=== PATIENT | female | born 1935 | race Two or more races ===

== ENCOUNTER 2016-07-03 10:22 | Inpatient (IN) | payer MEDICARE, OTHER ==
[~2016-07-03] VITALS: Ht 157.5 cm; Wt 64.3 kg
--- NOTE | 2016-07-03 11:22 | RADRPT ---
PROCEDURE: XR Chest. CLINICAL INDICATION: Chest pain TECHNIQUE: Chest PA and lateral COMPARISON: None available FINDINGS: Sternotomy and CABG. Left humeral ORIF. The mediastinal structures are unremarkable. There is calcification of the thoracic aorta (consiste nt with atherosclerosis). The heart is normal in size and configuration. The pulmonary vascularity is normal. There is mild interstitial disease.. No consolidation is identified. The pleural spac es are unremarkable. There is diffuse osteopenia. There are senescent changes of the axial skeleton. IMPRESSION: Calcification of the thoracic aorta (consistent with atherosclerosis). Mild interstitial disease No evidence for active cardiopulmonary disease. RPTAT: HGDB .Reed Whitten MD, MD Date Time Electronically viewed and signed by .Reed Whitten MD, MD on 07/03/2016 11:22 .B/
--- NOTE | 2016-07-03 11:26 | RADRPT ---
PROCEDURE: XR Pelvis. CLINICAL INDICATION: Pelvic pain TECHNIQUE: Single AP view performed. COMPARISON: No prior studies are available for comparison. FINDINGS: There is diffuse osteopenia. There is an acute nondisplaced right subcapital femoral fracture. The hip joints are unremarkable. The sacroiliac joints are unremarkable. The soft tissues are unremarka ble. IMPRESSION: Diffuse osteopenia Acute nondisplaced right subcapital femoral fracture RPTAT: HGDB Case was discussed with Dr. Luevano .Reed Whitten MD, MD Date Time Electronically viewed and signed by .Reed Whitten MD, on 07/03/2016 11:26 .B/
--- NOTE | 2016-07-03 11:28 | RADRPT ---
PROCEDURE: XR right hip. CLINICAL INDICATION: Hip pain TECHNIQUE: AP and lateral views available for review. COMPARISON: None available FINDINGS: There is diffuse osteopenia. There is an acute nondisplaced subcapital femoral fracture. No osseou s lesions are identified. The joints are unremarkable. The soft tissues are unremarkable. IMPRESSION: Diffuse osteopenia Acute nondisplaced subcapital femoral fracture RPTAT: HGDB Case discussed with Dr. Luevano .Reed Whitten MD, MD Date Time Electronically viewed and signed by .Reed Whitten MD, MD on 07/03/2016 11:27 .B/
[2016-07-03 11:33] LABS: BASOPHILS % 0.4 % (0.0-2.0); EOSINOPHILS # 0.1 10^3/ul (0.0-0.5); EOSINOPHILS % 0.8 % (0.0-7.0); HEMATOCRIT 25.3 % (37.0-47.0); HEMOGLOBIN 8.6 g/dl (12.0-16.0); LYMPHOCYTES % 15.9 % (15.0-51.0); MEAN CORPUSCULAR HEMOGLOBIN 30.2 pg (29.0-33.0); MEAN CORPUSCULAR HGB CONC 33.9 g/dl (32.0-37.0); MEAN PLATELET VOLUME 8.1 fl (7.4-10.4); MONOCYTE # 0.5 10^3/ul (0.3-0.9); NEUTROPHILS % 75.9 % (39.0-77.0); PLATELET COUNT 203 10^3/UL (140-440); RED BLOOD COUNT 2.84 10^6/ul (4.20-5.40); RED CELL DISTRIBUTION WIDTH 16.3 % (11.5-14.5); UNCORRECTED WBC 6.6 10^3/ul (4.8-10.8); WHITE BLOOD COUNT 6.6 10^3/ul (4.8-10.8)
[2016-07-03 11:37] LABS: CONDITION 1; INR 1.13; LH ANALYZER COMMENTS 1; PROTIME 14.5 Sec (12.2-14.2); PT RATIO 1.1
[2016-07-03 11:38] LABS: PARTIAL THROMBOPLASTIN TIME 30.5 Sec (25.0-35.0)
[2016-07-03 11:43] LABS: CHLORIDE 113 mmol/L (97-110); SODIUM 142 mmol/L (135-144)
[2016-07-03 11:46] LABS: CREATININE 2.98 mg/dl (0.44-1.00)
[2016-07-03 11:47] LABS: ANION GAP 23 (8-16); BLOOD UREA NITROGEN 53 mg/dl (7-20); CALCIUM 9.2 mg/dl (8.4-10.2); CARBON DIOXIDE 12 mmol/L (21-31); GLUCOSE 146 mg/dl (70-220)
[2016-07-03 11:52] LABS: TROPONIN-I < 0.012 ng/ml (0.00-0.12)
[2016-07-03 11:53] LABS: POTASSIUM 6.4 mmol/L (3.5-5.1)
[2016-07-03] MEDS ORDERED: BISACODYL 10 MG SUPP PR PRN (12:00)
[2016-07-03] MEDS ORDERED: HYDROCODONE/APAP (5/325) TAB PO PRN (12:00)
[2016-07-03] MEDS ORDERED: ACETAMINOPHEN 650 MG SUPP PR PRN (12:00)
[2016-07-03] MEDS ORDERED: hydrALAzine 20 MG INJ IV PRN (12:00)
[2016-07-03] MEDS ORDERED: NA POLYST SULFON 15 GM/60 ML BTL PO ONE (12:00)
[2016-07-03] MEDS ORDERED: NACL 0.9% 3 ML SYG IV SCH (12:00)
[2016-07-03] MEDS ORDERED: ONDANSETRON 4 MG INJ IV PRN (12:00)
[2016-07-03] MEDS ORDERED: ARIP2TAB8 PO (12:01)
[2016-07-03] MEDS ORDERED: SERT50TA PO (12:01)
[2016-07-03] MEDS ORDERED: SPIR25TA PO (12:02)
[2016-07-03] MEDS ORDERED: CARV12.579 PO (12:02)
[2016-07-03] MEDS ORDERED: CRES10 PO (12:03)
[2016-07-03] MEDS ORDERED: BENA5TAB2 PO (12:03)
[2016-07-03] MEDS ORDERED: CLOP75TA27 PO (12:04)
[2016-07-03 12:05] LABS: ADD UMIC YES; URINE BILIRUBIN (Dip) NEGATIVE (NEGATIVE); URINE BLOOD (Dip) TRACE (NEGATIVE); URINE COLOR LT. YELLOW (YELLOW); URINE GLUCOSE (Dip) NEGATIVE (NEGATIVE); URINE KETONES (Dip) NEGATIVE (NEGATIVE); URINE LEUKOCYTE ESTERASE (Dip) 1+ (NEGATIVE); URINE NITRITE (Dip) NEGATIVE (NEGATIVE); URINE TOTAL PROTEIN (Dip) 1+ (NEGATIVE); URINE UROBILINOGEN (Dip) 0.2 E.U./dL (0.1-1.0)
[2016-07-03] MEDS ORDERED: FERR220S2 PO (12:05)
--- NOTE | 2016-07-03 12:06 | ERA ---
ER Documentation Chief Complaint Date/Time DATE: 07/03/16 TIME: 1027 Chief Complaint ground level fall with R hip pain HPI 80-year-old female presents to the emergency department by ambulance complaining of right hip pain. It is a limited Jamaican speaker. History available from my conversations with the family. According to the family, patient had a mechanical slip and fall yesterday. Since then, she has been unable to bear weight on the right lower extremity. She continued to have severe pain in the paramedics were called this morning. She reports no numbness or tingling. In regards to the fall, she reports no loss of consciousness, palpitations or syncopal type sensations. 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 Pre-hospital vital signs were reviewed. Pre-hospital diagnostic tests were reviewed. ROS All systems reviewed and are negative except as per history of present illness. Medications Home Meds Reported Medications Carvedilol* (Carvedilol*) 12.5 Mg Tablet, 12.5 MG PO BID, #60 TAB 07/03/16 Sertraline Hcl* (Zoloft*) 50 Mg Tablet, 50 MG PO DAILY, #30 TAB 07/03/16 Aripiprazole* (Abilify*) 2 Mg Tablet, 2 MG PO DAILY, #30 TAB 07/03/16 FmHx Noncontributory for chief complaint Physical Exam Vitals Vital Signs Date Time Temp Pulse Resp B/P Pulse Ox O2 Delivery O2 Flow Rate FiO2 07/03/16 11:25 98.3 85 20 137/85 98 Room Air 07/03/16 10:27 96.9 97 20 186/80 95 Physical Exam GENERAL: Patient is a frail elderly ill-appearing female HEENT: Pupils equal, round, and reactive to light. EOMI. There is no scleral icterus. NECK: C-spine is soft and supple, there is no meningismus. There is no cervical lymphadenopathy. LUNGS: Clear to auscultation bilaterally. There are no rales, wheezes or rhonchi. HEART: Regular rate and rhythm, no murmurs, clicks, rubs or gallops. ABDOMEN: Soft, non-tender, non-distended. There are bowel sounds in all four quadrants. No rebound or guarding. EXTREMITIES: There is no peripheral cyanosis or edema. No focal swelling or erythema. Patient is uncomfortable moving the right hip in flexion. The other extremities appear to be normal NEURO: The patient moves all four extremities with 5/5 strength. Cranial nerves II - XII are intact. Normal gait. Alert and oriented SKIN: There is no apparent rash or petechiae. HEME/LYMPHATIC: There is no evidence of excessive bruising or lymphedema. PSYCHIATRIC: The patient does not appear anxious or depressed. Result Diagram: 07/03/16 1045 07/03/16 1045 Results 24 hrs Laboratory Tests Test 07/03/16 10:45 Activated Partial Thromboplast Time 30.5Sec Anion Gap 23 Basophils # 0.010^3/ul Basophils % 0.4% Blood Morphology Comment Blood Urea Nitrogen 53mg/dl Calcium Level 9.2mg/dl Carbon Dioxide Level 12mmol/L Chloride Level 113mmol/L Creatinine 2.98mg/dl Eosinophils # 0.110^3/ul Eosinophils % 0.8% Glucose Level 146mg/dl Hematocrit 25.3% Hemoglobin 8.6g/dl INR International Normalized Ratio 1.13 Lymphocytes # 1.010^3/ul Lymphocytes % 15.9% Mean Corpuscular Hemoglobin 30.2pg Mean Corpuscular Hemoglobin Concent 33.9g/dl Mean Corpuscular Volume 89.0fl Mean Platelet Volume 8.1fl Monocytes # 0.510^3/ul Monocytes % 7.0% Neutrophils # 5.010^3/ul Neutrophils % 75.9% Nucleated Red Blood Cells # 0.010^3/ul Nucleated Red Blood Cells % 0.0/100WBC Platelet Count 38171^3/UL Potassium Level 6.4mmol/L Prothrombin Time 14.5Sec Prothrombin Time Ratio 1.1 Red Blood Count 2.8410^6/ul Red Cell Distribution Width 16.3% Sodium Level 142mmol/L Troponin I < 0.012ng/ml White Blood Count 6.610^3/ul Current Medications Medications (Trade) Dose Ordered Sig/Chriss Route PRN Reason Start Time Stop Time Status Last Admin Dose Admin IV Flush (NS 3 ml) 3 ml PER PROTOCOL IV 07/03/16 12:00 UNV Ondansetron HCl (Zofran Inj) 4 mg Q6H PRN IV NAUSEA AND/OR VOMITING 07/03/16 12:00 UNV Acetaminophen (Tylenol Tab) 650 mg Q6H PRN PO PAIN LEVEL 1-3 OR FEVER 07/03/16 12:00 UNV Acetaminophen (Tylenol Supp) 650 mg Q6H PRN [place] PAIN LEVEL 1-3 OR FEVER 07/03/16 12:00 UNV Acetaminophen/ Hydrocodone Bitart ([place] (5/325)) 1 tab Q6H PRN PO MODERATE PAIN LEVEL 4-6 07/03/16 12:00 UNV Acetaminophen/ Hydrocodone Bitart ([place] (5/325)) 2 tab Q6H PRN PO SEVERE PAIN LEVEL 7-10 07/03/16 12:00 UNV Morphine Sulfate (morphine) 2 mg Q4H PRN IV SEVERE PAIN LEVEL 7-10 07/03/16 12:00 UNV Docusate Sodium (Colace) 100 mg Q12H PRN PO CONSTIPATION 07/03/16 12:00 UNV Magnesium Hydroxide (Milk Of Mag) 30 ml DAILY PRN PO CONSTIPATION 07/03/16 12:00 UNV Bisacodyl (Dulcolax Supp) 10 mg DAILY PRN [place] CONSTIPATION 07/03/16 12:00 UNV Pantoprazole (Protonix Iv) 40 mg DAILY@06 IV 07/04/16 06:00 UNV Hydralazine HCl (Apresoline) 10 mg Q4 PRN IV sbp>160 07/03/16 12:00 UNV Procedures/MDM Patient was taken to a room, seen and evaluated. Comfort measures were initiated. Diagnostic tests were ordered and reviewed. 3 LEAD RHYTHM STRIP: Normal sinus rhythm without ectopy EK lead EKG reviewed by myself: Normal Sinus Rhythm Left axis deviation Nonspecific ST and T-wave changes without ST elevation or peak T waves Impression: Abnormal EKG with no evidence of severe hyperkalemia or significant ischemia RADIOLOGY: reviewed with the radiologist CONSULTATION: hospitalist was notified for admission. Nephrology consultation will be arranged via the hospitalist. I spoke with Dr. Byrd for orthopedic consultation REEVALUATION: Patient remained hemodynamically stable and comfortable in the emergency room MEDICAL DECISION MAKING: Patient presents after a fall. From a trauma standpoint, patient has been evaluated for significant injury. Patient is evidence of a operative hip fracture that will require admission to the hospital From a medical standpoint, the fall seems to be related to a geriatric syndrome with multiple causes. I have reviewed medications and evaluated the patient for infection, electrolyte concerns, ischemia and other acute medical concerns. Patient has evidence of worsening renal failure with what appears to be now dialysis requiring renal failure with an acidosis and hyperkalemia as well as a significant anemia. Nephrology consultation will be arranged and patient will require dialysis. I have provided Kayexalate. Patient has no EKG changes and does not require further intervention for the potassium. CRITICAL CARE: Time:>35 minutes Patient has a significant chance of clinical deterioration Treatments/Evaluations: Close monitoring and treatment of vital signs, renal status, severe electrolyte concerns, as well as orthopedic injuries Departure Diagnosis: Primary Impression: Closed right hip fracture Additional Impressions: Renal failure Acidosis Hyperkalemia ISRA REAL Jul 03, 2016 12:06
[2016-07-03] MEDS ORDERED: SIN25100 PO (12:07)
[2016-07-03] MEDS ORDERED: MEG40/1 PO (12:08)
[2016-07-03] MEDS ORDERED: ASPI-664 PO (12:09)
[2016-07-03] MEDS ORDERED: SITA1TAB PO (12:10)
[2016-07-03] MEDS ORDERED: FLUT16SP17 NASAL (12:11)
[2016-07-03] MEDS ORDERED: LORA10TA3 PO (12:12)
[2016-07-03] MEDS ORDERED: MECL-77 PO (12:13)
[2016-07-03] MEDS ORDERED: ESOM40CA PO (12:13)
[2016-07-03] MEDS ORDERED: XOP15INH INH (12:14)
[2016-07-03 12:16] LABS: BACTERIA,URINE MODERATE; URINE RBCS 0-2 /HPF (0)
[2016-07-03] MEDS: morphine 2 MG INJ IV PRN ×2 (13:17→21:31)
[2016-07-03] MEDS ORDERED: morphine 4 MG/ML VIAL IV STA (13:17)
--- NOTE | 2016-07-03 13:59 | CONS ---
Date/Time of Note Date/Time of Note DATE: 07/03/16 TIME: 13:55 Assessment/Plan Assessment/Plan Chief Complaint/Hosp Course Pre-op evaluation: The patient is to potentially undergo moderate risk surgery. She has a h/o cardiac disease including CABG but does not have active angina and in general is able to do her ADLs without symptoms. She does have an aortic stenosis murmur which on exam does not appear to be more than moderate but will need an echo to evaluate severity. If no severe , she should tolerate surgery and is at moderate risk. Hyperkalemia: likely from aldactone, ACEI s/p mechanical fall with hip fracture: awaiting surgical eval Chronic renal failure: per my discussion with her oncologist, her Cr was 3.3 2 weeks ago. 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 The patient is not able to provide much history but per the family she slipped in the restroom. The patient is able to ambulate on her own in the house without chest pain or SOB. per HPI Social History Smoking Status: Never smoker Exam/Review of Systems Vital Signs Vitals Vital Signs Date Time Temp Pulse Resp B/P Pulse Ox O2 Delivery O2 Flow Rate FiO2 07/03/16 11:25 98.3 85 20 137/85 98 Room Air Exam Constitutional: alert, oriented Head: atraumatic, normocephalic Neck: No jvd Respiratory: clear to auscultation, No crackles/rales Cardiovascular: regular rate and rhythm, systolic murmur (3/6 mid-late peaking , preserved S2), No edema Gastrointestinal: soft, No non-tender Neurological: nl mental status, nl speech Skin: No rash or lesions Results EKG: sinus, nonspecific conduction delay, nonspecific TW changes Result Diagram: 07/03/16 1045 07/03/16 1045 Results 24 hrs Laboratory Tests Test 07/03/16 10:45 07/03/16 11:33 Activated Partial Thromboplast Time 30.5 Anion Gap 23 H Basophils # 0.0 Basophils % 0.4 Blood Morphology Comment Blood Urea Nitrogen 53 H Calcium Level 9.2 Carbon Dioxide Level 12 L Chloride Level 113 H Creatinine 2.98 H Eosinophils # 0.1 Eosinophils % 0.8 Glucose Level 146 Hematocrit 25.3 L Hemoglobin 8.6 L INR International Normalized Ratio 1.13 Lymphocytes # 1.0 Lymphocytes % 15.9 Mean Corpuscular Hemoglobin 30.2 Mean Corpuscular Hemoglobin Concent 33.9 Mean Corpuscular Volume 89.0 Mean Platelet Volume 8.1 Monocytes # 0.5 Monocytes % 7.0 Neutrophils # 5.0 Neutrophils % 75.9 Nucleated Red Blood Cells # 0.0 Nucleated Red Blood Cells % 0.0 Platelet Count 203 Potassium Level 6.4 *H Prothrombin Time 14.5 H Prothrombin Time Ratio 1.1 Red Blood Count 2.84 L Red Cell Distribution Width 16.3 H Sodium Level 142 Troponin I < 0.012 White Blood Count 6.6 Urine Bacteria MODERATE Urine Bilirubin NEGATIVE Urine Clarity CLOUDY Urine Color LT. YELLOW Urine Epithelial Cells FEW Urine Glucose NEGATIVE Urine Hemoglobin TRACE Urine Ketones NEGATIVE Urine Leukocyte Esterase 1+ H Urine Microscopic RBC 0-2 Urine Microscopic WBC 5-10 Urine Nitrite NEGATIVE Urine Specific [place] 1.020 Urine Total Protein 1+ H Urine Urobilinogen 0.2 E.U./dL Urine pH 5.5 Medications Medications Current Medications Ondansetron HCl (Zofran Inj) 4 mg Q6H PRN IV NAUSEA AND/OR VOMITING; Start at 12:00 Acetaminophen (Tylenol Tab) 650 mg Q6H PRN PO PAIN LEVEL 1-3 OR FEVER; Start at 12:00 Acetaminophen (Tylenol Supp) 650 mg Q6H PRN [place] PAIN LEVEL 1-3 OR FEVER; Start 07/03/16 at 12:00 Acetaminophen/ Hydrocodone Bitart ([place] (5/325)) 1 tab Q6H PRN PO MODERATE PAIN LEVEL 4-6; Start 07/03/16 at 12:00 Acetaminophen/ Hydrocodone Bitart ([place] (5/325)) 2 tab Q6H PRN PO SEVERE PAIN LEVEL 7-10; Start 07/03/16 at 12:00 Morphine Sulfate (morphine) 2 mg Q4H PRN IV SEVERE PAIN LEVEL 7-10 Last administered on 07/03/16t 13:17; Admin Dose 2 MG; Start 07/03/16 at 12:00 Docusate Sodium (Colace) 100 mg Q12H PRN PO CONSTIPATION; Start 07/03/16 at 12: 00 Magnesium Hydroxide (Milk Of Mag) 30 ml DAILY PRN PO CONSTIPATION; Start at 12:00 Bisacodyl (Dulcolax Supp) 10 mg DAILY PRN [place] CONSTIPATION; Start 07/03/16 at 12 :00 Pantoprazole (Protonix Iv) 40 mg DAILY@06 IV ; Start 07/03/16 at 13:00 Hydralazine HCl (Apresoline) 10 mg Q4 PRN IV sbp>160; Start 07/03/16 at 12:00 CINDY MACEDO Jul 03, 2016 13:59
[2016-07-03] MEDS ORDERED: INSULIN LISPRO 100 UNIT/ML VIAL SC STA (14:13)
[2016-07-03] MEDS ORDERED: LEVALBUTEROL (HFA) 15 GM INHALER INH PRN (14:30)
[2016-07-03] MEDS ORDERED: DEXTROSE 50% 50 ML SYRINGE IV ONE (14:30)
[2016-07-03] MEDS ORDERED: MECLIZINE 25 MG TAB PO PRN (14:30)
[2016-07-03] MEDS ORDERED: CA GLUCONATE (50 MG/ML) IV SYG IV* ONE (14:30)
--- NOTE | 2016-07-03 14:30 | HP ---
Date/Time of Note Date/Time of Note DATE: 07/03/16 TIME: 14:17 Assessment/Plan VTE Prophylaxis VTE Prophylaxis Intervention: SCD's Lines/Catheters Urinary Cath still in place: Yes Reason Cath still needed: other (indicate) (monitor I&O) Assessment/Plan Chief Complaint/Hosp Course Assessment and plan 1. Right hip fracture. Considering patient's cardiac history we'll get cardiology clearance. Follow-up on echocardiogram. Orthopedic surgeon notified. Continue with analgesics as needed. Tentative plan for surgical intervention on 07/04/2016 2. 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 Patient does follow-up with her physician Dr. Valenzuela as outpatient for this issue. She is status post radiation therapy reportedly 3 weeks ago. Patient follow-up with outpatient oncologist 3. Renal insufficiency. Patient was reported he told that she needed to have dialysis. We'll get knowledge architect to follow. 4. Hyperkalemia. Patient with potassium of 6.4. We'll give hyperkalemia cocktail. Follow-up with knowledge architect recommendations 5. Anemia likely of chronic disease. We'll follow-up on iron panel. Transfuse PRBC as needed 6. History of CAD with previous CABG. We'll resume patient's antiplatelet therapy 7. Essential hypertension. Tinea on antihypertensives and adjust as needed 8. History of dyslipidemia. Follow-up on fasting lipid panel. 9. Reported history of diabetes. Follow up on A1c Admission process time is 40 minutes Discussed plan of care with Dr. Gross Problems: HPI/ROS Admit Date/Time Admit Date/Time Hx of Present Illness This is a 80-year-old female with past medical history of reported left-sided breast cancer status post mastectomy as well as bone metastasis, myocardial infarction roughly 2003 with CABG, depression, diabetes, hypertension, dyslipidemia, obesity, who came to [facility] after suffering from a mechanical fall. According to the patient she was going to the restroom at roughly 12 AM last night. She reported that she tripped and fell. She denies any loss of consciousness or chest pain or shortness of breath or any dizziness or headache associated with it. She did report that she only fell on her right hip and subsequently went to [facility] for further evaluation. She did have pelvic x-ray that did show acute right subcapital femoral fracture. She was also noted to be slightly anemic with hemoglobin of 8.6 and hematocrit 25.3. She did have potassium of 6.4 BUN of 53 and a creatinine of 2.98. Initial troponin was 0.012. Of note patient did state that she does follow-up with her primary care physician as outpatient (Dr. Valenzuela: [phone]). She was told that she would need to be started on dialysis soon. Currently the patient remains alert and oriented. She does report having some right hip pain. No other specific complaints. We will evaluate her for the aforementioned issues ROS 12 point review of systems obtained and entirely negative except that mentioned in the history of present illness PMH/Family/Social Past Medical History left-sided breast cancer status post mastectomy as well as bone metastasis, myocardial infarction roughly 2003 with CABG, depression, diabetes, hypertension , dyslipidemia, obesity Social History Alcohol Use: none Smoking Status: Never smoker Drug Use: none Exam/Review of Systems Vital Signs Vitals Vital Signs Date Time Temp Pulse Resp B/P Pulse Ox O2 Delivery O2 Flow Rate FiO2 07/03/16 11:25 98.3 85 20 137/85 98 Room Air Exam Exam General: No acute signs or symptoms of distress Eyes: pupils equal round, Anicteric sclera Neck: Supple nontender, no JVD Cardiac: S1, S2 auscultated, regular rhythm and rate Pulmonary: No coarse rhonchi or breathing auscultated GI: Abdomen soft nontender nondistended, bowel sounds active Extremities: Pain on palpation of bilateral lower extremity Skin: Clean dry and intact Neurologic: Alert to person place and time and situation Labs Result Diagram: 07/03/16 1045 07/03/16 1045 Medications Medications Current Medications Ondansetron HCl (Zofran Inj) 4 mg Q6H PRN IV NAUSEA AND/OR VOMITING; Start at 12:00 Acetaminophen (Tylenol Tab) 650 mg Q6H PRN PO PAIN LEVEL 1-3 OR FEVER; Start at 12:00 Acetaminophen (Tylenol Supp) 650 mg Q6H PRN [place] PAIN LEVEL 1-3 OR FEVER; Start 07/03/16 at 12:00 Acetaminophen/ Hydrocodone Bitart ([place] (5/325)) 1 tab Q6H PRN PO MODERATE PAIN LEVEL 4-6; Start 07/03/16 at 12:00 Acetaminophen/ Hydrocodone Bitart ([place] (5/325)) 2 tab Q6H PRN PO SEVERE PAIN LEVEL 7-10; Start 07/03/16 at 12:00 Morphine Sulfate (morphine) 2 mg Q4H PRN IV SEVERE PAIN LEVEL 7-10 Last administered on 07/03/16t 13:17; Admin Dose 2 MG; Start 07/03/16 at 12:00 Docusate Sodium (Colace) 100 mg Q12H PRN PO CONSTIPATION; Start 07/03/16 at 12: 00 Magnesium Hydroxide (Milk Of Mag) 30 ml DAILY PRN PO CONSTIPATION; Start at 12:00 Bisacodyl (Dulcolax Supp) 10 mg DAILY PRN [place] CONSTIPATION; Start 07/03/16 at 12 :00 Pantoprazole (Protonix Iv) 40 mg DAILY@06 IV ; Start 07/03/16 at 13:00 Hydralazine HCl (Apresoline) 10 mg Q4 PRN IV sbp>160; Start 07/03/16 at 12:00 Dextrose (D50w Syringe) 50 ml ONCE ONCE IV ; Start 07/03/16 at 14:30; Stop at 14:31; Status UNV Calcium Gluconate (Ca Gluc (Nicu)) 2 mg ONCE ONCE IV* ; Start 07/03/16 at 14:30 ; Stop 07/03/16 at 14:31; Status UNV JUNI NUNEZ Jul 03, 2016 14:29
[2016-07-03] MEDS ORDERED: NA BICARBONATE 8.4% 50 ML SYG ONE (14:55)
[2016-07-03] MEDS ORDERED: NA BICARBONATE 8.4% 50 ML SYG IV STA (14:58)
[2016-07-03] MEDS ORDERED: CALCIUM GLUCONATE 10% 2 GM in SOD CHLORIDE 0.9% 100 ML IVPB ONE (15:00)
[2016-07-03] MEDS ORDERED: GLUCAGON 1 MG INJ IM PRN (15:00)
[2016-07-03] MEDS ORDERED: DEXTROSE 50% 50 ML SYRINGE IV PRN ×2 (15:00)
[2016-07-03] MEDS ORDERED: GLUCOSE GEL 15 GRAM TUBE BUCCAL PRN (15:00)
[2016-07-03] MEDS ORDERED: GLUCOSE GEL 15 GRAM TUBE PO PRN ×2 (15:00)
[2016-07-03 15:05] LABS: HAAIG REFLEX REFLEX FILED
[2016-07-03 16:06] LABS: HEPATITIS B CORE ANTIBODY NEGATIVE (NEGATIVE)
--- NOTE | 2016-07-03 16:13 | RADRPT ---
PROCEDURE: Renal US. CLINICAL INDICATION: Acute kidney injury. TECHNIQUE: Multiple sonographic images of the kidneys were obtained. The images were reviewed on a PACS workstation. COMPARISON: No. FINDINGS: The kidneys are well visualized. The right kidney measures 10.7 cm sagittal by 4.4 x 5.5 cm.. The le ft kidney measures 10.6 cm sagittal by 4.7 x 4.4 cm. The kidneys are echogenic. There is blood flow to both kidneys. Urinary bladder is unremarkable. There is no evidence of hydronephrosis. IMPRESSION: 1. Bilateral echogenic kidneys consistent with medical renal disease. 2. No evidence of hydronephrosis. RPTAT:AAJJ Physician Justice Date Time Electronically viewed and signed by Physician Justice on 07/03/2016 16:13 ARASELI/
[2016-07-03 18:20] VITALS: TEMP 98.3
[2016-07-03 19:36] VITALS: Ht 157.5 cm; Wt 64.3 kg
--- NOTE | 2016-07-03 19:38 | QN ---
Documentation Comment [id number] consult A/P YOLETTE HYPERKALEMIA DM CKD HIP FRACTURE ANEMIA METABOLIC ACIDOSIS PLAN PER ORDER PERRY ALVARES MD Jul 03, 2016 19:38
[2016-07-03 20:02] VITALS: BP 134/63; RESP 15
[2016-07-03 20:45] VITALS: PULSE 99
[2016-07-03] MEDS: FLUTICASONE 0.05% 16 GM NAS SPRAY NASAL SCH (21:00)
[2016-07-03] MEDS: INSULIN ASPART [NOVOLOG] 3 ML PEN SC SCH (21:00)
[2016-07-03] MEDS: ATORVASTATIN 10 MG TAB PO SCH (21:31)
[2016-07-03] MEDS: BENAZEPRIL 5 MG TAB PO SCH (21:31)
[2016-07-04] VITALS (11 sets, daily range): BP systolic 114–139; BP diastolic 57–67; PULSE 80–94; RESP 18–20
[2016-07-04] MEDS: INSULIN ASPART [NOVOLOG] 3 ML PEN SC SCH ×6 (00:36→20:50)
[2016-07-04] MEDS: ACETAMINOPHEN 325 MG TAB PO PRN ×2 (07:09→20:40)
[2016-07-04] MEDS: PANTOPRAZOLE 40 MG INJ IV SCH (07:09)
[2016-07-04] MEDS: morphine 2 MG INJ IV PRN ×2 (07:40→09:11)
[2016-07-04 07:52] LABS: BASOPHILS % 0.4 % (0.0-2.0); EOSINOPHILS # 0.1 10^3/ul (0.0-0.5); EOSINOPHILS % 2.8 % (0.0-7.0); HEMATOCRIT 24.4 % (37.0-47.0); HEMOGLOBIN 8.4 g/dl (12.0-16.0); LYMPHOCYTES # 0.5 10^3/ul (0.8-2.9); MEAN CORPUSCULAR HEMOGLOBIN 30.4 pg (29.0-33.0); MEAN CORPUSCULAR HGB CONC 34.5 g/dl (32.0-37.0); MEAN CORPUSCULAR VOLUME 88.2 fl (82.0-101.0); MEAN PLATELET VOLUME 7.8 fl (7.4-10.4); MONOCYTE # 0.4 10^3/ul (0.3-0.9); MONOCYTES % 9.1 % (0.0-11.0); NEUTROPHIL # 3.3 10^3/ul (1.6-7.5); NEUTROPHILS % 75.7 % (39.0-77.0); PLATELET COUNT 181 10^3/UL (140-440); RED BLOOD COUNT 2.77 10^6/ul (4.20-5.40); RED CELL DISTRIBUTION WIDTH 16.7 % (11.5-14.5); UNCORRECTED WBC 4.4 10^3/ul (4.8-10.8); WHITE BLOOD COUNT 4.4 10^3/ul (4.8-10.8)
[2016-07-04 07:57] LABS: CONDITION 1; LH ANALYZER COMMENTS 1
[2016-07-04 08:07] LABS: ALBUMIN 4.1 g/dl (3.3-4.9)
[2016-07-04 08:09] LABS: CREATININE 2.59 mg/dl (0.44-1.00); POTASSIUM 4.7 mmol/L (3.5-5.1)
[2016-07-04 08:10] LABS: ALBUMIN/GLOBULIN RATIO 1.17; BILIRUBIN,INDIRECT 0.1 mg/dl (0-1.1); BILIRUBIN,TOTAL 0.1 mg/dl (0.2-1.3); CALCIUM 9.1 mg/dl (8.4-10.2); PHOSPHORUS 3.6 mg/dl (2.5-4.9); TOTAL PROTEIN 7.6 g/dl (6.1-8.1)
[2016-07-04 08:11] LABS: CHOL/HDL RATIO 4.5 RATIO; MAGNESIUM 1.8 mg/dl (1.7-2.5)
[2016-07-04 08:20] LABS: T3 UPTAKE 35.9 % (23.5-40.5)
[2016-07-04 08:34] LABS: THYROID STIMULATING HORMONE 3.02 MIU/L (0.465-4.680)
[2016-07-04] MEDS: ARIPIPRAZOLE 2 MG TAB PO SCH (08:58)
[2016-07-04] MEDS: CARBIDOPA/LEVODOPA (25/100) TAB PO SCH (08:58)
[2016-07-04] MEDS: BENAZEPRIL 5 MG TAB PO SCH ×2 (08:58→20:41)
[2016-07-04] MEDS: SPIRONOLACTONE 25 MG TAB PO SCH (08:59)
[2016-07-04] MEDS: CLOPIDOGREL 75 MG TAB PO SCH (08:59)
[2016-07-04] MEDS: SERTRALINE 50 MG TAB PO SCH (08:59)
[2016-07-04] MEDS: LORATADINE 10 MG TAB PO SCH (08:59)
[2016-07-04] MEDS: ASPIRIN (EC) 81 MG TAB PO SCH (09:00)
[2016-07-04] MEDS ORDERED: INFLUENZA VIRUS VACCINE 0.5 ML (DISPENSING) IM* ONE (09:00)
[2016-07-04] MEDS: FLUTICASONE 0.05% 16 GM NAS SPRAY NASAL SCH ×3 (09:00→23:56)
[2016-07-04] MEDS: SODIUM BICARBONATE (IV ADD) 100 MEQ in DEXTROSE 5% 900 ML IV SCH ×3 (09:12→23:50)
--- NOTE | 2016-07-04 09:54 | CONS ---
DATE OF ADMISSION: 07/03/2016 DATE OF CONSULTATION: TYPE OF CONSULTATION: Nephrology. Thank you, Dr. Gill, for kindly asking me to see this patient in nephrology consultation. HISTORY OF PRESENT ILLNESS: The patient is an elderly female with history of CKD, hypertension, dyslipidemia, diabetes mellitus who presented with right hip pain after a fall. Patient noted to have a hematocrit 25.3, potassium 6.4, and got Kayexalate and repeat was 5.2. 5.2. In view of patient's abnormal electrolytes, nephrology consultation was requested. Patient had ultrasound of the kidney done that shows bilateral echogenic kidneys. The patient also had a pelvic x-ray that shows acute nondisplaced right subcapital femoral fracture. A hip x-ray showed acute nondisplaced subcapital femoral fracture and a chest x- ray shows calcification of the thoracic aorta and mild interstitial disease. PAST MEDICAL HISTORY: The patient's past medical history as mentioned, diabetes , hypertension, CKD, and history of CAD, dyslipidemia, history of CABG, history of anemia, history of breast cancer, status post surgery and treatment. The patient also has a history of depression. ALLERGIES 1. PENICILLIN. 2. AMPICILLIN. SOCIAL HISTORY: Negative. FAMILY HISTORY: Negative. MEDICATION HISTORY: The patient at home is on 1. Abilify. 2. Aspirin. 3. Benazepril. 4. Carbidopa/levodopa. 5. Coreg. 6. Plavix. 7. Nexium. 8. Iron sulfate. 9. Fluticasone. 10. Lovenox. 11. Loratadine. 12. Meclizine. 13. Megace. 14. Crestor. 15. Zoloft. 16. Metformin. 17. Januvia. REVIEW OF SYSTEMS HEENT: Unremarkable. RESPIRATORY: Unremarkable. CARDIOVASCULAR: Unremarkable. ABDOMEN: Unremarkable. EXTREMITIES: Complaining of hip pain. Range of motion restricted in lower extremities per patient. ____ unremarkable for edema. CENTRAL NERVOUS SYSTEM: Unremarkable. PHYSICAL EXAMINATION: GENERAL: The patient is awake, alert. VITAL SIGNS: Pulse was ____, blood pressure 144/80. HEAD: Atraumatic, normocephalic. Pupils equal, reactive. NECK: Supple, no JVD. LUNGS: Clear. CARDIOVASCULAR: S1, S2 normal. ABDOMEN: Surgical scar noted in abdominal area and surgical scar in the _ area because of hysterectomy. Nontender. EXTREMITIES: There is no cyanosis, clubbing, or edema. CENTRAL NERVOUS SYSTEM: The patient is awake, alert, no deficit. MUSCULOSKELETAL: The range of motion restricted in the lower extremities because of pain. LABORATORY DATA: BUN 50, creatinine 2.98. Urinalysis is negative. Hematocrit 25.3. IMPRESSION: 1. Patient has [id number] kidney disease, acute renal failure due to prerenal azotemia. 2. Patient has underlying chronic kidney disease, possibly hypertensive nephrosclerosis, and possible diabetic nephropathy. 3. Hyperkalemia, worsened by aldosterone antagonist. 4. Anemia of possibly chronic kidney disease. 5. Metabolic acidosis. 6. The patient also is status post fall with right hip fracture. 7. Coronary artery disease with coronary artery bypass graft. 8. History of hysterectomy. 9. History of breast cancer, surgery on treatment. 10. Underlying chronic tubular interstitial nephritis. 11. Question of proteinuria. PLAN: To obtain urine sodium and urine creatinine ratio. Patient will have gentle IV fluid. Patient will also be given IV fluid with sodium bicarbonate to correct metabolic acidosis. Orders were done. Thank you Dr. Gill, for kindly asking me to see this patient in nephrology consultation. Dictated By: PERRY WOODALL/FRANCIE Conf#: [id number] DID#: [id number]
--- NOTE | 2016-07-04 12:13 | CONS ---
Date/Time of Note Date/Time of Note DATE: 07/04/16 TIME: 12:10 Assessment/Plan Assessment/Plan Chief Complaint/Hosp Course IMPRESSION: 1. Patient has [id number] kidney disease, acute renal failure due to prerenal azotemia. 2. Patient has underlying chronic kidney disease, possibly hypertensive nephrosclerosis, and possible diabetic nephropathy. 3. Hyperkalemia, worsened by aldosterone antagonist. 4. Anemia of possibly chronic kidney disease. 5. Metabolic acidosis. 6. The patient also is status post fall with right hip fracture. 7. Coronary artery disease with coronary artery bypass graft. 8. History of hysterectomy. 9. History of breast cancer, surgery on treatment. 10. Underlying chronic tubular interstitial nephritis. 11. proteinuria. plan ck bmp Problems: Consultation Date/Type/Reason Admit Date/Time Jul 03, 2016 at 11:46 Initial Consult Date 07/03/16 Type of Consultation: renal Referring Provider: JUNI NUNEZ 24 HR Interval Summary Constitutional: no complaints Exam/Review of Systems Vital Signs Vitals Vital Signs Date Time Temp Pulse Resp B/P Pulse Ox O2 Delivery O2 Flow Rate FiO2 07/04/16 11:55 98.2 86 18 114/57 96 07/03/16 18:20 Room Air Intake and Output 07/03/16 07/03/16 07/04/16 15:00 23:00 07:00 Intake Total 150 ml Output Total 750 ml Balance -600 ml Exam Respiratory: clear to auscultation Cardiovascular: regular rate and rhythm Gastrointestinal: bowel sounds (+), soft Extremities: No edema Results Result Diagram: 07/04/16 0554 07/04/16 0559 Results 24 hrs Laboratory Tests Test 07/03/16 16:55 07/03/16 21:17 07/04/16 00:29 07/04/16 04:15 Potassium Level 5.2 H Bedside Glucose 151 153 140 Test 07/04/16 05:54 07/04/16 05:59 07/04/16 07:47 Basophils # 0.0 Basophils % 0.4 Blood Morphology Comment Eosinophils # 0.1 Eosinophils % 2.8 Hematocrit 24.4 L Hemoglobin 8.4 L Lymphocytes # 0.5 L Lymphocytes % 12.0 L Mean Corpuscular Hemoglobin 30.4 Mean Corpuscular Hemoglobin Concent 34.5 Mean Corpuscular Volume 88.2 Mean Platelet Volume 7.8 Monocytes # 0.4 Monocytes % 9.1 Neutrophils # 3.3 Neutrophils % 75.7 Nucleated Red Blood Cells # 0.0 Nucleated Red Blood Cells % 0.0 Platelet Count 181 Red Blood Count 2.77 L Red Cell Distribution Width 16.7 H White Blood Count 4.4 #L Alanine Aminotransferase (ALT/SGPT) 40 Albumin 4.1 Albumin/Globulin Ratio 1.17 Alkaline Phosphatase 113 Anion Gap 24 H Aspartate Amino Transf (AST/SGOT) 38 Blood Urea Nitrogen 43 H Calcium Level 9.1 Carbon Dioxide Level 15 L Chloride Level 112 H Cholesterol Level 145 Cholesterol/HDL Ratio 4.5 Creatinine 2.59 H Direct Bilirubin 0.00 Free Thyroxine Index 2.01 Globulin 3.50 H Glucose Level 152 HDL Cholesterol 32 L Hemoglobin A1c 5.9 Indirect Bilirubin 0.1 LDL Cholesterol, Calculated 83 Magnesium Level 1.8 Phosphorus Level 3.6 Potassium Level 4.7 Sodium Level 146 H Thyroid Stimulating Hormone (TSH) 3.020 Thyroxine (T4) 5.6 Total Bilirubin 0.1 L Total Protein 7.6 Triglycerides Level 149 Triiodothyronine (T3) Uptake 35.9 Bedside Glucose 149 Medications Medications Current Medications Ondansetron HCl (Zofran Inj) 4 mg Q6H PRN IV NAUSEA AND/OR VOMITING; Start at 12:00 Acetaminophen (Tylenol Tab) 650 mg Q6H PRN PO PAIN LEVEL 1-3 OR FEVER Last administered on 07/04/16 07:09; Admin Dose 650 MG; Start 07/03/16 at 12:00 Acetaminophen (Tylenol Supp) 650 mg Q6H PRN [place] PAIN LEVEL 1-3 OR FEVER; Start 07/03/16 at 12:00 Acetaminophen/ Hydrocodone Bitart ([place] (5/325)) 1 tab Q6H PRN PO MODERATE PAIN LEVEL 4-6; Start 07/03/16 at 12:00 Acetaminophen/ Hydrocodone Bitart ([place] (5/325)) 2 tab Q6H PRN PO SEVERE PAIN LEVEL 7-10; Start 07/03/16 at 12:00 Morphine Sulfate (morphine) 2 mg Q4H PRN IV SEVERE PAIN LEVEL 7-10 Last administered on 07/03/16 21:31; Admin Dose 2 MG; Start 07/03/16 at 12:00 Docusate Sodium (Colace) 100 mg Q12H PRN PO CONSTIPATION; Start 07/03/16 at 12: 00 Magnesium Hydroxide (Milk Of Mag) 30 ml DAILY PRN PO CONSTIPATION; Start at 12:00 Bisacodyl (Dulcolax Supp) 10 mg DAILY PRN [place] CONSTIPATION; Start 07/03/16 at 12 :00 Pantoprazole (Protonix Iv) 40 mg DAILY@06 IV Last administered on 07/04/16 07: 09; Admin Dose 40 MG; Start 07/03/16 at 13:00 Hydralazine HCl (Apresoline) 10 mg Q4 PRN IV sbp>160; Start 07/03/16 at 12:00 Aripiprazole (Abilify) 2 mg DAILY PO Last administered on 07/04/16 08:58; Admin Dose 2 MG; Start 07/04/16 at 09:00 Aspirin (Halfprin) 81 mg DAILY PO ; Start 07/04/16 at 09:00 Benazepril HCl (Lotensin) 5 mg BID PO Last administered on 07/04/16 08:58; Admin Dose 5 MG; Start 07/03/16 at 21:00 Carbidopa/Levodopa (Sinemet (25/ 100)) 1 tab DAILY PO Last administered on 07/04 08:58; Admin Dose 1 TAB; Start 07/04/16 at 09:00 Carvedilol (Coreg) 12.5 mg BID PO Last administered on 07/04/16 08:59; Admin Dose 12.5 MG; Start 07/03/16 at 21:00 Clopidogrel Bisulfate (plaVIX) 75 mg DAILY PO Last administered on 07/04/16 08 :59; Admin Dose 75 MG; Start 07/04/16 at 09:00 Fluticasone Propionate (Flonase 0.05% Nasal) 1 spray BID NASAL ; Start 07/03/16 at 21:00 Loratadine (Claritin) 10 mg DAILY PO Last administered on 07/04/16 08:59; Admin Dose 10 MG; Start 07/04/16 at 09:00 Meclizine HCl (Antivert) 25 mg Q12H PRN PO DIZZINESS; Start 07/03/16 at 14:30 Sertraline HCl (Zoloft) 50 mg DAILY PO Last administered on 07/04/16 08:59; Admin Dose 50 MG; Start 07/04/16 at 09:00 Spironolactone (Aldactone) 25 mg DAILY PO Last administered on 07/04/16 08:59 ; Admin Dose 25 MG; Start 07/04/16 at 09:00 Atorvastatin Calcium (Lipitor) 10 mg QHS PO Last administered on 07/03/16 21: 31; Admin Dose 10 MG; Start 07/03/16 at 21:00 Insulin Aspart NOVOLOG *MILD* ALGORI... Q4 SC Last administered on 07/04/16 00 :36; Admin Dose 1 UNIT; Start 07/03/16 at 17:00 Sodium Bicarbonate/ Dextrose (Na Bicarb/D5W) 1,000 ml @ 60 mls/hr [id number] IV ; Start 07/03/16 at 14:30 Miscellaneous Information 1 ea NOTE XX ; Start 07/03/16 at 15:00 Glucose (Glutose) 15 gm Q15M PRN PO DECREASED GLUCOSE; Start 07/03/16 at 15:00 Glucose (Glutose) 22.5 gm Q15M PRN PO DECREASED GLUCOSE; Start 07/03/16 at 15: 00 Dextrose (D50w Syringe) 25 ml Q15M PRN IV DECREASED GLUCOSE; Start 07/03/16 at 15:00 Dextrose (D50w Syringe) 50 ml Q15M PRN IV DECREASED GLUCOSE; Start 07/03/16 at 15:00 Glucagon (Glucagen) 1 mg Q15M PRN IM DECREASED GLUCOSE; Start 07/03/16 at 15:00 Glucose (Glutose) 15 gm Q15M PRN BUCCAL DECREASED GLUCOSE; Start 07/03/16 at 15 :00 PERRY ALVARES MD Jul 04, 2016 12:13
[2016-07-04] MEDS: MEGESTROL (40 MG/ML) 10ML CUP PO SCH (12:34)
[2016-07-04 17:50] LABS: BASOPHILS % 0.2 % (0.0-2.0); EOSINOPHILS # 0.1 10^3/ul (0.0-0.5); EOSINOPHILS % 2.9 % (0.0-7.0); HEMATOCRIT 32.7 % (37.0-47.0); HEMOGLOBIN 11.2 g/dl (12.0-16.0); LYMPHOCYTES # 0.6 10^3/ul (0.8-2.9); LYMPHOCYTES % 15.2 % (15.0-51.0); MEAN CORPUSCULAR HGB CONC 34.2 g/dl (32.0-37.0); MEAN CORPUSCULAR VOLUME 84.8 fl (82.0-101.0); MEAN PLATELET VOLUME 7.9 fl (7.4-10.4); MONOCYTE # 0.6 10^3/ul (0.3-0.9); MONOCYTES % 13.8 % (0.0-11.0); NEUTROPHIL # 2.8 10^3/ul (1.6-7.5); NEUTROPHILS % 67.9 % (39.0-77.0); PLATELET COUNT 160 10^3/UL (140-440); RED BLOOD COUNT 3.86 10^6/ul (4.20-5.40); RED CELL DISTRIBUTION WIDTH 20.2 % (11.5-14.5); UNCORRECTED WBC 4.2 10^3/ul (4.8-10.8); WHITE BLOOD COUNT 4.2 10^3/ul (4.8-10.8)
[2016-07-04 17:57] LABS: CONDITION 1; LH ANALYZER COMMENTS 1
--- NOTE | 2016-07-04 18:25 | RADRPT ---
Echocardiogram Report Patient Name: LAURY GUSMAN Gender: Female Date: 1935 Study Date: 03-Jul-2016 Mold Shaker: Angel Young RDCS Location: 6 Ref. Physician: JUNI NUNEZ Quality: Adequate Procedures: Transthoracic echocardiogram with complete 2D, M-Mode, and doppler examination. Indications: Cardiac Clearance. 2D/M Mode Doppler Measurement Value Normal Ranges Measurement Value Normal Ranges LVIDd 2D 4.2 3.5 - 5.6 cm ANNIKA Vmax 1.4 cm2 LVIDs 2D 3.5 2.1 - 4.1 cm ANNIKA VTI 1.4 cm2 LVPWd 2D 0.9 0.6 - 1.1 cm AV Mean Doc 1.4 m/sec IVSd 2D 0.9 0.6 - 1.1 cm AV Mean PG 9.1 mmHg AoR Diam 2D 2.6 2.0 - 3.7 cm AV Peak Doc 2.1 m/sec EDV 2D 80.5 cm3 AV Peak PG 16.9 mmHg ESV 2D 41.8 cm3 AV VTI 40.7 cm LVOT Diam 1.8 cm LVOT Mean Doc 0.7 m/sec LVOT Mean PG 2.6 mmHg LVOT Peak Doc 1.2 m/sec LVOT Peak PG 5.8 mmHg LVOT VTI 23.4 cm MV E Peak Doc 0.9 m/sec MV A Peak Doc 1.0 m/sec MV E/A 0.9 MV Decel Time 103 msec MV Decel Cloud 9 MV E/A 0.9 TR Peak Doc 3.2 m/sec TR Peak PG 40.5 mmHg RVSP 44.0 mmHg Findings Left Ventricle: Lower limits of normal systolic function. Normal left ventricular cavity size. Normal left ventricular wall thickness. Ejection fraction is visually estimated at 50 %. Tissue Doppler/Mitral Doppler indices are consistent with impaired relaxation (Stage I diastolic dysfunction). These segments of the LV are hypokinetic septum base segment and mid septum segment. Right Ventricle: Normal right ventricular size. Normal right ventricular systolic function. Left Atrium: The left atrium is normal in size. Right Atrium: The right atrium is normal in size. Mitral Valve: Normal appearance and function of the mitral valve with trace physiologic regurgitation. Aortic Valve: Aortic valve Max velocity 2.06 m/sec. Max PG 17.00 mmHg. Mean PG 9.00 mmHg. Aortic sclerosis without stenosis. Aortic cusps appear mildly calcified. Trace aortic valve regurgitation. Tricuspid Valve: Normal appearance of the tricuspid valve. Estimated peak PA systolic pressure 44 mmHg. There is mild tricuspid regurgitation. Pulmonic Valve: Normal pulmonic valve appearance. Pericardium: Normal pericardium with no significant pericardial effusion. Aorta: Normal aortic root. IVC: Normal size and normal respiratory collapse consistent with normal right atrial pressure. Conclusions 1.The left ventricle is normal in size. 2.Overall left ventricular systolic function is lower limits of normal. The basal to mid septum is hypokinetic. 3.Estimated left ventricular ejection fraction of 50%. 4.Aortic valve sclerosis with borderline stenosis. Electronically Signed By: Stanislav Catherine 04-Jul-2016 18:24:09 -0800 Patient Name: LAURY GUSMAN Study Date: 03-Jul-2016 [id number]
[2016-07-04] MEDS: ATORVASTATIN 10 MG TAB PO SCH (20:41)
[2016-07-04] MEDS: CITRIC ACID/NA CITRATE 30 ML CUP PO SCH (20:41)
[2016-07-04] MEDS ORDERED: LEVOFLOXACIN 500MG/D5W (PMX) 100 ML IVPB SCH ×2 (21:30→22:00)
[2016-07-04] MEDS: OSELTAMIVIR 75 MG CAP PO SCH (22:04)
[2016-07-05] VITALS (14 sets, daily range): BP systolic 121–159; BP diastolic 56–99; PULSE 63–77; RESP 18–20
[2016-07-05] MEDS: INSULIN ASPART [NOVOLOG] 3 ML PEN SC SCH ×6 (01:00→21:27)
[2016-07-05] MEDS: PANTOPRAZOLE 40 MG INJ IV SCH (05:25)
[2016-07-05 06:46] LABS: POTASSIUM 3.7 mmol/L (3.5-5.1)
[2016-07-05 06:48] LABS: INR 1.03; PROTIME 13.5 Sec (12.2-14.2); PT RATIO 1.1
[2016-07-05 06:49] LABS: CREATININE 2.18 mg/dl (0.44-1.00); PARTIAL THROMBOPLASTIN TIME 31.2 Sec (25.0-35.0)
[2016-07-05 06:50] LABS: CALCIUM 8.3 mg/dl (8.4-10.2)
[2016-07-05 06:53] LABS: BASOPHILS % 0.3 % (0.0-2.0); EOSINOPHILS # 0.1 10^3/ul (0.0-0.5); EOSINOPHILS % 2.8 % (0.0-7.0); HEMATOCRIT 32.4 % (37.0-47.0); HEMOGLOBIN 11.1 g/dl (12.0-16.0); LYMPHOCYTES # 0.7 10^3/ul (0.8-2.9); MEAN CORPUSCULAR HEMOGLOBIN 28.8 pg (29.0-33.0); MEAN CORPUSCULAR HGB CONC 34.3 g/dl (32.0-37.0); MEAN PLATELET VOLUME 8.1 fl (7.4-10.4); MONOCYTE # 0.7 10^3/ul (0.3-0.9); MONOCYTES % 17.4 % (0.0-11.0); NEUTROPHIL # 2.4 10^3/ul (1.6-7.5); NEUTROPHILS % 61.5 % (39.0-77.0); PLATELET COUNT 149 10^3/UL (140-440); RED BLOOD COUNT 3.86 10^6/ul (4.20-5.40); RED CELL DISTRIBUTION WIDTH 19.9 % (11.5-14.5); UNCORRECTED WBC 3.9 10^3/ul (4.8-10.8); WHITE BLOOD COUNT 3.9 10^3/ul (4.8-10.8)
[2016-07-05 07:16] LABS: CONDITION 1; LH ANALYZER COMMENTS 1
[2016-07-05] MEDS: ARIPIPRAZOLE 2 MG TAB PO SCH (08:17)
[2016-07-05] MEDS: CLOPIDOGREL 75 MG TAB PO SCH (08:17)
[2016-07-05] MEDS: ASPIRIN (EC) 81 MG TAB PO SCH (08:17)
[2016-07-05] MEDS: OSELTAMIVIR 75 MG CAP PO SCH ×2 (08:17→21:24)
[2016-07-05] MEDS: BENAZEPRIL 5 MG TAB PO SCH ×2 (08:17→21:24)
[2016-07-05] MEDS: SPIRONOLACTONE 25 MG TAB PO SCH (08:17)
[2016-07-05] MEDS: LORATADINE 10 MG TAB PO SCH (08:18)
[2016-07-05] MEDS: CITRIC ACID/NA CITRATE 30 ML CUP PO SCH ×2 (08:18→21:23)
[2016-07-05] MEDS: CARBIDOPA/LEVODOPA (25/100) TAB PO SCH (08:18)
[2016-07-05] MEDS: SERTRALINE 50 MG TAB PO SCH (08:18)
[2016-07-05] MEDS: FLUTICASONE 0.05% 16 GM NAS SPRAY NASAL SCH ×2 (08:18→21:23)
[2016-07-05] MEDS: MEGESTROL (40 MG/ML) 10ML CUP PO SCH (11:30)
[2016-07-05] MEDS: HYDROCODONE/APAP (5/325) TAB PO PRN ×2 (11:46→17:16)
--- NOTE | 2016-07-05 14:02 | PN ---
Date/Time of Note Date/Time of Note LATE ENTRY DATE: 07/04/16 Assessment/Plan VTE Prophylaxis VTE Prophylaxis Intervention: SCD's Lines/Catheters IV Catheter Type (from Nrs): Peripheral IV Urinary Cath still in place: Yes Reason Cath still needed: other (indicate) (monitor I&O) Assessment/Plan Chief Complaint/Hosp Course Assessment and plan 1. Right hip fracture. C. Continue with analgesics as needed. Tentative plan for surgical intervention 2. 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 Patient does follow-up with her physician Dr. Valenzuela as outpatient for this issue. She is status post radiation therapy reportedly 3 weeks ago. Patient follow-up with outpatient oncologist 3. Renal insufficiency. C 13 Catapult Operator following. cont with recs 4. Hyperkalemia. Improved. Will provide with kayexalate as needed 5. Anemia likely of chronic disease. STable. Transfuse PRBC as needed 6. History of CAD with previous CABG. We'll resume patient's antiplatelet therapy 7. Essential hypertension. Tinea on antihypertensives and adjust as needed 8. History of dyslipidemia. Follow-up on fasting lipid panel. 9. Reported history of diabetes. A1c: 5.9. will monitor Disposition and plan: Patient is moderate risk for surgical intervention but the benefits of surgery make it reasonable to proceed. Tentative plan for orthopedic intervention. We'll follow-up. Discussed plan of care with Dr. Gross Problems: Subjective 24 Hr Interval Summary Free Text/Dictation No specific complaint at this time. Appears comfortable Exam/Review of Systems Vital Signs Vitals Vital Signs Date Time Temp Pulse Resp B/P Pulse Ox O2 Delivery O2 Flow Rate FiO2 07/05/16 12:21 74 07/05/16 12:18 99.1 18 159/99 95 07/03/16 18:20 Room Air Intake and Output 07/04/16 07/04/16 07/05/16 14:59 22:59 06:59 Intake Total 660 ml 580 ml Output Total 600 ml Balance 60 ml 580 ml Exam General: No acute signs or symptoms of distress Eyes: pupils equal round, Anicteric sclera Neck: Supple nontender, no JVD Cardiac: S1, S2 auscultated, regular rhythm and rate Pulmonary: No coarse rhonchi or breathing auscultated GI: Abdomen soft nontender nondistended, bowel sounds active Extremities: Pain on palpation of bilateral lower extremity Skin: Clean dry and intact Neurologic: Alert to person place and time and situation Results Result Diagram: 07/05/16 0500 07/05/16 0500 Results 24 hrs Laboratory Tests Test 07/04/16 16:35 07/04/16 17:20 07/04/16 20:39 07/05/16 03:22 Bedside Glucose 155 148 127 Basophils # 0.0 Basophils % 0.2 Blood Morphology Comment Eosinophils # 0.1 Eosinophils % 2.9 Hematocrit 32.7 #L Hemoglobin 11.2 #L Lymphocytes # 0.6 L Lymphocytes % 15.2 Mean Corpuscular Hemoglobin 29.0 Mean Corpuscular Hemoglobin Concent 34.2 Mean Corpuscular Volume 84.8 Mean Platelet Volume 7.9 Monocytes # 0.6 Monocytes % 13.8 H Neutrophils # 2.8 Neutrophils % 67.9 Nucleated Red Blood Cells # 0.0 Nucleated Red Blood Cells % 0.0 Platelet Count 160 Red Blood Count 3.86 #L Red Cell Distribution Width 20.2 #H White Blood Count 4.2 L Test 07/05/16 05:00 07/05/16 05:36 07/05/16 07:34 07/05/16 11:36 Activated Partial Thromboplast Time 31.2 Anion Gap 21 H Basophils # 0.0 Basophils % 0.3 Blood Morphology Comment Blood Urea Nitrogen 34 H Calcium Level 8.3 L Carbon Dioxide Level 18 L Chloride Level 106 Creatinine 2.18 H Eosinophils # 0.1 Eosinophils % 2.8 Glucose Level 117 Hematocrit 32.4 L Hemoglobin 11.1 L INR International Normalized Ratio 1.03 Lymphocytes # 0.7 L Lymphocytes % 18.0 Mean Corpuscular Hemoglobin 28.8 L Mean Corpuscular Hemoglobin Concent 34.3 Mean Corpuscular Volume 84.0 Mean Platelet Volume 8.1 Monocytes # 0.7 Monocytes % 17.4 H Neutrophils # 2.4 Neutrophils % 61.5 Nucleated Red Blood Cells # 0.0 Nucleated Red Blood Cells % 0.0 Platelet Count 149 Potassium Level 3.7 Prothrombin Time 13.5 Prothrombin Time Ratio 1.1 Red Blood Count 3.86 L Red Cell Distribution Width 19.9 H Sodium Level 141 White Blood Count 3.9 L Bedside Glucose 120 116 145 Medications Medications Current Medications Ondansetron HCl (Zofran Inj) 4 mg Q6H PRN IV NAUSEA AND/OR VOMITING; Start at 12:00 Acetaminophen (Tylenol Tab) 650 mg Q6H PRN PO PAIN LEVEL 1-3 OR FEVER Last administered on 07/04/16 20:40; Admin Dose 650 MG; Start 07/03/16 at 12:00 Acetaminophen (Tylenol Supp) 650 mg Q6H PRN [place] PAIN LEVEL 1-3 OR FEVER; Start 07/03/16 at 12:00 Acetaminophen/ Hydrocodone Bitart ([place] (5/325)) 1 tab Q6H PRN PO MODERATE PAIN LEVEL 4-6; Start 07/03/16 at 12:00 Acetaminophen/ Hydrocodone Bitart ([place] (5/325)) 2 tab Q6H PRN PO SEVERE PAIN LEVEL 7-10 Last administered on 07/05/16 11:46; Admin Dose 2 TAB; Start at 12:00 Morphine Sulfate (morphine) 2 mg Q4H PRN IV SEVERE PAIN LEVEL 7-10 Last administered on 07/03/16 21:31; Admin Dose 2 MG; Start 07/03/16 at 12:00 Docusate Sodium (Colace) 100 mg Q12H PRN PO CONSTIPATION; Start 07/03/16 at 12: 00 Magnesium Hydroxide (Milk Of Mag) 30 ml DAILY PRN PO CONSTIPATION; Start at 12:00 Bisacodyl (Dulcolax Supp) 10 mg DAILY PRN [place] CONSTIPATION; Start 07/03/16 at 12 :00 Pantoprazole (Protonix Iv) 40 mg DAILY@06 IV Last administered on 07/05/16 05: 25; Admin Dose 40 MG; Start 07/03/16 at 13:00 Hydralazine HCl (Apresoline) 10 mg Q4 PRN IV sbp>160; Start 07/03/16 at 12:00 Aripiprazole (Abilify) 2 mg DAILY PO Last administered on 07/05/16 08:17; Admin Dose 2 MG; Start 07/04/16 at 09:00 Aspirin (Halfprin) 81 mg DAILY PO Last administered on 07/05/16 08:17; Admin Dose 81 MG; Start 07/04/16 at 09:00 Benazepril HCl (Lotensin) 5 mg BID PO Last administered on 07/05/16 08:17; Admin Dose 5 MG; Start 07/03/16 at 21:00 Carbidopa/Levodopa (Sinemet (25/ 100)) 1 tab DAILY PO Last administered on 07/05 08:18; Admin Dose 1 TAB; Start 07/04/16 at 09:00 Carvedilol (Coreg) 12.5 mg BID PO Last administered on 07/05/16 08:16; Admin Dose 12.5 MG; Start 07/03/16 at 21:00 Clopidogrel Bisulfate (plaVIX) 75 mg DAILY PO Last administered on 07/05/16 08 :17; Admin Dose 75 MG; Start 07/04/16 at 09:00 Fluticasone Propionate (Flonase 0.05% Nasal) 1 spray BID NASAL Last administered on 07/04/16 23:56; Admin Dose 1 SPRAY; Start 07/03/16 at 21:00 Loratadine (Claritin) 10 mg DAILY PO Last administered on 07/05/16 08:18; Admin Dose 10 MG; Start 07/04/16 at 09:00 Meclizine HCl (Antivert) 25 mg Q12H PRN PO DIZZINESS; Start 07/03/16 at 14:30 Sertraline HCl (Zoloft) 50 mg DAILY PO Last administered on 07/05/16 08:18; Admin Dose 50 MG; Start 07/04/16 at 09:00 Spironolactone (Aldactone) 25 mg DAILY PO Last administered on 07/05/16 08:17 ; Admin Dose 25 MG; Start 07/04/16 at 09:00 Atorvastatin Calcium (Lipitor) 10 mg QHS PO Last administered on 07/04/16 20: 41; Admin Dose 10 MG; Start 07/03/16 at 21:00 Insulin Aspart NOVOLOG *MILD* ALGORI... Q4 SC Last administered on 07/04/16 20 :50; Admin Dose 1 UNIT; Start 07/03/16 at 17:00 Sodium Bicarbonate/ Dextrose (Na Bicarb/D5W) 1,000 ml @ 60 mls/hr [id number] IV Last administered on 07/04/16 12:35; Admin Dose 60 MLS/HR; Start 07/03/16 at 14 :30 Miscellaneous Information 1 ea NOTE XX ; Start 07/03/16 at 15:00 Glucose (Glutose) 15 gm Q15M PRN PO DECREASED GLUCOSE; Start 07/03/16 at 15:00 Glucose (Glutose) 22.5 gm Q15M PRN PO DECREASED GLUCOSE; Start 07/03/16 at 15: 00 Dextrose (D50w Syringe) 25 ml Q15M PRN IV DECREASED GLUCOSE; Start 07/03/16 at 15:00 Dextrose (D50w Syringe) 50 ml Q15M PRN IV DECREASED GLUCOSE; Start 07/03/16 at 15:00 Glucagon (Glucagen) 1 mg Q15M PRN IM DECREASED GLUCOSE; Start 07/03/16 at 15:00 Glucose (Glutose) 15 gm Q15M PRN BUCCAL DECREASED GLUCOSE; Start 07/03/16 at 15 :00 Citric Acid/ Sodium Citrate (Bicitra) 30 ml BID PO Last administered on 08:18; Admin Dose 30 ML; Start 07/04/16 at 21:00 Oseltamivir Phosphate 75 mg 75 mg BID PO Last administered on 07/05/16 08:17; Admin Dose 75 MG; Start 07/04/16 at 21:30 Levofloxacin/ Dextrose (Levaquin 250 Mg/ D5W 50 ml (Pmx)) 50 ml @ 50 mls/hr Q48H IVPB ; Start 07/06/16 at 22:00 JUNI NUNEZ Jul 05, 2016 14:01 JUNI NUNEZ Jul 05, 2016 14:01
--- NOTE | 2016-07-05 14:05 | PN ---
Date/Time of Note Date/Time of Note DATE: 07/05/16 TIME: 14:02 Assessment/Plan VTE Prophylaxis VTE Prophylaxis Intervention: heparin, SCD's Lines/Catheters IV Catheter Type (from Nrs): Peripheral IV Urinary Cath still in place: Yes Reason Cath still needed: other (indicate) (monitor I&O) Assessment/Plan Chief Complaint/Hosp Course Assessment and plan 1. Right hip fracture. . Orthopedic surgeon following. Continue with analgesics as needed. Tentative plan for surgical intervention 2. 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 Patient does follow-up with her physician Dr. Valenzuela as outpatient for this issue. She is status post radiation therapy reportedly 3 weeks ago. Patient follow-up with outpatient oncologist 3. Renal insufficiency. Procurement Forester following. cont with recs 4. Hyperkalemia. Improved. Will provide with kayexalate as needed 5. Anemia likely of chronic disease. STable. Transfuse PRBC as needed 6. History of CAD with previous CABG. We'll resume patient's antiplatelet therapy 7. Essential hypertension. Tinea on antihypertensives and adjust as needed 8. History of dyslipidemia. Follow-up on fasting lipid panel. 9. Reported history of diabetes. A1c: 5.9. will monitor 10. Influenza A positive. Continue on Tamiflu 11. UTI with gram-negative bacteria. Follow up on final culture. Continue on Levaquin for now Disposition and plan: Continue with ABX. Follow-up with orthopedic surgeon for tentative right hip surgery. Continue inpatient monitoring Discussed plan of care with Dr. Gross Problems: Subjective 24 Hr Interval Summary Free Text/Dictation no s/s of distress Exam/Review of Systems Vital Signs Vitals Vital Signs Date Time Temp Pulse Resp B/P Pulse Ox O2 Delivery O2 Flow Rate FiO2 07/05/16 12:21 74 07/05/16 12:18 99.1 18 159/99 95 07/03/16 18:20 Room Air Intake and Output 07/04/16 07/04/16 07/05/16 14:59 22:59 06:59 Intake Total 660 ml 580 ml Output Total 600 ml Balance 60 ml 580 ml Exam General: No acute signs or symptoms of distress Eyes: pupils equal round, Anicteric sclera Neck: Supple nontender, no JVD Cardiac: S1, S2 auscultated, regular rhythm and rate Pulmonary: No coarse rhonchi or breathing auscultated GI: Abdomen soft nontender nondistended, bowel sounds active Extremities: Pain on palpation of bilateral lower extremity Skin: Clean dry and intact Neurologic: Alert to person place and time and situation Results Result Diagram: 07/05/16 0500 07/05/16 0500 Results 24 hrs Laboratory Tests Test 07/04/16 16:35 07/04/16 17:20 07/04/16 20:39 07/05/16 03:22 Bedside Glucose 155 148 127 Basophils # 0.0 Basophils % 0.2 Blood Morphology Comment Eosinophils # 0.1 Eosinophils % 2.9 Hematocrit 32.7 #L Hemoglobin 11.2 #L Lymphocytes # 0.6 L Lymphocytes % 15.2 Mean Corpuscular Hemoglobin 29.0 Mean Corpuscular Hemoglobin Concent 34.2 Mean Corpuscular Volume 84.8 Mean Platelet Volume 7.9 Monocytes # 0.6 Monocytes % 13.8 H Neutrophils # 2.8 Neutrophils % 67.9 Nucleated Red Blood Cells # 0.0 Nucleated Red Blood Cells % 0.0 Platelet Count 160 Red Blood Count 3.86 #L Red Cell Distribution Width 20.2 #H White Blood Count 4.2 L Test 07/05/16 05:00 07/05/16 05:36 07/05/16 07:34 07/05/16 11:36 Activated Partial Thromboplast Time 31.2 Anion Gap 21 H Basophils # 0.0 Basophils % 0.3 Blood Morphology Comment Blood Urea Nitrogen 34 H Calcium Level 8.3 L Carbon Dioxide Level 18 L Chloride Level 106 Creatinine 2.18 H Eosinophils # 0.1 Eosinophils % 2.8 Glucose Level 117 Hematocrit 32.4 L Hemoglobin 11.1 L INR International Normalized Ratio 1.03 Lymphocytes # 0.7 L Lymphocytes % 18.0 Mean Corpuscular Hemoglobin 28.8 L Mean Corpuscular Hemoglobin Concent 34.3 Mean Corpuscular Volume 84.0 Mean Platelet Volume 8.1 Monocytes # 0.7 Monocytes % 17.4 H Neutrophils # 2.4 Neutrophils % 61.5 Nucleated Red Blood Cells # 0.0 Nucleated Red Blood Cells % 0.0 Platelet Count 149 Potassium Level 3.7 Prothrombin Time 13.5 Prothrombin Time Ratio 1.1 Red Blood Count 3.86 L Red Cell Distribution Width 19.9 H Sodium Level 141 White Blood Count 3.9 L Bedside Glucose 120 116 145 Medications Medications Current Medications Ondansetron HCl (Zofran Inj) 4 mg Q6H PRN IV NAUSEA AND/OR VOMITING; Start at 12:00 Acetaminophen (Tylenol Tab) 650 mg Q6H PRN PO PAIN LEVEL 1-3 OR FEVER Last administered on 07/04/16 20:40; Admin Dose 650 MG; Start 07/03/16 at 12:00 Acetaminophen (Tylenol Supp) 650 mg Q6H PRN LA PAIN LEVEL 1-3 OR FEVER; Start 07/03/16 at 12:00 Acetaminophen/ Hydrocodone Bitart ([place] (5/325)) 1 tab Q6H PRN PO MODERATE PAIN LEVEL 4-6; Start 07/03/16 at 12:00 Acetaminophen/ Hydrocodone Bitart ([place] (5/325)) 2 tab Q6H PRN PO SEVERE PAIN LEVEL 7-10 Last administered on 07/05/16 11:46; Admin Dose 2 TAB; Start at 12:00 Morphine Sulfate (morphine) 2 mg Q4H PRN IV SEVERE PAIN LEVEL 7-10 Last administered on 07/03/16 21:31; Admin Dose 2 MG; Start 07/03/16 at 12:00 Docusate Sodium (Colace) 100 mg Q12H PRN PO CONSTIPATION; Start 07/03/16 at 12: 00 Magnesium Hydroxide (Milk Of Mag) 30 ml DAILY PRN PO CONSTIPATION; Start at 12:00 Bisacodyl (Dulcolax Supp) 10 mg DAILY PRN LA CONSTIPATION; Start 07/03/16 at 12 :00 Pantoprazole (Protonix Iv) 40 mg DAILY@06 IV Last administered on 07/05/16 05: 25; Admin Dose 40 MG; Start 07/03/16 at 13:00 Hydralazine HCl (Apresoline) 10 mg Q4 PRN IV sbp>160; Start 07/03/16 at 12:00 Aripiprazole (Abilify) 2 mg DAILY PO Last administered on 07/05/16 08:17; Admin Dose 2 MG; Start 07/04/16 at 09:00 Aspirin (Halfprin) 81 mg DAILY PO Last administered on 07/05/16 08:17; Admin Dose 81 MG; Start 07/04/16 at 09:00 Benazepril HCl (Lotensin) 5 mg BID PO Last administered on 07/05/16 08:17; Admin Dose 5 MG; Start 07/03/16 at 21:00 Carbidopa/Levodopa (Sinemet (25/ 100)) 1 tab DAILY PO Last administered on 07/05 08:18; Admin Dose 1 TAB; Start 07/04/16 at 09:00 Carvedilol (Coreg) 12.5 mg BID PO Last administered on 07/05/16 08:16; Admin Dose 12.5 MG; Start 07/03/16 at 21:00 Clopidogrel Bisulfate (plaVIX) 75 mg DAILY PO Last administered on 07/05/16 08 :17; Admin Dose 75 MG; Start 07/04/16 at 09:00 Fluticasone Propionate (Flonase 0.05% Nasal) 1 spray BID NASAL Last administered on 07/04/16 23:56; Admin Dose 1 SPRAY; Start 07/03/16 at 21:00 Loratadine (Claritin) 10 mg DAILY PO Last administered on 07/05/16 08:18; Admin Dose 10 MG; Start 07/04/16 at 09:00 Meclizine HCl (Antivert) 25 mg Q12H PRN PO DIZZINESS; Start 07/03/16 at 14:30 Sertraline HCl (Zoloft) 50 mg DAILY PO Last administered on 07/05/16 08:18; Admin Dose 50 MG; Start 07/04/16 at 09:00 Spironolactone (Aldactone) 25 mg DAILY PO Last administered on 07/05/16 08:17 ; Admin Dose 25 MG; Start 07/04/16 at 09:00 Atorvastatin Calcium (Lipitor) 10 mg QHS PO Last administered on 07/04/16 20: 41; Admin Dose 10 MG; Start 07/03/16 at 21:00 Insulin Aspart NOVOLOG *MILD* ALGORI... Q4 SC Last administered on 07/04/16 20 :50; Admin Dose 1 UNIT; Start 07/03/16 at 17:00 Sodium Bicarbonate/ Dextrose (Na Bicarb/D5W) 1,000 ml @ 60 mls/hr [id number] IV Last administered on 07/04/16 12:35; Admin Dose 60 MLS/HR; Start 07/03/16 at 14 :30 Miscellaneous Information 1 ea NOTE XX ; Start 07/03/16 at 15:00 Glucose (Glutose) 15 gm Q15M PRN PO DECREASED GLUCOSE; Start 07/03/16 at 15:00 Glucose (Glutose) 22.5 gm Q15M PRN PO DECREASED GLUCOSE; Start 07/03/16 at 15: 00 Dextrose (D50w Syringe) 25 ml Q15M PRN IV DECREASED GLUCOSE; Start 07/03/16 at 15:00 Dextrose (D50w Syringe) 50 ml Q15M PRN IV DECREASED GLUCOSE; Start 07/03/16 at 15:00 Glucagon (Glucagen) 1 mg Q15M PRN IM DECREASED GLUCOSE; Start 07/03/16 at 15:00 Glucose (Glutose) 15 gm Q15M PRN BUCCAL DECREASED GLUCOSE; Start 07/03/16 at 15 :00 Citric Acid/ Sodium Citrate (Bicitra) 30 ml BID PO Last administered on 08:18; Admin Dose 30 ML; Start 07/04/16 at 21:00 Oseltamivir Phosphate 75 mg 75 mg BID PO Last administered on 07/05/16 08:17; Admin Dose 75 MG; Start 07/04/16 at 21:30 Levofloxacin/ Dextrose (Levaquin 250 Mg/ D5W 50 ml (Pmx)) 50 ml @ 50 mls/hr Q48H IVPB ; Start 07/06/16 at 22:00 JUNI NUNEZ Jul 05, 2016 14:04
--- NOTE | 2016-07-05 16:52 | CONS ---
Date/Time of Note Date/Time of Note DATE: 07/05/16 TIME: 16:51 Assessment/Plan Assessment/Plan Chief Complaint/Hosp Course IMPRESSION: 1. Patient has [id number] kidney disease, acute renal failure due to prerenal azotemia. 2. Patient has underlying chronic kidney disease, possibly hypertensive nephrosclerosis, and possible diabetic nephropathy. 3. Hyperkalemia, worsened by aldosterone antagonist. 4. Anemia of possibly chronic kidney disease. 5. Metabolic acidosis. better 6. The patient also is status post fall with right hip fracture. 7. Coronary artery disease with coronary artery bypass graft. 8. History of hysterectomy. 9. History of breast cancer, surgery on treatment. 10. Underlying chronic tubular interstitial nephritis. 11. proteinuria. plan ck bmp bicitra Problems: Consultation Date/Type/Reason Admit Date/Time Jul 03, 2016 at 11:46 Initial Consult Date 07/03/16 Type of Consultation: renal Referring Provider: JUNI NUNEZ 24 HR Interval Summary Constitutional: no complaints, No diaphoresis, No disoriented Exam/Review of Systems Vital Signs Vitals Vital Signs Date Time Temp Pulse Resp B/P Pulse Ox O2 Delivery O2 Flow Rate FiO2 07/05/16 16:22 63 07/05/16 15:52 98.4 18 132/63 96 07/03/16 18:20 Room Air Intake and Output 07/04/16 07/04/16 07/05/16 15:00 23:00 07:00 Intake Total 760 ml 480 ml Output Total 600 ml Balance 160 ml 480 ml Exam Respiratory: diminished breath sounds Cardiovascular: regular rate and rhythm Gastrointestinal: soft Genitourinary - Female: nl adnexae Extremities: edema (less) Results Result Diagram: 07/05/16 0500 07/05/16 0500 Results 24 hrs Laboratory Tests Test 07/04/16 17:20 07/04/16 20:39 07/05/16 03:22 07/05/16 05:00 Basophils # 0.0 0.0 Basophils % 0.2 0.3 Blood Morphology Comment Eosinophils # 0.1 0.1 Eosinophils % 2.9 2.8 Hematocrit 32.7 #L 32.4 L Hemoglobin 11.2 #L 11.1 L Lymphocytes # 0.6 L 0.7 L Lymphocytes % 15.2 18.0 Mean Corpuscular Hemoglobin 29.0 28.8 L Mean Corpuscular Hemoglobin Concent 34.2 34.3 Mean Corpuscular Volume 84.8 84.0 Mean Platelet Volume 7.9 8.1 Monocytes # 0.6 0.7 Monocytes % 13.8 H 17.4 H Neutrophils # 2.8 2.4 Neutrophils % 67.9 61.5 Nucleated Red Blood Cells # 0.0 0.0 Nucleated Red Blood Cells % 0.0 0.0 Platelet Count 160 149 Red Blood Count 3.86 #L 3.86 L Red Cell Distribution Width 20.2 #H 19.9 H White Blood Count 4.2 L 3.9 L Bedside Glucose 148 127 Activated Partial Thromboplast Time 31.2 Anion Gap 21 H Blood Urea Nitrogen 34 H Calcium Level 8.3 L Carbon Dioxide Level 18 L Chloride Level 106 Creatinine 2.18 H Glucose Level 117 INR International Normalized Ratio 1.03 Potassium Level 3.7 Prothrombin Time 13.5 Prothrombin Time Ratio 1.1 Sodium Level 141 Test 07/05/16 05:36 07/05/16 07:34 07/05/16 11:36 Bedside Glucose 120 116 145 Medications Medications Current Medications Ondansetron HCl (Zofran Inj) 4 mg Q6H PRN IV NAUSEA AND/OR VOMITING; Start at 12:00 Acetaminophen (Tylenol Tab) 650 mg Q6H PRN PO PAIN LEVEL 1-3 OR FEVER Last administered on 07/04/16 20:40; Admin Dose 650 MG; Start 07/03/16 at 12:00 Acetaminophen (Tylenol Supp) 650 mg Q6H PRN LA PAIN LEVEL 1-3 OR FEVER; Start 07/03/16 at 12:00 Acetaminophen/ Hydrocodone Bitart ([place] (5/325)) 1 tab Q6H PRN PO MODERATE PAIN LEVEL 4-6; Start 07/03/16 at 12:00 Acetaminophen/ Hydrocodone Bitart ([place] (5/325)) 2 tab Q6H PRN PO SEVERE PAIN LEVEL 7-10 Last administered on 07/05/16 11:46; Admin Dose 2 TAB; Start at 12:00 Morphine Sulfate (morphine) 2 mg Q4H PRN IV SEVERE PAIN LEVEL 7-10 Last administered on 07/03/16 21:31; Admin Dose 2 MG; Start 07/03/16 at 12:00 Docusate Sodium (Colace) 100 mg Q12H PRN PO CONSTIPATION; Start 07/03/16 at 12: 00 Magnesium Hydroxide (Milk Of Mag) 30 ml DAILY PRN PO CONSTIPATION; Start at 12:00 Bisacodyl (Dulcolax Supp) 10 mg DAILY PRN LA CONSTIPATION; Start 07/03/16 at 12 :00 Pantoprazole (Protonix Iv) 40 mg DAILY@06 IV Last administered on 07/05/16 05: 25; Admin Dose 40 MG; Start 07/03/16 at 13:00 Hydralazine HCl (Apresoline) 10 mg Q4 PRN IV sbp>160; Start 07/03/16 at 12:00 Aripiprazole (Abilify) 2 mg DAILY PO Last administered on 07/05/16 08:17; Admin Dose 2 MG; Start 07/04/16 at 09:00 Aspirin (Halfprin) 81 mg DAILY PO Last administered on 07/05/16 08:17; Admin Dose 81 MG; Start 07/04/16 at 09:00 Benazepril HCl (Lotensin) 5 mg BID PO Last administered on 07/05/16 08:17; Admin Dose 5 MG; Start 07/03/16 at 21:00 Carbidopa/Levodopa (Sinemet (25/ 100)) 1 tab DAILY PO Last administered on 07/05 08:18; Admin Dose 1 TAB; Start 07/04/16 at 09:00 Carvedilol (Coreg) 12.5 mg BID PO Last administered on 07/05/16 08:16; Admin Dose 12.5 MG; Start 07/03/16 at 21:00 Clopidogrel Bisulfate (plaVIX) 75 mg DAILY PO Last administered on 07/05/16 08 :17; Admin Dose 75 MG; Start 07/04/16 at 09:00 Fluticasone Propionate (Flonase 0.05% Nasal) 1 spray BID NASAL Last administered on 07/04/16 23:56; Admin Dose 1 SPRAY; Start 07/03/16 at 21:00 Loratadine (Claritin) 10 mg DAILY PO Last administered on 07/05/16 08:18; Admin Dose 10 MG; Start 07/04/16 at 09:00 Meclizine HCl (Antivert) 25 mg Q12H PRN PO DIZZINESS; Start 07/03/16 at 14:30 Sertraline HCl (Zoloft) 50 mg DAILY PO Last administered on 07/05/16 08:18; Admin Dose 50 MG; Start 07/04/16 at 09:00 Spironolactone (Aldactone) 25 mg DAILY PO Last administered on 07/05/16 08:17 ; Admin Dose 25 MG; Start 07/04/16 at 09:00 Atorvastatin Calcium (Lipitor) 10 mg QHS PO Last administered on 07/04/16 20: 41; Admin Dose 10 MG; Start 07/03/16 at 21:00 Insulin Aspart NOVOLOG *MILD* ALGORI... Q4 SC Last administered on 07/04/16 20 :50; Admin Dose 1 UNIT; Start 07/03/16 at 17:00 Sodium Bicarbonate/ Dextrose (Na Bicarb/D5W) 1,000 ml @ 60 mls/hr [id number] IV Last administered on 07/04/16 12:35; Admin Dose 60 MLS/HR; Start 07/03/16 at 14 :30 Miscellaneous Information 1 ea NOTE XX ; Start 07/03/16 at 15:00 Glucose (Glutose) 15 gm Q15M PRN PO DECREASED GLUCOSE; Start 07/03/16 at 15:00 Glucose (Glutose) 22.5 gm Q15M PRN PO DECREASED GLUCOSE; Start 07/03/16 at 15: 00 Dextrose (D50w Syringe) 25 ml Q15M PRN IV DECREASED GLUCOSE; Start 07/03/16 at 15:00 Dextrose (D50w Syringe) 50 ml Q15M PRN IV DECREASED GLUCOSE; Start 07/03/16 at 15:00 Glucagon (Glucagen) 1 mg Q15M PRN IM DECREASED GLUCOSE; Start 07/03/16 at 15:00 Glucose (Glutose) 15 gm Q15M PRN BUCCAL DECREASED GLUCOSE; Start 07/03/16 at 15 :00 Citric Acid/ Sodium Citrate (Bicitra) 30 ml BID PO Last administered on 08:18; Admin Dose 30 ML; Start 07/04/16 at 21:00 Oseltamivir Phosphate 75 mg 75 mg BID PO Last administered on 07/05/16 08:17; Admin Dose 75 MG; Start 07/04/16 at 21:30 Levofloxacin/ Dextrose (Levaquin 250 Mg/ D5W 50 ml (Pmx)) 50 ml @ 50 mls/hr Q48H IVPB ; Start 07/06/16 at 22:00 Heparin Sodium (Porcine) (Heparin (5000 Units/0.5 ml)) 5,000 unit BID SC ; Start 07/05/16 at 21:00 PERRY ALVARES MD Jul 05, 2016 16:52
[2016-07-05] MEDS: ATORVASTATIN 10 MG TAB PO SCH (21:24)
[2016-07-05] MEDS: HEPARIN 5,000 UNIT/0.5 ML SYG SC SCH (21:26)
[2016-07-06] VITALS (11 sets, daily range): BP systolic 120–155; BP diastolic 67–70; PULSE 65–87; RESP 18–20
[2016-07-06] MEDS: INSULIN ASPART [NOVOLOG] 3 ML PEN SC SCH ×6 (01:00→21:00)
[2016-07-06] MEDS: SODIUM BICARBONATE (IV ADD) 100 MEQ in DEXTROSE 5% 900 ML IV SCH (05:31)
[2016-07-06] MEDS: PANTOPRAZOLE 40 MG INJ IV SCH (05:34)
[2016-07-06 07:08] LABS: BASOPHILS % 0.3 % (0.0-2.0); EOSINOPHILS # 0.1 10^3/ul (0.0-0.5); EOSINOPHILS % 2.5 % (0.0-7.0); HEMATOCRIT 33.8 % (37.0-47.0); HEMOGLOBIN 11.5 g/dl (12.0-16.0); LYMPHOCYTES % 22.8 % (15.0-51.0); MEAN CORPUSCULAR HEMOGLOBIN 28.9 pg (29.0-33.0); MEAN CORPUSCULAR HGB CONC 34.1 g/dl (32.0-37.0); MEAN CORPUSCULAR VOLUME 84.9 fl (82.0-101.0); MEAN PLATELET VOLUME 7.7 fl (7.4-10.4); MONOCYTE # 0.6 10^3/ul (0.3-0.9); MONOCYTES % 13.1 % (0.0-11.0); NEUTROPHIL # 2.8 10^3/ul (1.6-7.5); NEUTROPHILS % 61.3 % (39.0-77.0); PLATELET COUNT 148 10^3/UL (140-440); RED BLOOD COUNT 3.98 10^6/ul (4.20-5.40); RED CELL DISTRIBUTION WIDTH 20.8 % (11.5-14.5); UNCORRECTED WBC 4.5 10^3/ul (4.8-10.8); WHITE BLOOD COUNT 4.5 10^3/ul (4.8-10.8)
[2016-07-06 07:11] LABS: CONDITION 1; LH ANALYZER COMMENTS 1
[2016-07-06] MEDS: ARIPIPRAZOLE 2 MG TAB PO SCH (10:27)
[2016-07-06] MEDS: CARBIDOPA/LEVODOPA (25/100) TAB PO SCH (10:27)
[2016-07-06] MEDS: OSELTAMIVIR 75 MG CAP PO SCH (10:27)
[2016-07-06] MEDS: CLOPIDOGREL 75 MG TAB PO SCH (10:27)
[2016-07-06] MEDS: SERTRALINE 50 MG TAB PO SCH (10:27)
[2016-07-06] MEDS: BENAZEPRIL 5 MG TAB PO SCH ×2 (10:28→22:12)
[2016-07-06] MEDS: ASPIRIN (EC) 81 MG TAB PO SCH (10:28)
[2016-07-06] MEDS: LORATADINE 10 MG TAB PO SCH (10:28)
[2016-07-06] MEDS: CITRIC ACID/NA CITRATE 30 ML CUP PO SCH ×2 (10:28→22:11)
[2016-07-06] MEDS: SPIRONOLACTONE 25 MG TAB PO SCH (10:28)
[2016-07-06] MEDS: HEPARIN 5,000 UNIT/0.5 ML SYG SC SCH ×2 (10:30→21:00)
[2016-07-06] MEDS: FLUTICASONE 0.05% 16 GM NAS SPRAY NASAL SCH ×2 (10:40→21:00)
[2016-07-06] MEDS: MEGESTROL (40 MG/ML) 10ML CUP PO SCH (11:30)
[2016-07-06] MEDS: morphine 2 MG INJ IV PRN (11:46)
--- NOTE | 2016-07-06 15:45 | PN ---
Date/Time of Note Date/Time of Note DATE: 07/06/16 TIME: 15:36 Assessment/Plan VTE Prophylaxis VTE Prophylaxis Intervention: heparin Lines/Catheters IV [facility]ter Type (from [email or web address] Peripheral IV Urinary Cath still in place: Yes Reason Cath still needed: other (indicate) (monitor I&O) Assessment/Plan Chief Complaint/Hosp Course Assessment and plan 1. Right hip fracture. Orthopedic surgeon following. Continue with analgesics as needed. Tentative plan for surgical intervention 2. 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 Patient does follow-up with her physician Dr. Valenzuela as outpatient for this issue. She is status post radiation therapy reportedly 3 weeks ago. Patient follow-up with outpatient oncologist 3. Renal insufficiency. Field Associate following. cont with recs 4. Hyperkalemia. Improved. Will provide with kayexalate as needed 5. Anemia likely of chronic disease. STable. Transfuse PRBC as needed 6. History of CAD with previous CABG. We'll resume patient's antiplatelet therapy 7. Essential hypertension. continue on antihypertensives and adjust as needed 8. History of dyslipidemia. Follow-up on fasting lipid panel. 9. Reported history of diabetes. A1c: 5.9. will monitor 10. Influenza A positive. Continue on Tamiflu 11. UTI with gram-negative bacteria. Follow up on final culture. Continue on Levaquin for now Disposition and plan: Patient still with right hip fracture. Patient was initially planned for orthopedic intervention for right hip, however family wanted procedure cancelled. Family did request second orthopedic opinion. Dr. Byrd made aware. I did get a hold of patient's oncologist: Dr. Valenzuela, who did tell me the extent of patient's bone metastasis including left sacrum/clavicle/ cevical spine. I was told that patient's bone metastasis was diffuse. I did discuss case with Dr. Macedo (orthopedic surgeon) who recommended patient for ortho drilling fluids specialist. Will get case management involved. Will try to set patient up at [facility] for tertiary evaluation with Dr. Hawk Heaton. Discussed plan of care with Dr. Gill Problems: Subjective 24 Hr Interval Summary Free Text/Dictation resting at this time. no s/s of distress Exam/Review of Systems Vital Signs Vitals Vital Signs Date Time Temp Pulse Resp B/P Pulse Ox O2 Delivery O2 Flow Rate FiO2 07/06/16 15:27 97.7 84 20 146/70 94 07/03/16 18:20 Room Air Intake and Output 07/05/16 07/05/16 07/06/16 15:00 23:00 07:00 Intake Total 50 ml 240 ml 490 ml Output Total 500 ml 900 ml 1000 ml Balance -450 ml -660 ml -510 ml Exam General: No acute signs or symptoms of distress Eyes: pupils equal round, Anicteric sclera Neck: Supple nontender, no JVD Cardiac: S1, S2 auscultated, regular rhythm and rate Pulmonary: No coarse rhonchi or breathing auscultated GI: Abdomen soft nontender nondistended, bowel sounds active Extremities: Pain on palpation of bilateral lower extremity Skin: Clean dry and intact Neurologic: Alert to person place and time and situation Results Result Diagram: 07/06/16 0608 07/05/16 0500 Results 24 hrs Laboratory Tests Test 07/05/16 16:54 07/05/16 21:22 07/06/16 01:45 07/06/16 05:36 Bedside Glucose 134 171 110 129 Test 07/06/16 06:08 07/06/16 11:55 Basophils # 0.0 Basophils % 0.3 Blood Morphology Comment Eosinophils # 0.1 Eosinophils % 2.5 Hematocrit 33.8 L Hemoglobin 11.5 L Lymphocytes # 1.0 Lymphocytes % 22.8 Mean Corpuscular Hemoglobin 28.9 L Mean Corpuscular Hemoglobin Concent 34.1 Mean Corpuscular Volume 84.9 Mean Platelet Volume 7.7 Monocytes # 0.6 Monocytes % 13.1 H Neutrophils # 2.8 Neutrophils % 61.3 Nucleated Red Blood Cells # 0.0 Nucleated Red Blood Cells % 0.0 Platelet Count 148 Red Blood Count 3.98 L Red Cell Distribution Width 20.8 H White Blood Count 4.5 L Bedside Glucose 179 Medications Medications Current Medications Ondansetron HCl (Zofran Inj) 4 mg Q6H PRN IV NAUSEA AND/OR VOMITING Last administered on 07/06/16 11:46; Admin Dose 4 MG; Start 07/03/16 at 12:00 Acetaminophen (Tylenol Tab) 650 mg Q6H PRN PO PAIN LEVEL 1-3 OR FEVER Last administered on 07/04/16 20:40; Admin Dose 650 MG; Start 07/03/16 at 12:00 Acetaminophen (Tylenol Supp) [address] PAIN LEVEL 1-3 OR FEVER; Start 07/03/16 at 12:00 Acetaminophen/ Hydrocodone Bitart ([place] (5/325)) 1 tab Q6H PRN PO MODERATE PAIN LEVEL 4-6 Last administered on 07/06/16 01:51; Admin Dose 1 TAB; Start at 12:00 Acetaminophen/ Hydrocodone Bitart ([place] (5/325)) 2 tab Q6H PRN PO SEVERE PAIN LEVEL 7-10 Last administered on 07/05/16 17:16; Admin Dose 2 TAB; Start at 12:00 Morphine Sulfate (morphine) 2 mg Q4H PRN IV SEVERE PAIN LEVEL 7-10 Last administered on 07/06/16 11:46; Admin Dose 2 MG; Start 07/03/16 at 12:00 Docusate Sodium (Colace) 100 mg Q12H PRN PO CONSTIPATION; Start 07/03/16 at 12: 00 Magnesium Hydroxide (Milk Of Mag) 30 ml DAILY PRN PO CONSTIPATION; Start at 12:00 Bisacodyl (Dulcolax Supp) [address] CONSTIPATION; Start 07/03/16 at 12 :00 Pantoprazole (Protonix Iv) 40 mg DAILY@06 IV Last administered on 07/06/16 05: 34; Admin Dose 40 MG; Start 07/03/16 at 13:00 Hydralazine HCl (Apresoline) 10 mg Q4 PRN IV sbp>160; Start 07/03/16 at 12:00 Aripiprazole (Abilify) 2 mg DAILY PO Last administered on 07/06/16 10:27; Admin Dose 2 MG; Start 07/04/16 at 09:00 Aspirin (Halfprin) 81 mg DAILY PO Last administered on 07/06/16 10:28; Admin Dose 81 MG; Start 07/04/16 at 09:00 Benazepril HCl (Lotensin) 5 mg BID PO Last administered on 07/06/16 10:28; Admin Dose 5 MG; Start 07/03/16 at 21:00 Carbidopa/Levodopa (Sinemet (25/ 100)) 1 tab DAILY PO Last administered on 2/20 /17at 10:27; Admin Dose 1 TAB; Start 07/04/16 at 09:00 Carvedilol (Coreg) 12.5 mg BID PO Last administered on 07/06/16 10:28; Admin Dose 12.5 MG; Start 07/03/16 at 21:00 Clopidogrel Bisulfate (plaVIX) 75 mg DAILY PO Last administered on 07/06/16 10 :27; Admin Dose 75 MG; Start 07/04/16 at 09:00 Fluticasone Propionate (Flonase 0.05% Nasal) 1 spray BID NASAL Last administered on 07/06/16 10:40; Admin Dose 1 SPRAY; Start 07/03/16 at 21:00 Loratadine (Claritin) 10 mg DAILY PO Last administered on 07/06/16 10:28; Admin Dose 10 MG; Start 07/04/16 at 09:00 Meclizine HCl (Antivert) 25 mg Q12H PRN PO DIZZINESS; Start 07/03/16 at 14:30 Sertraline HCl (Zoloft) 50 mg DAILY PO Last administered on 07/06/16 10:27; Admin Dose 50 MG; Start 07/04/16 at 09:00 Spironolactone (Aldactone) 25 mg DAILY PO Last administered on 07/06/16 10:28 ; Admin Dose 25 MG; Start 07/04/16 at 09:00 Atorvastatin Calcium (Lipitor) 10 mg QHS PO Last administered on 07/05/16 21: 24; Admin Dose 10 MG; Start 07/03/16 at 21:00 Insulin Aspart NOVOLOG *MILD* ALGORI... Q4 SC Last administered on 07/06/16 12 :57; Admin Dose 1 UNIT; Start 07/03/16 at 17:00 Sodium Bicarbonate/ Dextrose (Na Bicarb/D5W) 1,000 ml @ 60 mls/hr [id number] IV Last administered on 07/06/16 05:31; Admin Dose 60 MLS/HR; Start 07/03/16 at 14 :30 Miscellaneous Information 1 ea NOTE XX ; Start 07/03/16 at 15:00 Glucose (Glutose) 15 gm Q15M PRN PO DECREASED GLUCOSE; Start 07/03/16 at 15:00 Glucose (Glutose) 22.5 gm Q15M PRN PO DECREASED GLUCOSE; Start 07/03/16 at 15: 00 Dextrose (D50w Syringe) 25 ml Q15M PRN IV DECREASED GLUCOSE; Start 07/03/16 at 15:00 Dextrose (D50w Syringe) 50 ml Q15M PRN IV DECREASED GLUCOSE; Start 07/03/16 at 15:00 Glucagon (Glucagen) 1 mg Q15M PRN IM DECREASED GLUCOSE; Start 07/03/16 at 15:00 Glucose (Glutose) 15 gm Q15M PRN BUCCAL DECREASED GLUCOSE; Start 07/03/16 at 15 :00 Citric Acid/ Sodium Citrate (Bicitra) 30 ml BID PO Last administered on 10:28; Admin Dose 30 ML; Start 07/04/16 at 21:00 Heparin Sodium (Porcine) (Heparin (5000 Units/0.5 ml)) 5,000 unit BID SC Last administered on 07/06/16 10:30; Admin Dose 5,000 UNIT; Start 07/05/16 at 21:00 Trimethoprim/ Sulfamethoxazole (Bactrim (Ds)) 1 tab DAILY PO ; Start 07/06/16 at 14:00 Oseltamivir Phosphate (Tamiflu) 30 mg DAILY PO ; Start 07/07/16 at 09:00; Stop 07/09/16 at 09:01 JUNI NUNEZ Jul 06, 2016 15:45
[2016-07-06] MEDS: TRIMETHOPRIM/SULFAMETHOX (DS) TAB PO SCH (16:35)
--- NOTE | 2016-07-06 17:13 | CONS ---
Date/Time of Note Date/Time of Note DATE: 07/06/16 TIME: 17:12 Assessment/Plan Assessment/Plan Chief Complaint/Hosp Course IMPRESSION: 1. Patient has laobl-kn-medovpd kidney disease, acute renal failure due to prerenal azotemia. 2. Patient has underlying chronic kidney disease, possibly hypertensive nephrosclerosis, and possible diabetic nephropathy. 3. Hyperkalemia, worsened by aldosterone antagonist. 4. Anemia of possibly chronic kidney disease. 5. Metabolic acidosis. better 6. The patient also is status post fall with right hip fracture. 7. Coronary artery disease with coronary artery bypass graft. 8. History of hysterectomy. 9. History of breast cancer, surgery on treatment. 10. Underlying chronic tubular interstitial nephritis. 11. proteinuria. plan ck bmp bicitra renal stable Problems: Consultation Date/Type/Reason Admit Date/Time Jul 03, 2016 at 11:46 Initial Consult Date 07/03/16 Type of Consultation: renal Referring Provider: JUNI NUNEZ 24 HR Interval Summary Constitutional: no complaints Exam/Review of Systems Vital Signs Vitals Vital Signs Date Time Temp Pulse Resp B/P Pulse Ox O2 Delivery O2 Flow Rate FiO2 07/06/16 15:27 97.7 84 20 146/70 94 07/03/16 18:20 Room Air Intake and Output 07/05/16 07/05/16 07/06/16 15:00 23:00 07:00 Intake Total 50 ml 240 ml 490 ml Output Total 500 ml 900 ml 1000 ml Balance -450 ml -660 ml -510 ml Exam Respiratory: clear to auscultation Cardiovascular: regular rate and rhythm Gastrointestinal: soft Musculoskeletal: nl extremities to inspection Results Result Diagram: 07/06/16 0608 07/05/16 0500 Results 24 hrs Laboratory Tests Test 07/05/16 21:22 07/06/16 01:45 07/06/16 05:36 07/06/16 06:08 Bedside Glucose 171 110 129 Basophils # 0.0 Basophils % 0.3 Blood Morphology Comment Eosinophils # 0.1 Eosinophils % 2.5 Hematocrit 33.8 L Hemoglobin 11.5 L Lymphocytes # 1.0 Lymphocytes % 22.8 Mean Corpuscular Hemoglobin 28.9 L Mean Corpuscular Hemoglobin Concent 34.1 Mean Corpuscular Volume 84.9 Mean Platelet Volume 7.7 Monocytes # 0.6 Monocytes % 13.1 H Neutrophils # 2.8 Neutrophils % 61.3 Nucleated Red Blood Cells # 0.0 Nucleated Red Blood Cells % 0.0 Platelet Count 148 Red Blood Count 3.98 L Red Cell Distribution Width 20.8 H White Blood Count 4.5 L Test 07/06/16 11:55 Bedside Glucose 179 Medications Medications Current Medications Ondansetron HCl (Zofran Inj) 4 mg Q6H PRN IV NAUSEA AND/OR VOMITING Last administered on 07/06/16 11:46; Admin Dose 4 MG; Start 07/03/16 at 12:00 Acetaminophen (Tylenol Tab) 650 mg Q6H PRN PO PAIN LEVEL 1-3 OR FEVER Last administered on 07/04/16 20:40; Admin Dose 650 MG; Start 07/03/16 at 12:00 Acetaminophen (Tylenol Supp) 650 mg Q6H PRN [place] PAIN LEVEL 1-3 OR FEVER; Start 07/03/16 at 12:00 Acetaminophen/ Hydrocodone Bitart ([place] (5/325)) 1 tab Q6H PRN PO MODERATE PAIN LEVEL 4-6 Last administered on 07/06/16 01:51; Admin Dose 1 TAB; Start at 12:00 Acetaminophen/ Hydrocodone Bitart ([place] (5/325)) 2 tab Q6H PRN PO SEVERE PAIN LEVEL 7-10 Last administered on 07/05/16 17:16; Admin Dose 2 TAB; Start at 12:00 Morphine Sulfate (morphine) 2 mg Q4H PRN IV SEVERE PAIN LEVEL 7-10 Last administered on 07/06/16 11:46; Admin Dose 2 MG; Start 07/03/16 at 12:00 Docusate Sodium (Colace) 100 mg Q12H PRN PO CONSTIPATION; Start 07/03/16 at 12: 00 Magnesium Hydroxide (Milk Of Mag) 30 ml DAILY PRN PO CONSTIPATION; Start at 12:00 Bisacodyl (Dulcolax Supp) 10 mg DAILY PRN [place] CONSTIPATION; Start 07/03/16 at 12 :00 Hydralazine HCl (Apresoline) 10 mg Q4 PRN IV sbp>160; Start 07/03/16 at 12:00 Aripiprazole (Abilify) 2 mg DAILY PO Last administered on 07/06/16 10:27; Admin Dose 2 MG; Start 07/04/16 at 09:00 Aspirin (Halfprin) 81 mg DAILY PO Last administered on 07/06/16 10:28; Admin Dose 81 MG; Start 07/04/16 at 09:00 Benazepril HCl (Lotensin) 5 mg BID PO Last administered on 07/06/16 10:28; Admin Dose 5 MG; Start 07/03/16 at 21:00 Carbidopa/Levodopa (Sinemet (25/ 100)) 1 tab DAILY PO Last administered on 07/06 10:27; Admin Dose 1 TAB; Start 07/04/16 at 09:00 Carvedilol (Coreg) 12.5 mg BID PO Last administered on 07/06/16 10:28; Admin Dose 12.5 MG; Start 07/03/16 at 21:00 Clopidogrel Bisulfate (plaVIX) 75 mg DAILY PO Last administered on 07/06/16 10 :27; Admin Dose 75 MG; Start 07/04/16 at 09:00 Fluticasone Propionate (Flonase 0.05% Nasal) 1 spray BID NASAL Last administered on 07/06/16 10:40; Admin Dose 1 SPRAY; Start 07/03/16 at 21:00 Loratadine (Claritin) 10 mg DAILY PO Last administered on 07/06/16 10:28; Admin Dose 10 MG; Start 07/04/16 at 09:00 Meclizine HCl (Antivert) 25 mg Q12H PRN PO DIZZINESS; Start 07/03/16 at 14:30 Sertraline HCl (Zoloft) 50 mg DAILY PO Last administered on 07/06/16 10:27; Admin Dose 50 MG; Start 07/04/16 at 09:00 Spironolactone (Aldactone) 25 mg DAILY PO Last administered on 07/06/16 10:28 ; Admin Dose 25 MG; Start 07/04/16 at 09:00 Atorvastatin Calcium (Lipitor) 10 mg QHS PO Last administered on 07/05/16 21: 24; Admin Dose 10 MG; Start 07/03/16 at 21:00 Insulin Aspart NOVOLOG *MILD* ALGORI... Q4 SC Last administered on 07/06/16 12 :57; Admin Dose 1 UNIT; Start 07/03/16 at 17:00 Sodium Bicarbonate/ Dextrose (Na Bicarb/D5W) 1,000 ml @ 60 mls/hr [id number] IV Last administered on 07/06/16 05:31; Admin Dose 60 MLS/HR; Start 07/03/16 at 14 :30 Miscellaneous Information 1 ea NOTE XX ; Start 07/03/16 at 15:00 Glucose (Glutose) 15 gm Q15M PRN PO DECREASED GLUCOSE; Start 07/03/16 at 15:00 Glucose (Glutose) 22.5 gm Q15M PRN PO DECREASED GLUCOSE; Start 07/03/16 at 15: 00 Dextrose (D50w Syringe) 25 ml Q15M PRN IV DECREASED GLUCOSE; Start 07/03/16 at 15:00 Dextrose (D50w Syringe) 50 ml Q15M PRN IV DECREASED GLUCOSE; Start 07/03/16 at 15:00 Glucagon (Glucagen) 1 mg Q15M PRN IM DECREASED GLUCOSE; Start 07/03/16 at 15:00 Glucose (Glutose) 15 gm Q15M PRN [place]CC[place] DECREASED GLUCOSE; Start 07/03/16 at 15 :00 Citric Acid/ Sodium Citrate (Bicitra) 30 ml BID PO Last administered on 10:28; Admin Dose 30 ML; Start 07/04/16 at 21:00 Heparin Sodium (Porcine) (Heparin (5000 Units/0.5 ml)) 5,000 unit BID SC Last administered on 07/06/16 10:30; Admin Dose 5,000 UNIT; Start 07/05/16 at 21:00 Trimethoprim/ Sulfamethoxazole (Bactrim (Ds)) 1 tab DAILY PO Last administered on 07/06/16 16:35; Admin Dose 1 TAB; Start 07/06/16 at 14:00 Oseltamivir Phosphate (Tamiflu) 30 mg DAILY PO ; Start 07/07/16 at 09:00; Stop 07/09/16 at 09:01 Pantoprazole (Protonix Tab) 40 mg DAILY@06 PO ; Start 07/07/16 at 06:00 PERRY ALVARES MD Jul 06, 2016 17:13
[2016-07-06] MEDS ORDERED: TRIMETHOPRIM/SULFAMETHOX (DS) TAB PO SCH (21:00)
[2016-07-06] MEDS ORDERED: LEVOFLOXACIN 250MG/D5W (PMX) 50 ML IVPB SCH (22:00)
[2016-07-06] MEDS: ATORVASTATIN 10 MG TAB PO SCH (22:11)
[2016-07-06] MEDS: ACETAMINOPHEN 325 MG TAB PO PRN (22:14)
[2016-07-07] VITALS (12 sets, daily range): BP systolic 116–143; BP diastolic 56–71; PULSE 74–87; RESP 17–20
[2016-07-07] MEDS: INSULIN ASPART [NOVOLOG] 3 ML PEN SC SCH ×5 (00:58→20:53)
[2016-07-07] MEDS: morphine 2 MG INJ IV PRN ×2 (01:02→23:09)
[2016-07-07] MEDS: SODIUM BICARBONATE (IV ADD) 100 MEQ in DEXTROSE 5% 900 ML IV SCH ×2 (01:11→09:00)
[2016-07-07] MEDS: PANTOPRAZOLE (EC) 40 MG TAB PO SCH (07:42)
[2016-07-07 07:52] LABS: POTASSIUM 3.3 mmol/L (3.5-5.1)
[2016-07-07 07:55] LABS: CREATININE 2.09 mg/dl (0.44-1.00)
[2016-07-07 08:01] LABS: BASOPHILS % 0.5 % (0.0-2.0); EOSINOPHILS # 0.1 10^3/ul (0.0-0.5); EOSINOPHILS % 3.4 % (0.0-7.0); HEMATOCRIT 33.4 % (37.0-47.0); HEMOGLOBIN 11.3 g/dl (12.0-16.0); LYMPHOCYTES % 25.5 % (15.0-51.0); MEAN CORPUSCULAR HEMOGLOBIN 28.6 pg (29.0-33.0); MEAN CORPUSCULAR HGB CONC 33.7 g/dl (32.0-37.0); MEAN CORPUSCULAR VOLUME 84.8 fl (82.0-101.0); MEAN PLATELET VOLUME 8.1 fl (7.4-10.4); MONOCYTE # 0.4 10^3/ul (0.3-0.9); NEUTROPHIL # 2.4 10^3/ul (1.6-7.5); NEUTROPHILS % 59.6 % (39.0-77.0); PLATELET COUNT 147 10^3/UL (140-440); RED BLOOD COUNT 3.93 10^6/ul (4.20-5.40); RED CELL DISTRIBUTION WIDTH 21.1 % (11.5-14.5)
[2016-07-07 08:03] LABS: CONDITION 1; LH ANALYZER COMMENTS 1
[2016-07-07] MEDS: FLUTICASONE 0.05% 16 GM NAS SPRAY NASAL SCH ×2 (09:22→20:55)
[2016-07-07] MEDS: CITRIC ACID/NA CITRATE 30 ML CUP PO SCH ×2 (09:23→20:27)
[2016-07-07] MEDS: CLOPIDOGREL 75 MG TAB PO SCH (09:23)
[2016-07-07] MEDS: LORATADINE 10 MG TAB PO SCH (09:23)
[2016-07-07] MEDS: ASPIRIN (EC) 81 MG TAB PO SCH (09:23)
[2016-07-07] MEDS: CARBIDOPA/LEVODOPA (25/100) TAB PO SCH (09:23)
[2016-07-07] MEDS: OSELTAMIVIR 30 MG CAP PO SCH (09:23)
[2016-07-07] MEDS: ARIPIPRAZOLE 2 MG TAB PO SCH (09:23)
[2016-07-07] MEDS: BENAZEPRIL 5 MG TAB PO SCH ×2 (09:24→20:47)
[2016-07-07] MEDS: HEPARIN 5,000 UNIT/0.5 ML SYG SC SCH ×2 (09:28→21:00)
[2016-07-07] MEDS: SERTRALINE 50 MG TAB PO SCH (09:29)
[2016-07-07] MEDS: TRIMETHOPRIM/SULFAMETHOX (DS) TAB PO SCH (09:29)
[2016-07-07] MEDS: SPIRONOLACTONE 25 MG TAB PO SCH (09:29)
[2016-07-07] MEDS ORDERED: ALPR0.25 PO (10:19)
[2016-07-07] MEDS ORDERED: AL HYDROX/MG HYDROX/SIMETH 30 ML CUP PO PRN (11:30)
[2016-07-07] MEDS: MEGESTROL (40 MG/ML) 10ML CUP PO SCH (11:35)
[2016-07-07] MEDS: ALPRAZOLAM 0.25 MG TAB PO SCH ×2 (11:37→20:25)
--- NOTE | 2016-07-07 12:09 | PN ---
Date/Time of Note Date/Time of Note DATE: 07/07/16 TIME: 12:05 Assessment/Plan VTE Prophylaxis VTE Prophylaxis Intervention: heparin Lines/Catheters IV [facility] Peripheral IV Urinary Cath still in place: Yes Reason Cath still needed: other (indicate) (pelvic fracture ) Assessment/Plan Assessment/Plan 1. Right hip fracture. Orthopedic surgeon following. Continue with analgesics as needed. Tentative plan for surgical intervention 2. 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 Patient does follow-up with her physician Dr. Valenzuela as outpatient for this issue. She is status post radiation therapy reportedly 3 weeks ago. Patient follow-up with outpatient oncologist 3. YOLETTE 2/2 prerenal azotemia 4. Hyperkalemia. Improved. Will provide with kayexalate as needed 5. Anemia likely of chronic disease. STable. Transfuse PRBC as needed 6. History of CAD with previous CABG. We'll resume patient's antiplatelet therapy 7. Essential hypertension. continue on antihypertensives and adjust as needed 8. History of dyslipidemia. Follow-up on fasting lipid panel. 9. Reported history of diabetes. A1c: 5.9. will monitor 10. Influenza A positive. Continue on Tamiflu 11. UTI with gram-negative bacteria. Follow up on final culture. Continue on Levaquin for now PT, OT, S/p Orthopedic Surgery consulation, Heparin for DVT prophyalxis BP stable Subjective 24 Hr Interval Summary Free Text/Dictation no acute events, Family declined for surgery Exam/Review of Systems Vital Signs Vitals Vital Signs Date Time Temp Pulse Resp B/P Pulse Ox O2 Delivery O2 Flow Rate FiO2 07/07/16 09:46 74 07/07/16 09:05 97.8 17 116/56 95 07/03/16 18:20 Room Air Intake and Output 07/06/16 07/06/16 07/07/16 15:00 23:00 07:00 Intake Total 360 ml Output Total 1100 ml Balance -740 ml Exam General: No acute signs or symptoms of distress Eyes: pupils equal round, Anicteric sclera Neck: Supple nontender, no JVD Cardiac: S1, S2 auscultated, regular rhythm and rate Pulmonary: No coarse rhonchi or breathing auscultated GI: Abdomen soft nontender nondistended, bowel sounds active Extremities: Pain on palpation of bilateral lower extremity Skin: Clean dry and intact Neurologic: Alert to person place and time and situation Results Result Diagram: 07/07/16 0654 07/07/16 0654 Results 24 hrs Laboratory Tests Test 07/06/16 18:10 07/06/16 22:19 07/07/16 00:56 07/07/16 06:54 Bedside Glucose 151 131 113 Anion Gap 22 H Basophils # 0.0 Basophils % 0.5 Blood Morphology Comment Blood Urea Nitrogen 26 H Calcium Level 7.0 L Carbon Dioxide Level 23 Chloride Level 101 Creatinine 2.09 H Eosinophils # 0.1 Eosinophils % 3.4 Glucose Level 123 Hematocrit 33.4 L Hemoglobin 11.3 L Lymphocytes # 1.0 Lymphocytes % 25.5 Mean Corpuscular Hemoglobin 28.6 L Mean Corpuscular Hemoglobin Concent 33.7 Mean Corpuscular Volume 84.8 Mean Platelet Volume 8.1 Monocytes # 0.4 Monocytes % 11.0 Neutrophils # 2.4 Neutrophils % 59.6 Nucleated Red Blood Cells # 0.0 Nucleated Red Blood Cells % 0.0 Platelet Count 147 Potassium Level 3.3 L Red Blood Count 3.93 L Red Cell Distribution Width 21.1 H Sodium Level 143 White Blood Count 4.0 L Test 07/07/16 07:48 07/07/16 09:55 07/07/16 11:27 Bedside Glucose 116 176 Lab Scanned Report REFERENCE LAB Medications Medications Current Medications Ondansetron HCl (Zofran Inj) 4 mg Q6H PRN IV NAUSEA AND/OR VOMITING Last administered on 07/06/16 11:46; Admin Dose 4 MG; Start 07/03/16 at 12:00 Acetaminophen (Tylenol Tab) 650 mg Q6H PRN PO PAIN LEVEL 1-3 OR FEVER Last administered on 07/06/16 22:14; Admin Dose 650 MG; Start 07/03/16 at 12:00 Acetaminophen (Tylenol Supp) 650 mg Q6H PRN [place] PAIN LEVEL 1-3 OR FEVER; Start 07/03/16 at 12:00 Acetaminophen/ Hydrocodone Bitart ([place] (5/325)) 1 tab Q6H PRN PO MODERATE PAIN LEVEL 4-6 Last administered on 07/06/16 01:51; Admin Dose 1 TAB; Start at 12:00 Acetaminophen/ Hydrocodone Bitart ([place] (5/325)) 2 tab Q6H PRN PO SEVERE PAIN LEVEL 7-10 Last administered on 07/05/16 17:16; Admin Dose 2 TAB; Start at 12:00 Morphine Sulfate (morphine) 2 mg Q4H PRN IV SEVERE PAIN LEVEL 7-10 Last administered on 07/07/16 01:02; Admin Dose 2 MG; Start 07/03/16 at 12:00 Docusate Sodium (Colace) 100 mg Q12H PRN PO CONSTIPATION; Start 07/03/16 at 12: 00 Magnesium Hydroxide (Milk Of Mag) 30 ml DAILY PRN PO CONSTIPATION; Start at 12:00 Bisacodyl (Dulcolax Supp) 10 mg DAILY PRN [place] CONSTIPATION; Start 07/03/16 at 12 :00 Hydralazine HCl (Apresoline) 10 mg Q4 PRN IV sbp>160; Start 07/03/16 at 12:00 Aripiprazole (Abilify) 2 mg DAILY PO Last administered on 07/07/16 09:23; Admin Dose 2 MG; Start 07/04/16 at 09:00 Aspirin (Halfprin) 81 mg DAILY PO Last administered on 07/07/16 09:23; Admin Dose 81 MG; Start 07/04/16 at 09:00 Benazepril HCl (Lotensin) 5 mg BID PO Last administered on 07/07/16 09:24; Admin Dose 5 MG; Start 07/03/16 at 21:00 Carbidopa/Levodopa (Sinemet (25/ 100)) 1 tab DAILY PO Last administered on 07/07 09:23; Admin Dose 1 TAB; Start 07/04/16 at 09:00 Carvedilol (Coreg) 12.5 mg BID PO Last administered on 07/07/16 09:24; Admin Dose 12.5 MG; Start 07/03/16 at 21:00 Clopidogrel Bisulfate (plaVIX) 75 mg DAILY PO Last administered on 07/07/16 09 :23; Admin Dose 75 MG; Start 07/04/16 at 09:00 Fluticasone Propionate (Flonase 0.05% Nasal) 1 spray BID NASAL Last administered on 07/07/16 09:22; Admin Dose 1 SPRAY; Start 07/03/16 at 21:00 Loratadine (Claritin) 10 mg DAILY PO Last administered on 07/07/16 09:23; Admin Dose 10 MG; Start 07/04/16 at 09:00 Meclizine HCl (Antivert) 25 mg Q12H PRN PO DIZZINESS; Start 07/03/16 at 14:30 Sertraline HCl (Zoloft) 50 mg DAILY PO Last administered on 07/07/16 09:29; Admin Dose 50 MG; Start 07/04/16 at 09:00 Spironolactone (Aldactone) 25 mg DAILY PO Last administered on 07/07/16 09:29 ; Admin Dose 25 MG; Start 07/04/16 at 09:00 Atorvastatin Calcium 10 mg 10 mg QHS PO Last administered on 07/06/16 22:11; Admin Dose 10 MG; Start 07/03/16 at 21:00 Sodium Bicarbonate/ Dextrose (Na Bicarb/D5W) 1,000 ml @ 60 mls/hr [id number] IV Last administered on 07/07/16 01:11; Admin Dose 60 MLS/HR; Start 07/03/16 at 14 :30 Miscellaneous Information 1 ea NOTE XX ; Start 07/03/16 at 15:00 Glucose (Glutose) 15 gm Q15M PRN PO DECREASED GLUCOSE; Start 07/03/16 at 15:00 Glucose (Glutose) 22.5 gm Q15M PRN PO DECREASED GLUCOSE; Start 07/03/16 at 15: 00 Dextrose (D50w Syringe) 25 ml Q15M PRN IV DECREASED GLUCOSE; Start 07/03/16 at 15:00 Dextrose (D50w Syringe) 50 ml Q15M PRN IV DECREASED GLUCOSE; Start 07/03/16 at 15:00 Glucagon (Glucagen) 1 mg Q15M PRN IM DECREASED GLUCOSE; Start 07/03/16 at 15:00 Glucose (Glutose) 15 gm Q15M PRN BUCCAL DECREASED GLUCOSE; Start 07/03/16 at 15 :00 Citric Acid/ Sodium Citrate (Bicitra) 30 ml BID PO Last administered on 09:23; Admin Dose 30 ML; Start 07/04/16 at 21:00 Heparin Sodium (Porcine) (Heparin (5000 Units/0.5 ml)) 5,000 unit BID SC Last administered on 2/21/17at 09:28; Admin Dose 5,000 UNIT; Start 07/05/16 at 21:00 Trimethoprim/ Sulfamethoxazole (Bactrim (Ds)) 1 tab DAILY PO Last administered on 07/07/16 09:29; Admin Dose 1 TAB; Start 07/06/16 at 14:00 Oseltamivir Phosphate (Tamiflu) 30 mg DAILY PO Last administered on 07/07/16 09:23; Admin Dose 30 MG; Start 07/07/16 at 09:00; Stop 07/09/16 at 09:01 Pantoprazole (Protonix Tab) 40 mg DAILY@06 PO Last administered on 07/07/16 07 :42; Admin Dose 40 MG; Start 07/07/16 at 06:00 Diagnostic Test (Pha) (Accucheck) 1 ea 02 XX ; Start 07/08/16 at 02:00 Alprazolam (Xanax) 0.25 mg BID PO Last administered on 07/07/16 11:37; Admin Dose 0.25 MG; Start 07/07/16 at 11:30 Al Hydrox/Mg Hydrox/Simethicone (Mag-Al Plus) 30 ml Q6H PRN PO GASTROINTESTINAL UPSET Last administered on 07/07/16 11:35; Admin Dose 30 ML; Start 07/07/16 at 11:30 MEHDI MISTRY MD Jul 07, 2016 12:09
[2016-07-07] MEDS: ATORVASTATIN 10 MG TAB PO SCH (20:24)
[2016-07-07] MEDS: ACETAMINOPHEN 325 MG TAB PO PRN (20:24)
--- NOTE | 2016-07-07 21:11 | CONS ---
Date/Time of Note Date/Time of Note DATE: 07/07/16 TIME: 21:10 Assessment/Plan Assessment/Plan Chief Complaint/Hosp Course IMPRESSION: 1. Patient has [id number] kidney disease, acute renal failure due to prerenal azotemia. 2. Patient has underlying chronic kidney disease, possibly hypertensive nephrosclerosis, and possible diabetic nephropathy. 3. Hyperkalemia, worsened by aldosterone antagonist. 4. Anemia of possibly chronic kidney disease. 5. Metabolic acidosis. better 6. The patient also is status post fall with right hip fracture. 7. Coronary artery disease with coronary artery bypass graft. 8. History of hysterectomy. 9. History of breast cancer, surgery on treatment. 10. Underlying chronic tubular interstitial nephritis. 11. proteinuria. plan ck bmp bicitra renal stable KCL Problems: Consultation Date/Type/Reason Admit Date/Time Jul 03, 2016 at 11:46 Initial Consult Date 07/03/16 Type of Consultation: renal Referring Provider: JUNI NUNEZ 24 HR Interval Summary Constitutional: no complaints Exam/Review of Systems Vital Signs Vitals Vital Signs Date Time Temp Pulse Resp B/P Pulse Ox O2 Delivery O2 Flow Rate FiO2 07/07/16 20:42 98.1 94 20 137/60 94 07/03/16 18:20 Room Air Intake and Output 07/06/16 07/06/16 07/07/16 15:00 23:00 07:00 Intake Total 360 ml Output Total 1100 ml Balance -740 ml Exam Respiratory: clear to auscultation Cardiovascular: regular rate and rhythm Gastrointestinal: soft Extremities: edema (TR) Results Result Diagram: 07/07/16 0654 07/07/16 0654 Results 24 hrs Laboratory Tests Test 07/06/16 22:19 07/07/16 00:56 07/07/16 06:54 07/07/16 07:48 Bedside Glucose 131 113 116 Anion Gap 22 H Basophils # 0.0 Basophils % 0.5 Blood Morphology Comment Blood Urea Nitrogen 26 H Calcium Level 7.0 L Carbon Dioxide Level 23 Chloride Level 101 Creatinine 2.09 H Eosinophils # 0.1 Eosinophils % 3.4 Glucose Level 123 Hematocrit 33.4 L Hemoglobin 11.3 L Lymphocytes # 1.0 Lymphocytes % 25.5 Mean Corpuscular Hemoglobin 28.6 L Mean Corpuscular Hemoglobin Concent 33.7 Mean Corpuscular Volume 84.8 Mean Platelet Volume 8.1 Monocytes # 0.4 Monocytes % 11.0 Neutrophils # 2.4 Neutrophils % 59.6 Nucleated Red Blood Cells # 0.0 Nucleated Red Blood Cells % 0.0 Platelet Count 147 Potassium Level 3.3 L Red Blood Count 3.93 L Red Cell Distribution Width 21.1 H Sodium Level 143 White Blood Count 4.0 L Test 07/07/16 09:55 07/07/16 11:27 07/07/16 16:52 07/07/16 20:50 Lab Scanned Report REFERENCE LAB Bedside Glucose 176 120 142 Medications Medications Current Medications Ondansetron HCl (Zofran Inj) 4 mg Q6H PRN IV NAUSEA AND/OR VOMITING Last administered on 07/06/16 11:46; Admin Dose 4 MG; Start 07/03/16 at 12:00 Acetaminophen (Tylenol Tab) 650 mg Q6H PRN PO PAIN LEVEL 1-3 OR FEVER Last administered on 07/07/16 20:24; Admin Dose 650 MG; Start 07/03/16 at 12:00 Acetaminophen (Tylenol Supp) 650 mg Q6H PRN [place] PAIN LEVEL 1-3 OR FEVER; Start 07/03/16 at 12:00 Acetaminophen/ Hydrocodone Bitart ([place] (5/325)) 1 tab Q6H PRN PO MODERATE PAIN LEVEL 4-6 Last administered on 07/06/16 01:51; Admin Dose 1 TAB; Start at 12:00 Acetaminophen/ Hydrocodone Bitart ([place] (5/325)) 2 tab Q6H PRN PO SEVERE PAIN LEVEL 7-10 Last administered on 07/05/16 17:16; Admin Dose 2 TAB; Start at 12:00 Morphine Sulfate (morphine) 2 mg Q4H PRN IV SEVERE PAIN LEVEL 7-10 Last administered on 07/07/16 01:02; Admin Dose 2 MG; Start 07/03/16 at 12:00 Docusate Sodium (Colace) 100 mg Q12H PRN PO CONSTIPATION; Start 07/03/16 at 12: 00 Magnesium Hydroxide (Milk Of Mag) 30 ml DAILY PRN PO CONSTIPATION; Start at 12:00 Bisacodyl (Dulcolax Supp) 10 mg DAILY PRN [place] CONSTIPATION; Start 07/03/16 at 12 :00 Hydralazine HCl (Apresoline) 10 mg Q4 PRN IV sbp>160; Start 07/03/16 at 12:00 Aripiprazole (Abilify) 2 mg DAILY PO Last administered on 07/07/16 09:23; Admin Dose 2 MG; Start 07/04/16 at 09:00 Aspirin (Halfprin) 81 mg DAILY PO Last administered on 07/07/16 09:23; Admin Dose 81 MG; Start 07/04/16 at 09:00 Benazepril HCl (Lotensin) 5 mg BID PO Last administered on 07/07/16 20:47; Admin Dose 5 MG; Start 07/03/16 at 21:00 Carbidopa/Levodopa (Sinemet (25/ )) 1 tab DAILY PO Last administered on 07/07 09:23; Admin Dose 1 TAB; Start 07/04/16 at 09:00 Carvedilol (Coreg) 12.5 mg BID PO Last administered on 07/07/16 20:46; Admin Dose 12.5 MG; Start 07/03/16 at 21:00 Clopidogrel Bisulfate (plaVIX) 75 mg DAILY PO Last administered on 07/07/16 09 :23; Admin Dose 75 MG; Start 07/04/16 at 09:00 Fluticasone Propionate (Flonase 0.05% Nasal) 1 spray BID NASAL Last administered on 07/07/16 20:55; Admin Dose 1 SPRAY; Start 07/03/16 at 21:00 Loratadine (Claritin) 10 mg DAILY PO Last administered on 07/07/16 09:23; Admin Dose 10 MG; Start 07/04/16 at 09:00 Meclizine HCl (Antivert) 25 mg Q12H PRN PO DIZZINESS; Start 07/03/16 at 14:30 Sertraline HCl (Zoloft) 50 mg DAILY PO Last administered on 07/07/16 09:29; Admin Dose 50 MG; Start 07/04/16 at 09:00 Spironolactone (Aldactone) 25 mg DAILY PO Last administered on 07/07/16 09:29 ; Admin Dose 25 MG; Start 07/04/16 at 09:00 Atorvastatin Calcium 10 mg 10 mg QHS PO Last administered on 07/07/16 20:24; Admin Dose 10 MG; Start 07/03/16 at 21:00 Sodium Bicarbonate/ Dextrose (Na Bicarb/D5W) 1,000 ml @ 60 mls/hr [id number] IV Last administered on 07/07/16 01:11; Admin Dose 60 MLS/HR; Start 07/03/16 at 14 :30 Miscellaneous Information 1 ea NOTE XX ; Start 07/03/16 at 15:00 Glucose (Glutose) 15 gm Q15M PRN PO DECREASED GLUCOSE; Start 07/03/16 at 15:00 Glucose (Glutose) 22.5 gm Q15M PRN PO DECREASED GLUCOSE; Start 07/03/16 at 15: 00 Dextrose (D50w Syringe) 25 ml Q15M PRN IV DECREASED GLUCOSE; Start 07/03/16 at 15:00 Dextrose (D50w Syringe) 50 ml Q15M PRN IV DECREASED GLUCOSE; Start 07/03/16 at 15:00 Glucagon (Glucagen) 1 mg Q15M PRN IM DECREASED GLUCOSE; Start 07/03/16 at 15:00 Glucose (Glutose) 15 gm Q15M PRN BUCCAL DECREASED GLUCOSE; Start 07/03/16 at 15 :00 Citric Acid/ Sodium Citrate (Bicitra) 30 ml BID PO Last administered on 20:27; Admin Dose 30 ML; Start 07/04/16 at 21:00 Heparin Sodium (Porcine) (Heparin (5000 Units/0.5 ml)) 5,000 unit BID SC Last administered on 07/07/16 09:28; Admin Dose 5,000 UNIT; Start 07/05/16 at 21:00 Trimethoprim/ Sulfamethoxazole (Bactrim (Ds)) 1 tab DAILY PO Last administered on 07/07/16 09:29; Admin Dose 1 TAB; Start 07/06/16 at 14:00 Oseltamivir Phosphate (Tamiflu) 30 mg DAILY PO Last administered on 07/07/16 09:23; Admin Dose 30 MG; Start 07/07/16 at 09:00; Stop 07/09/16 at 09:01 Pantoprazole (Protonix Tab) 40 mg DAILY@06 PO Last administered on 07/07/16 07 :42; Admin Dose 40 MG; Start 07/07/16 at 06:00 Diagnostic Test (Pha) (Accucheck) 1 ea 02 XX ; Start 07/08/16 at 02:00 Alprazolam (Xanax) 0.25 mg BID PO Last administered on 07/07/16 20:25; Admin Dose 0.25 MG; Start 07/07/16 at 11:30 Al Hydrox/Mg Hydrox/Simethicone (Mag-Al Plus) 30 ml Q6H PRN PO GASTROINTESTINAL UPSET Last administered on 07/07/16 11:35; Admin Dose 30 ML; Start 07/07/16 at 11:30 PERRY ALVARES MD Jul 07, 2016 21:11
[2016-07-07] MEDS ORDERED: POTASSIUM CHLORIDE (SR) 8 MEQ CAP PO ONE (21:30)
[2016-07-08] VITALS (13 sets, daily range): BP systolic 117–147; BP diastolic 56–79; PULSE 70–169; RESP 16–21
[2016-07-08] MEDS: HYDROCODONE/APAP (5/325) TAB PO PRN (00:17)
[2016-07-08] MEDS: SODIUM BICARBONATE (IV ADD) 100 MEQ in DEXTROSE 5% 900 ML IV SCH ×2 (01:40→17:57)
[2016-07-08] MEDS: ACCUCHECK XX SCH (02:00)
[2016-07-08] MEDS: morphine 2 MG INJ IV PRN (03:01)
[2016-07-08] MEDS: PANTOPRAZOLE (EC) 40 MG TAB PO SCH (06:26)
[2016-07-08 07:10] LABS: INR 0.96; PROTIME 12.8 Sec (12.2-14.2)
[2016-07-08 07:11] LABS: PARTIAL THROMBOPLASTIN TIME 32.3 Sec (25.0-35.0)
[2016-07-08 07:15] LABS: POTASSIUM 3.8 mmol/L (3.5-5.1)
[2016-07-08 07:18] LABS: CREATININE 2.84 mg/dl (0.44-1.00)
[2016-07-08 07:19] LABS: CALCIUM 7.7 mg/dl (8.4-10.2)
[2016-07-08] MEDS: INSULIN ASPART [NOVOLOG] 3 ML PEN SC SCH ×4 (07:29→22:00)
[2016-07-08] MEDS: ASPIRIN (EC) 81 MG TAB PO SCH (08:29)
[2016-07-08] MEDS: CITRIC ACID/NA CITRATE 30 ML CUP PO SCH ×2 (08:29→22:27)
[2016-07-08] MEDS: ARIPIPRAZOLE 2 MG TAB PO SCH (08:29)
[2016-07-08] MEDS: SPIRONOLACTONE 25 MG TAB PO SCH (08:29)
[2016-07-08] MEDS: TRIMETHOPRIM/SULFAMETHOX (DS) TAB PO SCH (08:29)
[2016-07-08] MEDS: SERTRALINE 50 MG TAB PO SCH (08:29)
[2016-07-08] MEDS: ALPRAZOLAM 0.25 MG TAB PO SCH ×2 (08:29→22:27)
[2016-07-08] MEDS: CARBIDOPA/LEVODOPA (25/100) TAB PO SCH (08:29)
[2016-07-08] MEDS: LORATADINE 10 MG TAB PO SCH (08:30)
[2016-07-08] MEDS: CLOPIDOGREL 75 MG TAB PO SCH (08:30)
[2016-07-08] MEDS: OSELTAMIVIR 30 MG CAP PO SCH (08:30)
[2016-07-08] MEDS: BENAZEPRIL 5 MG TAB PO SCH ×2 (08:30→22:29)
[2016-07-08] MEDS: FLUTICASONE 0.05% 16 GM NAS SPRAY NASAL SCH ×2 (08:31→23:17)
[2016-07-08] MEDS: HEPARIN 5,000 UNIT/0.5 ML SYG SC SCH ×2 (08:32→22:55)
[2016-07-08 09:39] LABS: BASOPHILS % 0.4 % (0.0-2.0); EOSINOPHILS # 0.1 10^3/ul (0.0-0.5); EOSINOPHILS % 2.5 % (0.0-7.0); HEMATOCRIT 32.9 % (37.0-47.0); HEMOGLOBIN 11.3 g/dl (12.0-16.0); LYMPHOCYTES # 1.1 10^3/ul (0.8-2.9); LYMPHOCYTES % 22.2 % (15.0-51.0); MEAN CORPUSCULAR HEMOGLOBIN 29.3 pg (29.0-33.0); MEAN CORPUSCULAR HGB CONC 34.4 g/dl (32.0-37.0); MEAN CORPUSCULAR VOLUME 85.2 fl (82.0-101.0); MEAN PLATELET VOLUME 8.5 fl (7.4-10.4); MONOCYTE # 0.5 10^3/ul (0.3-0.9); MONOCYTES % 9.7 % (0.0-11.0); NEUTROPHIL # 3.2 10^3/ul (1.6-7.5); NEUTROPHILS % 65.2 % (39.0-77.0); PLATELET COUNT 163 10^3/UL (140-440); RED BLOOD COUNT 3.87 10^6/ul (4.20-5.40); RED CELL DISTRIBUTION WIDTH 20.4 % (11.5-14.5); UNCORRECTED WBC 4.9 10^3/ul (4.8-10.8); WHITE BLOOD COUNT 4.9 10^3/ul (4.8-10.8)
[2016-07-08 09:42] LABS: CONDITION 1; LH ANALYZER COMMENTS 1
[2016-07-08] MEDS: MEGESTROL (40 MG/ML) 10ML CUP PO SCH (11:39)
--- NOTE | 2016-07-08 11:54 | PN ---
Date/Time of Note Date/Time of Note DATE: 07/08/16 TIME: 11:50 Assessment/Plan VTE Prophylaxis VTE Prophylaxis Intervention: heparin Lines/Catheters IV Catheter Type (from Nrs): Peripheral IV Urinary Cath still in place: Yes Reason Cath still needed: other (indicate) (pelvic fracture, uable to get outof bed and void ) Assessment/Plan Assessment/Plan 1. Right hip fracture s/p fall at home . Orthopedic surgeon following. Continue with analgesics as needed. Tentative plan for surgical intervention but Orthopedic requested to transfer to [facility] 2. 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 Patient does follow-up with her physician Dr. Valenzuela as outpatient for this issue. She is status post radiation therapy reportedly 3 weeks ago. Patient follow-up with outpatient oncologist 3. YOLETTE 2/2 prerenal azotemia 4. Anemia likely of chronic disease. STable. Transfuse PRBC as needed 5. History of CAD with previous CABG. We'll resume patient's antiplatelet therapy 6. Essential hypertension. continue on antihypertensives and adjust as needed 7. History of dyslipidemia. Follow-up on fasting lipid panel. 8. Reported history of diabetes. A1c: 5.9. will monitor 9.. Influenza A positive. Continue on Tamiflu 10. E.Coli UTI on IV levaquin PT, OT, S/p Orthopedic Surgery consulation,-pt family is inclined to have hip surgery and as per orthoepdic Surgery Dr Byrd- he recommended to transfer to [facility] Heparin for DVT prophyalxis Subjective 24 Hr Interval Summary Free Text/Dictation pt on list for tranfer to [facility], c/o Pain in hip, otherwise stable Exam/Review of Systems Vital Signs Vitals Vital Signs Date Time Temp Pulse Resp B/P Pulse Ox O2 Delivery O2 Flow Rate FiO2 07/08/16 09:17 72 07/08/16 08:17 97.7 18 117/56 94 Intake and Output 07/07/16 07/07/16 07/08/16 14:59 22:59 06:59 Intake Total 800 ml Output Total 2500 ml Balance -1700 ml Exam General: No acute signs or symptoms of distress Eyes: pupils equal round, Anicteric sclera Neck: Supple nontender, no JVD Cardiac: S1, S2 auscultated, regular rhythm and rate Pulmonary: No coarse rhonchi or breathing auscultated GI: Abdomen soft nontender nondistended, bowel sounds active Extremities: Pain on palpation of bilateral lower extremity Skin: Clean dry and intact Neurologic: Alert to person place and time and situation Results Result Diagram: 07/08/16 0639 07/08/16 0639 Results 24 hrs Laboratory Tests Test 07/07/16 16:52 07/07/16 20:50 07/08/16 06:39 07/08/16 07:21 Bedside Glucose 120 142 160 Activated Partial Thromboplast Time 32.3 Anion Gap 20 H Basophils # 0.0 Basophils % 0.4 Blood Morphology Comment Blood Urea Nitrogen 37 #H Calcium Level 7.7 L Carbon Dioxide Level 27 Chloride Level 101 Creatinine 2.84 H Eosinophils # 0.1 Eosinophils % 2.5 Glucose Level 162 Hematocrit 32.9 L Hemoglobin 11.3 L INR International Normalized Ratio 0.96 Lymphocytes # 1.1 Lymphocytes % 22.2 Mean Corpuscular Hemoglobin 29.3 Mean Corpuscular Hemoglobin Concent 34.4 Mean Corpuscular Volume 85.2 Mean Platelet Volume 8.5 Monocytes # 0.5 Monocytes % 9.7 Neutrophils # 3.2 Neutrophils % 65.2 Nucleated Red Blood Cells # 0.0 Nucleated Red Blood Cells % 0.0 Platelet Count 163 Potassium Level 3.8 Prothrombin Time 12.8 Prothrombin Time Ratio 1.0 Red Blood Count 3.87 L Red Cell Distribution Width 20.4 H Sodium Level 144 White Blood Count 4.9 # Test 07/08/16 11:29 Bedside Glucose 177 Medications Medications Current Medications Ondansetron HCl (Zofran Inj) 4 mg Q6H PRN IV NAUSEA AND/OR VOMITING Last administered on 07/06/16 11:46; Admin Dose 4 MG; Start 07/03/16 at 12:00 Acetaminophen (Tylenol Tab) 650 mg Q6H PRN PO PAIN LEVEL 1-3 OR FEVER Last administered on 07/07/16 20:24; Admin Dose 650 MG; Start 07/03/16 at 12:00 Acetaminophen (Tylenol Supp) 650 mg Q6H PRN [place] PAIN LEVEL 1-3 OR FEVER; Start 07/03/16 at 12:00 Acetaminophen/ Hydrocodone Bitart ([place] (5/325)) 1 tab Q6H PRN PO MODERATE PAIN LEVEL 4-6 Last administered on 07/06/16 01:51; Admin Dose 1 TAB; Start at 12:00 Acetaminophen/ Hydrocodone Bitart ([place] (5/325)) 2 tab Q6H PRN PO SEVERE PAIN LEVEL 7-10 Last administered on 07/08/16 00:17; Admin Dose 2 TAB; Start at 12:00 Morphine Sulfate (morphine) 2 mg Q4H PRN IV SEVERE PAIN LEVEL 7-10 Last administered on 07/08/16 03:01; Admin Dose 2 MG; Start 07/03/16 at 12:00 Docusate Sodium (Colace) 100 mg Q12H PRN PO CONSTIPATION; Start 07/03/16 at 12: 00 Magnesium Hydroxide (Milk Of Mag) 30 ml DAILY PRN PO CONSTIPATION; Start at 12:00 Bisacodyl (Dulcolax Supp) 10 mg DAILY PRN [place] CONSTIPATION; Start 07/03/16 at 12 :00 Hydralazine HCl (Apresoline) 10 mg Q4 PRN IV sbp>160; Start 07/03/16 at 12:00 Aripiprazole (Abilify) 2 mg DAILY PO Last administered on 07/08/16 08:29; Admin Dose 2 MG; Start 07/04/16 at 09:00 Aspirin (Halfprin) 81 mg DAILY PO Last administered on 07/08/16 08:29; Admin Dose 81 MG; Start 07/04/16 at 09:00 Benazepril HCl (Lotensin) 5 mg BID PO Last administered on 07/08/16 08:30; Admin Dose 5 MG; Start 07/03/16 at 21:00 Carbidopa/Levodopa (Sinemet (25/ 100)) 1 tab DAILY PO Last administered on 07/08 08:29; Admin Dose 1 TAB; Start 07/04/16 at 09:00 Carvedilol (Coreg) 12.5 mg BID PO Last administered on 07/08/16 08:30; Admin Dose 12.5 MG; Start 07/03/16 at 21:00 Clopidogrel Bisulfate (plaVIX) 75 mg DAILY PO Last administered on 07/08/16 08 :30; Admin Dose 75 MG; Start 07/04/16 at 09:00 Fluticasone Propionate (Flonase 0.05% Nasal) 1 spray BID NASAL Last administered on 07/08/16 08:31; Admin Dose 1 SPRAY; Start 07/03/16 at 21:00 Loratadine (Claritin) 10 mg DAILY PO Last administered on 07/08/16 08:30; Admin Dose 10 MG; Start 07/04/16 at 09:00 Meclizine HCl (Antivert) 25 mg Q12H PRN PO DIZZINESS; Start 07/03/16 at 14:30 Sertraline HCl (Zoloft) 50 mg DAILY PO Last administered on 07/08/16 08:29; Admin Dose 50 MG; Start 07/04/16 at 09:00 Spironolactone (Aldactone) 25 mg DAILY PO Last administered on 07/08/16 08:29 ; Admin Dose 25 MG; Start 07/04/16 at 09:00 Atorvastatin Calcium 10 mg 10 mg QHS PO Last administered on 07/07/16 20:24; Admin Dose 10 MG; Start 07/03/16 at 21:00 Sodium Bicarbonate/ Dextrose (Na Bicarb/D5W) 1,000 ml @ 60 mls/hr [id number] IV Last administered on 07/08/16 01:40; Admin Dose 60 MLS/HR; Start 07/03/16 at 14 :30 Miscellaneous Information 1 ea NOTE XX ; Start 07/03/16 at 15:00 Glucose (Glutose) 15 gm Q15M PRN PO DECREASED GLUCOSE; Start 07/03/16 at 15:00 Glucose (Glutose) 22.5 gm Q15M PRN PO DECREASED GLUCOSE; Start 07/03/16 at 15: 00 Dextrose (D50w Syringe) 25 ml Q15M PRN IV DECREASED GLUCOSE; Start 07/03/16 at 15:00 Dextrose (D50w Syringe) 50 ml Q15M PRN IV DECREASED GLUCOSE; Start 07/03/16 at 15:00 Glucagon (Glucagen) 1 mg Q15M PRN IM DECREASED GLUCOSE; Start 07/03/16 at 15:00 Glucose (Glutose) 15 gm Q15M PRN BUCCAL DECREASED GLUCOSE; Start 07/03/16 at 15 :00 Citric Acid/ Sodium Citrate (Bicitra) 30 ml BID PO Last administered on 08:29; Admin Dose 30 ML; Start 07/04/16 at 21:00 Heparin Sodium (Porcine) (Heparin (5000 Units/0.5 ml)) 5,000 unit BID SC Last administered on 07/08/16 08:32; Admin Dose 5,000 UNIT; Start 07/05/16 at 21:00 Trimethoprim/ Sulfamethoxazole (Bactrim (Ds)) 1 tab DAILY PO Last administered on 07/08/16 08:29; Admin Dose 1 TAB; Start 07/06/16 at 14:00 Oseltamivir Phosphate (Tamiflu) 30 mg DAILY PO Last administered on 07/08/16 08:30; Admin Dose 30 MG; Start 07/07/16 at 09:00; Stop 07/09/16 at 09:01 Pantoprazole (Protonix Tab) 40 mg DAILY@06 PO Last administered on 07/08/16 06 :26; Admin Dose 40 MG; Start 07/07/16 at 06:00 Diagnostic Test (Pha) (Accucheck) 1 ea 02 XX ; Start 07/08/16 at 02:00 Alprazolam (Xanax) 0.25 mg BID PO Last administered on 07/08/16 08:29; Admin Dose 0.25 MG; Start 07/07/16 at 11:30 Al Hydrox/Mg Hydrox/Simethicone (Mag-Al Plus) 30 ml Q6H PRN PO GASTROINTESTINAL UPSET Last administered on 07/07/16 11:35; Admin Dose 30 ML; Start 07/07/16 at 11:30 MEHDI MISTRY MD Jul 08, 2016 11:53
[2016-07-08] MEDS: MAGNESIUM HYDROXIDE 30ML CUP PO PRN (12:36)
--- NOTE | 2016-07-08 19:03 | CONS ---
Date/Time of Note Date/Time of Note DATE: 07/08/16 TIME: 19:01 Assessment/Plan Assessment/Plan Chief Complaint/Hosp Course IMPRESSION: 1. Patient has [id number] kidney disease, acute renal failure due to prerenal azotemia. 2. Patient has underlying chronic kidney disease, possibly hypertensive nephrosclerosis, and possible diabetic nephropathy. 3. Hyperkalemia, worsened by aldosterone antagonist. 4. Anemia of possibly chronic kidney disease. 5. Metabolic acidosis. better 6. The patient also is status post fall with right hip fracture. 7. Coronary artery disease with coronary artery bypass graft. 8. History of hysterectomy. 9. History of breast cancer, surgery on treatment. 10. Underlying chronic tubular interstitial nephritis. 11. proteinuria. plan ck bmp bicitra renal stable DC ALDACTONE AVOID SEPTRA BMP Problems: Consultation Date/Type/Reason Admit Date/Time Jul 03, 2016 at 11:46 Initial Consult Date 07/03/16 Type of Consultation: renal Referring Provider: JUNI NUNEZ 24 HR Interval Summary Constitutional: no complaints Exam/Review of Systems Vital Signs Vitals Vital Signs Date Time Temp Pulse Resp B/P Pulse Ox O2 Delivery O2 Flow Rate FiO2 07/08/16 17:17 74 07/08/16 16:15 97.8 18 132/79 98 Intake and Output 07/07/16 07/07/16 07/08/16 15:00 23:00 07:00 Intake Total 800 ml Output Total 2500 ml Balance -1700 ml Exam Neck: supple Respiratory: clear to auscultation Cardiovascular: regular rate and rhythm Gastrointestinal: bowel sounds (+), non-tender, soft Extremities: No edema Results Result Diagram: 07/08/16 0639 07/08/16 0639 Results 24 hrs Laboratory Tests Test 07/07/16 20:50 07/08/16 06:39 07/08/16 07:21 07/08/16 11:29 Bedside Glucose 142 160 177 Activated Partial Thromboplast Time 32.3 Anion Gap 20 H Basophils # 0.0 Basophils % 0.4 Blood Morphology Comment Blood Urea Nitrogen 37 #H Calcium Level 7.7 L Carbon Dioxide Level 27 Chloride Level 101 Creatinine 2.84 H Eosinophils # 0.1 Eosinophils % 2.5 Glucose Level 162 Hematocrit 32.9 L Hemoglobin 11.3 L INR International Normalized Ratio 0.96 Lymphocytes # 1.1 Lymphocytes % 22.2 Mean Corpuscular Hemoglobin 29.3 Mean Corpuscular Hemoglobin Concent 34.4 Mean Corpuscular Volume 85.2 Mean Platelet Volume 8.5 Monocytes # 0.5 Monocytes % 9.7 Neutrophils # 3.2 Neutrophils % 65.2 Nucleated Red Blood Cells # 0.0 Nucleated Red Blood Cells % 0.0 Platelet Count 163 Potassium Level 3.8 Prothrombin Time 12.8 Prothrombin Time Ratio 1.0 Red Blood Count 3.87 L Red Cell Distribution Width 20.4 H Sodium Level 144 White Blood Count 4.9 # Test 07/08/16 16:57 Bedside Glucose 169 Medications Medications Current Medications Ondansetron HCl (Zofran Inj) 4 mg Q6H PRN IV NAUSEA AND/OR VOMITING Last administered on 07/06/16 11:46; Admin Dose 4 MG; Start 07/03/16 at 12:00 Acetaminophen (Tylenol Tab) 650 mg Q6H PRN PO PAIN LEVEL 1-3 OR FEVER Last administered on 07/07/16 20:24; Admin Dose 650 MG; Start 07/03/16 at 12:00 Acetaminophen (Tylenol Supp) 650 mg Q6H PRN [place] PAIN LEVEL 1-3 OR FEVER; Start 07/03/16 at 12:00 Acetaminophen/ Hydrocodone Bitart ([place] (5/325)) 1 tab Q6H PRN PO MODERATE PAIN LEVEL 4-6 Last administered on 07/06/16 01:51; Admin Dose 1 TAB; Start at 12:00 Acetaminophen/ Hydrocodone Bitart ([place] (5/325)) 2 tab Q6H PRN PO SEVERE PAIN LEVEL 7-10 Last administered on 07/08/16 00:17; Admin Dose 2 TAB; Start at 12:00 Morphine Sulfate (morphine) 2 mg Q4H PRN IV SEVERE PAIN LEVEL 7-10 Last administered on 07/08/16 03:01; Admin Dose 2 MG; Start 07/03/16 at 12:00 Docusate Sodium (Colace) 100 mg Q12H PRN PO CONSTIPATION; Start 07/03/16 at 12: 00 Magnesium Hydroxide (Milk Of Mag) 30 ml DAILY PRN PO CONSTIPATION Last administered on 07/08/16 12:36; Admin Dose 30 ML; Start 07/03/16 at 12:00 Bisacodyl (Dulcolax Supp) 10 mg DAILY PRN [place] CONSTIPATION; Start 07/03/16 at 12 :00 Hydralazine HCl (Apresoline) 10 mg Q4 PRN IV sbp>160; Start 07/03/16 at 12:00 Aripiprazole (Abilify) 2 mg DAILY PO Last administered on 07/08/16 08:29; Admin Dose 2 MG; Start 07/04/16 at 09:00 Aspirin (Halfprin) 81 mg DAILY PO Last administered on 07/08/16 08:29; Admin Dose 81 MG; Start 07/04/16 at 09:00 Benazepril HCl (Lotensin) 5 mg BID PO Last administered on 07/08/16 08:30; Admin Dose 5 MG; Start 07/03/16 at 21:00 Carbidopa/Levodopa (Sinemet (25/ 100)) 1 tab DAILY PO Last administered on 07/08 08:29; Admin Dose 1 TAB; Start 07/04/16 at 09:00 Carvedilol (Coreg) 12.5 mg BID PO Last administered on 07/08/16 08:30; Admin Dose 12.5 MG; Start 07/03/16 at 21:00 Clopidogrel Bisulfate (plaVIX) 75 mg DAILY PO Last administered on 07/08/16 08 :30; Admin Dose 75 MG; Start 07/04/16 at 09:00 Fluticasone Propionate (Flonase 0.05% Nasal) 1 spray BID NASAL Last administered on 07/08/16 08:31; Admin Dose 1 SPRAY; Start 07/03/16 at 21:00 Loratadine (Claritin) 10 mg DAILY PO Last administered on 07/08/16 08:30; Admin Dose 10 MG; Start 07/04/16 at 09:00 Meclizine HCl (Antivert) 25 mg Q12H PRN PO DIZZINESS; Start 07/03/16 at 14:30 Sertraline HCl (Zoloft) 50 mg DAILY PO Last administered on 07/08/16 08:29; Admin Dose 50 MG; Start 07/04/16 at 09:00 Atorvastatin Calcium 10 mg 10 mg QHS PO Last administered on 07/07/16 20:24; Admin Dose 10 MG; Start 07/03/16 at 21:00 Sodium Bicarbonate/ Dextrose (Na Bicarb/D5W) 1,000 ml @ 60 mls/hr [id number] IV Last administered on 07/08/16 01:40; Admin Dose 60 MLS/HR; Start 07/03/16 at 14 :30 Miscellaneous Information 1 ea NOTE XX ; Start 07/03/16 at 15:00 Glucose (Glutose) 15 gm Q15M PRN PO DECREASED GLUCOSE; Start 07/03/16 at 15:00 Glucose (Glutose) 22.5 gm Q15M PRN PO DECREASED GLUCOSE; Start 07/03/16 at 15: 00 Dextrose (D50w Syringe) 25 ml Q15M PRN IV DECREASED GLUCOSE; Start 07/03/16 at 15:00 Dextrose (D50w Syringe) 50 ml Q15M PRN IV DECREASED GLUCOSE; Start 07/03/16 at 15:00 Glucagon (Glucagen) 1 mg Q15M PRN IM DECREASED GLUCOSE; Start 07/03/16 at 15:00 Glucose (Glutose) 15 gm Q15M PRN BUCCAL DECREASED GLUCOSE; Start 07/03/16 at 15 :00 Citric Acid/ Sodium Citrate (Bicitra) 30 ml BID PO Last administered on 08:29; Admin Dose 30 ML; Start 07/04/16 at 21:00 Heparin Sodium (Porcine) (Heparin (5000 Units/0.5 ml)) 5,000 unit BID SC Last administered on 07/08/16 08:32; Admin Dose 5,000 UNIT; Start 07/05/16 at 21:00 Trimethoprim/ Sulfamethoxazole (Bactrim (Ds)) 1 tab DAILY PO Last administered on 07/08/16 08:29; Admin Dose 1 TAB; Start 07/06/16 at 14:00 Oseltamivir Phosphate (Tamiflu) 30 mg DAILY PO Last administered on 07/08/16 08:30; Admin Dose 30 MG; Start 07/07/16 at 09:00; Stop 07/09/16 at 09:01 Pantoprazole (Protonix Tab) 40 mg DAILY@06 PO Last administered on 07/08/16 06 :26; Admin Dose 40 MG; Start 07/07/16 at 06:00 Diagnostic Test (Pha) (Accucheck) 1 ea 02 XX ; Start 07/08/16 at 02:00 Alprazolam (Xanax) 0.25 mg BID PO Last administered on 07/08/16 08:29; Admin Dose 0.25 MG; Start 07/07/16 at 11:30 Al Hydrox/Mg Hydrox/Simethicone (Mag-Al Plus) 30 ml Q6H PRN PO GASTROINTESTINAL UPSET Last administered on 07/07/16 11:35; Admin Dose 30 ML; Start 07/07/16 at 11:30 PERRY ALVARES MD Jul 08, 2016 19:03
[2016-07-08] MEDS: ATORVASTATIN 10 MG TAB PO SCH (22:27)
[2016-07-08] MEDS: ACETAMINOPHEN 325 MG TAB PO PRN (22:37)
[2016-07-09] VITALS (12 sets, daily range): BP systolic 90–133; BP diastolic 46–71; PULSE 74–82; RESP 16–19
[2016-07-09] MEDS: ACCUCHECK XX SCH (02:00)
[2016-07-09] MEDS: PANTOPRAZOLE (EC) 40 MG TAB PO SCH (06:26)
[2016-07-09 07:24] LABS: INR 1.02; PROTIME 13.4 Sec (12.2-14.2)
[2016-07-09 07:25] LABS: PARTIAL THROMBOPLASTIN TIME 33.6 Sec (25.0-35.0)
[2016-07-09 07:32] LABS: POTASSIUM 4.3 mmol/L (3.5-5.1)
[2016-07-09 07:35] LABS: CREATININE 2.95 mg/dl (0.44-1.00)
[2016-07-09 07:36] LABS: CALCIUM 8.1 mg/dl (8.4-10.2)
[2016-07-09] MEDS: INSULIN ASPART [NOVOLOG] 3 ML PEN SC SCH ×4 (08:00→21:36)
[2016-07-09 08:03] LABS: BASOPHILS % 0.4 % (0.0-2.0); EOSINOPHILS # 0.2 10^3/ul (0.0-0.5); EOSINOPHILS % 3.2 % (0.0-7.0); HEMATOCRIT 34.4 % (37.0-47.0); HEMOGLOBIN 10.9 g/dl (12.0-16.0); LYMPHOCYTES # 1.2 10^3/ul (0.8-2.9); MEAN CORPUSCULAR HEMOGLOBIN 28.1 pg (29.0-33.0); MEAN CORPUSCULAR HGB CONC 31.7 g/dl (32.0-37.0); MEAN CORPUSCULAR VOLUME 88.7 fl (82.0-101.0); MEAN PLATELET VOLUME 10.9 fl (7.4-10.4); MONOCYTE # 0.5 10^3/ul (0.3-0.9); NEUTROPHIL # 3.7 10^3/ul (1.6-7.5); NEUTROPHILS % 65.9 % (39.0-77.0); PLATELET COUNT 149 10^3/UL (140-415); RED BLOOD COUNT 3.88 10^6/ul (4.20-5.40); RED CELL DISTRIBUTION WIDTH 19.2 % (11.5-14.5); WHITE BLOOD COUNT 5.6 10^3/ul (4.8-10.8)
[2016-07-09] MEDS: OSELTAMIVIR 30 MG CAP PO SCH (09:00)
[2016-07-09] MEDS: ASPIRIN (EC) 81 MG TAB PO SCH (09:35)
[2016-07-09] MEDS: CITRIC ACID/NA CITRATE 30 ML CUP PO SCH ×2 (09:35→21:37)
[2016-07-09] MEDS: SERTRALINE 50 MG TAB PO SCH (09:35)
[2016-07-09] MEDS: ARIPIPRAZOLE 2 MG TAB PO SCH (09:36)
[2016-07-09] MEDS: TRIMETHOPRIM/SULFAMETHOX (DS) TAB PO SCH (09:36)
[2016-07-09] MEDS: LORATADINE 10 MG TAB PO SCH (09:36)
[2016-07-09] MEDS: CARBIDOPA/LEVODOPA (25/100) TAB PO SCH (09:36)
[2016-07-09] MEDS: CLOPIDOGREL 75 MG TAB PO SCH (09:36)
[2016-07-09] MEDS: BENAZEPRIL 5 MG TAB PO SCH (09:36)
[2016-07-09] MEDS: ALPRAZOLAM 0.25 MG TAB PO SCH ×2 (09:36→21:38)
[2016-07-09] MEDS: FLUTICASONE 0.05% 16 GM NAS SPRAY NASAL SCH ×2 (09:37→21:43)
[2016-07-09] MEDS: HEPARIN 5,000 UNIT/0.5 ML SYG SC SCH ×2 (09:47→21:39)
--- NOTE | 2016-07-09 11:53 | PN ---
Date/Time of Note Date/Time of Note DATE: 07/09/16 TIME: 11:48 Assessment/Plan VTE Prophylaxis VTE Prophylaxis Intervention: heparin Lines/Catheters IV [facility]ter Type (from [facility]): Peripheral IV Urinary Cath still in place: Yes Reason Cath still needed: other (indicate) (pelvic fracture awaiting hip hemoarthroplasty ) Assessment/Plan Assessment/Plan 1. Right hip fracture s/p fall at home . Orthopedic surgeon following. Continue with analgesics as needed. need surgical intervention 2. 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 Patient does follow-up with her physician Dr. Valenzuela as outpatient for this issue. She is status post radiation therapy reportedly 3 weeks ago. Patient follow-up with outpatient oncologist 3. YOLETTE 2/2 prerenal azotemia 4. Anemia likely of chronic disease. STable. Transfuse PRBC as needed 5. History of CAD with previous CABG. We'll resume patient's antiplatelet therapy 6. Essential hypertension. continue on antihypertensives and adjust as needed 7. History of dyslipidemia. Follow-up on fasting lipid panel. 8. Reported history of diabetes. A1c: 5.9. will monitor 9.. Influenza A positive. Continue on Tamiflu 10. E.Coli UTI on IV levaquin PT, OT, S/p Orthopedic Surgery consulation,-pt family is inclined to have hip surgery and as per orthoepdic Surgery Dr Byrd-plan for possible surgery here at [facility] Heparin for DVT prophyalxis [employer] to evaluate for pre op clearance Subjective 24 Hr Interval Summary Free Text/Dictation s/p Follow up by , possible plan for Surgery here at [facility] Exam/Review of Systems Vital Signs Vitals Vital Signs Date Time Temp Pulse Resp B/P Pulse Ox O2 Delivery O2 Flow Rate FiO2 07/09/16 11:00 98.2 76 19 121/56 94 Intake and Output 07/08/16 07/08/16 07/09/16 15:00 23:00 07:00 Intake Total 360 ml 1150 ml 240 ml Output Total 800 ml 1150 ml Balance 360 ml 350 ml -910 ml Exam General: No acute signs or symptoms of distress Eyes: pupils equal round, Anicteric sclera Neck: Supple nontender, no JVD Cardiac: S1, S2 auscultated, regular rhythm and rate Pulmonary: No coarse rhonchi or breathing auscultated GI: Abdomen soft nontender nondistended, bowel sounds active Extremities: Pain on palpation of bilateral lower extremity Skin: Clean dry and intact Neurologic: Alert to person place and time and situation Results Result Diagram: 07/09/16 0615 07/09/16 0614 Results 24 hrs Laboratory Tests Test 07/08/16 16:57 07/08/16 22:39 07/09/16 06:14 07/09/16 06:15 Bedside Glucose 169 146 Anion Gap 20 H Blood Urea Nitrogen 40 H Calcium Level 8.1 L Carbon Dioxide Level 25 Chloride Level 103 Creatinine 2.95 H Glucose Level 122 # Potassium Level 4.3 Sodium Level 144 Activated Partial Thromboplast Time 33.6 Basophils # 0.0 Basophils % 0.4 Eosinophils # 0.2 Eosinophils % 3.2 Hematocrit 34.4 L Hemoglobin 10.9 L INR International Normalized Ratio 1.02 Lymphocytes # 1.2 Lymphocytes % 21.0 Magnesium Level 1.9 Mean Corpuscular Hemoglobin 28.1 L Mean Corpuscular Hemoglobin Concent 31.7 L Mean Corpuscular Volume 88.7 Mean Platelet Volume 10.9 #H Monocytes # 0.5 Monocytes % 9.0 Neutrophils # 3.7 Neutrophils % 65.9 Nucleated Red Blood Cells # 0.0 Nucleated Red Blood Cells % 0.0 Platelet Count 149 Prothrombin Time 13.4 Prothrombin Time Ratio 1.0 Red Blood Count 3.88 L Red Cell Distribution Width 19.2 H White Blood Count 5.6 Test 07/09/16 07:56 Bedside Glucose 113 Medications Medications Current Medications Ondansetron HCl (Zofran Inj) 4 mg Q6H PRN IV NAUSEA AND/OR VOMITING Last administered on 07/06/16 11:46; Admin Dose 4 MG; Start 07/03/16 at 12:00 Acetaminophen (Tylenol Tab) 650 mg Q6H PRN PO PAIN LEVEL 1-3 OR FEVER Last administered on 07/08/16 22:37; Admin Dose 650 MG; Start 07/03/16 at 12:00 Acetaminophen (Tylenol Supp) 650 mg Q6H PRN [place] PAIN LEVEL 1-3 OR FEVER; Start 07/03/16 at 12:00 Acetaminophen/ Hydrocodone Bitart ([place] (5/325)) 1 tab Q6H PRN PO MODERATE PAIN LEVEL 4-6 Last administered on 07/06/16 01:51; Admin Dose 1 TAB; Start at 12:00 Acetaminophen/ Hydrocodone Bitart ([place] (5/325)) 2 tab Q6H PRN PO SEVERE PAIN LEVEL 7-10 Last administered on 07/08/16 00:17; Admin Dose 2 TAB; Start at 12:00 Morphine Sulfate (morphine) 2 mg Q4H PRN IV SEVERE PAIN LEVEL 7-10 Last administered on 07/08/16 03:01; Admin Dose 2 MG; Start 07/03/16 at 12:00 Docusate Sodium (Colace) 100 mg Q12H PRN PO CONSTIPATION; Start 07/03/16 at 12: 00 Magnesium Hydroxide (Milk Of Mag) 30 ml DAILY PRN PO CONSTIPATION Last administered on 07/08/16 12:36; Admin Dose 30 ML; Start 07/03/16 at 12:00 Bisacodyl (Dulcolax Supp) 10 mg DAILY PRN [place] CONSTIPATION; Start 07/03/16 at 12 :00 Hydralazine HCl (Apresoline) 10 mg Q4 PRN IV sbp>160; Start 07/03/16 at 12:00 Aripiprazole (Abilify) 2 mg DAILY PO Last administered on 07/09/16 09:36; Admin Dose 2 MG; Start 07/04/16 at 09:00 Aspirin (Halfprin) 81 mg DAILY PO Last administered on 07/09/16 09:35; Admin Dose 81 MG; Start 07/04/16 at 09:00 Benazepril HCl (Lotensin) 5 mg BID PO Last administered on 07/09/16 09:36; Admin Dose 5 MG; Start 07/03/16 at 21:00 Carbidopa/Levodopa (Sinemet (25/ 100)) 1 tab DAILY PO Last administered on 07/09 09:36; Admin Dose 1 TAB; Start 07/04/16 at 09:00 Carvedilol (Coreg) 12.5 mg BID PO Last administered on 07/09/16 09:36; Admin Dose 12.5 MG; Start 07/03/16 at 21:00 Clopidogrel Bisulfate (plaVIX) 75 mg DAILY PO Last administered on 07/09/16 09 :36; Admin Dose 75 MG; Start 07/04/16 at 09:00 Fluticasone Propionate (Flonase 0.05% Nasal) 1 spray BID NASAL Last administered on 07/09/16 09:37; Admin Dose 1 SPRAY; Start 07/03/16 at 21:00 Loratadine (Claritin) 10 mg DAILY PO Last administered on 07/09/16 09:36; Admin Dose 10 MG; Start 07/04/16 at 09:00 Meclizine HCl (Antivert) 25 mg Q12H PRN PO DIZZINESS; Start 07/03/16 at 14:30 Sertraline HCl (Zoloft) 50 mg DAILY PO Last administered on 07/09/16 09:35; Admin Dose 50 MG; Start 07/04/16 at 09:00 Atorvastatin Calcium 10 mg 10 mg QHS PO Last administered on 07/08/16 22:27; Admin Dose 10 MG; Start 07/03/16 at 21:00 Sodium Bicarbonate/ Dextrose (Na Bicarb/D5W) 1,000 ml @ 60 mls/hr [id number] IV Last administered on 07/08/16 01:40; Admin Dose 60 MLS/HR; Start 07/03/16 at 14 :30 Miscellaneous Information 1 ea NOTE XX ; Start 07/03/16 at 15:00 Glucose (Glutose) 15 gm Q15M PRN PO DECREASED GLUCOSE; Start 07/03/16 at 15:00 Glucose (Glutose) 22.5 gm Q15M PRN PO DECREASED GLUCOSE; Start 07/03/16 at 15: 00 Dextrose (D50w Syringe) 25 ml Q15M PRN IV DECREASED GLUCOSE; Start 07/03/16 at 15:00 Dextrose (D50w Syringe) 50 ml Q15M PRN IV DECREASED GLUCOSE; Start 07/03/16 at 15:00 Glucagon (Glucagen) 1 mg Q15M PRN IM DECREASED GLUCOSE; Start 07/03/16 at 15:00 Glucose (Glutose) 15 gm Q15M PRN BUCCAL DECREASED GLUCOSE; Start 07/03/16 at 15 :00 Citric Acid/ Sodium Citrate (Bicitra) 30 ml BID PO Last administered on 09:35; Admin Dose 30 ML; Start 07/04/16 at 21:00 Heparin Sodium (Porcine) (Heparin (5000 Units/0.5 ml)) 5,000 unit BID SC Last administered on 07/09/16 09:47; Admin Dose 5,000 UNIT; Start 07/05/16 at 21:00 Trimethoprim/ Sulfamethoxazole (Bactrim (Ds)) 1 tab DAILY PO Last administered on 07/09/16 09:36; Admin Dose 1 TAB; Start 07/06/16 at 14:00 Pantoprazole (Protonix Tab) 40 mg DAILY@06 PO Last administered on 07/09/16 06 :26; Admin Dose 40 MG; Start 07/07/16 at 06:00 Diagnostic Test (Pha) (Accucheck) 1 ea 02 XX ; Start 07/08/16 at 02:00 Alprazolam (Xanax) 0.25 mg BID PO Last administered on 07/09/16 09:36; Admin Dose 0.25 MG; Start 07/07/16 at 11:30 Al Hydrox/Mg Hydrox/Simethicone (Mag-Al Plus) 30 ml Q6H PRN PO GASTROINTESTINAL UPSET Last administered on 07/07/16 11:35; Admin Dose 30 ML; Start 07/07/16 at 11:30 MEHDI MISTRY MD Jul 09, 2016 11:53
[2016-07-09] MEDS: HYDROCODONE/APAP (5/325) TAB PO PRN (14:04)
[2016-07-09] MEDS: MEGESTROL (40 MG/ML) 10ML CUP PO SCH (14:47)
[2016-07-09] MEDS: SODIUM BICARBONATE (IV ADD) 100 MEQ in DEXTROSE 5% 900 ML IV SCH (15:18)
[2016-07-09] MEDS: morphine 2 MG INJ IV PRN (15:18)
--- NOTE | 2016-07-09 20:24 | CONS ---
Date/Time of Note Date/Time of Note DATE: 07/09/16 TIME: 20:23 Assessment/Plan Assessment/Plan Chief Complaint/Hosp Course IMPRESSION: 1. Patient has [id number] kidney disease, acute renal failure due to prerenal azotemia. 2. Patient has underlying chronic kidney disease, possibly hypertensive nephrosclerosis, and possible diabetic nephropathy. 3. Hyperkalemia, worsened by aldosterone antagonist. 4. Anemia of possibly chronic kidney disease. 5. Metabolic acidosis. better 6. The patient also is status post fall with right hip fracture. 7. Coronary artery disease with coronary artery bypass graft. 8. History of hysterectomy. 9. History of breast cancer, surgery on treatment. 10. Underlying chronic tubular interstitial nephritis. 11. proteinuria. plan ck bmp bicitra renal stable DC ALDACTONE AVOID SEPTRA BMP Problems: Consultation Date/Type/Reason Admit Date/Time Jul 03, 2016 at 11:46 Initial Consult Date 07/03/16 Type of Consultation: renal Referring Provider: JUNI NUNEZ 24 HR Interval Summary Constitutional: other (no distress) Exam/Review of Systems Vital Signs Vitals Vital Signs Date Time Temp Pulse Resp B/P Pulse Ox O2 Delivery O2 Flow Rate FiO2 07/09/16 19:58 98.0 74 18 90/46 93 Intake and Output 07/08/16 07/08/16 07/09/16 15:00 23:00 07:00 Intake Total 360 ml 1150 ml 240 ml Output Total 800 ml 1150 ml Balance 360 ml 350 ml -910 ml Exam Respiratory: clear to auscultation Cardiovascular: regular rate and rhythm Gastrointestinal: soft Extremities: normal pulses Results Result Diagram: 07/09/16 0615 07/09/16 0614 Results 24 hrs Laboratory Tests Test 07/08/16 22:39 07/09/16 06:14 07/09/16 06:15 07/09/16 07:56 Bedside Glucose 146 113 Anion Gap 20 H Blood Urea Nitrogen 40 H Calcium Level 8.1 L Carbon Dioxide Level 25 Chloride Level 103 Creatinine 2.95 H Glucose Level 122 # Potassium Level 4.3 Sodium Level 144 Activated Partial Thromboplast Time 33.6 Basophils # 0.0 Basophils % 0.4 Eosinophils # 0.2 Eosinophils % 3.2 Hematocrit 34.4 L Hemoglobin 10.9 L INR International Normalized Ratio 1.02 Lymphocytes # 1.2 Lymphocytes % 21.0 Magnesium Level 1.9 Mean Corpuscular Hemoglobin 28.1 L Mean Corpuscular Hemoglobin Concent 31.7 L Mean Corpuscular Volume 88.7 Mean Platelet Volume 10.9 #H Monocytes # 0.5 Monocytes % 9.0 Neutrophils # 3.7 Neutrophils % 65.9 Nucleated Red Blood Cells # 0.0 Nucleated Red Blood Cells % 0.0 Platelet Count 149 Prothrombin Time 13.4 Prothrombin Time Ratio 1.0 Red Blood Count 3.88 L Red Cell Distribution Width 19.2 H White Blood Count 5.6 Test 07/09/16 12:22 07/09/16 16:38 Bedside Glucose 146 154 Medications Medications Current Medications Ondansetron HCl (Zofran Inj) 4 mg Q6H PRN IV NAUSEA AND/OR VOMITING Last administered on 07/06/16 11:46; Admin Dose 4 MG; Start 07/03/16 at 12:00 Acetaminophen (Tylenol Tab) 650 mg Q6H PRN PO PAIN LEVEL 1-3 OR FEVER Last administered on 07/08/16 22:37; Admin Dose 650 MG; Start 07/03/16 at 12:00 Acetaminophen (Tylenol Supp) [address] PAIN LEVEL 1-3 OR FEVER; Start 07/03/16 at 12:00 Acetaminophen/ Hydrocodone Bitart ([place] (5/325)) 1 tab Q6H PRN PO MODERATE PAIN LEVEL 4-6 Last administered on 07/06/16 01:51; Admin Dose 1 TAB; Start at 12:00 Acetaminophen/ Hydrocodone Bitart ([place] (5/325)) 2 tab Q6H PRN PO SEVERE PAIN LEVEL 7-10 Last administered on 07/09/16 14:04; Admin Dose 2 TAB; Start at 12:00 Morphine Sulfate (morphine) 2 mg Q4H PRN IV SEVERE PAIN LEVEL 7-10 Last administered on 07/09/16 15:18; Admin Dose 2 MG; Start 07/03/16 at 12:00 Docusate Sodium (Colace) 100 mg Q12H PRN PO CONSTIPATION; Start 07/03/16 at 12: 00 Magnesium Hydroxide (Milk Of Mag) 30 ml DAILY PRN PO CONSTIPATION Last administered on 07/08/16 12:36; Admin Dose 30 ML; Start 07/03/16 at 12:00 Bisacodyl (Dulcolax Supp) [address] CONSTIPATION; Start 07/03/16 at 12 :00 Hydralazine HCl (Apresoline) 10 mg Q4 PRN IV sbp>160; Start 07/03/16 at 12:00 Aripiprazole (Abilify) 2 mg DAILY PO Last administered on 07/09/16 09:36; Admin Dose 2 MG; Start 07/04/16 at 09:00 Aspirin (Halfprin) 81 mg DAILY PO Last administered on 07/09/16 09:35; Admin Dose 81 MG; Start 07/04/16 at 09:00 Benazepril HCl (Lotensin) 5 mg BID PO Last administered on 07/09/16 09:36; Admin Dose 5 MG; Start 07/03/16 at 21:00 Carbidopa/Levodopa (Sinemet (25/ 100)) 1 tab DAILY PO Last administered on 07/09 09:36; Admin Dose 1 TAB; Start 07/04/16 at 09:00 Carvedilol (Coreg) 12.5 mg BID PO Last administered on 07/09/16 09:36; Admin Dose 12.5 MG; Start 07/03/16 at 21:00 Clopidogrel Bisulfate (plaVIX) 75 mg DAILY PO Last administered on 07/09/16 09 :36; Admin Dose 75 MG; Start 07/04/16 at 09:00 Fluticasone Propionate (Flonase 0.05% Nasal) 1 spray BID NASAL Last administered on 07/09/16 09:37; Admin Dose 1 SPRAY; Start 07/03/16 at 21:00 Loratadine (Claritin) 10 mg DAILY PO Last administered on 07/09/16 09:36; Admin Dose 10 MG; Start 07/04/16 at 09:00 Meclizine HCl (Antivert) 25 mg Q12H PRN PO DIZZINESS; Start 07/03/16 at 14:30 Sertraline HCl (Zoloft) 50 mg DAILY PO Last administered on 07/09/16 09:35; Admin Dose 50 MG; Start 07/04/16 at 09:00 Atorvastatin Calcium 10 mg 10 mg QHS PO Last administered on 07/08/16 22:27; Admin Dose 10 MG; Start 07/03/16 at 21:00 Sodium Bicarbonate/ Dextrose (Na Bicarb/D5W) 1,000 ml @ 60 mls/hr [id number] IV Last administered on 07/09/16 15:18; Admin Dose 60 MLS/HR; Start 07/03/16 at 14 :30 Miscellaneous Information 1 ea NOTE XX ; Start 07/03/16 at 15:00 Glucose (Glutose) 15 gm Q15M PRN PO DECREASED GLUCOSE; Start 07/03/16 at 15:00 Glucose (Glutose) 22.5 gm Q15M PRN PO DECREASED GLUCOSE; Start 07/03/16 at 15: 00 Dextrose (D50w Syringe) 25 ml Q15M PRN IV DECREASED GLUCOSE; Start 07/03/16 at 15:00 Dextrose (D50w Syringe) 50 ml Q15M PRN IV DECREASED GLUCOSE; Start 07/03/16 at 15:00 Glucagon (Glucagen) 1 mg Q15M PRN IM DECREASED GLUCOSE; Start 07/03/16 at 15:00 Glucose (Glutose) 15 gm Q15M PRN BUCCAL DECREASED GLUCOSE; Start 07/03/16 at 15 :00 Citric Acid/ Sodium Citrate (Bicitra) 30 ml BID PO Last administered on 09:35; Admin Dose 30 ML; Start 07/04/16 at 21:00 Heparin Sodium (Porcine) (Heparin (5000 Units/0.5 ml)) 5,000 unit BID SC Last administered on 07/09/16 09:47; Admin Dose 5,000 UNIT; Start 07/05/16 at 21:00 Trimethoprim/ Sulfamethoxazole (Bactrim (Ds)) 1 tab DAILY PO Last administered on 07/09/16 09:36; Admin Dose 1 TAB; Start 07/06/16 at 14:00 Pantoprazole (Protonix Tab) 40 mg DAILY@06 PO Last administered on 07/09/16 06 :26; Admin Dose 40 MG; Start 07/07/16 at 06:00 Diagnostic Test (Pha) (Accucheck) 1 ea 02 XX ; Start 07/08/16 at 02:00 Alprazolam (Xanax) 0.25 mg BID PO Last administered on 07/09/16 09:36; Admin Dose 0.25 MG; Start 07/07/16 at 11:30 Al Hydrox/Mg Hydrox/Simethicone (Mag-Al Plus) 30 ml Q6H PRN PO GASTROINTESTINAL UPSET Last administered on 07/07/16t 11:35; Admin Dose 30 ML; Start 07/07/16 at 11:30 PERRY ALVARES MD Jul 09, 2016 20:24
[2016-07-09] MEDS: ATORVASTATIN 10 MG TAB PO SCH (21:37)
[2016-07-10] VITALS (12 sets, daily range): BP systolic 105–140; BP diastolic 55–67; PULSE 76–80; RESP 16–19
[2016-07-10] MEDS: ACCUCHECK XX SCH (02:00)
[2016-07-10] MEDS: BENAZEPRIL 5 MG TAB PO SCH ×3 (02:02→22:11)
[2016-07-10] MEDS: morphine 2 MG INJ IV PRN ×2 (03:29→16:56)
[2016-07-10] MEDS: SODIUM BICARBONATE (IV ADD) 100 MEQ in DEXTROSE 5% 900 ML IV SCH ×2 (03:40→16:58)
[2016-07-10] MEDS: PANTOPRAZOLE (EC) 40 MG TAB PO SCH (06:05)
[2016-07-10 07:22] LABS: ADD SCAN DIFF NO
[2016-07-10 07:31] LABS: BASOPHILS % 0.2 % (0.0-2.0); EOSINOPHILS # 0.2 10^3/ul (0.0-0.5); EOSINOPHILS % 3.4 % (0.0-7.0); HEMATOCRIT 32.2 % (37.0-47.0); HEMOGLOBIN 10.2 g/dl (12.0-16.0); LYMPHOCYTES # 0.9 10^3/ul (0.8-2.9); LYMPHOCYTES % 17.2 % (15.0-51.0); MEAN CORPUSCULAR HEMOGLOBIN 28.1 pg (29.0-33.0); MEAN CORPUSCULAR HGB CONC 31.7 g/dl (32.0-37.0); MEAN CORPUSCULAR VOLUME 88.7 fl (82.0-101.0); MEAN PLATELET VOLUME 10.7 fl (7.4-10.4); MONOCYTE # 0.5 10^3/ul (0.3-0.9); MONOCYTES % 9.6 % (0.0-11.0); NEUTROPHIL # 3.7 10^3/ul (1.6-7.5); NEUTROPHILS % 69.2 % (39.0-77.0); PLATELET COUNT 138 10^3/UL (140-415); RED BLOOD COUNT 3.63 10^6/ul (4.20-5.40); RED CELL DISTRIBUTION WIDTH 18.7 % (11.5-14.5); WHITE BLOOD COUNT 5.3 10^3/ul (4.8-10.8)
[2016-07-10] MEDS: INSULIN ASPART [NOVOLOG] 3 ML PEN SC SCH ×5 (07:42→22:14)
[2016-07-10 08:04] LABS: INR 0.92; PROTIME 12.4 Sec (12.2-14.2)
[2016-07-10 08:05] LABS: PARTIAL THROMBOPLASTIN TIME 34.4 Sec (25.0-35.0)
[2016-07-10 08:08] LABS: POTASSIUM 4.4 mmol/L (3.5-5.1)
[2016-07-10 08:11] LABS: CREATININE 2.52 mg/dl (0.44-1.00)
[2016-07-10 08:37] LABS: CALCIUM 7.7 mg/dl (8.4-10.2)
[2016-07-10] MEDS: ARIPIPRAZOLE 2 MG TAB PO SCH (09:18)
[2016-07-10] MEDS: CITRIC ACID/NA CITRATE 30 ML CUP PO SCH ×2 (09:18→22:27)
[2016-07-10] MEDS: CLOPIDOGREL 75 MG TAB PO SCH (09:19)
[2016-07-10] MEDS: HEPARIN 5,000 UNIT/0.5 ML SYG SC SCH ×2 (09:19→22:13)
[2016-07-10] MEDS: ASPIRIN (EC) 81 MG TAB PO SCH (09:19)
[2016-07-10] MEDS: SERTRALINE 50 MG TAB PO SCH (09:20)
[2016-07-10] MEDS: CARBIDOPA/LEVODOPA (25/100) TAB PO SCH (09:20)
[2016-07-10] MEDS: ALPRAZOLAM 0.25 MG TAB PO SCH ×2 (09:20→22:11)
[2016-07-10] MEDS: LORATADINE 10 MG TAB PO SCH (09:20)
[2016-07-10] MEDS: FLUTICASONE 0.05% 16 GM NAS SPRAY NASAL SCH ×2 (09:22→21:00)
[2016-07-10] MEDS: MAGNESIUM HYDROXIDE 30ML CUP PO PRN (12:59)
[2016-07-10] MEDS: DOCUSATE SODIUM 100 MG CAP PO PRN (12:59)
[2016-07-10] MEDS: TRIMETHOPRIM/SULFAMETHOX (DS) TAB PO SCH (12:59)
[2016-07-10] MEDS: MEGESTROL (40 MG/ML) 10ML CUP PO SCH (12:59)
--- NOTE | 2016-07-10 13:24 | PN ---
Date/Time of Note Date/Time of Note DATE: 07/10/16 TIME: 13:21 Assessment/Plan VTE Prophylaxis VTE Prophylaxis Intervention: heparin Lines/Catheters IV Catheter Type (from Nrs): Peripheral IV Urinary Cath still in place: Yes Reason Cath still needed: other (indicate) (hip fracture ) Assessment/Plan Assessment/Plan 1. Right hip fracture s/p fall at home . Orthopedic surgeon following. Continue with analgesics as needed. need surgical intervention 2. 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 Patient does follow-up with her physician Dr. Valenzuela as outpatient for this issue. She is status post radiation therapy reportedly 3 weeks ago. Patient follow-up with outpatient oncologist 3. YOLETTE 2/2 prerenal azotemia 4. Anemia likely of chronic disease. STable. Transfuse PRBC as needed 5. History of CAD with previous CABG. We'll resume patient's antiplatelet therapy 6. Essential hypertension. continue on antihypertensives and adjust as needed 7. History of dyslipidemia. Follow-up on fasting lipid panel. 8. Reported history of diabetes. A1c: 5.9. will monitor 9.. Influenza A positive. Continue on Tamiflu 10. E.Coli UTI on IV levaquin S/p Orthopedic Surgery consulation,-pt family is inclined to have hip surgery and as per orthoepdic Surgery Dr Byrd-plan for possible surgery here at [facility] Heparin for DVT prophyalxis awaiting Ski Instructor to evaluate for pre op clearance Subjective 24 Hr Interval Summary Free Text/Dictation no acute events,BP stable, awaiting cardiology evaluation Exam/Review of Systems Vital Signs Vitals Vital Signs Date Time Temp Pulse Resp B/P Pulse Ox O2 Delivery O2 Flow Rate FiO2 07/10/16 12:45 78 07/10/16 08:49 98.0 18 118/55 91 Intake and Output 07/09/16 07/09/16 07/10/16 15:00 23:00 07:00 Intake Total 500 ml 870 ml Output Total 1000 ml 1250 ml Balance -500 ml -380 ml Exam Neck: Supple nontender, no JVD Cardiac: S1, S2 auscultated, regular rhythm and rate Pulmonary: No coarse rhonchi or breathing auscultated GI: Abdomen soft nontender nondistended, bowel sounds active Extremities: Pain on palpation of bilateral lower extremity Skin: Clean dry and intact Neurologic: Alert to person place and time and situation Results Result Diagram: 07/10/16 0643 07/10/16 0643 Results 24 hrs Laboratory Tests Test 07/09/16 16:38 07/09/16 21:32 07/10/16 02:06 07/10/16 06:43 Bedside Glucose 154 185 158 Activated Partial Thromboplast Time 34.4 Anion Gap 18 H Basophils # 0.0 Basophils % 0.2 Blood Urea Nitrogen 39 H Calcium Level 7.7 L Carbon Dioxide Level 26 Chloride Level 100 Creatinine 2.52 H Eosinophils # 0.2 Eosinophils % 3.4 Glucose Level 184 Hematocrit 32.2 L Hemoglobin 10.2 L INR International Normalized Ratio 0.92 Lymphocytes # 0.9 Lymphocytes % 17.2 Mean Corpuscular Hemoglobin 28.1 L Mean Corpuscular Hemoglobin Concent 31.7 L Mean Corpuscular Volume 88.7 Mean Platelet Volume 10.7 H Monocytes # 0.5 Monocytes % 9.6 Neutrophils # 3.7 Neutrophils % 69.2 Nucleated Red Blood Cells # 0.0 Nucleated Red Blood Cells % 0.0 Platelet Count 138 L Potassium Level 4.4 Prothrombin Time 12.4 Prothrombin Time Ratio 1.0 Red Blood Count 3.63 L Red Cell Distribution Width 18.7 H Sodium Level 140 White Blood Count 5.3 Test 07/10/16 07:36 07/10/16 12:01 Bedside Glucose 143 111 Medications Medications Current Medications Ondansetron HCl (Zofran Inj) 4 mg Q6H PRN IV NAUSEA AND/OR VOMITING Last administered on 07/06/16 11:46; Admin Dose 4 MG; Start 07/03/16 at 12:00 Acetaminophen (Tylenol Tab) 650 mg Q6H PRN PO PAIN LEVEL 1-3 OR FEVER Last administered on 07/08/16 22:37; Admin Dose 650 MG; Start 07/03/16 at 12:00 Acetaminophen (Tylenol Supp) 650 mg Q6H PRN IN PAIN LEVEL 1-3 OR FEVER; Start 07/03/16 at 12:00 Acetaminophen/ Hydrocodone Bitart ([place] (5/325)) 1 tab Q6H PRN PO MODERATE PAIN LEVEL 4-6 Last administered on 07/06/16 01:51; Admin Dose 1 TAB; Start at 12:00 Acetaminophen/ Hydrocodone Bitart ([place] (5/325)) 2 tab Q6H PRN PO SEVERE PAIN LEVEL 7-10 Last administered on 07/09/16 14:04; Admin Dose 2 TAB; Start at 12:00 Morphine Sulfate (morphine) 2 mg Q4H PRN IV SEVERE PAIN LEVEL 7-10 Last administered on 07/10/16 03:29; Admin Dose 2 MG; Start 07/03/16 at 12:00 Docusate Sodium (Colace) 100 mg Q12H PRN PO CONSTIPATION Last administered on 12:59; Admin Dose 100 MG; Start 07/03/16 at 12:00 Magnesium Hydroxide (Milk Of Mag) 30 ml DAILY PRN PO CONSTIPATION Last administered on 07/10/16 12:59; Admin Dose 30 ML; Start 07/03/16 at 12:00 Bisacodyl (Dulcolax Supp) 10 mg DAILY PRN IN CONSTIPATION; Start 07/03/16 at 12 :00 Hydralazine HCl (Apresoline) 10 mg Q4 PRN IV sbp>160; Start 07/03/16 at 12:00 Aripiprazole (Abilify) 2 mg DAILY PO Last administered on 07/10/16 09:18; Admin Dose 2 MG; Start 07/04/16 at 09:00 Aspirin (Halfprin) 81 mg DAILY PO Last administered on 07/10/16 09:19; Admin Dose 81 MG; Start 07/04/16 at 09:00 Benazepril HCl (Lotensin) 5 mg BID PO Last administered on 07/10/16 09:21; Admin Dose 5 MG; Start 07/03/16 at 21:00 Carbidopa/Levodopa (Sinemet (25/ 100)) 1 tab DAILY PO Last administered on 07/10 09:20; Admin Dose 1 TAB; Start 07/04/16 at 09:00 Carvedilol (Coreg) 12.5 mg BID PO Last administered on 07/10/16 09:21; Admin Dose 12.5 MG; Start 07/03/16 at 21:00 Clopidogrel Bisulfate (plaVIX) 75 mg DAILY PO Last administered on 07/10/16 09 :19; Admin Dose 75 MG; Start 07/04/16 at 09:00 Fluticasone Propionate (Flonase 0.05% Nasal) 1 spray BID NASAL Last administered on 07/10/16 09:22; Admin Dose 1 SPRAY; Start 07/03/16 at 21:00 Loratadine (Claritin) 10 mg DAILY PO Last administered on 07/10/16 09:20; Admin Dose 10 MG; Start 07/04/16 at 09:00 Meclizine HCl (Antivert) 25 mg Q12H PRN PO DIZZINESS; Start 07/03/16 at 14:30 Sertraline HCl (Zoloft) 50 mg DAILY PO Last administered on 07/10/16 09:20; Admin Dose 50 MG; Start 07/04/16 at 09:00 Atorvastatin Calcium 10 mg 10 mg QHS PO Last administered on 07/09/16 21:37; Admin Dose 10 MG; Start 07/03/16 at 21:00 Sodium Bicarbonate/ Dextrose (Na Bicarb/D5W) 1,000 ml @ 60 mls/hr [id number] IV Last administered on 07/09/16 15:18; Admin Dose 60 MLS/HR; Start 07/03/16 at 14 :30 Miscellaneous Information 1 ea NOTE XX ; Start 07/03/16 at 15:00 Glucose (Glutose) 15 gm Q15M PRN PO DECREASED GLUCOSE; Start 07/03/16 at 15:00 Glucose (Glutose) 22.5 gm Q15M PRN PO DECREASED GLUCOSE; Start 07/03/16 at 15: 00 Dextrose (D50w Syringe) 25 ml Q15M PRN IV DECREASED GLUCOSE; Start 07/03/16 at 15:00 Dextrose (D50w Syringe) 50 ml Q15M PRN IV DECREASED GLUCOSE; Start 07/03/16 at 15:00 Glucagon (Glucagen) 1 mg Q15M PRN IM DECREASED GLUCOSE; Start 07/03/16 at 15:00 Glucose (Glutose) 15 gm Q15M PRN BUCCAL DECREASED GLUCOSE; Start 07/03/16 at 15 :00 Citric Acid/ Sodium Citrate (Bicitra) 30 ml BID PO Last administered on 09:18; Admin Dose 30 ML; Start 07/04/16 at 21:00 Heparin Sodium (Porcine) (Heparin (5000 Units/0.5 ml)) 5,000 unit BID SC Last administered on 07/10/16 09:19; Admin Dose 5,000 UNIT; Start 07/05/16 at 21:00 Trimethoprim/ Sulfamethoxazole (Bactrim (Ds)) 1 tab DAILY PO Last administered on 07/10/16 12:59; Admin Dose 1 TAB; Start 07/06/16 at 14:00 Pantoprazole (Protonix Tab) 40 mg DAILY@06 PO Last administered on 07/10/16 06 :05; Admin Dose 40 MG; Start 07/07/16 at 06:00 Diagnostic Test (Pha) (Accucheck) 1 02 XX ; Start 07/08/16 at 02:00 Alprazolam (Xanax) 0.25 mg BID PO Last administered on 07/10/16 09:20; Admin Dose 0.25 MG; Start 07/07/16 at 11:30 Al Hydrox/Mg Hydrox/Simethicone (Mag-Al Plus) 30 ml Q6H PRN PO GASTROINTESTINAL UPSET Last administered on 07/07/16 11:35; Admin Dose 30 ML; Start 07/07/16 at 11:30 MEHDI MISTRY MD Jul 10, 2016 13:24
--- NOTE | 2016-07-10 14:23 | CONS ---
Date/Time of Note Date/Time of Note DATE: 07/10/16 TIME: 14:19 Assessment/Plan Assessment/Plan Chief Complaint/Hosp Course Pre-op evaluation: The patient is to undergo moderate risk surgery. She has a h/ o cardiac disease including CABG but does not have active angina and in general is able to do her ADLs without symptoms. Her EF is low normal at 50% and she does not have significant . She is at intermediate risk for surgery. Hyperkalemia: resolved s/p mechanical fall with hip fracture: awaiting likely surgery Chronic renal failure: has been fluctuating CAD s/p CABG: no active ischemia Breast ca with bone mets Dementia -no further testing indicated. Proceed with surgery as planned. -if having surgery ok to hold plavix (can restart after or defer to outpt film maker), preferably continue ASA -continue coreg, benazapril -will follow post-op as needed Problems: Consultation Date/Type/Reason Admit Date/Time Jul 03, 2016 at 11:46 Initial Consult Date 07/03/16 Type of Consultation: Cardiology Referring Provider: JUNI NUNEZ 24 HR Interval Summary Free Text/Dictation Since I last saw her, she has been treated for a UTI. She is now being considered for hip surgery for which I am reconsulted for pre-operative evaluation. Pt remains asymptomatic and denies CP or SOB. Exam/Review of Systems Vital Signs Vitals Vital Signs Date Time Temp Pulse Resp B/P Pulse Ox O2 Delivery O2 Flow Rate FiO2 07/10/16 12:45 78 07/10/16 08:49 98.0 18 118/55 91 Intake and Output 07/09/16 07/09/16 07/10/16 15:00 23:00 07:00 Intake Total 500 ml 870 ml Output Total 1000 ml 1250 ml Balance -500 ml -380 ml Exam Constitutional: alert, oriented Psych: no complaints Neck: No jvd Respiratory: clear to auscultation, diminished breath sounds, No crackles/rales Cardiovascular: regular rate and rhythm, systolic murmur (2/6 mid peaking GERRY) , No edema Gastrointestinal: non-tender, soft Neurological: nl mental status, nl speech Results Result Diagram: 07/10/16 0643 07/10/16 0643 Results 24 hrs Laboratory Tests Test 07/09/16 16:38 07/09/16 21:32 07/10/16 02:06 07/10/16 06:43 Bedside Glucose 154 185 158 Activated Partial Thromboplast Time 34.4 Anion Gap 18 H Basophils # 0.0 Basophils % 0.2 Blood Urea Nitrogen 39 H Calcium Level 7.7 L Carbon Dioxide Level 26 Chloride Level 100 Creatinine 2.52 H Eosinophils # 0.2 Eosinophils % 3.4 Glucose Level 184 Hematocrit 32.2 L Hemoglobin 10.2 L INR International Normalized Ratio 0.92 Lymphocytes # 0.9 Lymphocytes % 17.2 Mean Corpuscular Hemoglobin 28.1 L Mean Corpuscular Hemoglobin Concent 31.7 L Mean Corpuscular Volume 88.7 Mean Platelet Volume 10.7 H Monocytes # 0.5 Monocytes % 9.6 Neutrophils # 3.7 Neutrophils % 69.2 Nucleated Red Blood Cells # 0.0 Nucleated Red Blood Cells % 0.0 Platelet Count 138 L Potassium Level 4.4 Prothrombin Time 12.4 Prothrombin Time Ratio 1.0 Red Blood Count 3.63 L Red Cell Distribution Width 18.7 H Sodium Level 140 White Blood Count 5.3 Test 07/10/16 07:36 07/10/16 12:01 Bedside Glucose 143 111 Medications Medications Current Medications Ondansetron HCl (Zofran Inj) 4 mg Q6H PRN IV NAUSEA AND/OR VOMITING Last administered on 07/06/16 11:46; Admin Dose 4 MG; Start 07/03/16 at 12:00 Acetaminophen (Tylenol Tab) 650 mg Q6H PRN PO PAIN LEVEL 1-3 OR FEVER Last administered on 07/08/16 22:37; Admin Dose 650 MG; Start 07/03/16 at 12:00 Acetaminophen (Tylenol Supp) 650 mg Q6H PRN [place] PAIN LEVEL 1-3 OR FEVER; Start 07/03/16 at 12:00 Acetaminophen/ Hydrocodone Bitart ([place] (5/325)) 1 tab Q6H PRN PO MODERATE PAIN LEVEL 4-6 Last administered on 07/06/16 01:51; Admin Dose 1 TAB; Start at 12:00 Acetaminophen/ Hydrocodone Bitart ([place] (5/325)) 2 tab Q6H PRN PO SEVERE PAIN LEVEL 7-10 Last administered on 07/09/16 14:04; Admin Dose 2 TAB; Start at 12:00 Morphine Sulfate (morphine) 2 mg Q4H PRN IV SEVERE PAIN LEVEL 7-10 Last administered on 07/10/16 03:29; Admin Dose 2 MG; Start 07/03/16 at 12:00 Docusate Sodium (Colace) 100 mg Q12H PRN PO CONSTIPATION Last administered on 12:59; Admin Dose 100 MG; Start 07/03/16 at 12:00 Magnesium Hydroxide (Milk Of Mag) 30 ml DAILY PRN PO CONSTIPATION Last administered on 07/10/16 12:59; Admin Dose 30 ML; Start 07/03/16 at 12:00 Bisacodyl (Dulcolax Supp) 10 mg DAILY PRN [place] CONSTIPATION; Start 07/03/16 at 12 :00 Hydralazine HCl (Apresoline) 10 mg Q4 PRN IV sbp>160; Start 07/03/16 at 12:00 Aripiprazole (Abilify) 2 mg DAILY PO Last administered on 07/10/16 09:18; Admin Dose 2 MG; Start 07/04/16 at 09:00 Aspirin (Halfprin) 81 mg DAILY PO Last administered on 07/10/16 09:19; Admin Dose 81 MG; Start 07/04/16 at 09:00 Benazepril HCl (Lotensin) 5 mg BID PO Last administered on 07/10/16 09:21; Admin Dose 5 MG; Start 07/03/16 at 21:00 Carbidopa/Levodopa (Sinemet (25/ 100)) 1 tab DAILY PO Last administered on 07/10 09:20; Admin Dose 1 TAB; Start 07/04/16 at 09:00 Carvedilol (Coreg) 12.5 mg BID PO Last administered on 07/10/16 09:21; Admin Dose 12.5 MG; Start 07/03/16 at 21:00 Clopidogrel Bisulfate (plaVIX) 75 mg DAILY PO Last administered on 07/10/16 09 :19; Admin Dose 75 MG; Start 07/04/16 at 09:00 Fluticasone Propionate (Flonase 0.05% Nasal) 1 spray BID NASAL Last administered on 07/10/16 09:22; Admin Dose 1 SPRAY; Start 07/03/16 at 21:00 Loratadine (Claritin) 10 mg DAILY PO Last administered on 07/10/16 09:20; Admin Dose 10 MG; Start 07/04/16 at 09:00 Meclizine HCl (Antivert) 25 mg Q12H PRN PO DIZZINESS; Start 07/03/16 at 14:30 Sertraline HCl (Zoloft) 50 mg DAILY PO Last administered on 07/10/16 09:20; Admin Dose 50 MG; Start 07/04/16 at 09:00 Atorvastatin Calcium 10 mg 10 mg QHS PO Last administered on 07/09/16 21:37; Admin Dose 10 MG; Start 07/03/16 at 21:00 Sodium Bicarbonate/ Dextrose (Na Bicarb/D5W) 1,000 ml @ 60 mls/hr [id number] IV Last administered on 07/09/16 15:18; Admin Dose 60 MLS/HR; Start 07/03/16 at 14 :30 Miscellaneous Information 1 ea NOTE XX ; Start 07/03/16 at 15:00 Glucose (Glutose) 15 gm Q15M PRN PO DECREASED GLUCOSE; Start 07/03/16 at 15:00 Glucose (Glutose) 22.5 gm Q15M PRN PO DECREASED GLUCOSE; Start 07/03/16 at 15: 00 Dextrose (D50w Syringe) 25 ml Q15M PRN IV DECREASED GLUCOSE; Start 07/03/16 at 15:00 Dextrose (D50w Syringe) 50 ml Q15M PRN IV DECREASED GLUCOSE; Start 07/03/16 at 15:00 Glucagon (Glucagen) 1 mg Q15M PRN IM DECREASED GLUCOSE; Start 07/03/16 at 15:00 Glucose (Glutose) 15 gm Q15M PRN BUCCAL DECREASED GLUCOSE; Start 07/03/16 at 15 :00 Citric Acid/ Sodium Citrate (Bicitra) 30 ml BID PO Last administered on 09:18; Admin Dose 30 ML; Start 07/04/16 at 21:00 Heparin Sodium (Porcine) (Heparin (5000 Units/0.5 ml)) 5,000 unit BID SC Last administered on 07/10/16 09:19; Admin Dose 5,000 UNIT; Start 07/05/16 at 21:00 Trimethoprim/ Sulfamethoxazole (Bactrim (Ds)) 1 tab DAILY PO Last administered on 07/10/16 12:59; Admin Dose 1 TAB; Start 07/06/16 at 14:00 Pantoprazole (Protonix Tab) 40 mg DAILY@06 PO Last administered on 07/10/16 06 :05; Admin Dose 40 MG; Start 07/07/16 at 06:00 Diagnostic Test (Pha) (Accucheck) 1 XX ; Start 07/08/16 at 02:00 Alprazolam (Xanax) 0.25 mg BID PO Last administered on 07/10/16 09:20; Admin Dose 0.25 MG; Start 07/07/16 at 11:30 Al Hydrox/Mg Hydrox/Simethicone (Mag-Al Plus) 30 ml Q6H PRN PO GASTROINTESTINAL UPSET Last administered on 07/07/16 11:35; Admin Dose 30 ML; Start 07/07/16 at 11:30 CINDY MACEDO Jul 10, 2016 14:23
--- NOTE | 2016-07-10 21:30 | CONS ---
Date/Time of Note Date/Time of Note DATE: 07/10/16 TIME: 21:28 Assessment/Plan Assessment/Plan Chief Complaint/Hosp Course IMPRESSION: 1. Patient has adxat-[id number] kidney disease, acute renal failure due to prerenal azotemia.BETTER 2. Patient has underlying chronic kidney disease, possibly hypertensive nephrosclerosis, and possible diabetic nephropathy. 3. Hyperkalemia, worsened by aldosterone antagonist.BETTER 4. Anemia of possibly chronic kidney disease. 5. Metabolic acidosis. better 6. The patient also is status post fall with right hip fracture. PER ORTHO 7. Coronary artery disease with coronary artery bypass graft. 8. History of hysterectomy. 9. History of breast cancer, surgery on treatment. 10. Underlying chronic tubular interstitial nephritis. 11. proteinuria. 12 UTI plan ck bmp bicitra renal stable BMP Problems: Consultation Date/Type/Reason Admit Date/Time Jul 03, 2016 at 11:46 Initial Consult Date 07/03/16 Type of Consultation: RENAL Referring Provider: JUNI NUNEZ 24 HR Interval Summary Constitutional: no complaints Exam/Review of Systems Vital Signs Vitals Vital Signs Date Time Temp Pulse Resp B/P Pulse Ox O2 Delivery O2 Flow Rate FiO2 07/10/16 16:53 98.5 83 18 105/56 94 Intake and Output 07/09/16 07/09/16 07/10/16 15:00 23:00 07:00 Intake Total 500 ml 870 ml Output Total 1000 ml 1250 ml Balance -500 ml -380 ml Exam Respiratory: clear to auscultation Cardiovascular: regular rate and rhythm Gastrointestinal: soft Musculoskeletal: nl extremities to inspection Extremities: normal pulses, No edema Results Result Diagram: 07/10/16 0643 07/10/16 0643 Results 24 hrs Laboratory Tests Test 07/09/16 21:32 07/10/16 02:06 07/10/16 06:43 07/10/16 07:36 Bedside Glucose 185 158 143 Activated Partial Thromboplast Time 34.4 Anion Gap 18 H Basophils # 0.0 Basophils % 0.2 Blood Urea Nitrogen 39 H Calcium Level 7.7 L Carbon Dioxide Level 26 Chloride Level 100 Creatinine 2.52 H Eosinophils # 0.2 Eosinophils % 3.4 Glucose Level 184 Hematocrit 32.2 L Hemoglobin 10.2 L INR International Normalized Ratio 0.92 Lymphocytes # 0.9 Lymphocytes % 17.2 Mean Corpuscular Hemoglobin 28.1 L Mean Corpuscular Hemoglobin Concent 31.7 L Mean Corpuscular Volume 88.7 Mean Platelet Volume 10.7 H Monocytes # 0.5 Monocytes % 9.6 Neutrophils # 3.7 Neutrophils % 69.2 Nucleated Red Blood Cells # 0.0 Nucleated Red Blood Cells % 0.0 Platelet Count 138 L Potassium Level 4.4 Prothrombin Time 12.4 Prothrombin Time Ratio 1.0 Red Blood Count 3.63 L Red Cell Distribution Width 18.7 H Sodium Level 140 White Blood Count 5.3 Test 07/10/16 12:01 07/10/16 16:52 07/10/16 21:15 Bedside Glucose 111 138 207 Medications Medications Current Medications Ondansetron HCl (Zofran Inj) 4 mg Q6H PRN IV NAUSEA AND/OR VOMITING Last administered on 07/06/16 11:46; Admin Dose 4 MG; Start 07/03/16 at 12:00 Acetaminophen (Tylenol Tab) 650 mg Q6H PRN PO PAIN LEVEL 1-3 OR FEVER Last administered on 07/08/16 22:37; Admin Dose 650 MG; Start 07/03/16 at 12:00 Acetaminophen (Tylenol Supp) 650 mg Q6H PRN [place] PAIN LEVEL 1-3 OR FEVER; Start 07/03/16 at 12:00 Acetaminophen/ Hydrocodone Bitart ([place] (5/325)) 1 tab Q6H PRN PO MODERATE PAIN LEVEL 4-6 Last administered on 07/06/16 01:51; Admin Dose 1 TAB; Start at 12:00 Acetaminophen/ Hydrocodone Bitart ([place] (5/325)) 2 tab Q6H PRN PO SEVERE PAIN LEVEL 7-10 Last administered on 07/09/16 14:04; Admin Dose 2 TAB; Start at 12:00 Morphine Sulfate (morphine) 2 mg Q4H PRN IV SEVERE PAIN LEVEL 7-10 Last administered on 07/10/16 16:56; Admin Dose 2 MG; Start 07/03/16 at 12:00 Docusate Sodium (Colace) 100 mg Q12H PRN PO CONSTIPATION Last administered on 12:59; Admin Dose 100 MG; Start 07/03/16 at 12:00 Magnesium Hydroxide (Milk Of Mag) 30 ml DAILY PRN PO CONSTIPATION Last administered on 07/10/16 12:59; Admin Dose 30 ML; Start 07/03/16 at 12:00 Bisacodyl (Dulcolax Supp) 10 mg DAILY PRN [place] CONSTIPATION; Start 07/03/16 at 12 :00 Hydralazine HCl (Apresoline) 10 mg Q4 PRN IV sbp>160; Start 07/03/16 at 12:00 Aripiprazole (Abilify) 2 mg DAILY PO Last administered on 07/10/16 09:18; Admin Dose 2 MG; Start 07/04/16 at 09:00 Aspirin (Halfprin) 81 mg DAILY PO Last administered on 07/10/16 09:19; Admin Dose 81 MG; Start 07/04/16 at 09:00 Benazepril HCl (Lotensin) 5 mg BID PO Last administered on 07/10/16 09:21; Admin Dose 5 MG; Start 07/03/16 at 21:00 Carbidopa/Levodopa (Sinemet (25/ 100)) 1 tab DAILY PO Last administered on 07/10 09:20; Admin Dose 1 TAB; Start 07/04/16 at 09:00 Carvedilol (Coreg) 12.5 mg BID PO Last administered on 07/10/16 09:21; Admin Dose 12.5 MG; Start 07/03/16 at 21:00 Clopidogrel Bisulfate (plaVIX) 75 mg DAILY PO Last administered on 07/10/16 09 :19; Admin Dose 75 MG; Start 07/04/16 at 09:00 Fluticasone Propionate (Flonase 0.05% Nasal) 1 spray BID NASAL Last administered on 07/10/16 09:22; Admin Dose 1 SPRAY; Start 07/03/16 at 21:00 Loratadine (Claritin) 10 mg DAILY PO Last administered on 07/10/16 09:20; Admin Dose 10 MG; Start 07/04/16 at 09:00 Meclizine HCl (Antivert) 25 mg Q12H PRN PO DIZZINESS; Start 07/03/16 at 14:30 Sertraline HCl (Zoloft) 50 mg DAILY PO Last administered on 07/10/16 09:20; Admin Dose 50 MG; Start 07/04/16 at 09:00 Atorvastatin Calcium 10 mg 10 mg QHS PO Last administered on 07/09/16 21:37; Admin Dose 10 MG; Start 07/03/16 at 21:00 Sodium Bicarbonate/ Dextrose (Na Bicarb/D5W) 1,000 ml @ 60 mls/hr [id number] IV Last administered on 07/10/16 16:58; Admin Dose 60 MLS/HR; Start 07/03/16 at 14 :30 Miscellaneous Information 1 ea NOTE XX ; Start 07/03/16 at 15:00 Glucose (Glutose) 15 gm Q15M PRN PO DECREASED GLUCOSE; Start 07/03/16 at 15:00 Glucose (Glutose) 22.5 gm Q15M PRN PO DECREASED GLUCOSE; Start 07/03/16 at 15: 00 Dextrose (D50w Syringe) 25 ml Q15M PRN IV DECREASED GLUCOSE; Start 07/03/16 at 15:00 Dextrose (D50w Syringe) 50 ml Q15M PRN IV DECREASED GLUCOSE; Start 07/03/16 at 15:00 Glucagon (Glucagen) 1 mg Q15M PRN IM DECREASED GLUCOSE; Start 07/03/16 at 15:00 Glucose (Glutose) 15 gm Q15M PRN BUCCAL DECREASED GLUCOSE; Start 07/03/16 at 15 :00 Citric Acid/ Sodium Citrate (Bicitra) 30 ml BID PO Last administered on 09:18; Admin Dose 30 ML; Start 07/04/16 at 21:00 Heparin Sodium (Porcine) (Heparin (5000 Units/0.5 ml)) 5,000 unit BID SC Last administered on 07/10/16 09:19; Admin Dose 5,000 UNIT; Start 07/05/16 at 21:00 Trimethoprim/ Sulfamethoxazole (Bactrim (Ds)) 1 tab DAILY PO Last administered on 07/10/16 12:59; Admin Dose 1 TAB; Start 07/06/16 at 14:00 Pantoprazole (Protonix Tab) 40 mg DAILY@06 PO Last administered on 07/10/16 06 :05; Admin Dose 40 MG; Start 07/07/16 at 06:00 Diagnostic Test (Pha) (Accucheck) 1 ea 02 XX ; Start 07/08/16 at 02:00 Alprazolam (Xanax) 0.25 mg BID PO Last administered on 07/10/16 09:20; Admin Dose 0.25 MG; Start 07/07/16 at 11:30 Al Hydrox/Mg Hydrox/Simethicone (Mag-Al Plus) 30 ml Q6H PRN PO GASTROINTESTINAL UPSET Last administered on 07/07/16 11:35; Admin Dose 30 ML; Start 07/07/16 at 11:30 PERYR ALVARES MD Jul 10, 2016 21:30
[2016-07-10] MEDS: ATORVASTATIN 10 MG TAB PO SCH (22:10)
[2016-07-11] VITALS (12 sets, daily range): BP systolic 116–125; BP diastolic 57–61; PULSE 76–85; RESP 18–19
[2016-07-11] MEDS: morphine 2 MG INJ IV PRN (00:28)
[2016-07-11] MEDS: ACCUCHECK XX SCH (02:03)
[2016-07-11] MEDS: PANTOPRAZOLE (EC) 40 MG TAB PO SCH (07:09)
[2016-07-11 08:17] LABS: POTASSIUM 5.8 mmol/L (3.5-5.1)
[2016-07-11 08:19] LABS: CREATININE 2.66 mg/dl (0.44-1.00)
[2016-07-11 08:20] LABS: CALCIUM 8.5 mg/dl (8.4-10.2)
[2016-07-11] MEDS ORDERED: NA POLYST SULFON 15 GM/60 ML BTL PO STA (09:20)
[2016-07-11] MEDS: INSULIN ASPART [NOVOLOG] 3 ML PEN SC SCH ×4 (09:37→20:26)
[2016-07-11] MEDS: CITRIC ACID/NA CITRATE 30 ML CUP PO SCH ×2 (09:38→20:19)
[2016-07-11] MEDS: HEPARIN 5,000 UNIT/0.5 ML SYG SC SCH ×2 (09:38→20:25)
[2016-07-11] MEDS: ASPIRIN (EC) 81 MG TAB PO SCH (09:38)
[2016-07-11] MEDS: FLUTICASONE 0.05% 16 GM NAS SPRAY NASAL SCH (09:38)
[2016-07-11] MEDS: ARIPIPRAZOLE 2 MG TAB PO SCH (09:38)
[2016-07-11] MEDS: CLOPIDOGREL 75 MG TAB PO SCH (09:39)
[2016-07-11] MEDS: ALPRAZOLAM 0.25 MG TAB PO SCH ×2 (09:39→20:19)
[2016-07-11] MEDS: CARBIDOPA/LEVODOPA (25/100) TAB PO SCH (09:39)
[2016-07-11] MEDS: SERTRALINE 50 MG TAB PO SCH (09:40)
[2016-07-11] MEDS: LORATADINE 10 MG TAB PO SCH (09:40)
[2016-07-11] MEDS: BENAZEPRIL 5 MG TAB PO SCH ×2 (09:45→20:20)
[2016-07-11] MEDS: MEGESTROL (40 MG/ML) 10ML CUP PO SCH (11:30)
--- NOTE | 2016-07-11 12:35 | CONS ---
Date/Time of Note Date/Time of Note DATE: 07/11/16 TIME: 12:34 Assessment/Plan Assessment/Plan Chief Complaint/Hosp Course IMPRESSION: 1. Patient has [id number] kidney disease, acute renal failure due to prerenal azotemia.BETTER 2. Patient has underlying chronic kidney disease, possibly hypertensive nephrosclerosis, and possible diabetic nephropathy. 3. Hyperkalemia, worsened by aldosterone antagonist.NOW SEPTRA WILL DC THAT 4. Anemia of possibly chronic kidney disease. 5. Metabolic acidosis. better 6. The patient also is status post fall with right hip fracture. PER ORTHO 7. Coronary artery disease with coronary artery bypass graft. 8. History of hysterectomy. 9. History of breast cancer, surgery on treatment. 10. Underlying chronic tubular interstitial nephritis. 11. proteinuria. 12 UTI plan ck bmp DC SEPTRA BMP Problems: Consultation Date/Type/Reason Admit Date/Time Jul 03, 2016 at 11:46 Initial Consult Date 07/03/16 Type of Consultation: RENAL Referring Provider: JUNI NUNEZ 24 HR Interval Summary Subjective hx not possible: other Constitutional: No chills Exam/Review of Systems Vital Signs Vitals Vital Signs Date Time Temp Pulse Resp B/P Pulse Ox O2 Delivery O2 Flow Rate FiO2 07/11/16 12:26 76 07/11/16 12:00 98.0 19 123/61 96 Intake and Output 07/10/16 07/10/16 07/11/16 15:00 23:00 07:00 Intake Total 720 ml Output Total 1200 ml Balance -480 ml Exam Neck: supple Respiratory: clear to auscultation Cardiovascular: regular rate and rhythm Gastrointestinal: soft Musculoskeletal: nl extremities to inspection Extremities: normal pulses Results Result Diagram: 07/10/16 0643 07/11/16 0700 Results 24 hrs Laboratory Tests Test 07/10/16 16:52 07/10/16 21:15 07/11/16 01:08 07/11/16 07:00 Bedside Glucose 138 207 200 Anion Gap 20 H Blood Urea Nitrogen 42 H Calcium Level 8.5 Carbon Dioxide Level 26 Chloride Level 103 Creatinine 2.66 H Glucose Level 156 Potassium Level 5.8 H Sodium Level 143 Test 07/11/16 07:51 07/11/16 11:35 Bedside Glucose 166 185 Medications Medications Current Medications Ondansetron HCl (Zofran Inj) 4 mg Q6H PRN IV NAUSEA AND/OR VOMITING Last administered on 07/06/16 11:46; Admin Dose 4 MG; Start 07/03/16 at 12:00 Acetaminophen (Tylenol Tab) 650 mg Q6H PRN PO PAIN LEVEL 1-3 OR FEVER Last administered on 07/08/16 22:37; Admin Dose 650 MG; Start 07/03/16 at 12:00 Acetaminophen (Tylenol Supp) 650 mg Q6H PRN [place] PAIN LEVEL 1-3 OR FEVER; Start 07/03/16 at 12:00 Acetaminophen/ Hydrocodone Bitart ([place] (5/325)) 1 tab Q6H PRN PO MODERATE PAIN LEVEL 4-6 Last administered on 07/06/16 01:51; Admin Dose 1 TAB; Start at 12:00 Acetaminophen/ Hydrocodone Bitart ([place] (5/325)) 2 tab Q6H PRN PO SEVERE PAIN LEVEL 7-10 Last administered on 07/09/16 14:04; Admin Dose 2 TAB; Start at 12:00 Morphine Sulfate (morphine) 2 mg Q4H PRN IV SEVERE PAIN LEVEL 7-10 Last administered on 07/11/16 00:28; Admin Dose 2 MG; Start 07/03/16 at 12:00 Docusate Sodium (Colace) 100 mg Q12H PRN PO CONSTIPATION Last administered on 12:59; Admin Dose 100 MG; Start 07/03/16 at 12:00 Magnesium Hydroxide (Milk Of Mag) 30 ml DAILY PRN PO CONSTIPATION Last administered on 07/10/16 12:59; Admin Dose 30 ML; Start 07/03/16 at 12:00 Bisacodyl (Dulcolax Supp) 10 mg DAILY PRN [place] CONSTIPATION; Start 07/03/16 at 12 :00 Hydralazine HCl (Apresoline) 10 mg Q4 PRN IV sbp>160; Start 07/03/16 at 12:00 Aripiprazole (Abilify) 2 mg DAILY PO Last administered on 07/11/16 09:38; Admin Dose 2 MG; Start 07/04/16 at 09:00 Aspirin (Halfprin) 81 mg DAILY PO Last administered on 07/11/16 09:38; Admin Dose 81 MG; Start 07/04/16 at 09:00 Benazepril HCl (Lotensin) 5 mg BID PO Last administered on 07/11/16 09:45; Admin Dose 5 MG; Start 07/03/16 at 21:00 Carbidopa/Levodopa (Sinemet (25/ 100)) 1 tab DAILY PO Last administered on 07/11 09:39; Admin Dose 1 TAB; Start 07/04/16 at 09:00 Carvedilol (Coreg) 12.5 mg BID PO Last administered on 07/11/16 09:39; Admin Dose 12.5 MG; Start 07/03/16 at 21:00 Clopidogrel Bisulfate (plaVIX) 75 mg DAILY PO Last administered on 07/11/16 09 :39; Admin Dose 75 MG; Start 07/04/16 at 09:00 Fluticasone Propionate (Flonase 0.05% Nasal) 1 spray BID NASAL Last administered on 07/11/16 09:38; Admin Dose 1 SPRAY; Start 07/03/16 at 21:00 Loratadine (Claritin) 10 mg DAILY PO Last administered on 07/11/16 09:40; Admin Dose 10 MG; Start 07/04/16 at 09:00 Meclizine HCl (Antivert) 25 mg Q12H PRN PO DIZZINESS; Start 07/03/16 at 14:30 Sertraline HCl (Zoloft) 50 mg DAILY PO Last administered on 07/11/16 09:40; Admin Dose 50 MG; Start 07/04/16 at 09:00 Atorvastatin Calcium (Lipitor) 10 mg QHS PO Last administered on 07/10/16 22: 10; Admin Dose 10 MG; Start 07/03/16 at 21:00 Miscellaneous Information 1 ea NOTE XX ; Start 07/03/16 at 15:00 Glucose (Glutose) 15 gm Q15M PRN PO DECREASED GLUCOSE; Start 07/03/16 at 15:00 Glucose (Glutose) 22.5 gm Q15M PRN PO DECREASED GLUCOSE; Start 07/03/16 at 15: 00 Dextrose (D50w Syringe) 25 ml Q15M PRN IV DECREASED GLUCOSE; Start 07/03/16 at 15:00 Dextrose (D50w Syringe) 50 ml Q15M PRN IV DECREASED GLUCOSE; Start 07/03/16 at 15:00 Glucagon (Glucagen) 1 mg Q15M PRN IM DECREASED GLUCOSE; Start 07/03/16 at 15:00 Glucose (Glutose) 15 gm Q15M PRN BUCCAL DECREASED GLUCOSE; Start 07/03/16 at 15 :00 Citric Acid/ Sodium Citrate (Bicitra) 30 ml BID PO Last administered on 09:38; Admin Dose 30 ML; Start 07/04/16 at 21:00 Heparin Sodium (Porcine) (Heparin (5000 Units/0.5 ml)) 5,000 unit BID SC Last administered on 07/11/16 09:38; Admin Dose 5,000 UNIT; Start 07/05/16 at 21:00 Pantoprazole (Protonix Tab) 40 mg DAILY@06 PO Last administered on 07/11/16 07 :09; Admin Dose 40 MG; Start 07/07/16 at 06:00 Diagnostic Test (Pha) (Accucheck) 1 ea 02 XX Last administered on 07/11/16 02: 03; Admin Dose 1 EA; Start 07/08/16 at 02:00 Alprazolam (Xanax) 0.25 mg BID PO Last administered on 07/11/16 09:39; Admin Dose 0.25 MG; Start 07/07/16 at 11:30 Al Hydrox/Mg Hydrox/Simethicone (Mag-Al Plus) 30 ml Q6H PRN PO GASTROINTESTINAL UPSET Last administered on 07/07/16 11:35; Admin Dose 30 ML; Start 07/07/16 at 11:30 PERRY ALVARES MD Jul 11, 2016 12:35
--- NOTE | 2016-07-11 12:58 | PN ---
Date/Time of Note Date/Time of Note DATE: 07/11/16 TIME: 12:56 Assessment/Plan VTE Prophylaxis VTE Prophylaxis Intervention: heparin Lines/Catheters IV [facility]ter Type (from [facility]): Peripheral IV Urinary Cath still in place: Yes Reason Cath still needed: other (indicate) (hip fracture ) Assessment/Plan Assessment/Plan 1. Right hip fracture s/p fall at home . Orthopedic surgeon following. Continue with analgesics as needed. need surgical intervention 2. 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 Patient does follow-up with her physician Dr. Valenzuela as outpatient for this issue. She is status post radiation therapy reportedly 3 weeks ago. Patient follow-up with outpatient oncologist 3. YOLETTE 2/2 prerenal azotemia 4. Anemia likely of chronic disease. STable. Transfuse PRBC as needed 5. History of CAD with previous CABG. We'll resume patient's antiplatelet therapy 6. Essential hypertension. continue on antihypertensives and adjust as needed 7. History of dyslipidemia. Follow-up on fasting lipid panel. 8. Reported history of diabetes. A1c: 5.9. will monitor 9.. Influenza A positive. Continue on Tamiflu 10. E.Coli UTI on IV levaquin S/p Orthopedic Surgery consulation,-Hip surgery plan as per Orthopedic surgery Bactrim discontinued due o hyperkalemia, BP stable Heparin for DVT prophyalxis s/p Cardiology clearane, cleraed for surgery Subjective 24 Hr Interval Summary Free Text/Dictation K went up, Cr 2.6, pt cleared for hip surgery by cardiology Exam/Review of Systems Vital Signs Vitals Vital Signs Date Time Temp Pulse Resp B/P Pulse Ox O2 Delivery O2 Flow Rate FiO2 07/11/16 12:26 76 07/11/16 12:00 98.0 19 123/61 96 Intake and Output 07/10/16 07/10/16 07/11/16 15:00 23:00 07:00 Intake Total 720 ml Output Total 1200 ml Balance -480 ml Exam Neck: Supple nontender, no JVD Cardiac: S1, S2 auscultated, regular rhythm and rate Pulmonary: No coarse rhonchi or breathing auscultated GI: Abdomen soft nontender nondistended, bowel sounds active Extremities: Pain on palpation of bilateral lower extremity Skin: Clean dry and intact Neurologic: Alert to person place and time and situation Results Result Diagram: 07/10/16 0643 07/11/16 0700 Results 24 hrs Laboratory Tests Test 07/10/16 16:52 07/10/16 21:15 07/11/16 01:08 07/11/16 07:00 Bedside Glucose 138 207 200 Anion Gap 20 H Blood Urea Nitrogen 42 H Calcium Level 8.5 Carbon Dioxide Level 26 Chloride Level 103 Creatinine 2.66 H Glucose Level 156 Potassium Level 5.8 H Sodium Level 143 Test 07/11/16 07:51 07/11/16 11:35 Bedside Glucose 166 185 Medications Medications Current Medications Ondansetron HCl (Zofran Inj) 4 mg Q6H PRN IV NAUSEA AND/OR VOMITING Last administered on 07/06/16 11:46; Admin Dose 4 MG; Start 07/03/16 at 12:00 Acetaminophen (Tylenol Tab) 650 mg Q6H PRN PO PAIN LEVEL 1-3 OR FEVER Last administered on 07/08/16 22:37; Admin Dose 650 MG; Start 07/03/16 at 12:00 Acetaminophen (Tylenol Supp) 650 mg Q6H PRN [place] PAIN LEVEL 1-3 OR FEVER; Start 07/03/16 at 12:00 Acetaminophen/ Hydrocodone Bitart ([place] (5/325)) 1 tab Q6H PRN PO MODERATE PAIN LEVEL 4-6 Last administered on 07/06/16 01:51; Admin Dose 1 TAB; Start at 12:00 Acetaminophen/ Hydrocodone Bitart ([place] (5/325)) 2 tab Q6H PRN PO SEVERE PAIN LEVEL 7-10 Last administered on 07/09/16 14:04; Admin Dose 2 TAB; Start at 12:00 Morphine Sulfate (morphine) 2 mg Q4H PRN IV SEVERE PAIN LEVEL 7-10 Last administered on 07/11/16 00:28; Admin Dose 2 MG; Start 07/03/16 at 12:00 Docusate Sodium (Colace) 100 mg Q12H PRN PO CONSTIPATION Last administered on 12:59; Admin Dose 100 MG; Start 07/03/16 at 12:00 Magnesium Hydroxide (Milk Of Mag) 30 ml DAILY PRN PO CONSTIPATION Last administered on 07/10/16 12:59; Admin Dose 30 ML; Start 07/03/16 at 12:00 Bisacodyl (Dulcolax Supp) 10 mg DAILY PRN [place] CONSTIPATION; Start 07/03/16 at 12 :00 Hydralazine HCl (Apresoline) 10 mg Q4 PRN IV sbp>160; Start 07/03/16 at 12:00 Aripiprazole (Abilify) 2 mg DAILY PO Last administered on 07/11/16 09:38; Admin Dose 2 MG; Start 07/04/16 at 09:00 Aspirin (Halfprin) 81 mg DAILY PO Last administered on 07/11/16 09:38; Admin Dose 81 MG; Start 07/04/16 at 09:00 Benazepril HCl (Lotensin) 5 mg BID PO Last administered on 07/11/16 09:45; Admin Dose 5 MG; Start 07/03/16 at 21:00 Carbidopa/Levodopa (Sinemet ()) 1 tab DAILY PO Last administered on 07/11 09:39; Admin Dose 1 TAB; Start 07/04/16 at 09:00 Carvedilol (Coreg) 12.5 mg BID PO Last administered on 07/11/16 09:39; Admin Dose 12.5 MG; Start 07/03/16 at 21:00 Clopidogrel Bisulfate (plaVIX) 75 mg DAILY PO Last administered on 07/11/16 09 :39; Admin Dose 75 MG; Start 07/04/16 at 09:00 Fluticasone Propionate (Flonase 0.05% Nasal) 1 spray BID NASAL Last administered on 07/11/16 09:38; Admin Dose 1 SPRAY; Start 07/03/16 at 21:00 Loratadine (Claritin) 10 mg DAILY PO Last administered on 07/11/16 09:40; Admin Dose 10 MG; Start 07/04/16 at 09:00 Meclizine HCl (Antivert) 25 mg Q12H PRN PO DIZZINESS; Start 07/03/16 at 14:30 Sertraline HCl (Zoloft) 50 mg DAILY PO Last administered on 07/11/16 09:40; Admin Dose 50 MG; Start 07/04/16 at 09:00 Atorvastatin Calcium (Lipitor) 10 mg QHS PO Last administered on 07/10/16 22: 10; Admin Dose 10 MG; Start 07/03/16 at 21:00 Miscellaneous Information 1 ea NOTE XX ; Start 07/03/16 at 15:00 Glucose (Glutose) 15 gm Q15M PRN PO DECREASED GLUCOSE; Start 07/03/16 at 15:00 Glucose (Glutose) 22.5 gm Q15M PRN PO DECREASED GLUCOSE; Start 07/03/16 at 15: 00 Dextrose (D50w Syringe) 25 ml Q15M PRN IV DECREASED GLUCOSE; Start 07/03/16 at 15:00 Dextrose (D50w Syringe) 50 ml Q15M PRN IV DECREASED GLUCOSE; Start 07/03/16 at 15:00 Glucagon (Glucagen) 1 mg Q15M PRN IM DECREASED GLUCOSE; Start 07/03/16 at 15:00 Glucose (Glutose) 15 gm Q15M PRN BUCCAL DECREASED GLUCOSE; Start 07/03/16 at 15 :00 Citric Acid/ Sodium Citrate (Bicitra) 30 ml BID PO Last administered on 09:38; Admin Dose 30 ML; Start 07/04/16 at 21:00 Heparin Sodium (Porcine) (Heparin (5000 Units/0.5 ml)) 5,000 unit BID SC Last administered on 07/11/16 09:38; Admin Dose 5,000 UNIT; Start 07/05/16 at 21:00 Pantoprazole (Protonix Tab) 40 mg DAILY@06 PO Last administered on 07/11/16 07 :09; Admin Dose 40 MG; Start 07/07/16 at 06:00 Diagnostic Test (Pha) (Accucheck) 1 ea 02 XX Last administered on 07/11/16 02: 03; Admin Dose 1 EA; Start 07/08/16 at 02:00 Alprazolam (Xanax) 0.25 mg BID PO Last administered on 07/11/16 09:39; Admin Dose 0.25 MG; Start 07/07/16 at 11:30 Al Hydrox/Mg Hydrox/Simethicone (Mag-Al Plus) 30 ml Q6H PRN PO GASTROINTESTINAL UPSET Last administered on 07/07/16 11:35; Admin Dose 30 ML; Start 07/07/16 at 11:30 MEHDI MISTRY MD Jul 11, 2016 12:58
[2016-07-11] MEDS: ATORVASTATIN 10 MG TAB PO SCH (20:19)
[2016-07-12] VITALS (29 sets, daily range): BP systolic 101–144; BP diastolic 53–72; PULSE 70–102; RESP 11–22
[2016-07-12] MEDS: FLUTICASONE 0.05% 16 GM NAS SPRAY NASAL SCH ×3 (01:46→22:41)
[2016-07-12] MEDS: ACCUCHECK XX SCH (01:52)
[2016-07-12] MEDS: PANTOPRAZOLE (EC) 40 MG TAB PO SCH (05:31)
[2016-07-12 07:32] LABS: POTASSIUM 4.6 mmol/L (3.5-5.1)
[2016-07-12 07:35] LABS: CREATININE 2.65 mg/dl (0.44-1.00)
[2016-07-12 07:36] LABS: CALCIUM 8.2 mg/dl (8.4-10.2)
[2016-07-12] MEDS: INSULIN ASPART [NOVOLOG] 3 ML PEN SC SCH ×4 (07:52→22:50)
[2016-07-12] MEDS: CITRIC ACID/NA CITRATE 30 ML CUP PO SCH ×2 (08:05→22:40)
[2016-07-12] MEDS: LORATADINE 10 MG TAB PO SCH (08:05)
[2016-07-12] MEDS: ARIPIPRAZOLE 2 MG TAB PO SCH (08:05)
[2016-07-12] MEDS: ASPIRIN (EC) 81 MG TAB PO SCH (08:06)
[2016-07-12] MEDS: CLOPIDOGREL 75 MG TAB PO SCH (08:06)
[2016-07-12] MEDS: CARBIDOPA/LEVODOPA (25/100) TAB PO SCH (08:06)
[2016-07-12] MEDS: BENAZEPRIL 5 MG TAB PO SCH ×2 (08:06→22:41)
[2016-07-12] MEDS: SERTRALINE 50 MG TAB PO SCH (08:06)
[2016-07-12] MEDS: ALPRAZOLAM 0.25 MG TAB PO SCH ×2 (08:06→22:40)
[2016-07-12] MEDS: HEPARIN 5,000 UNIT/0.5 ML SYG SC SCH ×2 (08:06→22:49)
[2016-07-12] MEDS ORDERED: FENTAnyl 50 MCG/ML VIAL ONE (11:05)
[2016-07-12] MEDS ORDERED: PROPOFOL 40 ML ONE (11:05)
[2016-07-12 11:10] LABS: ADD SCAN DIFF NO
[2016-07-12] MEDS: MEGESTROL (40 MG/ML) 10ML CUP PO SCH (11:10)
[2016-07-12 11:12] LABS: BASOPHILS % 0.3 % (0.0-2.0); EOSINOPHILS # 0.2 10^3/ul (0.0-0.5); EOSINOPHILS % 2.5 % (0.0-7.0); HEMATOCRIT 37.4 % (37.0-47.0); HEMOGLOBIN 12.1 g/dl (12.0-16.0); LYMPHOCYTES # 1.2 10^3/ul (0.8-2.9); MEAN CORPUSCULAR HEMOGLOBIN 28.7 pg (29.0-33.0); MEAN CORPUSCULAR HGB CONC 32.4 g/dl (32.0-37.0); MEAN CORPUSCULAR VOLUME 88.8 fl (82.0-101.0); MEAN PLATELET VOLUME 10.9 fl (7.4-10.4); MONOCYTE # 0.7 10^3/ul (0.3-0.9); MONOCYTES % 11.9 % (0.0-11.0); NEUTROPHIL # 3.8 10^3/ul (1.6-7.5); NEUTROPHILS % 64.5 % (39.0-77.0); PLATELET COUNT 149 10^3/UL (140-415); RED BLOOD COUNT 4.21 10^6/ul (4.20-5.40); RED CELL DISTRIBUTION WIDTH 17.6 % (11.5-14.5); WHITE BLOOD COUNT 5.9 10^3/ul (4.8-10.8)
[2016-07-12] MEDS ORDERED: PHENYLephrine (100 MCG/ML) 5ML SYG ONE ×2 (11:19→12:25)
[2016-07-12 11:23] LABS: INR 0.95; PROTIME 12.7 Sec (12.2-14.2)
[2016-07-12 11:24] LABS: PARTIAL THROMBOPLASTIN TIME 31.5 Sec (25.0-35.0)
[2016-07-12 11:26] LABS: POTASSIUM 4.7 mmol/L (3.5-5.1)
[2016-07-12 11:28] LABS: CREATININE 2.52 mg/dl (0.44-1.00)
[2016-07-12 11:29] LABS: CALCIUM 8.1 mg/dl (8.4-10.2)
[2016-07-12] MEDS ORDERED: POLYMYXIN/BACITRACIN 1L IRRIG IRR ONE (11:54)
[2016-07-12] MEDS ORDERED: METOCLOPRAMIDE 10 MG INJ ONE (11:56)
[2016-07-12] MEDS ORDERED: DEXAMETHASONE 4 MG/ML 1 ML INJ ONE (11:56)
[2016-07-12] MEDS ORDERED: ONDANSETRON 4 MG INJ ONE (11:56)
[2016-07-12] MEDS ORDERED: PROPOFOL 60 ML ONE (11:57)
[2016-07-12] MEDS ORDERED: CEFAZOLIN 1 GM INJ ONE (11:57)
[2016-07-12] MEDS ORDERED: HYDROmorphONE (0.2 MG/ML) 10ML SYG IV PRN ×2 (12:00)
[2016-07-12] MEDS ORDERED: DIPHENHYDRAMINE 50 MG INJ IV PRN (12:00)
[2016-07-12] MEDS ORDERED: morphine (1 MG/ML) 10ML SYRINGE IV PRN ×2 (12:00)
[2016-07-12] MEDS ORDERED: ONDANSETRON 4 MG INJ IV PRN (12:00)
[2016-07-12] MEDS ORDERED: hydrALAzine 20 MG INJ IV PRN (12:00)
[2016-07-12] MEDS ORDERED: LABETALOL HCL 20MG INJ IV PRN (12:00)
[2016-07-12] MEDS ORDERED: EPHEDrine SULFATE 50 MG/5 ML SYG IV PRN (12:00)
[2016-07-12] MEDS ORDERED: ALBUMIN HUMAN 5% 250 ML IV PRN (12:00)
[2016-07-12] MEDS ORDERED: ALBUMIN HUMAN 5% 250 ML ONE (12:04)
--- NOTE | 2016-07-12 12:43 | PN ---
Date/Time of Note Date/Time of Note DATE: 07/12/16 TIME: 12:40 Assessment/Plan VTE Prophylaxis VTE Prophylaxis Intervention: heparin Lines/Catheters IV Catheter Type (from Nrs): Peripheral IV Urinary Cath still in place: Yes Reason Cath still needed: other (indicate) (hip fracture, plan for surgery today ) Assessment/Plan Assessment/Plan 1. Right hip fracture s/p fall at home . Orthopedic surgeon following. Continue with analgesics as needed. need surgical intervention 2. 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 Patient does follow-up with her physician Dr. Valenzuela as outpatient for this issue. She is status post radiation therapy reportedly 3 weeks ago. Patient follow-up with outpatient oncologist 3. YOLETTE 2/2 prerenal azotemia 4. Anemia likely of chronic disease. STable. Transfuse PRBC as needed 5. History of CAD with previous CABG. We'll resume patient's antiplatelet therapy 6. Essential hypertension. continue on antihypertensives and adjust as needed 7. History of dyslipidemia. Follow-up on fasting lipid panel. 8. Reported history of diabetes. A1c: 5.9. will monitor 9.. Influenza A positive. Continue on Tamiflu 10. E.Coli UTI on IV levaquin S/p Orthopedic Surgery consulation,- hemiarthroplasty plan as per ortho today Bactrim discontinued due o hyperkalemia, BP stable Heparin for DVT prophyalxis s/p Cardiology clearane, cleraed for surgery Subjective 24 Hr Interval Summary Free Text/Dictation pt stable, pain controlled,plan for ORIF Exam/Review of Systems Vital Signs Vitals Vital Signs Date Time Temp Pulse Resp B/P Pulse Ox O2 Delivery O2 Flow Rate FiO2 07/12/16 08:28 78 07/12/16 07:45 98.0 19 120/56 94 Intake and Output 07/11/16 07/11/16 07/12/16 14:59 22:59 06:59 Intake Total 550 ml 280 ml Output Total 1150 ml 700 ml Balance -600 ml -420 ml Exam Neck: Supple nontender, no JVD Cardiac: S1, S2 auscultated, regular rhythm and rate Pulmonary: No coarse rhonchi or breathing auscultated GI: Abdomen soft nontender nondistended, bowel sounds active Extremities: Pain on palpation of bilateral lower extremity Skin: Clean dry and intact Neurologic: Alert to person place and time and situation Results Result Diagram: 07/12/16 1100 07/12/16 1100 Results 24 hrs Laboratory Tests Test 07/11/16 17:00 07/11/16 20:17 07/12/16 05:19 07/12/16 06:15 Bedside Glucose 136 191 140 Anion Gap 21 H Blood Urea Nitrogen 40 H Calcium Level 8.2 L Carbon Dioxide Level 21 Chloride Level 104 Creatinine 2.65 H Glucose Level 142 Potassium Level 4.6 Sodium Level 141 Test 07/12/16 07:48 07/12/16 11:00 Bedside Glucose 125 Activated Partial Thromboplast Time 31.5 Anion Gap 20 H Basophils # 0.0 Basophils % 0.3 Blood Urea Nitrogen 38 H Calcium Level 8.1 L Carbon Dioxide Level 20 L Chloride Level 105 Creatinine 2.52 H Eosinophils # 0.2 Eosinophils % 2.5 Glucose Level 121 Hematocrit 37.4 Hemoglobin 12.1 INR International Normalized Ratio 0.95 Lymphocytes # 1.2 Lymphocytes % 20.0 Mean Corpuscular Hemoglobin 28.7 L Mean Corpuscular Hemoglobin Concent 32.4 Mean Corpuscular Volume 88.8 Mean Platelet Volume 10.9 H Monocytes # 0.7 Monocytes % 11.9 H Neutrophils # 3.8 Neutrophils % 64.5 Nucleated Red Blood Cells # 0.0 Nucleated Red Blood Cells % 0.0 Platelet Count 149 Potassium Level 4.7 Prothrombin Time 12.7 Prothrombin Time Ratio 1.0 Red Blood Count 4.21 Red Cell Distribution Width 17.6 H Sodium Level 140 White Blood Count 5.9 Medications Medications Current Medications Ondansetron HCl (Zofran Inj) 4 mg Q6H PRN IV NAUSEA AND/OR VOMITING Last administered on 07/06/16 11:46; Admin Dose 4 MG; Start 07/03/16 at 12:00 Acetaminophen (Tylenol Tab) 650 mg Q6H PRN PO PAIN LEVEL 1-3 OR FEVER Last administered on 07/08/16 22:37; Admin Dose 650 MG; Start 07/03/16 at 12:00 Acetaminophen (Tylenol Supp) 650 mg Q6H PRN [place] PAIN LEVEL 1-3 OR FEVER; Start 07/03/16 at 12:00 Acetaminophen/ Hydrocodone Bitart ([place] (5/325)) 1 tab Q6H PRN PO MODERATE PAIN LEVEL 4-6 Last administered on 07/06/16 01:51; Admin Dose 1 TAB; Start at 12:00 Acetaminophen/ Hydrocodone Bitart ([place] (5/325)) 2 tab Q6H PRN PO SEVERE PAIN LEVEL 7-10 Last administered on 07/09/16 14:04; Admin Dose 2 TAB; Start at 12:00 Morphine Sulfate (morphine) 2 mg Q4H PRN IV SEVERE PAIN LEVEL 7-10 Last administered on 07/11/16 00:28; Admin Dose 2 MG; Start 07/03/16 at 12:00 Docusate Sodium (Colace) 100 mg Q12H PRN PO CONSTIPATION Last administered on 12:59; Admin Dose 100 MG; Start 07/03/16 at 12:00 Magnesium Hydroxide (Milk Of Mag) 30 ml DAILY PRN PO CONSTIPATION Last administered on 07/10/16 12:59; Admin Dose 30 ML; Start 07/03/16 at 12:00 Bisacodyl (Dulcolax Supp) 10 mg DAILY PRN [place] CONSTIPATION Last administered on 07/11/16 14:30; Admin Dose 10 MG; Start 07/03/16 at 12:00 Hydralazine HCl (Apresoline) 10 mg Q4 PRN IV sbp>160; Start 07/03/16 at 12:00 Aripiprazole (Abilify) 2 mg DAILY PO Last administered on 07/11/16 09:38; Admin Dose 2 MG; Start 07/04/16 at 09:00 Aspirin (Halfprin) 81 mg DAILY PO Last administered on 07/11/16 09:38; Admin Dose 81 MG; Start 07/04/16 at 09:00 Benazepril HCl (Lotensin) 5 mg BID PO Last administered on 07/11/16 20:20; Admin Dose 5 MG; Start 07/03/16 at 21:00 Carbidopa/Levodopa (Sinemet (25/ 100)) 1 tab DAILY PO Last administered on 07/11 09:39; Admin Dose 1 TAB; Start 07/04/16 at 09:00 Carvedilol (Coreg) 12.5 mg BID PO Last administered on 07/11/16 20:20; Admin Dose 12.5 MG; Start 07/03/16 at 21:00 Clopidogrel Bisulfate (plaVIX) 75 mg DAILY PO Last administered on 07/11/16 09 :39; Admin Dose 75 MG; Start 07/04/16 at 09:00 Fluticasone Propionate (Flonase 0.05% Nasal) 1 spray BID NASAL Last administered on 07/12/16 01:46; Admin Dose 1 SPRAY; Start 07/03/16 at 21:00 Loratadine (Claritin) 10 mg DAILY PO Last administered on 07/11/16 09:40; Admin Dose 10 MG; Start 07/04/16 at 09:00 Meclizine HCl (Antivert) 25 mg Q12H PRN PO DIZZINESS; Start 07/03/16 at 14:30 Sertraline HCl (Zoloft) 50 mg DAILY PO Last administered on 07/11/16 09:40; Admin Dose 50 MG; Start 07/04/16 at 09:00 Atorvastatin Calcium (Lipitor) 10 mg QHS PO Last administered on 07/11/16 20: 19; Admin Dose 10 MG; Start 07/03/16 at 21:00 Miscellaneous Information 1 ea NOTE XX ; Start 07/03/16 at 15:00 Glucose (Glutose) 15 gm Q15M PRN PO DECREASED GLUCOSE; Start 07/03/16 at 15:00 Glucose (Glutose) 22.5 gm Q15M PRN PO DECREASED GLUCOSE; Start 07/03/16 at 15: 00 Dextrose (D50w Syringe) 25 ml Q15M PRN IV DECREASED GLUCOSE; Start 07/03/16 at 15:00 Dextrose (D50w Syringe) 50 ml Q15M PRN IV DECREASED GLUCOSE; Start 07/03/16 at 15:00 Glucagon (Glucagen) 1 mg Q15M PRN IM DECREASED GLUCOSE; Start 07/03/16 at 15:00 Glucose (Glutose) 15 gm Q15M PRN BUCCAL DECREASED GLUCOSE; Start 07/03/16 at 15 :00 Citric Acid/ Sodium Citrate (Bicitra) 30 ml BID PO Last administered on 20:19; Admin Dose 30 ML; Start 07/04/16 at 21:00 Heparin Sodium (Porcine) (Heparin (5000 Units/0.5 ml)) 5,000 unit BID SC Last administered on 07/11/16 20:25; Admin Dose 5,000 UNIT; Start 2/19/17 at 21:00 Pantoprazole (Protonix Tab) 40 mg DAILY@06 PO Last administered on 07/11/16 07 :09; Admin Dose 40 MG; Start 07/07/16 at 06:00 Diagnostic Test (Pha) (Accucheck) 1 ea 02 XX Last administered on 07/12/16 01: 52; Admin Dose 1 EA; Start 07/08/16 at 02:00 Alprazolam (Xanax) 0.25 mg BID PO Last administered on 07/11/16 20:19; Admin Dose 0.25 MG; Start 07/07/16 at 11:30 Al Hydrox/Mg Hydrox/Simethicone (Mag-Al Plus) 30 ml Q6H PRN PO GASTROINTESTINAL UPSET Last administered on 07/07/16 11:35; Admin Dose 30 ML; Start 07/07/16 at 11:30 MEHDI MISTRY MD Jul 12, 2016 12:43
[2016-07-12] MEDS ORDERED: D5W-0.45 NACL + KCL 20 MEQ 1,000 ML IV SCH (13:20)
--- NOTE | 2016-07-12 13:28 | CONS ---
Date/Time of Note Date/Time of Note DATE: 07/12/16 TIME: 13:28 Assessment/Plan Assessment/Plan Chief Complaint/Hosp Course IMPRESSION: 1. Patient has [id number] kidney disease, acute renal failure due to prerenal azotemia.BETTER 2. Patient has underlying chronic kidney disease, possibly hypertensive nephrosclerosis, and possible diabetic nephropathy. 3. Hyperkalemia, worsened by aldosterone antagonist.NOW SEPTRA WILL DC THAT 4. Anemia of possibly chronic kidney disease. 5. Metabolic acidosis. better 6. The patient also is status post fall with right hip fracture. PER ORTHO 7. Coronary artery disease with coronary artery bypass graft. 8. History of hysterectomy. 9. History of breast cancer, surgery on treatment. 10. Underlying chronic tubular interstitial nephritis. 11. proteinuria. 12 UTI plan ck bmp avoid nephrotoxic drugs BMP Problems: Consultation Date/Type/Reason Admit Date/Time Jul 03, 2016 at 11:46 Initial Consult Date 07/03/16 Type of Consultation: RENAL Referring Provider: JUNI NUNEZ 24 HR Interval Summary Constitutional: no complaints Exam/Review of Systems Vital Signs Vitals Vital Signs Date Time Temp Pulse Resp B/P Pulse Ox O2 Delivery O2 Flow Rate FiO2 07/12/16 13:19 76 20 111/60 100 Nasal Cannula 2.0 07/12/16 12:51 99.2 Intake and Output 07/11/16 07/11/16 07/12/16 15:00 23:00 07:00 Intake Total 550 ml 280 ml Output Total 1150 ml 700 ml Balance -600 ml -420 ml Exam Respiratory: clear to auscultation Cardiovascular: regular rate and rhythm Gastrointestinal: soft Musculoskeletal: nl extremities to inspection Extremities: normal pulses Results Result Diagram: 07/12/16 1100 07/12/16 1100 Results 24 hrs Laboratory Tests Test 07/11/16 17:00 07/11/16 20:17 07/12/16 05:19 07/12/16 06:15 Bedside Glucose 136 191 140 Anion Gap 21 H Blood Urea Nitrogen 40 H Calcium Level 8.2 L Carbon Dioxide Level 21 Chloride Level 104 Creatinine 2.65 H Glucose Level 142 Potassium Level 4.6 Sodium Level 141 Test 07/12/16 07:48 07/12/16 11:00 Bedside Glucose 125 Activated Partial Thromboplast Time 31.5 Anion Gap 20 H Basophils # 0.0 Basophils % 0.3 Blood Urea Nitrogen 38 H Calcium Level 8.1 L Carbon Dioxide Level 20 L Chloride Level 105 Creatinine 2.52 H Eosinophils # 0.2 Eosinophils % 2.5 Glucose Level 121 Hematocrit 37.4 Hemoglobin 12.1 INR International Normalized Ratio 0.95 Lymphocytes # 1.2 Lymphocytes % 20.0 Mean Corpuscular Hemoglobin 28.7 L Mean Corpuscular Hemoglobin Concent 32.4 Mean Corpuscular Volume 88.8 Mean Platelet Volume 10.9 H Monocytes # 0.7 Monocytes % 11.9 H Neutrophils # 3.8 Neutrophils % 64.5 Nucleated Red Blood Cells # 0.0 Nucleated Red Blood Cells % 0.0 Platelet Count 149 Potassium Level 4.7 Prothrombin Time 12.7 Prothrombin Time Ratio 1.0 Red Blood Count 4.21 Red Cell Distribution Width 17.6 H Sodium Level 140 White Blood Count 5.9 Medications Medications Current Medications Ondansetron HCl (Zofran Inj) 4 mg Q6H PRN IV NAUSEA AND/OR VOMITING Last administered on 07/06/16 11:46; Admin Dose 4 MG; Start 07/03/16 at 12:00 Acetaminophen (Tylenol Tab) 650 mg Q6H PRN PO PAIN LEVEL 1-3 OR FEVER Last administered on 07/08/16 22:37; Admin Dose 650 MG; Start 07/03/16 at 12:00 Acetaminophen (Tylenol Supp) 650 mg Q6H PRN [place] PAIN LEVEL 1-3 OR FEVER; Start 07/03/16 at 12:00 Acetaminophen/ Hydrocodone Bitart ([place] (5/325)) 1 tab Q6H PRN PO MODERATE PAIN LEVEL 4-6 Last administered on 07/06/16 01:51; Admin Dose 1 TAB; Start at 12:00 Acetaminophen/ Hydrocodone Bitart ([place] (5/325)) 2 tab Q6H PRN PO SEVERE PAIN LEVEL 7-10 Last administered on 07/09/16 14:04; Admin Dose 2 TAB; Start at 12:00 Morphine Sulfate (morphine) 2 mg Q4H PRN IV SEVERE PAIN LEVEL 7-10 Last administered on 07/11/16 00:28; Admin Dose 2 MG; Start 07/03/16 at 12:00 Docusate Sodium (Colace) 100 mg Q12H PRN PO CONSTIPATION Last administered on 12:59; Admin Dose 100 MG; Start 07/03/16 at 12:00 Magnesium Hydroxide (Milk Of Mag) 30 ml DAILY PRN PO CONSTIPATION Last administered on 07/10/16 12:59; Admin Dose 30 ML; Start 07/03/16 at 12:00 Bisacodyl (Dulcolax Supp) 10 mg DAILY PRN [place] CONSTIPATION Last administered on 07/11/16 14:30; Admin Dose 10 MG; Start 07/03/16 at 12:00 Hydralazine HCl (Apresoline) 10 mg Q4 PRN IV sbp>160; Start 07/03/16 at 12:00 Aripiprazole (Abilify) 2 mg DAILY PO Last administered on 07/11/16 09:38; Admin Dose 2 MG; Start 07/04/16 at 09:00 Aspirin (Halfprin) 81 mg DAILY PO Last administered on 07/11/16 09:38; Admin Dose 81 MG; Start 07/04/16 at 09:00 Benazepril HCl (Lotensin) 5 mg BID PO Last administered on 07/11/16 20:20; Admin Dose 5 MG; Start 07/03/16 at 21:00 Carbidopa/Levodopa (Sinemet (25/ )) 1 tab DAILY PO Last administered on 07/11 09:39; Admin Dose 1 TAB; Start 07/04/16 at 09:00 Carvedilol (Coreg) 12.5 mg BID PO Last administered on 07/11/16 20:20; Admin Dose 12.5 MG; Start 07/03/16 at 21:00 Clopidogrel Bisulfate (plaVIX) 75 mg DAILY PO Last administered on 07/11/16 09 :39; Admin Dose 75 MG; Start 07/04/16 at 09:00 Fluticasone Propionate (Flonase 0.05% Nasal) 1 spray BID NASAL Last administered on 07/12/16 01:46; Admin Dose 1 SPRAY; Start 07/03/16 at 21:00 Loratadine (Claritin) 10 mg DAILY PO Last administered on 07/11/16 09:40; Admin Dose 10 MG; Start 07/04/16 at 09:00 Meclizine HCl (Antivert) 25 mg Q12H PRN PO DIZZINESS; Start 07/03/16 at 14:30 Sertraline HCl (Zoloft) 50 mg DAILY PO Last administered on 07/11/16 09:40; Admin Dose 50 MG; Start 07/04/16 at 09:00 Atorvastatin Calcium (Lipitor) 10 mg QHS PO Last administered on 07/11/16 20: 19; Admin Dose 10 MG; Start 07/03/16 at 21:00 Miscellaneous Information 1 ea NOTE XX ; Start 07/03/16 at 15:00 Glucose (Glutose) 15 gm Q15M PRN PO DECREASED GLUCOSE; Start 07/03/16 at 15:00 Glucose (Glutose) 22.5 gm Q15M PRN PO DECREASED GLUCOSE; Start 07/03/16 at 15: 00 Dextrose (D50w Syringe) 25 ml Q15M PRN IV DECREASED GLUCOSE; Start 07/03/16 at 15:00 Dextrose (D50w Syringe) 50 ml Q15M PRN IV DECREASED GLUCOSE; Start 07/03/16 at 15:00 Glucagon (Glucagen) 1 mg Q15M PRN IM DECREASED GLUCOSE; Start 07/03/16 at 15:00 Glucose (Glutose) 15 gm Q15M PRN BUCCAL DECREASED GLUCOSE; Start 07/03/16 at 15 :00 Citric Acid/ Sodium Citrate (Bicitra) 30 ml BID PO Last administered on 20:19; Admin Dose 30 ML; Start 07/04/16 at 21:00 Heparin Sodium (Porcine) (Heparin (5000 Units/0.5 ml)) 5,000 unit BID SC Last administered on 07/11/16 20:25; Admin Dose 5,000 UNIT; Start 07/05/16 at 21:00 Pantoprazole (Protonix Tab) 40 mg DAILY@06 PO Last administered on 07/11/16 07 :09; Admin Dose 40 MG; Start 07/07/16 at 06:00 Diagnostic Test (Pha) (Accucheck) 1 ea 02 XX Last administered on 07/12/16 01: 52; Admin Dose 1 EA; Start 07/08/16 at 02:00 Alprazolam (Xanax) 0.25 mg BID PO Last administered on 07/11/16 20:19; Admin Dose 0.25 MG; Start 07/07/16 at 11:30 Al Hydrox/Mg Hydrox/Simethicone (Mag-Al Plus) 30 ml Q6H PRN PO GASTROINTESTINAL UPSET Last administered on 07/07/16t 11:35; Admin Dose 30 ML; Start 07/07/16 at 11:30 PERRY ALVARES MD Jul 12, 2016 13:28
[2016-07-12] MEDS ORDERED: NACL 0.9% 3 ML SYG IV SCH (13:30)
[2016-07-12] MEDS ORDERED: LEVALBUTEROL (NEB) 1.25 MG/0.5 ML AMP ONE (13:35)
[2016-07-12] MEDS ORDERED: VANCOMYCIN 1 GM (PMX) 250 ML IVPB SCH (14:00)
[2016-07-12] MEDS ORDERED: morphine 2 MG INJ IV PRN (14:00)
--- NOTE | 2016-07-12 14:11 | RADRPT ---
PROCEDURE: XR Pelvis. CLINICAL INDICATION: Pelvic pain. Postoperative evaluation TECHNIQUE: Single AP view of the pelvis was obtained. COMPARISON: 07/03/2016 FINDINGS: A right hip arthroplasty is seen and is without evidence of hardware loosening or lucency. Skin sta ples are seen. Soft tissue air in the operative bed of the right hip is seen. No acute fracture di slocation is seen. Contreras catheter is identified. The remaining soft tissue structures are intact. IMPRESSION: Status post right hip arthroplasty with acute postoperative changes as described above. RPTAT: HPNM Physician Michael Date Time Electronically viewed and signed by Physician Michael on 07/12/2016 14:11 /
[2016-07-12] MEDS: morphine 2 MG INJ IV PRN (14:30)
[2016-07-12 15:28] LABS: POTASSIUM 5.4 mmol/L (3.5-5.1)
[2016-07-12 15:31] LABS: CREATININE 2.29 mg/dl (0.44-1.00)
[2016-07-12 15:32] LABS: CALCIUM 7.5 mg/dl (8.4-10.2)
[2016-07-12 15:34] LABS: HEMATOCRIT 34.8 % (37.0-47.0)
--- NOTE | 2016-07-12 16:34 | OPR ---
DATE OF OPERATION: 07/12/2016 PREOPERATIVE DIAGNOSIS: Femoral neck fracture of the right hip, possibly pathologic. POSTOPERATIVE DIAGNOSIS: Femoral neck fracture of the right hip, possibly pathologic. OPERATION PERFORMED: Hemiarthroplasty of the right hip. ANESTHESIA: General anesthesia. SURGEON: Kenrick Byrd MD PROCEDURE AND FINDINGS: Under general anesthesia, the patient was placed on right and left lateral decubitus position with the right side up. Usual prep and drape was done exposing the right hip and right lower extremity. Right hip was approached through the usual posterolateral oblique incision. After splitting gluteal muscles and detaching short external rotator, the hip joint was entered. There obviously was a fracture involving femoral neck. Grossly, no obvious pathologic findings such as metastatic tumor could be identified, but at the time of the removal of the femoral head, specim en was sent to the lab for permanent section for pathology examination. After the removal of the femoral head, measurement was made and the size of the head was about 45 mm in diameter. A trial reduction was carried out with the 45 mm trial bipolar cup and the fitting wa s satisfactory. After packing the acetabular cavity, attention was then directed to the proximal fe mur. Following initial preparation with box osteotome and canal finder, further preparation was car ried out with increasing size of broaches. With the size 7 broach in, trial components were assembl ed and the joint was reduced and the stability and the range of motion tested. After several trials, it was my impression that a size 45 bipolar cup with the size 7 stem in a high -offset setting with the -3 neck was providing the best fit. After removing all the trial component s, actual prosthetics including size 7 stem in a high-offset setting with the -3 neck and 45 cup was assembled and inserted. The joint was reduced and the range of motion and the stability was entire ly satisfactory. After irrigation and hemostasis, external rotator was reattached and the capsule w as closed. Further closure was carried out using 0 Vicryl for muscle and fascia and 2-0 Vicryl for subcutaneous tissues. Final skin closure was carried out with skin tianna. Usual sterile pressure dressings were applied. The patient tolerated the entire procedure very well and was sent to the recovery room in good condi tion. Dictated By: KENRICK LATIF/FRANCIE Conf#: [id number] DID#: [id number]
[2016-07-12] MEDS: HYDROmorphONE 1 MG/ML SYG IV PRN ×3 (17:03→22:52)
[2016-07-12] MEDS: DEXTROSE 5%-0.45% NACL 1,000 ML IV SCH (17:04)
[2016-07-12] MEDS: ATORVASTATIN 10 MG TAB PO SCH (22:41)
[2016-07-13] VITALS (15 sets, daily range): BP systolic 95–118; BP diastolic 47–72; PULSE 58–100; RESP 16–22
[2016-07-13] MEDS: ACCUCHECK XX SCH (02:00)
[2016-07-13] MEDS: HYDROmorphONE 1 MG/ML SYG IV PRN ×2 (03:21→07:00)
[2016-07-13] MEDS: DEXTROSE 5%-0.45% NACL 1,000 ML IV SCH ×2 (06:58→19:40)
[2016-07-13] MEDS: PANTOPRAZOLE (EC) 40 MG TAB PO SCH (06:58)
[2016-07-13 07:41] LABS: ADD SCAN DIFF NO
[2016-07-13 07:57] LABS: BASOPHILS % 0.1 % (0.0-2.0); HEMATOCRIT 27.8 % (37.0-47.0); HEMOGLOBIN 8.5 g/dl (12.0-16.0); LYMPHOCYTES # 0.7 10^3/ul (0.8-2.9); LYMPHOCYTES % 8.8 % (15.0-51.0); MEAN CORPUSCULAR HEMOGLOBIN 28.5 pg (29.0-33.0); MEAN CORPUSCULAR HGB CONC 30.6 g/dl (32.0-37.0); MEAN CORPUSCULAR VOLUME 93.3 fl (82.0-101.0); MEAN PLATELET VOLUME 11.3 fl (7.4-10.4); MONOCYTE # 1.2 10^3/ul (0.3-0.9); MONOCYTES % 14.8 % (0.0-11.0); NEUTROPHIL # 6.3 10^3/ul (1.6-7.5); NEUTROPHILS % 75.3 % (39.0-77.0); PLATELET COUNT 169 10^3/UL (140-415); RED BLOOD COUNT 2.98 10^6/ul (4.20-5.40); RED CELL DISTRIBUTION WIDTH 17.8 % (11.5-14.5); WHITE BLOOD COUNT 8.3 10^3/ul (4.8-10.8)
[2016-07-13 07:57] LABS: POTASSIUM 4.8 mmol/L (3.5-5.1)
[2016-07-13 08:00] LABS: CREATININE 2.38 mg/dl (0.44-1.00)
[2016-07-13 08:00] LABS: INR 1.01; PARTIAL THROMBOPLASTIN TIME 20.1 Sec (25.0-35.0); PROTIME 13.3 Sec (12.2-14.2)
[2016-07-13 08:01] LABS: CALCIUM 7.4 mg/dl (8.4-10.2)
[2016-07-13] MEDS: BENAZEPRIL 5 MG TAB PO SCH (09:00)
--- NOTE | 2016-07-13 09:12 | CONS ---
Date/Time of Note Date/Time of Note DATE: 07/13/16 TIME: 09:09 Consultation Date/Type/Reason Admit Date/Time Jul 03, 2016 at 11:46 Initial Consult Date 07/03/16 Type of Consultation: Anesthesia Reason for Consultation Right Hip Hemiarthroplasty Referring Provider: JUNI NUNEZ 24 HR Interval Summary Free Text/Dictation IMPRESSION: 1. Patient has [id number] kidney disease, acute renal failure due to prerenal azotemia.BETTER 2. Patient has underlying chronic kidney disease, possibly hypertensive nephrosclerosis, and possible diabetic nephropathy. 3. Hyperkalemia, worsened by aldosterone antagonist.NOW SEPTRA WILL DC THAT 4. Anemia of possibly chronic kidney disease. 5. Metabolic acidosis. better 6. The patient also is status post fall with right hip fracture. PER ORTHO 7. Coronary artery disease with coronary artery bypass graft. 8. History of hysterectomy. 9. History of breast cancer, surgery on treatment. 10. Underlying chronic tubular interstitial nephritis. 11. proteinuria. 12 UTI POD#1 s/p Right Hip Hemiarthroplasty, Spinal anesthesia was used for the surgery and intrathecal narcotic was given for post op pain control. Pain is well controlled patient is doing well. No nausea or vomiting and or apnea noted. No itching noted, No sensory or motor loss reported. Her vital signs are stable and she is afebrile. Primary team will follow up. Exam/Review of Systems Vital Signs Vitals Vital Signs Date Time Temp Pulse Resp B/P Pulse Ox O2 Delivery O2 Flow Rate FiO2 07/13/16 08:55 89 07/13/16 08:09 99.9 20 112/60 94 07/13/16 03:32 Nasal Cannula 2.0 Intake and Output 07/12/16 07/12/16 07/13/16 15:00 23:00 07:00 Intake Total 1400 ml 450 ml 200 ml Output Total 500 ml 1000 ml Balance 900 ml 450 ml -800 ml Results Result Diagram: 07/13/16 0630 07/13/16 0631 Results 24 hrs Laboratory Tests Test 07/12/16 11:00 07/12/16 15:05 07/12/16 17:18 07/12/16 22:37 Activated Partial Thromboplast Time 31.5 Anion Gap 20 H 21 H Basophils # 0.0 Basophils % 0.3 Blood Urea Nitrogen 38 H 36 H Calcium Level 8.1 L 7.5 L Carbon Dioxide Level 20 L 19 L Chloride Level 105 108 Creatinine 2.52 H 2.29 H Eosinophils # 0.2 Eosinophils % 2.5 Glucose Level 121 150 Hematocrit 37.4 34.8 L Hemoglobin 12.1 11.0 L INR International Normalized Ratio 0.95 Lymphocytes # 1.2 Lymphocytes % 20.0 Mean Corpuscular Hemoglobin 28.7 L Mean Corpuscular Hemoglobin Concent 32.4 Mean Corpuscular Volume 88.8 Mean Platelet Volume 10.9 H Monocytes # 0.7 Monocytes % 11.9 H Neutrophils # 3.8 Neutrophils % 64.5 Nucleated Red Blood Cells # 0.0 Nucleated Red Blood Cells % 0.0 Platelet Count 149 Potassium Level 4.7 5.4 H Prothrombin Time 12.7 Prothrombin Time Ratio 1.0 Red Blood Count 4.21 Red Cell Distribution Width 17.6 H Sodium Level 140 143 White Blood Count 5.9 Bedside Glucose 162 236 H Test 07/13/16 03:29 07/13/16 06:30 07/13/16 06:31 07/13/16 06:32 Bedside Glucose 183 Basophils # 0.0 Basophils % 0.1 Eosinophils # 0.0 Eosinophils % 0.0 Hematocrit 27.8 #L Hemoglobin 8.5 #L Lymphocytes # 0.7 L Lymphocytes % 8.8 L Mean Corpuscular Hemoglobin 28.5 L Mean Corpuscular Hemoglobin Concent 30.6 L Mean Corpuscular Volume 93.3 Mean Platelet Volume 11.3 H Monocytes # 1.2 H Monocytes % 14.8 H Neutrophils # 6.3 Neutrophils % 75.3 Nucleated Red Blood Cells # 0.0 Nucleated Red Blood Cells % 0.0 Platelet Count 169 Red Blood Count 2.98 #L Red Cell Distribution Width 17.8 H White Blood Count 8.3 # Anion Gap 22 H Blood Urea Nitrogen 39 H Calcium Level 7.4 L Carbon Dioxide Level 18 L Chloride Level 108 Creatinine 2.38 H Glucose Level 186 Potassium Level 4.8 Sodium Level 143 Activated Partial Thromboplast Time 20.1 L INR International Normalized Ratio 1.01 Prothrombin Time 13.3 Prothrombin Time Ratio 1.0 Test 07/13/16 07:48 Bedside Glucose 194 Medications Medications Current Medications Ondansetron HCl (Zofran Inj) 4 mg Q6H PRN IV NAUSEA AND/OR VOMITING Last administered on 07/06/16 11:46; Admin Dose 4 MG; Start 07/03/16 at 12:00 Acetaminophen (Tylenol Tab) 650 mg Q6H PRN PO PAIN LEVEL 1-3 OR FEVER Last administered on 07/08/16 22:37; Admin Dose 650 MG; Start 07/03/16 at 12:00 Acetaminophen (Tylenol Supp) 650 mg Q6H PRN [place] PAIN LEVEL 1-3 OR FEVER; Start 07/03/16 at 12:00 Acetaminophen/ Hydrocodone Bitart ([place] (5/325)) 2 tab Q6H PRN PO SEVERE PAIN LEVEL 7-10 Last administered on 07/09/16 14:04; Admin Dose 2 TAB; Start at 12:00 Docusate Sodium (Colace) 100 mg Q12H PRN PO CONSTIPATION Last administered on 12:59; Admin Dose 100 MG; Start 07/03/16 at 12:00 Magnesium Hydroxide (Milk Of Mag) 30 ml DAILY PRN PO CONSTIPATION Last administered on 07/10/16 12:59; Admin Dose 30 ML; Start 07/03/16 at 12:00 Bisacodyl (Dulcolax Supp) 10 mg DAILY PRN [place] CONSTIPATION Last administered on 07/11/16 14:30; Admin Dose 10 MG; Start 07/03/16 at 12:00 Hydralazine HCl (Apresoline) 10 mg Q4 PRN IV sbp>160; Start 07/03/16 at 12:00 Aripiprazole (Abilify) 2 mg DAILY PO Last administered on 07/11/16 09:38; Admin Dose 2 MG; Start 07/04/16 at 09:00 Aspirin (Halfprin) 81 mg DAILY PO Last administered on 07/11/16 09:38; Admin Dose 81 MG; Start 07/04/16 at 09:00 Benazepril HCl (Lotensin) 5 mg BID PO Last administered on 07/12/16 22:41; Admin Dose 5 MG; Start 07/03/16 at 21:00 Carbidopa/Levodopa (Sinemet (25/ )) 1 tab DAILY PO Last administered on 07/11 09:39; Admin Dose 1 TAB; Start 07/04/16 at 09:00 Carvedilol (Coreg) 12.5 mg BID PO Last administered on 07/12/16 22:40; Admin Dose 12.5 MG; Start 07/03/16 at 21:00 Clopidogrel Bisulfate (plaVIX) 75 mg DAILY PO Last administered on 07/11/16 09 :39; Admin Dose 75 MG; Start 07/04/16 at 09:00 Fluticasone Propionate (Flonase 0.05% Nasal) 1 spray BID NASAL Last administered on 07/12/16 22:41; Admin Dose 1 SPRAY; Start 07/03/16 at 21:00 Loratadine (Claritin) 10 mg DAILY PO Last administered on 07/11/16 09:40; Admin Dose 10 MG; Start 07/04/16 at 09:00 Meclizine HCl (Antivert) 25 mg Q12H PRN PO DIZZINESS; Start 07/03/16 at 14:30 Sertraline HCl (Zoloft) 50 mg DAILY PO Last administered on 07/11/16 09:40; Admin Dose 50 MG; Start 07/04/16 at 09:00 Atorvastatin Calcium (Lipitor) 10 mg QHS PO Last administered on 07/12/16 22: 41; Admin Dose 10 MG; Start 07/03/16 at 21:00 Miscellaneous Information 1 ea NOTE XX ; Start 07/03/16 at 15:00 Glucose (Glutose) 15 gm Q15M PRN PO DECREASED GLUCOSE; Start 07/03/16 at 15:00 Glucose (Glutose) 22.5 gm Q15M PRN PO DECREASED GLUCOSE; Start 07/03/16 at 15: 00 Dextrose (D50w Syringe) 25 ml Q15M PRN IV DECREASED GLUCOSE; Start 07/03/16 at 15:00 Dextrose (D50w Syringe) 50 ml Q15M PRN IV DECREASED GLUCOSE; Start 07/03/16 at 15:00 Glucagon (Glucagen) 1 mg Q15M PRN IM DECREASED GLUCOSE; Start 07/03/16 at 15:00 Glucose (Glutose) 15 gm Q15M PRN BUCCAL DECREASED GLUCOSE; Start 07/03/16 at 15 :00 Citric Acid/ Sodium Citrate (Bicitra) 30 ml BID PO Last administered on 22:40; Admin Dose 30 ML; Start 07/04/16 at 21:00 Heparin Sodium (Porcine) (Heparin (5000 Units/0.5 ml)) 5,000 unit BID SC Last administered on 07/12/16 22:49; Admin Dose 5,000 UNIT; Start 07/05/16 at 21:00 Pantoprazole (Protonix Tab) 40 mg DAILY@06 PO Last administered on 07/13/16 06 :58; Admin Dose 40 MG; Start 07/07/16 at 06:00 Diagnostic Test (Pha) (Accucheck) 1 ea 02 XX Last administered on 07/13/16 02: 00; Admin Dose 1 EA; Start 07/08/16 at 02:00 Alprazolam (Xanax) 0.25 mg BID PO Last administered on 07/12/16 22:40; Admin Dose 0.25 MG; Start 07/07/16 at 11:30 Al Hydrox/Mg Hydrox/Simethicone (Mag-Al Plus) 30 ml Q6H PRN PO GASTROINTESTINAL UPSET Last administered on 07/07/16 11:35; Admin Dose 30 ML; Start 07/07/16 at 11:30 Acetaminophen/ Hydrocodone Bitart ([place] (5/325)) 1 tab Q3H PRN PO PAIN; Start 07/12/16 at 14:00 Hydromorphone HCl 1 mg 1 mg Q2H PRN IV PAIN Last administered on 07/13/16 07: 00; Admin Dose 1 MG; Start 07/12/16 at 16:30 Dextrose/Sodium Chloride (D5-1/2ns) 1,000 ml @ 75 mls/hr [id number] IV Last administered on 07/13/16 06:58; Admin Dose 75 MLS/HR; Start 07/12/16 at 17:00 TEOFILO PEARCE MD Jul 13, 2016 09:12
[2016-07-13] MEDS: INSULIN ASPART [NOVOLOG] 3 ML PEN SC SCH ×4 (09:17→21:04)
[2016-07-13] MEDS: HEPARIN 5,000 UNIT/0.5 ML SYG SC SCH ×2 (09:18→21:03)
[2016-07-13] MEDS: CITRIC ACID/NA CITRATE 30 ML CUP PO SCH ×2 (09:21→20:43)
[2016-07-13] MEDS: CARBIDOPA/LEVODOPA (25/100) TAB PO SCH (09:25)
[2016-07-13] MEDS: LORATADINE 10 MG TAB PO SCH (09:25)
[2016-07-13] MEDS: ALPRAZOLAM 0.25 MG TAB PO SCH ×2 (09:25→22:22)
[2016-07-13] MEDS: ASPIRIN (EC) 81 MG TAB PO SCH (09:25)
[2016-07-13] MEDS: ARIPIPRAZOLE 2 MG TAB PO SCH (09:25)
[2016-07-13] MEDS: CLOPIDOGREL 75 MG TAB PO SCH (09:25)
[2016-07-13] MEDS: SERTRALINE 50 MG TAB PO SCH (09:25)
[2016-07-13] MEDS: FLUTICASONE 0.05% 16 GM NAS SPRAY NASAL SCH ×2 (09:36→21:10)
--- NOTE | 2016-07-13 13:01 | PN ---
Date/Time of Note Date/Time of Note DATE: 07/13/16 TIME: 12:49 Assessment/Plan VTE Prophylaxis VTE Prophylaxis Intervention: heparin Lines/Catheters IV Catheter Type (from Nrs): Peripheral IV Urinary Cath still in place: Yes Reason Cath still needed: other (indicate) Assessment/Plan Assessment/Plan 1. Right hip fracture s/p fall at home . s/p hemiarthroplasty of the right hip , follow up with ortho 2. Anemia, acute on chronic, blood loss, follow up with CBC 3. 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 Patient does follow-up with her physician Dr. Valenzuela as outpatient for this issue. She is status post radiation therapy reportedly 3 weeks ago. Patient follow-up with outpatient oncologist 4. Renal failure, likely CKD, follow up with BMP 5. History of CAD with previous CABG. We'll resume patient's antiplatelet therapy 6. Essential hypertension. hold benazepril and decrease coreg for hypotension 7. History of dyslipidemia. Follow-up on fasting lipid panel. 8. Reported history of diabetes. on insulin 9.. Influenza A positive. Continue on Tamiflu 10. E.Coli UTI on IV levaquin 11. DVT prophylaxis: heparin Subjective 24 Hr Interval Summary Free Text/Dictation right hip pain Exam/Review of Systems Vital Signs Vitals Vital Signs Date Time Temp Pulse Resp B/P Pulse Ox O2 Delivery O2 Flow Rate FiO2 07/13/16 12:38 88 07/13/16 12:26 99.3 19 95/47 92 07/13/16 03:32 Nasal Cannula 2.0 Intake and Output 07/12/16 07/12/16 07/13/16 15:00 23:00 07:00 Intake Total 1400 ml 450 ml 200 ml Output Total 500 ml 1000 ml Balance 900 ml 450 ml -800 ml Exam Constitutional: alert, oriented, well developed Psych: nl mood/affect, no complaints Head: atraumatic, normocephalic Eyes: EOMI, PERRL, nl conjunctiva, nl lids ENMT: nl external ears & nose, nl lips & teeth, nl nasal mucosa & septum Neck: non-tender, supple Respiratory: clear to auscultation, normal air movement, No congested cough, No crackles/rales, No diminished breath sounds, No intercostal retraction, No labored breathing, No other, No respirations, No tactile fremitus, No wheezing Cardiovascular: nl pulses, regular rate and rhythm, No S3, No S4, No bruits, No diastolic murmur, No edema, No gallop, No irregular rhythm, No jugular venous distention (JVD), No murmurs/extra sounds, No other, No rub, No systolic murmur Gastrointestinal: nl liver, spleen, non-tender, soft, No ascites, No bowel sounds, No distended, No firm, No hepatomegaly, No mass , No other, No rebound or guarding, No splenomegaly, No surgical scars, No tender Extremities: normal pulses, other (right hip pain), No calf tenderness, No clubbing, No cyanosis, No edema, No palpable cord, No pitting pedal edema Neurological: [employer] II-XII intact, nl mental status, nl speech, nl strength Skin: nl turgor Results Result Diagram: 07/13/16 0630 07/13/16 0631 Results 24 hrs Laboratory Tests Test 07/12/16 15:05 07/12/16 17:18 07/12/16 22:37 07/13/16 03:29 Anion Gap 21 H Blood Urea Nitrogen 36 H Calcium Level 7.5 L Carbon Dioxide Level 19 L Chloride Level 108 Creatinine 2.29 H Glucose Level 150 Hematocrit 34.8 L Hemoglobin 11.0 L Potassium Level 5.4 H Sodium Level 143 Bedside Glucose 162 236 H 183 Test 07/13/16 06:30 07/13/16 06:31 07/13/16 06:32 07/13/16 07:48 Basophils # 0.0 Basophils % 0.1 Eosinophils # 0.0 Eosinophils % 0.0 Hematocrit 27.8 #L Hemoglobin 8.5 #L Lymphocytes # 0.7 L Lymphocytes % 8.8 L Mean Corpuscular Hemoglobin 28.5 L Mean Corpuscular Hemoglobin Concent 30.6 L Mean Corpuscular Volume 93.3 Mean Platelet Volume 11.3 H Monocytes # 1.2 H Monocytes % 14.8 H Neutrophils # 6.3 Neutrophils % 75.3 Nucleated Red Blood Cells # 0.0 Nucleated Red Blood Cells % 0.0 Platelet Count 169 Red Blood Count 2.98 #L Red Cell Distribution Width 17.8 H White Blood Count 8.3 # Anion Gap 22 H Blood Urea Nitrogen 39 H Calcium Level 7.4 L Carbon Dioxide Level 18 L Chloride Level 108 Creatinine 2.38 H Glucose Level 186 Potassium Level 4.8 Sodium Level 143 Activated Partial Thromboplast Time 20.1 L INR International Normalized Ratio 1.01 Prothrombin Time 13.3 Prothrombin Time Ratio 1.0 Bedside Glucose 194 Test 07/13/16 12:16 Bedside Glucose 264 H Medications Medications Current Medications Ondansetron HCl (Zofran Inj) 4 mg Q6H PRN IV NAUSEA AND/OR VOMITING Last administered on 07/06/16 11:46; Admin Dose 4 MG; Start 07/03/16 at 12:00 Acetaminophen (Tylenol Tab) 650 mg Q6H PRN PO PAIN LEVEL 1-3 OR FEVER Last administered on 07/08/16 22:37; Admin Dose 650 MG; Start 07/03/16 at 12:00 Acetaminophen (Tylenol Supp) 650 mg Q6H PRN [place] PAIN LEVEL 1-3 OR FEVER; Start 07/03/16 at 12:00 Acetaminophen/ Hydrocodone Bitart ([place] (5/325)) 2 tab Q6H PRN PO SEVERE PAIN LEVEL 7-10 Last administered on 07/09/16 14:04; Admin Dose 2 TAB; Start at 12:00 Docusate Sodium (Colace) 100 mg Q12H PRN PO CONSTIPATION Last administered on 12:59; Admin Dose 100 MG; Start 07/03/16 at 12:00 Magnesium Hydroxide (Milk Of Mag) 30 ml DAILY PRN PO CONSTIPATION Last administered on 07/10/16 12:59; Admin Dose 30 ML; Start 07/03/16 at 12:00 Bisacodyl (Dulcolax Supp) 10 mg DAILY PRN [place] CONSTIPATION Last administered on 07/11/16 14:30; Admin Dose 10 MG; Start 07/03/16 at 12:00 Hydralazine HCl (Apresoline) 10 mg Q4 PRN IV sbp>160; Start 07/03/16 at 12:00 Aripiprazole (Abilify) 2 mg DAILY PO Last administered on 07/13/16 09:25; Admin Dose 2 MG; Start 07/04/16 at 09:00 Aspirin (Halfprin) 81 mg DAILY PO Last administered on 07/13/16 09:25; Admin Dose 81 MG; Start 07/04/16 at 09:00 Benazepril HCl (Lotensin) 5 mg BID PO Last administered on 07/12/16 22:41; Admin Dose 5 MG; Start 07/03/16 at 21:00 Carbidopa/Levodopa (Sinemet (25/ )) 1 tab DAILY PO Last administered on 07/13 09:25; Admin Dose 1 TAB; Start 07/04/16 at 09:00 Carvedilol (Coreg) 12.5 mg BID PO Last administered on 07/12/16 22:40; Admin Dose 12.5 MG; Start 07/03/16 at 21:00 Clopidogrel Bisulfate (plaVIX) 75 mg DAILY PO Last administered on 07/13/16 09 :25; Admin Dose 75 MG; Start 07/04/16 at 09:00 Fluticasone Propionate (Flonase 0.05% Nasal) 1 spray BID NASAL Last administered on 07/13/16 09:36; Admin Dose 1 SPRAY; Start 07/03/16 at 21:00 Loratadine (Claritin) 10 mg DAILY PO Last administered on 07/13/16 09:25; Admin Dose 10 MG; Start 07/04/16 at 09:00 Meclizine HCl (Antivert) 25 mg Q12H PRN PO DIZZINESS; Start 07/03/16 at 14:30 Sertraline HCl (Zoloft) 50 mg DAILY PO Last administered on 07/13/16 09:25; Admin Dose 50 MG; Start 07/04/16 at 09:00 Atorvastatin Calcium (Lipitor) 10 mg QHS PO Last administered on 07/12/16 22: 41; Admin Dose 10 MG; Start 07/03/16 at 21:00 Miscellaneous Information 1 ea NOTE XX ; Start 07/03/16 at 15:00 Glucose (Glutose) 15 gm Q15M PRN PO DECREASED GLUCOSE; Start 07/03/16 at 15:00 Glucose (Glutose) 22.5 gm Q15M PRN PO DECREASED GLUCOSE; Start 07/03/16 at 15: 00 Dextrose (D50w Syringe) 25 ml Q15M PRN IV DECREASED GLUCOSE; Start 07/03/16 at 15:00 Dextrose (D50w Syringe) 50 ml Q15M PRN IV DECREASED GLUCOSE; Start 07/03/16 at 15:00 Glucagon (Glucagen) 1 mg Q15M PRN IM DECREASED GLUCOSE; Start 07/03/16 at 15:00 Glucose (Glutose) 15 gm Q15M PRN BUCC[place] DECREASED GLUCOSE; Start 07/03/16 at 15 :00 Citric Acid/ Sodium Citrate (Bicitra) 30 ml BID PO Last administered on 09:21; Admin Dose 30 ML; Start 07/04/16 at 21:00 Heparin Sodium (Porcine) (Heparin (5000 Units/0.5 ml)) 5,000 unit BID SC Last administered on 07/13/16 09:18; Admin Dose 5,000 UNIT; Start 07/05/16 at 21:00 Pantoprazole (Protonix Tab) 40 mg DAILY@06 PO Last administered on 07/13/16 06 :58; Admin Dose 40 MG; Start 07/07/16 at 06:00 Diagnostic Test (Pha) (Accucheck) 1 ea 02 XX Last administered on 07/13/16 02: 00; Admin Dose 1 EA; Start 07/08/16 at 02:00 Alprazolam (Xanax) 0.25 mg BID PO Last administered on 07/13/16 09:25; Admin Dose 0.25 MG; Start 07/07/16 at 11:30 Al Hydrox/Mg Hydrox/Simethicone (Mag-Al Plus) 30 ml Q6H PRN PO GASTROINTESTINAL UPSET Last administered on 07/07/16 11:35; Admin Dose 30 ML; Start 07/07/16 at 11:30 Acetaminophen/ Hydrocodone Bitart ([place] (5/325)) 1 tab Q3H PRN PO PAIN; Start 07/12/16 at 14:00 Hydromorphone HCl 1 mg 1 mg Q2H PRN IV PAIN Last administered on 07/13/16 07: 00; Admin Dose 1 MG; Start 07/12/16 at 16:30 Dextrose/Sodium Chloride (D5-1/2ns) 1,000 ml @ 75 mls/hr [id number] IV Last administered on 07/13/16 06:58; Admin Dose 75 MLS/HR; Start 07/12/16 at 17:00 FERNANDO ALFARO MD Jul 13, 2016 13:01
[2016-07-13] MEDS: MEGESTROL (40 MG/ML) 10ML CUP PO SCH (13:20)
[2016-07-13] MEDS: HYDROCODONE/APAP (5/325) TAB PO PRN ×2 (13:27→21:30)
--- NOTE | 2016-07-13 16:58 | CONS ---
Date/Time of Note Date/Time of Note DATE: 07/13/16 TIME: 16:56 Assessment/Plan Assessment/Plan Chief Complaint/Hosp Course IMPRESSION: 1. Patient has [id number] kidney disease, acute renal failure due to prerenal azotemia.BETTER 2. Patient has underlying chronic kidney disease, possibly hypertensive nephrosclerosis, and possible diabetic nephropathy. 3. Hyperkalemia, worsened by aldosterone antagonist.NOW SEPTRA OFF 4. Anemia of possibly chronic kidney disease. 5. Metabolic acidosis. better 6. The patient also is status post fall with right hip fracture. PER ORTHO 7. Coronary artery disease with coronary artery bypass graft. 8. History of hysterectomy. 9. History of breast cancer, surgery on treatment. 10. Underlying chronic tubular interstitial nephritis. 11. proteinuria. 12 UTI 13 S/P RT HIP HEMIARTHROPLASTY plan ck bmp avoid nephrotoxic drugs BMP Problems: Consultation Date/Type/Reason Admit Date/Time Jul 03, 2016 at 11:46 Initial Consult Date 07/03/16 Type of Consultation: RENAL Referring Provider: JUNI NUNEZ 24 HR Interval Summary Constitutional: no complaints, No chills, No febrile Exam/Review of Systems Vital Signs Vitals Vital Signs Date Time Temp Pulse Resp B/P Pulse Ox O2 Delivery O2 Flow Rate FiO2 07/13/16 16:20 98.6 90 18 110/65 94 07/13/16 08:00 Nasal Cannula 2.0 Intake and Output 07/12/16 07/12/16 07/13/16 15:00 23:00 07:00 Intake Total 1400 ml 450 ml 200 ml Output Total 500 ml 1000 ml Balance 900 ml 450 ml -800 ml Exam Neck: supple Gastrointestinal: bowel sounds (+), soft Extremities: No edema Results Result Diagram: 07/13/16 0630 07/13/16 0631 Results 24 hrs Laboratory Tests Test 07/12/16 17:18 07/12/16 22:37 07/13/16 03:29 07/13/16 06:30 Bedside Glucose 162 236 H 183 Basophils # 0.0 Basophils % 0.1 Eosinophils # 0.0 Eosinophils % 0.0 Hematocrit 27.8 #L Hemoglobin 8.5 #L Lymphocytes # 0.7 L Lymphocytes % 8.8 L Mean Corpuscular Hemoglobin 28.5 L Mean Corpuscular Hemoglobin Concent 30.6 L Mean Corpuscular Volume 93.3 Mean Platelet Volume 11.3 H Monocytes # 1.2 H Monocytes % 14.8 H Neutrophils # 6.3 Neutrophils % 75.3 Nucleated Red Blood Cells # 0.0 Nucleated Red Blood Cells % 0.0 Platelet Count 169 Red Blood Count 2.98 #L Red Cell Distribution Width 17.8 H White Blood Count 8.3 # Test 07/13/16 06:31 07/13/16 06:32 07/13/16 07:48 07/13/16 12:16 Anion Gap 22 H Blood Urea Nitrogen 39 H Calcium Level 7.4 L Carbon Dioxide Level 18 L Chloride Level 108 Creatinine 2.38 H Glucose Level 186 Potassium Level 4.8 Sodium Level 143 Activated Partial Thromboplast Time 20.1 L INR International Normalized Ratio 1.01 Prothrombin Time 13.3 Prothrombin Time Ratio 1.0 Bedside Glucose 194 264 H Test 07/13/16 16:51 Bedside Glucose 222 H Medications Medications Current Medications Ondansetron HCl (Zofran Inj) 4 mg Q6H PRN IV NAUSEA AND/OR VOMITING Last administered on 07/06/16 11:46; Admin Dose 4 MG; Start 07/03/16 at 12:00 Acetaminophen (Tylenol Tab) 650 mg Q6H PRN PO PAIN LEVEL 1-3 OR FEVER Last administered on 07/08/16 22:37; Admin Dose 650 MG; Start 07/03/16 at 12:00 Acetaminophen (Tylenol Supp) 650 mg Q6H PRN [place] PAIN LEVEL 1-3 OR FEVER; Start 07/03/16 at 12:00 Acetaminophen/ Hydrocodone Bitart ([place] (5/325)) 2 tab Q6H PRN PO SEVERE PAIN LEVEL 7-10 Last administered on 07/13/16 13:27; Admin Dose 2 TAB; Start at 12:00 Docusate Sodium (Colace) 100 mg Q12H PRN PO CONSTIPATION Last administered on 12:59; Admin Dose 100 MG; Start 07/03/16 at 12:00 Magnesium Hydroxide (Milk Of Mag) 30 ml DAILY PRN PO CONSTIPATION Last administered on 07/10/16 12:59; Admin Dose 30 ML; Start 07/03/16 at 12:00 Bisacodyl (Dulcolax Supp) 10 mg DAILY PRN [place] CONSTIPATION Last administered on 07/11/16 14:30; Admin Dose 10 MG; Start 07/03/16 at 12:00 Hydralazine HCl (Apresoline) 10 mg Q4 PRN IV sbp>160; Start 07/03/16 at 12:00 Aripiprazole (Abilify) 2 mg DAILY PO Last administered on 07/13/16 09:25; Admin Dose 2 MG; Start 07/04/16 at 09:00 Aspirin (Halfprin) 81 mg DAILY PO Last administered on 07/13/16 09:25; Admin Dose 81 MG; Start 07/04/16 at 09:00 Carbidopa/Levodopa (Sinemet ()) 1 tab DAILY PO Last administered on 07/13 09:25; Admin Dose 1 TAB; Start 07/04/16 at 09:00 Clopidogrel Bisulfate (plaVIX) 75 mg DAILY PO Last administered on 07/13/16 09 :25; Admin Dose 75 MG; Start 07/04/16 at 09:00 Fluticasone Propionate (Flonase 0.05% Nasal) 1 spray BID NASAL Last administered on 07/13/16 09:36; Admin Dose 1 SPRAY; Start 07/03/16 at 21:00 Loratadine (Claritin) 10 mg DAILY PO Last administered on 07/13/16 09:25; Admin Dose 10 MG; Start 07/04/16 at 09:00 Meclizine HCl (Antivert) 25 mg Q12H PRN PO DIZZINESS; Start 07/03/16 at 14:30 Sertraline HCl (Zoloft) 50 mg DAILY PO Last administered on 07/13/16 09:25; Admin Dose 50 MG; Start 07/04/16 at 09:00 Atorvastatin Calcium (Lipitor) 10 mg QHS PO Last administered on 07/12/16 22: 41; Admin Dose 10 MG; Start 07/03/16 at 21:00 Miscellaneous Information 1 ea NOTE XX ; Start 07/03/16 at 15:00 Glucose (Glutose) 15 gm Q15M PRN PO DECREASED GLUCOSE; Start 07/03/16 at 15:00 Glucose (Glutose) 22.5 gm Q15M PRN PO DECREASED GLUCOSE; Start 07/03/16 at 15: 00 Dextrose (D50w Syringe) 25 ml Q15M PRN IV DECREASED GLUCOSE; Start 07/03/16 at 15:00 Dextrose (D50w Syringe) 50 ml Q15M PRN IV DECREASED GLUCOSE; Start 07/03/16 at 15:00 Glucagon (Glucagen) 1 mg Q15M PRN IM DECREASED GLUCOSE; Start 07/03/16 at 15:00 Glucose (Glutose) 15 gm Q15M PRN BUCCAL DECREASED GLUCOSE; Start 07/03/16 at 15 :00 Citric Acid/ Sodium Citrate (Bicitra) 30 ml BID PO Last administered on 09:21; Admin Dose 30 ML; Start 07/04/16 at 21:00 Heparin Sodium (Porcine) (Heparin (5000 Units/0.5 ml)) 5,000 unit BID SC Last administered on 07/13/16 09:18; Admin Dose 5,000 UNIT; Start 07/05/16 at 21:00 Pantoprazole (Protonix Tab) 40 mg DAILY@06 PO Last administered on 07/13/16 06 :58; Admin Dose 40 MG; Start 07/07/16 at 06:00 Diagnostic Test (Pha) (Accucheck) 1 ea 02 XX Last administered on 07/13/16 02: 00; Admin Dose 1 EA; Start 07/08/16 at 02:00 Alprazolam (Xanax) 0.25 mg BID PO Last administered on 07/13/16 09:25; Admin Dose 0.25 MG; Start 07/07/16 at 11:30 Al Hydrox/Mg Hydrox/Simethicone (Mag-Al Plus) 30 ml Q6H PRN PO GASTROINTESTINAL UPSET Last administered on 07/07/16 11:35; Admin Dose 30 ML; Start 07/07/16 at 11:30 Acetaminophen/ Hydrocodone Bitart ([place] (5/325)) 1 tab Q3H PRN PO PAIN; Start 07/12/16 at 14:00 Hydromorphone HCl 1 mg 1 mg Q2H PRN IV PAIN Last administered on 07/13/16 07: 00; Admin Dose 1 MG; Start 07/12/16 at 16:30 Dextrose/Sodium Chloride (D5-1/2ns) 1,000 ml @ 75 mls/hr [id number] IV Last administered on 07/13/16 06:58; Admin Dose 75 MLS/HR; Start 07/12/16 at 17:00 Carvedilol (Coreg) 3.125 mg BID PO ; Start 07/13/16 at 21:00 PERRY ALVARES MD Jul 13, 2016 16:58
[2016-07-13] MEDS: ACETAMINOPHEN 325 MG TAB PO PRN (20:43)
[2016-07-13] MEDS: ATORVASTATIN 10 MG TAB PO SCH (20:43)
[2016-07-14] VITALS (10 sets, daily range): BP systolic 80–112; BP diastolic 33–57; PULSE 75–93; RESP 18–20
[2016-07-14] MEDS: ACCUCHECK XX SCH (02:00)
[2016-07-14] MEDS: DEXTROSE 5%-0.45% NACL 1,000 ML IV SCH (03:19)
[2016-07-14] MEDS: PANTOPRAZOLE (EC) 40 MG TAB PO SCH (05:47)
[2016-07-14] MEDS: HYDROCODONE/APAP (5/325) TAB PO PRN ×2 (06:05→18:05)
[2016-07-14 06:21] LABS: ADD SCAN DIFF NO
[2016-07-14 06:26] LABS: BASOPHILS % 0.2 % (0.0-2.0); EOSINOPHILS % 0.7 % (0.0-7.0); HEMATOCRIT 21.9 % (37.0-47.0); LYMPHOCYTES # 0.8 10^3/ul (0.8-2.9); LYMPHOCYTES % 14.8 % (15.0-51.0); MEAN CORPUSCULAR HEMOGLOBIN 28.1 pg (29.0-33.0); MEAN PLATELET VOLUME 11.4 fl (7.4-10.4); MONOCYTE # 0.8 10^3/ul (0.3-0.9); MONOCYTES % 14.4 % (0.0-11.0); NEUTROPHIL # 3.7 10^3/ul (1.6-7.5); NEUTROPHILS % 68.8 % (39.0-77.0); PLATELET COUNT 127 10^3/UL (140-415); RED BLOOD COUNT 2.49 10^6/ul (4.20-5.40); RED CELL DISTRIBUTION WIDTH 17.7 % (11.5-14.5); WHITE BLOOD COUNT 5.4 10^3/ul (4.8-10.8)
[2016-07-14 06:30] LABS: POTASSIUM 3.8 mmol/L (3.5-5.1)
[2016-07-14 06:33] LABS: CREATININE 2.71 mg/dl (0.44-1.00)
[2016-07-14 06:34] LABS: CALCIUM 6.9 mg/dl (8.4-10.2)
[2016-07-14] MEDS ORDERED: SOD CHLORIDE 0.9% 500 ML IV ONE (07:30)
[2016-07-14] MEDS: ARIPIPRAZOLE 2 MG TAB PO SCH (09:26)
[2016-07-14] MEDS: FLUTICASONE 0.05% 16 GM NAS SPRAY NASAL SCH ×2 (09:26→20:57)
[2016-07-14] MEDS: LORATADINE 10 MG TAB PO SCH (09:27)
[2016-07-14] MEDS: CARBIDOPA/LEVODOPA (25/100) TAB PO SCH (09:27)
[2016-07-14] MEDS: ALPRAZOLAM 0.25 MG TAB PO SCH ×2 (09:27→20:56)
[2016-07-14] MEDS: ASPIRIN (EC) 81 MG TAB PO SCH (09:27)
[2016-07-14] MEDS: CLOPIDOGREL 75 MG TAB PO SCH (09:27)
[2016-07-14] MEDS: CITRIC ACID/NA CITRATE 30 ML CUP PO SCH ×2 (09:27→20:56)
[2016-07-14] MEDS: SERTRALINE 50 MG TAB PO SCH (09:27)
[2016-07-14] MEDS: HEPARIN 5,000 UNIT/0.5 ML SYG SC SCH ×2 (09:31→20:51)
[2016-07-14] MEDS: INSULIN ASPART [NOVOLOG] 3 ML PEN SC SCH ×4 (09:50→20:51)
--- NOTE | 2016-07-14 13:17 | PN ---
Date/Time of Note Date/Time of Note DATE: 07/14/16 TIME: 13:14 Assessment/Plan VTE Prophylaxis VTE Prophylaxis Intervention: heparin Lines/Catheters IV Catheter Type (from Nrs): Peripheral IV Urinary Cath still in place: Yes Reason Cath still needed: other (indicate) Assessment/Plan Assessment/Plan 1. Right hip fracture s/p fall at home . s/p hemiarthroplasty of the right hip , follow up with ortho 2. Severe anemia, acute on chronic, blood loss, 2 units PRBC 07/14/2016, follow up with CBC 3. 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 Patient does follow-up with her physician Dr. Valenzuela as outpatient for this issue. She is status post radiation therapy reportedly 3 weeks ago. Patient follow-up with outpatient oncologist 4. Renal failure, likely CKD, follow up with BMP 5. History of CAD with previous CABG. We'll resume patient's antiplatelet therapy 6. Essential hypertension. hold meds 7. History of dyslipidemia. Follow-up on fasting lipid panel. 8. Reported history of diabetes. on insulin 9.. Influenza A positive. Continue on Tamiflu 10. E.Coli UTI on IV levaquin 11. DVT prophylaxis: heparin 12. Hypotension due to anemia, transfusion and IVF Subjective 24 Hr Interval Summary Free Text/Dictation pain on right hip. no fever or chills Exam/Review of Systems Vital Signs Vitals Vital Signs Date Time Temp Pulse Resp B/P Pulse Ox O2 Delivery O2 Flow Rate FiO2 07/14/16 12:12 98.1 85 20 87/41 94 07/14/16 06:11 Nasal Cannula 2.0 Intake and Output 07/13/16 07/13/16 07/14/16 15:00 23:00 07:00 Intake Total 500 ml 625 ml Output Total 640 ml 365 ml Balance -140 ml 260 ml Exam Constitutional: alert, oriented, well developed Psych: nl mood/affect, no complaints Head: normocephalic Eyes: EOMI, PERRL, nl conjunctiva, nl lids ENMT: nl external ears & nose, nl lips & teeth, nl nasal mucosa & septum Neck: non-tender, supple Respiratory: clear to auscultation, normal air movement, No congested cough, No crackles/rales, No diminished breath sounds, No intercostal retraction, No labored breathing, No other, No respirations, No tactile fremitus, No wheezing Cardiovascular: nl pulses, regular rate and rhythm, No S3, No S4, No bruits, No diastolic murmur, No edema, No gallop, No irregular rhythm, No jugular venous distention (JVD), No murmurs/extra sounds, No other, No rub, No systolic murmur Gastrointestinal: nl liver, spleen, non-tender, soft, No ascites, No bowel sounds, No distended, No firm, No hepatomegaly, No mass , No other, No rebound or guarding, No splenomegaly, No surgical scars, No tender Musculoskeletal: nl extremities to inspection Extremities: normal pulses, other (right hip no hematoma or active bleeding), No calf tenderness, No clubbing, No cyanosis, No edema, No palpable cord, No pitting pedal edema 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, nl mental status, nl speech, nl strength Skin: nl turgor Lymph: nl lymph nodes Results Result Diagram: 07/14/16 0558 07/14/16 0558 Results 24 hrs Laboratory Tests Test 07/13/16 16:51 07/13/16 20:47 07/14/16 02:23 07/14/16 05:58 Bedside Glucose 222 H 208 219 Anion Gap 18 H Basophils # 0.0 Basophils % 0.2 Blood Urea Nitrogen 42 H Calcium Level 6.9 L Carbon Dioxide Level 21 Chloride Level 103 Creatinine 2.71 H Eosinophils # 0.0 Eosinophils % 0.7 Glucose Level 152 Hematocrit 21.9 #L Hemoglobin 7.0 L Lymphocytes # 0.8 Lymphocytes % 14.8 L Mean Corpuscular Hemoglobin 28.1 L Mean Corpuscular Hemoglobin Concent 32.0 Mean Corpuscular Volume 88.0 Mean Platelet Volume 11.4 H Monocytes # 0.8 Monocytes % 14.4 H Neutrophils # 3.7 Neutrophils % 68.8 Nucleated Red Blood Cells # 0.0 Nucleated Red Blood Cells % 0.0 Platelet Count 127 #L Potassium Level 3.8 Red Blood Count 2.49 L Red Cell Distribution Width 17.7 H Sodium Level 138 White Blood Count 5.4 # Test 07/14/16 08:17 Bedside Glucose 158 Medications Medications Current Medications Ondansetron HCl (Zofran Inj) 4 mg Q6H PRN IV NAUSEA AND/OR VOMITING Last administered on 07/06/16t 11:46; Admin Dose 4 MG; Start 07/03/16 at 12:00 Acetaminophen (Tylenol Tab) 650 mg Q6H PRN PO PAIN LEVEL 1-3 OR FEVER Last administered on 07/13/16 20:43; Admin Dose 650 MG; Start 07/03/16 at 12:00 Acetaminophen (Tylenol Supp) 650 mg Q6H PRN IN PAIN LEVEL 1-3 OR FEVER; Start 07/03/16 at 12:00 Acetaminophen/ Hydrocodone Bitart ([place] (5/325)) 2 tab Q6H PRN PO SEVERE PAIN LEVEL 7-10 Last administered on 07/14/16 06:05; Admin Dose 2 TAB; Start at 12:00 Docusate Sodium (Colace) 100 mg Q12H PRN PO CONSTIPATION Last administered on 12:59; Admin Dose 100 MG; Start 07/03/16 at 12:00 Magnesium Hydroxide (Milk Of Mag) 30 ml DAILY PRN PO CONSTIPATION Last administered on 07/10/16 12:59; Admin Dose 30 ML; Start 07/03/16 at 12:00 Bisacodyl (Dulcolax Supp) 10 mg DAILY PRN IN CONSTIPATION Last administered on 07/11/16 14:30; Admin Dose 10 MG; Start 07/03/16 at 12:00 Hydralazine HCl (Apresoline) 10 mg Q4 PRN IV sbp>160; Start 07/03/16 at 12:00 Aripiprazole (Abilify) 2 mg DAILY PO Last administered on 07/14/16 09:26; Admin Dose 2 MG; Start 07/04/16 at 09:00 Aspirin (Halfprin) 81 mg DAILY PO Last administered on 07/14/16 09:27; Admin Dose 81 MG; Start 07/04/16 at 09:00 Carbidopa/Levodopa (Sinemet (25/ 100)) 1 tab DAILY PO Last administered on 07/14 09:27; Admin Dose 1 TAB; Start 07/04/16 at 09:00 Clopidogrel Bisulfate (plaVIX) 75 mg DAILY PO Last administered on 07/14/16 09 :27; Admin Dose 75 MG; Start 07/04/16 at 09:00 Fluticasone Propionate (Flonase 0.05% Nasal) 1 spray BID NASAL Last administered on 07/14/16 09:26; Admin Dose 1 SPRAY; Start 07/03/16 at 21:00 Loratadine (Claritin) 10 mg DAILY PO Last administered on 07/14/16 09:27; Admin Dose 10 MG; Start 07/04/16 at 09:00 Meclizine HCl (Antivert) 25 mg Q12H PRN PO DIZZINESS; Start 07/03/16 at 14:30 Sertraline HCl (Zoloft) 50 mg DAILY PO Last administered on 07/14/16 09:27; Admin Dose 50 MG; Start 07/04/16 at 09:00 Atorvastatin Calcium (Lipitor) 10 mg QHS PO Last administered on 07/13/16 20: 43; Admin Dose 10 MG; Start 07/03/16 at 21:00 Miscellaneous Information 1 ea NOTE XX ; Start 07/03/16 at 15:00 Glucose (Glutose) 15 gm Q15M PRN PO DECREASED GLUCOSE; Start 07/03/16 at 15:00 Glucose (Glutose) 22.5 gm Q15M PRN PO DECREASED GLUCOSE; Start 07/03/16 at 15: 00 Dextrose (D50w Syringe) 25 ml Q15M PRN IV DECREASED GLUCOSE; Start 07/03/16 at 15:00 Dextrose (D50w Syringe) 50 ml Q15M PRN IV DECREASED GLUCOSE; Start 07/03/16 at 15:00 Glucagon (Glucagen) 1 mg Q15M PRN IM DECREASED GLUCOSE; Start 07/03/16 at 15:00 Glucose (Glutose) 15 gm Q15M PRN BUCCAL DECREASED GLUCOSE; Start 07/03/16 at 15 :00 Citric Acid/ Sodium Citrate (Bicitra) 30 ml BID PO Last administered on 09:27; Admin Dose 30 ML; Start 07/04/16 at 21:00 Heparin Sodium (Porcine) (Heparin (5000 Units/0.5 ml)) 5,000 unit BID SC Last administered on 07/14/16 09:31; Admin Dose 5,000 UNIT; Start 07/05/16 at 21:00 Pantoprazole (Protonix Tab) 40 mg DAILY@06 PO Last administered on 07/14/16 05 :47; Admin Dose 40 MG; Start 07/07/16 at 06:00 Diagnostic Test (Pha) (Accucheck) 1 ea 02 XX Last administered on 07/14/16 02: 00; Admin Dose 1 EA; Start 07/08/16 at 02:00 Alprazolam (Xanax) 0.25 mg BID PO Last administered on 07/14/16 09:27; Admin Dose 0.25 MG; Start 07/07/16 at 11:30 Al Hydrox/Mg Hydrox/Simethicone (Mag-Al Plus) 30 ml Q6H PRN PO GASTROINTESTINAL UPSET Last administered on 07/07/16 11:35; Admin Dose 30 ML; Start 07/07/16 at 11:30 Acetaminophen/ Hydrocodone Bitart ([place] (5/325)) 1 tab Q3H PRN PO PAIN; Start 07/12/16 at 14:00 Hydromorphone HCl 1 mg 1 mg Q2H PRN IV PAIN Last administered on 07/13/16 07: 00; Admin Dose 1 MG; Start 07/12/16 at 16:30 Dextrose/Sodium Chloride (D5-1/2ns) 1,000 ml @ 75 mls/hr [id number] IV Last administered on 07/14/16 03:19; Admin Dose 75 MLS/HR; Start 07/12/16 at 17:00 Carvedilol (Coreg) 3.125 mg BID PO ; Start 07/13/16 at 21:00 FERNANDO ALFARO MD Jul 14, 2016 13:17
[2016-07-14] MEDS: MEGESTROL (40 MG/ML) 10ML CUP PO SCH (13:47)
--- NOTE | 2016-07-14 15:49 | RADRPT ---
Vent Rate: 89 bpm RR Interval: 0 msec TX Interval: 124 msec QRS Duration: 98 msec QT Interval: 438 msec QTC Interval: 532 msec P-R-T Vivian: 37 - -69 - 31 degrees Normal sinus rhythm Left axis deviation Prolonged QT Abnormal ECG Electronically Signed By: Hong Roldan [id number]
[2016-07-14] MEDS: NS + KCL 20 MEQ 1,000 ML IV SCH ×2 (19:00→23:00)
[2016-07-14] MEDS: ATORVASTATIN 10 MG TAB PO SCH (20:56)
--- NOTE | 2016-07-14 22:19 | CONS ---
Date/Time of Note Date/Time of Note DATE: 07/14/16 TIME: 22:17 Assessment/Plan Assessment/Plan Chief Complaint/Hosp Course IMPRESSION: 1. Patient has adnxj-co-owobenh kidney disease, acute renal failure due to prerenal azotemia.BETTER 2. Patient has underlying chronic kidney disease, possibly hypertensive nephrosclerosis, and possible diabetic nephropathy. 3. Hyperkalemia, worsened by aldosterone antagonist.NOW SEPTRA OFF 4. Anemia of possibly chronic kidney disease. ang post op anemia 5. Metabolic acidosis. better 6. The patient also is status post fall with right hip fracture. PER ORTHO 7. Coronary artery disease with coronary artery bypass graft. 8. History of hysterectomy. 9. History of breast cancer, surgery on treatment. 10. Underlying chronic tubular interstitial nephritis. 11. proteinuria. 12 UTI 13 S/P RT HIP HEMIARTHROPLASTY 14 inflenzaa plan ck bmp avoid nephrotoxic drugs BMP pebc per pcp Problems: Consultation Date/Type/Reason Admit Date/Time Jul 03, 2016 at 11:46 Initial Consult Date 07/03/16 Type of Consultation: RENAL Referring Provider: JUNI NUNEZ 24 HR Interval Summary Constitutional: no complaints, No chills Exam/Review of Systems Vital Signs Vitals Vital Signs Date Time Temp Pulse Resp B/P Pulse Ox O2 Delivery O2 Flow Rate FiO2 07/14/16 20:00 93 07/14/16 15:48 98.8 20 81/41 95 07/14/16 08:00 Nasal Cannula 2.0 Intake and Output 07/13/16 07/13/16 07/14/16 15:00 23:00 07:00 Intake Total 500 ml 625 ml Output Total 640 ml 365 ml Balance -140 ml 260 ml Exam Neck: supple Respiratory: clear to auscultation Cardiovascular: regular rate and rhythm Gastrointestinal: non-tender, soft Extremities: No edema Results Result Diagram: 07/14/16 0558 07/14/16 0558 Results 24 hrs Laboratory Tests Test 07/14/16 02:23 07/14/16 05:58 07/14/16 08:17 07/14/16 12:48 Bedside Glucose 219 158 239 H Anion Gap 18 H Basophils # 0.0 Basophils % 0.2 Blood Urea Nitrogen 42 H Calcium Level 6.9 L Carbon Dioxide Level 21 Chloride Level 103 Creatinine 2.71 H Eosinophils # 0.0 Eosinophils % 0.7 Glucose Level 152 Hematocrit 21.9 #L Hemoglobin 7.0 L Lymphocytes # 0.8 Lymphocytes % 14.8 L Mean Corpuscular Hemoglobin 28.1 L Mean Corpuscular Hemoglobin Concent 32.0 Mean Corpuscular Volume 88.0 Mean Platelet Volume 11.4 H Monocytes # 0.8 Monocytes % 14.4 H Neutrophils # 3.7 Neutrophils % 68.8 Nucleated Red Blood Cells # 0.0 Nucleated Red Blood Cells % 0.0 Platelet Count 127 #L Potassium Level 3.8 Red Blood Count 2.49 L Red Cell Distribution Width 17.7 H Sodium Level 138 White Blood Count 5.4 # Test 07/14/16 18:12 07/14/16 20:17 Bedside Glucose 219 178 Medications Medications Current Medications Ondansetron HCl (Zofran Inj) 4 mg Q6H PRN IV NAUSEA AND/OR VOMITING Last administered on 07/06/16 11:46; Admin Dose 4 MG; Start 07/03/16 at 12:00 Acetaminophen (Tylenol Tab) 650 mg Q6H PRN PO PAIN LEVEL 1-3 OR FEVER Last administered on 07/13/16 20:43; Admin Dose 650 MG; Start 07/03/16 at 12:00 Acetaminophen (Tylenol Supp) 650 mg Q6H PRN [place] PAIN LEVEL 1-3 OR FEVER; Start 07/03/16 at 12:00 Acetaminophen/ Hydrocodone Bitart ([place] (5/325)) 2 tab Q6H PRN PO SEVERE PAIN LEVEL 7-10 Last administered on 07/14/16 06:05; Admin Dose 2 TAB; Start at 12:00 Docusate Sodium (Colace) 100 mg Q12H PRN PO CONSTIPATION Last administered on 12:59; Admin Dose 100 MG; Start 07/03/16 at 12:00 Magnesium Hydroxide (Milk Of Mag) 30 ml DAILY PRN PO CONSTIPATION Last administered on 07/10/16 12:59; Admin Dose 30 ML; Start 07/03/16 at 12:00 Bisacodyl (Dulcolax Supp) 10 mg DAILY PRN LA CONSTIPATION Last administered on 07/11/16 14:30; Admin Dose 10 MG; Start 07/03/16 at 12:00 Aripiprazole (Abilify) 2 mg DAILY PO Last administered on 07/14/16 09:26; Admin Dose 2 MG; Start 07/04/16 at 09:00 Aspirin (Halfprin) 81 mg DAILY PO Last administered on 07/14/16 09:27; Admin Dose 81 MG; Start 07/04/16 at 09:00 Carbidopa/Levodopa (Sinemet (25/ 100)) 1 tab DAILY PO Last administered on 07/14 09:27; Admin Dose 1 TAB; Start 07/04/16 at 09:00 Clopidogrel Bisulfate (plaVIX) 75 mg DAILY PO Last administered on 07/14/16 09 :27; Admin Dose 75 MG; Start 07/04/16 at 09:00 Fluticasone Propionate (Flonase 0.05% Nasal) 1 spray BID NASAL Last administered on 07/14/16 20:57; Admin Dose 1 SPRAY; Start 07/03/16 at 21:00 Loratadine (Claritin) 10 mg DAILY PO Last administered on 07/14/16 09:27; Admin Dose 10 MG; Start 07/04/16 at 09:00 Meclizine HCl (Antivert) 25 mg Q12H PRN PO DIZZINESS; Start 07/03/16 at 14:30 Sertraline HCl (Zoloft) 50 mg DAILY PO Last administered on 07/14/16 09:27; Admin Dose 50 MG; Start 07/04/16 at 09:00 Atorvastatin Calcium (Lipitor) 10 mg QHS PO Last administered on 07/14/16 20: 56; Admin Dose 10 MG; Start 07/03/16 at 21:00 Miscellaneous Information 1 ea NOTE XX ; Start 07/03/16 at 15:00 Glucose (Glutose) 15 gm Q15M PRN PO DECREASED GLUCOSE; Start 07/03/16 at 15:00 Glucose (Glutose) 22.5 gm Q15M PRN PO DECREASED GLUCOSE; Start 07/03/16 at 15: 00 Dextrose (D50w Syringe) 25 ml Q15M PRN IV DECREASED GLUCOSE; Start 07/03/16 at 15:00 Dextrose (D50w Syringe) 50 ml Q15M PRN IV DECREASED GLUCOSE; Start 07/03/16 at 15:00 Glucagon (Glucagen) 1 mg Q15M PRN IM DECREASED GLUCOSE; Start 07/03/16 at 15:00 Glucose (Glutose) 15 gm Q15M PRN BUCCAL DECREASED GLUCOSE; Start 07/03/16 at 15 :00 Citric Acid/ Sodium Citrate (Bicitra) 30 ml BID PO Last administered on 20:56; Admin Dose 30 ML; Start 07/04/16 at 21:00 Heparin Sodium (Porcine) (Heparin (5000 Units/0.5 ml)) 5,000 unit BID SC Last administered on 07/14/16 09:31; Admin Dose 5,000 UNIT; Start 07/05/16 at 21:00 Pantoprazole (Protonix Tab) 40 mg DAILY@06 PO Last administered on 07/14/16 05 :47; Admin Dose 40 MG; Start 07/07/16 at 06:00 Diagnostic Test (Pha) (Accucheck) 1 ea 02 XX Last administered on 07/14/16 02: 00; Admin Dose 1 EA; Start 07/08/16 at 02:00 Alprazolam (Xanax) 0.25 mg BID PO Last administered on 07/14/16 20:56; Admin Dose 0.25 MG; Start 07/07/16 at 11:30 Al Hydrox/Mg Hydrox/Simethicone (Mag-Al Plus) 30 ml Q6H PRN PO GASTROINTESTINAL UPSET Last administered on 07/07/16 11:35; Admin Dose 30 ML; Start 07/07/16 at 11:30 Acetaminophen/ Hydrocodone Bitart ([place] (5/325)) 1 tab Q3H PRN PO PAIN Last administered on 07/14/16 18:05; Admin Dose 1 TAB; Start 07/12/16 at 14:00 Hydromorphone HCl 1 mg 1 mg Q2H PRN IV PAIN Last administered on 07/13/16 07: 00; Admin Dose 1 MG; Start 07/12/16 at 16:30 Potassium Chloride/Sodium Chloride (NS-KCl 20 Meq) 1,000 ml @ 75 mls/hr [id number] IV ; Start 07/14/16 at 15:00 PERRY ALVARES MD Jul 14, 2016 22:19
[2016-07-15] VITALS (12 sets, daily range): BP systolic 100–125; BP diastolic 54–60; PULSE 81–90; RESP 16–20
[2016-07-15] MEDS: HYDROmorphONE 1 MG/ML SYG IV PRN ×5 (00:30→17:22)
[2016-07-15] MEDS: ACCUCHECK XX SCH (02:00)
[2016-07-15] MEDS: PANTOPRAZOLE (EC) 40 MG TAB PO SCH (05:45)
[2016-07-15] MEDS: HEPARIN 5,000 UNIT/0.5 ML SYG SC SCH ×3 (09:00→21:14)
[2016-07-15] MEDS: CITRIC ACID/NA CITRATE 30 ML CUP PO SCH ×2 (09:29→23:22)
[2016-07-15] MEDS: CLOPIDOGREL 75 MG TAB PO SCH (09:29)
[2016-07-15] MEDS: ASPIRIN (EC) 81 MG TAB PO SCH (09:29)
[2016-07-15] MEDS: ARIPIPRAZOLE 2 MG TAB PO SCH (09:29)
[2016-07-15] MEDS: LORATADINE 10 MG TAB PO SCH (09:29)
[2016-07-15] MEDS: SERTRALINE 50 MG TAB PO SCH (09:30)
[2016-07-15] MEDS: ALPRAZOLAM 0.25 MG TAB PO SCH ×2 (09:30→21:13)
[2016-07-15] MEDS: CARBIDOPA/LEVODOPA (25/100) TAB PO SCH (09:30)
[2016-07-15 09:35] LABS: ADD SCAN DIFF NO
[2016-07-15] MEDS: FLUTICASONE 0.05% 16 GM NAS SPRAY NASAL SCH ×2 (09:38→23:21)
[2016-07-15 09:40] LABS: BASOPHILS % 0.2 % (0.0-2.0); EOSINOPHILS % 0.2 % (0.0-7.0); HEMATOCRIT 31.9 % (37.0-47.0); HEMOGLOBIN 10.4 g/dl (12.0-16.0); LYMPHOCYTES # 0.8 10^3/ul (0.8-2.9); LYMPHOCYTES % 9.8 % (15.0-51.0); MEAN CORPUSCULAR HEMOGLOBIN 29.3 pg (29.0-33.0); MEAN CORPUSCULAR HGB CONC 32.6 g/dl (32.0-37.0); MEAN CORPUSCULAR VOLUME 89.9 fl (82.0-101.0); MEAN PLATELET VOLUME 11.4 fl (7.4-10.4); MONOCYTE # 0.8 10^3/ul (0.3-0.9); MONOCYTES % 10.2 % (0.0-11.0); NEUTROPHIL # 6.5 10^3/ul (1.6-7.5); NEUTROPHILS % 78.1 % (39.0-77.0); RED BLOOD COUNT 3.55 10^6/ul (4.20-5.40); RED CELL DISTRIBUTION WIDTH 16.4 % (11.5-14.5); WHITE BLOOD COUNT 8.3 10^3/ul (4.8-10.8)
[2016-07-15 09:52] LABS: POTASSIUM 4.1 mmol/L (3.5-5.1)
[2016-07-15 09:53] LABS: PLATELET COUNT 155 10^3/UL (140-415)
[2016-07-15 09:54] LABS: CREATININE 2.86 mg/dl (0.44-1.00)
[2016-07-15 09:55] LABS: CALCIUM 6.8 mg/dl (8.4-10.2)
[2016-07-15] MEDS: INSULIN ASPART [NOVOLOG] 3 ML PEN SC SCH ×4 (10:34→21:23)
[2016-07-15] MEDS ORDERED: HEP5KI SC (12:50)
[2016-07-15] MEDS ORDERED: HYDR-3498 PO (12:50)
[2016-07-15] MEDS ORDERED: NOVO3I SC (12:50)
[2016-07-15] MEDS: MEGESTROL (40 MG/ML) 10ML CUP PO SCH (12:58)
--- NOTE | 2016-07-15 13:11 | DS ---
Date/Time of Note Date/Time of Note DATE: 07/15/16 TIME: 12:57 Discharge Summary Admission/Discharge Info Admit Date/Time Jul 03, 2016 at 11:46 Discharge Date/Time Final Diagnosis 1. Right hip fracture s/p fall at home . s/p hemiarthroplasty of the right hip , follow up with ortho Dr. Byrd 2. Severe anemia, acute on chronic, blood loss, 2 units PRBC 07/14/2016, follow up with PCP 3. 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 Patient does follow-up with her physician Dr. Valenzuela as outpatient for this issue. She is status post radiation therapy reportedly 3 weeks ago. Patient follow-up with outpatient oncologist 4. Renal failure, likely CKD, follow up with PCP 5. History of CAD with previous CABG. stable 6. Essential hypertension. restart coreg 7. History of dyslipidemia. Follow-up on fasting lipid panel. 8. Reported history of diabetes. on Januvia, and ISS 9.. Influenza A positive. treated 10. E.Coli UTI, treated Patient Condition: Stable Consults In Anna Byrd MD-ortho Procedures Hemiarthroplasty of the right hip, 07/12/2016 Hx of Present Illness This is a 80-year-old female with past medical history of reported left-sided breast cancer status post mastectomy as well as bone metastasis, myocardial infarction roughly 2003 with CABG, depression, diabetes, hypertension, dyslipidemia, obesity, who came to [facility] after suffering from a mechanical fall. According to the patient she was going to the restroom at roughly 12 AM last night. She reported that she tripped and fell. She denies any loss of consciousness or chest pain or shortness of breath or any dizziness or headache associated with it. She did report that she only fell on her right hip and subsequently went to [facility] for further evaluation. She did have pelvic x-ray that did show acute right subcapital femoral fracture. She was also noted to be slightly anemic with hemoglobin of 8.6 and hematocrit 25.3. She did have potassium of 6.4 BUN of 53 and a creatinine of 2.98. Initial troponin was 0.012. Of note patient did state that she does follow-up with her primary care physician as outpatient (Dr. Valenzuela: [phone]). Hospital Course X-ray indicates nondisplaced right subcapital femoral fracture that she had hemiarthroplasty on 07/12/2016. Patient haa anemia after the surgery with H/H 7/ 21.9 on 07/14/2016 and patient had hypotension that coreg/lisinipril were stopped. Patient got two units PRBCS transfusion, H/H improves to 10.4/30.9 on . I will resume coreg, adjust dosage and monitor blood pressure. Patient has chronic kidney disease. Last BUN/Cr are 40/2.65 on 07/15/2016. Metformin is stopped for renal failure. Januvia dosage will be 25 mg daily. Home Meds Active Scripts Insulin Aspart* (Novolog Insulin Pen*) 100 Unit/Ml Soln, 0 UNIT SC WITH MEALS BEDTIME for 30 Days Prov:FERNANDO ALFARO MD 07/15/16 Hydrocodone Bit-Acetaminophen (Hydrocodone Bit-APAP) 5-325MG Tablet, 1 TAB PO Q3H Y for PAIN for 20 Days, TAB Prov:FERNANDO ALFARO MD 07/15/16 Heparin Sod (Porcine)* (Heparin*) 5,000 Unit/0.5 Ml Soln, 5000 UNIT SC BID for 10 Days Prov:FERNANDO ALFARO MD 07/15/16 Reported Medications Alprazolam* (Xanax*) 0.25 Mg Tablet, 0.25 MG PO Q12, TAB 07/07/16 Levalbuterol* (Xopenex* HFA) 15 Gm Inha, 2 PUFFS INH Q6 Y for WHEEZING AND SOB, INHALER 07/03/16 Esomeprazole Mag Trihydrate (Nexium) 40 Mg Capsule.dr, 40 MG PO DAILY, #30 CAP 07/03/16 Meclizine Hcl* (Meclizine Hcl*) 25 Mg Tablet, 25 MG PO BID Y for DIZZINESS, TAB 07/03/16 Loratadine* (Loratadine*) 10 Mg Tablet, 10 MG PO DAILY, #30 TAB 07/03/16 Fluticasone Propionate* (Fluticasone Propionate* Nasal) 50 Mcg/[place] - 16 Gm [place].susp, 1 SPRAY NASAL BID, #1 BOTTLE TO EACH NOSTRIL 07/03/16 Aspirin (Low Dose Aspirin) 81 Mg Tablet.dr, 81 MG PO DAILY, #30 TAB 07/03/16 Megestrol Acetate* (Megestrol Acetate*) 400 Mg/10 Ml Susp, 400 MG PO BEFORE LUNCH, ML 07/03/16 Carbidopa-Levodopa* (Sinemet*) 25-100 Mg Tab, 1 TAB PO DAILY, TAB DOSAGE IS 10/100MG DAILY 07/03/16 Ferrous Sulfate (Ferrous Sulfate) 220 Mg/5 Ml Solution, 220 MG PO BID 07/03/16 Clopidogrel Bisulfate (Clopidogrel) 75 Mg Tablet, 75 MG PO DAILY, #30 TAB 07/03/16 Benazepril Hcl* (Benazepril Hcl*) 5 Mg Tablet, 5 MG PO BID, #60 TAB 07/03/16 Rosuvastatin Calcium* (Crestor*) 10 Mg Tablet, 10 MG PO QHS, #30 TAB 07/03/16 Spironolactone* (Aldactone*) 25 Mg Tablet, 25 MG PO DAILY, #30 TAB 07/03/16 Carvedilol* (Carvedilol*) 12.5 Mg Tablet, 12.5 MG PO BID, #60 TAB 07/03/16 Sertraline Hcl* (Zoloft*) 50 Mg Tablet, 50 MG PO DAILY, #30 TAB 07/03/16 Aripiprazole* (Abilify*) 2 Mg Tablet, 2 MG PO DAILY, #30 TAB 07/03/16 Discontinued Reported Medications Sitagliptin Phos/Metformin HCl (Janumet 50-500 mg Tablet) 1 Each Tablet, 1 EACH PO BID, TAB 07/03/16 Follow-up Plan Follow up: 1. PCP one week 2. Dr. Byrd in one week 3. Nephrology 4. Oncology Pending Labs Laboratory Tests Test 07/14/16 18:12 07/14/16 20:17 07/15/16 09:10 07/15/16 09:42 Bedside Glucose 219mg/dL (70-220) 178mg/dL (70-220) 167mg/dL (70-220) Anion Gap 22 (8-16) Basophils # 0.010^3/ul (0.0-0.1) Basophils % 0.2% (0.0-2.0) Blood Urea Nitrogen 42mg/dl (7-20) Calcium Level 6.8mg/dl (8.4-10.2) Carbon Dioxide Level 18mmol/L (21-31) Chloride Level 108mmol/L (97-110) Creatinine 2.86mg/dl (0.44-1.00) Eosinophils # 0.010^3/ul (0.0-0.5) Eosinophils % 0.2% (0.0-7.0) Glucose Level 158mg/dl (70-220) Hematocrit 31.9% (37.0-47.0) Hemoglobin 10.4g/dl (12.0-16.0) Lymphocytes # 0.810^3/ul (0.8-2.9) Lymphocytes % 9.8% (15.0-51.0) Mean Corpuscular Hemoglobin 29.3pg (29.0-33.0) Mean Corpuscular Hemoglobin Concent 32.6g/dl (32.0-37.0) Mean Corpuscular Volume 89.9fl (82.0-101.0) Mean Platelet Volume 11.4fl (7.4-10.4) Monocytes # 0.810^3/ul (0.3-0.9) Monocytes % 10.2% (0.0-11.0) Neutrophils # 6.510^3/ul (1.6-7.5) Neutrophils % 78.1% (39.0-77.0) Nucleated Red Blood Cells # 0.010^3/ul (0.0-0.0) Nucleated Red Blood Cells % 0.0/100WBC (0.0-0.0) Platelet Count 67539^3/UL (140-415) Potassium Level 4.1mmol/L (3.5-5.1) Red Blood Count 3.5510^6/ul (4.20-5.40) Red Cell Distribution Width 16.4% (11.5-14.5) Sodium Level 144mmol/L (135-144) White Blood Count 8.310^3/ul (4.8-10.8) Test 07/15/16 10:31 Bedside Glucose 150mg/dL (70-220) FERNANDO ALFARO MD Jul 15, 2016 13:08
[2016-07-15] MEDS ORDERED: SITA25TA3 PO (13:13)
[2016-07-15] MEDS: HYDROCODONE/APAP (5/325) TAB PO PRN ×3 (16:01→17:08)
[2016-07-15] MEDS: NS + KCL 20 MEQ 1,000 ML IV SCH (17:40)
--- NOTE | 2016-07-15 20:34 | CONS ---
Date/Time of Note Date/Time of Note DATE: 07/15/16 TIME: 20:33 Assessment/Plan Assessment/Plan Chief Complaint/Hosp Course IMPRESSION: 1. Patient has [id number] kidney disease, acute renal failure due to prerenal azotemia.BETTER 2. Patient has underlying chronic kidney disease, possibly hypertensive nephrosclerosis, and possible diabetic nephropathy. 3. Hyperkalemia, worsened by aldosterone antagonist.NOW SEPTRA OFF 4. Anemia of possibly chronic kidney disease. ang post op anemia 5. Metabolic acidosis. better 6. The patient also is status post fall with right hip fracture. PER ORTHO 7. Coronary artery disease with coronary artery bypass graft. 8. History of hysterectomy. 9. History of breast cancer, surgery on treatment. 10. Underlying chronic tubular interstitial nephritis. 11. proteinuria. 12 UTI 13 S/P RT HIP HEMIARTHROPLASTY 14 influenza a plan ck bmp avoid nephrotoxic drugs BMP Problems: Consultation Date/Type/Reason Admit Date/Time Jul 03, 2016 at 11:46 Initial Consult Date 07/03/16 Type of Consultation: RENAL Referring Provider: JUNI NUNEZ 24 HR Interval Summary Constitutional: no complaints Exam/Review of Systems Vital Signs Vitals Vital Signs Date Time Temp Pulse Resp B/P Pulse Ox O2 Delivery O2 Flow Rate FiO2 07/15/16 20:25 98.4 85 16 112/56 94 07/15/16 08:05 Nasal Cannula 2.0 Intake and Output 07/14/16 07/14/16 07/15/16 15:00 23:00 07:00 Intake Total 1180 ml 1175 ml Output Total 1000 ml 950 ml Balance 180 ml 225 ml Exam Respiratory: clear to auscultation Cardiovascular: regular rate and rhythm Gastrointestinal: soft Extremities: No edema Results Result Diagram: 07/15/16 0910 07/15/16 0910 Results 24 hrs Laboratory Tests Test 07/15/16 09:10 07/15/16 09:42 07/15/16 10:31 07/15/16 12:57 Anion Gap 22 H Basophils # 0.0 Basophils % 0.2 Blood Urea Nitrogen 42 H Calcium Level 6.8 L Carbon Dioxide Level 18 L Chloride Level 108 Creatinine 2.86 H Eosinophils # 0.0 Eosinophils % 0.2 Glucose Level 158 Hematocrit 31.9 #L Hemoglobin 10.4 #L Lymphocytes # 0.8 Lymphocytes % 9.8 L Mean Corpuscular Hemoglobin 29.3 Mean Corpuscular Hemoglobin Concent 32.6 Mean Corpuscular Volume 89.9 Mean Platelet Volume 11.4 H Monocytes # 0.8 Monocytes % 10.2 Neutrophils # 6.5 Neutrophils % 78.1 H Nucleated Red Blood Cells # 0.0 Nucleated Red Blood Cells % 0.0 Platelet Count 155 # Potassium Level 4.1 Red Blood Count 3.55 #L Red Cell Distribution Width 16.4 H Sodium Level 144 White Blood Count 8.3 # Bedside Glucose 167 150 199 Test 07/15/16 17:45 Bedside Glucose 203 Medications Medications Current Medications Ondansetron HCl (Zofran Inj) 4 mg Q6H PRN IV NAUSEA AND/OR VOMITING Last administered on 07/06/16 11:46; Admin Dose 4 MG; Start 07/03/16 at 12:00 Acetaminophen (Tylenol Tab) 650 mg Q6H PRN PO PAIN LEVEL 1-3 OR FEVER Last administered on 07/13/16 20:43; Admin Dose 650 MG; Start 07/03/16 at 12:00 Acetaminophen (Tylenol Supp) 650 mg Q6H PRN [place] PAIN LEVEL 1-3 OR FEVER; Start 07/03/16 at 12:00 Acetaminophen/ Hydrocodone Bitart ([place] (5/325)) 2 tab Q6H PRN PO SEVERE PAIN LEVEL 7-10 Last administered on 07/15/16 17:08; Admin Dose 2 TAB; Start at 12:00 Docusate Sodium (Colace) 100 mg Q12H PRN PO CONSTIPATION Last administered on 12:59; Admin Dose 100 MG; Start 07/03/16 at 12:00 Magnesium Hydroxide (Milk Of Mag) 30 ml DAILY PRN PO CONSTIPATION Last administered on 07/10/16 12:59; Admin Dose 30 ML; Start 07/03/16 at 12:00 Bisacodyl (Dulcolax Supp) 10 mg DAILY PRN [place] CONSTIPATION Last administered on 07/11/16 14:30; Admin Dose 10 MG; Start 07/03/16 at 12:00 Aripiprazole (Abilify) 2 mg DAILY PO Last administered on 07/15/16 09:29; Admin Dose 2 MG; Start 07/04/16 at 09:00 Aspirin (Halfprin) 81 mg DAILY PO Last administered on 07/15/16 09:29; Admin Dose 81 MG; Start 07/04/16 at 09:00 Carbidopa/Levodopa (Sinemet (25/ 100)) 1 tab DAILY PO Last administered on 09:30; Admin Dose 1 TAB; Start 07/04/16 at 09:00 Clopidogrel Bisulfate (plaVIX) 75 mg DAILY PO Last administered on 07/15/16 09: 29; Admin Dose 75 MG; Start 07/04/16 at 09:00 Fluticasone Propionate (Flonase 0.05% Nasal) 1 spray BID NASAL Last administered on 07/15/16 09:38; Admin Dose 1 SPRAY; Start 07/03/16 at 21:00 Loratadine (Claritin) 10 mg DAILY PO Last administered on 07/15/16 09:29; Admin Dose 10 MG; Start 07/04/16 at 09:00 Meclizine HCl (Antivert) 25 mg Q12H PRN PO DIZZINESS; Start 07/03/16 at 14:30 Sertraline HCl (Zoloft) 50 mg DAILY PO Last administered on 07/15/16 09:30; Admin Dose 50 MG; Start 07/04/16 at 09:00 Atorvastatin Calcium (Lipitor) 10 mg QHS PO Last administered on 07/14/16 20: 56; Admin Dose 10 MG; Start 07/03/16 at 21:00 Miscellaneous Information 1 ea NOTE XX ; Start 07/03/16 at 15:00 Glucose (Glutose) 15 gm Q15M PRN PO DECREASED GLUCOSE; Start 07/03/16 at 15:00 Glucose (Glutose) 22.5 gm Q15M PRN PO DECREASED GLUCOSE; Start 07/03/16 at 15: 00 Dextrose (D50w Syringe) 25 ml Q15M PRN IV DECREASED GLUCOSE; Start 07/03/16 at 15:00 Dextrose (D50w Syringe) 50 ml Q15M PRN IV DECREASED GLUCOSE; Start 07/03/16 at 15:00 Glucagon (Glucagen) 1 mg Q15M PRN IM DECREASED GLUCOSE; Start 07/03/16 at 15:00 Glucose (Glutose) 15 gm Q15M PRN BUCCAL DECREASED GLUCOSE; Start 07/03/16 at 15 :00 Citric Acid/ Sodium Citrate (Bicitra) 30 ml BID PO Last administered on 09:29; Admin Dose 30 ML; Start 07/04/16 at 21:00 Heparin Sodium (Porcine) (Heparin (5000 Units/0.5 ml)) 5,000 unit BID SC Last administered on 07/15/16 12:14; Admin Dose 5,000 UNIT; Start 07/05/16 at 21:00 Pantoprazole (Protonix Tab) 40 mg DAILY@06 PO Last administered on 07/15/16 05: 45; Admin Dose 40 MG; Start 07/07/16 at 06:00 Diagnostic Test (Pha) (Accucheck) 1 ea 02 XX Last administered on 07/14/16 02: 00; Admin Dose 1 EA; Start 07/08/16 at 02:00 Alprazolam (Xanax) 0.25 mg BID PO Last administered on 07/15/16 09:30; Admin Dose 0.25 MG; Start 07/07/16 at 11:30 Al Hydrox/Mg Hydrox/Simethicone (Mag-Al Plus) 30 ml Q6H PRN PO GASTROINTESTINAL UPSET Last administered on 07/07/16 11:35; Admin Dose 30 ML; Start 07/07/16 at 11:30 Acetaminophen/ Hydrocodone Bitart ([place] (5/325)) 1 tab Q3H PRN PO PAIN Last administered on 07/15/16 16:01; Admin Dose 1 TAB; Start 07/12/16 at 14:00 Hydromorphone HCl 1 mg 1 mg Q2H PRN IV PAIN Last administered on 07/15/16 17:22 ; Admin Dose 1 MG; Start 07/12/16 at 16:30 Potassium Chloride/Sodium Chloride (NS-KCl 20 Meq) 1,000 ml @ 75 mls/hr [id number] IV Last administered on 07/14/16 23:00; Admin Dose 75 MLS/HR; Start at 15:00 Carvedilol (Coreg) 12.5 mg BID PO Last administered on 07/15/16 15:02; Admin Dose 12.5 MG; Start 07/15/16 at 13:30 PERRY ALVARES MD Jul 15, 2016 20:34
[2016-07-15] MEDS: ATORVASTATIN 10 MG TAB PO SCH (21:13)
[2016-07-16] VITALS (12 sets, daily range): BP systolic 111–146; BP diastolic 55–68; PULSE 79–86; RESP 18–20
[2016-07-16] MEDS: HYDROCODONE/APAP (5/325) TAB PO PRN ×2 (02:04→08:48)
[2016-07-16] MEDS: ACCUCHECK XX SCH (02:09)
[2016-07-16] MEDS: PANTOPRAZOLE (EC) 40 MG TAB PO SCH (06:21)
[2016-07-16] MEDS: NS + KCL 20 MEQ 1,000 ML IV SCH ×2 (06:23→20:20)
[2016-07-16 06:57] LABS: POTASSIUM 4.4 mmol/L (3.5-5.1)
[2016-07-16 06:59] LABS: CREATININE 2.83 mg/dl (0.44-1.00)
[2016-07-16 07:00] LABS: CALCIUM 6.9 mg/dl (8.4-10.2)
[2016-07-16] MEDS: INSULIN ASPART [NOVOLOG] 3 ML PEN SC SCH ×4 (07:36→21:00)
[2016-07-16] MEDS: HEPARIN 5,000 UNIT/0.5 ML SYG SC SCH ×2 (08:34→21:15)
[2016-07-16] MEDS: ASPIRIN (EC) 81 MG TAB PO SCH (08:35)
[2016-07-16] MEDS: SERTRALINE 50 MG TAB PO SCH (08:36)
[2016-07-16] MEDS: CARBIDOPA/LEVODOPA (25/100) TAB PO SCH (08:36)
[2016-07-16] MEDS: LORATADINE 10 MG TAB PO SCH (08:36)
[2016-07-16] MEDS: CLOPIDOGREL 75 MG TAB PO SCH (08:36)
[2016-07-16] MEDS: ALPRAZOLAM 0.25 MG TAB PO SCH ×2 (08:36→21:11)
[2016-07-16] MEDS: CITRIC ACID/NA CITRATE 30 ML CUP PO SCH ×2 (08:37→21:11)
[2016-07-16] MEDS: ARIPIPRAZOLE 2 MG TAB PO SCH (08:37)
[2016-07-16] MEDS: FLUTICASONE 0.05% 16 GM NAS SPRAY NASAL SCH ×2 (08:38→21:13)
[2016-07-16] MEDS: MEGESTROL (40 MG/ML) 10ML CUP PO SCH (11:59)
--- NOTE | 2016-07-16 14:30 | PN ---
Date/Time of Note Date/Time of Note DATE: 07/16/16 TIME: 14:28 Assessment/Plan VTE Prophylaxis VTE Prophylaxis Intervention: heparin Lines/Catheters IV Catheter Type (from [place]): [place] Urinary Cath still in place: Yes Reason Cath still needed: other (indicate) Assessment/Plan Assessment/Plan 1. Right hip fracture s/p fall at home . s/p hemiarthroplasty of the right hip , follow up with ortho Dr. Byrd 2. Severe anemia, acute on chronic, blood loss, 2 units PRBC 07/14/2016, follow up with PCP 3. 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 Patient does follow-up with her physician Dr. Valenzuela as outpatient for this issue. She is status post radiation therapy reportedly 3 weeks ago. Patient follow-up with outpatient oncologist 4. Renal failure, likely CKD, follow up with PCP 5. History of CAD with previous CABG. stable 6. Essential hypertension. restart coreg 7. History of dyslipidemia. Follow-up on fasting lipid panel. 8. Reported history of diabetes. on Mayuv, and ISS 9.. Influenza A positive. treated 10. E.Coli UTI, treated 11. Awaiting for acute rehab evaluation 12. DVT prophylaxis: heparin Exam/Review of Systems Vital Signs Vitals Vital Signs Date Time Temp Pulse Resp B/P Pulse Ox O2 Delivery O2 Flow Rate FiO2 07/16/16 12:52 84 07/16/16 11:46 98.5 20 140/62 95 07/16/16 07:56 Nasal Cannula 2.0 Intake and Output 07/15/16 07/15/16 07/16/16 15:00 23:00 07:00 Intake Total 1020 ml 400 ml Output Total 550 ml 900 ml Balance 470 ml -500 ml Results Result Diagram: 07/15/16 0910 07/16/16 0607 Results 24 hrs Laboratory Tests Test 07/15/16 17:45 07/15/16 21:17 07/16/16 02:08 07/16/16 06:07 Bedside Glucose 203 204 173 Anion Gap 19 H Blood Urea Nitrogen 42 H Calcium Level 6.9 L Carbon Dioxide Level 20 L Chloride Level 110 Creatinine 2.83 H Glucose Level 158 Potassium Level 4.4 Sodium Level 145 H Test 07/16/16 07:27 07/16/16 11:50 Bedside Glucose 138 165 Medications Medications Current Medications Ondansetron HCl (Zofran Inj) 4 mg Q6H PRN IV NAUSEA AND/OR VOMITING Last administered on 07/06/16 11:46; Admin Dose 4 MG; Start 07/03/16 at 12:00 Acetaminophen (Tylenol Tab) 650 mg Q6H PRN PO PAIN LEVEL 1-3 OR FEVER Last administered on 07/13/16 20:43; Admin Dose 650 MG; Start 07/03/16 at 12:00 Acetaminophen (Tylenol Supp) 650 mg Q6H PRN [place] PAIN LEVEL 1-3 OR FEVER; Start 07/03/16 at 12:00 Acetaminophen/ Hydrocodone Bitart ([place] (5/325)) 2 tab Q6H PRN PO SEVERE PAIN LEVEL 7-10 Last administered on 07/16/16 08:48; Admin Dose 2 TAB; Start at 12:00 Docusate Sodium (Colace) 100 mg Q12H PRN PO CONSTIPATION Last administered on 12:59; Admin Dose 100 MG; Start 07/03/16 at 12:00 Magnesium Hydroxide (Milk Of Mag) 30 ml DAILY PRN PO CONSTIPATION Last administered on 07/10/16 12:59; Admin Dose 30 ML; Start 07/03/16 at 12:00 Bisacodyl (Dulcolax Supp) 10 mg DAILY PRN [place] CONSTIPATION Last administered on 07/11/16 14:30; Admin Dose 10 MG; Start 07/03/16 at 12:00 Aripiprazole (Abilify) 2 mg DAILY PO Last administered on 07/16/16 08:37; Admin Dose 2 MG; Start 07/04/16 at 09:00 Aspirin (Halfprin) 81 mg DAILY PO Last administered on 07/16/16 08:35; Admin Dose 81 MG; Start 07/04/16 at 09:00 Carbidopa/Levodopa (Sinemet (25/ 100)) 1 tab DAILY PO Last administered on 08:36; Admin Dose 1 TAB; Start 07/04/16 at 09:00 Clopidogrel Bisulfate (plaVIX) 75 mg DAILY PO Last administered on 07/16/16 08: 36; Admin Dose 75 MG; Start 07/04/16 at 09:00 Fluticasone Propionate (Flonase 0.05% Nasal) 1 spray BID NASAL Last administered on 07/16/16 08:38; Admin Dose 1 SPRAY; Start 07/03/16 at 21:00 Loratadine (Claritin) 10 mg DAILY PO Last administered on 07/16/16 08:36; Admin Dose 10 MG; Start 07/04/16 at 09:00 Meclizine HCl (Antivert) 25 mg Q12H PRN PO DIZZINESS; Start 07/03/16 at 14:30 Sertraline HCl (Zoloft) 50 mg DAILY PO Last administered on 07/16/16 08:36; Admin Dose 50 MG; Start 07/04/16 at 09:00 Atorvastatin Calcium (Lipitor) 10 mg QHS PO Last administered on 07/15/16 21:13 ; Admin Dose 10 MG; Start 07/03/16 at 21:00 Miscellaneous Information 1 ea NOTE XX ; Start 07/03/16 at 15:00 Glucose (Glutose) 15 gm Q15M PRN PO DECREASED GLUCOSE; Start 07/03/16 at 15:00 Glucose (Glutose) 22.5 gm Q15M PRN PO DECREASED GLUCOSE; Start 07/03/16 at 15: 00 Dextrose (D50w Syringe) 25 ml Q15M PRN IV DECREASED GLUCOSE; Start 07/03/16 at 15:00 Dextrose (D50w Syringe) 50 ml Q15M PRN IV DECREASED GLUCOSE; Start 07/03/16 at 15:00 Glucagon (Glucagen) 1 mg Q15M PRN IM DECREASED GLUCOSE; Start 07/03/16 at 15:00 Glucose (Glutose) 15 gm Q15M PRN BUCCAL DECREASED GLUCOSE; Start 07/03/16 at 15 :00 Citric Acid/ Sodium Citrate (Bicitra) 30 ml BID PO Last administered on 08:37; Admin Dose 30 ML; Start 07/04/16 at 21:00 Heparin Sodium (Porcine) (Heparin (5000 Units/0.5 ml)) 5,000 unit BID SC Last administered on 07/16/16 08:34; Admin Dose 5,000 UNIT; Start 07/05/16 at 21:00 Pantoprazole (Protonix Tab) 40 mg DAILY@06 PO Last administered on 07/16/16 06: 21; Admin Dose 40 MG; Start 07/07/16 at 06:00 Diagnostic Test (Pha) (Accucheck) 1 ea 02 XX Last administered on 07/16/16 02: 09; Admin Dose 1 EA; Start 07/08/16 at 02:00 Alprazolam (Xanax) 0.25 mg BID PO Last administered on 07/16/16 08:36; Admin Dose 0.25 MG; Start 07/07/16 at 11:30 Al Hydrox/Mg Hydrox/Simethicone (Mag-Al Plus) 30 ml Q6H PRN PO GASTROINTESTINAL UPSET Last administered on 07/07/16 11:35; Admin Dose 30 ML; Start 07/07/16 at 11:30 Acetaminophen/ Hydrocodone Bitart ([place] (5/325)) 1 tab Q3H PRN PO PAIN Last administered on 07/15/16 16:01; Admin Dose 1 TAB; Start 07/12/16 at 14:00 Hydromorphone HCl 1 mg 1 mg Q2H PRN IV PAIN Last administered on 07/15/16 17:22 ; Admin Dose 1 MG; Start 07/12/16 at 16:30 Potassium Chloride/Sodium Chloride (NS-KCl 20 Meq) 1,000 ml @ 75 mls/hr [id number] IV Last administered on 07/16/16 06:23; Admin Dose 75 MLS/HR; Start at 15:00 Carvedilol (Coreg) 12.5 mg BID PO Last administered on 07/16/16 08:35; Admin Dose 12.5 MG; Start 07/15/16 at 13:30 FERNANDO ALFARO MD Jul 16, 2016 14:29
[2016-07-16] MEDS: HYDROmorphONE 1 MG/ML SYG IV PRN (14:37)
--- NOTE | 2016-07-16 17:06 | CONS ---
Date/Time of Note Date/Time of Note DATE: 07/16/16 TIME: 17:05 Assessment/Plan Assessment/Plan Chief Complaint/Hosp Course IMPRESSION: 1. Patient has [id number] kidney disease, acute renal failure due to prerenal azotemia.BETTER 2. Patient has underlying chronic kidney disease, possibly hypertensive nephrosclerosis, and possible diabetic nephropathy. 3. Hyperkalemia, worsened by aldosterone antagonist.NOW SEPTRA OFF 4. Anemia of possibly chronic kidney disease. ang post op anemia 5. Metabolic acidosis. better 6. The patient also is status post fall with right hip fracture. PER ORTHO 7. Coronary artery disease with coronary artery bypass graft. 8. History of hysterectomy. 9. History of breast cancer, surgery on treatment. 10. Underlying chronic tubular interstitial nephritis. 11. proteinuria. 12 UTI 13 S/P RT HIP HEMIARTHROPLASTY 14 influenza a plan ck bmp avoid nephrotoxic drugs BMP Problems: Consultation Date/Type/Reason Admit Date/Time Jul 03, 2016 at 11:46 Initial Consult Date 07/03/16 Type of Consultation: RENAL Referring Provider: JUNI NUNEZ 24 HR Interval Summary Constitutional: no complaints, poor po Exam/Review of Systems Vital Signs Vitals Vital Signs Date Time Temp Pulse Resp B/P Pulse Ox O2 Delivery O2 Flow Rate FiO2 07/16/16 15:51 98.3 83 20 111/55 95 07/16/16 07:56 Nasal Cannula 2.0 Intake and Output 07/15/16 07/15/16 07/16/16 15:00 23:00 07:00 Intake Total 1020 ml 400 ml Output Total 550 ml 900 ml Balance 470 ml -500 ml Exam Respiratory: diminished breath sounds Cardiovascular: regular rate and rhythm Gastrointestinal: soft Genitourinary - Female: nl external genitalia Results Result Diagram: 07/15/16 0910 07/16/16 0607 Results 24 hrs Laboratory Tests Test 07/15/16 17:45 07/15/16 21:17 07/16/16 02:08 07/16/16 06:07 Bedside Glucose 203 204 173 Anion Gap 19 H Blood Urea Nitrogen 42 H Calcium Level 6.9 L Carbon Dioxide Level 20 L Chloride Level 110 Creatinine 2.83 H Glucose Level 158 Potassium Level 4.4 Sodium Level 145 H Test 07/16/16 07:27 07/16/16 11:50 Bedside Glucose 138 165 Medications Medications Current Medications Ondansetron HCl (Zofran Inj) 4 mg Q6H PRN IV NAUSEA AND/OR VOMITING Last administered on 07/06/16 11:46; Admin Dose 4 MG; Start 07/03/16 at 12:00 Acetaminophen (Tylenol Tab) 650 mg Q6H PRN PO PAIN LEVEL 1-3 OR FEVER Last administered on 07/13/16 20:43; Admin Dose 650 MG; Start 07/03/16 at 12:00 Acetaminophen (Tylenol Supp) 650 mg Q6H PRN [place] PAIN LEVEL 1-3 OR FEVER; Start 07/03/16 at 12:00 Acetaminophen/ Hydrocodone Bitart ([place] (5/325)) 2 tab Q6H PRN PO SEVERE PAIN LEVEL 7-10 Last administered on 07/16/16 08:48; Admin Dose 2 TAB; Start at 12:00 Docusate Sodium (Colace) 100 mg Q12H PRN PO CONSTIPATION Last administered on 12:59; Admin Dose 100 MG; Start 07/03/16 at 12:00 Magnesium Hydroxide (Milk Of Mag) 30 ml DAILY PRN PO CONSTIPATION Last administered on 07/10/16 12:59; Admin Dose 30 ML; Start 07/03/16 at 12:00 Bisacodyl (Dulcolax Supp) 10 mg DAILY PRN [place] CONSTIPATION Last administered on 07/11/16 14:30; Admin Dose 10 MG; Start 07/03/16 at 12:00 Aripiprazole (Abilify) 2 mg DAILY PO Last administered on 07/16/16 08:37; Admin Dose 2 MG; Start 07/04/16 at 09:00 Aspirin (Halfprin) 81 mg DAILY PO Last administered on 07/16/16 08:35; Admin Dose 81 MG; Start 07/04/16 at 09:00 Carbidopa/Levodopa (Sinemet (25/ 100)) 1 tab DAILY PO Last administered on 08:36; Admin Dose 1 TAB; Start 07/04/16 at 09:00 Clopidogrel Bisulfate (plaVIX) 75 mg DAILY PO Last administered on 07/16/16 08: 36; Admin Dose 75 MG; Start 07/04/16 at 09:00 Fluticasone Propionate (Flonase 0.05% Nasal) 1 spray BID NASAL Last administered on 07/16/16 08:38; Admin Dose 1 SPRAY; Start 07/03/16 at 21:00 Loratadine (Claritin) 10 mg DAILY PO Last administered on 07/16/16 08:36; Admin Dose 10 MG; Start 07/04/16 at 09:00 Meclizine HCl (Antivert) 25 mg Q12H PRN PO DIZZINESS; Start 07/03/16 at 14:30 Sertraline HCl (Zoloft) 50 mg DAILY PO Last administered on 07/16/16 08:36; Admin Dose 50 MG; Start 07/04/16 at 09:00 Atorvastatin Calcium (Lipitor) 10 mg QHS PO Last administered on 07/15/16 21:13 ; Admin Dose 10 MG; Start 07/03/16 at 21:00 Miscellaneous Information 1 ea NOTE XX ; Start 07/03/16 at 15:00 Glucose (Glutose) 15 gm Q15M PRN PO DECREASED GLUCOSE; Start 07/03/16 at 15:00 Glucose (Glutose) 22.5 gm Q15M PRN PO DECREASED GLUCOSE; Start 07/03/16 at 15: 00 Dextrose (D50w Syringe) 25 ml Q15M PRN IV DECREASED GLUCOSE; Start 07/03/16 at 15:00 Dextrose (D50w Syringe) 50 ml Q15M PRN IV DECREASED GLUCOSE; Start 07/03/16 at 15:00 Glucagon (Glucagen) 1 mg Q15M PRN IM DECREASED GLUCOSE; Start 07/03/16 at 15:00 Glucose (Glutose) 15 gm Q15M PRN BUCCAL DECREASED GLUCOSE; Start 07/03/16 at 15 :00 Citric Acid/ Sodium Citrate (Bicitra) 30 ml BID PO Last administered on 08:37; Admin Dose 30 ML; Start 07/04/16 at 21:00 Heparin Sodium (Porcine) (Heparin (5000 Units/0.5 ml)) 5,000 unit BID SC Last administered on 07/16/16 08:34; Admin Dose 5,000 UNIT; Start 07/05/16 at 21:00 Pantoprazole (Protonix Tab) 40 mg DAILY@06 PO Last administered on 07/16/16 06: 21; Admin Dose 40 MG; Start 07/07/16 at 06:00 Diagnostic Test (Pha) (Accucheck) 1 ea 02 XX Last administered on 07/16/16 02: 09; Admin Dose 1 EA; Start 07/08/16 at 02:00 Alprazolam (Xanax) 0.25 mg BID PO Last administered on 07/16/16 08:36; Admin Dose 0.25 MG; Start 07/07/16 at 11:30 Al Hydrox/Mg Hydrox/Simethicone (Mag-Al Plus) 30 ml Q6H PRN PO GASTROINTESTINAL UPSET Last administered on 07/07/16 11:35; Admin Dose 30 ML; Start 07/07/16 at 11:30 Acetaminophen/ Hydrocodone Bitart ([place] (5/325)) 1 tab Q3H PRN PO PAIN Last administered on 07/15/16 16:01; Admin Dose 1 TAB; Start 07/12/16 at 14:00 Hydromorphone HCl 1 mg 1 mg Q2H PRN IV PAIN Last administered on 07/16/16 14:37 ; Admin Dose 1 MG; Start 07/12/16 at 16:30 Potassium Chloride/Sodium Chloride (NS-KCl 20 Meq) 1,000 ml @ 75 mls/hr [id number] IV Last administered on 07/16/16 06:23; Admin Dose 75 MLS/HR; Start at 15:00 Carvedilol (Coreg) 12.5 mg BID PO Last administered on 07/16/16 08:35; Admin Dose 12.5 MG; Start 07/15/16 at 13:30 PERRY ALVARES MD Jul 16, 2016 17:06
[2016-07-16] MEDS: ATORVASTATIN 10 MG TAB PO SCH (21:11)
[2016-07-17] VITALS (10 sets, daily range): BP systolic 127–157; BP diastolic 60–76; PULSE 79–92; RESP 18–22
[2016-07-17] MEDS: HYDROCODONE/APAP (5/325) TAB PO PRN ×3 (02:35→17:24)
[2016-07-17] MEDS: ACCUCHECK XX SCH (02:56)
[2016-07-17] MEDS: PANTOPRAZOLE (EC) 40 MG TAB PO SCH (06:15)
[2016-07-17] MEDS: INSULIN ASPART [NOVOLOG] 3 ML PEN SC SCH ×3 (07:49→17:21)
[2016-07-17 08:07] LABS: POTASSIUM 4.8 mmol/L (3.5-5.1)
[2016-07-17 08:09] LABS: CREATININE 2.34 mg/dl (0.44-1.00)
[2016-07-17 08:10] LABS: CALCIUM 6.9 mg/dl (8.4-10.2)
[2016-07-17] MEDS: NS + KCL 20 MEQ 1,000 ML IV SCH ×2 (09:01→17:20)
[2016-07-17] MEDS: ALPRAZOLAM 0.25 MG TAB PO SCH ×2 (09:08→21:43)
[2016-07-17] MEDS: FLUTICASONE 0.05% 16 GM NAS SPRAY NASAL SCH ×2 (09:08→21:50)
[2016-07-17] MEDS: CLOPIDOGREL 75 MG TAB PO SCH (09:08)
[2016-07-17] MEDS: CITRIC ACID/NA CITRATE 30 ML CUP PO SCH ×2 (09:08→21:42)
[2016-07-17] MEDS: ARIPIPRAZOLE 2 MG TAB PO SCH (09:08)
[2016-07-17] MEDS: CARBIDOPA/LEVODOPA (25/100) TAB PO SCH (09:09)
[2016-07-17] MEDS: ASPIRIN (EC) 81 MG TAB PO SCH (09:09)
[2016-07-17] MEDS: SERTRALINE 50 MG TAB PO SCH (09:09)
[2016-07-17] MEDS: LORATADINE 10 MG TAB PO SCH (09:09)
[2016-07-17] MEDS: HEPARIN 5,000 UNIT/0.5 ML SYG SC SCH ×2 (09:12→21:49)
[2016-07-17] MEDS: MEGESTROL (40 MG/ML) 10ML CUP PO SCH (12:36)
--- NOTE | 2016-07-17 14:02 | DS ---
Date/Time of Note Date/Time of Note DATE: 07/17/16 TIME: 13:58 Discharge Summary Admission/Discharge Info Admit Date/Time Jul 03, 2016 at 11:46 Discharge Date/Time Final Diagnosis 1. Right hip fracture s/p fall at home . s/p hemiarthroplasty of the right hip , follow up with ortho Dr. Byrd 2. Severe anemia, acute on chronic, blood loss, 2 units PRBC 07/14/2016, follow up with PCP 3. 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 Patient does follow-up with her physician Dr. Valenzuela as outpatient for this issue. She is status post radiation therapy reportedly 3 weeks ago. Patient follow-up with outpatient oncologist 4. Renal failure, likely CKD, follow up with PCP 5. History of CAD with previous CABG. stable 6. Essential hypertension. restart coreg 7. History of dyslipidemia. Follow-up on fasting lipid panel. 8. Reported history of diabetes. on Januvia, and ISS 9.. Influenza A positive. treated 10. 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 According to the patient she was going to the restroom at roughly 12 AM last night. She reported that she tripped and fell. She denies any loss of consciousness or chest pain or shortness of breath or any dizziness or headache associated with it. She did report that she only fell on her right hip and subsequently went to [facility] for further evaluation. She did have pelvic x-ray that did show acute right subcapital femoral fracture. She was also noted to be slightly anemic with hemoglobin of 8.6 and hematocrit 25.3. She did have potassium of 6.4 BUN of 53 and a creatinine of 2.98. Initial troponin was 0.012. Of note patient did state that she does follow-up with her primary care physician as outpatient (Dr. Valenzuela: [phone]). Hospital Course X-ray indicates nondisplaced right subcapital femoral fracture that she had hemiarthroplasty on 07/12/2016. Patient haa anemia after the surgery with H/H 7/ 21.9 on 07/14/2016 and patient had hypotension that coreg/lisinipril were stopped. Patient got two units PRBCS transfusion, H/H improves to 10.4/30.9 on . I will resume coreg, adjust dosage and monitor blood pressure. Patient has chronic kidney disease. Last BUN/Cr are 38/2.34 on 07/17/2016. Metformin is stopped for renal failure. Januvia dosage will be 25 mg daily. Home Meds Active Scripts Sitagliptin* (Januvia*) 25 Mg Tablet, 25 MG PO DAILY, #30 TAB Prov:FERNANDO ALFARO MD 07/15/16 Insulin Aspart* (Novolog Insulin Pen*) 100 Unit/Ml Soln, 0 UNIT SC WITH MEALS BEDTIME for 30 Days Prov:FERNANDO ALFARO MD 07/15/16 Hydrocodone Bit-Acetaminophen (Hydrocodone Bit-APAP) 5-325MG Tablet, 1 TAB PO Q3H Y for PAIN for 20 Days, TAB Prov:FERNANDO ALFARO MD 07/15/16 Heparin Sod (Porcine)* (Heparin*) 5,000 Unit/0.5 Ml Soln, 5000 UNIT SC BID for 10 Days Prov:FERNANDO ALFARO MD 07/15/16 Reported Medications Alprazolam* (Xanax*) 0.25 Mg Tablet, 0.25 MG PO Q12, TAB 07/07/16 Levalbuterol* (Xopenex* HFA) 15 Gm Inha, 2 PUFFS INH Q6 Y for WHEEZING AND SOB, INHALER 07/03/16 Esomeprazole Mag Trihydrate (Nexium) 40 Mg Capsule.dr, 40 MG PO DAILY, #30 CAP 07/03/16 Meclizine Hcl* (Meclizine Hcl*) 25 Mg Tablet, 25 MG PO BID Y for DIZZINESS, TAB 07/03/16 Loratadine* (Loratadine*) 10 Mg Tablet, 10 MG PO DAILY, #30 TAB 07/03/16 Fluticasone Propionate* (Fluticasone Propionate* Nasal) 50 Mcg/[place] - 16 Gm [place].susp, 1 SPRAY NASAL BID, #1 BOTTLE TO EACH NOSTRIL 07/03/16 Aspirin (Low Dose Aspirin) 81 Mg Tablet., 81 MG PO DAILY, #30 TAB 07/03/16 Megestrol Acetate* (Megestrol Acetate*) 400 Mg/10 Ml Susp, 400 MG PO BEFORE LUNCH, ML 07/03/16 Carbidopa-Levodopa* (Sinemet*) 25-100 Mg Tab, 1 TAB PO DAILY, TAB DOSAGE IS 10/100MG DAILY 07/03/16 Ferrous Sulfate (Ferrous Sulfate) 220 Mg/5 Ml Solution, 220 MG PO BID 07/03/16 Clopidogrel Bisulfate (Clopidogrel) 75 Mg Tablet, 75 MG PO DAILY, #30 TAB 07/03/16 Rosuvastatin Calcium* (Crestor*) 10 Mg Tablet, 10 MG PO QHS, #30 TAB 07/03/16 Carvedilol* (Carvedilol*) 12.5 Mg Tablet, 12.5 MG PO BID, #60 TAB 07/03/16 Sertraline Hcl* (Zoloft*) 50 Mg Tablet, 50 MG PO DAILY, #30 TAB 07/03/16 Aripiprazole* (Abilify*) 2 Mg Tablet, 2 MG PO DAILY, #30 TAB 07/03/16 Discontinued Reported Medications Sitagliptin Phos/Metformin HCl (Janumet 50-500 mg Tablet) 1 Each Tablet, 1 EACH PO BID, TAB 07/03/16 Follow-up Plan PCP in one week Ortho Dr. Byrd one week Pending Labs Laboratory Tests Test 07/16/16 17:26 07/16/16 21:04 07/17/16 02:41 07/17/16 07:00 Bedside Glucose 159mg/dL (70-220) 165mg/dL (70-220) 168mg/dL (70-220) Anion Gap 19 (8-16) Blood Urea Nitrogen 38mg/dl (7-20) Calcium Level 6.9mg/dl (8.4-10.2) Carbon Dioxide Level 20mmol/L (21-31) Chloride Level 109mmol/L (97-110) Creatinine 2.34mg/dl (0.44-1.00) Glucose Level 135mg/dl (70-220) Potassium Level 4.8mmol/L (3.5-5.1) Sodium Level 143mmol/L (135-144) Test 07/17/16 07:48 07/17/16 12:06 Bedside Glucose 125mg/dL (70-220) 199mg/dL (70-220) FERNANDO ALFARO MD Jul 17, 2016 14:02
--- NOTE | 2016-07-17 17:30 | CONS ---
Date/Time of Note Date/Time of Note DATE: 07/17/16 TIME: 17:30 Assessment/Plan Assessment/Plan Chief Complaint/Hosp Course IMPRESSION: 1. Patient has [id number] kidney disease, acute renal failure due to prerenal azotemia.BETTER 2. Patient has underlying chronic kidney disease, possibly hypertensive nephrosclerosis, and possible diabetic nephropathy. 3. Hyperkalemia, worsened by aldosterone antagonist.NOW SEPTRA OFF 4. Anemia of possibly chronic kidney disease. ang post op anemia 5. Metabolic acidosis. better 6. The patient also is status post fall with right hip fracture. PER ORTHO 7. Coronary artery disease with coronary artery bypass graft. 8. History of hysterectomy. 9. History of breast cancer, surgery on treatment. 10. Underlying chronic tubular interstitial nephritis. 11. proteinuria. 12 UTI 13 S/P RT HIP HEMIARTHROPLASTY 14 influenza a plan ck bmp avoid nephrotoxic drugs BMP Problems: Consultation Date/Type/Reason Admit Date/Time Jul 03, 2016 at 11:46 Initial Consult Date 07/03/16 Type of Consultation: RENAL Referring Provider: JUNI NUNEZ 24 HR Interval Summary Constitutional: no complaints, No febrile Exam/Review of Systems Vital Signs Vitals Vital Signs Date Time Temp Pulse Resp B/P Pulse Ox O2 Delivery O2 Flow Rate FiO2 07/17/16 16:15 92 07/17/16 16:06 98.4 18 147/67 96 07/17/16 08:20 Nasal Cannula 2.0 Intake and Output 07/16/16 07/16/16 07/17/16 15:00 23:00 07:00 Intake Total 240 ml 200 ml Output Total 100 ml 1200 ml Balance 140 ml -1000 ml Exam Cardiovascular: regular rate and rhythm Gastrointestinal: soft Musculoskeletal: nl extremities to inspection Extremities: normal pulses Results Result Diagram: 07/15/16 0910 07/17/16 0700 Results 24 hrs Laboratory Tests Test 07/16/16 21:04 07/17/16 02:41 07/17/16 07:00 07/17/16 07:48 Bedside Glucose 165 168 125 Anion Gap 19 H Blood Urea Nitrogen 38 H Calcium Level 6.9 L Carbon Dioxide Level 20 L Chloride Level 109 Creatinine 2.34 H Glucose Level 135 Potassium Level 4.8 Sodium Level 143 Test 07/17/16 12:06 07/17/16 17:12 Bedside Glucose 199 173 Medications Medications Current Medications Ondansetron HCl (Zofran Inj) 4 mg Q6H PRN IV NAUSEA AND/OR VOMITING Last administered on 07/06/16 11:46; Admin Dose 4 MG; Start 07/03/16 at 12:00 Acetaminophen (Tylenol Tab) 650 mg Q6H PRN PO PAIN LEVEL 1-3 OR FEVER Last administered on 07/13/16 20:43; Admin Dose 650 MG; Start 07/03/16 at 12:00 Acetaminophen (Tylenol Supp) 650 mg Q6H PRN SD PAIN LEVEL 1-3 OR FEVER; Start 07/03/16 at 12:00 Acetaminophen/ Hydrocodone Bitart ([place] (5/325)) 2 tab Q6H PRN PO SEVERE PAIN LEVEL 7-10 Last administered on 07/17/16 02:35; Admin Dose 2 TAB; Start at 12:00 Docusate Sodium (Colace) 100 mg Q12H PRN PO CONSTIPATION Last administered on 12:59; Admin Dose 100 MG; Start 07/03/16 at 12:00 Magnesium Hydroxide (Milk Of Mag) 30 ml DAILY PRN PO CONSTIPATION Last administered on 07/10/16 12:59; Admin Dose 30 ML; Start 07/03/16 at 12:00 Bisacodyl (Dulcolax Supp) 10 mg DAILY PRN SD CONSTIPATION Last administered on 07/11/16 14:30; Admin Dose 10 MG; Start 07/03/16 at 12:00 Aripiprazole (Abilify) 2 mg DAILY PO Last administered on 07/17/16 09:08; Admin Dose 2 MG; Start 07/04/16 at 09:00 Aspirin (Halfprin) 81 mg DAILY PO Last administered on 07/17/16 09:09; Admin Dose 81 MG; Start 07/04/16 at 09:00 Carbidopa/Levodopa (Sinemet (25/ 100)) 1 tab DAILY PO Last administered on 09:09; Admin Dose 1 TAB; Start 07/04/16 at 09:00 Clopidogrel Bisulfate (plaVIX) 75 mg DAILY PO Last administered on 07/17/16 09: 08; Admin Dose 75 MG; Start 07/04/16 at 09:00 Fluticasone Propionate (Flonase 0.05% Nasal) 1 spray BID NASAL Last administered on 07/17/16 09:08; Admin Dose 1 SPRAY; Start 07/03/16 at 21:00 Loratadine (Claritin) 10 mg DAILY PO Last administered on 07/17/16 09:09; Admin Dose 10 MG; Start 07/04/16 at 09:00 Meclizine HCl (Antivert) 25 mg Q12H PRN PO DIZZINESS; Start 07/03/16 at 14:30 Sertraline HCl (Zoloft) 50 mg DAILY PO Last administered on 07/17/16 09:09; Admin Dose 50 MG; Start 07/04/16 at 09:00 Atorvastatin Calcium (Lipitor) 10 mg QHS PO Last administered on 07/16/16 21:11 ; Admin Dose 10 MG; Start 07/03/16 at 21:00 Miscellaneous Information 1 ea NOTE XX ; Start 07/03/16 at 15:00 Glucose (Glutose) 15 gm Q15M PRN PO DECREASED GLUCOSE; Start 07/03/16 at 15:00 Glucose (Glutose) 22.5 gm Q15M PRN PO DECREASED GLUCOSE; Start 07/03/16 at 15: 00 Dextrose (D50w Syringe) 25 ml Q15M PRN IV DECREASED GLUCOSE; Start 07/03/16 at 15:00 Dextrose (D50w Syringe) 50 ml Q15M PRN IV DECREASED GLUCOSE; Start 07/03/16 at 15:00 Glucagon (Glucagen) 1 mg Q15M PRN IM DECREASED GLUCOSE; Start 07/03/16 at 15:00 Glucose (Glutose) 15 gm Q15M PRN BUCCAL DECREASED GLUCOSE; Start 07/03/16 at 15 :00 Citric Acid/ Sodium Citrate (Bicitra) 30 ml BID PO Last administered on 09:08; Admin Dose 30 ML; Start 07/04/16 at 21:00 Heparin Sodium (Porcine) (Heparin (5000 Units/0.5 ml)) 5,000 unit BID SC Last administered on 07/17/16 09:12; Admin Dose 5,000 UNIT; Start 07/05/16 at 21:00 Pantoprazole (Protonix Tab) 40 mg DAILY@06 PO Last administered on 07/17/16 06: 15; Admin Dose 40 MG; Start 07/07/16 at 06:00 Diagnostic Test (Pha) (Accucheck) 1 ea 02 XX Last administered on 07/17/16 02: 56; Admin Dose 1 EA; Start 07/08/16 at 02:00 Alprazolam (Xanax) 0.25 mg BID PO Last administered on 07/17/16 09:08; Admin Dose 0.25 MG; Start 07/07/16 at 11:30 Al Hydrox/Mg Hydrox/Simethicone (Mag-Al Plus) 30 ml Q6H PRN PO GASTROINTESTINAL UPSET Last administered on 07/07/16 11:35; Admin Dose 30 ML; Start 07/07/16 at 11:30 Acetaminophen/ Hydrocodone Bitart ([place] (5/325)) 1 tab Q3H PRN PO PAIN Last administered on 07/17/16 17:24; Admin Dose 1 TAB; Start 07/12/16 at 14:00 Hydromorphone HCl 1 mg 1 mg Q2H PRN IV PAIN Last administered on 07/16/16 14:37 ; Admin Dose 1 MG; Start 07/12/16 at 16:30 Potassium Chloride/Sodium Chloride (NS-KCl 20 Meq) 1,000 ml @ 75 mls/hr [id number] IV Last administered on 07/17/16 17:20; Admin Dose 75 MLS/HR; Start at 15:00 Carvedilol (Coreg) 12.5 mg BID PO Last administered on 07/17/16 09:10; Admin Dose 12.5 MG; Start 07/15/16 at 13:30 PERRY ALVARES MD Jul 17, 2016 17:30
[2016-07-17] MEDS: ATORVASTATIN 10 MG TAB PO SCH (21:43)
[2016-07-18] MEDS: INSULIN ASPART [NOVOLOG] 3 ML PEN SC SCH ×5 (00:10→21:00)
[2016-07-18] MEDS: ACCUCHECK XX SCH (02:00)
[2016-07-18] MEDS: PANTOPRAZOLE (EC) 40 MG TAB PO SCH (05:19)
[2016-07-18] MEDS: HYDROCODONE/APAP (5/325) TAB PO PRN ×4 (05:20→18:59)
--- NOTE | 2016-07-18 07:25 | PN ---
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 (2) Chronic kidney disease, stage 3 (moderate) Status: Chronic Comment: Nephrology is following the patient; patient has stabilized nicely and is without evidence of uremia or metabolic derangement (3) Primary cancer of left breast with metastasis to other site Status: Chronic Comment: As noted. Her oncologist will follow her (4) Hyperlipidemia Status: Chronic Comment: Noted and on treatment Qualifiers: Hyperlipidemia type: pure hypercholesterolemia Qualified Code: E78.00 - Pure hypercholesterolemia (5) Essential hypertension Status: Chronic Comment: Well-controlled (6) Closed right hip fracture Status: Acute Comment: Status post open reduction internal fixation by Dr. Byrd. Stable and ready to go to ECF. Her major tamayo. Is finding an ECF to accept her. Qualifiers: Encounter type: initial encounter Qualified Code: S72.001A - Closed right hip fracture, initial encounter (7) Hyperkalemia Status: Resolved (8) Acidosis Status: Resolved Subjective 24 Hr Interval Summary Free Text/Dictation Elderly Green[place]ic speaking female lying in bed who is able to converse. She is she is not oriented Exam/Review of Systems Vital Signs Vitals Vital Signs Date Time Temp Pulse Resp B/P Pulse Ox O2 Delivery O2 Flow Rate FiO2 07/18/16 00:00 Nasal Cannula 2.0 07/17/16 20:17 99.0 90 18 129/60 95 Intake and Output 07/17/16 07/17/16 07/18/16 15:00 23:00 07:00 Intake Total 840 ml 100 ml Output Total 2100 ml 750 ml Balance -1260 ml -650 ml Exam Constitutional: alert Eyes: EOMI, nl conjunctiva, nl lids Neck: non-tender, supple Cardiovascular: nl pulses, regular rate and rhythm Gastrointestinal: nl liver, spleen, non-tender, soft Results Result Diagram: 07/15/16 0910 07/17/16 0700 Results 24 hrs Laboratory Tests Test 07/17/16 07:48 07/17/16 12:06 07/17/16 17:12 07/17/16 21:41 Bedside Glucose 125 199 173 193 Test 07/18/16 00:09 Bedside Glucose 156 Medications Medications Current Medications Ondansetron HCl (Zofran Inj) 4 mg Q6H PRN IV NAUSEA AND/OR VOMITING Last administered on 07/06/16 11:46; Admin Dose 4 MG; Start 07/03/16 at 12:00 Acetaminophen (Tylenol Tab) 650 mg Q6H PRN PO PAIN LEVEL 1-3 OR FEVER Last administered on 07/13/16 20:43; Admin Dose 650 MG; Start 07/03/16 at 12:00 Acetaminophen (Tylenol Supp) 650 mg Q6H PRN [place] PAIN LEVEL 1-3 OR FEVER; Start 07/03/16 at 12:00 Acetaminophen/ Hydrocodone Bitart ([place] (5/325)) 2 tab Q6H PRN PO SEVERE PAIN LEVEL 7-10 Last administered on 07/17/16 02:35; Admin Dose 2 TAB; Start at 12:00 Docusate Sodium (Colace) 100 mg Q12H PRN PO CONSTIPATION Last administered on 12:59; Admin Dose 100 MG; Start 07/03/16 at 12:00 Magnesium Hydroxide (Milk Of Mag) 30 ml DAILY PRN PO CONSTIPATION Last administered on 07/10/16 12:59; Admin Dose 30 ML; Start 07/03/16 at 12:00 Bisacodyl (Dulcolax Supp) 10 mg DAILY PRN [place] CONSTIPATION Last administered on 07/11/16 14:30; Admin Dose 10 MG; Start 07/03/16 at 12:00 Aripiprazole (Abilify) 2 mg DAILY PO Last administered on 07/17/16 09:08; Admin Dose 2 MG; Start 07/04/16 at 09:00 Aspirin (Halfprin) 81 mg DAILY PO Last administered on 07/17/16 09:09; Admin Dose 81 MG; Start 07/04/16 at 09:00 Carbidopa/Levodopa (Sinemet (25/ 100)) 1 tab DAILY PO Last administered on 09:09; Admin Dose 1 TAB; Start 07/04/16 at 09:00 Clopidogrel Bisulfate (plaVIX) 75 mg DAILY PO Last administered on 07/17/16 09: 08; Admin Dose 75 MG; Start 07/04/16 at 09:00 Fluticasone Propionate (Flonase 0.05% Nasal) 1 spray BID NASAL Last administered on 07/17/16 21:50; Admin Dose 1 SPRAY; Start 07/03/16 at 21:00 Loratadine (Claritin) 10 mg DAILY PO Last administered on 07/17/16 09:09; Admin Dose 10 MG; Start 07/04/16 at 09:00 Meclizine HCl (Antivert) 25 mg Q12H PRN PO DIZZINESS; Start 07/03/16 at 14:30 Sertraline HCl (Zoloft) 50 mg DAILY PO Last administered on 07/17/16 09:09; Admin Dose 50 MG; Start 07/04/16 at 09:00 Atorvastatin Calcium (Lipitor) 10 mg QHS PO Last administered on 07/17/16 21:43 ; Admin Dose 10 MG; Start 07/03/16 at 21:00 Miscellaneous Information 1 ea NOTE XX ; Start 07/03/16 at 15:00 Glucose (Glutose) 15 gm Q15M PRN PO DECREASED GLUCOSE; Start 07/03/16 at 15:00 Glucose (Glutose) 22.5 gm Q15M PRN PO DECREASED GLUCOSE; Start 07/03/16 at 15: 00 Dextrose (D50w Syringe) 25 ml Q15M PRN IV DECREASED GLUCOSE; Start 07/03/16 at 15:00 Dextrose (D50w Syringe) 50 ml Q15M PRN IV DECREASED GLUCOSE; Start 07/03/16 at 15:00 Glucagon (Glucagen) 1 mg Q15M PRN IM DECREASED GLUCOSE; Start 07/03/16 at 15:00 Glucose (Glutose) 15 gm Q15M PRN BUCCAL DECREASED GLUCOSE; Start 07/03/16 at 15 :00 Citric Acid/ Sodium Citrate (Bicitra) 30 ml BID PO Last administered on 21:42; Admin Dose 30 ML; Start 07/04/16 at 21:00 Heparin Sodium (Porcine) (Heparin (5000 Units/0.5 ml)) 5,000 unit BID SC Last administered on 07/17/16 21:49; Admin Dose 5,000 UNIT; Start 07/05/16 at 21:00 Pantoprazole (Protonix Tab) 40 mg DAILY@06 PO Last administered on 07/18/16 05: 19; Admin Dose 40 MG; Start 07/07/16 at 06:00 Diagnostic Test (Pha) (Accucheck) 1 ea 02 XX Last administered on 07/17/16 02: 56; Admin Dose 1 EA; Start 07/08/16 at 02:00 Alprazolam (Xanax) 0.25 mg BID PO Last administered on 07/17/16 21:43; Admin Dose 0.25 MG; Start 07/07/16 at 11:30 Al Hydrox/Mg Hydrox/Simethicone (Mag-Al Plus) 30 ml Q6H PRN PO GASTROINTESTINAL UPSET Last administered on 07/07/16 11:35; Admin Dose 30 ML; Start 07/07/16 at 11:30 Acetaminophen/ Hydrocodone Bitart ([place] (5/325)) 1 tab Q3H PRN PO PAIN Last administered on 07/18/16 05:20; Admin Dose 1 TAB; Start 07/12/16 at 14:00 Hydromorphone HCl 1 mg 1 mg Q2H PRN IV PAIN Last administered on 07/16/16 14:37 ; Admin Dose 1 MG; Start 07/12/16 at 16:30 Potassium Chloride/Sodium Chloride (NS-KCl 20 Meq) 1,000 ml @ 75 mls/hr [id number] IV Last administered on 07/17/16 17:20; Admin Dose 75 MLS/HR; Start at 15:00 Carvedilol (Coreg) 12.5 mg BID PO Last administered on 07/17/16 21:43; Admin Dose 12.5 MG; Start 07/15/16 at 13:30 HELENA ARSHAD MD Jul 18, 2016 07:25
[2016-07-18 07:55] VITALS: BP 143/62; RESP 18
[2016-07-18] MEDS: LORATADINE 10 MG TAB PO SCH (09:08)
[2016-07-18] MEDS: ALPRAZOLAM 0.25 MG TAB PO SCH ×2 (09:09→20:48)
[2016-07-18] MEDS: CLOPIDOGREL 75 MG TAB PO SCH (09:09)
[2016-07-18] MEDS: HEPARIN 5,000 UNIT/0.5 ML SYG SC SCH ×2 (09:09→20:49)
[2016-07-18] MEDS: ASPIRIN (EC) 81 MG TAB PO SCH (09:09)
[2016-07-18] MEDS: SERTRALINE 50 MG TAB PO SCH (09:10)
[2016-07-18] MEDS: CITRIC ACID/NA CITRATE 30 ML CUP PO SCH ×2 (09:10→20:47)
[2016-07-18] MEDS: CARBIDOPA/LEVODOPA (25/100) TAB PO SCH (09:10)
[2016-07-18] MEDS: FLUTICASONE 0.05% 16 GM NAS SPRAY NASAL SCH ×2 (11:18→20:47)
[2016-07-18] MEDS: ARIPIPRAZOLE 2 MG TAB PO SCH (11:18)
[2016-07-18] MEDS: MEGESTROL (40 MG/ML) 10ML CUP PO SCH (11:18)
[2016-07-18] MEDS: NS + KCL 20 MEQ 1,000 ML IV SCH ×2 (11:21→23:51)
--- NOTE | 2016-07-18 17:15 | PN ---
Date/Time of Note Date/Time of Note DATE: 07/18/16 TIME: 17:14 Assessment/Plan VTE Prophylaxis VTE Prophylaxis Intervention: other Lines/Catheters IV Catheter Type (from Nrs): Peripheral IV Urinary Cath still in place: Yes Reason Cath still needed: other (indicate) Assessment/Plan Chief Complaint/Hosp Course IMPRESSION: 1. Patient has uwxbw-ep-ayjkpri kidney disease, acute renal failure due to prerenal azotemia.BETTER 2. Patient has underlying chronic kidney disease, possibly hypertensive nephrosclerosis, and possible diabetic nephropathy. 3. Hyperkalemia, worsened by aldosterone antagonist.NOW SEPTRA OFF 4. Anemia of possibly chronic kidney disease. ang post op anemia 5. Metabolic acidosis. better 6. The patient also is status post fall with right hip fracture. PER ORTHO 7. Coronary artery disease with coronary artery bypass graft. 8. History of hysterectomy. 9. History of breast cancer, surgery on treatment. 10. Underlying chronic tubular interstitial nephritis. 11. proteinuria. 12 UTI 13 S/P RT HIP HEMIARTHROPLASTY 14 influenza a plan ck bmp avoid nephrotoxic drugs BMP Problems: Subjective 24 Hr Interval Summary Cardiovascular: no complaints Gastrointestinal: no complaints Genitourinary: no complaints Exam/Review of Systems Vital Signs Vitals Vital Signs Date Time Temp Pulse Resp B/P Pulse Ox O2 Delivery O2 Flow Rate FiO2 07/18/16 09:30 Nasal Cannula 2.0 07/18/16 07:55 98.2 90 18 143/62 96 Intake and Output 07/17/16 07/17/16 07/18/16 15:00 23:00 07:00 Intake Total 840 ml 100 ml Output Total 2100 ml 750 ml Balance -1260 ml -650 ml Exam Respiratory: clear to auscultation Cardiovascular: regular rate and rhythm Gastrointestinal: soft Musculoskeletal: nl extremities to inspection Extremities: normal pulses Results Result Diagram: 07/15/16 0910 07/17/16 0700 Results 24 hrs Laboratory Tests Test 07/17/16 21:41 07/18/16 00:09 07/18/16 07:48 07/18/16 11:24 Bedside Glucose 193 156 113 115 Test 07/18/16 16:45 Bedside Glucose 125 Medications Medications Current Medications Ondansetron HCl (Zofran Inj) 4 mg Q6H PRN IV NAUSEA AND/OR VOMITING Last administered on 07/06/16t 11:46; Admin Dose 4 MG; Start 07/03/16 at 12:00 Acetaminophen (Tylenol Tab) 650 mg Q6H PRN PO PAIN LEVEL 1-3 OR FEVER Last administered on 07/13/16 20:43; Admin Dose 650 MG; Start 07/03/16 at 12:00 Acetaminophen (Tylenol Supp) 650 mg Q6H PRN IN PAIN LEVEL 1-3 OR FEVER; Start 07/03/16 at 12:00 Acetaminophen/ Hydrocodone Bitart ([place] (5/325)) 2 tab Q6H PRN PO SEVERE PAIN LEVEL 7-10 Last administered on 07/17/16 02:35; Admin Dose 2 TAB; Start at 12:00 Docusate Sodium (Colace) 100 mg Q12H PRN PO CONSTIPATION Last administered on 12:59; Admin Dose 100 MG; Start 07/03/16 at 12:00 Magnesium Hydroxide (Milk Of Mag) 30 ml DAILY PRN PO CONSTIPATION Last administered on 07/10/16 12:59; Admin Dose 30 ML; Start 07/03/16 at 12:00 Bisacodyl (Dulcolax Supp) 10 mg DAILY PRN IN CONSTIPATION Last administered on 07/11/16 14:30; Admin Dose 10 MG; Start 07/03/16 at 12:00 Aripiprazole (Abilify) 2 mg DAILY PO Last administered on 07/18/16 11:18; Admin Dose 2 MG; Start 07/04/16 at 09:00 Aspirin (Halfprin) 81 mg DAILY PO Last administered on 07/18/16 09:09; Admin Dose 81 MG; Start 07/04/16 at 09:00 Carbidopa/Levodopa (Sinemet (25/ 100)) 1 tab DAILY PO Last administered on 09:10; Admin Dose 1 TAB; Start 07/04/16 at 09:00 Clopidogrel Bisulfate (plaVIX) 75 mg DAILY PO Last administered on 07/18/16 09: 09; Admin Dose 75 MG; Start 07/04/16 at 09:00 Fluticasone Propionate (Flonase 0.05% Nasal) 1 spray BID NASAL Last administered on 07/18/16 11:18; Admin Dose 1 SPRAY; Start 07/03/16 at 21:00 Loratadine (Claritin) 10 mg DAILY PO Last administered on 07/18/16 09:08; Admin Dose 10 MG; Start 07/04/16 at 09:00 Meclizine HCl (Antivert) 25 mg Q12H PRN PO DIZZINESS; Start 07/03/16 at 14:30 Sertraline HCl (Zoloft) 50 mg DAILY PO Last administered on 07/18/16 09:10; Admin Dose 50 MG; Start 07/04/16 at 09:00 Atorvastatin Calcium (Lipitor) 10 mg QHS PO Last administered on 07/17/16 21:43 ; Admin Dose 10 MG; Start 07/03/16 at 21:00 Miscellaneous Information 1 ea NOTE XX ; Start 07/03/16 at 15:00 Glucose (Glutose) 15 gm Q15M PRN PO DECREASED GLUCOSE; Start 07/03/16 at 15:00 Glucose (Glutose) 22.5 gm Q15M PRN PO DECREASED GLUCOSE; Start 07/03/16 at 15: 00 Dextrose (D50w Syringe) 25 ml Q15M PRN IV DECREASED GLUCOSE; Start 07/03/16 at 15:00 Dextrose (D50w Syringe) 50 ml Q15M PRN IV DECREASED GLUCOSE; Start 07/03/16 at 15:00 Glucagon (Glucagen) 1 mg Q15M PRN IM DECREASED GLUCOSE; Start 07/03/16 at 15:00 Glucose (Glutose) 15 gm Q15M PRN BUCCAL DECREASED GLUCOSE; Start 07/03/16 at 15 :00 Citric Acid/ Sodium Citrate (Bicitra) 30 ml BID PO Last administered on 09:10; Admin Dose 30 ML; Start 07/04/16 at 21:00 Heparin Sodium (Porcine) (Heparin (5000 Units/0.5 ml)) 5,000 unit BID SC Last administered on 07/18/16 09:09; Admin Dose 5,000 UNIT; Start 07/05/16 at 21:00 Pantoprazole (Protonix Tab) 40 mg DAILY@06 PO Last administered on 07/18/16 05: 19; Admin Dose 40 MG; Start 07/07/16 at 06:00 Diagnostic Test (Pha) (Accucheck) 1 ea 02 XX Last administered on 07/17/16 02: 56; Admin Dose 1 EA; Start 2/22/17 at 02:00 Alprazolam (Xanax) 0.25 mg BID PO Last administered on 07/18/16 09:09; Admin Dose 0.25 MG; Start 07/07/16 at 11:30 Al Hydrox/Mg Hydrox/Simethicone (Mag-Al Plus) 30 ml Q6H PRN PO GASTROINTESTINAL UPSET Last administered on 07/07/16 11:35; Admin Dose 30 ML; Start 07/07/16 at 11:30 Acetaminophen/ Hydrocodone Bitart ([place] (5/325)) 1 tab Q3H PRN PO PAIN Last administered on 07/18/16 16:08; Admin Dose 1 TAB; Start 07/12/16 at 14:00 Hydromorphone HCl 1 mg 1 mg Q2H PRN IV PAIN Last administered on 07/16/16 14:37 ; Admin Dose 1 MG; Start 07/12/16 at 16:30 Potassium Chloride/Sodium Chloride (NS-KCl 20 Meq) 1,000 ml @ 75 mls/hr [id number] IV Last administered on 07/18/16 11:21; Admin Dose 75 MLS/HR; Start at 15:00 Carvedilol (Coreg) 12.5 mg BID PO Last administered on 07/18/16 09:09; Admin Dose 12.5 MG; Start 07/15/16 at 13:30 PERRY ALVARES MD Jul 18, 2016 17:15
[2016-07-18] MEDS: ACETAMINOPHEN 325 MG TAB PO PRN (18:25)
[2016-07-18 20:06] VITALS: BP 148/69; RESP 20
[2016-07-18] MEDS: ATORVASTATIN 10 MG TAB PO SCH (20:48)
[2016-07-19] MEDS: HYDROCODONE/APAP (5/325) TAB PO PRN ×4 (01:01→21:48)
[2016-07-19] MEDS: ACCUCHECK XX SCH (02:00)
[2016-07-19] MEDS: PANTOPRAZOLE (EC) 40 MG TAB PO SCH (05:38)
[2016-07-19] MEDS: INSULIN ASPART [NOVOLOG] 3 ML PEN SC SCH ×4 (07:44→20:49)
[2016-07-19 08:13] VITALS: BP 137/63; RESP 19
[2016-07-19] MEDS: FLUTICASONE 0.05% 16 GM NAS SPRAY NASAL SCH ×2 (08:25→20:36)
[2016-07-19 08:26] LABS: CREATININE 2.12 mg/dl (0.44-1.00)
[2016-07-19] MEDS: CITRIC ACID/NA CITRATE 30 ML CUP PO SCH ×2 (08:26→20:35)
[2016-07-19] MEDS: LORATADINE 10 MG TAB PO SCH (08:26)
[2016-07-19] MEDS: CARBIDOPA/LEVODOPA (25/100) TAB PO SCH (08:26)
[2016-07-19] MEDS: ALPRAZOLAM 0.25 MG TAB PO SCH ×2 (08:26→20:37)
[2016-07-19] MEDS: CLOPIDOGREL 75 MG TAB PO SCH (08:26)
[2016-07-19] MEDS: ARIPIPRAZOLE 2 MG TAB PO SCH (08:26)
[2016-07-19] MEDS: SERTRALINE 50 MG TAB PO SCH (08:26)
[2016-07-19] MEDS: ASPIRIN (EC) 81 MG TAB PO SCH (08:26)
[2016-07-19 08:27] LABS: CALCIUM 7.1 mg/dl (8.4-10.2)
[2016-07-19] MEDS: HEPARIN 5,000 UNIT/0.5 ML SYG SC SCH ×2 (08:33→20:38)
[2016-07-19 08:56] LABS: POTASSIUM 6.4 mmol/L (3.5-5.1)
--- NOTE | 2016-07-19 08:56 | PN ---
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 (2) Essential hypertension Status: Chronic Comment: Controlled (3) Hyperlipidemia Status: Chronic Comment: Stable on treatment Qualifiers: Hyperlipidemia type: pure hypercholesterolemia Qualified Code: E78.00 - Pure hypercholesterolemia (4) Primary cancer of left breast with metastasis to other site Status: Chronic Comment: This is noted. She has not oncologist who will follow her as an outpatient (5) Chronic kidney disease, stage 3 (moderate) Status: Chronic Comment: Stable Subjective 24 Hr Interval Summary Free Text/Dictation Patient resting in bed. Please note non-Citizen Of The [place] speaking and hard of hearing Constitutional: no complaints Exam/Review of Systems Vital Signs Vitals Vital Signs Date Time Temp Pulse Resp B/P Pulse Ox O2 Delivery O2 Flow Rate FiO2 07/19/16 08:13 97.7 81 19 137/63 99 07/18/16 20:00 Nasal Cannula 2.0 Intake and Output 07/18/16 07/18/16 07/19/16 14:59 22:59 06:59 Intake Total 1000 ml 900 ml 1175 ml Output Total 1600 ml 1500 ml Balance 1000 ml -700 ml -325 ml Exam Awakens with annoying stimuli Neck: non-tender, supple Respiratory: clear to auscultation, normal air movement Gastrointestinal: nl liver, spleen, non-tender, soft Results Result Diagram: 07/15/16 0910 07/17/16 0700 Results 24 hrs Laboratory Tests Test 07/18/16 11:24 07/18/16 16:45 07/18/16 20:44 07/19/16 07:41 Bedside Glucose 115 125 118 133 Medications Medications Current Medications Ondansetron HCl (Zofran Inj) 4 mg Q6H PRN IV NAUSEA AND/OR VOMITING Last administered on 07/06/16t 11:46; Admin Dose 4 MG; Start 07/03/16 at 12:00 Acetaminophen (Tylenol Tab) 650 mg Q6H PRN PO PAIN LEVEL 1-3 OR FEVER Last administered on 07/18/16 18:25; Admin Dose 650 MG; Start 07/03/16 at 12:00 Acetaminophen (Tylenol Supp) [address] PAIN LEVEL 1-3 OR FEVER; Start 07/03/16 at 12:00 Acetaminophen/ Hydrocodone Bitart ([place] (5/325)) 2 tab Q6H PRN PO SEVERE PAIN LEVEL 7-10 Last administered on 07/19/16 01:01; Admin Dose 2 TAB; Start at 12:00 Docusate Sodium (Colace) 100 mg Q12H PRN PO CONSTIPATION Last administered on 12:59; Admin Dose 100 MG; Start 07/03/16 at 12:00 Magnesium Hydroxide (Milk Of Mag) 30 ml DAILY PRN PO CONSTIPATION Last administered on 07/10/16 12:59; Admin Dose 30 ML; Start 07/03/16 at 12:00 Bisacodyl (Dulcolax Supp) [address] CONSTIPATION Last administered on 07/11/16 14:30; Admin Dose 10 MG; Start 07/03/16 at 12:00 Aripiprazole (Abilify) 2 mg DAILY PO Last administered on 07/19/16 08:26; Admin Dose 2 MG; Start 07/04/16 at 09:00 Aspirin (Halfprin) 81 mg DAILY PO Last administered on 07/19/16 08:26; Admin Dose 81 MG; Start 07/04/16 at 09:00 Carbidopa/Levodopa (Sinemet (25/ 100)) 1 tab DAILY PO Last administered on 08:26; Admin Dose 1 TAB; Start 07/04/16 at 09:00 Clopidogrel Bisulfate (plaVIX) 75 mg DAILY PO Last administered on 07/19/16 08: 26; Admin Dose 75 MG; Start 07/04/16 at 09:00 Fluticasone Propionate (Flonase 0.05% Nasal) 1 spray BID NASAL Last administered on 07/19/16 08:25; Admin Dose 1 SPRAY; Start 07/03/16 at 21:00 Loratadine (Claritin) 10 mg DAILY PO Last administered on 07/19/16 08:26; Admin Dose 10 MG; Start 07/04/16 at 09:00 Meclizine HCl (Antivert) 25 mg Q12H PRN PO DIZZINESS; Start 07/03/16 at 14:30 Sertraline HCl (Zoloft) 50 mg DAILY PO Last administered on 07/19/16 08:26; Admin Dose 50 MG; Start 07/04/16 at 09:00 Atorvastatin Calcium (Lipitor) 10 mg QHS PO Last administered on 07/18/16 20:48 ; Admin Dose 10 MG; Start 07/03/16 at 21:00 Miscellaneous Information 1 ea NOTE XX ; Start 07/03/16 at 15:00 Glucose (Glutose) 15 gm Q15M PRN PO DECREASED GLUCOSE; Start 07/03/16 at 15:00 Glucose (Glutose) 22.5 gm Q15M PRN PO DECREASED GLUCOSE; Start 07/03/16 at 15: 00 Dextrose (D50w Syringe) 25 ml Q15M PRN IV DECREASED GLUCOSE; Start 07/03/16 at 15:00 Dextrose (D50w Syringe) 50 ml Q15M PRN IV DECREASED GLUCOSE; Start 07/03/16 at 15:00 Glucagon (Glucagen) 1 mg Q15M PRN IM DECREASED GLUCOSE; Start 07/03/16 at 15:00 Glucose (Glutose) 15 gm Q15M PRN BUCCAL DECREASED GLUCOSE; Start 07/03/16 at 15 :00 Citric Acid/ Sodium Citrate (Bicitra) 30 ml BID PO Last administered on 08:26; Admin Dose 30 ML; Start 07/04/16 at 21:00 Heparin Sodium (Porcine) (Heparin (5000 Units/0.5 ml)) 5,000 unit BID SC Last administered on 07/19/16 08:33; Admin Dose 5,000 UNIT; Start 07/05/16 at 21:00 Pantoprazole (Protonix Tab) 40 mg DAILY@06 PO Last administered on 07/19/16 05: 38; Admin Dose 40 MG; Start 07/07/16 at 06:00 Diagnostic Test (Pha) (Accucheck) 1 ea 02 XX Last administered on 07/17/16 02: 56; Admin Dose 1 EA; Start 07/08/16 at 02:00 Alprazolam (Xanax) 0.25 mg BID PO Last administered on 07/19/16 08:26; Admin Dose 0.25 MG; Start 07/07/16 at 11:30 Al Hydrox/Mg Hydrox/Simethicone (Mag-Al Plus) 30 ml Q6H PRN PO GASTROINTESTINAL UPSET Last administered on 07/07/16 11:35; Admin Dose 30 ML; Start 07/07/16 at 11:30 Acetaminophen/ Hydrocodone Bitart ([place] (5/325)) 1 tab Q3H PRN PO PAIN Last administered on 07/18/16 18:59; Admin Dose 1 TAB; Start 07/12/16 at 14:00 Hydromorphone HCl 1 mg 1 mg Q2H PRN IV PAIN Last administered on 07/16/16 14:37 ; Admin Dose 1 MG; Start 07/12/16 at 16:30 Potassium Chloride/Sodium Chloride (NS-KCl 20 Meq) 1,000 ml @ 75 mls/hr [id number] IV Last administered on 07/18/16 23:51; Admin Dose 75 MLS/HR; Start at 15:00 Carvedilol (Coreg) 12.5 mg BID PO Last administered on 07/19/16 08:26; Admin Dose 12.5 MG; Start 07/15/16 at 13:30 HELENA ARSHAD MD Jul 19, 2016 08:56
[2016-07-19] MEDS ORDERED: NA POLYST SULFON 15 GM/60 ML BTL PO ONE (09:30)
[2016-07-19] MEDS: MEGESTROL (40 MG/ML) 10ML CUP PO SCH (11:30)
[2016-07-19] MEDS: DOCUSATE SODIUM 100 MG CAP PO PRN (13:51)
--- NOTE | 2016-07-19 17:11 | CONS ---
Date/Time of Note Date/Time of Note DATE: 07/19/16 TIME: 17:09 Assessment/Plan Assessment/Plan Chief Complaint/Hosp Course IMPRESSION: 1. Patient has [id number] kidney disease, acute renal failure due to prerenal azotemia.BETTER 2. Patient has underlying chronic kidney disease, possibly hypertensive nephrosclerosis, and possible diabetic nephropathy. 3. Hyperkalemia, ON KCL DC 4. Anemia of possibly chronic kidney disease. ang post op anemia 5. Metabolic acidosis. better 6. The patient also is status post fall with right hip fracture. PER ORTHO S/P SURGERY 7. Coronary artery disease with coronary artery bypass graft. 8. History of hysterectomy. 9. History of breast cancer, surgery on treatment. 10. Underlying chronic tubular interstitial nephritis. 11. proteinuria. 12 UTI 13 S/P RT HIP HEMIARTHROPLASTY 14 influenza a plan ck bmp avoid nephrotoxic drugs BMP DC KCL IV FLUID Problems: Consultation Date/Type/Reason Admit Date/Time Jul 03, 2016 at 11:46 Initial Consult Date 07/03/16 Type of Consultation: RENAL Referring Provider: JUNI NUNEZ 24 HR Interval Summary Constitutional: no complaints Exam/Review of Systems Vital Signs Vitals Vital Signs Date Time Temp Pulse Resp B/P Pulse Ox O2 Delivery O2 Flow Rate FiO2 07/19/16 09:30 Nasal Cannula 2.0 07/19/16 08:13 97.7 81 19 137/63 99 Intake and Output 07/18/16 07/18/16 07/19/16 15:00 23:00 07:00 Intake Total 1000 ml 900 ml 1175 ml Output Total 1600 ml 1500 ml Balance 1000 ml -700 ml -325 ml Exam Neck: supple Respiratory: clear to auscultation Cardiovascular: regular rate and rhythm Gastrointestinal: soft Extremities: No edema Results Result Diagram: 07/15/16 0910 07/19/16 0715 Results 24 hrs Laboratory Tests Test 07/18/16 20:44 07/19/16 07:15 07/19/16 07:41 07/19/16 11:29 Bedside Glucose 118 133 118 Anion Gap 18 H Blood Urea Nitrogen 36 H Calcium Level 7.1 L Carbon Dioxide Level 19 L Chloride Level 111 H Creatinine 2.12 H Glucose Level 123 Potassium Level 6.4 *H Sodium Level 142 Test 07/19/16 16:28 Bedside Glucose 133 Medications Medications Current Medications Ondansetron HCl (Zofran Inj) 4 mg Q6H PRN IV NAUSEA AND/OR VOMITING Last administered on 07/06/16 11:46; Admin Dose 4 MG; Start 07/03/16 at 12:00 Acetaminophen (Tylenol Tab) 650 mg Q6H PRN PO PAIN LEVEL 1-3 OR FEVER Last administered on 07/18/16 18:25; Admin Dose 650 MG; Start 07/03/16 at 12:00 Acetaminophen (Tylenol Supp) 650 mg Q6H PRN [place] PAIN LEVEL 1-3 OR FEVER; Start 07/03/16 at 12:00 Acetaminophen/ Hydrocodone Bitart ([place] (5/325)) 2 tab Q6H PRN PO SEVERE PAIN LEVEL 7-10 Last administered on 07/19/16 01:01; Admin Dose 2 TAB; Start at 12:00 Docusate Sodium (Colace) 100 mg Q12H PRN PO CONSTIPATION Last administered on 13:51; Admin Dose 100 MG; Start 07/03/16 at 12:00 Magnesium Hydroxide (Milk Of Mag) 30 ml DAILY PRN PO CONSTIPATION Last administered on 07/10/16 12:59; Admin Dose 30 ML; Start 07/03/16 at 12:00 Bisacodyl (Dulcolax Supp) 10 mg DAILY PRN DC CONSTIPATION Last administered on 07/11/16 14:30; Admin Dose 10 MG; Start 07/03/16 at 12:00 Aripiprazole (Abilify) 2 mg DAILY PO Last administered on 07/19/16 08:26; Admin Dose 2 MG; Start 07/04/16 at 09:00 Aspirin (Halfprin) 81 mg DAILY PO Last administered on 07/19/16 08:26; Admin Dose 81 MG; Start 07/04/16 at 09:00 Carbidopa/Levodopa (Sinemet (25/ )) 1 tab DAILY PO Last administered on 08:26; Admin Dose 1 TAB; Start 07/04/16 at 09:00 Clopidogrel Bisulfate (plaVIX) 75 mg DAILY PO Last administered on 07/19/16 08: 26; Admin Dose 75 MG; Start 07/04/16 at 09:00 Fluticasone Propionate (Flonase 0.05% Nasal) 1 spray BID NASAL Last administered on 07/19/16 08:25; Admin Dose 1 SPRAY; Start 07/03/16 at 21:00 Loratadine (Claritin) 10 mg DAILY PO Last administered on 07/19/16 08:26; Admin Dose 10 MG; Start 07/04/16 at 09:00 Meclizine HCl (Antivert) 25 mg Q12H PRN PO DIZZINESS; Start 07/03/16 at 14:30 Sertraline HCl (Zoloft) 50 mg DAILY PO Last administered on 07/19/16 08:26; Admin Dose 50 MG; Start 07/04/16 at 09:00 Atorvastatin Calcium (Lipitor) 10 mg QHS PO Last administered on 07/18/16 20:48 ; Admin Dose 10 MG; Start 07/03/16 at 21:00 Miscellaneous Information 1 ea NOTE XX ; Start 07/03/16 at 15:00 Glucose (Glutose) 15 gm Q15M PRN PO DECREASED GLUCOSE; Start 07/03/16 at 15:00 Glucose (Glutose) 22.5 gm Q15M PRN PO DECREASED GLUCOSE; Start 07/03/16 at 15: 00 Dextrose (D50w Syringe) 25 ml Q15M PRN IV DECREASED GLUCOSE; Start 07/03/16 at 15:00 Dextrose (D50w Syringe) 50 ml Q15M PRN IV DECREASED GLUCOSE; Start 07/03/16 at 15:00 Glucagon (Glucagen) 1 mg Q15M PRN IM DECREASED GLUCOSE; Start 07/03/16 at 15:00 Glucose (Glutose) 15 gm Q15M PRN BUCCAL DECREASED GLUCOSE; Start 07/03/16 at 15 :00 Citric Acid/ Sodium Citrate (Bicitra) 30 ml BID PO Last administered on 08:26; Admin Dose 30 ML; Start 07/04/16 at 21:00 Heparin Sodium (Porcine) (Heparin (5000 Units/0.5 ml)) 5,000 unit BID SC Last administered on 07/19/16 08:33; Admin Dose 5,000 UNIT; Start 07/05/16 at 21:00 Pantoprazole (Protonix Tab) 40 mg DAILY@06 PO Last administered on 07/19/16 05: 38; Admin Dose 40 MG; Start 07/07/16 at 06:00 Diagnostic Test (Pha) (Accucheck) 1 ea 02 XX Last administered on 07/17/16 02: 56; Admin Dose 1 EA; Start 07/08/16 at 02:00 Alprazolam (Xanax) 0.25 mg BID PO Last administered on 07/19/16 08:26; Admin Dose 0.25 MG; Start 07/07/16 at 11:30 Al Hydrox/Mg Hydrox/Simethicone (Mag-Al Plus) 30 ml Q6H PRN PO GASTROINTESTINAL UPSET Last administered on 07/07/16 11:35; Admin Dose 30 ML; Start 07/07/16 at 11:30 Acetaminophen/ Hydrocodone Bitart ([place] (5/325)) 1 tab Q3H PRN PO PAIN Last administered on 07/19/16 15:30; Admin Dose 1 TAB; Start 07/12/16 at 14:00 Hydromorphone HCl (Dilaudid) 1 mg Q2H PRN IV PAIN Last administered on 14:37; Admin Dose 1 MG; Start 07/12/16 at 16:30 Carvedilol (Coreg) 25 mg BID PO ; Start 07/19/16 at 09:00 PERRY ALVARES MD Jul 19, 2016 17:11
[2016-07-19] MEDS: NA POLYST SULFON 15 GM/60 ML BTL PO SCH ×2 (18:53→20:35)
[2016-07-19 19:50] VITALS: BP 128/62; RESP 20
[2016-07-19] MEDS: ATORVASTATIN 10 MG TAB PO SCH (20:37)
[2016-07-20] MEDS: HYDROCODONE/APAP (5/325) TAB PO PRN ×3 (00:59→18:48)
[2016-07-20] MEDS: ACCUCHECK XX SCH (02:00)
[2016-07-20] MEDS: PANTOPRAZOLE (EC) 40 MG TAB PO SCH (05:28)
[2016-07-20 05:30] LABS: POTASSIUM 4.9 mmol/L (3.5-5.1)
[2016-07-20 05:32] LABS: CREATININE 1.98 mg/dl (0.44-1.00)
[2016-07-20 05:33] LABS: CALCIUM 7.3 mg/dl (8.4-10.2)
[2016-07-20] MEDS: INSULIN ASPART [NOVOLOG] 3 ML PEN SC SCH ×4 (08:00→20:12)
[2016-07-20 08:55] VITALS: BP 138/62; RESP 20
[2016-07-20] MEDS: CITRIC ACID/NA CITRATE 30 ML CUP PO SCH ×2 (09:25→20:14)
[2016-07-20] MEDS: FLUTICASONE 0.05% 16 GM NAS SPRAY NASAL SCH ×2 (09:25→20:14)
[2016-07-20] MEDS: ALPRAZOLAM 0.25 MG TAB PO SCH ×2 (09:26→20:14)
[2016-07-20] MEDS: CLOPIDOGREL 75 MG TAB PO SCH (09:26)
[2016-07-20] MEDS: HEPARIN 5,000 UNIT/0.5 ML SYG SC SCH ×2 (09:26→20:16)
[2016-07-20] MEDS: ASPIRIN (EC) 81 MG TAB PO SCH (09:26)
[2016-07-20] MEDS: ARIPIPRAZOLE 2 MG TAB PO SCH (09:26)
[2016-07-20] MEDS: CARBIDOPA/LEVODOPA (25/100) TAB PO SCH (09:27)
[2016-07-20] MEDS: LORATADINE 10 MG TAB PO SCH (09:27)
[2016-07-20] MEDS: SERTRALINE 50 MG TAB PO SCH (09:27)
[2016-07-20] MEDS: MEGESTROL (40 MG/ML) 10ML CUP PO SCH (12:04)
--- NOTE | 2016-07-20 14:50 | PN ---
Date/Time of Note Date/Time of Note DATE: 07/20/16 TIME: 14:48 Assessment/Plan VTE Prophylaxis VTE Prophylaxis Intervention: heparin Lines/Catheters IV [facility] [place] [facility] Urinary Cath still in place: Yes Reason Cath still needed: other (indicate) Assessment/Plan Chief Complaint/Hosp Course X-ray indicates nondisplaced right subcapital femoral fracture that she had hemiarthroplasty on 07/12/2016. Patient haa anemia after the surgery with H/H 7/ 21.9 on 07/14/2016 and patient had hypotension that coreg/lisinipril were stopped. Patient got two units PRBCS transfusion, H/H improves to 10.4/30.9 on . I will resume coreg, adjust dosage and monitor blood pressure. Patient has chronic kidney disease. Last BUN/Cr are 38/2.34 on 07/17/2016. Metformin is stopped for renal failure. Januvia dosage will be 25 mg daily. Problems: Assessment/Plan 1. Right hip fracture s/p fall at home . s/p hemiarthroplasty of the right hip , follow up with ortho Dr. Byrd 2. Severe anemia, acute on chronic, blood loss, 2 units PRBC 07/14/2016, follow up with PCP 3. 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 Patient does follow-up with her physician Dr. Valenzuela as outpatient for this issue. She is status post radiation therapy reportedly 3 weeks ago. Patient follow-up with outpatient oncologist 4. Renal failure, likely CKD, follow up with PCP 5. History of CAD with previous CABG. stable 6. Essential hypertension. restart coreg 7. History of dyslipidemia. Follow-up on fasting lipid panel. 8. Reported history of diabetes. on Januvia, and ISS 9.. Influenza A positive. treated 10. E.Coli UTI, treated 11. DVT prophylaxis: heparin 12. Awaiting for placement-SNF Subjective 24 Hr Interval Summary Free Text/Dictation not out of bed yet. no pain Exam/Review of Systems Vital Signs Vitals Vital Signs Date Time Temp Pulse Resp B/P Pulse Ox O2 Delivery O2 Flow Rate FiO2 07/20/16 08:55 98.9 101 20 138/62 96 07/19/16 20:00 Nasal Cannula 2.0 Intake and Output 07/19/16 07/19/16 07/20/16 15:00 23:00 07:00 Intake Total 30 ml 540 ml 350 ml Output Total 1000 ml 1500 ml Balance 30 ml -460 ml -1150 ml Exam Constitutional: alert, obese, oriented, well developed Psych: nl mood/affect, no complaints Head: atraumatic, normocephalic Eyes: EOMI, PERRL, nl conjunctiva, nl lids ENMT: nl external ears & nose, nl lips & teeth, nl nasal mucosa & septum Neck: non-tender, supple Respiratory: clear to auscultation, normal air movement, No congested cough, No crackles/rales, No diminished breath sounds, No intercostal retraction, No labored breathing, No other, No respirations, No tactile fremitus, No wheezing Cardiovascular: nl pulses, regular rate and rhythm, No S3, No S4, No bruits, No diastolic murmur, No edema, No gallop, No irregular rhythm, No jugular venous distention (JVD), No murmurs/extra sounds, No other, No rub, No systolic murmur Gastrointestinal: nl liver, spleen, non-tender, soft, No ascites, No bowel sounds, No distended, No firm, No hepatomegaly, No mass , No other, No rebound or guarding, No splenomegaly, No surgical scars, No tender Musculoskeletal: nl extremities to inspection Extremities: normal pulses, No calf tenderness, No clubbing, No cyanosis, No edema, No other, No palpable cord, No pitting pedal edema, No tenderness Neurological: NEON ELECTRICIAN II-XII intact, nl mental status, nl speech, nl strength Skin: nl turgor Lymph: nl lymph nodes Results Result Diagram: 07/20/16 0430 Results 24 hrs Laboratory Tests Test 07/19/16 16:28 07/19/16 17:39 07/19/16 20:48 07/20/16 04:30 Bedside Glucose 133 126 Potassium Level 5.9 H 4.9 Anion Gap 18 H Blood Urea Nitrogen 32 H Calcium Level 7.3 L Carbon Dioxide Level 21 Chloride Level 109 Creatinine 1.98 H Glucose Level 114 Sodium Level 143 Test 07/20/16 08:02 07/20/16 12:03 Bedside Glucose 117 124 Medications Medications Current Medications Ondansetron HCl (Zofran Inj) 4 mg Q6H PRN IV NAUSEA AND/OR VOMITING Last administered on 07/06/16 11:46; Admin Dose 4 MG; Start 07/03/16 at 12:00 Acetaminophen (Tylenol Tab) 650 mg Q6H PRN PO PAIN LEVEL 1-3 OR FEVER Last administered on 07/18/16 18:25; Admin Dose 650 MG; Start 07/03/16 at 12:00 Acetaminophen (Tylenol Supp) 650 mg Q6H PRN [place] PAIN LEVEL 1-3 OR FEVER; Start 07/03/16 at 12:00 Acetaminophen/ Hydrocodone Bitart ([place] (5/325)) 2 tab Q6H PRN PO SEVERE PAIN LEVEL 7-10 Last administered on 07/20/16 07:05; Admin Dose 2 TAB; Start at 12:00 Docusate Sodium (Colace) 100 mg Q12H PRN PO CONSTIPATION Last administered on 13:51; Admin Dose 100 MG; Start 07/03/16 at 12:00 Magnesium Hydroxide (Milk Of Mag) 30 ml DAILY PRN PO CONSTIPATION Last administered on 07/10/16 12:59; Admin Dose 30 ML; Start 07/03/16 at 12:00 Bisacodyl (Dulcolax Supp) 10 mg DAILY PRN [place] CONSTIPATION Last administered on 07/11/16 14:30; Admin Dose 10 MG; Start 07/03/16 at 12:00 Aripiprazole (Abilify) 2 mg DAILY PO Last administered on 07/20/16 09:26; Admin Dose 2 MG; Start 07/04/16 at 09:00 Aspirin (Halfprin) 81 mg DAILY PO Last administered on 07/20/16 09:26; Admin Dose 81 MG; Start 07/04/16 at 09:00 Carbidopa/Levodopa (Sinemet (25/ 100)) 1 tab DAILY PO Last administered on 09:27; Admin Dose 1 TAB; Start 07/04/16 at 09:00 Clopidogrel Bisulfate (plaVIX) 75 mg DAILY PO Last administered on 07/20/16 09: 26; Admin Dose 75 MG; Start 07/04/16 at 09:00 Fluticasone Propionate (Flonase 0.05% Nasal) 1 spray BID NASAL Last administered on 07/20/16 09:25; Admin Dose 1 SPRAY; Start 07/03/16 at 21:00 Loratadine (Claritin) 10 mg DAILY PO Last administered on 07/20/16 09:27; Admin Dose 10 MG; Start 07/04/16 at 09:00 Meclizine HCl (Antivert) 25 mg Q12H PRN PO DIZZINESS; Start 07/03/16 at 14:30 Sertraline HCl (Zoloft) 50 mg DAILY PO Last administered on 07/20/16 09:27; Admin Dose 50 MG; Start 07/04/16 at 09:00 Atorvastatin Calcium (Lipitor) 10 mg QHS PO Last administered on 07/19/16 20:37 ; Admin Dose 10 MG; Start 07/03/16 at 21:00 Miscellaneous Information 1 ea NOTE XX ; Start 07/03/16 at 15:00 Glucose (Glutose) 15 gm Q15M PRN PO DECREASED GLUCOSE; Start 07/03/16 at 15:00 Glucose (Glutose) 22.5 gm Q15M PRN PO DECREASED GLUCOSE; Start 07/03/16 at 15: 00 Dextrose (D50w Syringe) 25 ml Q15M PRN IV DECREASED GLUCOSE; Start 07/03/16 at 15:00 Dextrose (D50w Syringe) 50 ml Q15M PRN IV DECREASED GLUCOSE; Start 07/03/16 at 15:00 Glucagon (Glucagen) 1 mg Q15M PRN IM DECREASED GLUCOSE; Start 07/03/16 at 15:00 Glucose (Glutose) 15 gm Q15M PRN BUCCAL DECREASED GLUCOSE; Start 07/03/16 at 15 :00 Citric Acid/ Sodium Citrate (Bicitra) 30 ml BID PO Last administered on 09:25; Admin Dose 30 ML; Start 07/04/16 at 21:00 Heparin Sodium (Porcine) (Heparin (5000 Units/0.5 ml)) 5,000 unit BID SC Last administered on 07/20/16 09:26; Admin Dose 5,000 UNIT; Start 07/05/16 at 21:00 Pantoprazole (Protonix Tab) 40 mg DAILY@06 PO Last administered on 07/20/16 05: 28; Admin Dose 40 MG; Start 07/07/16 at 06:00 Diagnostic Test (Pha) (Accucheck) 1 ea 02 XX Last administered on 07/17/16 02: 56; Admin Dose 1 EA; Start 07/08/16 at 02:00 Alprazolam (Xanax) 0.25 mg BID PO Last administered on 07/20/16 09:26; Admin Dose 0.25 MG; Start 07/07/16 at 11:30 Al Hydrox/Mg Hydrox/Simethicone (Mag-Al Plus) 30 ml Q6H PRN PO GASTROINTESTINAL UPSET Last administered on 07/07/16 11:35; Admin Dose 30 ML; Start 07/07/16 at 11:30 Acetaminophen/ Hydrocodone Bitart ([place] (5/325)) 1 tab Q3H PRN PO PAIN Last administered on 07/20/16 00:59; Admin Dose 1 TAB; Start 07/12/16 at 14:00 Hydromorphone HCl (Dilaudid) 1 mg Q2H PRN IV PAIN Last administered on 14:37; Admin Dose 1 MG; Start 07/12/16 at 16:30 Carvedilol (Coreg) 25 mg BID PO Last administered on 07/20/16 09:28; Admin Dose 25 MG; Start 07/19/16 at 09:00 FERNANDO ALFARO MD Jul 20, 2016 14:50
[2016-07-20 20:06] VITALS: BP 125/62; RESP 18
[2016-07-20] MEDS: ATORVASTATIN 10 MG TAB PO SCH (20:14)
--- NOTE | 2016-07-20 20:54 | CONS ---
Date/Time of Note Date/Time of Note DATE: 07/20/16 TIME: 20:53 Assessment/Plan Assessment/Plan Chief Complaint/Hosp Course IMPRESSION: 1. Patient has [id number] kidney disease, acute renal failure due to prerenal azotemia.BETTER 2. Patient has underlying chronic kidney disease, possibly hypertensive nephrosclerosis, and possible diabetic nephropathy. 3. Hyperkalemia, ON KCL DC now k better 4. Anemia of possibly chronic kidney disease. ang post op anemia 5. Metabolic acidosis. better 6. The patient also is status post fall with right hip fracture. PER ORTHO S/P SURGERY 7. Coronary artery disease with coronary artery bypass graft. 8. History of hysterectomy. 9. History of breast cancer, surgery on treatment. 10. Underlying chronic tubular interstitial nephritis. 11. proteinuria. 12 UTI 13 S/P RT HIP HEMIARTHROPLASTY 14 influenza a plan ck bmp avoid nephrotoxic drugs BMP DC KCL IV FLUID Problems: Consultation Date/Type/Reason Admit Date/Time Jul 03, 2016 at 11:46 Initial Consult Date 07/03/16 Type of Consultation: RENAL Referring Provider: JUNI NUNEZ 24 HR Interval Summary Constitutional: no complaints Exam/Review of Systems Vital Signs Vitals Vital Signs Date Time Temp Pulse Resp B/P Pulse Ox O2 Delivery O2 Flow Rate FiO2 07/20/16 08:55 98.9 101 20 138/62 96 07/19/16 20:00 Nasal Cannula 2.0 Intake and Output 07/19/16 07/19/16 07/20/16 15:00 23:00 07:00 Intake Total 30 ml 540 ml 350 ml Output Total 1000 ml 1500 ml Balance 30 ml -460 ml -1150 ml Exam Respiratory: clear to auscultation Cardiovascular: regular rate and rhythm Gastrointestinal: soft Results Result Diagram: 07/20/16 0430 Results 24 hrs Laboratory Tests Test 07/20/16 04:30 07/20/16 08:02 07/20/16 12:03 07/20/16 16:40 Anion Gap 18 H Blood Urea Nitrogen 32 H Calcium Level 7.3 L Carbon Dioxide Level 21 Chloride Level 109 Creatinine 1.98 H Glucose Level 114 Potassium Level 4.9 Sodium Level 143 Bedside Glucose 117 124 131 Test 07/20/16 20:08 Bedside Glucose 167 Medications Medications Current Medications Ondansetron HCl (Zofran Inj) 4 mg Q6H PRN IV NAUSEA AND/OR VOMITING Last administered on 07/06/16 11:46; Admin Dose 4 MG; Start 07/03/16 at 12:00 Acetaminophen (Tylenol Tab) 650 mg Q6H PRN PO PAIN LEVEL 1-3 OR FEVER Last administered on 07/18/16 18:25; Admin Dose 650 MG; Start 07/03/16 at 12:00 Acetaminophen (Tylenol Supp) 650 mg Q6H PRN [place] PAIN LEVEL 1-3 OR FEVER; Start 07/03/16 at 12:00 Acetaminophen/ Hydrocodone Bitart ([place] (5/325)) 2 tab Q6H PRN PO SEVERE PAIN LEVEL 7-10 Last administered on 07/20/16 07:05; Admin Dose 2 TAB; Start at 12:00 Docusate Sodium (Colace) 100 mg Q12H PRN PO CONSTIPATION Last administered on 13:51; Admin Dose 100 MG; Start 07/03/16 at 12:00 Magnesium Hydroxide (Milk Of Mag) 30 ml DAILY PRN PO CONSTIPATION Last administered on 07/10/16 12:59; Admin Dose 30 ML; Start 07/03/16 at 12:00 Bisacodyl (Dulcolax Supp) 10 mg DAILY PRN [place] CONSTIPATION Last administered on 07/11/16 14:30; Admin Dose 10 MG; Start 07/03/16 at 12:00 Aripiprazole (Abilify) 2 mg DAILY PO Last administered on 07/20/16 09:26; Admin Dose 2 MG; Start 07/04/16 at 09:00 Aspirin (Halfprin) 81 mg DAILY PO Last administered on 07/20/16 09:26; Admin Dose 81 MG; Start 07/04/16 at 09:00 Carbidopa/Levodopa (Sinemet (25/ )) 1 tab DAILY PO Last administered on 09:27; Admin Dose 1 TAB; Start 07/04/16 at 09:00 Clopidogrel Bisulfate (plaVIX) 75 mg DAILY PO Last administered on 07/20/16 09: 26; Admin Dose 75 MG; Start 07/04/16 at 09:00 Fluticasone Propionate (Flonase 0.05% Nasal) 1 spray BID NASAL Last administered on 07/20/16 20:14; Admin Dose 1 SPRAY; Start 07/03/16 at 21:00 Loratadine (Claritin) 10 mg DAILY PO Last administered on 07/20/16 09:27; Admin Dose 10 MG; Start 07/04/16 at 09:00 Meclizine HCl (Antivert) 25 mg Q12H PRN PO DIZZINESS; Start 07/03/16 at 14:30 Sertraline HCl (Zoloft) 50 mg DAILY PO Last administered on 07/20/16 09:27; Admin Dose 50 MG; Start 07/04/16 at 09:00 Atorvastatin Calcium (Lipitor) 10 mg QHS PO Last administered on 07/20/16 20:14 ; Admin Dose 10 MG; Start 07/03/16 at 21:00 Miscellaneous Information 1 ea NOTE XX ; Start 07/03/16 at 15:00 Glucose (Glutose) 15 gm Q15M PRN PO DECREASED GLUCOSE; Start 07/03/16 at 15:00 Glucose (Glutose) 22.5 gm Q15M PRN PO DECREASED GLUCOSE; Start 07/03/16 at 15: 00 Dextrose (D50w Syringe) 25 ml Q15M PRN IV DECREASED GLUCOSE; Start 07/03/16 at 15:00 Dextrose (D50w Syringe) 50 ml Q15M PRN IV DECREASED GLUCOSE; Start 07/03/16 at 15:00 Glucagon (Glucagen) 1 mg Q15M PRN IM DECREASED GLUCOSE; Start 07/03/16 at 15:00 Glucose (Glutose) 15 gm Q15M PRN BUCCAL DECREASED GLUCOSE; Start 07/03/16 at 15 :00 Citric Acid/ Sodium Citrate (Bicitra) 30 ml BID PO Last administered on 20:14; Admin Dose 30 ML; Start 07/04/16 at 21:00 Heparin Sodium (Porcine) (Heparin (5000 Units/0.5 ml)) 5,000 unit BID SC Last administered on 07/20/16 20:16; Admin Dose 5,000 UNIT; Start 07/05/16 at 21:00 Pantoprazole (Protonix Tab) 40 mg DAILY@06 PO Last administered on 07/20/16 05: 28; Admin Dose 40 MG; Start 07/07/16 at 06:00 Diagnostic Test (Pha) (Accucheck) 1 ea 02 XX Last administered on 07/17/16 02: 56; Admin Dose 1 EA; Start 07/08/16 at 02:00 Alprazolam (Xanax) 0.25 mg BID PO Last administered on 07/20/16 20:14; Admin Dose 0.25 MG; Start 07/07/16 at 11:30 Al Hydrox/Mg Hydrox/Simethicone (Mag-Al Plus) 30 ml Q6H PRN PO GASTROINTESTINAL UPSET Last administered on 07/07/16 11:35; Admin Dose 30 ML; Start 07/07/16 at 11:30 Acetaminophen/ Hydrocodone Bitart ([place] (5/325)) 1 tab Q3H PRN PO PAIN Last administered on 07/20/16 18:48; Admin Dose 1 TAB; Start 07/12/16 at 14:00 Hydromorphone HCl (Dilaudid) 1 mg Q2H PRN IV PAIN Last administered on 14:37; Admin Dose 1 MG; Start 07/12/16 at 16:30 Carvedilol (Coreg) 25 mg BID PO Last administered on 07/20/16 09:28; Admin Dose 25 MG; Start 07/19/16 at 09:00 PERRY ALVARES MD Jul 20, 2016 20:54
[2016-07-21] MEDS: ACCUCHECK XX SCH (01:46)
[2016-07-21] MEDS: PANTOPRAZOLE (EC) 40 MG TAB PO SCH (06:36)
[2016-07-21] MEDS: INSULIN ASPART [NOVOLOG] 3 ML PEN SC SCH ×4 (07:37→20:42)
[2016-07-21 07:54] VITALS: BP 147/88; RESP 20
[2016-07-21] MEDS: CITRIC ACID/NA CITRATE 30 ML CUP PO SCH ×2 (09:02→20:43)
[2016-07-21] MEDS: LORATADINE 10 MG TAB PO SCH (09:03)
[2016-07-21] MEDS: SERTRALINE 50 MG TAB PO SCH (09:03)
[2016-07-21] MEDS: ALPRAZOLAM 0.25 MG TAB PO SCH ×2 (09:03→20:43)
[2016-07-21] MEDS: FLUTICASONE 0.05% 16 GM NAS SPRAY NASAL SCH ×2 (09:03→20:44)
[2016-07-21] MEDS: ASPIRIN (EC) 81 MG TAB PO SCH (09:03)
[2016-07-21] MEDS: ARIPIPRAZOLE 2 MG TAB PO SCH (09:03)
[2016-07-21] MEDS: CARBIDOPA/LEVODOPA (25/100) TAB PO SCH (09:03)
[2016-07-21] MEDS: CLOPIDOGREL 75 MG TAB PO SCH (09:03)
[2016-07-21] MEDS: HEPARIN 5,000 UNIT/0.5 ML SYG SC SCH ×2 (09:05→20:44)
[2016-07-21] MEDS: MEGESTROL (40 MG/ML) 10ML CUP PO SCH (12:13)
--- NOTE | 2016-07-21 14:50 | PN ---
Date/Time of Note Date/Time of Note DATE: 07/21/16 TIME: 14:32 Assessment/Plan VTE Prophylaxis VTE Prophylaxis Intervention: heparin Lines/Catheters IV C[facility]ter Type (from [facility]): [facility] Urinary Cath still in place: Yes Reason Cath still needed: other (indicate) Assessment/Plan Chief Complaint/Hosp Course X-ray indicates nondisplaced right subcapital femoral fracture that she had hemiarthroplasty on 07/12/2016. Patient haa anemia after the surgery with H/H 7/ 21.9 on 07/14/2016 and patient had hypotension that coreg/lisinipril were stopped. Patient got two units PRBCS transfusion, H/H improves to 10.4/30.9 on . I will resume coreg, adjust dosage and monitor blood pressure. Patient has chronic kidney disease. Last BUN/Cr are 38/2.34 on 07/17/2016. Metformin is stopped for renal failure. Januvia dosage will be 25 mg daily. Problems: Assessment/Plan 1. Right hip fracture s/p fall at home . s/p hemiarthroplasty of the right hip , follow up with ortho Dr. Byrd 2. Severe anemia, acute on chronic, blood loss, 2 units PRBC 07/14/2016, follow up with PCP 3. 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 Patient does follow-up with her physician Dr. Valenzuela as outpatient for this issue. She is status post radiation therapy reportedly 3 weeks ago. Patient follow-up with outpatient oncologist 4. Renal failure, likely CKD, follow up with PCP 5. History of CAD with previous CABG. stable 6. Essential hypertension. restart coreg 7. History of dyslipidemia. Follow-up on fasting lipid panel. 8. Reported history of diabetes. on Januvia, and ISS 9.. Influenza A positive. treated 10. E.Coli UTI, treated 11. DVT prophylaxis: heparin 12. Awaiting for SNF placement Subjective 24 Hr Interval Summary Free Text/Dictation no event. stronger Exam/Review of Systems Vital Signs Vitals Vital Signs Date Time Temp Pulse Resp B/P Pulse Ox O2 Delivery O2 Flow Rate FiO2 07/21/16 07:54 98.6 88 20 147/88 97 07/19/16 20:00 Nasal Cannula 2.0 Intake and Output 07/20/16 07/20/16 07/21/16 15:00 23:00 07:00 Intake Total 750 ml 340 ml Output Total 1200 ml 1200 ml Balance -450 ml -860 ml Exam Constitutional: alert, oriented, well developed Psych: nl mood/affect, no complaints Head: atraumatic, normocephalic Eyes: EOMI, nl conjunctiva, nl lids ENMT: nl external ears & nose, nl lips & teeth, nl nasal mucosa & septum Neck: non-tender, supple Respiratory: clear to auscultation, normal air movement, No congested cough, No crackles/rales, No diminished breath sounds, No intercostal retraction, No labored breathing, No other, No respirations, No tactile fremitus, No wheezing Cardiovascular: nl pulses, regular rate and rhythm, No S3, No S4, No bruits, No diastolic murmur, No edema, No gallop, No irregular rhythm, No jugular venous distention (JVD), No murmurs/extra sounds, No other, No rub, No systolic murmur Gastrointestinal: nl liver, spleen, non-tender, soft, No ascites, No bowel sounds, No distended, No firm, No hepatomegaly, No mass , No other, No rebound or guarding, No splenomegaly, No surgical scars, No tender Musculoskeletal: nl extremities to inspection Extremities: normal pulses, No calf tenderness, No clubbing, No cyanosis, No edema, No other, No palpable cord, No pitting pedal edema, No tenderness Neurological: [employer]OR [employer]END[employer] II-XII intact, nl mental status, nl speech, nl strength Skin: nl turgor Lymph: nl lymph nodes Results Result Diagram: 07/20/16 0430 Results 24 hrs Laboratory Tests Test 07/20/16 16:40 07/20/16 20:08 07/21/16 07:31 07/21/16 11:29 Bedside Glucose 131 167 92 99 Medications Medications Current Medications Ondansetron HCl (Zofran Inj) 4 mg Q6H PRN IV NAUSEA AND/OR VOMITING Last administered on 07/06/16 11:46; Admin Dose 4 MG; Start 07/03/16 at 12:00 Acetaminophen (Tylenol Tab) 650 mg Q6H PRN PO PAIN LEVEL 1-3 OR FEVER Last administered on 07/18/16 18:25; Admin Dose 650 MG; Start 07/03/16 at 12:00 Acetaminophen (Tylenol Supp) 650 mg Q6H PRN [place] PAIN LEVEL 1-3 OR FEVER; Start 07/03/16 at 12:00 Acetaminophen/ Hydrocodone Bitart ([place] (5/325)) 2 tab Q6H PRN PO SEVERE PAIN LEVEL 7-10 Last administered on 07/20/16 07:05; Admin Dose 2 TAB; Start at 12:00 Docusate Sodium (Colace) 100 mg Q12H PRN PO CONSTIPATION Last administered on 13:51; Admin Dose 100 MG; Start 07/03/16 at 12:00 Magnesium Hydroxide (Milk Of Mag) 30 ml DAILY PRN PO CONSTIPATION Last administered on 07/10/16 12:59; Admin Dose 30 ML; Start 07/03/16 at 12:00 Bisacodyl (Dulcolax Supp) 10 mg DAILY PRN [place] CONSTIPATION Last administered on 07/11/16 14:30; Admin Dose 10 MG; Start 07/03/16 at 12:00 Aripiprazole (Abilify) 2 mg DAILY PO Last administered on 07/21/16 09:03; Admin Dose 2 MG; Start 07/04/16 at 09:00 Aspirin (Halfprin) 81 mg DAILY PO Last administered on 07/21/16 09:03; Admin Dose 81 MG; Start 07/04/16 at 09:00 Carbidopa/Levodopa (Sinemet (25/ 100)) 1 tab DAILY PO Last administered on 09:03; Admin Dose 1 TAB; Start 07/04/16 at 09:00 Clopidogrel Bisulfate (plaVIX) 75 mg DAILY PO Last administered on 07/21/16 09: 03; Admin Dose 75 MG; Start 07/04/16 at 09:00 Fluticasone Propionate (Flonase 0.05% Nasal) 1 spray BID NASAL Last administered on 07/21/16 09:03; Admin Dose 1 SPRAY; Start 07/03/16 at 21:00 Loratadine (Claritin) 10 mg DAILY PO Last administered on 07/21/16 09:03; Admin Dose 10 MG; Start 07/04/16 at 09:00 Meclizine HCl (Antivert) 25 mg Q12H PRN PO DIZZINESS; Start 07/03/16 at 14:30 Sertraline HCl (Zoloft) 50 mg DAILY PO Last administered on 07/21/16 09:03; Admin Dose 50 MG; Start 07/04/16 at 09:00 Atorvastatin Calcium (Lipitor) 10 mg QHS PO Last administered on 07/20/16 20:14 ; Admin Dose 10 MG; Start 07/03/16 at 21:00 Miscellaneous Information 1 ea NOTE XX ; Start 07/03/16 at 15:00 Glucose (Glutose) 15 gm Q15M PRN PO DECREASED GLUCOSE; Start 07/03/16 at 15:00 Glucose (Glutose) 22.5 gm Q15M PRN PO DECREASED GLUCOSE; Start 07/03/16 at 15: 00 Dextrose (D50w Syringe) 25 ml Q15M PRN IV DECREASED GLUCOSE; Start 07/03/16 at 15:00 Dextrose (D50w Syringe) 50 ml Q15M PRN IV DECREASED GLUCOSE; Start 07/03/16 at 15:00 Glucagon (Glucagen) 1 mg Q15M PRN IM DECREASED GLUCOSE; Start 07/03/16 at 15:00 Glucose (Glutose) 15 gm Q15M PRN BUCCAL DECREASED GLUCOSE; Start 07/03/16 at 15 :00 Citric Acid/ Sodium Citrate (Bicitra) 30 ml BID PO Last administered on 09:02; Admin Dose 30 ML; Start 07/04/16 at 21:00 Heparin Sodium (Porcine) (Heparin (5000 Units/0.5 ml)) 5,000 unit BID SC Last administered on 07/21/16 09:05; Admin Dose 5,000 UNIT; Start 07/05/16 at 21:00 Pantoprazole (Protonix Tab) 40 mg DAILY@06 PO Last administered on 07/21/16 06: 36; Admin Dose 40 MG; Start 07/07/16 at 06:00 Diagnostic Test (Pha) (Accucheck) 1 ea 02 XX Last administered on 07/17/16 02: 56; Admin Dose 1 EA; Start 07/08/16 at 02:00 Alprazolam (Xanax) 0.25 mg BID PO Last administered on 07/21/16 09:03; Admin Dose 0.25 MG; Start 07/07/16 at 11:30 Al Hydrox/Mg Hydrox/Simethicone (Mag-Al Plus) 30 ml Q6H PRN PO GASTROINTESTINAL UPSET Last administered on 07/07/16 11:35; Admin Dose 30 ML; Start 07/07/16 at 11:30 Acetaminophen/ Hydrocodone Bitart ([place] (5/325)) 1 tab Q3H PRN PO PAIN Last administered on 07/20/16 18:48; Admin Dose 1 TAB; Start 07/12/16 at 14:00 Hydromorphone HCl (Dilaudid) 1 mg Q2H PRN IV PAIN Last administered on 14:37; Admin Dose 1 MG; Start 07/12/16 at 16:30 Carvedilol (Coreg) 25 mg BID PO Last administered on 07/21/16 09:03; Admin Dose 25 MG; Start 07/19/16 at 09:00 FERNANDO ALFARO MD Jul 21, 2016 14:42
[2016-07-21 20:03] VITALS: BP 127/61; RESP 18
[2016-07-21] MEDS: ACETAMINOPHEN 325 MG TAB PO PRN (20:43)
[2016-07-21] MEDS: ATORVASTATIN 10 MG TAB PO SCH (20:43)
--- NOTE | 2016-07-21 21:02 | CONS ---
Date/Time of Note Date/Time of Note DATE: 07/21/16 TIME: 21:02 Assessment/Plan Assessment/Plan Chief Complaint/Hosp Course IMPRESSION: 1. Patient has [id number] kidney disease, acute renal failure due to prerenal azotemia.BETTER 2. Patient has underlying chronic kidney disease, possibly hypertensive nephrosclerosis, and possible diabetic nephropathy. 3. Hyperkalemia, ON KCL DC now k better 4. Anemia of possibly chronic kidney disease. ang post op anemia 5. Metabolic acidosis. better 6. The patient also is status post fall with right hip fracture. PER ORTHO S/P SURGERY 7. Coronary artery disease with coronary artery bypass graft. 8. History of hysterectomy. 9. History of breast cancer, surgery on treatment. 10. Underlying chronic tubular interstitial nephritis. 11. proteinuria. 12 UTI 13 S/P RT HIP HEMIARTHROPLASTY 14 influenza a plan ck bmp avoid nephrotoxic drugs BMP Problems: Consultation Date/Type/Reason Admit Date/Time Jul 03, 2016 at 11:46 Initial Consult Date 07/03/16 Type of Consultation: RENAL Referring Provider: JUNI NUNEZ 24 HR Interval Summary Constitutional: no complaints Exam/Review of Systems Vital Signs Vitals Vital Signs Date Time Temp Pulse Resp B/P Pulse Ox O2 Delivery O2 Flow Rate FiO2 07/21/16 20:03 98.6 94 18 127/61 95 07/19/16 20:00 Nasal Cannula 2.0 Intake and Output 07/20/16 07/20/16 07/21/16 15:00 23:00 07:00 Intake Total 750 ml 340 ml Output Total 1200 ml 1200 ml Balance -450 ml -860 ml Exam Neck: supple Respiratory: clear to auscultation Cardiovascular: regular rate and rhythm Gastrointestinal: soft Musculoskeletal: nl extremities to inspection Results Result Diagram: 07/20/16 0430 Results 24 hrs Laboratory Tests Test 07/21/16 07:31 07/21/16 11:29 07/21/16 16:20 07/21/16 20:41 Bedside Glucose 92 99 175 149 Medications Medications Current Medications Ondansetron HCl (Zofran Inj) 4 mg Q6H PRN IV NAUSEA AND/OR VOMITING Last administered on 07/06/16t 11:46; Admin Dose 4 MG; Start 07/03/16 at 12:00 Acetaminophen (Tylenol Tab) 650 mg Q6H PRN PO PAIN LEVEL 1-3 OR FEVER Last administered on 07/18/16 18:25; Admin Dose 650 MG; Start 07/03/16 at 12:00 Acetaminophen (Tylenol Supp) 650 mg Q6H PRN [place] PAIN LEVEL 1-3 OR FEVER; Start 07/03/16 at 12:00 Acetaminophen/ Hydrocodone Bitart ([place] (5/325)) 2 tab Q6H PRN PO SEVERE PAIN LEVEL 7-10 Last administered on 07/20/16 07:05; Admin Dose 2 TAB; Start at 12:00 Docusate Sodium (Colace) 100 mg Q12H PRN PO CONSTIPATION Last administered on 13:51; Admin Dose 100 MG; Start 07/03/16 at 12:00 Magnesium Hydroxide (Milk Of Mag) 30 ml DAILY PRN PO CONSTIPATION Last administered on 07/10/16 12:59; Admin Dose 30 ML; Start 07/03/16 at 12:00 Bisacodyl (Dulcolax Supp) 10 mg DAILY PRN [place] CONSTIPATION Last administered on 07/11/16 14:30; Admin Dose 10 MG; Start 07/03/16 at 12:00 Aripiprazole (Abilify) 2 mg DAILY PO Last administered on 07/21/16 09:03; Admin Dose 2 MG; Start 07/04/16 at 09:00 Aspirin (Halfprin) 81 mg DAILY PO Last administered on 07/21/16 09:03; Admin Dose 81 MG; Start 07/04/16 at 09:00 Carbidopa/Levodopa (Sinemet (25/ 100)) 1 tab DAILY PO Last administered on 09:03; Admin Dose 1 TAB; Start 07/04/16 at 09:00 Clopidogrel Bisulfate (plaVIX) 75 mg DAILY PO Last administered on 07/21/16 09: 03; Admin Dose 75 MG; Start 07/04/16 at 09:00 Fluticasone Propionate (Flonase 0.05% Nasal) 1 spray BID NASAL Last administered on 07/21/16 09:03; Admin Dose 1 SPRAY; Start 07/03/16 at 21:00 Loratadine (Claritin) 10 mg DAILY PO Last administered on 07/21/16 09:03; Admin Dose 10 MG; Start 07/04/16 at 09:00 Meclizine HCl (Antivert) 25 mg Q12H PRN PO DIZZINESS; Start 07/03/16 at 14:30 Sertraline HCl (Zoloft) 50 mg DAILY PO Last administered on 07/21/16 09:03; Admin Dose 50 MG; Start 07/04/16 at 09:00 Atorvastatin Calcium (Lipitor) 10 mg QHS PO Last administered on 07/20/16 20:14 ; Admin Dose 10 MG; Start 07/03/16 at 21:00 Miscellaneous Information 1 ea NOTE XX ; Start 07/03/16 at 15:00 Glucose (Glutose) 15 gm Q15M PRN PO DECREASED GLUCOSE; Start 07/03/16 at 15:00 Glucose (Glutose) 22.5 gm Q15M PRN PO DECREASED GLUCOSE; Start 07/03/16 at 15: 00 Dextrose (D50w Syringe) 25 ml Q15M PRN IV DECREASED GLUCOSE; Start 07/03/16 at 15:00 Dextrose (D50w Syringe) 50 ml Q15M PRN IV DECREASED GLUCOSE; Start 07/03/16 at 15:00 Glucagon (Glucagen) 1 mg Q15M PRN IM DECREASED GLUCOSE; Start 07/03/16 at 15:00 Glucose (Glutose) 15 gm Q15M PRN BUCCAL DECREASED GLUCOSE; Start 07/03/16 at 15 :00 Citric Acid/ Sodium Citrate (Bicitra) 30 ml BID PO Last administered on 09:02; Admin Dose 30 ML; Start 07/04/16 at 21:00 Heparin Sodium (Porcine) (Heparin (5000 Units/0.5 ml)) 5,000 unit BID SC Last administered on 07/21/16 09:05; Admin Dose 5,000 UNIT; Start 07/05/16 at 21:00 Pantoprazole (Protonix Tab) 40 mg DAILY@06 PO Last administered on 07/21/16 06: 36; Admin Dose 40 MG; Start 07/07/16 at 06:00 Diagnostic Test (Pha) (Accucheck) 1 ea 02 XX Last administered on 07/17/16 02: 56; Admin Dose 1 EA; Start 07/08/16 at 02:00 Alprazolam (Xanax) 0.25 mg BID PO Last administered on 07/21/16 09:03; Admin Dose 0.25 MG; Start 07/07/16 at 11:30 Al Hydrox/Mg Hydrox/Simethicone (Mag-Al Plus) 30 ml Q6H PRN PO GASTROINTESTINAL UPSET Last administered on 07/07/16 11:35; Admin Dose 30 ML; Start 07/07/16 at 11:30 Acetaminophen/ Hydrocodone Bitart ([place] (5/325)) 1 tab Q3H PRN PO PAIN Last administered on 07/20/16 18:48; Admin Dose 1 TAB; Start 07/12/16 at 14:00 Hydromorphone HCl (Dilaudid) 1 mg Q2H PRN IV PAIN Last administered on 14:37; Admin Dose 1 MG; Start 07/12/16 at 16:30 Carvedilol (Coreg) 25 mg BID PO Last administered on 07/21/16 09:03; Admin Dose 25 MG; Start 07/19/16 at 09:00 PERRY ALVARES MD Jul 21, 2016 21:02
[2016-07-22] MEDS: ACCUCHECK XX SCH (02:00)
[2016-07-22] MEDS: PANTOPRAZOLE (EC) 40 MG TAB PO SCH (05:41)
[2016-07-22 06:22] LABS: POTASSIUM 4.4 mmol/L (3.5-5.1)
[2016-07-22 06:25] LABS: CALCIUM 7.4 mg/dl (8.4-10.2); CREATININE 1.97 mg/dl (0.44-1.00)
[2016-07-22 07:51] VITALS: BP 149/67; RESP 19
[2016-07-22] MEDS: INSULIN ASPART [NOVOLOG] 3 ML PEN SC SCH ×4 (08:00→21:00)
[2016-07-22] MEDS: CITRIC ACID/NA CITRATE 30 ML CUP PO SCH ×2 (09:37→20:48)
[2016-07-22] MEDS: ARIPIPRAZOLE 2 MG TAB PO SCH (09:37)
[2016-07-22] MEDS: FLUTICASONE 0.05% 16 GM NAS SPRAY NASAL SCH ×2 (09:37→20:47)
[2016-07-22] MEDS: HEPARIN 5,000 UNIT/0.5 ML SYG SC SCH ×2 (09:38→20:53)
[2016-07-22] MEDS: CARBIDOPA/LEVODOPA (25/100) TAB PO SCH (09:38)
[2016-07-22] MEDS: CLOPIDOGREL 75 MG TAB PO SCH (09:38)
[2016-07-22] MEDS: ASPIRIN (EC) 81 MG TAB PO SCH (09:38)
[2016-07-22] MEDS: SERTRALINE 50 MG TAB PO SCH (09:38)
[2016-07-22] MEDS: ALPRAZOLAM 0.25 MG TAB PO SCH ×2 (09:38→20:48)
[2016-07-22] MEDS: LORATADINE 10 MG TAB PO SCH (09:38)
[2016-07-22] MEDS: MEGESTROL (40 MG/ML) 10ML CUP PO SCH (12:11)
--- NOTE | 2016-07-22 15:33 | PN ---
Date/Time of Note Date/Time of Note DATE: 07/22/16 TIME: 15:31 Assessment/Plan VTE Prophylaxis VTE Prophylaxis Intervention: heparin Lines/Catheters IV C[facility] Type (from [facility]): Saline Lock Urinary Cath still in place: Yes Reason Cath still needed: other (indicate) Assessment/Plan Chief Complaint/Hosp Course X-ray indicates nondisplaced right subcapital femoral fracture that she had hemiarthroplasty on 07/12/2016. Patient haa anemia after the surgery with H/H 7/ 21.9 on 07/14/2016 and patient had hypotension that coreg/lisinipril were stopped. Patient got two units PRBCS transfusion, H/H improves to 10.4/30.9 on . I will resume coreg, adjust dosage and monitor blood pressure. Patient has chronic kidney disease. Last BUN/Cr are 38/2.34 on 07/17/2016. Metformin is stopped for renal failure. Januvia dosage will be 25 mg daily. Problems: Assessment/Plan 1. Right hip fracture s/p fall at home . s/p hemiarthroplasty of the right hip , follow up with ortho Dr. Byrd 2. Severe anemia, acute on chronic, blood loss, 2 units PRBC 07/14/2016, follow up with PCP 3. 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 Patient does follow-up with her physician Dr. Valenzuela as outpatient for this issue. She is status post radiation therapy reportedly 3 weeks ago. Patient follow-up with outpatient oncologist 4. Renal failure, likely CKD, follow up with PCP 5. History of CAD with previous CABG. stable 6. Essential hypertension. restart coreg 7. History of dyslipidemia. Follow-up on fasting lipid panel. 8. Reported history of diabetes. on Januvia, and ISS 9.. Influenza A positive. treated 10. E.Coli UTI, treated 11. DVT prophylaxis: heparin 12. Awaiting for placement-SNF, talked with sample case porter Subjective 24 Hr Interval Summary Free Text/Dictation stronger Exam/Review of Systems Vital Signs Vitals Vital Signs Date Time Temp Pulse Resp B/P Pulse Ox O2 Delivery O2 Flow Rate FiO2 07/22/16 07:51 99.0 76 19 149/67 96 07/19/16 20:00 Nasal Cannula 2.0 Intake and Output 07/21/16 07/21/16 07/22/16 15:00 23:00 07:00 Intake Total 1240 ml 240 ml Output Total 700 ml 1000 ml Balance 540 ml -760 ml Exam Constitutional: alert, oriented, well developed Psych: nl mood/affect, no complaints Head: atraumatic, normocephalic Eyes: EOMI, PERRL, nl conjunctiva, nl lids ENMT: nl external ears & nose, nl lips & teeth, nl nasal mucosa & septum Neck: non-tender, supple Respiratory: clear to auscultation, normal air movement, No congested cough, No crackles/rales, No diminished breath sounds, No intercostal retraction, No labored breathing, No other, No respirations, No tactile fremitus, No wheezing Cardiovascular: nl pulses, regular rate and rhythm, No S3, No S4, No bruits, No diastolic murmur, No edema, No gallop, No irregular rhythm, No jugular venous distention (JVD), No murmurs/extra sounds, No other, No rub, No systolic murmur Gastrointestinal: nl liver, spleen, soft, No ascites, No bowel sounds, No distended, No firm, No hepatomegaly, No mass , No non-tender, No other, No rebound or guarding, No splenomegaly, No surgical scars, No tender Musculoskeletal: nl extremities to inspection Extremities: normal pulses, No calf tenderness, No clubbing, No cyanosis, No edema, No other, No palpable cord, No pitting pedal edema, No tenderness Neurological: METAL TURNER II-XII intact, nl mental status, nl speech, nl strength Skin: nl turgor Lymph: nl lymph nodes Results Result Diagram: 07/22/16 0455 Results 24 hrs Laboratory Tests Test 07/21/16 16:20 07/21/16 20:41 07/22/16 04:55 07/22/16 08:01 Bedside Glucose 175 149 103 Anion Gap 16 Blood Urea Nitrogen 32 H Calcium Level 7.4 L Carbon Dioxide Level 22 Chloride Level 108 Creatinine 1.97 H Glucose Level 112 Potassium Level 4.4 Sodium Level 142 Test 07/22/16 08:13 07/22/16 12:10 Lab Scanned Report BLOOD TRANSFUSION Bedside Glucose 149 Medications Medications Current Medications Ondansetron HCl (Zofran Inj) 4 mg Q6H PRN IV NAUSEA AND/OR VOMITING Last administered on 07/06/16t 11:46; Admin Dose 4 MG; Start 07/03/16 at 12:00 Acetaminophen (Tylenol Tab) 650 mg Q6H PRN PO PAIN LEVEL 1-3 OR FEVER Last administered on 07/21/16 20:43; Admin Dose 650 MG; Start 07/03/16 at 12:00 Acetaminophen (Tylenol Supp) 650 mg Q6H PRN [place] PAIN LEVEL 1-3 OR FEVER; Start 07/03/16 at 12:00 Acetaminophen/ Hydrocodone Bitart ([place] (5/325)) 2 tab Q6H PRN PO SEVERE PAIN LEVEL 7-10 Last administered on 07/20/16 07:05; Admin Dose 2 TAB; Start at 12:00 Docusate Sodium (Colace) 100 mg Q12H PRN PO CONSTIPATION Last administered on 13:51; Admin Dose 100 MG; Start 07/03/16 at 12:00 Magnesium Hydroxide (Milk Of Mag) 30 ml DAILY PRN PO CONSTIPATION Last administered on 07/10/16 12:59; Admin Dose 30 ML; Start 07/03/16 at 12:00 Bisacodyl (Dulcolax Supp) 10 mg DAILY PRN [place] CONSTIPATION Last administered on 07/11/16 14:30; Admin Dose 10 MG; Start 07/03/16 at 12:00 Aripiprazole (Abilify) 2 mg DAILY PO Last administered on 07/22/16 09:37; Admin Dose 2 MG; Start 07/04/16 at 09:00 Aspirin (Halfprin) 81 mg DAILY PO Last administered on 07/22/16 09:38; Admin Dose 81 MG; Start 07/04/16 at 09:00 Carbidopa/Levodopa (Sinemet (25/ 100)) 1 tab DAILY PO Last administered on 09:38; Admin Dose 1 TAB; Start 07/04/16 at 09:00 Clopidogrel Bisulfate (plaVIX) 75 mg DAILY PO Last administered on 07/22/16 09: 38; Admin Dose 75 MG; Start 07/04/16 at 09:00 Fluticasone Propionate (Flonase 0.05% Nasal) 1 spray BID NASAL Last administered on 07/22/16 09:37; Admin Dose 1 SPRAY; Start 07/03/16 at 21:00 Loratadine (Claritin) 10 mg DAILY PO Last administered on 07/22/16 09:38; Admin Dose 10 MG; Start 07/04/16 at 09:00 Meclizine HCl (Antivert) 25 mg Q12H PRN PO DIZZINESS; Start 07/03/16 at 14:30 Sertraline HCl (Zoloft) 50 mg DAILY PO Last administered on 07/22/16 09:38; Admin Dose 50 MG; Start 07/04/16 at 09:00 Atorvastatin Calcium (Lipitor) 10 mg QHS PO Last administered on 07/21/16 20:43 ; Admin Dose 10 MG; Start 07/03/16 at 21:00 Miscellaneous Information 1 ea NOTE XX ; Start 07/03/16 at 15:00 Glucose (Glutose) 15 gm Q15M PRN PO DECREASED GLUCOSE; Start 07/03/16 at 15:00 Glucose (Glutose) 22.5 gm Q15M PRN PO DECREASED GLUCOSE; Start 07/03/16 at 15: 00 Dextrose (D50w Syringe) 25 ml Q15M PRN IV DECREASED GLUCOSE; Start 07/03/16 at 15:00 Dextrose (D50w Syringe) 50 ml Q15M PRN IV DECREASED GLUCOSE; Start 07/03/16 at 15:00 Glucagon (Glucagen) 1 mg Q15M PRN IM DECREASED GLUCOSE; Start 07/03/16 at 15:00 Glucose (Glutose) 15 gm Q15M PRN BUCCAL DECREASED GLUCOSE; Start 07/03/16 at 15 :00 Citric Acid/ Sodium Citrate (Bicitra) 30 ml BID PO Last administered on 09:37; Admin Dose 30 ML; Start 07/04/16 at 21:00 Heparin Sodium (Porcine) (Heparin (5000 Units/0.5 ml)) 5,000 unit BID SC Last administered on 07/22/16 09:38; Admin Dose 5,000 UNIT; Start 07/05/16 at 21:00 Pantoprazole (Protonix Tab) 40 mg DAILY@06 PO Last administered on 07/22/16 05: 41; Admin Dose 40 MG; Start 07/07/16 at 06:00 Diagnostic Test (Pha) (Accucheck) 1 ea 02 XX Last administered on 07/17/16 02: 56; Admin Dose 1 EA; Start 07/08/16 at 02:00 Alprazolam (Xanax) 0.25 mg BID PO Last administered on 07/22/16 09:38; Admin Dose 0.25 MG; Start 07/07/16 at 11:30 Al Hydrox/Mg Hydrox/Simethicone (Mag-Al Plus) 30 ml Q6H PRN PO GASTROINTESTINAL UPSET Last administered on 07/07/16 11:35; Admin Dose 30 ML; Start 07/07/16 at 11:30 Acetaminophen/ Hydrocodone Bitart ([place] (5/325)) 1 tab Q3H PRN PO PAIN Last administered on 07/20/16 18:48; Admin Dose 1 TAB; Start 07/12/16 at 14:00 Hydromorphone HCl (Dilaudid) 1 mg Q2H PRN IV PAIN Last administered on 14:37; Admin Dose 1 MG; Start 07/12/16 at 16:30 Carvedilol (Coreg) 25 mg BID PO Last administered on 07/22/16 09:38; Admin Dose 25 MG; Start 07/19/16 at 09:00 FERNANDO ALFARO MD Jul 22, 2016 15:32
--- NOTE | 2016-07-22 19:34 | CONS ---
Date/Time of Note Date/Time of Note DATE: 07/22/16 TIME: 19:34 Assessment/Plan Assessment/Plan Chief Complaint/Hosp Course IMPRESSION: 1. Patient has tdihy-lo-[id number] kidney disease, acute renal failure due to prerenal azotemia.BETTER 2. Patient has underlying chronic kidney disease, possibly hypertensive nephrosclerosis, and possible diabetic nephropathy. 3. Hyperkalemia, ON KCL DC now k better 4. Anemia of possibly chronic kidney disease. ang post op anemia 5. Metabolic acidosis. better 6. The patient also is status post fall with right hip fracture. PER ORTHO S/P SURGERY 7. Coronary artery disease with coronary artery bypass graft. 8. History of hysterectomy. 9. History of breast cancer, surgery on treatment. 10. Underlying chronic tubular interstitial nephritis. 11. proteinuria. 12 UTI 13 S/P RT HIP HEMIARTHROPLASTY 14 influenza a plan ck bmp avoid nephrotoxic drugs BMP Problems: Consultation Date/Type/Reason Admit Date/Time Jul 03, 2016 at 11:46 Initial Consult Date 07/03/16 Type of Consultation: RENAL Referring Provider: JUNI NUNEZ 24 HR Interval Summary Constitutional: no complaints Exam/Review of Systems Vital Signs Vitals Vital Signs Date Time Temp Pulse Resp B/P Pulse Ox O2 Delivery O2 Flow Rate FiO2 07/22/16 07:51 99.0 76 19 149/67 96 07/19/16 20:00 Nasal Cannula 2.0 Intake and Output 07/21/16 07/21/16 07/22/16 15:00 23:00 07:00 Intake Total 1240 ml 240 ml Output Total 700 ml 1000 ml Balance 540 ml -760 ml Exam Respiratory: diminished breath sounds Cardiovascular: regular rate and rhythm Gastrointestinal: soft Results Result Diagram: 07/22/16 0455 Results 24 hrs Laboratory Tests Test 07/21/16 20:41 07/22/16 04:55 07/22/16 08:01 07/22/16 08:13 Bedside Glucose 149 103 Anion Gap 16 Blood Urea Nitrogen 32 H Calcium Level 7.4 L Carbon Dioxide Level 22 Chloride Level 108 Creatinine 1.97 H Glucose Level 112 Potassium Level 4.4 Sodium Level 142 Lab Scanned Report BLOOD TRANSFUSION Test 07/22/16 12:10 07/22/16 17:15 Bedside Glucose 149 119 Medications Medications Current Medications Ondansetron HCl (Zofran Inj) 4 mg Q6H PRN IV NAUSEA AND/OR VOMITING Last administered on 07/06/16 11:46; Admin Dose 4 MG; Start 07/03/16 at 12:00 Acetaminophen (Tylenol Tab) 650 mg Q6H PRN PO PAIN LEVEL 1-3 OR FEVER Last administered on 07/21/16 20:43; Admin Dose 650 MG; Start 07/03/16 at 12:00 Acetaminophen (Tylenol Supp) 650 mg Q6H PRN [place] PAIN LEVEL 1-3 OR FEVER; Start 07/03/16 at 12:00 Acetaminophen/ Hydrocodone Bitart ([place] (5/325)) 2 tab Q6H PRN PO SEVERE PAIN LEVEL 7-10 Last administered on 07/20/16 07:05; Admin Dose 2 TAB; Start at 12:00 Docusate Sodium (Colace) 100 mg Q12H PRN PO CONSTIPATION Last administered on 13:51; Admin Dose 100 MG; Start 07/03/16 at 12:00 Magnesium Hydroxide (Milk Of Mag) 30 ml DAILY PRN PO CONSTIPATION Last administered on 07/10/16 12:59; Admin Dose 30 ML; Start 07/03/16 at 12:00 Bisacodyl (Dulcolax Supp) 10 mg DAILY PRN [place] CONSTIPATION Last administered on 07/11/16 14:30; Admin Dose 10 MG; Start 07/03/16 at 12:00 Aripiprazole (Abilify) 2 mg DAILY PO Last administered on 07/22/16 09:37; Admin Dose 2 MG; Start 07/04/16 at 09:00 Aspirin (Halfprin) 81 mg DAILY PO Last administered on 07/22/16 09:38; Admin Dose 81 MG; Start 07/04/16 at 09:00 Carbidopa/Levodopa (Sinemet (25/ 100)) 1 tab DAILY PO Last administered on 09:38; Admin Dose 1 TAB; Start 07/04/16 at 09:00 Clopidogrel Bisulfate (plaVIX) 75 mg DAILY PO Last administered on 07/22/16 09: 38; Admin Dose 75 MG; Start 07/04/16 at 09:00 Fluticasone Propionate (Flonase 0.05% Nasal) 1 spray BID NASAL Last administered on 07/22/16 09:37; Admin Dose 1 SPRAY; Start 07/03/16 at 21:00 Loratadine (Claritin) 10 mg DAILY PO Last administered on 07/22/16 09:38; Admin Dose 10 MG; Start 07/04/16 at 09:00 Meclizine HCl (Antivert) 25 mg Q12H PRN PO DIZZINESS; Start 07/03/16 at 14:30 Sertraline HCl (Zoloft) 50 mg DAILY PO Last administered on 07/22/16 09:38; Admin Dose 50 MG; Start 07/04/16 at 09:00 Atorvastatin Calcium (Lipitor) 10 mg QHS PO Last administered on 07/21/16 20:43 ; Admin Dose 10 MG; Start 07/03/16 at 21:00 Miscellaneous Information 1 ea NOTE XX ; Start 07/03/16 at 15:00 Glucose (Glutose) 15 gm Q15M PRN PO DECREASED GLUCOSE; Start 07/03/16 at 15:00 Glucose (Glutose) 22.5 gm Q15M PRN PO DECREASED GLUCOSE; Start 07/03/16 at 15: 00 Dextrose (D50w Syringe) 25 ml Q15M PRN IV DECREASED GLUCOSE; Start 07/03/16 at 15:00 Dextrose (D50w Syringe) 50 ml Q15M PRN IV DECREASED GLUCOSE; Start 07/03/16 at 15:00 Glucagon (Glucagen) 1 mg Q15M PRN IM DECREASED GLUCOSE; Start 07/03/16 at 15:00 Glucose (Glutose) 15 gm Q15M PRN BUCCAL DECREASED GLUCOSE; Start 07/03/16 at 15 :00 Citric Acid/ Sodium Citrate (Bicitra) 30 ml BID PO Last administered on 09:37; Admin Dose 30 ML; Start 07/04/16 at 21:00 Heparin Sodium (Porcine) (Heparin (5000 Units/0.5 ml)) 5,000 unit BID SC Last administered on 07/22/16 09:38; Admin Dose 5,000 UNIT; Start 07/05/16 at 21:00 Pantoprazole (Protonix Tab) 40 mg DAILY@06 PO Last administered on 07/22/16 05: 41; Admin Dose 40 MG; Start 07/07/16 at 06:00 Diagnostic Test (Pha) (Accucheck) 1 ea 02 XX Last administered on 07/17/16 02: 56; Admin Dose 1 EA; Start 07/08/16 at 02:00 Alprazolam (Xanax) 0.25 mg BID PO Last administered on 07/22/16 09:38; Admin Dose 0.25 MG; Start 07/07/16 at 11:30 Al Hydrox/Mg Hydrox/Simethicone (Mag-Al Plus) 30 ml Q6H PRN PO GASTROINTESTINAL UPSET Last administered on 07/07/16 11:35; Admin Dose 30 ML; Start 07/07/16 at 11:30 Acetaminophen/ Hydrocodone Bitart ([place] (5/325)) 1 tab Q3H PRN PO PAIN Last administered on 07/20/16 18:48; Admin Dose 1 TAB; Start 07/12/16 at 14:00 Hydromorphone HCl (Dilaudid) 1 mg Q2H PRN IV PAIN Last administered on 14:37; Admin Dose 1 MG; Start 07/12/16 at 16:30 Carvedilol (Coreg) 25 mg BID PO Last administered on 07/22/16 09:38; Admin Dose 25 MG; Start 07/19/16 at 09:00 PERRY ALVARES MD Jul 22, 2016 19:34
[2016-07-22 19:59] VITALS: BP 120/58; RESP 22
[2016-07-22] MEDS: ATORVASTATIN 10 MG TAB PO SCH (20:48)
[2016-07-22] MEDS ORDERED: VITAMIN A & D 5 GM OINT PACKET TOP ONE (21:08)
[2016-07-23] MEDS: ACCUCHECK XX SCH (02:00)
[2016-07-23] MEDS: ACETAMINOPHEN 325 MG TAB PO PRN (06:28)
[2016-07-23] MEDS: PANTOPRAZOLE (EC) 40 MG TAB PO SCH (06:28)
[2016-07-23] MEDS: INSULIN ASPART [NOVOLOG] 3 ML PEN SC SCH ×4 (07:56→20:02)
[2016-07-23 08:00] VITALS: BP 132/64; RESP 18
[2016-07-23] MEDS: ARIPIPRAZOLE 2 MG TAB PO SCH (08:24)
[2016-07-23] MEDS: FLUTICASONE 0.05% 16 GM NAS SPRAY NASAL SCH ×2 (08:24→20:01)
[2016-07-23] MEDS: ASPIRIN (EC) 81 MG TAB PO SCH (08:24)
[2016-07-23] MEDS: LORATADINE 10 MG TAB PO SCH (08:24)
[2016-07-23] MEDS: CARBIDOPA/LEVODOPA (25/100) TAB PO SCH (08:24)
[2016-07-23] MEDS: CLOPIDOGREL 75 MG TAB PO SCH (08:24)
[2016-07-23] MEDS: ALPRAZOLAM 0.25 MG TAB PO SCH ×2 (08:25→20:01)
[2016-07-23] MEDS: CITRIC ACID/NA CITRATE 30 ML CUP PO SCH ×2 (08:25→20:01)
[2016-07-23] MEDS: SERTRALINE 50 MG TAB PO SCH (08:25)
[2016-07-23] MEDS: HEPARIN 5,000 UNIT/0.5 ML SYG SC SCH ×2 (08:28→20:04)
[2016-07-23] MEDS: HYDROCODONE/APAP (5/325) TAB PO PRN ×2 (10:53→18:10)
[2016-07-23] MEDS: MEGESTROL (40 MG/ML) 10ML CUP PO SCH (10:53)
--- NOTE | 2016-07-23 16:26 | PN ---
Date/Time of Note Date/Time of Note DATE: 07/23/16 TIME: 16:23 Assessment/Plan VTE Prophylaxis VTE Prophylaxis Intervention: heparin Lines/Catheters IV [facility] Saline Lock Urinary Cath still in place: Yes Reason Cath still needed: other (indicate) Assessment/Plan Chief Complaint/Hosp Course X-ray indicates nondisplaced right subcapital femoral fracture that she had hemiarthroplasty on 07/12/2016. Patient haa anemia after the surgery with H/H 7/ 21.9 on 07/14/2016 and patient had hypotension that coreg/lisinipril were stopped. Patient got two units PRBCS transfusion, H/H improves to 10.4/30.9 on . I will resume coreg, adjust dosage and monitor blood pressure. Patient has chronic kidney disease. Last BUN/Cr are 38/2.34 on 07/17/2016. Metformin is stopped for renal failure. Januvia dosage will be 25 mg daily. Problems: Assessment/Plan 1. Right hip fracture s/p fall at home . s/p hemiarthroplasty of the right hip , follow up with ortho Dr. Byrd 2. Severe anemia, acute on chronic, blood loss, 2 units PRBC 07/14/2016, follow up with PCP 3. 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 Patient does follow-up with her physician Dr. Valenzuela as outpatient for this issue. She is status post radiation therapy reportedly 3 weeks ago. Patient follow-up with outpatient oncologist 4. Renal failure, likely CKD, follow up with PCP 5. History of CAD with previous CABG. stable 6. Essential hypertension. restart coreg 7. History of dyslipidemia. Follow-up on fasting lipid panel. 8. Reported history of diabetes. on Januvia, and ISS 9.. Influenza A positive. treated 10. E.Coli UTI, treated 11. DVT prophylaxis: heparin 12. Awaiting for placement-SNF, talked with housing case manager Subjective 24 Hr Interval Summary Free Text/Dictation stronger, sat on the chair but unable to walk Exam/Review of Systems Vital Signs Vitals Vital Signs Date Time Temp Pulse Resp B/P Pulse Ox O2 Delivery O2 Flow Rate FiO2 07/23/16 08:00 98.6 72 18 132/64 94 07/19/16 20:00 Nasal Cannula 2.0 Intake and Output 07/22/16 07/22/16 07/23/16 15:00 23:00 07:00 Intake Total 840 ml 320 ml Output Total 1540 ml 1300 ml Balance -700 ml -980 ml Exam Constitutional: alert, oriented, well developed Psych: nl mood/affect, no complaints Head: atraumatic, normocephalic Eyes: EOMI, PERRL, nl conjunctiva, nl lids ENMT: nl external ears & nose, nl lips & teeth, nl nasal mucosa & septum Neck: non-tender, supple Respiratory: clear to auscultation, normal air movement, No congested cough, No crackles/rales, No diminished breath sounds, No intercostal retraction, No labored breathing, No other, No respirations, No tactile fremitus, No wheezing Cardiovascular: nl pulses, regular rate and rhythm, No S3, No S4, No bruits, No diastolic murmur, No edema, No gallop, No irregular rhythm, No jugular venous distention (JVD), No murmurs/extra sounds, No other, No rub, No systolic murmur Gastrointestinal: nl liver, spleen, soft, No ascites, No bowel sounds, No distended, No firm, No hepatomegaly, No mass , No non-tender, No other, No rebound or guarding, No splenomegaly, No surgical scars, No tender Musculoskeletal: nl extremities to inspection Extremities: normal pulses, No calf tenderness, No clubbing, No cyanosis, No edema, No other, No palpable cord, No pitting pedal edema, No tenderness Neurological: HAND FRAME SURGICAL ELASTIC KNITTER II-XII intact, nl mental status, nl speech, nl strength Skin: nl turgor Lymph: nl lymph nodes Results Result Diagram: 07/22/16 0455 Results 24 hrs Laboratory Tests Test 07/22/16 17:15 07/22/16 20:55 07/23/16 07:37 07/23/16 11:08 Bedside Glucose 119 132 121 133 Medications Medications Current Medications Ondansetron HCl (Zofran Inj) 4 mg Q6H PRN IV NAUSEA AND/OR VOMITING Last administered on 07/06/16 11:46; Admin Dose 4 MG; Start 07/03/16 at 12:00 Acetaminophen (Tylenol Tab) 650 mg Q6H PRN PO PAIN LEVEL 1-3 OR FEVER Last administered on 07/23/16 06:28; Admin Dose 650 MG; Start 07/03/16 at 12:00 Acetaminophen (Tylenol Supp) 650 mg Q6H PRN [place] PAIN LEVEL 1-3 OR FEVER; Start 07/03/16 at 12:00 Acetaminophen/ Hydrocodone Bitart ([place] (5/325)) 2 tab Q6H PRN PO SEVERE PAIN LEVEL 7-10 Last administered on 07/20/16 07:05; Admin Dose 2 TAB; Start at 12:00 Docusate Sodium (Colace) 100 mg Q12H PRN PO CONSTIPATION Last administered on 13:51; Admin Dose 100 MG; Start 07/03/16 at 12:00 Magnesium Hydroxide (Milk Of Mag) 30 ml DAILY PRN PO CONSTIPATION Last administered on 07/10/16 12:59; Admin Dose 30 ML; Start 07/03/16 at 12:00 Bisacodyl (Dulcolax Supp) 10 mg DAILY PRN [place] CONSTIPATION Last administered on 07/11/16 14:30; Admin Dose 10 MG; Start 07/03/16 at 12:00 Aripiprazole (Abilify) 2 mg DAILY PO Last administered on 07/23/16 08:24; Admin Dose 2 MG; Start 07/04/16 at 09:00 Aspirin (Halfprin) 81 mg DAILY PO Last administered on 07/23/16 08:24; Admin Dose 81 MG; Start 07/04/16 at 09:00 Carbidopa/Levodopa (Sinemet (25/ 100)) 1 tab DAILY PO Last administered on 08:24; Admin Dose 1 TAB; Start 07/04/16 at 09:00 Clopidogrel Bisulfate (plaVIX) 75 mg DAILY PO Last administered on 07/23/16 08: 24; Admin Dose 75 MG; Start 07/04/16 at 09:00 Fluticasone Propionate (Flonase 0.05% Nasal) 1 spray BID NASAL Last administered on 07/23/16 08:24; Admin Dose 1 SPRAY; Start 07/03/16 at 21:00 Loratadine (Claritin) 10 mg DAILY PO Last administered on 07/23/16 08:24; Admin Dose 10 MG; Start 07/04/16 at 09:00 Meclizine HCl (Antivert) 25 mg Q12H PRN PO DIZZINESS; Start 07/03/16 at 14:30 Sertraline HCl (Zoloft) 50 mg DAILY PO Last administered on 07/23/16 08:25; Admin Dose 50 MG; Start 07/04/16 at 09:00 Atorvastatin Calcium (Lipitor) 10 mg QHS PO Last administered on 07/22/16 20:48 ; Admin Dose 10 MG; Start 07/03/16 at 21:00 Miscellaneous Information 1 ea NOTE XX ; Start 07/03/16 at 15:00 Glucose (Glutose) 15 gm Q15M PRN PO DECREASED GLUCOSE; Start 07/03/16 at 15:00 Glucose (Glutose) 22.5 gm Q15M PRN PO DECREASED GLUCOSE; Start 07/03/16 at 15: 00 Dextrose (D50w Syringe) 25 ml Q15M PRN IV DECREASED GLUCOSE; Start 07/03/16 at 15:00 Dextrose (D50w Syringe) 50 ml Q15M PRN IV DECREASED GLUCOSE; Start 07/03/16 at 15:00 Glucagon (Glucagen) 1 mg Q15M PRN IM DECREASED GLUCOSE; Start 07/03/16 at 15:00 Glucose (Glutose) 15 gm Q15M PRN BUCCAL DECREASED GLUCOSE; Start 07/03/16 at 15 :00 Citric Acid/ Sodium Citrate (Bicitra) 30 ml BID PO Last administered on 08:25; Admin Dose 30 ML; Start 07/04/16 at 21:00 Heparin Sodium (Porcine) (Heparin (5000 Units/0.5 ml)) 5,000 unit BID SC Last administered on 07/23/16 08:28; Admin Dose 5,000 UNIT; Start 07/05/16 at 21:00 Pantoprazole (Protonix Tab) 40 mg DAILY@06 PO Last administered on 07/23/16 06: 28; Admin Dose 40 MG; Start 07/07/16 at 06:00 Diagnostic Test (Pha) (Accucheck) 1 ea 02 XX Last administered on 07/17/16 02: 56; Admin Dose 1 EA; Start 07/08/16 at 02:00 Alprazolam (Xanax) 0.25 mg BID PO Last administered on 07/23/16 08:25; Admin Dose 0.25 MG; Start 07/07/16 at 11:30 Al Hydrox/Mg Hydrox/Simethicone (Mag-Al Plus) 30 ml Q6H PRN PO GASTROINTESTINAL UPSET Last administered on 07/07/16 11:35; Admin Dose 30 ML; Start 07/07/16 at 11:30 Acetaminophen/ Hydrocodone Bitart ([place] (5/325)) 1 tab Q3H PRN PO PAIN Last administered on 07/23/16 10:53; Admin Dose 1 TAB; Start 07/12/16 at 14:00 Hydromorphone HCl (Dilaudid) 1 mg Q2H PRN IV PAIN Last administered on 14:37; Admin Dose 1 MG; Start 07/12/16 at 16:30 Carvedilol (Coreg) 25 mg BID PO Last administered on 07/23/16 08:25; Admin Dose 25 MG; Start 07/19/16 at 09:00 FERNANDO ALFARO MD Jul 23, 2016 16:26
[2016-07-23 19:36] VITALS: BP 110/49; RESP 20
[2016-07-23] MEDS: ATORVASTATIN 10 MG TAB PO SCH (20:01)
--- NOTE | 2016-07-23 20:49 | CONS ---
Date/Time of Note Date/Time of Note DATE: 07/23/16 TIME: 20:48 Assessment/Plan Assessment/Plan Chief Complaint/Hosp Course IMPRESSION: 1. Patient has [id number] kidney disease, acute renal failure due to prerenal azotemia.BETTER 2. 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 Hyperkalemia better 4. Anemia of possibly chronic kidney disease. ang post op anemia 5. Metabolic acidosis. better 6. The patient also is status post fall with right hip fracture. PER ORTHO S/P SURGERY 7. Coronary artery disease with coronary artery bypass graft. 8. History of hysterectomy. 9. History of breast cancer, surgery on treatment. 10. Underlying chronic tubular interstitial nephritis. 11. proteinuria. 12 UTI 13 S/P RT HIP HEMIARTHROPLASTY 14 influenza a plan ck bmp avoid nephrotoxic drugs BMP renal stable Problems: Consultation Date/Type/Reason Admit Date/Time Jul 03, 2016 at 11:46 Initial Consult Date 07/03/16 Type of Consultation: RENAL Referring Provider: JUNI NUNEZ 24 HR Interval Summary Constitutional: no complaints Exam/Review of Systems Vital Signs Vitals Vital Signs Date Time Temp Pulse Resp B/P Pulse Ox O2 Delivery O2 Flow Rate FiO2 07/23/16 08:00 98.6 72 18 132/64 94 07/19/16 20:00 Nasal Cannula 2.0 Intake and Output 07/22/16 07/22/16 07/23/16 15:00 23:00 07:00 Intake Total 840 ml 320 ml Output Total 1540 ml 1300 ml Balance -700 ml -980 ml Exam Respiratory: clear to auscultation Cardiovascular: regular rate and rhythm Gastrointestinal: bowel sounds (+) Results Result Diagram: 07/22/16 0455 Results 24 hrs Laboratory Tests Test 07/22/16 20:55 07/23/16 07:37 07/23/16 11:08 07/23/16 16:18 Bedside Glucose 132 121 133 177 Test 07/23/16 20:00 Bedside Glucose 149 Medications Medications Current Medications Ondansetron HCl (Zofran Inj) 4 mg Q6H PRN IV NAUSEA AND/OR VOMITING Last administered on 07/06/16t 11:46; Admin Dose 4 MG; Start 07/03/16 at 12:00 Acetaminophen (Tylenol Tab) 650 mg Q6H PRN PO PAIN LEVEL 1-3 OR FEVER Last administered on 07/23/16 06:28; Admin Dose 650 MG; Start 07/03/16 at 12:00 Acetaminophen (Tylenol Supp) 650 mg Q6H PRN [place] PAIN LEVEL 1-3 OR FEVER; Start 07/03/16 at 12:00 Acetaminophen/ Hydrocodone Bitart ([place] (5/325)) 2 tab Q6H PRN PO SEVERE PAIN LEVEL 7-10 Last administered on 07/20/16 07:05; Admin Dose 2 TAB; Start at 12:00 Docusate Sodium (Colace) 100 mg Q12H PRN PO CONSTIPATION Last administered on 13:51; Admin Dose 100 MG; Start 07/03/16 at 12:00 Magnesium Hydroxide (Milk Of Mag) 30 ml DAILY PRN PO CONSTIPATION Last administered on 07/10/16 12:59; Admin Dose 30 ML; Start 07/03/16 at 12:00 Bisacodyl (Dulcolax Supp) 10 mg DAILY PRN [place] CONSTIPATION Last administered on 07/11/16 14:30; Admin Dose 10 MG; Start 07/03/16 at 12:00 Aripiprazole (Abilify) 2 mg DAILY PO Last administered on 07/23/16 08:24; Admin Dose 2 MG; Start 07/04/16 at 09:00 Aspirin (Halfprin) 81 mg DAILY PO Last administered on 07/23/16 08:24; Admin Dose 81 MG; Start 07/04/16 at 09:00 Carbidopa/Levodopa (Sinemet (25/ 100)) 1 tab DAILY PO Last administered on 08:24; Admin Dose 1 TAB; Start 07/04/16 at 09:00 Clopidogrel Bisulfate (plaVIX) 75 mg DAILY PO Last administered on 07/23/16 08: 24; Admin Dose 75 MG; Start 07/04/16 at 09:00 Fluticasone Propionate (Flonase 0.05% Nasal) 1 spray BID NASAL Last administered on 07/23/16 20:01; Admin Dose 1 SPRAY; Start 07/03/16 at 21:00 Loratadine (Claritin) 10 mg DAILY PO Last administered on 07/23/16 08:24; Admin Dose 10 MG; Start 07/04/16 at 09:00 Meclizine HCl (Antivert) 25 mg Q12H PRN PO DIZZINESS; Start 07/03/16 at 14:30 Sertraline HCl (Zoloft) 50 mg DAILY PO Last administered on 07/23/16 08:25; Admin Dose 50 MG; Start 07/04/16 at 09:00 Atorvastatin Calcium (Lipitor) 10 mg QHS PO Last administered on 07/23/16 20:01 ; Admin Dose 10 MG; Start 07/03/16 at 21:00 Miscellaneous Information 1 ea NOTE XX ; Start 07/03/16 at 15:00 Glucose (Glutose) 15 gm Q15M PRN PO DECREASED GLUCOSE; Start 07/03/16 at 15:00 Glucose (Glutose) 22.5 gm Q15M PRN PO DECREASED GLUCOSE; Start 07/03/16 at 15: 00 Dextrose (D50w Syringe) 25 ml Q15M PRN IV DECREASED GLUCOSE; Start 07/03/16 at 15:00 Dextrose (D50w Syringe) 50 ml Q15M PRN IV DECREASED GLUCOSE; Start 07/03/16 at 15:00 Glucagon (Glucagen) 1 mg Q15M PRN IM DECREASED GLUCOSE; Start 07/03/16 at 15:00 Glucose (Glutose) 15 gm Q15M PRN BUCCAL DECREASED GLUCOSE; Start 07/03/16 at 15 :00 Citric Acid/ Sodium Citrate (Bicitra) 30 ml BID PO Last administered on 20:01; Admin Dose 30 ML; Start 07/04/16 at 21:00 Heparin Sodium (Porcine) (Heparin (5000 Units/0.5 ml)) 5,000 unit BID SC Last administered on 07/23/16 20:04; Admin Dose 5,000 UNIT; Start 07/05/16 at 21:00 Pantoprazole (Protonix Tab) 40 mg DAILY@06 PO Last administered on 07/23/16 06: 28; Admin Dose 40 MG; Start 07/07/16 at 06:00 Diagnostic Test (Pha) (Accucheck) 1 ea 02 XX Last administered on 07/17/16 02: 56; Admin Dose 1 EA; Start 07/08/16 at 02:00 Alprazolam (Xanax) 0.25 mg BID PO Last administered on 07/23/16 20:01; Admin Dose 0.25 MG; Start 07/07/16 at 11:30 Al Hydrox/Mg Hydrox/Simethicone (Mag-Al Plus) 30 ml Q6H PRN PO GASTROINTESTINAL UPSET Last administered on 07/07/16 11:35; Admin Dose 30 ML; Start 07/07/16 at 11:30 Acetaminophen/ Hydrocodone Bitart ([place] (5/325)) 1 tab Q3H PRN PO PAIN Last administered on 07/23/16 18:10; Admin Dose 1 TAB; Start 07/12/16 at 14:00 Hydromorphone HCl (Dilaudid) 1 mg Q2H PRN IV PAIN Last administered on 14:37; Admin Dose 1 MG; Start 07/12/16 at 16:30 Carvedilol (Coreg) 25 mg BID PO Last administered on 07/23/16 08:25; Admin Dose 25 MG; Start 07/19/16 at 09:00 PERRY ALVARES MD Jul 23, 2016 20:49
[2016-07-23 21:15] VITALS: BP 119/56; PULSE 86
[2016-07-24] MEDS: ACCUCHECK XX SCH (01:40)
[2016-07-24] MEDS: PANTOPRAZOLE (EC) 40 MG TAB PO SCH (06:05)
[2016-07-24 08:03] VITALS: BP 150/70; RESP 20
[2016-07-24 08:49] LABS: POTASSIUM 4.5 mmol/L (3.5-5.1)
[2016-07-24] MEDS: HEPARIN 5,000 UNIT/0.5 ML SYG SC SCH ×2 (08:50→21:24)
[2016-07-24 08:51] LABS: CREATININE 2.04 mg/dl (0.44-1.00)
[2016-07-24 08:52] LABS: CALCIUM 7.7 mg/dl (8.4-10.2)
[2016-07-24] MEDS: ARIPIPRAZOLE 2 MG TAB PO SCH (08:56)
[2016-07-24] MEDS: ALPRAZOLAM 0.25 MG TAB PO SCH ×2 (08:56→21:21)
[2016-07-24] MEDS: CARBIDOPA/LEVODOPA (25/100) TAB PO SCH (08:56)
[2016-07-24] MEDS: SERTRALINE 50 MG TAB PO SCH (08:56)
[2016-07-24] MEDS: ASPIRIN (EC) 81 MG TAB PO SCH (08:56)
[2016-07-24] MEDS: CITRIC ACID/NA CITRATE 30 ML CUP PO SCH ×2 (08:57→21:21)
[2016-07-24] MEDS: CLOPIDOGREL 75 MG TAB PO SCH (08:57)
[2016-07-24] MEDS: LORATADINE 10 MG TAB PO SCH (08:57)
[2016-07-24] MEDS: FLUTICASONE 0.05% 16 GM NAS SPRAY NASAL SCH ×2 (08:57→21:23)
[2016-07-24] MEDS: INSULIN ASPART [NOVOLOG] 3 ML PEN SC SCH ×4 (09:02→21:00)
[2016-07-24] MEDS: MEGESTROL (40 MG/ML) 10ML CUP PO SCH (11:56)
--- NOTE | 2016-07-24 14:07 | PN ---
Date/Time of Note Date/Time of Note DATE: 07/24/16 TIME: 14:05 Assessment/Plan VTE Prophylaxis VTE Prophylaxis Intervention: heparin Lines/Catheters IV [facility] Urinary Cath still in place: No Assessment/Plan Chief Complaint/Hosp Course X-ray indicates nondisplaced right subcapital femoral fracture that she had hemiarthroplasty on 07/12/2016. Patient haa anemia after the surgery with H/H 7/ 21.9 on 07/14/2016 and patient had hypotension that coreg/lisinipril were stopped. Patient got two units PRBCS transfusion, H/H improves to 10.4/30.9 on . I will resume coreg, adjust dosage and monitor blood pressure. Patient has chronic kidney disease. Last BUN/Cr are 38/2.34 on 07/17/2016. Metformin is stopped for renal failure. Januvia dosage will be 25 mg daily. Problems: Assessment/Plan 1. Right hip fracture s/p fall at home . s/p hemiarthroplasty of the right hip , follow up with ortho Dr. Byrd 2. Severe anemia, acute on chronic, blood loss, 2 units PRBC 07/14/2016, follow up with PCP 3. 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 Patient does follow-up with her physician Dr. Valenzuela as outpatient for this issue. She is status post radiation therapy reportedly 3 weeks ago. Patient follow-up with outpatient oncologist 4. Renal failure, likely CKD, follow up with PCP 5. History of CAD with previous CABG. stable 6. Essential hypertension. restart coreg 7. History of dyslipidemia. Follow-up on fasting lipid panel. 8. Reported history of diabetes. on Januvia, and ISS 9.. Influenza A positive. treated 10. E.Coli UTI, treated 11. DVT prophylaxis: heparin 12. Awaiting for placement-SNF, talked with case advocate Subjective 24 Hr Interval Summary Free Text/Dictation out of bed with PT but not waking yet. Talked to the patient and her daughter to encourage ambulating Exam/Review of Systems Vital Signs Vitals Vital Signs Date Time Temp Pulse Resp B/P Pulse Ox O2 Delivery O2 Flow Rate FiO2 07/24/16 08:03 98.6 79 20 150/70 97 Intake and Output 07/23/16 07/23/16 07/24/16 15:00 23:00 07:00 Intake Total 920 ml 480 ml Output Total 800 ml 1200 ml Balance 120 ml -720 ml Exam Constitutional: alert, oriented, well developed Psych: nl mood/affect, no complaints Head: atraumatic, normocephalic Eyes: EOMI, nl conjunctiva, nl lids ENMT: nl external ears & nose, nl lips & teeth Neck: non-tender, supple Respiratory: clear to auscultation, normal air movement, No congested cough, No crackles/rales, No diminished breath sounds, No intercostal retraction, No labored breathing, No other, No respirations, No tactile fremitus, No wheezing Cardiovascular: nl pulses, regular rate and rhythm, No S3, No S4, No bruits, No diastolic murmur, No edema, No gallop, No irregular rhythm, No jugular venous distention (JVD), No murmurs/extra sounds, No other, No rub, No systolic murmur Gastrointestinal: nl liver, spleen, non-tender, soft, No ascites, No bowel sounds, No distended, No firm, No hepatomegaly, No mass , No other, No rebound or guarding, No splenomegaly, No surgical scars, No tender Musculoskeletal: nl extremities to inspection Extremities: normal pulses, No calf tenderness, No clubbing, No cyanosis, No edema, No other, No palpable cord, No pitting pedal edema, No tenderness Neurological: [employer]PER[employer] II-XII intact, nl mental status, nl speech, nl strength Skin: nl turgor Results Result Diagram: 07/24/16 0520 Results 24 hrs Laboratory Tests Test 07/23/16 16:18 07/23/16 20:00 07/24/16 05:20 07/24/16 07:40 Bedside Glucose 177 149 98 Anion Gap 18 H Blood Urea Nitrogen 33 H Calcium Level 7.7 L Carbon Dioxide Level 22 Chloride Level 110 Creatinine 2.04 H Glucose Level 117 Potassium Level 4.5 Sodium Level 145 H Test 07/24/16 11:43 Bedside Glucose 123 Medications Medications Current Medications Ondansetron HCl (Zofran Inj) 4 mg Q6H PRN IV NAUSEA AND/OR VOMITING Last administered on 07/06/16t 11:46; Admin Dose 4 MG; Start 07/03/16 at 12:00 Acetaminophen (Tylenol Tab) 650 mg Q6H PRN PO PAIN LEVEL 1-3 OR FEVER Last administered on 07/23/16 06:28; Admin Dose 650 MG; Start 07/03/16 at 12:00 Acetaminophen (Tylenol Supp) 650 mg Q6H PRN [place] PAIN LEVEL 1-3 OR FEVER; Start 07/03/16 at 12:00 Acetaminophen/ Hydrocodone Bitart ([place] (5/325)) 2 tab Q6H PRN PO SEVERE PAIN LEVEL 7-10 Last administered on 07/20/16 07:05; Admin Dose 2 TAB; Start at 12:00 Docusate Sodium (Colace) 100 mg Q12H PRN PO CONSTIPATION Last administered on 13:51; Admin Dose 100 MG; Start 07/03/16 at 12:00 Magnesium Hydroxide (Milk Of Mag) 30 ml DAILY PRN PO CONSTIPATION Last administered on 07/10/16 12:59; Admin Dose 30 ML; Start 07/03/16 at 12:00 Bisacodyl (Dulcolax Supp) 10 mg DAILY PRN [place] CONSTIPATION Last administered on 07/11/16 14:30; Admin Dose 10 MG; Start 07/03/16 at 12:00 Aripiprazole (Abilify) 2 mg DAILY PO Last administered on 07/24/16 08:56; Admin Dose 2 MG; Start 07/04/16 at 09:00 Aspirin (Halfprin) 81 mg DAILY PO Last administered on 07/24/16 08:56; Admin Dose 81 MG; Start 07/04/16 at 09:00 Carbidopa/Levodopa (Sinemet (25/ 100)) 1 tab DAILY PO Last administered on 07/24 08:56; Admin Dose 1 TAB; Start 07/04/16 at 09:00 Clopidogrel Bisulfate (plaVIX) 75 mg DAILY PO Last administered on 07/24/16 08 :57; Admin Dose 75 MG; Start 07/04/16 at 09:00 Fluticasone Propionate (Flonase 0.05% Nasal) 1 spray BID NASAL Last administered on 07/24/16 08:57; Admin Dose 1 SPRAY; Start 07/03/16 at 21:00 Loratadine (Claritin) 10 mg DAILY PO Last administered on 07/24/16 08:57; Admin Dose 10 MG; Start 07/04/16 at 09:00 Meclizine HCl (Antivert) 25 mg Q12H PRN PO DIZZINESS; Start 07/03/16 at 14:30 Sertraline HCl (Zoloft) 50 mg DAILY PO Last administered on 07/24/16 08:56; Admin Dose 50 MG; Start 07/04/16 at 09:00 Atorvastatin Calcium (Lipitor) 10 mg QHS PO Last administered on 07/23/16 20:01 ; Admin Dose 10 MG; Start 07/03/16 at 21:00 Miscellaneous Information 1 ea NOTE XX ; Start 07/03/16 at 15:00 Glucose (Glutose) 15 gm Q15M PRN PO DECREASED GLUCOSE; Start 07/03/16 at 15:00 Glucose (Glutose) 22.5 gm Q15M PRN PO DECREASED GLUCOSE; Start 07/03/16 at 15: 00 Dextrose (D50w Syringe) 25 ml Q15M PRN IV DECREASED GLUCOSE; Start 07/03/16 at 15:00 Dextrose (D50w Syringe) 50 ml Q15M PRN IV DECREASED GLUCOSE; Start 07/03/16 at 15:00 Glucagon (Glucagen) 1 mg Q15M PRN IM DECREASED GLUCOSE; Start 07/03/16 at 15:00 Glucose (Glutose) 15 gm Q15M PRN BUCCAL DECREASED GLUCOSE; Start 07/03/16 at 15 :00 Citric Acid/ Sodium Citrate (Bicitra) 30 ml BID PO Last administered on 08:57; Admin Dose 30 ML; Start 07/04/16 at 21:00 Heparin Sodium (Porcine) (Heparin (5000 Units/0.5 ml)) 5,000 unit BID SC Last administered on 07/24/16 08:50; Admin Dose 5,000 UNIT; Start 07/05/16 at 21:00 Pantoprazole (Protonix Tab) 40 mg DAILY@06 PO Last administered on 07/24/16 06 :05; Admin Dose 40 MG; Start 07/07/16 at 06:00 Diagnostic Test (Pha) (Accucheck) 1 ea 02 XX Last administered on 07/17/16 02: 56; Admin Dose 1 EA; Start 07/08/16 at 02:00 Alprazolam (Xanax) 0.25 mg BID PO Last administered on 07/24/16 08:56; Admin Dose 0.25 MG; Start 07/07/16 at 11:30 Al Hydrox/Mg Hydrox/Simethicone (Mag-Al Plus) 30 ml Q6H PRN PO GASTROINTESTINAL UPSET Last administered on 07/07/16 11:35; Admin Dose 30 ML; Start 07/07/16 at 11:30 Acetaminophen/ Hydrocodone Bitart ([place] (5/325)) 1 tab Q3H PRN PO PAIN Last administered on 07/23/16 18:10; Admin Dose 1 TAB; Start 07/12/16 at 14:00 Hydromorphone HCl (Dilaudid) 1 mg Q2H PRN IV PAIN Last administered on 14:37; Admin Dose 1 MG; Start 07/12/16 at 16:30 Carvedilol (Coreg) 25 mg BID PO Last administered on 07/24/16 08:57; Admin Dose 25 MG; Start 07/19/16 at 09:00 FERNANDO ALFARO MD Jul 24, 2016 14:07
--- NOTE | 2016-07-24 18:33 | CONS ---
Date/Time of Note Date/Time of Note DATE: 07/24/16 TIME: 18:32 Assessment/Plan Assessment/Plan Chief Complaint/Hosp Course IMPRESSION: 1. Patient has [id number] kidney disease, acute renal failure due to prerenal azotemia.BETTER 2. 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 Hyperkalemia better 4. Anemia of possibly chronic kidney disease. ang post op anemia 5. Metabolic acidosis. better 6. The patient also is status post fall with right hip fracture. PER ORTHO S/P SURGERY 7. Coronary artery disease with coronary artery bypass graft. 8. History of hysterectomy. 9. History of breast cancer, surgery on treatment. 10. Underlying chronic tubular interstitial nephritis. 11. proteinuria. 12 UTI 13 S/P RT HIP HEMIARTHROPLASTY 14 influenza a plan ck bmp avoid nephrotoxic drugs BMP renal stable Problems: Consultation Date/Type/Reason Admit Date/Time Jul 03, 2016 at 11:46 Initial Consult Date 07/03/16 Type of Consultation: RENAL Referring Provider: JUNI NUNEZ 24 HR Interval Summary Constitutional: no complaints Exam/Review of Systems Vital Signs Vitals Vital Signs Date Time Temp Pulse Resp B/P Pulse Ox O2 Delivery O2 Flow Rate FiO2 07/24/16 08:03 98.6 79 20 150/70 97 Intake and Output 07/23/16 07/23/16 07/24/16 15:00 23:00 07:00 Intake Total 920 ml 480 ml Output Total 800 ml 1200 ml Balance 120 ml -720 ml Exam Neck: supple Respiratory: clear to auscultation Cardiovascular: regular rate and rhythm Results Result Diagram: 07/24/16 0520 Results 24 hrs Laboratory Tests Test 07/23/16 20:00 07/24/16 05:20 07/24/16 07:40 07/24/16 11:43 Bedside Glucose 149 98 123 Anion Gap 18 H Blood Urea Nitrogen 33 H Calcium Level 7.7 L Carbon Dioxide Level 22 Chloride Level 110 Creatinine 2.04 H Glucose Level 117 Potassium Level 4.5 Sodium Level 145 H Test 07/24/16 16:57 Bedside Glucose 124 Medications Medications Current Medications Ondansetron HCl (Zofran Inj) 4 mg Q6H PRN IV NAUSEA AND/OR VOMITING Last administered on 07/06/16t 11:46; Admin Dose 4 MG; Start 07/03/16 at 12:00 Acetaminophen (Tylenol Tab) 650 mg Q6H PRN PO PAIN LEVEL 1-3 OR FEVER Last administered on 07/23/16 06:28; Admin Dose 650 MG; Start 07/03/16 at 12:00 Acetaminophen (Tylenol Supp) 650 mg Q6H PRN [place] PAIN LEVEL 1-3 OR FEVER; Start 07/03/16 at 12:00 Acetaminophen/ Hydrocodone Bitart ([place] (5/325)) 2 tab Q6H PRN PO SEVERE PAIN LEVEL 7-10 Last administered on 07/20/16 07:05; Admin Dose 2 TAB; Start at 12:00 Docusate Sodium (Colace) 100 mg Q12H PRN PO CONSTIPATION Last administered on 13:51; Admin Dose 100 MG; Start 07/03/16 at 12:00 Magnesium Hydroxide (Milk Of Mag) 30 ml DAILY PRN PO CONSTIPATION Last administered on 07/10/16 12:59; Admin Dose 30 ML; Start 07/03/16 at 12:00 Bisacodyl (Dulcolax Supp) 10 mg DAILY PRN [place] CONSTIPATION Last administered on 07/11/16 14:30; Admin Dose 10 MG; Start 07/03/16 at 12:00 Aripiprazole (Abilify) 2 mg DAILY PO Last administered on 07/24/16 08:56; Admin Dose 2 MG; Start 07/04/16 at 09:00 Aspirin (Halfprin) 81 mg DAILY PO Last administered on 07/24/16 08:56; Admin Dose 81 MG; Start 07/04/16 at 09:00 Carbidopa/Levodopa (Sinemet (25/ 100)) 1 tab DAILY PO Last administered on 07/24 08:56; Admin Dose 1 TAB; Start 07/04/16 at 09:00 Clopidogrel Bisulfate (plaVIX) 75 mg DAILY PO Last administered on 07/24/16 08 :57; Admin Dose 75 MG; Start 07/04/16 at 09:00 Fluticasone Propionate (Flonase 0.05% Nasal) 1 spray BID NASAL Last administered on 07/24/16 08:57; Admin Dose 1 SPRAY; Start 07/03/16 at 21:00 Loratadine (Claritin) 10 mg DAILY PO Last administered on 07/24/16 08:57; Admin Dose 10 MG; Start 07/04/16 at 09:00 Meclizine HCl (Antivert) 25 mg Q12H PRN PO DIZZINESS; Start 07/03/16 at 14:30 Sertraline HCl (Zoloft) 50 mg DAILY PO Last administered on 07/24/16 08:56; Admin Dose 50 MG; Start 07/04/16 at 09:00 Atorvastatin Calcium (Lipitor) 10 mg QHS PO Last administered on 07/23/16 20:01 ; Admin Dose 10 MG; Start 07/03/16 at 21:00 Miscellaneous Information 1 ea NOTE XX ; Start 07/03/16 at 15:00 Glucose (Glutose) 15 gm Q15M PRN PO DECREASED GLUCOSE; Start 07/03/16 at 15:00 Glucose (Glutose) 22.5 gm Q15M PRN PO DECREASED GLUCOSE; Start 07/03/16 at 15: 00 Dextrose (D50w Syringe) 25 ml Q15M PRN IV DECREASED GLUCOSE; Start 07/03/16 at 15:00 Dextrose (D50w Syringe) 50 ml Q15M PRN IV DECREASED GLUCOSE; Start 07/03/16 at 15:00 Glucagon (Glucagen) 1 mg Q15M PRN IM DECREASED GLUCOSE; Start 07/03/16 at 15:00 Glucose (Glutose) 15 gm Q15M PRN BUCCAL DECREASED GLUCOSE; Start 07/03/16 at 15 :00 Citric Acid/ Sodium Citrate (Bicitra) 30 ml BID PO Last administered on 08:57; Admin Dose 30 ML; Start 07/04/16 at 21:00 Heparin Sodium (Porcine) (Heparin (5000 Units/0.5 ml)) 5,000 unit BID SC Last administered on 07/24/16 08:50; Admin Dose 5,000 UNIT; Start 07/05/16 at 21:00 Pantoprazole (Protonix Tab) 40 mg DAILY@06 PO Last administered on 07/24/16 06 :05; Admin Dose 40 MG; Start 07/07/16 at 06:00 Diagnostic Test (Pha) (Accucheck) 1 ea 02 XX Last administered on 07/17/16 02: 56; Admin Dose 1 EA; Start 07/08/16 at 02:00 Alprazolam (Xanax) 0.25 mg BID PO Last administered on 07/24/16 08:56; Admin Dose 0.25 MG; Start 07/07/16 at 11:30 Al Hydrox/Mg Hydrox/Simethicone (Mag-Al Plus) 30 ml Q6H PRN PO GASTROINTESTINAL UPSET Last administered on 07/07/16 11:35; Admin Dose 30 ML; Start 07/07/16 at 11:30 Acetaminophen/ Hydrocodone Bitart ([place] (5/325)) 1 tab Q3H PRN PO PAIN Last administered on 07/23/16 18:10; Admin Dose 1 TAB; Start 07/12/16 at 14:00 Hydromorphone HCl (Dilaudid) 1 mg Q2H PRN IV PAIN Last administered on 14:37; Admin Dose 1 MG; Start 07/12/16 at 16:30 Carvedilol (Coreg) 25 mg BID PO Last administered on 07/24/16 08:57; Admin Dose 25 MG; Start 07/19/16 at 09:00 PERRY ALVARES MD Jul 24, 2016 18:32
[2016-07-24 21:03] VITALS: BP 110/56; RESP 19
[2016-07-24] MEDS: ATORVASTATIN 10 MG TAB PO SCH (21:23)
[2016-07-24] MEDS: ACETAMINOPHEN 325 MG TAB PO PRN (21:30)
[2016-07-25] MEDS: ACCUCHECK XX SCH (02:00)
[2016-07-25] MEDS: PANTOPRAZOLE (EC) 40 MG TAB PO SCH (05:27)
[2016-07-25 06:16] LABS: ADD SCAN DIFF NO
[2016-07-25 06:30] LABS: BASOPHILS % 0.3 % (0.0-2.0); EOSINOPHILS # 0.2 10^3/ul (0.0-0.5); EOSINOPHILS % 3.9 % (0.0-7.0); HEMATOCRIT 28.6 % (37.0-47.0); HEMOGLOBIN 8.8 g/dl (12.0-16.0); LYMPHOCYTES # 1.1 10^3/ul (0.8-2.9); LYMPHOCYTES % 17.5 % (15.0-51.0); MEAN CORPUSCULAR HEMOGLOBIN 28.8 pg (29.0-33.0); MEAN CORPUSCULAR HGB CONC 30.8 g/dl (32.0-37.0); MEAN CORPUSCULAR VOLUME 93.5 fl (82.0-101.0); MEAN PLATELET VOLUME 10.5 fl (7.4-10.4); MONOCYTE # 0.5 10^3/ul (0.3-0.9); MONOCYTES % 8.3 % (0.0-11.0); NEUTROPHIL # 4.2 10^3/ul (1.6-7.5); NEUTROPHILS % 67.9 % (39.0-77.0); PLATELET COUNT 217 10^3/UL (140-415); RED BLOOD COUNT 3.06 10^6/ul (4.20-5.40); RED CELL DISTRIBUTION WIDTH 17.2 % (11.5-14.5); WHITE BLOOD COUNT 6.2 10^3/ul (4.8-10.8)
[2016-07-25 06:54] LABS: POTASSIUM 4.5 mmol/L (3.5-5.1)
[2016-07-25 06:56] LABS: CREATININE 2.09 mg/dl (0.44-1.00)
[2016-07-25 06:57] LABS: CALCIUM 7.7 mg/dl (8.4-10.2)
[2016-07-25] MEDS: INSULIN ASPART [NOVOLOG] 3 ML PEN SC SCH ×4 (08:00→20:13)
[2016-07-25 08:14] VITALS: BP 151/65; RESP 16
[2016-07-25] MEDS: ALPRAZOLAM 0.25 MG TAB PO SCH ×2 (08:18→20:14)
[2016-07-25] MEDS: CARBIDOPA/LEVODOPA (25/100) TAB PO SCH (08:18)
[2016-07-25] MEDS: CITRIC ACID/NA CITRATE 30 ML CUP PO SCH ×2 (08:19→20:13)
[2016-07-25] MEDS: FLUTICASONE 0.05% 16 GM NAS SPRAY NASAL SCH ×2 (08:19→20:13)
[2016-07-25] MEDS: CLOPIDOGREL 75 MG TAB PO SCH (08:19)
[2016-07-25] MEDS: ASPIRIN (EC) 81 MG TAB PO SCH (08:19)
[2016-07-25] MEDS: LORATADINE 10 MG TAB PO SCH (08:19)
[2016-07-25] MEDS: SERTRALINE 50 MG TAB PO SCH (08:19)
[2016-07-25] MEDS: ARIPIPRAZOLE 2 MG TAB PO SCH (08:19)
[2016-07-25] MEDS: HEPARIN 5,000 UNIT/0.5 ML SYG SC SCH ×2 (08:21→20:14)
[2016-07-25] MEDS: HYDROmorphONE 1 MG/ML SYG IV PRN (09:39)
[2016-07-25] MEDS: MEGESTROL (40 MG/ML) 10ML CUP PO SCH (11:12)
--- NOTE | 2016-07-25 11:48 | PN ---
Date/Time of Note Date/Time of Note DATE: 07/25/16 TIME: 11:44 Assessment/Plan VTE Prophylaxis VTE Prophylaxis Intervention: other Lines/Catheters IV [facility] Type [facility] Saline Lock Urinary Cath still in place: No Assessment/Plan Problems: (1) History of right hip hemiarthroplasty Status: Acute Comment: She is postop and going through physical therapy here in the hospital. It is a slow process due to her other medical issues including the organic brain syndrome. 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 Comment: Stable Subjective 24 Hr Interval Summary Free Text/Dictation Kiswahili speaking female lying in bed arouses with stimulation indicates no issues Exam/Review of Systems Vital Signs Vitals Vital Signs Date Time Temp Pulse Resp B/P Pulse Ox O2 Delivery O2 Flow Rate FiO2 07/25/16 08:14 98.1 80 16 151/65 96 Intake and Output 07/24/16 07/24/16 07/25/16 15:00 23:00 07:00 Intake Total 1360 ml 220 ml Output Total 1350 ml Balance 10 ml 220 ml Exam Arousable with stimulation Respiratory: clear to auscultation, normal air movement Cardiovascular: nl pulses, regular rate and rhythm Gastrointestinal: nl liver, spleen, non-tender, soft Results Result Diagram: 07/25/16 0544 07/25/16 0544 Results 24 hrs Laboratory Tests Test 07/24/16 16:57 07/24/16 21:27 07/25/16 05:44 07/25/16 07:17 Bedside Glucose 124 152 112 Anion Gap 17 H Basophils # 0.0 Basophils % 0.3 Blood Urea Nitrogen 34 H Calcium Level 7.7 L Carbon Dioxide Level 20 L Chloride Level 109 Creatinine 2.09 H Eosinophils # 0.2 Eosinophils % 3.9 Glucose Level 117 Hematocrit 28.6 L Hemoglobin 8.8 L Lymphocytes # 1.1 Lymphocytes % 17.5 Mean Corpuscular Hemoglobin 28.8 L Mean Corpuscular Hemoglobin Concent 30.8 L Mean Corpuscular Volume 93.5 Mean Platelet Volume 10.5 H Monocytes # 0.5 Monocytes % 8.3 Neutrophils # 4.2 Neutrophils % 67.9 Nucleated Red Blood Cells # 0.0 Nucleated Red Blood Cells % 0.0 Platelet Count 217 # Potassium Level 4.5 Red Blood Count 3.06 L Red Cell Distribution Width 17.2 H Sodium Level 141 White Blood Count 6.2 # Medications Medications Current Medications Ondansetron HCl (Zofran Inj) 4 mg Q6H PRN IV NAUSEA AND/OR VOMITING Last administered on 07/06/16 11:46; Admin Dose 4 MG; Start 07/03/16 at 12:00 Acetaminophen (Tylenol Tab) 650 mg Q6H PRN PO PAIN LEVEL 1-3 OR FEVER Last administered on 07/24/16 21:30; Admin Dose 650 MG; Start 07/03/16 at 12:00 Acetaminophen (Tylenol Supp) 650 mg Q6H PRN [place] PAIN LEVEL 1-3 OR FEVER; Start 07/03/16 at 12:00 Acetaminophen/ Hydrocodone Bitart ([place] (5/325)) 2 tab Q6H PRN PO SEVERE PAIN LEVEL 7-10 Last administered on 07/20/16 07:05; Admin Dose 2 TAB; Start at 12:00 Docusate Sodium (Colace) 100 mg Q12H PRN PO CONSTIPATION Last administered on 13:51; Admin Dose 100 MG; Start 07/03/16 at 12:00 Magnesium Hydroxide (Milk Of Mag) 30 ml DAILY PRN PO CONSTIPATION Last administered on 07/10/16 12:59; Admin Dose 30 ML; Start 07/03/16 at 12:00 Bisacodyl (Dulcolax Supp) 10 mg DAILY PRN [place] CONSTIPATION Last administered on 07/11/16 14:30; Admin Dose 10 MG; Start 07/03/16 at 12:00 Aripiprazole (Abilify) 2 mg DAILY PO Last administered on 07/25/16 08:19; Admin Dose 2 MG; Start 07/04/16 at 09:00 Aspirin (Halfprin) 81 mg DAILY PO Last administered on 07/25/16 08:19; Admin Dose 81 MG; Start 07/04/16 at 09:00 Carbidopa/Levodopa (Sinemet (25/ 100)) 1 tab DAILY PO Last administered on 07/25 08:18; Admin Dose 1 TAB; Start 07/04/16 at 09:00 Clopidogrel Bisulfate (plaVIX) 75 mg DAILY PO Last administered on 07/25/16 08 :19; Admin Dose 75 MG; Start 07/04/16 at 09:00 Fluticasone Propionate (Flonase 0.05% Nasal) 1 spray BID NASAL Last administered on 07/25/16 08:19; Admin Dose 1 SPRAY; Start 07/03/16 at 21:00 Loratadine (Claritin) 10 mg DAILY PO Last administered on 07/25/16 08:19; Admin Dose 10 MG; Start 07/04/16 at 09:00 Meclizine HCl (Antivert) 25 mg Q12H PRN PO DIZZINESS; Start 07/03/16 at 14:30 Sertraline HCl (Zoloft) 50 mg DAILY PO Last administered on 07/25/16 08:19; Admin Dose 50 MG; Start 07/04/16 at 09:00 Atorvastatin Calcium (Lipitor) 10 mg QHS PO Last administered on 07/24/16 21: 23; Admin Dose 10 MG; Start 07/03/16 at 21:00 Miscellaneous Information 1 ea NOTE XX ; Start 07/03/16 at 15:00 Glucose (Glutose) 15 gm Q15M PRN PO DECREASED GLUCOSE; Start 07/03/16 at 15:00 Glucose (Glutose) 22.5 gm Q15M PRN PO DECREASED GLUCOSE; Start 07/03/16 at 15: 00 Dextrose (D50w Syringe) 25 ml Q15M PRN IV DECREASED GLUCOSE; Start 07/03/16 at 15:00 Dextrose (D50w Syringe) 50 ml Q15M PRN IV DECREASED GLUCOSE; Start 07/03/16 at 15:00 Glucagon (Glucagen) 1 mg Q15M PRN IM DECREASED GLUCOSE; Start 07/03/16 at 15:00 Glucose (Glutose) 15 gm Q15M PRN BUCCAL DECREASED GLUCOSE; Start 07/03/16 at 15 :00 Citric Acid/ Sodium Citrate (Bicitra) 30 ml BID PO Last administered on 08:19; Admin Dose 30 ML; Start 07/04/16 at 21:00 Heparin Sodium (Porcine) (Heparin (5000 Units/0.5 ml)) 5,000 unit BID SC Last administered on 07/25/16 08:21; Admin Dose 5,000 UNIT; Start 07/05/16 at 21:00 Pantoprazole (Protonix Tab) 40 mg DAILY@06 PO Last administered on 07/25/16 05 :27; Admin Dose 40 MG; Start 07/07/16 at 06:00 Diagnostic Test (Pha) (Accucheck) 1 ea 02 XX Last administered on 07/17/16 02: 56; Admin Dose 1 EA; Start 07/08/16 at 02:00 Alprazolam (Xanax) 0.25 mg BID PO Last administered on 07/25/16 08:18; Admin Dose 0.25 MG; Start 07/07/16 at 11:30 Al Hydrox/Mg Hydrox/Simethicone (Mag-Al Plus) 30 ml Q6H PRN PO GASTROINTESTINAL UPSET Last administered on 07/07/16 11:35; Admin Dose 30 ML; Start 07/07/16 at 11:30 Acetaminophen/ Hydrocodone Bitart ([place] (5/325)) 1 tab Q3H PRN PO PAIN Last administered on 07/23/16 18:10; Admin Dose 1 TAB; Start 07/12/16 at 14:00 Hydromorphone HCl (Dilaudid) 1 mg Q2H PRN IV PAIN Last administered on 09:39; Admin Dose 1 MG; Start 07/12/16 at 16:30 Carvedilol (Coreg) 25 mg BID PO Last administered on 07/25/16 08:20; Admin Dose 25 MG; Start 07/19/16 at 09:00 HELENA ARSHAD MD Jul 25, 2016 11:48
--- NOTE | 2016-07-25 19:23 | CONS ---
Date/Time of Note Date/Time of Note DATE: 07/25/16 TIME: 19:22 Assessment/Plan Assessment/Plan Chief Complaint/Hosp Course IMPRESSION: 1. Patient has [id number] kidney disease, acute renal failure due to prerenal azotemia.BETTER 2. 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 Hyperkalemia better 4. Anemia of possibly chronic kidney disease. ang post op anemia 5. Metabolic acidosis. better 6. The patient also is status post fall with right hip fracture. PER ORTHO S/P SURGERY 7. Coronary artery disease with coronary artery bypass graft. 8. History of hysterectomy. 9. History of breast cancer, surgery on treatment. 10. Underlying chronic tubular interstitial nephritis. 11. proteinuria. 12 UTI 13 S/P RT HIP HEMIARTHROPLASTY 14 influenza a plan ck bmp avoid nephrotoxic drugs BMP renal stable Problems: Consultation Date/Type/Reason Admit Date/Time Jul 03, 2016 at 11:46 Initial Consult Date 07/03/16 Type of Consultation: RENAL Referring Provider: JUNI NUNEZ 24 HR Interval Summary Constitutional: no complaints Exam/Review of Systems Vital Signs Vitals Vital Signs Date Time Temp Pulse Resp B/P Pulse Ox O2 Delivery O2 Flow Rate FiO2 07/25/16 08:14 98.1 80 16 151/65 96 Intake and Output 07/24/16 07/24/16 07/25/16 14:59 22:59 06:59 Intake Total 1360 ml 220 ml Output Total 1350 ml Balance 10 ml 220 ml Exam Respiratory: clear to auscultation Cardiovascular: regular rate and rhythm Gastrointestinal: soft Extremities: edema (tr) Results Result Diagram: 07/25/16 0544 07/25/16 0544 Results 24 hrs Laboratory Tests Test 07/24/16 21:27 07/25/16 05:44 07/25/16 07:17 07/25/16 16:52 Bedside Glucose 152 112 115 Anion Gap 17 H Basophils # 0.0 Basophils % 0.3 Blood Urea Nitrogen 34 H Calcium Level 7.7 L Carbon Dioxide Level 20 L Chloride Level 109 Creatinine 2.09 H Eosinophils # 0.2 Eosinophils % 3.9 Glucose Level 117 Hematocrit 28.6 L Hemoglobin 8.8 L Lymphocytes # 1.1 Lymphocytes % 17.5 Mean Corpuscular Hemoglobin 28.8 L Mean Corpuscular Hemoglobin Concent 30.8 L Mean Corpuscular Volume 93.5 Mean Platelet Volume 10.5 H Monocytes # 0.5 Monocytes % 8.3 Neutrophils # 4.2 Neutrophils % 67.9 Nucleated Red Blood Cells # 0.0 Nucleated Red Blood Cells % 0.0 Platelet Count 217 # Potassium Level 4.5 Red Blood Count 3.06 L Red Cell Distribution Width 17.2 H Sodium Level 141 White Blood Count 6.2 # Medications Medications Current Medications Ondansetron HCl (Zofran Inj) 4 mg Q6H PRN IV NAUSEA AND/OR VOMITING Last administered on 07/06/16 11:46; Admin Dose 4 MG; Start 07/03/16 at 12:00 Acetaminophen (Tylenol Tab) 650 mg Q6H PRN PO PAIN LEVEL 1-3 OR FEVER Last administered on 07/24/16 21:30; Admin Dose 650 MG; Start 07/03/16 at 12:00 Acetaminophen (Tylenol Supp) 650 mg Q6H PRN [place] PAIN LEVEL 1-3 OR FEVER; Start 07/03/16 at 12:00 Docusate Sodium (Colace) 100 mg Q12H PRN PO CONSTIPATION Last administered on 13:51; Admin Dose 100 MG; Start 07/03/16 at 12:00 Magnesium Hydroxide (Milk Of Mag) 30 ml DAILY PRN PO CONSTIPATION Last administered on 07/10/16 12:59; Admin Dose 30 ML; Start 07/03/16 at 12:00 Bisacodyl (Dulcolax Supp) 10 mg DAILY PRN [place] CONSTIPATION Last administered on 07/11/16 14:30; Admin Dose 10 MG; Start 07/03/16 at 12:00 Aripiprazole (Abilify) 2 mg DAILY PO Last administered on 07/25/16 08:19; Admin Dose 2 MG; Start 07/04/16 at 09:00 Aspirin (Halfprin) 81 mg DAILY PO Last administered on 07/25/16 08:19; Admin Dose 81 MG; Start 07/04/16 at 09:00 Carbidopa/Levodopa (Sinemet (25/ 100)) 1 tab DAILY PO Last administered on 07/25 08:18; Admin Dose 1 TAB; Start 07/04/16 at 09:00 Clopidogrel Bisulfate (plaVIX) 75 mg DAILY PO Last administered on 07/25/16 08 :19; Admin Dose 75 MG; Start 07/04/16 at 09:00 Fluticasone Propionate (Flonase 0.05% Nasal) 1 spray BID NASAL Last administered on 07/25/16 08:19; Admin Dose 1 SPRAY; Start 07/03/16 at 21:00 Loratadine (Claritin) 10 mg DAILY PO Last administered on 07/25/16 08:19; Admin Dose 10 MG; Start 07/04/16 at 09:00 Meclizine HCl (Antivert) 25 mg Q12H PRN PO DIZZINESS; Start 07/03/16 at 14:30 Sertraline HCl (Zoloft) 50 mg DAILY PO Last administered on 07/25/16 08:19; Admin Dose 50 MG; Start 07/04/16 at 09:00 Atorvastatin Calcium (Lipitor) 10 mg QHS PO Last administered on 07/24/16 21: 23; Admin Dose 10 MG; Start 07/03/16 at 21:00 Miscellaneous Information 1 ea NOTE XX ; Start 07/03/16 at 15:00 Glucose (Glutose) 15 gm Q15M PRN PO DECREASED GLUCOSE; Start 07/03/16 at 15:00 Glucose (Glutose) 22.5 gm Q15M PRN PO DECREASED GLUCOSE; Start 07/03/16 at 15: 00 Dextrose (D50w Syringe) 25 ml Q15M PRN IV DECREASED GLUCOSE; Start 07/03/16 at 15:00 Dextrose (D50w Syringe) 50 ml Q15M PRN IV DECREASED GLUCOSE; Start 07/03/16 at 15:00 Glucagon (Glucagen) 1 mg Q15M PRN IM DECREASED GLUCOSE; Start 07/03/16 at 15:00 Glucose (Glutose) 15 gm Q15M PRN BUCCAL DECREASED GLUCOSE; Start 07/03/16 at 15 :00 Citric Acid/ Sodium Citrate (Bicitra) 30 ml BID PO Last administered on 08:19; Admin Dose 30 ML; Start 07/04/16 at 21:00 Heparin Sodium (Porcine) (Heparin (5000 Units/0.5 ml)) 5,000 unit BID SC Last administered on 07/25/16 08:21; Admin Dose 5,000 UNIT; Start 07/05/16 at 21:00 Pantoprazole (Protonix Tab) 40 mg DAILY@06 PO Last administered on 07/25/16 05 :27; Admin Dose 40 MG; Start 07/07/16 at 06:00 Diagnostic Test (Pha) (Accucheck) 1 ea 02 XX Last administered on 07/17/16 02: 56; Admin Dose 1 EA; Start 07/08/16 at 02:00 Alprazolam (Xanax) 0.25 mg BID PO Last administered on 07/25/16 08:18; Admin Dose 0.25 MG; Start 07/07/16 at 11:30 Al Hydrox/Mg Hydrox/Simethicone (Mag-Al Plus) 30 ml Q6H PRN PO GASTROINTESTINAL UPSET Last administered on 07/07/16 11:35; Admin Dose 30 ML; Start 07/07/16 at 11:30 Carvedilol (Coreg) 25 mg BID PO Last administered on 07/25/16 08:20; Admin Dose 25 MG; Start 07/19/16 at 09:00 PERRY ALVARES MD Jul 25, 2016 19:23
[2016-07-25] MEDS: ATORVASTATIN 10 MG TAB PO SCH (20:14)
[2016-07-25 21:41] VITALS: BP 121/56; RESP 20
[2016-07-26] MEDS: ACCUCHECK XX SCH (02:00)
[2016-07-26] MEDS: ACETAMINOPHEN 325 MG TAB PO PRN ×2 (03:14→11:05)
[2016-07-26] MEDS: PANTOPRAZOLE (EC) 40 MG TAB PO SCH (05:15)
[2016-07-26] MEDS: INSULIN ASPART [NOVOLOG] 3 ML PEN SC SCH ×4 (07:55→21:00)
[2016-07-26] MEDS: HEPARIN 5,000 UNIT/0.5 ML SYG SC SCH ×2 (08:06→21:12)
[2016-07-26] MEDS: ASPIRIN (EC) 81 MG TAB PO SCH (08:07)
[2016-07-26] MEDS: ARIPIPRAZOLE 2 MG TAB PO SCH (08:07)
[2016-07-26] MEDS: CITRIC ACID/NA CITRATE 30 ML CUP PO SCH ×2 (08:07→21:11)
[2016-07-26] MEDS: CARBIDOPA/LEVODOPA (25/100) TAB PO SCH ×2 (08:07→13:30)
[2016-07-26] MEDS: FLUTICASONE 0.05% 16 GM NAS SPRAY NASAL SCH ×2 (08:07→21:11)
[2016-07-26] MEDS: CLOPIDOGREL 75 MG TAB PO SCH (08:07)
[2016-07-26] MEDS: ALPRAZOLAM 0.25 MG TAB PO SCH (08:07)
[2016-07-26] MEDS: SERTRALINE 50 MG TAB PO SCH (08:07)
[2016-07-26] MEDS: LORATADINE 10 MG TAB PO SCH (08:07)
[2016-07-26] MEDS: DOCUSATE SODIUM 100 MG CAP PO PRN (08:08)
[2016-07-26 08:46] VITALS: BP 158/65; RESP 20
--- NOTE | 2016-07-26 10:33 | PN ---
Date/Time of Note Date/Time of Note DATE: 07/26/16 TIME: 10:29 Assessment/Plan VTE Prophylaxis VTE Prophylaxis Intervention: other Lines/Catheters IV [facility] Type [facility]from [facility] Saline Lock Urinary Cath still in place: No Assessment/Plan Problems: (1) Parkinson's disease (tremor, stiffness, slow motion, unstable posture) Status: Chronic Comment: In reviewing the medication list I feel that the medication for Parkinson's disease may be a little bit under dosed. As such the Sinemet will be increased to twice daily. In addition I will lower the dosage on the alprazolam to nightly only so she will be more awake during the daytime (2) Chronic kidney disease, stage 3 (moderate) Status: Chronic Comment: She is stable and at a baseline state. (3) Primary cancer of left breast with metastasis to other site Status: Chronic Comment: Her primary oncologist does not come to this facility will try and get her mobilized and out back to the oncologist as soon as possible (4) Hyperlipidemia Status: Chronic Comment: Stable on treatment Qualifiers: Hyperlipidemia type: pure hypercholesterolemia Qualified Code: E78.00 - Pure hypercholesterolemia (5) Essential hypertension Status: Chronic Comment: Blood pressure is under fair control. 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 We will try and decrease the exposure to narcotics and decreased benzodiazepine (7) History of right hip hemiarthroplasty Status: Acute Comment: Recuperating postop. Subjective 24 Hr Interval Summary Free Text/Dictation Patient sleeping in bed. Please see nursing notes Exam/Review of Systems Vital Signs Vitals Vital Signs Date Time Temp Pulse Resp B/P Pulse Ox O2 Delivery O2 Flow Rate FiO2 07/26/16 08:46 99.0 83 20 158/65 96 Intake and Output 07/25/16 07/25/16 07/26/16 15:00 23:00 07:00 Intake Total 680 ml 220 ml Balance 680 ml 220 ml Exam Arousable Neck: non-tender, supple Respiratory: clear to auscultation, normal air movement Cardiovascular: nl pulses, regular rate and rhythm Gastrointestinal: nl liver, spleen, non-tender, soft Neurological: other (Patient has some stiffness and cogwheeling with minimal rigidity and masklike face ease) Results Result Diagram: 07/25/16 0544 07/25/16 0544 Results 24 hrs Laboratory Tests Test 07/25/16 16:52 07/25/16 19:37 07/26/16 07:36 Bedside Glucose 115 137 119 Medications Medications Current Medications Ondansetron HCl (Zofran Inj) 4 mg Q6H PRN IV NAUSEA AND/OR VOMITING Last administered on 07/06/16 11:46; Admin Dose 4 MG; Start 07/03/16 at 12:00 Acetaminophen (Tylenol Tab) 650 mg Q6H PRN PO PAIN LEVEL 1-3 OR FEVER Last administered on 07/26/16 03:14; Admin Dose 650 MG; Start 07/03/16 at 12:00 Acetaminophen (Tylenol Supp) 650 mg Q6H PRN [place] PAIN LEVEL 1-3 OR FEVER; Start 07/03/16 at 12:00 Docusate Sodium (Colace) 100 mg Q12H PRN PO CONSTIPATION Last administered on 13:51; Admin Dose 100 MG; Start 07/03/16 at 12:00 Magnesium Hydroxide (Milk Of Mag) 30 ml DAILY PRN PO CONSTIPATION Last administered on 07/10/16 12:59; Admin Dose 30 ML; Start 07/03/16 at 12:00 Bisacodyl (Dulcolax Supp) 10 mg DAILY PRN [place] CONSTIPATION Last administered on 07/11/16 14:30; Admin Dose 10 MG; Start 07/03/16 at 12:00 Aripiprazole (Abilify) 2 mg DAILY PO Last administered on 07/26/16 08:07; Admin Dose 2 MG; Start 07/04/16 at 09:00 Aspirin (Halfprin) 81 mg DAILY PO Last administered on 07/26/16 08:07; Admin Dose 81 MG; Start 07/04/16 at 09:00 Carbidopa/Levodopa (Sinemet (25/ 100)) 1 tab DAILY PO Last administered on 07/26 08:07; Admin Dose 1 TAB; Start 07/04/16 at 09:00 Clopidogrel Bisulfate (plaVIX) 75 mg DAILY PO Last administered on 07/26/16 08 :07; Admin Dose 75 MG; Start 07/04/16 at 09:00 Fluticasone Propionate (Flonase 0.05% Nasal) 1 spray BID NASAL Last administered on 07/26/16 08:07; Admin Dose 1 SPRAY; Start 07/03/16 at 21:00 Loratadine (Claritin) 10 mg DAILY PO Last administered on 07/26/16 08:07; Admin Dose 10 MG; Start 07/04/16 at 09:00 Meclizine HCl (Antivert) 25 mg Q12H PRN PO DIZZINESS; Start 07/03/16 at 14:30 Sertraline HCl (Zoloft) 50 mg DAILY PO Last administered on 07/26/16 08:07; Admin Dose 50 MG; Start 07/04/16 at 09:00 Atorvastatin Calcium (Lipitor) 10 mg QHS PO Last administered on 07/25/16 20: 14; Admin Dose 10 MG; Start 07/03/16 at 21:00 Miscellaneous Information 1 ea NOTE XX ; Start 07/03/16 at 15:00 Glucose (Glutose) 15 gm Q15M PRN PO DECREASED GLUCOSE; Start 07/03/16 at 15:00 Glucose (Glutose) 22.5 gm Q15M PRN PO DECREASED GLUCOSE; Start 07/03/16 at 15: 00 Dextrose (D50w Syringe) 25 ml Q15M PRN IV DECREASED GLUCOSE; Start 07/03/16 at 15:00 Dextrose (D50w Syringe) 50 ml Q15M PRN IV DECREASED GLUCOSE; Start 07/03/16 at 15:00 Glucagon (Glucagen) 1 mg Q15M PRN IM DECREASED GLUCOSE; Start 07/03/16 at 15:00 Glucose (Glutose) 15 gm Q15M PRN BUCCAL DECREASED GLUCOSE; Start 07/03/16 at 15 :00 Citric Acid/ Sodium Citrate (Bicitra) 30 ml BID PO Last administered on 08:07; Admin Dose 30 ML; Start 07/04/16 at 21:00 Heparin Sodium (Porcine) (Heparin (5000 Units/0.5 ml)) 5,000 unit BID SC Last administered on 07/26/16 08:06; Admin Dose 5,000 UNIT; Start 07/05/16 at 21:00 Pantoprazole (Protonix Tab) 40 mg DAILY@06 PO Last administered on 07/26/16 05 :15; Admin Dose 40 MG; Start 07/07/16 at 06:00 Diagnostic Test (Pha) (Accucheck) 1 ea 02 XX Last administered on 07/17/16 02: 56; Admin Dose 1 EA; Start 07/08/16 at 02:00 Alprazolam (Xanax) 0.25 mg BID PO Last administered on 07/26/16 08:07; Admin Dose 0.25 MG; Start 07/07/16 at 11:30 Al Hydrox/Mg Hydrox/Simethicone (Mag-Al Plus) 30 ml Q6H PRN PO GASTROINTESTINAL UPSET Last administered on 07/07/16 11:35; Admin Dose 30 ML; Start 07/07/16 at 11:30 Carvedilol (Coreg) 25 mg BID PO Last administered on 07/26/16 08:08; Admin Dose 25 MG; Start 07/19/16 at 09:00 HELENA ARSHAD MD Jul 26, 2016 10:32
[2016-07-26] MEDS: MEGESTROL (40 MG/ML) 10ML CUP PO SCH (11:05)
[2016-07-26 11:30] VITALS: BP 144/63; PULSE 78
--- NOTE | 2016-07-26 17:08 | CONS ---
Date/Time of Note Date/Time of Note DATE: 07/26/16 TIME: 17:04 Assessment/Plan Assessment/Plan Chief Complaint/Hosp Course IMPRESSION: 1. Patient has [id number] kidney disease, acute renal failure due to prerenal azotemia.BETTER 2. 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 Hyperkalemia better 4. Anemia of possibly chronic kidney disease. ang post op anemia 5. Metabolic acidosis. better 6. The patient also is status post fall with right hip fracture. PER ORTHO S/P SURGERY 7. Coronary artery disease with coronary artery bypass graft. 8. History of hysterectomy. 9. History of breast cancer, surgery on treatment. 10. Underlying chronic tubular interstitial nephritis. 11. proteinuria. 12 UTI 13 S/P RT HIP HEMIARTHROPLASTY 14 influenza a plan ck bmp avoid nephrotoxic drugs BMP renal stable DOING PT Problems: Consultation Date/Type/Reason Admit Date/Time Jul 03, 2016 at 11:46 Initial Consult Date 07/03/16 Type of Consultation: RENAL Referring Provider: JUNI NUNEZ 24 HR Interval Summary Constitutional: no complaints Exam/Review of Systems Vital Signs Vitals Vital Signs Date Time Temp Pulse Resp B/P Pulse Ox O2 Delivery O2 Flow Rate FiO2 07/26/16 15:33 98.7 07/26/16 11:30 78 144/63 07/26/16 08:46 20 96 Intake and Output 07/25/16 07/25/16 07/26/16 15:00 23:00 07:00 Intake Total 680 ml 220 ml Balance 680 ml 220 ml Exam Neck: supple Respiratory: clear to auscultation Cardiovascular: regular rate and rhythm Gastrointestinal: soft Extremities: normal pulses Results Result Diagram: 07/25/16 0544 07/25/16 0544 Results 24 hrs Laboratory Tests Test 07/25/16 19:37 07/26/16 07:36 07/26/16 11:08 Bedside Glucose 137 119 144 Medications Medications Current Medications Ondansetron HCl (Zofran Inj) 4 mg Q6H PRN IV NAUSEA AND/OR VOMITING Last administered on 07/06/16 11:46; Admin Dose 4 MG; Start 07/03/16 at 12:00 Acetaminophen (Tylenol Tab) 650 mg Q6H PRN PO PAIN LEVEL 1-3 OR FEVER Last administered on 07/26/16 11:05; Admin Dose 650 MG; Start 07/03/16 at 12:00 Acetaminophen (Tylenol Supp) 650 mg Q6H PRN IN PAIN LEVEL 1-3 OR FEVER; Start 07/03/16 at 12:00 Docusate Sodium (Colace) 100 mg Q12H PRN PO CONSTIPATION Last administered on 13:51; Admin Dose 100 MG; Start 07/03/16 at 12:00 Magnesium Hydroxide (Milk Of Mag) 30 ml DAILY PRN PO CONSTIPATION Last administered on 07/10/16 12:59; Admin Dose 30 ML; Start 07/03/16 at 12:00 Bisacodyl (Dulcolax Supp) 10 mg DAILY PRN IN CONSTIPATION Last administered on 07/11/16 14:30; Admin Dose 10 MG; Start 07/03/16 at 12:00 Aripiprazole (Abilify) 2 mg DAILY PO Last administered on 07/26/16 08:07; Admin Dose 2 MG; Start 07/04/16 at 09:00; Status Future Hold Aspirin (Halfprin) 81 mg DAILY PO Last administered on 07/26/16 08:07; Admin Dose 81 MG; Start 07/04/16 at 09:00 Clopidogrel Bisulfate (plaVIX) 75 mg DAILY PO Last administered on 07/26/16 08 :07; Admin Dose 75 MG; Start 07/04/16 at 09:00 Fluticasone Propionate (Flonase 0.05% Nasal) 1 spray BID NASAL Last administered on 07/26/16 08:07; Admin Dose 1 SPRAY; Start 07/03/16 at 21:00 Loratadine (Claritin) 10 mg DAILY PO Last administered on 07/26/16 08:07; Admin Dose 10 MG; Start 07/04/16 at 09:00 Meclizine HCl (Antivert) 25 mg Q12H PRN PO DIZZINESS; Start 07/03/16 at 14:30 Sertraline HCl (Zoloft) 50 mg DAILY PO Last administered on 07/26/16 08:07; Admin Dose 50 MG; Start 07/04/16 at 09:00; Status Future Hold Atorvastatin Calcium (Lipitor) 10 mg QHS PO Last administered on 07/25/16 20: 14; Admin Dose 10 MG; Start 07/03/16 at 21:00 Miscellaneous Information 1 ea NOTE XX ; Start 07/03/16 at 15:00 Glucose (Glutose) 15 gm Q15M PRN PO DECREASED GLUCOSE; Start 07/03/16 at 15:00 Glucose (Glutose) 22.5 gm Q15M PRN PO DECREASED GLUCOSE; Start 07/03/16 at 15: 00 Dextrose (D50w Syringe) 25 ml Q15M PRN IV DECREASED GLUCOSE; Start 07/03/16 at 15:00 Dextrose (D50w Syringe) 50 ml Q15M PRN IV DECREASED GLUCOSE; Start 07/03/16 at 15:00 Glucagon (Glucagen) 1 mg Q15M PRN IM DECREASED GLUCOSE; Start 07/03/16 at 15:00 Glucose (Glutose) 15 gm Q15M PRN BUCCAL DECREASED GLUCOSE; Start 07/03/16 at 15 :00 Citric Acid/ Sodium Citrate (Bicitra) 30 ml BID PO Last administered on 08:07; Admin Dose 30 ML; Start 07/04/16 at 21:00 Heparin Sodium (Porcine) (Heparin (5000 Units/0.5 ml)) 5,000 unit BID SC Last administered on 07/26/16 08:06; Admin Dose 5,000 UNIT; Start 07/05/16 at 21:00 Pantoprazole (Protonix Tab) 40 mg DAILY@06 PO Last administered on 07/26/16 05 :15; Admin Dose 40 MG; Start 07/07/16 at 06:00 Diagnostic Test (Pha) (Accucheck) 1 ea 02 XX Last administered on 07/17/16 02: 56; Admin Dose 1 EA; Start 07/08/16 at 02:00 Al Hydrox/Mg Hydrox/Simethicone (Mag-Al Plus) 30 ml Q6H PRN PO GASTROINTESTINAL UPSET Last administered on 07/07/16 11:35; Admin Dose 30 ML; Start 07/07/16 at 11:30 Carvedilol (Coreg) 25 mg BID PO Last administered on 07/26/16 08:08; Admin Dose 25 MG; Start 07/19/16 at 09:00 Hydralazine HCl (Apresoline) 10 mg Q8 PO Last administered on 07/26/16 11:30; Admin Dose 10 MG; Start 07/26/16 at 11:00 Alprazolam (Xanax) 0.25 mg QHS PRN PO anxiety; Start 07/26/16 at 21:00 Carbidopa/Levodopa (Sinemet (25/ 100)) 1 tab DAILY PO ; Start 07/26/16 at 13:30 PERRY ALVARES MD Jul 26, 2016 17:07
[2016-07-26] MEDS ORDERED: CARBIDOPA/LEVODOPA (25/100) TAB PO SCH (21:00)
[2016-07-26] MEDS ORDERED: ALPRAZOLAM 0.25 MG TAB PO SCH (21:00)
[2016-07-26] MEDS ORDERED: ALPRAZOLAM 0.25 MG TAB PO PRN (21:00)
[2016-07-26] MEDS: ATORVASTATIN 10 MG TAB PO SCH (21:11)
[2016-07-26 21:13] VITALS: BP 133/59; RESP 19
[2016-07-27] MEDS: ACCUCHECK XX SCH (02:00)
[2016-07-27 05:58] LABS: ADD SCAN DIFF NO
[2016-07-27] MEDS: PANTOPRAZOLE (EC) 40 MG TAB PO SCH (06:04)
[2016-07-27] MEDS: ACETAMINOPHEN 325 MG TAB PO PRN (06:04)
[2016-07-27 06:13] LABS: BASOPHILS % 0.3 % (0.0-2.0); EOSINOPHILS # 0.2 10^3/ul (0.0-0.5); HEMATOCRIT 27.1 % (37.0-47.0); HEMOGLOBIN 8.6 g/dl (12.0-16.0); LYMPHOCYTES # 1.3 10^3/ul (0.8-2.9); MEAN CORPUSCULAR HEMOGLOBIN 29.5 pg (29.0-33.0); MEAN CORPUSCULAR HGB CONC 31.7 g/dl (32.0-37.0); MEAN CORPUSCULAR VOLUME 92.8 fl (82.0-101.0); MEAN PLATELET VOLUME 10.9 fl (7.4-10.4); MONOCYTE # 0.5 10^3/ul (0.3-0.9); MONOCYTES % 7.2 % (0.0-11.0); NEUTROPHIL # 5.2 10^3/ul (1.6-7.5); NEUTROPHILS % 70.9 % (39.0-77.0); PLATELET COUNT 214 10^3/UL (140-415); RED BLOOD COUNT 2.92 10^6/ul (4.20-5.40); RED CELL DISTRIBUTION WIDTH 16.8 % (11.5-14.5); WHITE BLOOD COUNT 7.4 10^3/ul (4.8-10.8)
[2016-07-27 06:25] LABS: ALBUMIN 3.3 g/dl (3.3-4.9); POTASSIUM 4.9 mmol/L (3.5-5.1)
[2016-07-27 06:27] LABS: CREATININE 2.01 mg/dl (0.44-1.00)
[2016-07-27 06:28] LABS: CALCIUM 8.4 mg/dl (8.4-10.2); MAGNESIUM 1.6 mg/dl (1.7-2.5); PHOSPHORUS 3.5 mg/dl (2.5-4.9)
[2016-07-27 07:10] VITALS: BP 122/58; RESP 16
[2016-07-27] MEDS: INSULIN ASPART [NOVOLOG] 3 ML PEN SC SCH ×4 (07:56→21:00)
[2016-07-27] MEDS: CLOPIDOGREL 75 MG TAB PO SCH (09:17)
[2016-07-27] MEDS: LORATADINE 10 MG TAB PO SCH (09:18)
[2016-07-27] MEDS: ASPIRIN (EC) 81 MG TAB PO SCH (09:18)
[2016-07-27] MEDS: CARBIDOPA/LEVODOPA (25/100) TAB PO SCH (09:18)
[2016-07-27] MEDS: CITRIC ACID/NA CITRATE 30 ML CUP PO SCH ×2 (09:19→21:22)
[2016-07-27] MEDS: FLUTICASONE 0.05% 16 GM NAS SPRAY NASAL SCH ×2 (09:19→21:23)
[2016-07-27] MEDS: HEPARIN 5,000 UNIT/0.5 ML SYG SC SCH ×2 (09:22→21:31)
[2016-07-27] MEDS: MEGESTROL (40 MG/ML) 10ML CUP PO SCH (12:11)
--- NOTE | 2016-07-27 16:03 | PN ---
Date/Time of Note Date/Time of Note DATE: 07/27/16 TIME: 16:01 Assessment/Plan VTE Prophylaxis VTE Prophylaxis Intervention: heparin Lines/Catheters IV C[facility] Type [facility]from [facility] Urinary Cath still in place: No Assessment/Plan Chief Complaint/Hosp Course X-ray indicates nondisplaced right subcapital femoral fracture that she had hemiarthroplasty on 07/12/2016. Patient haa anemia after the surgery with H/H 7/ 21.9 on 07/14/2016 and patient had hypotension that coreg/lisinipril were stopped. Patient got two units PRBCS transfusion, H/H improves to 10.4/30.9 on . I will resume coreg, adjust dosage and monitor blood pressure. Patient has chronic kidney disease. Last BUN/Cr are 38/2.34 on 07/17/2016. Metformin is stopped for renal failure. Januvia dosage will be 25 mg daily. Problems: Assessment/Plan 1. Right hip fracture s/p fall at home . s/p hemiarthroplasty of the right hip , follow up with ortho Dr. Byrd 2. Severe anemia, acute on chronic, blood loss, 2 units PRBC 07/14/2016, follow up with PCP 3. 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 Patient does follow-up with her physician Dr. Valenzuela as outpatient for this issue. She is status post radiation therapy reportedly 3 weeks ago. Patient follow-up with outpatient oncologist 4. Renal failure, likely CKD, follow up with PCP 5. History of CAD with previous CABG. stable 6. Essential hypertension. restart coreg 7. History of dyslipidemia. Follow-up on fasting lipid panel. 8. Reported history of diabetes. on Januvia, and ISS 9.. Influenza A positive. treated 10. E.Coli UTI, treated 11. DVT prophylaxis: heparin 12. Awaiting for placement-SNF, talked with case work aide 13. Hypomagnesemia, Mg supplement Subjective 24 Hr Interval Summary Free Text/Dictation stronger, walks two steps Exam/Review of Systems Vital Signs Vitals Vital Signs Date Time Temp Pulse Resp B/P Pulse Ox O2 Delivery O2 Flow Rate FiO2 07/27/16 07:10 98.6 81 16 122/58 96 Intake and Output 07/26/16 07/26/16 07/27/16 15:00 23:00 07:00 Intake Total 1200 ml 600 ml Balance 1200 ml 600 ml Exam Constitutional: alert, oriented, well developed Psych: nl mood/affect, no complaints Head: atraumatic, normocephalic Eyes: EOMI, PERRL, nl conjunctiva, nl lids ENMT: nl external ears & nose, nl lips & teeth, nl nasal mucosa & septum Neck: non-tender, supple Respiratory: clear to auscultation, normal air movement, No congested cough, No crackles/rales, No diminished breath sounds, No intercostal retraction, No labored breathing, No other, No respirations, No tactile fremitus, No wheezing Cardiovascular: nl pulses, regular rate and rhythm, No S3, No S4, No bruits, No diastolic murmur, No edema, No gallop, No irregular rhythm, No jugular venous distention (JVD), No murmurs/extra sounds, No other, No rub, No systolic murmur Gastrointestinal: nl liver, spleen, non-tender, soft, No ascites, No bowel sounds, No distended, No firm, No hepatomegaly, No mass , No other, No rebound or guarding, No splenomegaly, No surgical scars, No tender Musculoskeletal: nl extremities to inspection Extremities: normal pulses, No calf tenderness, No clubbing, No cyanosis, No edema, No other, No palpable cord, No pitting pedal edema, No tenderness Neurological: SHEEP CLIPPER II-XII intact, nl mental status, nl speech, nl strength Skin: nl turgor Lymph: nl lymph nodes Results Result Diagram: 07/27/160 07/27/16 0440 Results 24 hrs Laboratory Tests Test 07/26/16 17:15 07/26/16 21:09 07/27/16 04:40 07/27/16 07:44 Bedside Glucose 158 132 123 Albumin 3.3 Anion Gap 21 H Basophils # 0.0 Basophils % 0.3 Blood Urea Nitrogen 45 #H Calcium Level 8.4 Carbon Dioxide Level 20 L Chloride Level 107 Creatinine 2.01 H Eosinophils # 0.2 Eosinophils % 3.0 Glucose Level 119 Hematocrit 27.1 L Hemoglobin 8.6 L Lymphocytes # 1.3 Lymphocytes % 17.0 Magnesium Level 1.6 L Mean Corpuscular Hemoglobin 29.5 Mean Corpuscular Hemoglobin Concent 31.7 L Mean Corpuscular Volume 92.8 Mean Platelet Volume 10.9 H Monocytes # 0.5 Monocytes % 7.2 Neutrophils # 5.2 Neutrophils % 70.9 Nucleated Red Blood Cells # 0.0 Nucleated Red Blood Cells % 0.0 Phosphorus Level 3.5 Platelet Count 214 Potassium Level 4.9 Red Blood Count 2.92 L Red Cell Distribution Width 16.8 H Sodium Level 143 White Blood Count 7.4 Test 07/27/16 11:30 Bedside Glucose 185 Medications Medications Current Medications Ondansetron HCl (Zofran Inj) 4 mg Q6H PRN IV NAUSEA AND/OR VOMITING Last administered on 07/06/16 11:46; Admin Dose 4 MG; Start 07/03/16 at 12:00 Acetaminophen (Tylenol Tab) 650 mg Q6H PRN PO PAIN LEVEL 1-3 OR FEVER Last administered on 07/27/16 06:04; Admin Dose 650 MG; Start 07/03/16 at 12:00 Acetaminophen (Tylenol Supp) 650 mg Q6H PRN [place] PAIN LEVEL 1-3 OR FEVER; Start 07/03/16 at 12:00 Docusate Sodium (Colace) 100 mg Q12H PRN PO CONSTIPATION Last administered on 13:51; Admin Dose 100 MG; Start 07/03/16 at 12:00 Magnesium Hydroxide (Milk Of Mag) 30 ml DAILY PRN PO CONSTIPATION Last administered on 07/10/16 12:59; Admin Dose 30 ML; Start 07/03/16 at 12:00 Bisacodyl (Dulcolax Supp) 10 mg DAILY PRN [place] CONSTIPATION Last administered on 07/11/16 14:30; Admin Dose 10 MG; Start 07/03/16 at 12:00 Aripiprazole (Abilify) 2 mg DAILY PO Last administered on 07/26/16 08:07; Admin Dose 2 MG; Start 07/04/16 at 09:00; Status Future Hold Aspirin (Halfprin) 81 mg DAILY PO Last administered on 07/27/16 09:18; Admin Dose 81 MG; Start 07/04/16 at 09:00 Clopidogrel Bisulfate (plaVIX) 75 mg DAILY PO Last administered on 07/27/16 09 :17; Admin Dose 75 MG; Start 07/04/16 at 09:00 Fluticasone Propionate (Flonase 0.05% Nasal) 1 spray BID NASAL Last administered on 07/27/16 09:19; Admin Dose 1 SPRAY; Start 07/03/16 at 21:00 Loratadine (Claritin) 10 mg DAILY PO Last administered on 07/27/16 09:18; Admin Dose 10 MG; Start 07/04/16 at 09:00 Meclizine HCl (Antivert) 25 mg Q12H PRN PO DIZZINESS; Start 07/03/16 at 14:30 Sertraline HCl (Zoloft) 50 mg DAILY PO Last administered on 07/26/16 08:07; Admin Dose 50 MG; Start 07/04/16 at 09:00; Status Future Hold Atorvastatin Calcium (Lipitor) 10 mg QHS PO Last administered on 07/26/16 21: 11; Admin Dose 10 MG; Start 07/03/16 at 21:00 Miscellaneous Information 1 ea NOTE XX ; Start 07/03/16 at 15:00 Glucose (Glutose) 15 gm Q15M PRN PO DECREASED GLUCOSE; Start 07/03/16 at 15:00 Glucose (Glutose) 22.5 gm Q15M PRN PO DECREASED GLUCOSE; Start 07/03/16 at 15: 00 Dextrose (D50w Syringe) 25 ml Q15M PRN IV DECREASED GLUCOSE; Start 07/03/16 at 15:00 Dextrose (D50w Syringe) 50 ml Q15M PRN IV DECREASED GLUCOSE; Start 07/03/16 at 15:00 Glucagon (Glucagen) 1 mg Q15M PRN IM DECREASED GLUCOSE; Start 07/03/16 at 15:00 Glucose (Glutose) 15 gm Q15M PRN BUCCAL DECREASED GLUCOSE; Start 07/03/16 at 15 :00 Citric Acid/ Sodium Citrate (Bicitra) 30 ml BID PO Last administered on 09:19; Admin Dose 30 ML; Start 07/04/16 at 21:00 Heparin Sodium (Porcine) (Heparin (5000 Units/0.5 ml)) 5,000 unit BID SC Last administered on 07/27/16 09:22; Admin Dose 5,000 UNIT; Start 07/05/16 at 21:00 Pantoprazole (Protonix Tab) 40 mg DAILY@06 PO Last administered on 07/27/16 06 :04; Admin Dose 40 MG; Start 07/07/16 at 06:00 Diagnostic Test (Pha) (Accucheck) 1 ea 02 XX Last administered on 07/17/16 02: 56; Admin Dose 1 EA; Start 07/08/16 at 02:00 Al Hydrox/Mg Hydrox/Simethicone (Mag-Al Plus) 30 ml Q6H PRN PO GASTROINTESTINAL UPSET Last administered on 07/07/16 11:35; Admin Dose 30 ML; Start 07/07/16 at 11:30 Carvedilol (Coreg) 25 mg BID PO Last administered on 07/27/16 09:18; Admin Dose 25 MG; Start 07/19/16 at 09:00 Hydralazine HCl (Apresoline) 10 mg Q8 PO Last administered on 07/27/16 15:49; Admin Dose 10 MG; Start 07/26/16 at 11:00 Alprazolam (Xanax) 0.25 mg QHS PRN PO anxiety; Start 07/26/16 at 21:00 Carbidopa/ Levodopa 1 tab 1 tab DAILY PO Last administered on 07/27/16 09:18; Admin Dose 1 TAB; Start 07/26/16 at 13:30 Magnesium Sulfate (Magnesium Sulfate 2 Gm/50 ml) 50 ml @ 25 mls/hr ONCE ONCE IVPB ; Start 07/27/16 at 16:30; Stop 07/27/16 at 18:29 FERNANDO ALFARO MD Jul 27, 2016 16:03
[2016-07-27] MEDS ORDERED: MAGNESIUM SULFATE 2 GM/50 ML 50 ML IVPB ONE (16:30)
[2016-07-27 20:04] VITALS: BP 130/60; RESP 18
[2016-07-27] MEDS: ATORVASTATIN 10 MG TAB PO SCH (21:23)
--- NOTE | 2016-07-27 23:24 | CONS ---
Date/Time of Note Date/Time of Note DATE: 07/27/16 TIME: 23:23 Assessment/Plan Assessment/Plan Chief Complaint/Hosp Course IMPRESSION: 1. Patient has [id number] kidney disease, acute renal failure due to prerenal azotemia.BETTER 2. 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 Hyperkalemia better 4. Anemia of possibly chronic kidney disease. ang post op anemia 5. Metabolic acidosis. better 6. The patient also is status post fall with right hip fracture. PER ORTHO S/P SURGERY 7. Coronary artery disease with coronary artery bypass graft. 8. History of hysterectomy. 9. History of breast cancer, surgery on treatment. 10. Underlying chronic tubular interstitial nephritis. 11. proteinuria. 12 UTI 13 S/P RT HIP HEMIARTHROPLASTY 14 influenza a plan ck bmp avoid nephrotoxic drugs BMP renal stable DOING PT Problems: Consultation Date/Type/Reason Admit Date/Time Jul 03, 2016 at 11:46 Initial Consult Date 07/03/16 Type of Consultation: RENAL Referring Provider: JUNI NUNEZ 24 HR Interval Summary Constitutional: no complaints Exam/Review of Systems Vital Signs Vitals Vital Signs Date Time Temp Pulse Resp B/P Pulse Ox O2 Delivery O2 Flow Rate FiO2 07/27/16 20:04 98.2 82 18 130/60 96 Intake and Output 07/26/16 07/26/16 07/27/16 15:00 23:00 07:00 Intake Total 1200 ml 600 ml Balance 1200 ml 600 ml Exam Respiratory: diminished breath sounds Cardiovascular: regular rate and rhythm Gastrointestinal: soft Musculoskeletal: nl extremities to inspection Extremities: normal pulses Results Result Diagram: 07/27/16 0440 07/27/16 0440 Results 24 hrs Laboratory Tests Test 07/27/16 04:40 07/27/16 07:44 07/27/16 11:30 07/27/16 17:19 Albumin 3.3 Anion Gap 21 H Basophils # 0.0 Basophils % 0.3 Blood Urea Nitrogen 45 #H Calcium Level 8.4 Carbon Dioxide Level 20 L Chloride Level 107 Creatinine 2.01 H Eosinophils # 0.2 Eosinophils % 3.0 Glucose Level 119 Hematocrit 27.1 L Hemoglobin 8.6 L Lymphocytes # 1.3 Lymphocytes % 17.0 Magnesium Level 1.6 L Mean Corpuscular Hemoglobin 29.5 Mean Corpuscular Hemoglobin Concent 31.7 L Mean Corpuscular Volume 92.8 Mean Platelet Volume 10.9 H Monocytes # 0.5 Monocytes % 7.2 Neutrophils # 5.2 Neutrophils % 70.9 Nucleated Red Blood Cells # 0.0 Nucleated Red Blood Cells % 0.0 Phosphorus Level 3.5 Platelet Count 214 Potassium Level 4.9 Red Blood Count 2.92 L Red Cell Distribution Width 16.8 H Sodium Level 143 White Blood Count 7.4 Bedside Glucose 123 185 152 Test 07/27/16 20:54 Bedside Glucose 142 Medications Medications Current Medications Ondansetron HCl (Zofran Inj) 4 mg Q6H PRN IV NAUSEA AND/OR VOMITING Last administered on 07/06/16 11:46; Admin Dose 4 MG; Start 07/03/16 at 12:00 Acetaminophen (Tylenol Tab) 650 mg Q6H PRN PO PAIN LEVEL 1-3 OR FEVER Last administered on 07/27/16 06:04; Admin Dose 650 MG; Start 07/03/16 at 12:00 Acetaminophen (Tylenol Supp) 650 mg Q6H PRN [place] PAIN LEVEL 1-3 OR FEVER; Start 07/03/16 at 12:00 Docusate Sodium (Colace) 100 mg Q12H PRN PO CONSTIPATION Last administered on 13:51; Admin Dose 100 MG; Start 07/03/16 at 12:00 Magnesium Hydroxide (Milk Of Mag) 30 ml DAILY PRN PO CONSTIPATION Last administered on 07/10/16 12:59; Admin Dose 30 ML; Start 07/03/16 at 12:00 Bisacodyl (Dulcolax Supp) 10 mg DAILY PRN [place] CONSTIPATION Last administered on 07/11/16 14:30; Admin Dose 10 MG; Start 07/03/16 at 12:00 Aripiprazole (Abilify) 2 mg DAILY PO Last administered on 07/26/16 08:07; Admin Dose 2 MG; Start 07/04/16 at 09:00; Status Future Hold Aspirin (Halfprin) 81 mg DAILY PO Last administered on 07/27/16 09:18; Admin Dose 81 MG; Start 07/04/16 at 09:00 Clopidogrel Bisulfate (plaVIX) 75 mg DAILY PO Last administered on 07/27/16 09 :17; Admin Dose 75 MG; Start 07/04/16 at 09:00 Fluticasone Propionate (Flonase 0.05% Nasal) 1 spray BID NASAL Last administered on 07/27/16 21:23; Admin Dose 1 SPRAY; Start 07/03/16 at 21:00 Loratadine (Claritin) 10 mg DAILY PO Last administered on 07/27/16 09:18; Admin Dose 10 MG; Start 07/04/16 at 09:00 Meclizine HCl (Antivert) 25 mg Q12H PRN PO DIZZINESS; Start 07/03/16 at 14:30 Sertraline HCl (Zoloft) 50 mg DAILY PO Last administered on 07/26/16 08:07; Admin Dose 50 MG; Start 07/04/16 at 09:00; Status Future Hold Atorvastatin Calcium (Lipitor) 10 mg QHS PO Last administered on 07/27/16 21: 23; Admin Dose 10 MG; Start 07/03/16 at 21:00 Miscellaneous Information 1 ea NOTE XX ; Start 07/03/16 at 15:00 Glucose (Glutose) 15 gm Q15M PRN PO DECREASED GLUCOSE; Start 07/03/16 at 15:00 Glucose (Glutose) 22.5 gm Q15M PRN PO DECREASED GLUCOSE; Start 07/03/16 at 15: 00 Dextrose (D50w Syringe) 25 ml Q15M PRN IV DECREASED GLUCOSE; Start 07/03/16 at 15:00 Dextrose (D50w Syringe) 50 ml Q15M PRN IV DECREASED GLUCOSE; Start 07/03/16 at 15:00 Glucagon (Glucagen) 1 mg Q15M PRN IM DECREASED GLUCOSE; Start 07/03/16 at 15:00 Glucose (Glutose) 15 gm Q15M PRN BUCCAL DECREASED GLUCOSE; Start 07/03/16 at 15 :00 Citric Acid/ Sodium Citrate (Bicitra) 30 ml BID PO Last administered on 21:22; Admin Dose 30 ML; Start 07/04/16 at 21:00 Heparin Sodium (Porcine) (Heparin (5000 Units/0.5 ml)) 5,000 unit BID SC Last administered on 07/27/16 21:31; Admin Dose 5,000 UNIT; Start 07/05/16 at 21:00 Pantoprazole (Protonix Tab) 40 mg DAILY@06 PO Last administered on 07/27/16 06 :04; Admin Dose 40 MG; Start 07/07/16 at 06:00 Diagnostic Test (Pha) (Accucheck) 1 ea 02 XX Last administered on 07/17/16 02: 56; Admin Dose 1 EA; Start 07/08/16 at 02:00 Al Hydrox/Mg Hydrox/Simethicone (Mag-Al Plus) 30 ml Q6H PRN PO GASTROINTESTINAL UPSET Last administered on 07/07/16 11:35; Admin Dose 30 ML; Start 07/07/16 at 11:30 Carvedilol (Coreg) 25 mg BID PO Last administered on 07/27/16 21:32; Admin Dose 25 MG; Start 07/19/16 at 09:00 Hydralazine HCl (Apresoline) 10 mg Q8 PO Last administered on 07/27/16 15:49; Admin Dose 10 MG; Start 07/26/16 at 11:00 Alprazolam (Xanax) 0.25 mg QHS PRN PO anxiety; Start 07/26/16 at 21:00 Carbidopa/Levodopa (Sinemet (25/ 100)) 1 tab DAILY PO Last administered on 07/27 09:18; Admin Dose 1 TAB; Start 07/26/16 at 13:30 PERRY ALVARES MD Jul 27, 2016 23:24
[2016-07-28] MEDS: ACCUCHECK XX SCH (02:00)
[2016-07-28] MEDS: PANTOPRAZOLE (EC) 40 MG TAB PO SCH (06:13)
[2016-07-28 06:49] LABS: ADD SCAN DIFF NO
[2016-07-28 06:55] LABS: BASOPHILS % 0.5 % (0.0-2.0); EOSINOPHILS # 0.2 10^3/ul (0.0-0.5); EOSINOPHILS % 3.4 % (0.0-7.0); HEMATOCRIT 29.7 % (37.0-47.0); HEMOGLOBIN 9.3 g/dl (12.0-16.0); LYMPHOCYTES # 1.1 10^3/ul (0.8-2.9); LYMPHOCYTES % 17.8 % (15.0-51.0); MEAN CORPUSCULAR HEMOGLOBIN 29.3 pg (29.0-33.0); MEAN CORPUSCULAR HGB CONC 31.3 g/dl (32.0-37.0); MEAN CORPUSCULAR VOLUME 93.7 fl (82.0-101.0); MEAN PLATELET VOLUME 11.3 fl (7.4-10.4); MONOCYTE # 0.5 10^3/ul (0.3-0.9); MONOCYTES % 8.7 % (0.0-11.0); NEUTROPHIL # 4.2 10^3/ul (1.6-7.5); NEUTROPHILS % 67.8 % (39.0-77.0); PLATELET COUNT 214 10^3/UL (140-415); RED BLOOD COUNT 3.17 10^6/ul (4.20-5.40); RED CELL DISTRIBUTION WIDTH 16.8 % (11.5-14.5); WHITE BLOOD COUNT 6.1 10^3/ul (4.8-10.8)
[2016-07-28 07:10] LABS: ALBUMIN 3.4 g/dl (3.3-4.9); POTASSIUM 5.1 mmol/L (3.5-5.1)
[2016-07-28 07:12] LABS: CREATININE 2.07 mg/dl (0.44-1.00)
[2016-07-28 07:13] LABS: CALCIUM 8.8 mg/dl (8.4-10.2); PHOSPHORUS 3.5 mg/dl (2.5-4.9)
[2016-07-28] MEDS: INSULIN ASPART [NOVOLOG] 3 ML PEN SC SCH ×4 (07:56→20:17)
[2016-07-28 08:11] VITALS: BP 129/58; RESP 20
[2016-07-28] MEDS: LORATADINE 10 MG TAB PO SCH (08:44)
[2016-07-28] MEDS: FLUTICASONE 0.05% 16 GM NAS SPRAY NASAL SCH ×2 (08:44→20:17)
[2016-07-28] MEDS: CLOPIDOGREL 75 MG TAB PO SCH (08:44)
[2016-07-28] MEDS: CITRIC ACID/NA CITRATE 30 ML CUP PO SCH ×2 (08:44→20:17)
[2016-07-28] MEDS: ASPIRIN (EC) 81 MG TAB PO SCH (08:45)
[2016-07-28] MEDS: HEPARIN 5,000 UNIT/0.5 ML SYG SC SCH ×2 (08:45→20:15)
[2016-07-28] MEDS: CARBIDOPA/LEVODOPA (25/100) TAB PO SCH (08:45)
[2016-07-28] MEDS: MEGESTROL (40 MG/ML) 10ML CUP PO SCH (12:01)
[2016-07-28 13:09] VITALS: BP 118/58; PULSE 81
--- NOTE | 2016-07-28 17:07 | PN ---
Date/Time of Note Date/Time of Note DATE: 07/28/16 TIME: 17:05 Assessment/Plan VTE Prophylaxis VTE Prophylaxis Intervention: heparin Lines/Catheters IV [facility] Type (from [facility]): [facility] Urinary Cath still in place: No Assessment/Plan Chief Complaint/Hosp Course 1. Right hip fracture s/p fall at home . s/p hemiarthroplasty of the right hip , follow up with ortho Dr. Byrd 2. Severe anemia, acute on chronic, blood loss, 2 units PRBC 07/14/2016, follow up with PCP 3. 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 Patient does follow-up with her physician Dr. Valenzuela as outpatient for this issue. She is status post radiation therapy reportedly 3 weeks ago. Patient follow-up with outpatient oncologist 4. Renal failure, likely CKD, follow up with PCP 5. History of CAD with previous CABG. stable 6. Essential hypertension. restart coreg 7. History of dyslipidemia. Follow-up on fasting lipid panel. 8. Reported history of diabetes. on Januvia, and ISS 9.. Influenza A positive. treated 10. E.Coli UTI, treated 11. DVT prophylaxis: heparin 12. Awaiting for placement-SNF, talked with caseworker 13. Hypomagnesemia, Mg supplement Problems: Subjective 24 Hr Interval Summary Constitutional: no complaints Exam/Review of Systems Vital Signs Vitals Vital Signs Date Time Temp Pulse Resp B/P Pulse Ox O2 Delivery O2 Flow Rate FiO2 07/28/16 13:09 81 118/58 07/28/16 08:11 98.8 20 95 Intake and Output 07/27/16 07/27/16 07/28/16 15:00 23:00 07:00 Intake Total 1090 ml 350 ml Balance 1090 ml 350 ml Exam Constitutional: alert Respiratory: clear to auscultation Cardiovascular: regular rate and rhythm Gastrointestinal: soft, No distended Musculoskeletal: nl extremities to inspection Results Result Diagram: 07/28/16 0545 07/28/16 0545 Results 24 hrs Laboratory Tests Test 07/27/16 17:19 07/27/16 20:54 07/28/16 05:45 07/28/16 07:55 Bedside Glucose 152 142 125 Albumin 3.4 Anion Gap 20 H Basophils # 0.0 Basophils % 0.5 Blood Urea Nitrogen 44 H Calcium Level 8.8 Carbon Dioxide Level 21 Chloride Level 107 Creatinine 2.07 H Eosinophils # 0.2 Eosinophils % 3.4 Glucose Level 124 Hematocrit 29.7 L Hemoglobin 9.3 L Lymphocytes # 1.1 Lymphocytes % 17.8 Mean Corpuscular Hemoglobin 29.3 Mean Corpuscular Hemoglobin Concent 31.3 L Mean Corpuscular Volume 93.7 Mean Platelet Volume 11.3 H Monocytes # 0.5 Monocytes % 8.7 Neutrophils # 4.2 Neutrophils % 67.8 Nucleated Red Blood Cells # 0.0 Nucleated Red Blood Cells % 0.0 Phosphorus Level 3.5 Platelet Count 214 Potassium Level 5.1 Red Blood Count 3.17 L Red Cell Distribution Width 16.8 H Sodium Level 143 White Blood Count 6.1 Test 07/28/16 11:24 Bedside Glucose 179 Medications Medications Current Medications Ondansetron HCl (Zofran Inj) 4 mg Q6H PRN IV NAUSEA AND/OR VOMITING Last administered on 07/06/16 11:46; Admin Dose 4 MG; Start 07/03/16 at 12:00 Acetaminophen (Tylenol Tab) 650 mg Q6H PRN PO PAIN LEVEL 1-3 OR FEVER Last administered on 07/27/16 06:04; Admin Dose 650 MG; Start 07/03/16 at 12:00 Acetaminophen (Tylenol Supp) 650 mg Q6H PRN [place] PAIN LEVEL 1-3 OR FEVER; Start 07/03/16 at 12:00 Docusate Sodium (Colace) 100 mg Q12H PRN PO CONSTIPATION Last administered on 13:51; Admin Dose 100 MG; Start 07/03/16 at 12:00 Magnesium Hydroxide (Milk Of Mag) 30 ml DAILY PRN PO CONSTIPATION Last administered on 07/10/16 12:59; Admin Dose 30 ML; Start 07/03/16 at 12:00 Bisacodyl (Dulcolax Supp) 10 mg DAILY PRN [place] CONSTIPATION Last administered on 07/11/16 14:30; Admin Dose 10 MG; Start 07/03/16 at 12:00 Aripiprazole (Abilify) 2 mg DAILY PO Last administered on 07/26/16 08:07; Admin Dose 2 MG; Start 07/04/16 at 09:00; Status Future Hold Aspirin (Halfprin) 81 mg DAILY PO Last administered on 07/28/16 08:45; Admin Dose 81 MG; Start 07/04/16 at 09:00 Clopidogrel Bisulfate (plaVIX) 75 mg DAILY PO Last administered on 07/28/16 08 :44; Admin Dose 75 MG; Start 07/04/16 at 09:00 Fluticasone Propionate (Flonase 0.05% Nasal) 1 spray BID NASAL Last administered on 07/28/16 08:44; Admin Dose 1 SPRAY; Start 07/03/16 at 21:00 Loratadine (Claritin) 10 mg DAILY PO Last administered on 07/28/16 08:44; Admin Dose 10 MG; Start 07/04/16 at 09:00 Meclizine HCl (Antivert) 25 mg Q12H PRN PO DIZZINESS; Start 07/03/16 at 14:30 Sertraline HCl (Zoloft) 50 mg DAILY PO Last administered on 07/26/16 08:07; Admin Dose 50 MG; Start 07/04/16 at 09:00; Status Future Hold Atorvastatin Calcium (Lipitor) 10 mg QHS PO Last administered on 07/27/16 21: 23; Admin Dose 10 MG; Start 07/03/16 at 21:00 Miscellaneous Information 1 ea NOTE XX ; Start 07/03/16 at 15:00 Glucose (Glutose) 15 gm Q15M PRN PO DECREASED GLUCOSE; Start 07/03/16 at 15:00 Glucose (Glutose) 22.5 gm Q15M PRN PO DECREASED GLUCOSE; Start 07/03/16 at 15: 00 Dextrose (D50w Syringe) 25 ml Q15M PRN IV DECREASED GLUCOSE; Start 07/03/16 at 15:00 Dextrose (D50w Syringe) 50 ml Q15M PRN IV DECREASED GLUCOSE; Start 07/03/16 at 15:00 Glucagon (Glucagen) 1 mg Q15M PRN IM DECREASED GLUCOSE; Start 07/03/16 at 15:00 Glucose (Glutose) 15 gm Q15M PRN BUCCAL DECREASED GLUCOSE; Start 07/03/16 at 15 :00 Citric Acid/ Sodium Citrate (Bicitra) 30 ml BID PO Last administered on 08:44; Admin Dose 30 ML; Start 07/04/16 at 21:00 Heparin Sodium (Porcine) (Heparin (5000 Units/0.5 ml)) 5,000 unit BID SC Last administered on 07/28/16 08:45; Admin Dose 5,000 UNIT; Start 07/05/16 at 21:00 Pantoprazole (Protonix Tab) 40 mg DAILY@06 PO Last administered on 07/28/16 06 :13; Admin Dose 40 MG; Start 07/07/16 at 06:00 Diagnostic Test (Pha) (Accucheck) 1 ea 02 XX Last administered on 07/17/16 02: 56; Admin Dose 1 EA; Start 07/08/16 at 02:00 Al Hydrox/Mg Hydrox/Simethicone (Mag-Al Plus) 30 ml Q6H PRN PO GASTROINTESTINAL UPSET Last administered on 07/07/16 11:35; Admin Dose 30 ML; Start 07/07/16 at 11:30 Carvedilol (Coreg) 25 mg BID PO Last administered on 07/28/16 08:45; Admin Dose 25 MG; Start 07/19/16 at 09:00 Hydralazine HCl (Apresoline) 10 mg Q8 PO Last administered on 07/28/16 13:09; Admin Dose 10 MG; Start 07/26/16 at 11:00 Alprazolam (Xanax) 0.25 mg QHS PRN PO anxiety; Start 07/26/16 at 21:00 Carbidopa/Levodopa (Sinemet (25/ 100)) 1 tab DAILY PO Last administered on 07/28 08:45; Admin Dose 1 TAB; Start 07/26/16 at 13:30 IDA RODRÍGUEZ Jul 28, 2016 17:07
[2016-07-28 20:05] VITALS: BP 114/54; RESP 19
[2016-07-28] MEDS: ATORVASTATIN 10 MG TAB PO SCH (20:17)
--- NOTE | 2016-07-28 20:20 | CONS ---
Date/Time of Note Date/Time of Note DATE: 07/28/16 TIME: 20:19 Assessment/Plan Assessment/Plan Chief Complaint/Hosp Course IMPRESSION: 1. Patient has [id number] kidney disease, acute renal failure due to prerenal azotemia.BETTER 2. 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 Hyperkalemia better 4. Anemia of possibly chronic kidney disease. ang post op anemia 5. Metabolic acidosis. better 6. The patient also is status post fall with right hip fracture. PER ORTHO S/P SURGERY 7. Coronary artery disease with coronary artery bypass graft. 8. History of hysterectomy. 9. History of breast cancer, surgery on treatment. 10. Underlying chronic tubular interstitial nephritis. 11. proteinuria. 12 UTI 13 S/P RT HIP HEMIARTHROPLASTY 14 influenza a plan avoid nephrotoxic drugs BMP renal stable DOING PT Problems: Consultation Date/Type/Reason Admit Date/Time Jul 03, 2016 at 11:46 Initial Consult Date 07/03/16 Type of Consultation: RENAL Referring Provider: JUNI NUNEZ 24 HR Interval Summary Constitutional: no complaints Exam/Review of Systems Vital Signs Vitals Vital Signs Date Time Temp Pulse Resp B/P Pulse Ox O2 Delivery O2 Flow Rate FiO2 07/28/16 13:09 81 118/58 07/28/16 08:11 98.8 20 95 Intake and Output 07/27/16 07/27/16 07/28/16 15:00 23:00 07:00 Intake Total 1090 ml 350 ml Balance 1090 ml 350 ml Exam Neck: supple Respiratory: clear to auscultation Cardiovascular: regular rate and rhythm Gastrointestinal: soft Results Result Diagram: 07/28/16 0545 07/28/16 0545 Results 24 hrs Laboratory Tests Test 07/27/16 20:54 07/28/16 05:45 07/28/16 07:55 07/28/16 11:24 Bedside Glucose 142 125 179 Albumin 3.4 Anion Gap 20 H Basophils # 0.0 Basophils % 0.5 Blood Urea Nitrogen 44 H Calcium Level 8.8 Carbon Dioxide Level 21 Chloride Level 107 Creatinine 2.07 H Eosinophils # 0.2 Eosinophils % 3.4 Glucose Level 124 Hematocrit 29.7 L Hemoglobin 9.3 L Lymphocytes # 1.1 Lymphocytes % 17.8 Mean Corpuscular Hemoglobin 29.3 Mean Corpuscular Hemoglobin Concent 31.3 L Mean Corpuscular Volume 93.7 Mean Platelet Volume 11.3 H Monocytes # 0.5 Monocytes % 8.7 Neutrophils # 4.2 Neutrophils % 67.8 Nucleated Red Blood Cells # 0.0 Nucleated Red Blood Cells % 0.0 Phosphorus Level 3.5 Platelet Count 214 Potassium Level 5.1 Red Blood Count 3.17 L Red Cell Distribution Width 16.8 H Sodium Level 143 White Blood Count 6.1 Test 07/28/16 17:25 07/28/16 19:55 Bedside Glucose 131 203 Medications Medications Current Medications Ondansetron HCl (Zofran Inj) 4 mg Q6H PRN IV NAUSEA AND/OR VOMITING Last administered on 07/06/16 11:46; Admin Dose 4 MG; Start 07/03/16 at 12:00 Acetaminophen (Tylenol Tab) 650 mg Q6H PRN PO PAIN LEVEL 1-3 OR FEVER Last administered on 07/27/16 06:04; Admin Dose 650 MG; Start 07/03/16 at 12:00 Acetaminophen (Tylenol Supp) 650 mg Q6H PRN [place] PAIN LEVEL 1-3 OR FEVER; Start 07/03/16 at 12:00 Docusate Sodium (Colace) 100 mg Q12H PRN PO CONSTIPATION Last administered on 13:51; Admin Dose 100 MG; Start 07/03/16 at 12:00 Magnesium Hydroxide (Milk Of Mag) 30 ml DAILY PRN PO CONSTIPATION Last administered on 07/10/16 12:59; Admin Dose 30 ML; Start 07/03/16 at 12:00 Bisacodyl (Dulcolax Supp) 10 mg DAILY PRN [place] CONSTIPATION Last administered on 07/11/16 14:30; Admin Dose 10 MG; Start 07/03/16 at 12:00 Aripiprazole (Abilify) 2 mg DAILY PO Last administered on 07/26/16 08:07; Admin Dose 2 MG; Start 07/04/16 at 09:00; Status Future Hold Aspirin (Halfprin) 81 mg DAILY PO Last administered on 07/28/16 08:45; Admin Dose 81 MG; Start 07/04/16 at 09:00 Clopidogrel Bisulfate (plaVIX) 75 mg DAILY PO Last administered on 07/28/16 08 :44; Admin Dose 75 MG; Start 07/04/16 at 09:00 Fluticasone Propionate (Flonase 0.05% Nasal) 1 spray BID NASAL Last administered on 07/28/16 20:17; Admin Dose 1 SPRAY; Start 07/03/16 at 21:00 Loratadine (Claritin) 10 mg DAILY PO Last administered on 07/28/16 08:44; Admin Dose 10 MG; Start 07/04/16 at 09:00 Meclizine HCl (Antivert) 25 mg Q12H PRN PO DIZZINESS; Start 07/03/16 at 14:30 Sertraline HCl (Zoloft) 50 mg DAILY PO Last administered on 07/26/16 08:07; Admin Dose 50 MG; Start 07/04/16 at 09:00; Status Future Hold Atorvastatin Calcium (Lipitor) 10 mg QHS PO Last administered on 07/28/16 20: 17; Admin Dose 10 MG; Start 07/03/16 at 21:00 Miscellaneous Information 1 ea NOTE XX ; Start 07/03/16 at 15:00 Glucose (Glutose) 15 gm Q15M PRN PO DECREASED GLUCOSE; Start 07/03/16 at 15:00 Glucose (Glutose) 22.5 gm Q15M PRN PO DECREASED GLUCOSE; Start 07/03/16 at 15: 00 Dextrose (D50w Syringe) 25 ml Q15M PRN IV DECREASED GLUCOSE; Start 07/03/16 at 15:00 Dextrose (D50w Syringe) 50 ml Q15M PRN IV DECREASED GLUCOSE; Start 07/03/16 at 15:00 Glucagon (Glucagen) 1 mg Q15M PRN IM DECREASED GLUCOSE; Start 07/03/16 at 15:00 Glucose (Glutose) 15 gm Q15M PRN BUCCAL DECREASED GLUCOSE; Start 07/03/16 at 15 :00 Citric Acid/ Sodium Citrate (Bicitra) 30 ml BID PO Last administered on 20:17; Admin Dose 30 ML; Start 07/04/16 at 21:00 Heparin Sodium (Porcine) (Heparin (5000 Units/0.5 ml)) 5,000 unit BID SC Last administered on 07/28/16 20:15; Admin Dose 5,000 UNIT; Start 07/05/16 at 21:00 Pantoprazole (Protonix Tab) 40 mg DAILY@06 PO Last administered on 07/28/16 06 :13; Admin Dose 40 MG; Start 07/07/16 at 06:00 Diagnostic Test (Pha) (Accucheck) 1 ea 02 XX Last administered on 07/17/16 02: 56; Admin Dose 1 EA; Start 07/08/16 at 02:00 Al Hydrox/Mg Hydrox/Simethicone (Mag-Al Plus) 30 ml Q6H PRN PO GASTROINTESTINAL UPSET Last administered on 07/07/16 11:35; Admin Dose 30 ML; Start 07/07/16 at 11:30 Carvedilol (Coreg) 25 mg BID PO Last administered on 07/28/16 20:18; Admin Dose 25 MG; Start 07/19/16 at 09:00 Hydralazine HCl (Apresoline) 10 mg Q8 PO Last administered on 07/28/16 13:09; Admin Dose 10 MG; Start 07/26/16 at 11:00 Alprazolam (Xanax) 0.25 mg QHS PRN PO anxiety; Start 07/26/16 at 21:00 Carbidopa/Levodopa (Sinemet (25/ 100)) 1 tab DAILY PO Last administered on 07/28 08:45; Admin Dose 1 TAB; Start 07/26/16 at 13:30 PERRY ALVARES MD Jul 28, 2016 20:20
[2016-07-29] MEDS: ACCUCHECK XX SCH (02:00)
[2016-07-29 05:01] LABS: ADD SCAN DIFF NO
[2016-07-29 05:18] LABS: BASOPHILS % 0.5 % (0.0-2.0); EOSINOPHILS # 0.2 10^3/ul (0.0-0.5); EOSINOPHILS % 3.5 % (0.0-7.0); HEMATOCRIT 27.6 % (37.0-47.0); HEMOGLOBIN 8.6 g/dl (12.0-16.0); LYMPHOCYTES # 1.1 10^3/ul (0.8-2.9); LYMPHOCYTES % 17.4 % (15.0-51.0); MEAN CORPUSCULAR HEMOGLOBIN 28.9 pg (29.0-33.0); MEAN CORPUSCULAR HGB CONC 31.2 g/dl (32.0-37.0); MEAN CORPUSCULAR VOLUME 92.6 fl (82.0-101.0); MEAN PLATELET VOLUME 10.5 fl (7.4-10.4); MONOCYTE # 0.6 10^3/ul (0.3-0.9); MONOCYTES % 9.3 % (0.0-11.0); NEUTROPHIL # 4.2 10^3/ul (1.6-7.5); NEUTROPHILS % 67.9 % (39.0-77.0); PLATELET COUNT 214 10^3/UL (140-415); RED BLOOD COUNT 2.98 10^6/ul (4.20-5.40); RED CELL DISTRIBUTION WIDTH 16.6 % (11.5-14.5); WHITE BLOOD COUNT 6.3 10^3/ul (4.8-10.8)
[2016-07-29] MEDS: PANTOPRAZOLE (EC) 40 MG TAB PO SCH (05:22)
[2016-07-29 05:44] LABS: ALBUMIN 3.5 g/dl (3.3-4.9); POTASSIUM 5.5 mmol/L (3.5-5.1)
[2016-07-29 05:47] LABS: CREATININE 2.11 mg/dl (0.44-1.00)
[2016-07-29 05:48] LABS: CALCIUM 8.6 mg/dl (8.4-10.2)
[2016-07-29 07:25] VITALS: BP 122/57; RESP 18
[2016-07-29] MEDS: INSULIN ASPART [NOVOLOG] 3 ML PEN SC SCH ×4 (08:00→20:24)
[2016-07-29] MEDS: LORATADINE 10 MG TAB PO SCH (09:34)
[2016-07-29] MEDS: ASPIRIN (EC) 81 MG TAB PO SCH (09:34)
[2016-07-29] MEDS: CITRIC ACID/NA CITRATE 30 ML CUP PO SCH ×2 (09:35→20:21)
[2016-07-29] MEDS: CARBIDOPA/LEVODOPA (25/100) TAB PO SCH (09:35)
[2016-07-29] MEDS: CLOPIDOGREL 75 MG TAB PO SCH (09:35)
[2016-07-29] MEDS: FLUTICASONE 0.05% 16 GM NAS SPRAY NASAL SCH ×2 (09:35→20:21)
[2016-07-29] MEDS: HEPARIN 5,000 UNIT/0.5 ML SYG SC SCH ×2 (09:46→20:22)
[2016-07-29] MEDS ORDERED: NA POLYST SULFON 15 GM/60 ML BTL PO ONE (11:30)
[2016-07-29] MEDS ORDERED: SOD CHLORIDE 0.45% 1,000 ML IV SCH (11:30)
[2016-07-29] MEDS: MEGESTROL (40 MG/ML) 10ML CUP PO SCH (12:23)
--- NOTE | 2016-07-29 14:27 | PN ---
Date/Time of Note Date/Time of Note DATE: 07/29/16 TIME: 14:23 Assessment/Plan VTE Prophylaxis VTE Prophylaxis Intervention: heparin Lines/Catheters IV [facility]from [facility] Urinary Cath still in place: No Assessment/Plan Chief Complaint/Hosp Course X-ray indicates nondisplaced right subcapital femoral fracture that she had hemiarthroplasty on 07/12/2016. Patient haa anemia after the surgery with H/H 7/ 21.9 on 07/14/2016 and patient had hypotension that coreg/lisinipril were stopped. Patient got two units PRBCS transfusion, H/H improves to 10.4/30.9 on . I will resume coreg, adjust dosage and monitor blood pressure. Patient has chronic kidney disease. Last BUN/Cr are 38/2.34 on 07/17/2016. Metformin is stopped for renal failure. Januvia dosage will be 25 mg daily. Problems: Assessment/Plan 1. Right hip fracture s/p fall at home . s/p hemiarthroplasty of the right hip , follow up with ortho Dr. Byrd, follow up with PT 2. Severe anemia, acute on chronic, blood loss, 2 units PRBC 07/14/2016, follow up with PCP 3. 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 Patient does follow-up with her physician Dr. Valenzuela as outpatient for this issue. She is status post radiation therapy reportedly 3 weeks ago. Patient follow-up with outpatient oncologist 4. Renal failure, likely CKD, follow up with PCP 5. History of CAD with previous CABG. stable 6. Essential hypertension. restart coreg 7. History of dyslipidemia. Follow-up on fasting lipid panel. 8. Reported history of diabetes. on Januvia, and ISS 9.. Influenza A positive. treated 10. E.Coli UTI, treated 11. DVT prophylaxis: heparin 12. Hyperkalemia, Kayexalate, IVF, follow up with K Subjective 24 Hr Interval Summary Free Text/Dictation no pain. stronger. walks to the door with PT Exam/Review of Systems Vital Signs Vitals Vital Signs Date Time Temp Pulse Resp B/P Pulse Ox O2 Delivery O2 Flow Rate FiO2 07/29/16 07:25 99.3 86 18 122/57 96 Intake and Output 07/28/16 07/28/16 07/29/16 15:00 23:00 07:00 Intake Total 920 ml Balance 920 ml Exam Constitutional: alert, oriented, well developed Psych: nl mood/affect, no complaints Head: atraumatic, normocephalic Eyes: EOMI, PERRL, nl conjunctiva, nl lids ENMT: nl external ears & nose, nl lips & teeth, nl nasal mucosa & septum Neck: non-tender, supple Respiratory: clear to auscultation, normal air movement, No congested cough, No crackles/rales, No diminished breath sounds, No intercostal retraction, No labored breathing, No other, No respirations, No tactile fremitus, No wheezing Cardiovascular: nl pulses, regular rate and rhythm Gastrointestinal: nl liver, spleen, non-tender, soft, No ascites, No bowel sounds, No distended, No firm, No hepatomegaly, No mass , No other, No rebound or guarding, No splenomegaly, No surgical scars, No tender Musculoskeletal: nl extremities to inspection Extremities: normal pulses, No calf tenderness, No clubbing, No cyanosis, No edema, No other, No palpable cord, No pitting pedal edema, No tenderness Neurological: EVP STRATEGY II-XII intact, nl mental status, nl speech Skin: nl turgor Lymph: nl lymph nodes Results Result Diagram: 07/29/1644907/29/16 045 Results 24 hrs Laboratory Tests Test 07/28/16 17:25 07/28/16 19:55 07/29/16 04:50 07/29/16 07:58 Bedside Glucose 131 203 139 Albumin 3.5 Anion Gap 21 H Basophils # 0.0 Basophils % 0.5 Blood Urea Nitrogen 49 H Calcium Level 8.6 Carbon Dioxide Level 21 Chloride Level 105 Creatinine 2.11 H Eosinophils # 0.2 Eosinophils % 3.5 Glucose Level 142 Hematocrit 27.6 L Hemoglobin 8.6 L Lymphocytes # 1.1 Lymphocytes % 17.4 Mean Corpuscular Hemoglobin 28.9 L Mean Corpuscular Hemoglobin Concent 31.2 L Mean Corpuscular Volume 92.6 Mean Platelet Volume 10.5 H Monocytes # 0.6 Monocytes % 9.3 Neutrophils # 4.2 Neutrophils % 67.9 Nucleated Red Blood Cells # 0.0 Nucleated Red Blood Cells % 0.0 Phosphorus Level 3.0 Platelet Count 214 Potassium Level 5.5 H Red Blood Count 2.98 L Red Cell Distribution Width 16.6 H Sodium Level 141 White Blood Count 6.3 Test 07/29/16 11:47 Bedside Glucose 205 Medications Medications Current Medications Ondansetron HCl (Zofran Inj) 4 mg Q6H PRN IV NAUSEA AND/OR VOMITING Last administered on 07/06/16 11:46; Admin Dose 4 MG; Start 07/03/16 at 12:00 Acetaminophen (Tylenol Tab) 650 mg Q6H PRN PO PAIN LEVEL 1-3 OR FEVER Last administered on 07/27/16 06:04; Admin Dose 650 MG; Start 07/03/16 at 12:00 Acetaminophen (Tylenol Supp) 650 mg Q6H PRN OR PAIN LEVEL 1-3 OR FEVER; Start 07/03/16 at 12:00 Docusate Sodium (Colace) 100 mg Q12H PRN PO CONSTIPATION Last administered on 13:51; Admin Dose 100 MG; Start 07/03/16 at 12:00 Magnesium Hydroxide (Milk Of Mag) 30 ml DAILY PRN PO CONSTIPATION Last administered on 07/10/16 12:59; Admin Dose 30 ML; Start 07/03/16 at 12:00 Bisacodyl (Dulcolax Supp) 10 mg DAILY PRN OR CONSTIPATION Last administered on 07/11/16 14:30; Admin Dose 10 MG; Start 07/03/16 at 12:00 Aripiprazole (Abilify) 2 mg DAILY PO Last administered on 07/26/16 08:07; Admin Dose 2 MG; Start 07/04/16 at 09:00; Status Future Hold Aspirin (Halfprin) 81 mg DAILY PO Last administered on 07/29/16 09:34; Admin Dose 81 MG; Start 07/04/16 at 09:00 Clopidogrel Bisulfate (plaVIX) 75 mg DAILY PO Last administered on 07/29/16 09 :35; Admin Dose 75 MG; Start 07/04/16 at 09:00 Fluticasone Propionate (Flonase 0.05% Nasal) 1 spray BID NASAL Last administered on 07/29/16 09:35; Admin Dose 1 SPRAY; Start 07/03/16 at 21:00 Loratadine (Claritin) 10 mg DAILY PO Last administered on 07/29/16 09:34; Admin Dose 10 MG; Start 07/04/16 at 09:00 Meclizine HCl (Antivert) 25 mg Q12H PRN PO DIZZINESS; Start 07/03/16 at 14:30 Sertraline HCl (Zoloft) 50 mg DAILY PO Last administered on 07/26/16 08:07; Admin Dose 50 MG; Start 07/04/16 at 09:00; Status Future Hold Atorvastatin Calcium (Lipitor) 10 mg QHS PO Last administered on 07/28/16 20: 17; Admin Dose 10 MG; Start 07/03/16 at 21:00 Miscellaneous Information 1 ea NOTE XX ; Start 07/03/16 at 15:00 Glucose (Glutose) 15 gm Q15M PRN PO DECREASED GLUCOSE; Start 07/03/16 at 15:00 Glucose (Glutose) 22.5 gm Q15M PRN PO DECREASED GLUCOSE; Start 07/03/16 at 15: 00 Dextrose (D50w Syringe) 25 ml Q15M PRN IV DECREASED GLUCOSE; Start 07/03/16 at 15:00 Dextrose (D50w Syringe) 50 ml Q15M PRN IV DECREASED GLUCOSE; Start 07/03/16 at 15:00 Glucagon (Glucagen) 1 mg Q15M PRN IM DECREASED GLUCOSE; Start 07/03/16 at 15:00 Glucose (Glutose) 15 gm Q15M PRN BUCCAL DECREASED GLUCOSE; Start 07/03/16 at 15 :00 Citric Acid/ Sodium Citrate (Bicitra) 30 ml BID PO Last administered on 09:35; Admin Dose 30 ML; Start 07/04/16 at 21:00 Heparin Sodium (Porcine) (Heparin (5000 Units/0.5 ml)) 5,000 unit BID SC Last administered on 07/29/16 09:46; Admin Dose 5,000 UNIT; Start 07/05/16 at 21:00 Pantoprazole (Protonix Tab) 40 mg DAILY@06 PO Last administered on 07/29/16 05 :22; Admin Dose 40 MG; Start 07/07/16 at 06:00 Diagnostic Test (Pha) (Accucheck) 1 ea 02 XX Last administered on 07/17/16 02: 56; Admin Dose 1 EA; Start 07/08/16 at 02:00 Al Hydrox/Mg Hydrox/Simethicone (Mag-Al Plus) 30 ml Q6H PRN PO GASTROINTESTINAL UPSET Last administered on 07/07/16 11:35; Admin Dose 30 ML; Start 07/07/16 at 11:30 Carvedilol (Coreg) 25 mg BID PO Last administered on 07/28/16 20:18; Admin Dose 25 MG; Start 07/19/16 at 09:00 Hydralazine HCl (Apresoline) 10 mg Q8 PO Last administered on 07/29/16 05:22; Admin Dose 10 MG; Start 07/26/16 at 11:00 Alprazolam (Xanax) 0.25 mg QHS PRN PO anxiety Last administered on 07/28/16 22 :22; Admin Dose 0.25 MG; Start 07/26/16 at 21:00 Carbidopa/ Levodopa 1 tab 1 tab DAILY PO Last administered on 07/29/16 09:35; Admin Dose 1 TAB; Start 07/26/16 at 13:30 Sodium Chloride (1/2 NS) 1,000 ml @ 80 mls/hr [id number] IV Last administered on 07/29/16 12:28; Admin Dose 80 MLS/HR; Start 07/29/16 at 11:30 FERNANDO ALFARO MD Jul 29, 2016 14:27
[2016-07-29 14:32] VITALS: BP 112/59; PULSE 85
[2016-07-29 20:00] VITALS: BP 104/52; PULSE 86; RESP 18
--- NOTE | 2016-07-29 20:20 | CONS ---
Date/Time of Note Date/Time of Note DATE: 07/29/16 TIME: 20:19 Assessment/Plan Assessment/Plan Chief Complaint/Hosp Course IMPRESSION: 1. Patient has [id number] kidney disease, acute renal failure due to prerenal azotemia.BETTER 2. 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 Hyperkalemia better 4. Anemia of possibly chronic kidney disease. ang post op anemia 5. Metabolic acidosis. better 6. The patient also is status post fall with right hip fracture. PER ORTHO S/P SURGERY 7. Coronary artery disease with coronary artery bypass graft. 8. History of hysterectomy. 9. History of breast cancer, surgery on treatment. 10. Underlying chronic tubular interstitial nephritis. 11. proteinuria. 12 UTI 13 S/P RT HIP HEMIARTHROPLASTY 14 influenza a plan avoid nephrotoxic drugs BMP renal stable Problems: Consultation Date/Type/Reason Admit Date/Time Jul 03, 2016 at 11:46 Initial Consult Date 07/03/16 Type of Consultation: RENAL Referring Provider: JUNI NUNEZ 24 HR Interval Summary Constitutional: no complaints Exam/Review of Systems Vital Signs Vitals Vital Signs Date Time Temp Pulse Resp B/P Pulse Ox O2 Delivery O2 Flow Rate FiO2 07/29/16 14:32 85 112/59 07/29/16 07:25 99.3 18 96 Intake and Output 07/28/16 07/28/16 07/29/16 15:00 23:00 07:00 Intake Total 920 ml Balance 920 ml Exam Respiratory: clear to auscultation Cardiovascular: regular rate and rhythm Gastrointestinal: soft Results Result Diagram: 07/29/16 0450 07/29/16 1655 Results 24 hrs Laboratory Tests Test 07/29/16 04:50 07/29/16 07:58 07/29/16 11:47 07/29/16 16:55 Albumin 3.5 Anion Gap 21 H Basophils # 0.0 Basophils % 0.5 Blood Urea Nitrogen 49 H Calcium Level 8.6 Carbon Dioxide Level 21 Chloride Level 105 Creatinine 2.11 H Eosinophils # 0.2 Eosinophils % 3.5 Glucose Level 142 Hematocrit 27.6 L Hemoglobin 8.6 L Lymphocytes # 1.1 Lymphocytes % 17.4 Mean Corpuscular Hemoglobin 28.9 L Mean Corpuscular Hemoglobin Concent 31.2 L Mean Corpuscular Volume 92.6 Mean Platelet Volume 10.5 H Monocytes # 0.6 Monocytes % 9.3 Neutrophils # 4.2 Neutrophils % 67.9 Nucleated Red Blood Cells # 0.0 Nucleated Red Blood Cells % 0.0 Phosphorus Level 3.0 Platelet Count 214 Potassium Level 5.5 H 5.1 Red Blood Count 2.98 L Red Cell Distribution Width 16.6 H Sodium Level 141 White Blood Count 6.3 Bedside Glucose 139 205 Test 07/29/16 17:01 Bedside Glucose 173 Medications Medications Current Medications Ondansetron HCl (Zofran Inj) 4 mg Q6H PRN IV NAUSEA AND/OR VOMITING Last administered on 07/06/16 11:46; Admin Dose 4 MG; Start 07/03/16 at 12:00 Acetaminophen (Tylenol Tab) 650 mg Q6H PRN PO PAIN LEVEL 1-3 OR FEVER Last administered on 07/27/16 06:04; Admin Dose 650 MG; Start 07/03/16 at 12:00 Acetaminophen (Tylenol Supp) 650 mg Q6H PRN [place] PAIN LEVEL 1-3 OR FEVER; Start 07/03/16 at 12:00 Docusate Sodium (Colace) 100 mg Q12H PRN PO CONSTIPATION Last administered on 13:51; Admin Dose 100 MG; Start 07/03/16 at 12:00 Magnesium Hydroxide (Milk Of Mag) 30 ml DAILY PRN PO CONSTIPATION Last administered on 07/10/16 12:59; Admin Dose 30 ML; Start 07/03/16 at 12:00 Bisacodyl (Dulcolax Supp) 10 mg DAILY PRN [place] CONSTIPATION Last administered on 07/11/16 14:30; Admin Dose 10 MG; Start 07/03/16 at 12:00 Aripiprazole (Abilify) 2 mg DAILY PO Last administered on 07/26/16 08:07; Admin Dose 2 MG; Start 07/04/16 at 09:00; Status Future Hold Aspirin (Halfprin) 81 mg DAILY PO Last administered on 07/29/16 09:34; Admin Dose 81 MG; Start 07/04/16 at 09:00 Clopidogrel Bisulfate (plaVIX) 75 mg DAILY PO Last administered on 07/29/16 09 :35; Admin Dose 75 MG; Start 07/04/16 at 09:00 Fluticasone Propionate (Flonase 0.05% Nasal) 1 spray BID NASAL Last administered on 07/29/16 09:35; Admin Dose 1 SPRAY; Start 07/03/16 at 21:00 Loratadine (Claritin) 10 mg DAILY PO Last administered on 07/29/16 09:34; Admin Dose 10 MG; Start 07/04/16 at 09:00 Meclizine HCl (Antivert) 25 mg Q12H PRN PO DIZZINESS; Start 07/03/16 at 14:30 Sertraline HCl (Zoloft) 50 mg DAILY PO Last administered on 07/26/16 08:07; Admin Dose 50 MG; Start 07/04/16 at 09:00; Status Future Hold Atorvastatin Calcium (Lipitor) 10 mg QHS PO Last administered on 07/28/16 20: 17; Admin Dose 10 MG; Start 07/03/16 at 21:00 Miscellaneous Information 1 ea NOTE XX ; Start 07/03/16 at 15:00 Glucose (Glutose) 15 gm Q15M PRN PO DECREASED GLUCOSE; Start 07/03/16 at 15:00 Glucose (Glutose) 22.5 gm Q15M PRN PO DECREASED GLUCOSE; Start 07/03/16 at 15: 00 Dextrose (D50w Syringe) 25 ml Q15M PRN IV DECREASED GLUCOSE; Start 07/03/16 at 15:00 Dextrose (D50w Syringe) 50 ml Q15M PRN IV DECREASED GLUCOSE; Start 07/03/16 at 15:00 Glucagon (Glucagen) 1 mg Q15M PRN IM DECREASED GLUCOSE; Start 07/03/16 at 15:00 Glucose (Glutose) 15 gm Q15M PRN BUCCAL DECREASED GLUCOSE; Start 07/03/16 at 15 :00 Citric Acid/ Sodium Citrate (Bicitra) 30 ml BID PO Last administered on 09:35; Admin Dose 30 ML; Start 07/04/16 at 21:00 Heparin Sodium (Porcine) (Heparin (5000 Units/0.5 ml)) 5,000 unit BID SC Last administered on 07/29/16 09:46; Admin Dose 5,000 UNIT; Start 07/05/16 at 21:00 Pantoprazole (Protonix Tab) 40 mg DAILY@06 PO Last administered on 07/29/16 05 :22; Admin Dose 40 MG; Start 07/07/16 at 06:00 Diagnostic Test (Pha) (Accucheck) 1 ea 02 XX Last administered on 07/17/16 02: 56; Admin Dose 1 EA; Start 07/08/16 at 02:00 Al Hydrox/Mg Hydrox/Simethicone (Mag-Al Plus) 30 ml Q6H PRN PO GASTROINTESTINAL UPSET Last administered on 07/07/16 11:35; Admin Dose 30 ML; Start 07/07/16 at 11:30 Carvedilol (Coreg) 25 mg BID PO Last administered on 07/28/16 20:18; Admin Dose 25 MG; Start 07/19/16 at 09:00 Hydralazine HCl (Apresoline) 10 mg Q8 PO Last administered on 07/29/16 05:22; Admin Dose 10 MG; Start 07/26/16 at 11:00 Alprazolam (Xanax) 0.25 mg QHS PRN PO anxiety Last administered on 07/28/16 22 :22; Admin Dose 0.25 MG; Start 07/26/16 at 21:00 Carbidopa/ Levodopa 1 tab 1 tab DAILY PO Last administered on 07/29/16 09:35; Admin Dose 1 TAB; Start 07/26/16 at 13:30 Sodium Chloride (1/2 NS) 1,000 ml @ 80 mls/hr [id number] IV Last administered on 07/29/16 12:28; Admin Dose 80 MLS/HR; Start 07/29/16 at 11:30 PERRY ALVARES MD Jul 29, 2016 20:19
[2016-07-29] MEDS: ATORVASTATIN 10 MG TAB PO SCH (20:21)
--- NOTE | 2016-07-30 13:22 | DS ---
Date/Time of Note Date/Time of Note DATE: 07/30/16 TIME: 13:17 Discharge Summary Admission/Discharge Info Admit Date/Time Jul 03, 2016 at 11:46 Discharge Date/Time Jul 29, 2016 at 20:55 Final Diagnosis 1. Right hip fracture s/p fall at home . s/p hemiarthroplasty of the right hip , follow up with ortho Dr. Byrd, follow up with PT 2. Severe anemia, acute on chronic, blood loss, 2 units PRBC 07/14/2016, follow up with PCP 3. 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 Patient does follow-up with her physician Dr. Valenzuela as outpatient for this issue. She is status post radiation therapy reportedly 3 weeks ago. Patient follow-up with outpatient oncologist 4. Renal failure, likely CKD, follow up with PCP 5. History of CAD with previous CABG. stable 6. Essential hypertension. restart coreg 7. History of dyslipidemia. Follow-up on fasting lipid panel. 8. Reported history of diabetes. on Januvia, and ISS 9.. Influenza A positive. treated 10. E.Coli UTI, treated 11. DVT prophylaxis: heparin 12. Hyperkalemia, Kayexalate, resolved Patient Condition: Stable Procedures Hemiarthroplasty of the right hip, 07/12/2016 Hx of Present Illness This is a 80-year-old female with past medical history of reported left-sided breast cancer status post mastectomy as well as bone metastasis, myocardial infarction roughly 2003 with CABG, depression, diabetes, hypertension, dyslipidemia, obesity, who came to [facility] after suffering from a mechanical fall. According to the patient she was going to the restroom at roughly 12 AM last night. She reported that she tripped and fell. She denies any loss of consciousness or chest pain or shortness of breath or any dizziness or headache associated with it. She did report that she only fell on her right hip and subsequently went to [facility] for further evaluation. She did have pelvic x-ray that did show acute right subcapital femoral fracture. She was also noted to be slightly anemic with hemoglobin of 8.6 and hematocrit 25.3. She did have potassium of 6.4 BUN of 53 and a creatinine of 2.98. Initial troponin was 0.012. Of note patient did state that she does follow-up with her primary care physician as outpatient (Dr. Valenzuela: [phone]). Hospital Course She got hemiarthroplasty of the right hip on 07/12/2016 without complication. Patient tolerates PT and she is transferred to acute rehab for further rehab therapy. For anemia, she got 2 units of PRBCs on 07/14/2016, that improved her H/ H. Last H/H are 8.6/27.6 on 07/29/2016. Home Meds Active Scripts Sitagliptin* (Januvia*) 25 Mg Tablet, 25 MG PO DAILY, #30 TAB Prov:FERNANDO ALFARO MD 07/15/16 Insulin Aspart* (Novolog Insulin Pen*) 100 Unit/Ml Soln, 0 UNIT SC WITH MEALS BEDTIME for 30 Days Prov:FERNANDO ALFARO MD 07/15/16 Hydrocodone Bit-Acetaminophen (Hydrocodone Bit-APAP) 5-325MG Tablet, 1 TAB PO Q3H Y for PAIN for 20 Days, TAB Prov:FERNANDO ALFARO MD 07/15/16 Heparin Sod (Porcine)* (Heparin*) 5,000 Unit/0.5 Ml Soln, 5000 UNIT SC BID for 10 Days Prov:FERNANDO ALFARO MD 07/15/16 Reported Medications Alprazolam* (Xanax*) 0.25 Mg Tablet, 0.25 MG PO Q12, TAB 07/07/16 Levalbuterol* (Xopenex* HFA) 15 Gm Inha, 2 PUFFS INH Q6 Y for WHEEZING AND SOB, INHALER 07/03/16 Esomeprazole Mag Trihydrate (Nexium) 40 Mg Capsule.dr, 40 MG PO DAILY, #30 CAP 07/03/16 Meclizine Hcl* (Meclizine Hcl*) 25 Mg Tablet, 25 MG PO BID Y for DIZZINESS, TAB 07/03/16 Loratadine* (Loratadine*) 10 Mg Tablet, 10 MG PO DAILY, #30 TAB 07/03/16 Fluticasone Propionate* (Fluticasone Propionate* Nasal) 50 Mcg/[place] - 16 Gm [place].susp, 1 SPRAY NASAL BID, #1 BOTTLE TO EACH NOSTRIL 07/03/16 Aspirin (Low Dose Aspirin) 81 Mg Tablet.dr, 81 MG PO DAILY, #30 TAB 07/03/16 Megestrol Acetate* (Megestrol Acetate*) 400 Mg/10 Ml Susp, 400 MG PO BEFORE LUNCH, ML 07/03/16 Carbidopa-Levodopa* (Sinemet*) 25-100 Mg Tab, 1 TAB PO DAILY, TAB DOSAGE IS 10/100MG DAILY 07/03/16 Ferrous Sulfate (Ferrous Sulfate) 220 Mg/5 Ml Solution, 220 MG PO BID 07/03/16 Clopidogrel Bisulfate (Clopidogrel) 75 Mg Tablet, 75 MG PO DAILY, #30 TAB 07/03/16 Rosuvastatin Calcium* (Crestor*) 10 Mg Tablet, 10 MG PO QHS, #30 TAB 07/03/16 Carvedilol* (Carvedilol*) 12.5 Mg Tablet, 12.5 MG PO BID, #60 TAB 07/03/16 Sertraline Hcl* (Zoloft*) 50 Mg Tablet, 50 MG PO DAILY, #30 TAB 07/03/16 Aripiprazole* (Abilify*) 2 Mg Tablet, 2 MG PO DAILY, #30 TAB 07/03/16 Follow-up Plan acute rehab PCP in one week after discharge from rehab Pending Labs Laboratory Tests Test 07/29/16 16:55 07/29/16 17:01 07/29/16 20:23 07/30/16 09:25 Potassium Level 5.1mmol/L (3.5-5.1) Bedside Glucose 173mg/dL (70-220) 162mg/dL (70-220) Lab Scanned Report BLOOD [id number] FERNANDO ALFARO MD Jul 30, 2016 13:22
== END 2016-07-29 20:55 | DRG 470 ==
LOC: E/R 10:22 → MS4 11:46 → PP2 07-17 23:44
PROVIDERS: ADMIT Family Medicine; ATTEND Family Medicine
PROC: 0SRR01Z Replacement of Right Hip Joint, Femoral Surface with Metal Synthetic Substitute, Open Approach (ICD-10-PCS; principal; 2016-07-12 11:00)
DX: S72.091A Other fracture of head and neck of right femur, initial encounter for closed fracture (principal); N17.9 Acute kidney failure, unspecified; E87.2 Acidosis; C79.51 Secondary malignant neoplasm of bone; I95.9 Hypotension, unspecified; E11.22 Type 2 diabetes mellitus with diabetic chronic kidney disease; G20 Parkinson's disease; N39.0 Urinary tract infection, site not specified; N11.9 Chronic tubulo-interstitial nephritis, unspecified; I25.810 Atherosclerosis of coronary artery bypass graft(s) without angina pectoris; D62 Acute posthemorrhagic anemia; D63.8 Anemia in other chronic diseases classified elsewhere; I12.9 Hypertensive chronic kidney disease with stage 1 through stage 4 chronic kidney disease, or unspecified chronic kidney disease; E87.5 Hyperkalemia; B96.20 Unspecified Escherichia coli [E. coli] as the cause of diseases classified elsewhere; J11.1 Influenza due to unidentified influenza virus with other respiratory manifestations; I25.2 Old myocardial infarction; C50.912 Malignant neoplasm of unspecified site of left female breast; N18.3 Chronic kidney disease, stage 3 (moderate); W01.0XXA Fall on same level from slipping, tripping and stumbling without subsequent striking against object, initial encounter; Y92.012 Bathroom of single-family (private) house as the place of occurrence of the external cause; E78.5 Hyperlipidemia, unspecified; Z95.1 Presence of aortocoronary bypass graft; F09 Unspecified mental disorder due to known physiological condition; E83.42 Hypomagnesemia; F02.80 Dementia in other diseases classified elsewhere, unspecified severity, without behavioral disturbance, psychotic disturbance, mood disturbance, and anxiety
CPT/HCPCS: 36415; 36430; 71010; 72170; 73510; 76775; 80048; 80053; 80061; 80069; 81001; 81003; 82570; 82962; 83036; 83735; 84100; 84132; 84155; 84300; 84436; 84443; 84479; 84484; 85014; 85018; 85025; 85610; 85730; 86704; 86709; 86803; 86850; 86900; 86901; 86920; 87040; 87086; 87340; 87400; 88305; 88311; 88342; 89190; 90686; 92526; 92610; 93005; 93306; 94664; 96372; 96374; 96375; 96376; 97110; 97116; 97162; 97530; C1776; C9113; J0610; J0690; J1100; J1170; J1815; J1956; J2270; J2370; J2405; J2765; J3010; J3370; J3475; J3480; J7040; J7042; J7070; P9016; P9045

== ENCOUNTER 2016-07-29 18:33 | Inpatient (IN) | payer MEDICARE, OTHER ==
[~2016-07-29] VITALS: Ht 157.5 cm; Wt 64.0 kg
[~2016-07-29 18:33] MED LIST: ALPR0.25 PO; ARIP2TAB8 PO; ASPI-664 PO; CARV12.579 PO; CLOP75TA27 PO; CRES10 PO; ESOM40CA PO; FERR220S2 PO; FLUT16SP17 NASAL; HEP5KI SC; HYDR-3498 PO; LORA10TA3 PO; MECL-77 PO; MEG40/1 PO; NOVO3I SC; SERT50TA PO; SIN25100 PO; SITA25TA3 PO; XOP15INH INH
[2016-07-29 21:30] VITALS: BP 137/58; RESP 18
[2016-07-29] MEDS ORDERED: GLUCAGON 1 MG INJ IM PRN (22:45)
[2016-07-29] MEDS ORDERED: DEXTROSE 50% 50 ML SYRINGE IV PRN ×2 (22:45)
[2016-07-29] MEDS ORDERED: MECLIZINE 25 MG TAB PO PRN (22:45)
[2016-07-29] MEDS ORDERED: GLUCOSE GEL 15 GRAM TUBE PO PRN ×2 (22:45)
[2016-07-29] MEDS ORDERED: GLUCOSE GEL 15 GRAM TUBE BUCCAL PRN (22:45)
[2016-07-29] MEDS ORDERED: AL HYDROX/MG HYDROX/SIMETH 30 ML CUP PO PRN (23:00)
[2016-07-29] MEDS ORDERED: BISACODYL 10 MG SUPP PR PRN (23:00)
[2016-07-29] MEDS: ACETAMINOPHEN 325 MG TAB PO PRN (23:14)
[2016-07-29] MEDS: ALPRAZOLAM 0.25 MG TAB PO PRN (23:14)
[2016-07-29 23:31] LABS: ADD UMIC YES; URINE BILIRUBIN (Dip) NEGATIVE (NEGATIVE); URINE BLOOD (Dip) NEGATIVE (NEGATIVE); URINE COLOR LT. YELLOW (YELLOW); URINE KETONES (Dip) NEGATIVE (NEGATIVE); URINE LEUKOCYTE ESTERASE (Dip) TRACE (NEGATIVE); URINE NITRITE (Dip) NEGATIVE (NEGATIVE); URINE TOTAL PROTEIN (Dip) 1+ (NEGATIVE); URINE UROBILINOGEN (Dip) 4.0 E.U./dL (0.1-1.0)
[2016-07-30 00:08] LABS: BACTERIA,URINE MANY; SQUAMOUS EPITHELIAL CELL,UR FEW; URINE RBCS 0-2 /HPF (0)
[2016-07-30 01:21] VITALS: Ht 157.5 cm; Wt 64.0 kg
[2016-07-30] MEDS: LEVALBUTEROL (HFA) 15 GM INHALER INH SCH ×4 (02:00→21:00)
[2016-07-30] MEDS: ACCUCHECK AT 2AM (Patients on SS coverage) XX SCH (02:00)
[2016-07-30] MEDS: PANTOPRAZOLE (EC) 40 MG TAB PO SCH (06:26)
[2016-07-30 06:43] LABS: ADD SCAN DIFF NO
[2016-07-30 06:47] LABS: BASOPHILS % 0.4 % (0.0-2.0); EOSINOPHILS # 0.2 10^3/ul (0.0-0.5); EOSINOPHILS % 3.9 % (0.0-7.0); HEMATOCRIT 29.8 % (37.0-47.0); HEMOGLOBIN 9.3 g/dl (12.0-16.0); LYMPHOCYTES # 1.1 10^3/ul (0.8-2.9); MEAN CORPUSCULAR HEMOGLOBIN 29.2 pg (29.0-33.0); MEAN CORPUSCULAR HGB CONC 31.2 g/dl (32.0-37.0); MEAN CORPUSCULAR VOLUME 93.4 fl (82.0-101.0); MEAN PLATELET VOLUME 10.5 fl (7.4-10.4); MONOCYTE # 0.6 10^3/ul (0.3-0.9); MONOCYTES % 10.2 % (0.0-11.0); NEUTROPHIL # 3.6 10^3/ul (1.6-7.5); NEUTROPHILS % 63.7 % (39.0-77.0); PLATELET COUNT 231 10^3/UL (140-415); RED BLOOD COUNT 3.19 10^6/ul (4.20-5.40); RED CELL DISTRIBUTION WIDTH 16.7 % (11.5-14.5); WHITE BLOOD COUNT 5.7 10^3/ul (4.8-10.8)
[2016-07-30 07:02] LABS: ALBUMIN 3.6 g/dl (3.3-4.9)
[2016-07-30 07:03] LABS: POTASSIUM 4.9 mmol/L (3.5-5.1)
[2016-07-30 07:05] LABS: BILIRUBIN,INDIRECT 0.3 mg/dl (0-1.1); BILIRUBIN,TOTAL 0.3 mg/dl (0.2-1.3); CREATININE 2.08 mg/dl (0.44-1.00); TOTAL PROTEIN 7.2 g/dl (6.1-8.1)
[2016-07-30] MEDS: Insulin NOVOLOG SS MILD Algorithm (SS with meals and bedtime) SC SCH ×4 (07:05→21:19)
[2016-07-30 07:06] LABS: CALCIUM 8.8 mg/dl (8.4-10.2)
[2016-07-30 07:52] VITALS: BP 159/70; PULSE 81; RESP 20
[2016-07-30] MEDS: ARIPIPRAZOLE 2 MG TAB PO SCH (08:50)
[2016-07-30] MEDS: LORATADINE 10 MG TAB PO SCH (08:50)
[2016-07-30] MEDS: DOCUSATE SODIUM 100 MG CAP PO SCH ×2 (08:50→21:15)
[2016-07-30] MEDS: CARBIDOPA/LEVODOPA (25/100) TAB PO SCH (08:51)
[2016-07-30] MEDS: CLOPIDOGREL 75 MG TAB PO SCH (08:51)
[2016-07-30] MEDS: SERTRALINE 50 MG TAB PO SCH (08:51)
[2016-07-30] MEDS: ASPIRIN (EC) 81 MG TAB PO SCH (08:51)
[2016-07-30] MEDS: FLUTICASONE 0.05% 16 GM NAS SPRAY NASAL SCH ×2 (08:51→21:22)
[2016-07-30] MEDS: HEPARIN 5,000 UNIT/0.5 ML SYG SC SCH ×2 (08:53→21:17)
--- NOTE | 2016-07-30 11:37 | CONS ---
DATE OF ADMISSION: 07/29/2016 DATE OF CONSULTATION: 07/30/2016 TYPE OF CONSULTATION: Rehabilitation post-admission physician evaluation REHABILITATION IMPAIRMENT CATEGORY: Right hip subcapital fracture status post hemiarthroplasty. ACTIVE COMORBIDITIES: 1. Parkinson's disease requiring medication adjustment. 2. Dysphagia requiring dysphagia diet. 3. History of breast cancer with bone metastases. 4. Anemia. 5. History of myocardial infarction and coronary artery bypass graft. 6. Diabetes mellitus. 7. Hypertension. 8. Dyslipidemia. 9. Impairments in self-care, mobility and cognition. HISTORY OF PRESENT ILLNESS: The patient is a 80-year-old female with a history of multiple medical comorbidities, who was admitted after a ground level fall with resultant right subcapital hip fractu re. The patient underwent a right hip hemiarthroplasty on 07/12/[address] Byrd. Her postoperative course was notable for significant anemia requiring transfusion. The patient also noted to have he r Parkinson's disease and did require medication adjustment. The patient also noted to have signifi cant dysphagia and was followed closely by speech therapy. The patient has now been cleared to [facility] to the rehabilitation unit for comprehensive interdisciplinary rehab care. FUNCTIONAL HISTORY: Prior to recent events, she was independent in self-care tasks and mobility. C urrently, the patient requires maximal assist for self-care and mobility tasks. I have reviewed the preadmission screen and the patient's current functional status is consistent wi th the preadmission screen. SOCIAL HISTORY: The patient lives at home with family and hopes to return there upon discharge. PAST MEDICAL HISTORY: 1. History of breast cancer status post mastectomy in addition to bone metastases. 2. History of coronary artery disease with history of myocardial infarction and CABG. 3. Diabetes mellitus. 4. Hypertension. 5. Dyslipidemia. 6. Obesity. 7. Depression. CURRENT MEDICATIONS: 1. Abilify 2 mg p.o. daily. 2. Aspirin 81 mg p.o. daily. 3. Crestor 10 mg p.o. daily. 4. Coreg 25 mg p.o. b.i.d. 5. Plavix 75 mg p.o. daily. 6. Insulin sliding scale. 7. Flonase. 8. Heparin 5000 units subcutaneous b.i.d. 9. Levalbuterol inhaler. 10. Sinemet 25/100 one tab p.o. daily. 11. Claritin 10 mg p.o. daily. 12. Antivert p.r.n. 13. Zoloft 50 mg p.o. daily. ALLERGIES: 1. PENICILLIN. 2. CODEINE. 3. PENICILLIN. PHYSICAL EXAMINATION: VITAL SIGNS: The patient is currently afebrile, pulse 81, respiratory rate 20, blood pressure 159/7 0. HEENT: The extraocular motions appear intact. The oropharynx is clear. NECK: Supple. LUNGS: Clear anteriorly. CARDIAC: S1, S2. ABDOMEN: Soft, nontender, positive bowel sounds. NEUROLOGIC: The patient is awake and able to follow simple 1-step commands. She demonstrates antig ravity strength in bilateral upper extremity and left lower extremity. Dorsiflexion and plantar fle xion intact on the right. PLAN: The patient has been admitted for comprehensive interdisciplinary acute rehab and is anticipa kevin to tolerate 3 hours of daily therapy in divided doses for at least 5/7 days a week. Treatment p jenny will include: 1. Physical therapy to focus on bed mobility, transfers, and household ambulation with the goal of having the patient reach standby assist level. 2. Occupational therapy to focus on hygiene, grooming, dressing, bathing, and toileting activities with the goal of having the patient reach standby assist level. 3. Speech therapy for full cognitive assessment in addition to dysphagia management with the goal o f having the patient meet nutritional needs by mouth and return to baseline cognition. 4. Rehabilitation nursing for carryover of therapeutic interventions, the goal of continent of amanda l and bladder, and the goal of pain adequately managed on oral medications. REHABILITATION BARRIER: Dysphagia. INTERVENTION FOR BARRIER: Speech therapy. ESTIMATED LENGTH OF STAY: 14 days. DISPOSITION GOAL: Home with family. I acknowledge that I performed a full physical examination on this patient within 24 hours of admiss ion to the rehabilitation unit. I believe the patient is a good candidate for comprehensive interdi sciplinary rehab care and is anticipated to make reasonable goals in a reasonable period of time as outlined above. Dictated By: REBEKAH MEDRANO/FRANCIE Conf#: [id number] DID#: [id number]
[2016-07-30] MEDS: MEGESTROL (40 MG/ML) 10ML CUP PO SCH (12:37)
--- NOTE | 2016-07-30 18:48 | CONS ---
Date/Time of Note Date/Time of Note DATE: 07/30/16 TIME: 18:46 Assessment/Plan Assessment/Plan Chief Complaint/Hosp Course CKD ANEMIA METABOLIC ACIDOSIS BETTER S/P HIP SURGERY PLAN F/U BMP Problems: Consultation Date/Type/Reason Admit Date/Time Jul 29, 2016 at 21:59 Initial Consult Date Type of Consultation: renal 24 HR Interval Summary Constitutional: improved Exam/Review of Systems Vital Signs Vitals Vital Signs Date Time Temp Pulse Resp B/P Pulse Ox O2 Delivery O2 Flow Rate FiO2 07/30/16 07:52 99.1 81 20 159/70 98 Room Air Intake and Output 07/29/16 07/29/16 07/30/16 15:00 23:00 07:00 Intake Total 120 ml Output Total 300 ml 300 ml Balance -180 ml -300 ml Exam Neck: supple Respiratory: clear to auscultation Cardiovascular: regular rate and rhythm Gastrointestinal: soft Results Result Diagram: 07/30/16 0615 07/30/16 0615 Results 24 hrs Laboratory Tests Test 07/29/16 22:20 07/30/16 06:15 07/30/16 07:42 07/30/16 12:20 Urine Bacteria MANY Urine Bilirubin NEGATIVE Urine Clarity SLIGHTLY CLOUDY Urine Color LT. YELLOW Urine Glucose 0.1% H Urine Hemoglobin NEGATIVE Urine Ketones NEGATIVE Urine Leukocyte Esterase TRACE H Urine Microscopic RBC 0-2 Urine Microscopic WBC 2-5 Urine Nitrite NEGATIVE Urine Specific [place] 1.015 Urine Squamous Epithelial Cells FEW Urine Total Protein 1+ H Urine Urobilinogen 4.0 E.U./dL H Urine pH 8.0 Alanine Aminotransferase (ALT/SGPT) 30 Albumin 3.6 Albumin/Globulin Ratio 1.00 Alkaline Phosphatase 209 H Anion Gap 20 H Aspartate Amino Transf (AST/SGOT) 32 Basophils # 0.0 Basophils % 0.4 Blood Urea Nitrogen 42 H Calcium Level 8.8 Carbon Dioxide Level 24 Chloride Level 105 Creatinine 2.08 H Direct Bilirubin 0.00 Eosinophils # 0.2 Eosinophils % 3.9 Globulin 3.60 H Glucose Level 127 Hematocrit 29.8 L Hemoglobin 9.3 L Indirect Bilirubin 0.3 Lymphocytes # 1.1 Lymphocytes % 20.0 Mean Corpuscular Hemoglobin 29.2 Mean Corpuscular Hemoglobin Concent 31.2 L Mean Corpuscular Volume 93.4 Mean Platelet Volume 10.5 H Monocytes # 0.6 Monocytes % 10.2 Neutrophils # 3.6 Neutrophils % 63.7 Nucleated Red Blood Cells # 0.0 Nucleated Red Blood Cells % 0.0 Platelet Count 231 Potassium Level 4.9 Red Blood Count 3.19 L Red Cell Distribution Width 16.7 H Sodium Level 144 Total Bilirubin 0.3 Total Protein 7.2 White Blood Count 5.7 Bedside Glucose 126 194 Test 07/30/16 17:06 Bedside Glucose 140 Medications Medications Current Medications Sertraline HCl (Zoloft) 50 mg DAILY PO Last administered on 07/30/16 08:51; Admin Dose 50 MG; Start 07/30/16 at 09:00 Pantoprazole (Protonix Tab) 40 mg DAILY@06 PO Last administered on 07/30/16 06 :26; Admin Dose 40 MG; Start 07/30/16 at 06:00 Carbidopa/Levodopa (Sinemet (25/ 100)) 1 tab DAILY PO Last administered on 07/30 08:51; Admin Dose 1 TAB; Start 07/30/16 at 09:00 Loratadine (Claritin) 10 mg DAILY PO Last administered on 07/30/16 08:50; Admin Dose 10 MG; Start 07/30/16 at 09:00 Meclizine HCl (Antivert) 25 mg Q12H PRN PO DIZZINESS; Start 07/29/16 at 22:45 Miscellaneous Information 1 ea NOTE XX ; Start 07/29/16 at 22:45 Glucose (Glutose) 15 gm Q15M PRN PO DECREASED GLUCOSE; Start 07/29/16 at 22:45 Glucose (Glutose) 22.5 gm Q15M PRN PO DECREASED GLUCOSE; Start 07/29/16 at 22: 45 Dextrose (D50w Syringe) 25 ml Q15M PRN IV DECREASED GLUCOSE; Start 07/29/16 at 22:45 Dextrose (D50w Syringe) 50 ml Q15M PRN IV DECREASED GLUCOSE; Start 07/29/16 at 22:45 Glucagon (Glucagen) 1 mg Q15M PRN IM DECREASED GLUCOSE; Start 07/29/16 at 22:45 Glucose (Glutose) 15 gm Q15M PRN BUCCAL DECREASED GLUCOSE; Start 07/29/16 at 22 :45 Heparin Sodium (Porcine) (Heparin (5000 Units/0.5 ml)) 5,000 unit BID SC Last administered on 07/30/16 08:53; Admin Dose 5,000 UNIT; Start 07/30/16 at 09:00 Diagnostic Test (Pha) (Accucheck) 1 ea 02 XX ; Start 07/30/16 at 02:00 Fluticasone Propionate (Flonase 0.05% Nasal) 1 spray BID NASAL Last administered on 07/30/16 08:51; Admin Dose 1 SPRAY; Start 07/30/16 at 09:00 Carvedilol (Coreg) 25 mg BID PO Last administered on 07/30/16 08:50; Admin Dose 25 MG; Start 07/30/16 at 09:00 Clopidogrel Bisulfate (plaVIX) 75 mg DAILY PO Last administered on 07/30/16 08 :51; Admin Dose 75 MG; Start 07/30/16 at 09:00 Atorvastatin Calcium (Lipitor) 40 mg DAILY@21 PO ; Start 07/30/16 at 21:00 Acetaminophen (Tylenol Tab) 650 mg Q6H PRN PO PAIN AND OR ELEVATED TEMP Last administered on 07/29/16 23:14; Admin Dose 650 MG; Start 07/29/16 at 23:00 Al Hydrox/Mg Hydrox/Simethicone (Mag-Al Plus) 30 ml Q6H PRN PO GASTROINTESTINAL UPSET; Start 07/29/16 at 23:00 Alprazolam (Xanax) 0.25 mg HS PRN PO INSOMNIA Last administered on 07/29/16 23 :14; Admin Dose 0.25 MG; Start 07/29/16 at 23:00 Aripiprazole (Abilify) 2 mg DAILY PO Last administered on 07/30/16 08:50; Admin Dose 2 MG; Start 07/30/16 at 09:00 Aspirin (Halfprin) 81 mg DAILY PO Last administered on 07/30/16 08:51; Admin Dose 81 MG; Start 07/30/16 at 09:00 Docusate Sodium (Colace) 100 mg BID PO Last administered on 07/30/16 08:50; Admin Dose 100 MG; Start 07/30/16 at 09:00 Senna (Senokot) 1 tab HS PO ; Start 07/30/16 at 21:00 Lactulose (Enulose) 20 gm DAILY PRN PO CONSTIPATION; Start 07/29/16 at 23:00 Bisacodyl (Dulcolax Supp) 10 mg DAILY PRN [place] CONSTIPATION; Start 07/29/16 at 23 :00 PERRY ALVARES MD Jul 30, 2016 18:48
[2016-07-30 19:09] VITALS: BP 124/59; RESP 18
[2016-07-30] MEDS: ATORVASTATIN 40 MG TAB PO SCH (21:16)
[2016-07-30] MEDS: SENNA TAB PO SCH (21:16)
[2016-07-30] MEDS: ALPRAZOLAM 0.25 MG TAB PO PRN (21:26)
[2016-07-31] MEDS: ACCUCHECK AT 2AM (Patients on SS coverage) XX SCH (02:15)
[2016-07-31] MEDS: LEVALBUTEROL (HFA) 15 GM INHALER INH SCH ×4 (02:15→21:00)
[2016-07-31] MEDS: PANTOPRAZOLE (EC) 40 MG TAB PO SCH (06:47)
[2016-07-31] MEDS: Insulin NOVOLOG SS MILD Algorithm (SS with meals and bedtime) SC SCH ×4 (07:05→21:15)
[2016-07-31 08:21] VITALS: BP 129/60; PULSE 78; RESP 20
[2016-07-31] MEDS: FLUTICASONE 0.05% 16 GM NAS SPRAY NASAL SCH ×2 (09:00→21:00)
[2016-07-31] MEDS: LACTULOSE 30ML CUP PO PRN (09:34)
[2016-07-31] MEDS: SERTRALINE 50 MG TAB PO SCH (09:35)
[2016-07-31] MEDS: ASPIRIN (EC) 81 MG TAB PO SCH (09:35)
[2016-07-31] MEDS: ARIPIPRAZOLE 2 MG TAB PO SCH (09:35)
[2016-07-31] MEDS: CLOPIDOGREL 75 MG TAB PO SCH (09:35)
[2016-07-31] MEDS: LORATADINE 10 MG TAB PO SCH (09:35)
[2016-07-31] MEDS: CARBIDOPA/LEVODOPA (25/100) TAB PO SCH (09:35)
[2016-07-31] MEDS: DOCUSATE SODIUM 100 MG CAP PO SCH ×2 (09:35→20:59)
[2016-07-31] MEDS: HEPARIN 5,000 UNIT/0.5 ML SYG SC SCH ×2 (09:44→21:15)
[2016-07-31] MEDS: MEGESTROL (40 MG/ML) 10ML CUP PO SCH (11:30)
--- NOTE | 2016-07-31 12:41 | HP ---
DATE OF ADMISSION: 07/29/2016 REASON FOR ADMISSION: Fall with recent hip fracture. HISTORY OF PRESENT ILLNESS: This is a 80-year-old lady with history of breast cancer status post ma stectomy, history of bony metastasis, prior myocardial infarction, came in to [facility] on 07/03/2016 with mechanical fall, found to have a left hip fracture. She underwent hemiart hroplasty by Dr. Eliana Byrd. Subsequently had a prolonged recovery requiring transfusion of packed r ed blood cells for anemia, correction of hypokalemia for renal insufficiency, now transferred to [facility] rehab unit for continuing care. PAST MEDICAL HISTORY: 1. Acute on chronic kidney disease. 2. History of coronary artery disease. 3. History of mechanical fall. 4. History of breast cancer with metastases. 5. History of anemia. 6. Influenza A, treated. 7. E. coli urinary tract infection, treated. MEDICATIONS: Per chart include: 1. Sitagliptin insulin. 2. Heparin subcutaneous. 3. Esomeprazole. 4. Meclizine p.r.n. 5. Loratadine. 6. Aspirin. 7. Plavix. 8. Crestor. 9. Carvedilol. 10. Sertraline. ALLERGIES: NONE. SOCIAL HISTORY: Nonsmoker, no alcohol, no history of drug use. FAMILY HISTORY: Noncontributory. SYSTEMS REVIEW: A 14-point review of systems is negative other than that mentioned above. PHYSICAL EXAMINATION: GENERAL: Elderly-appearing lady, appears comfortable at rest, family are at bedside. VITAL SIGNS: Temperature 98, pulse 78, blood pressure 129/60, O2 saturation 96% on FIO2 of room air . NECK: Supple. No JVD or lymphadenopathy. CARDIAC: S1, S2, no added sounds or murmurs. CHEST: Diminished air entry bilaterally. ABDOMEN: Soft, nontender. No guarding or rebound. EXTREMITIES: No cyanosis, clubbing, edema. NEUROLOGIC: Generalized weakness. LABORATORY DATA: White count 5.7, hemoglobin 9.3, platelets 231. BUN 42, creatinine 2.08. HbA1c i s 5.9. IMPRESSION AND PLAN: 1. Mechanical fall, status post hemiarthroplasty. 2. History of breast cancer. 3. deconditioning. 4. Hypertension. 5. Anemia, status post transfusion of packed red blood cells. Dictated By: JEMIMA CASTORENA/FRANCIE Conf#: [id number] DID#: [id number]
--- NOTE | 2016-07-31 12:56 | CONS ---
Date/Time of Note Date/Time of Note DATE: 07/31/16 TIME: 12:55 Consult Date/Type/Reason Admit Date/Time Jul 29, 2016 at 21:59 Initial Consult Date Type of Consultation: renal Subjective Comfortable Objective pulm-cta Vital Signs Date Time Temp Pulse Resp B/P Pulse Ox O2 Delivery O2 Flow Rate FiO2 07/31/16 08:21 98.3 78 20 129/60 96 Room Air Intake and Output 07/30/16 07/30/16 07/31/16 14:59 22:59 06:59 Intake Total 350 ml 400 ml 800 ml Output Total 200 ml 600 ml Balance 150 ml 400 ml 200 ml Results/Medications Result Diagram: 07/30/16 0615 07/30/16 0615 Results 24 hrs Laboratory Tests Test 07/30/16 17:06 07/30/16 20:58 07/31/16 02:23 07/31/16 07:30 Bedside Glucose 140 196 126 125 Test 07/31/16 12:23 Bedside Glucose 182 Medications Current Medications Sertraline HCl (Zoloft) 50 mg DAILY PO Last administered on 07/31/16 09:35; Admin Dose 50 MG; Start 07/30/16 at 09:00 Pantoprazole (Protonix Tab) 40 mg DAILY@06 PO Last administered on 07/31/16 06 :47; Admin Dose 40 MG; Start 07/30/16 at 06:00 Carbidopa/Levodopa (Sinemet (25/ 100)) 1 tab DAILY PO Last administered on 07/31 09:35; Admin Dose 1 TAB; Start 07/30/16 at 09:00 Loratadine (Claritin) 10 mg DAILY PO Last administered on 07/31/16 09:35; Admin Dose 10 MG; Start 07/30/16 at 09:00 Meclizine HCl (Antivert) 25 mg Q12H PRN PO DIZZINESS; Start 07/29/16 at 22:45 Miscellaneous Information 1 ea NOTE XX ; Start 07/29/16 at 22:45 Glucose (Glutose) 15 gm Q15M PRN PO DECREASED GLUCOSE; Start 07/29/16 at 22:45 Glucose (Glutose) 22.5 gm Q15M PRN PO DECREASED GLUCOSE; Start 07/29/16 at 22: 45 Dextrose (D50w Syringe) 25 ml Q15M PRN IV DECREASED GLUCOSE; Start 07/29/16 at 22:45 Dextrose (D50w Syringe) 50 ml Q15M PRN IV DECREASED GLUCOSE; Start 07/29/16 at 22:45 Glucagon (Glucagen) 1 mg Q15M PRN IM DECREASED GLUCOSE; Start 07/29/16 at 22:45 Glucose (Glutose) 15 gm Q15M PRN BUCCAL DECREASED GLUCOSE; Start 07/29/16 at 22 :45 Heparin Sodium (Porcine) (Heparin (5000 Units/0.5 ml)) 5,000 unit BID SC Last administered on 07/31/16 09:44; Admin Dose 5,000 UNIT; Start 07/30/16 at 09:00 Diagnostic Test (Pha) (Accucheck) 1 ea 02 XX ; Start 07/30/16 at 02:00 Fluticasone Propionate (Flonase 0.05% Nasal) 1 spray BID NASAL Last administered on 07/31/16 09:00; Admin Dose 1 SPRAY; Start 07/30/16 at 09:00 Carvedilol (Coreg) 25 mg BID PO Last administered on 07/31/16 09:36; Admin Dose 25 MG; Start 07/30/16 at 09:00 Clopidogrel Bisulfate (plaVIX) 75 mg DAILY PO Last administered on 07/31/16 09 :35; Admin Dose 75 MG; Start 07/30/16 at 09:00 Atorvastatin Calcium (Lipitor) 40 mg DAILY@21 PO Last administered on 21:16; Admin Dose 40 MG; Start 07/30/16 at 21:00 Acetaminophen (Tylenol Tab) 650 mg Q6H PRN PO PAIN AND OR ELEVATED TEMP Last administered on 07/29/16 23:14; Admin Dose 650 MG; Start 07/29/16 at 23:00 Al Hydrox/Mg Hydrox/Simethicone (Mag-Al Plus) 30 ml Q6H PRN PO GASTROINTESTINAL UPSET; Start 07/29/16 at 23:00 Alprazolam (Xanax) 0.25 mg HS PRN PO INSOMNIA Last administered on 07/30/16 21 :26; Admin Dose 0.25 MG; Start 07/29/16 at 23:00 Aripiprazole (Abilify) 2 mg DAILY PO Last administered on 07/31/16 09:35; Admin Dose 2 MG; Start 07/30/16 at 09:00 Aspirin (Halfprin) 81 mg DAILY PO Last administered on 07/31/16 09:35; Admin Dose 81 MG; Start 07/30/16 at 09:00 Docusate Sodium (Colace) 100 mg BID PO Last administered on 07/31/16 09:35; Admin Dose 100 MG; Start 07/30/16 at 09:00 Senna (Senokot) 1 tab HS PO Last administered on 07/30/16 21:16; Admin Dose 1 TAB; Start 07/30/16 at 21:00 Lactulose (Enulose) 20 gm DAILY PRN PO CONSTIPATION Last administered on 09:34; Admin Dose 20 GM; Start 07/29/16 at 23:00 Bisacodyl (Dulcolax Supp) 10 mg DAILY PRN [place] CONSTIPATION; Start 07/29/16 at 23 :00 Assessment/Plan Additional Assessment/Plan Rehab- Right hip subcapital fracture status post hemiarthroplasty. Increase activities as tolerated Parkinson's disease requiring medication adjustment. Dysphagia - dysphagia diet and speech History of breast cancer with bone metastases. Anemia. History of myocardial infarction and coronary artery bypass graft. Diabetes mellitus. Hypertension. Dyslipidemia. REBEKAH CRAFT MD Jul 31, 2016 12:56
--- NOTE | 2016-07-31 18:09 | CONS ---
Date/Time of Note Date/Time of Note DATE: 07/31/16 TIME: 18:08 Assessment/Plan Assessment/Plan Chief Complaint/Hosp Course CKD ANEMIA METABOLIC ACIDOSIS BETTER S/P HIP SURGERY PLAN F/U BMP renal stable Problems: Consultation Date/Type/Reason Admit Date/Time Jul 29, 2016 at 21:59 Type of Consultation: renal Exam/Review of Systems Vital Signs Vitals Vital Signs Date Time Temp Pulse Resp B/P Pulse Ox O2 Delivery O2 Flow Rate FiO2 07/31/16 08:21 98.3 78 20 129/60 96 Room Air Intake and Output 07/30/16 07/30/16 07/31/16 15:00 23:00 07:00 Intake Total 350 ml 400 ml 800 ml Output Total 200 ml 600 ml Balance 150 ml 400 ml 200 ml Exam Cardiovascular: regular rate and rhythm Gastrointestinal: soft Musculoskeletal: nl extremities to inspection Extremities: normal pulses Results Result Diagram: 07/30/1615 07/30/16 0615 Results 24 hrs Laboratory Tests Test 07/30/16 20:58 07/31/16 02:23 07/31/16 07:30 07/31/16 12:23 Bedside Glucose 196 126 125 182 Test 07/31/16 17:29 Bedside Glucose 221 H Medications Medications Current Medications Sertraline HCl (Zoloft) 50 mg DAILY PO Last administered on 07/31/16 09:35; Admin Dose 50 MG; Start 07/30/16 at 09:00 Pantoprazole (Protonix Tab) 40 mg DAILY@06 PO Last administered on 07/31/16 06 :47; Admin Dose 40 MG; Start 07/30/16 at 06:00 Carbidopa/Levodopa (Sinemet (25/ 100)) 1 tab DAILY PO Last administered on 07/31 09:35; Admin Dose 1 TAB; Start 07/30/16 at 09:00 Loratadine (Claritin) 10 mg DAILY PO Last administered on 07/31/16 09:35; Admin Dose 10 MG; Start 07/30/16 at 09:00 Meclizine HCl (Antivert) 25 mg Q12H PRN PO DIZZINESS; Start 07/29/16 at 22:45 Miscellaneous Information 1 ea NOTE XX ; Start 07/29/16 at 22:45 Glucose (Glutose) 15 gm Q15M PRN PO DECREASED GLUCOSE; Start 07/29/16 at 22:45 Glucose (Glutose) 22.5 gm Q15M PRN PO DECREASED GLUCOSE; Start 07/29/16 at 22: 45 Dextrose (D50w Syringe) 25 ml Q15M PRN IV DECREASED GLUCOSE; Start 07/29/16 at 22:45 Dextrose (D50w Syringe) 50 ml Q15M PRN IV DECREASED GLUCOSE; Start 07/29/16 at 22:45 Glucagon (Glucagen) 1 mg Q15M PRN IM DECREASED GLUCOSE; Start 07/29/16 at 22:45 Glucose (Glutose) 15 gm Q15M PRN BUCCAL DECREASED GLUCOSE; Start 07/29/16 at 22 :45 Heparin Sodium (Porcine) (Heparin (5000 Units/0.5 ml)) 5,000 unit BID SC Last administered on 07/31/16 09:44; Admin Dose 5,000 UNIT; Start 07/30/16 at 09:00 Diagnostic Test (Pha) (Accucheck) 1 ea 02 XX ; Start 07/30/16 at 02:00 Fluticasone Propionate (Flonase 0.05% Nasal) 1 spray BID NASAL Last administered on 07/31/16 09:00; Admin Dose 1 SPRAY; Start 07/30/16 at 09:00 Carvedilol (Coreg) 25 mg BID PO Last administered on 07/31/16 09:36; Admin Dose 25 MG; Start 07/30/16 at 09:00 Clopidogrel Bisulfate (plaVIX) 75 mg DAILY PO Last administered on 07/31/16 09 :35; Admin Dose 75 MG; Start 07/30/16 at 09:00 Atorvastatin Calcium (Lipitor) 40 mg DAILY@21 PO Last administered on 21:16; Admin Dose 40 MG; Start 07/30/16 at 21:00 Acetaminophen (Tylenol Tab) 650 mg Q6H PRN PO PAIN AND OR ELEVATED TEMP Last administered on 07/29/16 23:14; Admin Dose 650 MG; Start 07/29/16 at 23:00 Al Hydrox/Mg Hydrox/Simethicone (Mag-Al Plus) 30 ml Q6H PRN PO GASTROINTESTINAL UPSET; Start 07/29/16 at 23:00 Alprazolam (Xanax) 0.25 mg HS PRN PO INSOMNIA Last administered on 07/30/16 21 :26; Admin Dose 0.25 MG; Start 07/29/16 at 23:00 Aripiprazole (Abilify) 2 mg DAILY PO Last administered on 07/31/16 09:35; Admin Dose 2 MG; Start 07/30/16 at 09:00 Aspirin (Halfprin) 81 mg DAILY PO Last administered on 07/31/16 09:35; Admin Dose 81 MG; Start 07/30/16 at 09:00 Docusate Sodium (Colace) 100 mg BID PO Last administered on 07/31/16 09:35; Admin Dose 100 MG; Start 07/30/16 at 09:00 Senna (Senokot) 1 tab HS PO Last administered on 07/30/16 21:16; Admin Dose 1 TAB; Start 07/30/16 at 21:00 Lactulose (Enulose) 20 gm DAILY PRN PO CONSTIPATION Last administered on 09:34; Admin Dose 20 GM; Start 07/29/16 at 23:00 Bisacodyl (Dulcolax Supp) 10 mg DAILY PRN [place] CONSTIPATION; Start 07/29/16 at 23 :00 PERRY ALVARES MD Jul 31, 2016 18:09
[2016-07-31 20:23] VITALS: BP 149/67; RESP 18
[2016-07-31] MEDS: ATORVASTATIN 40 MG TAB PO SCH (20:59)
[2016-07-31] MEDS: SENNA TAB PO SCH (20:59)
[2016-07-31] MEDS: ALPRAZOLAM 0.25 MG TAB PO PRN (21:29)
[2016-08-01] MEDS: ACCUCHECK AT 2AM (Patients on SS coverage) XX SCH (02:00)
[2016-08-01] MEDS: LEVALBUTEROL (HFA) 15 GM INHALER INH SCH ×4 (02:16→21:01)
[2016-08-01] MEDS: PANTOPRAZOLE (EC) 40 MG TAB PO SCH (06:29)
[2016-08-01] MEDS: Insulin NOVOLOG SS MILD Algorithm (SS with meals and bedtime) SC SCH ×4 (07:05→21:00)
[2016-08-01 08:00] VITALS: BP 127/58; PULSE 88; RESP 18
--- NOTE | 2016-08-01 08:24 | CONS ---
Date/Time of Note Date/Time of Note DATE: 08/01/16 TIME: 08:24 Consult Date/Type/Reason Admit Date/Time Jul 29, 2016 at 21:59 Type of Consultation: renal Subjective no new complaints Objective pulm-cta abd-soft Vital Signs Date Time Temp Pulse Resp B/P Pulse Ox O2 Delivery O2 Flow Rate FiO2 07/31/16 20:23 97.8 80 18 149/67 96 07/31/16 08:21 Room Air Intake and Output 07/31/16 07/31/16 08/01/16 15:00 23:00 07:00 Intake Total 900 ml 350 ml Balance 900 ml 350 ml Results/Medications Result Diagram: 07/30/1615 07/30/16 0615 Results 24 hrs Laboratory Tests Test 07/31/16 12:23 07/31/16 17:29 07/31/16 20:56 08/01/16 02:03 Bedside Glucose 182 221 H 181 139 Test 08/01/16 07:34 Bedside Glucose 125 Medications Current Medications Sertraline HCl (Zoloft) 50 mg DAILY PO Last administered on 07/31/16 09:35; Admin Dose 50 MG; Start 07/30/16 at 09:00 Pantoprazole (Protonix Tab) 40 mg DAILY@06 PO Last administered on 08/01/16 06 :29; Admin Dose 40 MG; Start 07/30/16 at 06:00 Carbidopa/Levodopa (Sinemet (25/ 100)) 1 tab DAILY PO Last administered on 07/31 09:35; Admin Dose 1 TAB; Start 07/30/16 at 09:00 Loratadine (Claritin) 10 mg DAILY PO Last administered on 07/31/16 09:35; Admin Dose 10 MG; Start 07/30/16 at 09:00 Meclizine HCl (Antivert) 25 mg Q12H PRN PO DIZZINESS; Start 07/29/16 at 22:45 Miscellaneous Information 1 ea NOTE XX ; Start 07/29/16 at 22:45 Glucose (Glutose) 15 gm Q15M PRN PO DECREASED GLUCOSE; Start 07/29/16 at 22:45 Glucose (Glutose) 22.5 gm Q15M PRN PO DECREASED GLUCOSE; Start 07/29/16 at 22: 45 Dextrose (D50w Syringe) 25 ml Q15M PRN IV DECREASED GLUCOSE; Start 07/29/16 at 22:45 Dextrose (D50w Syringe) 50 ml Q15M PRN IV DECREASED GLUCOSE; Start 07/29/16 at 22:45 Glucagon (Glucagen) 1 mg Q15M PRN IM DECREASED GLUCOSE; Start 07/29/16 at 22:45 Glucose (Glutose) 15 gm Q15M PRN BUCCAL DECREASED GLUCOSE; Start 07/29/16 at 22 :45 Heparin Sodium (Porcine) (Heparin (5000 Units/0.5 ml)) 5,000 unit BID SC Last administered on 07/31/16 21:15; Admin Dose 5,000 UNIT; Start 07/30/16 at 09:00 Diagnostic Test (Pha) (Accucheck) 1 ea 02 XX ; Start 07/30/16 at 02:00 Fluticasone Propionate (Flonase 0.05% Nasal) 1 spray BID NASAL Last administered on 07/31/16 21:00; Admin Dose 1 SPRAY; Start 07/30/16 at 09:00 Carvedilol (Coreg) 25 mg BID PO Last administered on 07/31/16 09:36; Admin Dose 25 MG; Start 07/30/16 at 09:00 Clopidogrel Bisulfate (plaVIX) 75 mg DAILY PO Last administered on 07/31/16 09 :35; Admin Dose 75 MG; Start 07/30/16 at 09:00 Atorvastatin Calcium (Lipitor) 40 mg DAILY@21 PO Last administered on 20:59; Admin Dose 40 MG; Start 07/30/16 at 21:00 Acetaminophen (Tylenol Tab) 650 mg Q6H PRN PO PAIN AND OR ELEVATED TEMP Last administered on 07/29/16 23:14; Admin Dose 650 MG; Start 07/29/16 at 23:00 Al Hydrox/Mg Hydrox/Simethicone (Mag-Al Plus) 30 ml Q6H PRN PO GASTROINTESTINAL UPSET; Start 07/29/16 at 23:00 Alprazolam (Xanax) 0.25 mg HS PRN PO INSOMNIA Last administered on 07/31/16 21 :29; Admin Dose 0.25 MG; Start 07/29/16 at 23:00 Aripiprazole (Abilify) 2 mg DAILY PO Last administered on 07/31/16 09:35; Admin Dose 2 MG; Start 07/30/16 at 09:00 Aspirin (Halfprin) 81 mg DAILY PO Last administered on 07/31/16 09:35; Admin Dose 81 MG; Start 07/30/16 at 09:00 Docusate Sodium (Colace) 100 mg BID PO Last administered on 07/31/16 20:59; Admin Dose 100 MG; Start 07/30/16 at 09:00 Senna (Senokot) 1 tab HS PO Last administered on 07/31/16 20:59; Admin Dose 1 TAB; Start 07/30/16 at 21:00 Lactulose (Enulose) 20 gm DAILY PRN PO CONSTIPATION Last administered on 09:34; Admin Dose 20 GM; Start 07/29/16 at 23:00 Bisacodyl (Dulcolax Supp) 10 mg DAILY PRN [place] CONSTIPATION; Start 07/29/16 at 23 :00 Assessment/Plan Additional Assessment/Plan Rehab- Right hip subcapital fracture status post hemiarthroplasty. Continue current therapy program Parkinson's disease Dysphagia - speech therapy History of breast cancer with bone metastases. Anemia. History of myocardial infarction and coronary artery bypass graft. Diabetes mellitus. Hypertension. Dyslipidemia. REBEKAH CRAFT MD Aug 01, 2016 08:24
[2016-08-01] MEDS: DOCUSATE SODIUM 100 MG CAP PO SCH ×2 (09:07→21:01)
[2016-08-01] MEDS: ARIPIPRAZOLE 2 MG TAB PO SCH (09:07)
[2016-08-01] MEDS: CLOPIDOGREL 75 MG TAB PO SCH (09:07)
[2016-08-01] MEDS: SERTRALINE 50 MG TAB PO SCH (09:07)
[2016-08-01] MEDS: ASPIRIN (EC) 81 MG TAB PO SCH (09:07)
[2016-08-01] MEDS: LORATADINE 10 MG TAB PO SCH (09:07)
[2016-08-01] MEDS: CARBIDOPA/LEVODOPA (25/100) TAB PO SCH (09:07)
[2016-08-01] MEDS: FLUTICASONE 0.05% 16 GM NAS SPRAY NASAL SCH ×2 (09:08→21:02)
[2016-08-01] MEDS: HEPARIN 5,000 UNIT/0.5 ML SYG SC SCH ×2 (09:12→21:12)
--- NOTE | 2016-08-01 11:50 | CONS ---
Date/Time of Note Date/Time of Note DATE: 08/01/16 TIME: 11:50 Assessment/Plan Assessment/Plan Chief Complaint/Hosp Course CKD ANEMIA METABOLIC ACIDOSIS BETTER S/P HIP SURGERY PLAN F/U BMP renal stable Problems: Consultation Date/Type/Reason Admit Date/Time Jul 29, 2016 at 21:59 Type of Consultation: renal 24 HR Interval Summary Constitutional: no complaints Exam/Review of Systems Vital Signs Vitals Vital Signs Date Time Temp Pulse Resp B/P Pulse Ox O2 Delivery O2 Flow Rate FiO2 08/01/16 08:00 98.6 88 18 127/58 97 Room Air Intake and Output 07/31/16 07/31/16 08/01/16 15:00 23:00 07:00 Intake Total 900 ml 350 ml Balance 900 ml 350 ml Exam Respiratory: clear to auscultation Cardiovascular: regular rate and rhythm Gastrointestinal: soft Results Result Diagram: 07/30/16 0615 07/30/16 0615 Results 24 hrs Laboratory Tests Test 07/31/16 12:23 07/31/16 17:29 07/31/16 20:56 08/01/16 02:03 Bedside Glucose 182 221 H 181 139 Test 08/01/16 07:34 08/01/16 11:35 Bedside Glucose 125 178 Medications Medications Current Medications Sertraline HCl (Zoloft) 50 mg DAILY PO Last administered on 08/01/16 09:07; Admin Dose 50 MG; Start 07/30/16 at 09:00 Pantoprazole (Protonix Tab) 40 mg DAILY@06 PO Last administered on 08/01/16 06 :29; Admin Dose 40 MG; Start 07/30/16 at 06:00 Carbidopa/Levodopa (Sinemet (25/ 100)) 1 tab DAILY PO Last administered on 08/01 09:07; Admin Dose 1 TAB; Start 07/30/16 at 09:00 Loratadine (Claritin) 10 mg DAILY PO Last administered on 08/01/16 09:07; Admin Dose 10 MG; Start 07/30/16 at 09:00 Meclizine HCl (Antivert) 25 mg Q12H PRN PO DIZZINESS; Start 07/29/16 at 22:45 Miscellaneous Information 1 ea NOTE XX ; Start 07/29/16 at 22:45 Glucose (Glutose) 15 gm Q15M PRN PO DECREASED GLUCOSE; Start 07/29/16 at 22:45 Glucose (Glutose) 22.5 gm Q15M PRN PO DECREASED GLUCOSE; Start 07/29/16 at 22: 45 Dextrose (D50w Syringe) 25 ml Q15M PRN IV DECREASED GLUCOSE; Start 07/29/16 at 22:45 Dextrose (D50w Syringe) 50 ml Q15M PRN IV DECREASED GLUCOSE; Start 07/29/16 at 22:45 Glucagon (Glucagen) 1 mg Q15M PRN IM DECREASED GLUCOSE; Start 07/29/16 at 22:45 Glucose (Glutose) 15 gm Q15M PRN BUCCAL DECREASED GLUCOSE; Start 07/29/16 at 22 :45 Heparin Sodium (Porcine) (Heparin (5000 Units/0.5 ml)) 5,000 unit BID SC Last administered on 08/01/16 09:12; Admin Dose 5,000 UNIT; Start 07/30/16 at 09:00 Diagnostic Test (Pha) (Accucheck) 1 ea 02 XX ; Start 07/30/16 at 02:00 Fluticasone Propionate (Flonase 0.05% Nasal) 1 spray BID NASAL Last administered on 08/01/16 09:08; Admin Dose 1 SPRAY; Start 07/30/16 at 09:00 Carvedilol (Coreg) 25 mg BID PO Last administered on 08/01/16 09:07; Admin Dose 25 MG; Start 07/30/16 at 09:00 Clopidogrel Bisulfate (plaVIX) 75 mg DAILY PO Last administered on 08/01/16 09 :07; Admin Dose 75 MG; Start 07/30/16 at 09:00 Atorvastatin Calcium (Lipitor) 40 mg DAILY@21 PO Last administered on 20:59; Admin Dose 40 MG; Start 07/30/16 at 21:00 Acetaminophen (Tylenol Tab) 650 mg Q6H PRN PO PAIN AND OR ELEVATED TEMP Last administered on 07/29/16 23:14; Admin Dose 650 MG; Start 07/29/16 at 23:00 Al Hydrox/Mg Hydrox/Simethicone (Mag-Al Plus) 30 ml Q6H PRN PO GASTROINTESTINAL UPSET; Start 07/29/16 at 23:00 Alprazolam (Xanax) 0.25 mg HS PRN PO INSOMNIA Last administered on 07/31/16 21 :29; Admin Dose 0.25 MG; Start 07/29/16 at 23:00 Aripiprazole (Abilify) 2 mg DAILY PO Last administered on 08/01/16 09:07; Admin Dose 2 MG; Start 07/30/16 at 09:00 Aspirin (Halfprin) 81 mg DAILY PO Last administered on 08/01/16 09:07; Admin Dose 81 MG; Start 07/30/16 at 09:00 Docusate Sodium (Colace) 100 mg BID PO Last administered on 08/01/16 09:07; Admin Dose 100 MG; Start 07/30/16 at 09:00 Senna (Senokot) 1 tab HS PO Last administered on 07/31/16 20:59; Admin Dose 1 TAB; Start 07/30/16 at 21:00 Lactulose (Enulose) 20 gm DAILY PRN PO CONSTIPATION Last administered on 09:34; Admin Dose 20 GM; Start 07/29/16 at 23:00 Bisacodyl (Dulcolax Supp) 10 mg DAILY PRN [place] CONSTIPATION; Start 07/29/16 at 23 :00 PERRY ALVARES MD Aug 01, 2016 11:50
[2016-08-01] MEDS: MEGESTROL (40 MG/ML) 10ML CUP PO SCH (12:04)
--- NOTE | 2016-08-01 13:20 | PN ---
DATE: 08/01/2016 INTERNAL MEDICINE FOLLOWUP SUBJECTIVE: Patient Kevon is stable this morning. No new events. No labs drawn. OBJECTIVE: VITAL SIGNS: Temperature 98, pulse is 88, blood pressure 127/57, O2 saturation 97% on room air. NECK: Supple. No JVD or lymphadenopathy. CARDIAC: S1, S2, no added sounds or murmurs. CHEST: Diminished air entry bilaterally. ABDOMEN: Soft, nontender. No guarding or rebound. EXTREMITIES: No cyanosis, clubbing. No edema. NEUROLOGIC: Unchanged. IMPRESSION: 1. Recent fall with hip fracture, status post hemiarthroplasty. 2. History of diabetes. 3. History of breast cancer with metastatic disease. PLAN: 1. Continue physical therapy. 2. Continue renal recommendations for CKD. 3. Continue DVT and GI prophylaxis. Dictated By: JEMIMA CASTORENA/FRANCIE Conf#: [id number] DID#: [id number]
[2016-08-01 19:14] VITALS: BP 124/60; RESP 18
[2016-08-01] MEDS: ATORVASTATIN 40 MG TAB PO SCH (21:01)
[2016-08-01] MEDS: SENNA TAB PO SCH (21:01)
[2016-08-02] MEDS: ACCUCHECK AT 2AM (Patients on SS coverage) XX SCH (02:00)
[2016-08-02] MEDS: LEVALBUTEROL (HFA) 15 GM INHALER INH SCH ×4 (02:00→22:00)
[2016-08-02] MEDS: PANTOPRAZOLE (EC) 40 MG TAB PO SCH (06:21)
[2016-08-02] MEDS: Insulin NOVOLOG SS MILD Algorithm (SS with meals and bedtime) SC SCH ×4 (07:05→22:12)
[2016-08-02] MEDS: LORATADINE 10 MG TAB PO SCH (08:08)
[2016-08-02] MEDS: CLOPIDOGREL 75 MG TAB PO SCH (08:08)
[2016-08-02] MEDS: CARBIDOPA/LEVODOPA (25/100) TAB PO SCH (08:08)
[2016-08-02] MEDS: DOCUSATE SODIUM 100 MG CAP PO SCH ×2 (08:09→22:00)
[2016-08-02] MEDS: ASPIRIN (EC) 81 MG TAB PO SCH (08:09)
[2016-08-02] MEDS: SERTRALINE 50 MG TAB PO SCH (08:09)
[2016-08-02] MEDS: ARIPIPRAZOLE 2 MG TAB PO SCH (08:09)
[2016-08-02 08:10] VITALS: BP 139/63; PULSE 82; RESP 18
[2016-08-02] MEDS: FLUTICASONE 0.05% 16 GM NAS SPRAY NASAL SCH ×2 (08:10→22:00)
[2016-08-02] MEDS: HEPARIN 5,000 UNIT/0.5 ML SYG SC SCH ×2 (08:16→22:11)
[2016-08-02] MEDS: MEGESTROL (40 MG/ML) 10ML CUP PO SCH (11:57)
--- NOTE | 2016-08-02 15:22 | CONS ---
Date/Time of Note Date/Time of Note DATE: 08/02/16 TIME: 15:21 Assessment/Plan Assessment/Plan Chief Complaint/Hosp Course CKD ANEMIA METABOLIC ACIDOSIS BETTER S/P HIP SURGERY PLAN F/U BMP renal stable pt/ot d/w family Problems: Consultation Date/Type/Reason Admit Date/Time Jul 29, 2016 at 21:59 Type of Consultation: renal Exam/Review of Systems Vital Signs Vitals Vital Signs Date Time Temp Pulse Resp B/P Pulse Ox O2 Delivery O2 Flow Rate FiO2 08/02/16 08:10 98.6 82 18 139/63 97 Room Air Intake and Output 08/01/16 08/01/16 08/02/16 15:00 23:00 07:00 Intake Total 750 ml 500 ml Output Total 600 ml 680 ml Balance -600 ml 70 ml 500 ml Exam Respiratory: clear to auscultation Cardiovascular: regular rate and rhythm, No edema Results Result Diagram: 07/30/16 0615 07/30/16 0615 Results 24 hrs Laboratory Tests Test 08/01/16 17:04 08/01/16 20:30 08/02/16 07:39 08/02/16 12:02 Bedside Glucose 139 164 121 169 Medications Medications Current Medications Sertraline HCl (Zoloft) 50 mg DAILY PO Last administered on 08/02/16 08:09; Admin Dose 50 MG; Start 07/30/16 at 09:00 Pantoprazole (Protonix Tab) 40 mg DAILY@06 PO Last administered on 08/02/16 06 :21; Admin Dose 40 MG; Start 07/30/16 at 06:00 Carbidopa/Levodopa (Sinemet (25/ 100)) 1 tab DAILY PO Last administered on 08/02 08:08; Admin Dose 1 TAB; Start 07/30/16 at 09:00 Loratadine (Claritin) 10 mg DAILY PO Last administered on 08/02/16 08:08; Admin Dose 10 MG; Start 07/30/16 at 09:00 Meclizine HCl (Antivert) 25 mg Q12H PRN PO DIZZINESS; Start 07/29/16 at 22:45 Miscellaneous Information 1 ea NOTE XX ; Start 07/29/16 at 22:45 Glucose (Glutose) 15 gm Q15M PRN PO DECREASED GLUCOSE; Start 07/29/16 at 22:45 Glucose (Glutose) 22.5 gm Q15M PRN PO DECREASED GLUCOSE; Start 07/29/16 at 22: 45 Dextrose (D50w Syringe) 25 ml Q15M PRN IV DECREASED GLUCOSE; Start 07/29/16 at 22:45 Dextrose (D50w Syringe) 50 ml Q15M PRN IV DECREASED GLUCOSE; Start 07/29/16 at 22:45 Glucagon (Glucagen) 1 mg Q15M PRN IM DECREASED GLUCOSE; Start 07/29/16 at 22:45 Glucose (Glutose) 15 gm Q15M PRN BUCCAL DECREASED GLUCOSE; Start 07/29/16 at 22 :45 Heparin Sodium (Porcine) (Heparin (5000 Units/0.5 ml)) 5,000 unit BID SC Last administered on 08/02/16 08:16; Admin Dose 5,000 UNIT; Start 07/30/16 at 09:00 Diagnostic Test (Pha) (Accucheck) 1 ea 02 XX ; Start 07/30/16 at 02:00 Fluticasone Propionate (Flonase 0.05% Nasal) 1 spray BID NASAL Last administered on 08/02/16 08:10; Admin Dose 1 SPRAY; Start 07/30/16 at 09:00 Carvedilol (Coreg) 25 mg BID PO Last administered on 08/02/16 08:10; Admin Dose 25 MG; Start 07/30/16 at 09:00 Clopidogrel Bisulfate (plaVIX) 75 mg DAILY PO Last administered on 08/02/16 08 :08; Admin Dose 75 MG; Start 07/30/16 at 09:00 Atorvastatin Calcium (Lipitor) 40 mg DAILY@21 PO Last administered on 21:01; Admin Dose 40 MG; Start 07/30/16 at 21:00 Acetaminophen (Tylenol Tab) 650 mg Q6H PRN PO PAIN AND OR ELEVATED TEMP Last administered on 07/29/16 23:14; Admin Dose 650 MG; Start 07/29/16 at 23:00 Al Hydrox/Mg Hydrox/Simethicone (Mag-Al Plus) 30 ml Q6H PRN PO GASTROINTESTINAL UPSET; Start 07/29/16 at 23:00 Alprazolam (Xanax) 0.25 mg HS PRN PO INSOMNIA Last administered on 07/31/16 21 :29; Admin Dose 0.25 MG; Start 07/29/16 at 23:00 Aripiprazole (Abilify) 2 mg DAILY PO Last administered on 08/02/16 08:09; Admin Dose 2 MG; Start 07/30/16 at 09:00 Aspirin (Halfprin) 81 mg DAILY PO Last administered on 08/02/16 08:09; Admin Dose 81 MG; Start 07/30/16 at 09:00 Docusate Sodium (Colace) 100 mg BID PO Last administered on 08/02/16 08:09; Admin Dose 100 MG; Start 07/30/16 at 09:00 Senna (Senokot) 1 tab HS PO Last administered on 08/01/16 21:01; Admin Dose 1 TAB; Start 07/30/16 at 21:00 Lactulose (Enulose) 20 gm DAILY PRN PO CONSTIPATION Last administered on 09:34; Admin Dose 20 GM; Start 07/29/16 at 23:00 Bisacodyl (Dulcolax Supp) 10 mg DAILY PRN [place] CONSTIPATION; Start 07/29/16 at 23 :00 PERYR ALVARES MD Aug 02, 2016 15:22
[2016-08-02 19:38] VITALS: BP 118/56; RESP 18
[2016-08-02] MEDS: SENNA TAB PO SCH (22:00)
[2016-08-02] MEDS: ATORVASTATIN 40 MG TAB PO SCH (22:00)
[2016-08-02] MEDS: ACETAMINOPHEN 325 MG TAB PO PRN (22:21)
[2016-08-03] MEDS: LEVALBUTEROL (HFA) 15 GM INHALER INH SCH ×4 (01:53→21:20)
[2016-08-03] MEDS: ACCUCHECK AT 2AM (Patients on SS coverage) XX SCH (02:00)
[2016-08-03] MEDS: PANTOPRAZOLE (EC) 40 MG TAB PO SCH (05:59)
[2016-08-03 06:59] LABS: POTASSIUM 5.1 mmol/L (3.5-5.1)
[2016-08-03 07:01] LABS: CREATININE 2.16 mg/dl (0.44-1.00)
[2016-08-03 07:02] LABS: CALCIUM 8.9 mg/dl (8.4-10.2)
[2016-08-03] MEDS: Insulin NOVOLOG SS MILD Algorithm (SS with meals and bedtime) SC SCH ×4 (07:05→21:26)
[2016-08-03 07:30] VITALS: BP 132/63; RESP 18
[2016-08-03] MEDS: HEPARIN 5,000 UNIT/0.5 ML SYG SC SCH ×2 (09:06→21:22)
[2016-08-03] MEDS: SERTRALINE 50 MG TAB PO SCH (09:07)
[2016-08-03] MEDS: ARIPIPRAZOLE 2 MG TAB PO SCH (09:07)
[2016-08-03] MEDS: CLOPIDOGREL 75 MG TAB PO SCH (09:07)
[2016-08-03] MEDS: ASPIRIN (EC) 81 MG TAB PO SCH (09:07)
[2016-08-03] MEDS: LORATADINE 10 MG TAB PO SCH (09:07)
[2016-08-03] MEDS: CARBIDOPA/LEVODOPA (25/100) TAB PO SCH (09:08)
[2016-08-03] MEDS: DOCUSATE SODIUM 100 MG CAP PO SCH ×2 (09:09→21:20)
[2016-08-03] MEDS: FLUTICASONE 0.05% 16 GM NAS SPRAY NASAL SCH ×2 (09:10→21:20)
[2016-08-03] MEDS: LACTULOSE 30ML CUP PO PRN (09:14)
[2016-08-03 09:16] VITALS: BP 130/61; PULSE 82; RESP 18
--- NOTE | 2016-08-03 12:00 | CONS ---
Date/Time of Note Date/Time of Note DATE: 08/03/16 TIME: 12:00 Consult Date/Type/Reason Admit Date/Time Jul 29, 2016 at 21:59 Type of Consultation: renal Objective Vital Signs Date Time Temp Pulse Resp B/P Pulse Ox O2 Delivery O2 Flow Rate FiO2 08/03/16 09:16 97.9 82 18 130/61 97 Room Air Intake and Output 08/02/16 08/02/16 08/03/16 15:00 23:00 07:00 Intake Total 1180 ml 765 ml 300 ml Output Total 200 ml 200 ml Balance 980 ml 565 ml 300 ml INTERDISCIPLINARY TEAM CONFERENCE BOWEL- Cont BLADDER-incont SKIN- intact OT- DRESSING-mod/max BATHING-mod/max TOILETING-max PT- BED MOBILITY-max TRANSFERS-max AMBULATION-max SPEECH- COGNITION-mod A/P- Interdisciplinary team conference held today. Please see interdisciplinary sheet. Working toward d.c. on 08/13 with post discharge follow up of physical therapy, occupational therapy. Results/Medications Result Diagram: 07/30/16 0615 08/03/16 0608 Results 24 hrs Laboratory Tests Test 08/02/16 12:02 08/02/16 17:10 08/02/16 20:44 08/03/16 02:29 Bedside Glucose 169 131 186 193 Test 08/03/16 06:08 08/03/16 07:11 08/03/16 11:49 Anion Gap 21 H Blood Urea Nitrogen 48 H Calcium Level 8.9 Carbon Dioxide Level 18 L Chloride Level 108 Creatinine 2.16 H Glucose Level 121 Potassium Level 5.1 Sodium Level 142 Bedside Glucose 114 156 Medications Current Medications Sertraline HCl (Zoloft) 50 mg DAILY PO Last administered on 08/03/16 09:07; Admin Dose 50 MG; Start 07/30/16 at 09:00 Pantoprazole (Protonix Tab) 40 mg DAILY@06 PO Last administered on 08/03/16 05 :59; Admin Dose 40 MG; Start 07/30/16 at 06:00 Carbidopa/Levodopa (Sinemet (25/ 100)) 1 tab DAILY PO Last administered on 08/03 09:08; Admin Dose 1 TAB; Start 07/30/16 at 09:00 Loratadine (Claritin) 10 mg DAILY PO Last administered on 08/03/16 09:07; Admin Dose 10 MG; Start 07/30/16 at 09:00 Meclizine HCl (Antivert) 25 mg Q12H PRN PO DIZZINESS; Start 07/29/16 at 22:45 Miscellaneous Information 1 ea NOTE XX ; Start 07/29/16 at 22:45 Glucose (Glutose) 15 gm Q15M PRN PO DECREASED GLUCOSE; Start 07/29/16 at 22:45 Glucose (Glutose) 22.5 gm Q15M PRN PO DECREASED GLUCOSE; Start 07/29/16 at 22: 45 Dextrose (D50w Syringe) 25 ml Q15M PRN IV DECREASED GLUCOSE; Start 07/29/16 at 22:45 Dextrose (D50w Syringe) 50 ml Q15M PRN IV DECREASED GLUCOSE; Start 07/29/16 at 22:45 Glucagon (Glucagen) 1 mg Q15M PRN IM DECREASED GLUCOSE; Start 07/29/16 at 22:45 Glucose (Glutose) 15 gm Q15M PRN BUCCAL DECREASED GLUCOSE; Start 07/29/16 at 22 :45 Heparin Sodium (Porcine) (Heparin (5000 Units/0.5 ml)) 5,000 unit BID SC Last administered on 08/03/16 09:06; Admin Dose 5,000 UNIT; Start 07/30/16 at 09:00 Diagnostic Test (Pha) (Accucheck) 1 ea 02 XX ; Start 07/30/16 at 02:00 Fluticasone Propionate (Flonase 0.05% Nasal) 1 spray BID NASAL Last administered on 08/03/16 09:10; Admin Dose 1 SPRAY; Start 07/30/16 at 09:00 Carvedilol (Coreg) 25 mg BID PO Last administered on 08/03/16 09:08; Admin Dose 25 MG; Start 07/30/16 at 09:00 Clopidogrel Bisulfate (plaVIX) 75 mg DAILY PO Last administered on 08/03/16 09 :07; Admin Dose 75 MG; Start 07/30/16 at 09:00 Atorvastatin Calcium (Lipitor) 40 mg DAILY@21 PO Last administered on 22:00; Admin Dose 40 MG; Start 07/30/16 at 21:00 Acetaminophen (Tylenol Tab) 650 mg Q6H PRN PO PAIN AND OR ELEVATED TEMP Last administered on 08/02/16 22:21; Admin Dose 650 MG; Start 07/29/16 at 23:00 Al Hydrox/Mg Hydrox/Simethicone (Mag-Al Plus) 30 ml Q6H PRN PO GASTROINTESTINAL UPSET; Start 07/29/16 at 23:00 Alprazolam (Xanax) 0.25 mg HS PRN PO INSOMNIA Last administered on 07/31/16 21 :29; Admin Dose 0.25 MG; Start 07/29/16 at 23:00 Aripiprazole (Abilify) 2 mg DAILY PO Last administered on 08/03/16 09:07; Admin Dose 2 MG; Start 07/30/16 at 09:00 Aspirin (Halfprin) 81 mg DAILY PO Last administered on 08/03/16 09:07; Admin Dose 81 MG; Start 07/30/16 at 09:00 Docusate Sodium (Colace) 100 mg BID PO Last administered on 08/03/16 09:09; Admin Dose 100 MG; Start 07/30/16 at 09:00 Senna (Senokot) 1 tab HS PO Last administered on 08/02/16 22:00; Admin Dose 1 TAB; Start 07/30/16 at 21:00 Lactulose (Enulose) 20 gm DAILY PRN PO CONSTIPATION Last administered on 09:14; Admin Dose 20 GM; Start 07/29/16 at 23:00 Bisacodyl (Dulcolax Supp) 10 mg DAILY PRN [place] CONSTIPATION; Start 07/29/16 at 23 :00 Miscellaneous Information (* Miscellaneous Pharmacy Order) Faslodex 500 mg IM onc... ONCE XX ; Start 08/03/16 at 11:30; Stop 08/03/16 at 21:00; Status REBEKAH AGEE MD Aug 03, 2016 12:00
[2016-08-03] MEDS: MEGESTROL (40 MG/ML) 10ML CUP PO SCH (12:08)
--- NOTE | 2016-08-03 17:36 | CONS ---
Date/Time of Note Date/Time of Note DATE: 08/03/16 TIME: 17:35 Assessment/Plan Assessment/Plan Chief Complaint/Hosp Course CKD ANEMIA METABOLIC ACIDOSIS BETTER S/P HIP SURGERY PLAN F/U BMP renal stable pt/ot Problems: Consultation Date/Type/Reason Admit Date/Time Jul 29, 2016 at 21:59 Type of Consultation: renal 24 HR Interval Summary Constitutional: no complaints Exam/Review of Systems Vital Signs Vitals Vital Signs Date Time Temp Pulse Resp B/P Pulse Ox O2 Delivery O2 Flow Rate FiO2 08/03/16 09:16 97.9 82 18 130/61 97 Room Air Intake and Output 08/02/16 08/02/16 08/03/16 15:00 23:00 07:00 Intake Total 1180 ml 765 ml 300 ml Output Total 200 ml 200 ml Balance 980 ml 565 ml 300 ml Exam Neck: supple Respiratory: clear to auscultation Cardiovascular: regular rate and rhythm Gastrointestinal: soft Results Result Diagram: 07/30/16 0615 08/03/16 0608 Results 24 hrs Laboratory Tests Test 08/02/16 20:44 08/03/16 02:29 08/03/16 06:08 08/03/16 07:11 Bedside Glucose 186 193 114 Anion Gap 21 H Blood Urea Nitrogen 48 H Calcium Level 8.9 Carbon Dioxide Level 18 L Chloride Level 108 Creatinine 2.16 H Glucose Level 121 Potassium Level 5.1 Sodium Level 142 Test 08/03/16 11:49 08/03/16 17:01 Bedside Glucose 156 147 Medications Medications Current Medications Sertraline HCl (Zoloft) 50 mg DAILY PO Last administered on 08/03/16 09:07; Admin Dose 50 MG; Start 07/30/16 at 09:00 Pantoprazole (Protonix Tab) 40 mg DAILY@06 PO Last administered on 08/03/16 05 :59; Admin Dose 40 MG; Start 07/30/16 at 06:00 Carbidopa/Levodopa (Sinemet (25/ 100)) 1 tab DAILY PO Last administered on 08/03 09:08; Admin Dose 1 TAB; Start 07/30/16 at 09:00 Loratadine (Claritin) 10 mg DAILY PO Last administered on 08/03/16 09:07; Admin Dose 10 MG; Start 07/30/16 at 09:00 Meclizine HCl (Antivert) 25 mg Q12H PRN PO DIZZINESS; Start 07/29/16 at 22:45 Miscellaneous Information 1 ea NOTE XX ; Start 07/29/16 at 22:45 Glucose (Glutose) 15 gm Q15M PRN PO DECREASED GLUCOSE; Start 07/29/16 at 22:45 Glucose (Glutose) 22.5 gm Q15M PRN PO DECREASED GLUCOSE; Start 07/29/16 at 22: 45 Dextrose (D50w Syringe) 25 ml Q15M PRN IV DECREASED GLUCOSE; Start 07/29/16 at 22:45 Dextrose (D50w Syringe) 50 ml Q15M PRN IV DECREASED GLUCOSE; Start 07/29/16 at 22:45 Glucagon (Glucagen) 1 mg Q15M PRN IM DECREASED GLUCOSE; Start 07/29/16 at 22:45 Glucose (Glutose) 15 gm Q15M PRN BUCCAL DECREASED GLUCOSE; Start 07/29/16 at 22 :45 Heparin Sodium (Porcine) (Heparin (5000 Units/0.5 ml)) 5,000 unit BID SC Last administered on 08/03/16 09:06; Admin Dose 5,000 UNIT; Start 07/30/16 at 09:00 Diagnostic Test (Pha) (Accucheck) 1 ea 02 XX ; Start 07/30/16 at 02:00 Fluticasone Propionate (Flonase 0.05% Nasal) 1 spray BID NASAL Last administered on 08/03/16 09:10; Admin Dose 1 SPRAY; Start 07/30/16 at 09:00 Carvedilol (Coreg) 25 mg BID PO Last administered on 08/03/16 09:08; Admin Dose 25 MG; Start 07/30/16 at 09:00 Clopidogrel Bisulfate (plaVIX) 75 mg DAILY PO Last administered on 08/03/16 09 :07; Admin Dose 75 MG; Start 07/30/16 at 09:00 Atorvastatin Calcium (Lipitor) 40 mg DAILY@21 PO Last administered on 22:00; Admin Dose 40 MG; Start 07/30/16 at 21:00 Acetaminophen (Tylenol Tab) 650 mg Q6H PRN PO PAIN AND OR ELEVATED TEMP Last administered on 08/02/16 22:21; Admin Dose 650 MG; Start 07/29/16 at 23:00 Al Hydrox/Mg Hydrox/Simethicone (Mag-Al Plus) 30 ml Q6H PRN PO GASTROINTESTINAL UPSET; Start 07/29/16 at 23:00 Alprazolam (Xanax) 0.25 mg HS PRN PO INSOMNIA Last administered on 07/31/16 21 :29; Admin Dose 0.25 MG; Start 07/29/16 at 23:00 Aripiprazole (Abilify) 2 mg DAILY PO Last administered on 08/03/16 09:07; Admin Dose 2 MG; Start 07/30/16 at 09:00 Aspirin (Halfprin) 81 mg DAILY PO Last administered on 08/03/16 09:07; Admin Dose 81 MG; Start 07/30/16 at 09:00 Docusate Sodium (Colace) 100 mg BID PO Last administered on 08/03/16 09:09; Admin Dose 100 MG; Start 07/30/16 at 09:00 Senna (Senokot) 1 tab HS PO Last administered on 08/02/16 22:00; Admin Dose 1 TAB; Start 07/30/16 at 21:00 Lactulose (Enulose) 20 gm DAILY PRN PO CONSTIPATION Last administered on 09:14; Admin Dose 20 GM; Start 07/29/16 at 23:00 Bisacodyl (Dulcolax Supp) 10 mg DAILY PRN [place] CONSTIPATION; Start 07/29/16 at 23 :00 PERRY ALVARES MD Aug 03, 2016 17:35
[2016-08-03 20:06] VITALS: BP 133/63; RESP 20
[2016-08-03] MEDS: SENNA TAB PO SCH (21:20)
[2016-08-03] MEDS: ATORVASTATIN 40 MG TAB PO SCH (21:20)
[2016-08-03] MEDS: ALPRAZOLAM 0.25 MG TAB PO PRN (21:51)
--- NOTE | 2016-08-04 00:41 | PN ---
DATE: 08/03/2016 SUBJECTIVE: The patient is stable this morning. No new events. I had a discussion with her outpat ient oncologist who recommended resumption of her Faslodex 500 mg IM once every month. This was res umed per his request. The patient currently remains stable. OBJECTIVE: VITAL SIGNS: Temperature 98, pulse is 82, blood pressure 130/61, O2 saturation 97% on room air. NECK: Supple. No JVD or lymphadenopathy. CARDIAC: S1, S2. No added sounds or murmurs. CHEST: Diminished air entry bilaterally. ABDOMEN: Soft, nontender. No guarding or rebound. EXTREMITIES: No cyanosis, clubbing, edema. NEUROLOGIC: Generalized weakness. LABORATORY DATA: CBC pending. Chemistry: BUN 48, creatinine 2.16. IMPRESSION: 1. Chronic kidney disease, currently stable. Followed by Dr. Shaikh. 2. History of ____ hip fracture status post hemiarthroplasty. 3. History of breast cancer with metastatic disease. PLAN: 1. Continue hormonal therapy with Faslodex. 2. Continue physical therapy. 3. Continue glycemic management. Dictated By: JEMIMA CASTORENA/FRANCIE Conf#: [id number] DID#: [id number]
[2016-08-04] MEDS: ACCUCHECK AT 2AM (Patients on SS coverage) XX SCH (02:00)
[2016-08-04] MEDS: LEVALBUTEROL (HFA) 15 GM INHALER INH SCH ×4 (02:00→20:00)
[2016-08-04] MEDS: PANTOPRAZOLE (EC) 40 MG TAB PO SCH (06:16)
[2016-08-04 07:00] VITALS: BP 119/56; RESP 18
[2016-08-04] MEDS: Insulin NOVOLOG SS MILD Algorithm (SS with meals and bedtime) SC SCH ×4 (07:05→21:00)
[2016-08-04] MEDS: ARIPIPRAZOLE 2 MG TAB PO SCH (09:06)
[2016-08-04] MEDS: FLUTICASONE 0.05% 16 GM NAS SPRAY NASAL SCH ×2 (09:06→21:12)
[2016-08-04] MEDS: SERTRALINE 50 MG TAB PO SCH (09:07)
[2016-08-04] MEDS: CARBIDOPA/LEVODOPA (25/100) TAB PO SCH (09:07)
[2016-08-04] MEDS: LORATADINE 10 MG TAB PO SCH (09:07)
[2016-08-04] MEDS: DOCUSATE SODIUM 100 MG CAP PO SCH ×2 (09:07→20:50)
[2016-08-04] MEDS: CLOPIDOGREL 75 MG TAB PO SCH (09:08)
[2016-08-04] MEDS: ASPIRIN (EC) 81 MG TAB PO SCH (09:08)
[2016-08-04] MEDS: HEPARIN 5,000 UNIT/0.5 ML SYG SC SCH ×2 (09:12→20:53)
[2016-08-04] MEDS: ACETAMINOPHEN 325 MG TAB PO PRN (09:20)
--- NOTE | 2016-08-04 12:43 | CONS ---
Date/Time of Note Date/Time of Note DATE: 08/04/16 TIME: 12:42 Consult Date/Type/Reason Admit Date/Time Jul 29, 2016 at 21:59 Type of Consultation: renal Subjective Headache this morning Objective pulm-cta max assist Vital Signs Date Time Temp Pulse Resp B/P Pulse Ox O2 Delivery O2 Flow Rate FiO2 08/04/16 07:00 98.5 86 18 119/56 95 08/03/16 09:16 Room Air Intake and Output 08/03/16 08/03/16 08/04/16 15:00 23:00 07:00 Intake Total 1460 ml 550 ml Output Total 740 ml Balance 720 ml 550 ml Results/Medications Result Diagram: 08/03/16 0608 Results 24 hrs Laboratory Tests Test 08/03/16 17:01 08/03/16 21:04 08/04/16 02:11 08/04/16 07:35 Bedside Glucose 147 208 148 132 Test 08/04/16 11:57 Bedside Glucose 170 Medications Current Medications Sertraline HCl (Zoloft) 50 mg DAILY PO Last administered on 08/04/16 09:07; Admin Dose 50 MG; Start 07/30/16 at 09:00 Pantoprazole (Protonix Tab) 40 mg DAILY@06 PO Last administered on 08/04/16 06 :16; Admin Dose 40 MG; Start 07/30/16 at 06:00 Carbidopa/Levodopa (Sinemet (25/ 100)) 1 tab DAILY PO Last administered on 08/04 09:07; Admin Dose 1 TAB; Start 07/30/16 at 09:00 Loratadine (Claritin) 10 mg DAILY PO Last administered on 08/04/16 09:07; Admin Dose 10 MG; Start 07/30/16 at 09:00 Meclizine HCl (Antivert) 25 mg Q12H PRN PO DIZZINESS; Start 07/29/16 at 22:45 Miscellaneous Information 1 ea NOTE XX ; Start 07/29/16 at 22:45 Glucose (Glutose) 15 gm Q15M PRN PO DECREASED GLUCOSE; Start 07/29/16 at 22:45 Glucose (Glutose) 22.5 gm Q15M PRN PO DECREASED GLUCOSE; Start 07/29/16 at 22: 45 Dextrose (D50w Syringe) 25 ml Q15M PRN IV DECREASED GLUCOSE; Start 07/29/16 at 22:45 Dextrose (D50w Syringe) 50 ml Q15M PRN IV DECREASED GLUCOSE; Start 07/29/16 at 22:45 Glucagon (Glucagen) 1 mg Q15M PRN IM DECREASED GLUCOSE; Start 07/29/16 at 22:45 Glucose (Glutose) 15 gm Q15M PRN BUCCAL DECREASED GLUCOSE; Start 07/29/16 at 22 :45 Heparin Sodium (Porcine) (Heparin (5000 Units/0.5 ml)) 5,000 unit BID SC Last administered on 08/04/16 09:12; Admin Dose 5,000 UNIT; Start 07/30/16 at 09:00 Diagnostic Test (Pha) (Accucheck) 1 ea 02 XX ; Start 07/30/16 at 02:00 Fluticasone Propionate (Flonase 0.05% Nasal) 1 spray BID NASAL Last administered on 08/04/16 09:06; Admin Dose 1 SPRAY; Start 07/30/16 at 09:00 Carvedilol (Coreg) 25 mg BID PO Last administered on 08/04/16 09:07; Admin Dose 25 MG; Start 07/30/16 at 09:00 Clopidogrel Bisulfate (plaVIX) 75 mg DAILY PO Last administered on 08/04/16 09 :08; Admin Dose 75 MG; Start 07/30/16 at 09:00 Atorvastatin Calcium (Lipitor) 40 mg DAILY@21 PO Last administered on 21:20; Admin Dose 40 MG; Start 07/30/16 at 21:00 Acetaminophen (Tylenol Tab) 650 mg Q6H PRN PO PAIN AND OR ELEVATED TEMP Last administered on 08/04/16 09:20; Admin Dose 650 MG; Start 07/29/16 at 23:00 Al Hydrox/Mg Hydrox/Simethicone (Mag-Al Plus) 30 ml Q6H PRN PO GASTROINTESTINAL UPSET; Start 07/29/16 at 23:00 Alprazolam (Xanax) 0.25 mg HS PRN PO INSOMNIA Last administered on 08/03/16 21 :51; Admin Dose 0.25 MG; Start 07/29/16 at 23:00 Aripiprazole (Abilify) 2 mg DAILY PO Last administered on 08/04/16 09:06; Admin Dose 2 MG; Start 07/30/16 at 09:00 Aspirin (Halfprin) 81 mg DAILY PO Last administered on 08/04/16 09:08; Admin Dose 81 MG; Start 07/30/16 at 09:00 Docusate Sodium (Colace) 100 mg BID PO Last administered on 08/04/16 09:07; Admin Dose 100 MG; Start 07/30/16 at 09:00 Senna (Senokot) 1 tab HS PO Last administered on 08/03/16 21:20; Admin Dose 1 TAB; Start 07/30/16 at 21:00 Lactulose (Enulose) 20 gm DAILY PRN PO CONSTIPATION Last administered on 09:14; Admin Dose 20 GM; Start 07/29/16 at 23:00 Bisacodyl (Dulcolax Supp) 10 mg DAILY PRN [place] CONSTIPATION; Start 07/29/16 at 23 :00 Assessment/Plan Additional Assessment/Plan Rehab- Right hip subcapital fracture status post hemiarthroplasty. Continue activities as tolerated Parkinson's ds Dysphagia - speech therapy History of breast cancer with bone metastases. Anemia. History of myocardial infarction and coronary artery bypass graft. Diabetes mellitus. Hypertension. Dyslipidemia. REBEKAH CRAFT MD Aug 04, 2016 12:43
--- NOTE | 2016-08-04 15:08 | PN ---
DATE: 08/04/2016 The patient remains stable overnight, no new events. PHYSICAL EXAMINATION: VITAL SIGNS: Temperature 98, pulse 86, blood pressure 119/56, O2 saturation 96% on room air. NECK: Supple. No JVD or lymphadenopathy. CARDIAC: S1, S2, no added sounds or murmurs. CHEST: Diminished air entry bilaterally. ABDOMEN: Soft, nontender. No guarding or rebound. EXTREMITIES: No cyanosis, clubbing, 1+ edema. NEUROLOGIC: Generalized weakness. LABORATORY DATA: White count 5.7, hemoglobin 9.3. Chemistry within normal limits. IMPRESSION: 1. Chronic kidney disease, currently stable. 2. History of hip fracture, status post hemiarthroplasty. 3. History of breast cancer with metastatic disease. PLAN: 1. Continue physical therapy. 2. Renal recommendations. 3. Pulmonary toilet. 4. Physical therapy. 5. Deep venous thrombosis and gastrointestinal prophylaxis. Dictated By: JEMIMA CASTORENA/FRANCIE Conf#: [id number] DID#: [id number]
[2016-08-04] MEDS ORDERED: TRIMETHOPRIM/SULFAMETHOX (DS) TAB PO SCH ×2 (18:00→21:00)
[2016-08-04 19:48] VITALS: BP 131/59; RESP 20
[2016-08-04] MEDS: ATORVASTATIN 40 MG TAB PO SCH (20:45)
[2016-08-04] MEDS: SENNA TAB PO SCH (20:50)
--- NOTE | 2016-08-04 23:16 | CONS ---
Date/Time of Note Date/Time of Note DATE: 08/04/16 TIME: 23:16 Assessment/Plan Assessment/Plan Chief Complaint/Hosp Course CKD ANEMIA METABOLIC ACIDOSIS BETTER S/P HIP SURGERY PLAN F/U BMP renal stable pt/ot Problems: Consultation Date/Type/Reason Admit Date/Time Jul 29, 2016 at 21:59 Type of Consultation: renal Exam/Review of Systems Vital Signs Vitals Vital Signs Date Time Temp Pulse Resp B/P Pulse Ox O2 Delivery O2 Flow Rate FiO2 08/04/16 19:48 99.2 91 20 131/59 98 08/03/16 09:16 Room Air Intake and Output 08/03/16 08/03/16 08/04/16 15:00 23:00 07:00 Intake Total 1460 ml 550 ml Output Total 740 ml Balance 720 ml 550 ml Exam Cardiovascular: regular rate and rhythm Gastrointestinal: soft Results Result Diagram: 08/03/16 0608 Results 24 hrs Laboratory Tests Test 08/04/16 02:11 08/04/16 07:35 08/04/16 11:57 08/04/16 17:09 Bedside Glucose 148 132 170 237 H Test 08/04/16 20:58 Bedside Glucose 172 Medications Medications Current Medications Sertraline HCl (Zoloft) 50 mg DAILY PO Last administered on 08/04/16 09:07; Admin Dose 50 MG; Start 07/30/16 at 09:00 Pantoprazole (Protonix Tab) 40 mg DAILY@06 PO Last administered on 08/04/16 06 :16; Admin Dose 40 MG; Start 07/30/16 at 06:00 Carbidopa/Levodopa (Sinemet (25/ 100)) 1 tab DAILY PO Last administered on 08/04 09:07; Admin Dose 1 TAB; Start 07/30/16 at 09:00 Loratadine (Claritin) 10 mg DAILY PO Last administered on 08/04/16 09:07; Admin Dose 10 MG; Start 07/30/16 at 09:00 Meclizine HCl (Antivert) 25 mg Q12H PRN PO DIZZINESS; Start 07/29/16 at 22:45 Miscellaneous Information 1 ea NOTE XX ; Start 07/29/16 at 22:45 Glucose (Glutose) 15 gm Q15M PRN PO DECREASED GLUCOSE; Start 07/29/16 at 22:45 Glucose (Glutose) 22.5 gm Q15M PRN PO DECREASED GLUCOSE; Start 07/29/16 at 22: 45 Dextrose (D50w Syringe) 25 ml Q15M PRN IV DECREASED GLUCOSE; Start 07/29/16 at 22:45 Dextrose (D50w Syringe) 50 ml Q15M PRN IV DECREASED GLUCOSE; Start 07/29/16 at 22:45 Glucagon (Glucagen) 1 mg Q15M PRN IM DECREASED GLUCOSE; Start 07/29/16 at 22:45 Glucose (Glutose) 15 gm Q15M PRN BUCCAL DECREASED GLUCOSE; Start 07/29/16 at 22 :45 Heparin Sodium (Porcine) (Heparin (5000 Units/0.5 ml)) 5,000 unit BID SC Last administered on 08/04/16 20:53; Admin Dose 5,000 UNIT; Start 07/30/16 at 09:00 Diagnostic Test (Pha) (Accucheck) 1 ea 02 XX ; Start 07/30/16 at 02:00 Fluticasone Propionate (Flonase 0.05% Nasal) 1 spray BID NASAL Last administered on 08/04/16 21:12; Admin Dose 1 SPRAY; Start 07/30/16 at 09:00 Carvedilol (Coreg) 25 mg BID PO Last administered on 08/04/16 20:50; Admin Dose 25 MG; Start 07/30/16 at 09:00 Clopidogrel Bisulfate (plaVIX) 75 mg DAILY PO Last administered on 08/04/16 09 :08; Admin Dose 75 MG; Start 07/30/16 at 09:00 Atorvastatin Calcium (Lipitor) 40 mg DAILY@21 PO Last administered on 20:45; Admin Dose 40 MG; Start 07/30/16 at 21:00 Acetaminophen (Tylenol Tab) 650 mg Q6H PRN PO PAIN AND OR ELEVATED TEMP Last administered on 08/04/16 09:20; Admin Dose 650 MG; Start 07/29/16 at 23:00 Al Hydrox/Mg Hydrox/Simethicone (Mag-Al Plus) 30 ml Q6H PRN PO GASTROINTESTINAL UPSET; Start 07/29/16 at 23:00 Alprazolam (Xanax) 0.25 mg HS PRN PO INSOMNIA Last administered on 08/03/16 21 :51; Admin Dose 0.25 MG; Start 07/29/16 at 23:00 Aripiprazole (Abilify) 2 mg DAILY PO Last administered on 08/04/16 09:06; Admin Dose 2 MG; Start 07/30/16 at 09:00 Aspirin (Halfprin) 81 mg DAILY PO Last administered on 08/04/16 09:08; Admin Dose 81 MG; Start 07/30/16 at 09:00 Docusate Sodium (Colace) 100 mg BID PO Last administered on 08/04/16 20:50; Admin Dose 100 MG; Start 07/30/16 at 09:00 Senna (Senokot) 1 tab HS PO Last administered on 08/04/16 20:50; Admin Dose 1 TAB; Start 07/30/16 at 21:00 Lactulose (Enulose) 20 gm DAILY PRN PO CONSTIPATION Last administered on 09:14; Admin Dose 20 GM; Start 07/29/16 at 23:00 Bisacodyl (Dulcolax Supp) 10 mg DAILY PRN [place] CONSTIPATION; Start 07/29/16 at 23 :00 Trimethoprim/ Sulfamethoxazole (Bactrim (Ds)) 1 tab Q24H PO Last administered on 08/04/16 17:40; Admin Dose 1 TAB; Start 08/04/16 at 18:00; Stop 08/08/16 at 18:01 PERRY ALVARES MD Aug 04, 2016 23:16
[2016-08-05] MEDS: ACCUCHECK AT 2AM (Patients on SS coverage) XX SCH (02:00)
[2016-08-05] MEDS: LEVALBUTEROL (HFA) 15 GM INHALER INH SCH (04:00)
[2016-08-05] MEDS: PANTOPRAZOLE (EC) 40 MG TAB PO SCH (06:06)
[2016-08-05 07:30] VITALS: BP 122/58; RESP 20
[2016-08-05 07:53] LABS: POTASSIUM 5.9 mmol/L (3.5-5.1)
[2016-08-05 07:56] LABS: CALCIUM 9.2 mg/dl (8.4-10.2); CREATININE 2.66 mg/dl (0.44-1.00)
[2016-08-05] MEDS: Insulin NOVOLOG SS MILD Algorithm (SS with meals and bedtime) SC SCH ×4 (09:41→21:00)
[2016-08-05] MEDS: FLUTICASONE 0.05% 16 GM NAS SPRAY NASAL SCH ×2 (09:42→20:58)
[2016-08-05] MEDS: CLOPIDOGREL 75 MG TAB PO SCH (09:42)
[2016-08-05] MEDS: DOCUSATE SODIUM 100 MG CAP PO SCH ×2 (09:42→20:58)
[2016-08-05] MEDS: ARIPIPRAZOLE 2 MG TAB PO SCH (09:42)
[2016-08-05] MEDS: SERTRALINE 50 MG TAB PO SCH (09:43)
[2016-08-05] MEDS: CARBIDOPA/LEVODOPA (25/100) TAB PO SCH (09:43)
[2016-08-05] MEDS: LORATADINE 10 MG TAB PO SCH (09:43)
[2016-08-05] MEDS: ASPIRIN (EC) 81 MG TAB PO SCH (09:43)
[2016-08-05] MEDS: HEPARIN 5,000 UNIT/0.5 ML SYG SC SCH ×2 (09:44→21:06)
[2016-08-05] MEDS: ACETAMINOPHEN 325 MG TAB PO PRN ×2 (10:00→20:58)
[2016-08-05] MEDS ORDERED: CEFTRIAXONE 1 GM/NS 50 ML IVPB SCH (12:00)
--- NOTE | 2016-08-05 12:20 | CONS ---
Date/Time of Note Date/Time of Note DATE: 08/05/16 TIME: 12:19 Consult Date/Type/Reason Admit Date/Time Jul 29, 2016 at 21:59 Type of Consultation: renal Subjective Reports some mouth discomfort Objective pulm-cta abd-soft mod assist 20 feet Vital Signs Date Time Temp Pulse Resp B/P Pulse Ox O2 Delivery O2 Flow Rate FiO2 08/05/16 07:30 99.5 89 20 122/58 95 08/03/16 09:16 Room Air Intake and Output 08/04/16 08/04/16 08/05/16 15:00 23:00 07:00 Intake Total 480 ml 240 ml 300 ml Output Total 350 ml 200 ml Balance 130 ml 40 ml 300 ml Results/Medications Result Diagram: 08/05/16622 Results 24 hrs Laboratory Tests Test 08/04/16 17:09 08/04/16 20:58 08/05/16 06:23 08/05/16 07:39 Bedside Glucose 237 H 172 141 Sodium Level 142 Potassium Level 5.9 H Chloride Level 109 Carbon Dioxide Level 18 L Anion Gap 21 H Blood Urea Nitrogen 56 H Creatinine 2.66 H Glucose Level 159 Calcium Level 9.2 Medications Current Medications Sertraline HCl (Zoloft) 50 mg DAILY PO Last administered on 08/05/16 09:43; Admin Dose 50 MG; Start 07/30/16 at 09:00 Pantoprazole (Protonix Tab) 40 mg DAILY@06 PO Last administered on 08/05/16 06 :06; Admin Dose 40 MG; Start 07/30/16 at 06:00 Carbidopa/Levodopa (Sinemet (25/ 100)) 1 tab DAILY PO Last administered on 08/05 09:43; Admin Dose 1 TAB; Start 07/30/16 at 09:00 Loratadine (Claritin) 10 mg DAILY PO Last administered on 08/05/16 09:43; Admin Dose 10 MG; Start 07/30/16 at 09:00 Meclizine HCl (Antivert) 25 mg Q12H PRN PO DIZZINESS; Start 07/29/16 at 22:45 Miscellaneous Information 1 ea NOTE XX ; Start 07/29/16 at 22:45 Glucose (Glutose) 15 gm Q15M PRN PO DECREASED GLUCOSE; Start 07/29/16 at 22:45 Glucose (Glutose) 22.5 gm Q15M PRN PO DECREASED GLUCOSE; Start 07/29/16 at 22: 45 Dextrose (D50w Syringe) 25 ml Q15M PRN IV DECREASED GLUCOSE; Start 07/29/16 at 22:45 Dextrose (D50w Syringe) 50 ml Q15M PRN IV DECREASED GLUCOSE; Start 07/29/16 at 22:45 Glucagon (Glucagen) 1 mg Q15M PRN IM DECREASED GLUCOSE; Start 07/29/16 at 22:45 Glucose (Glutose) 15 gm Q15M PRN BUCCAL DECREASED GLUCOSE; Start 07/29/16 at 22 :45 Heparin Sodium (Porcine) (Heparin (5000 Units/0.5 ml)) 5,000 unit BID SC Last administered on 08/05/16 09:44; Admin Dose 5,000 UNIT; Start 07/30/16 at 09:00 Diagnostic Test (Pha) (Accucheck) 1 ea 02 XX ; Start 07/30/16 at 02:00 Fluticasone Propionate (Flonase 0.05% Nasal) 1 spray BID NASAL Last administered on 08/05/16 09:42; Admin Dose 1 SPRAY; Start 07/30/16 at 09:00 Carvedilol (Coreg) 25 mg BID PO Last administered on 08/05/16 09:42; Admin Dose 25 MG; Start 07/30/16 at 09:00 Clopidogrel Bisulfate (plaVIX) 75 mg DAILY PO Last administered on 08/05/16 09 :42; Admin Dose 75 MG; Start 07/30/16 at 09:00 Atorvastatin Calcium (Lipitor) 40 mg DAILY@21 PO Last administered on 20:45; Admin Dose 40 MG; Start 07/30/16 at 21:00 Acetaminophen (Tylenol Tab) 650 mg Q6H PRN PO PAIN AND OR ELEVATED TEMP Last administered on 08/05/16 10:00; Admin Dose 650 MG; Start 07/29/16 at 23:00 Al Hydrox/Mg Hydrox/Simethicone (Mag-Al Plus) 30 ml Q6H PRN PO GASTROINTESTINAL UPSET; Start 07/29/16 at 23:00 Alprazolam (Xanax) 0.25 mg HS PRN PO INSOMNIA Last administered on 08/03/16 21 :51; Admin Dose 0.25 MG; Start 07/29/16 at 23:00 Aripiprazole (Abilify) 2 mg DAILY PO Last administered on 08/05/16 09:42; Admin Dose 2 MG; Start 07/30/16 at 09:00 Aspirin (Halfprin) 81 mg DAILY PO Last administered on 08/05/16 09:43; Admin Dose 81 MG; Start 07/30/16 at 09:00 Docusate Sodium (Colace) 100 mg BID PO Last administered on 08/05/16 09:42; Admin Dose 100 MG; Start 07/30/16 at 09:00 Senna (Senokot) 1 tab HS PO Last administered on 08/04/16 20:50; Admin Dose 1 TAB; Start 07/30/16 at 21:00 Lactulose (Enulose) 20 gm DAILY PRN PO CONSTIPATION Last administered on 09:14; Admin Dose 20 GM; Start 07/29/16 at 23:00 Bisacodyl 10 mg 10 mg DAILY PRN [place] CONSTIPATION; Start 07/29/16 at 23:00 Ceftriaxone Sodium (Rocephin) 50 ml @ 100 mls/hr Q24H IVPB ; Start 08/05/16 at 18:00; Stop 08/08/16 at 18:29 Assessment/Plan Additional Assessment/Plan Rehab- Right hip subcapital fracture status post hemiarthroplasty. Continue current treatment plan Parkinson's ds Dysphagia - speech therapy History of breast cancer with bone metastases. Anemia. History of myocardial infarction and coronary artery bypass graft. Diabetes mellitus. Hypertension. Dyslipidemia. REBEKAH CRAFT MD Aug 05, 2016 12:19
--- NOTE | 2016-08-05 13:18 | PN ---
DATE: 08/05/2016 SUBJECTIVE: Patient was complaining of toothache this morning, prescribed Orajel, otherwise remain s stable. VITAL SIGNS: Temperature 99, pulse 89, blood pressure 122/58, O2 saturation 96% on 2 liters. NECK: Supple. No JVD or lymphadenopathy. CARDIAC: S1, S2, no added sounds or murmurs. CHEST: Diminished air entry bilaterally. ABDOMEN: Soft, nontender. No guarding or rebound. EXTREMITIES: No cyanosis, clubbing, 1+ edema. NEUROLOGIC: Generalized weakness. LABORATORY DATA: Potassium 5.9, BUN 56, creatinine 2.66. IMPRESSION AND PLAN: 1. Recent mechanical fall, status post hemiarthroplasty. 2. Hyperkalemia, chronic kidney disease. 3. History of metastatic breast cancer. PLAN: 1. Continue renal recommendations for correction of hyperkalemia. 2. Continue his Bactrim for Escherichia coli urinary tract infection; however, given the worsening renal insufficiency, patient to be switched to Rocephin and Bactrim to be stopped. 3. Continue anti-Parkinson medications. 4. Continue Plavix. 5. DVT and GI prophylaxis. Dictated By: JEMIMA LUNA MD SV/FRANCIE Conf#: [id number] DID#: [id number]
[2016-08-05 19:47] VITALS: BP 117/56; RESP 20
[2016-08-05] MEDS: CEFTRIAXONE 1 GM/NS 50 ML IVPB SCH (20:58)
[2016-08-05] MEDS: BENZOCAINE 10% 7 GM GEL MM PRN (20:58)
[2016-08-05] MEDS: ATORVASTATIN 40 MG TAB PO SCH (20:58)
[2016-08-05] MEDS: ALPRAZOLAM 0.25 MG TAB PO PRN (20:58)
[2016-08-05] MEDS: SENNA TAB PO SCH (20:58)
--- NOTE | 2016-08-05 23:18 | CONS ---
Date/Time of Note Date/Time of Note DATE: 08/05/16 TIME: 23:17 Assessment/Plan Assessment/Plan Chief Complaint/Hosp Course CKD w raul ANEMIA METABOLIC ACIDOSIS hyperkalemia S/P HIP SURGERY PLAN F/U BMP kayexalate dcbactrim pt/ot Problems: Consultation Date/Type/Reason Admit Date/Time Jul 29, 2016 at 21:59 Type of Consultation: renal 24 HR Interval Summary Constitutional: no complaints Exam/Review of Systems Vital Signs Vitals Vital Signs Date Time Temp Pulse Resp B/P Pulse Ox O2 Delivery O2 Flow Rate FiO2 08/05/16 19:47 98.5 87 20 117/56 98 08/03/16 09:16 Room Air Intake and Output 08/04/16 08/04/16 08/05/16 15:00 23:00 07:00 Intake Total 480 ml 240 ml 300 ml Output Total 350 ml 200 ml Balance 130 ml 40 ml 300 ml Exam Respiratory: clear to auscultation Cardiovascular: regular rate and rhythm Gastrointestinal: soft Musculoskeletal: nl extremities to inspection Results Result Diagram: 08/05/16 0623 Results 24 hrs Laboratory Tests Test 08/05/16 06:23 08/05/16 07:39 08/05/16 12:06 08/05/16 17:28 Sodium Level 142 Potassium Level 5.9 H Chloride Level 109 Carbon Dioxide Level 18 L Anion Gap 21 H Blood Urea Nitrogen 56 H Creatinine 2.66 H Glucose Level 159 Calcium Level 9.2 Bedside Glucose 141 149 142 Test 08/05/16 20:22 Bedside Glucose 130 Medications Medications Current Medications Sertraline HCl (Zoloft) 50 mg DAILY PO Last administered on 08/05/16 09:43; Admin Dose 50 MG; Start 07/30/16 at 09:00 Pantoprazole (Protonix Tab) 40 mg DAILY@06 PO Last administered on 08/05/16 06 :06; Admin Dose 40 MG; Start 07/30/16 at 06:00 Carbidopa/Levodopa (Sinemet (25/ 100)) 1 tab DAILY PO Last administered on 08/05 09:43; Admin Dose 1 TAB; Start 07/30/16 at 09:00 Loratadine (Claritin) 10 mg DAILY PO Last administered on 08/05/16 09:43; Admin Dose 10 MG; Start 07/30/16 at 09:00 Meclizine HCl (Antivert) 25 mg Q12H PRN PO DIZZINESS; Start 07/29/16 at 22:45 Miscellaneous Information 1 ea NOTE XX ; Start 07/29/16 at 22:45 Glucose (Glutose) 15 gm Q15M PRN PO DECREASED GLUCOSE; Start 07/29/16 at 22:45 Glucose (Glutose) 22.5 gm Q15M PRN PO DECREASED GLUCOSE; Start 07/29/16 at 22: 45 Dextrose (D50w Syringe) 25 ml Q15M PRN IV DECREASED GLUCOSE; Start 07/29/16 at 22:45 Dextrose (D50w Syringe) 50 ml Q15M PRN IV DECREASED GLUCOSE; Start 07/29/16 at 22:45 Glucagon (Glucagen) 1 mg Q15M PRN IM DECREASED GLUCOSE; Start 07/29/16 at 22:45 Glucose (Glutose) 15 gm Q15M PRN BUCCAL DECREASED GLUCOSE; Start 07/29/16 at 22 :45 Heparin Sodium (Porcine) (Heparin (5000 Units/0.5 ml)) 5,000 unit BID SC Last administered on 08/05/16 21:06; Admin Dose 5,000 UNIT; Start 07/30/16 at 09:00 Diagnostic Test (Pha) (Accucheck) 1 ea 02 XX ; Start 07/30/16 at 02:00 Fluticasone Propionate (Flonase 0.05% Nasal) 1 spray BID NASAL Last administered on 08/05/16 20:58; Admin Dose 1 SPRAY; Start 07/30/16 at 09:00 Carvedilol (Coreg) 25 mg BID PO Last administered on 08/05/16 20:59; Admin Dose 25 MG; Start 07/30/16 at 09:00 Clopidogrel Bisulfate (plaVIX) 75 mg DAILY PO Last administered on 08/05/16 09 :42; Admin Dose 75 MG; Start 07/30/16 at 09:00 Atorvastatin Calcium (Lipitor) 40 mg DAILY@21 PO Last administered on 20:58; Admin Dose 40 MG; Start 07/30/16 at 21:00 Acetaminophen (Tylenol Tab) 650 mg Q6H PRN PO PAIN AND OR ELEVATED TEMP Last administered on 08/05/16 20:58; Admin Dose 650 MG; Start 07/29/16 at 23:00 Al Hydrox/Mg Hydrox/Simethicone (Mag-Al Plus) 30 ml Q6H PRN PO GASTROINTESTINAL UPSET; Start 07/29/16 at 23:00 Alprazolam (Xanax) 0.25 mg HS PRN PO INSOMNIA Last administered on 08/05/16 20 :58; Admin Dose 0.25 MG; Start 07/29/16 at 23:00 Aripiprazole (Abilify) 2 mg DAILY PO Last administered on 08/05/16 09:42; Admin Dose 2 MG; Start 07/30/16 at 09:00 Aspirin (Halfprin) 81 mg DAILY PO Last administered on 08/05/16 09:43; Admin Dose 81 MG; Start 07/30/16 at 09:00 Docusate Sodium (Colace) 100 mg BID PO Last administered on 08/05/16 20:58; Admin Dose 100 MG; Start 07/30/16 at 09:00 Senna (Senokot) 1 tab HS PO Last administered on 08/05/16 20:58; Admin Dose 1 TAB; Start 07/30/16 at 21:00 Lactulose (Enulose) 20 gm DAILY PRN PO CONSTIPATION Last administered on 09:14; Admin Dose 20 GM; Start 07/29/16 at 23:00 Bisacodyl 10 mg 10 mg DAILY PRN [place] CONSTIPATION; Start 07/29/16 at 23:00 Ceftriaxone Sodium (Rocephin) 50 ml @ 100 mls/hr Q24H IVPB Last administered on 08/05/16 20:58; Admin Dose 100 MLS/HR; Start 08/05/16 at 18:00; Stop at 18:29 Benzocaine (Orajel) 1 applic TID PRN MM for toothache Last administered on 08/05 20:58; Admin Dose 1 APPLIC; Start 08/05/16 at 13:00 PERRY ALVARES MD Aug 05, 2016 23:18
[2016-08-05] MEDS ORDERED: SODIUM CHLORIDE 0.45% 500 ML BAG IV* ONE (23:30)
[2016-08-05] MEDS ORDERED: NA POLYST SULFON 15 GM/60 ML BTL PO ONE (23:30)
--- NOTE | 2016-08-06 00:19 | CONS ---
DATE OF ADMISSION: 07/29/2016 DATE OF CONSULTATION: 08/05/2016 TYPE OF CONSULTATION: Psychological. REFERRING PHYSICIAN: Bessy Tom MD CONSULTING PSYCHOLOGIST: Angela Dobbins, PhD REASON FOR CONSULTATION: This consultation was requested by Dr. Anushka Tom, in order to evaluate the cognitive and emotional functioning of this patient related to her present medical condition. HISTORY OF PRESENT ILLNESS: The patient is a 80-year-old female. The patient has multiple medical problems. The patient did have a fall, where she had a right hip fracture. The patient underwent r ight hip hemiarthroplasty on 07/12/[address] Byrd. The patient did have some medical problems afte rward, but then was cleared medically, and transferred to the acute rehabilitation unit for comprehe nsive interdisciplinary rehabilitation care. The patient is motivated to get better. The patient i s concerned about her present condition and does want to return to her previous level of functioning . FAMILY/SOCIAL HISTORY: The patient lives with her son, his , and their 2 children, her 2 grandc tessa. The home has 3 steps to enter. The patient does want to return there upon discharge. MEDICATIONS: The patient is presently on: 1. Zoloft 50 mg daily. 2. Abilify 2 mg daily. 3. Xanax 0.25 mg at bedtime p.r.n. Reportedly, the patient has been taking these medications for quite some time, about 5 years. SUBSTANCE USE: The patient reports that she does not smoke. The patient reports that she does not drink alcohol or use other drugs. MENTAL STATUS EXAMINATION: APPEARANCE: The patient was seen in her wheelchair. She was of average height and weight. The pat ient is right-handed. The patient's sister, Erica, did help with interpretation because the patient speaks mainly Occ[place]. BEHAVIOR: The patient was cooperative during the consultation. The patient did attempt to answer a ll questions presented to her by the interviewer through her sister, who was interpreting living in [place]. MOOD AND AFFECT: The patient's mood appeared to be depressed. Affect does appear to be slightly an xious. The patient's sister does report that she has been depressed at least for the past 5 years, and been on medications for that time prior to even having the fall. PERCEPTION: The patient reports no hallucinations or delusions. The patient was alert to person, b ut not exactly to place, situation, and time. MEMORY AND COGNITION: The patient's memory and cognition appear to be somewhat impaired. She did h ave difficulty recalling recent and remote events. The patient was unable to say the name of the ho spital. The patient was not able to say the month. The patient was able to say that the year was " 17." The patient admits that she gets confused sometimes. INTELLIGENCE: Appears to fall in the average range when she is functioning well. INSIGHT: Fair. JUDGMENT: Fair. THOUGHT CONTENT: The patient is concerned about her present medical condition. The patient does wa nt to return to her previous level of functioning. The patient is having chemotherapy for breast ca ncer. The patient does not actually know that she has had cancer, according to her sister. DISCUSSION: The patient can likely benefit from some cognitive/behavioral psychotherapy while she i s on the unit. This psychotherapy would focus on her underlying level of depression and try to help her with her cognitive problems. DIAGNOSTIC IMPRESSION: 1. 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 2. 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 Thank you very much, Dr. Reveles, for referring this individual. Please do not hesitate to call if yo u have any additional questions. Dictated By: ANGELA DOBBINS PHD AL[facility]/FRANCIE Conf#: [id number] DID#: [id number]
[2016-08-06] MEDS: ACCUCHECK AT 2AM (Patients on SS coverage) XX SCH (02:00)
[2016-08-06] MEDS: LEVALBUTEROL (HFA) 15 GM INHALER INH SCH ×2 (02:00→20:00)
[2016-08-06] MEDS: PANTOPRAZOLE (EC) 40 MG TAB PO SCH (05:31)
[2016-08-06 06:45] LABS: ADD SCAN DIFF NO
[2016-08-06 06:51] LABS: BASOPHILS % 0.4 % (0.0-2.0); EOSINOPHILS # 0.3 10^3/ul (0.0-0.5); EOSINOPHILS % 6.6 % (0.0-7.0); HEMATOCRIT 28.2 % (37.0-47.0); HEMOGLOBIN 8.5 g/dl (12.0-16.0); LYMPHOCYTES # 1.2 10^3/ul (0.8-2.9); LYMPHOCYTES % 23.2 % (15.0-51.0); MEAN CORPUSCULAR HEMOGLOBIN 28.3 pg (29.0-33.0); MEAN CORPUSCULAR HGB CONC 30.1 g/dl (32.0-37.0); MEAN PLATELET VOLUME 10.6 fl (7.4-10.4); MONOCYTE # 0.5 10^3/ul (0.3-0.9); MONOCYTES % 10.3 % (0.0-11.0); NEUTROPHILS % 58.1 % (39.0-77.0); PLATELET COUNT 225 10^3/UL (140-415); RED CELL DISTRIBUTION WIDTH 16.4 % (11.5-14.5); WHITE BLOOD COUNT 5.1 10^3/ul (4.8-10.8)
[2016-08-06 07:04] LABS: POTASSIUM 5.7 mmol/L (3.5-5.1)
[2016-08-06] MEDS: Insulin NOVOLOG SS MILD Algorithm (SS with meals and bedtime) SC SCH ×4 (07:05→21:00)
[2016-08-06 07:07] LABS: CALCIUM 9.5 mg/dl (8.4-10.2); CREATININE 2.93 mg/dl (0.44-1.00); PHOSPHORUS 4.3 mg/dl (2.5-4.9)
[2016-08-06 07:08] LABS: MAGNESIUM 1.9 mg/dl (1.7-2.5)
[2016-08-06 07:30] VITALS: BP 125/60; RESP 18
[2016-08-06] MEDS: ARIPIPRAZOLE 2 MG TAB PO SCH (08:17)
[2016-08-06] MEDS: SERTRALINE 50 MG TAB PO SCH (08:17)
[2016-08-06] MEDS: CLOPIDOGREL 75 MG TAB PO SCH (08:17)
[2016-08-06] MEDS: FLUTICASONE 0.05% 16 GM NAS SPRAY NASAL SCH ×2 (08:17→20:26)
[2016-08-06] MEDS: CARBIDOPA/LEVODOPA (25/100) TAB PO SCH (08:17)
[2016-08-06] MEDS: LORATADINE 10 MG TAB PO SCH (08:18)
[2016-08-06] MEDS: ASPIRIN (EC) 81 MG TAB PO SCH (08:18)
[2016-08-06] MEDS: DOCUSATE SODIUM 100 MG CAP PO SCH ×2 (08:20→20:26)
[2016-08-06] MEDS: HEPARIN 5,000 UNIT/0.5 ML SYG SC SCH ×2 (08:24→20:38)
[2016-08-06] MEDS: BENZOCAINE 10% 7 GM GEL MM PRN (10:59)
[2016-08-06] MEDS: ACETAMINOPHEN 325 MG TAB PO PRN ×2 (11:02→23:43)
--- NOTE | 2016-08-06 13:30 | CONS ---
Date/Time of Note Date/Time of Note DATE: 08/06/16 TIME: 13:29 Consult Date/Type/Reason Admit Date/Time Jul 29, 2016 at 21:59 Type of Consultation: renal Subjective Patient up for activities Objective pulm-cta abd-soft Vital Signs Date Time Temp Pulse Resp B/P Pulse Ox O2 Delivery O2 Flow Rate FiO2 08/05/16 19:47 98.5 87 20 117/56 98 08/03/16 09:16 Room Air Intake and Output 08/05/16 08/05/16 08/06/16 15:00 23:00 07:00 Intake Total 500 ml 470 ml 360 ml Balance 500 ml 470 ml 360 ml Results/Medications Result Diagram: 08/06/16 0600 08/06/16 0600 Results 24 hrs Laboratory Tests Test 08/05/16 17:28 08/05/16 20:22 08/06/16 06:00 08/06/16 07:26 Bedside Glucose 142 130 136 White Blood Count 5.1 Red Blood Count 3.00 L Hemoglobin 8.5 L Hematocrit 28.2 L Mean Corpuscular Volume 94.0 Mean Corpuscular Hemoglobin 28.3 L Mean Corpuscular Hemoglobin Concent 30.1 L Red Cell Distribution Width 16.4 H Platelet Count 225 Mean Platelet Volume 10.6 H Neutrophils % 58.1 Lymphocytes % 23.2 Monocytes % 10.3 Eosinophils % 6.6 Basophils % 0.4 Nucleated Red Blood Cells % 0.0 Neutrophils # 3.0 Lymphocytes # 1.2 Monocytes # 0.5 Eosinophils # 0.3 Basophils # 0.0 Nucleated Red Blood Cells # 0.0 Sodium Level 143 Potassium Level 5.7 H Chloride Level 108 Carbon Dioxide Level 18 L Anion Gap 23 H Blood Urea Nitrogen 63 H Creatinine 2.93 H Glucose Level 132 Calcium Level 9.5 Phosphorus Level 4.3 Magnesium Level 1.9 Test 08/06/16 12:02 Bedside Glucose 182 Medications Current Medications Sertraline HCl (Zoloft) 50 mg DAILY PO Last administered on 08/06/16 08:17; Admin Dose 50 MG; Start 07/30/16 at 09:00 Pantoprazole (Protonix Tab) 40 mg DAILY@06 PO Last administered on 08/06/16 05 :31; Admin Dose 40 MG; Start 07/30/16 at 06:00 Carbidopa/Levodopa (Sinemet (25/ 100)) 1 tab DAILY PO Last administered on 08/06 08:17; Admin Dose 1 TAB; Start 07/30/16 at 09:00 Loratadine (Claritin) 10 mg DAILY PO Last administered on 08/06/16 08:18; Admin Dose 10 MG; Start 07/30/16 at 09:00 Meclizine HCl (Antivert) 25 mg Q12H PRN PO DIZZINESS; Start 07/29/16 at 22:45 Miscellaneous Information 1 ea NOTE XX ; Start 07/29/16 at 22:45 Glucose (Glutose) 15 gm Q15M PRN PO DECREASED GLUCOSE; Start 07/29/16 at 22:45 Glucose (Glutose) 22.5 gm Q15M PRN PO DECREASED GLUCOSE; Start 07/29/16 at 22: 45 Dextrose (D50w Syringe) 25 ml Q15M PRN IV DECREASED GLUCOSE; Start 07/29/16 at 22:45 Dextrose (D50w Syringe) 50 ml Q15M PRN IV DECREASED GLUCOSE; Start 07/29/16 at 22:45 Glucagon (Glucagen) 1 mg Q15M PRN IM DECREASED GLUCOSE; Start 07/29/16 at 22:45 Glucose (Glutose) 15 gm Q15M PRN BUCCAL DECREASED GLUCOSE; Start 07/29/16 at 22 :45 Heparin Sodium (Porcine) (Heparin (5000 Units/0.5 ml)) 5,000 unit BID SC Last administered on 08/06/16 08:24; Admin Dose 5,000 UNIT; Start 07/30/16 at 09:00 Diagnostic Test (Pha) (Accucheck) 1 ea 02 XX ; Start 07/30/16 at 02:00 Fluticasone Propionate (Flonase 0.05% Nasal) 1 spray BID NASAL Last administered on 08/06/16 08:17; Admin Dose 1 SPRAY; Start 07/30/16 at 09:00 Carvedilol (Coreg) 25 mg BID PO Last administered on 08/06/16 08:20; Admin Dose 25 MG; Start 07/30/16 at 09:00 Clopidogrel Bisulfate (plaVIX) 75 mg DAILY PO Last administered on 08/06/16 08 :17; Admin Dose 75 MG; Start 07/30/16 at 09:00 Atorvastatin Calcium (Lipitor) 40 mg DAILY@21 PO Last administered on 20:58; Admin Dose 40 MG; Start 07/30/16 at 21:00 Acetaminophen (Tylenol Tab) 650 mg Q6H PRN PO PAIN AND OR ELEVATED TEMP Last administered on 08/06/16 11:02; Admin Dose 650 MG; Start 07/29/16 at 23:00 Al Hydrox/Mg Hydrox/Simethicone (Mag-Al Plus) 30 ml Q6H PRN PO GASTROINTESTINAL UPSET; Start 07/29/16 at 23:00 Alprazolam (Xanax) 0.25 mg HS PRN PO INSOMNIA Last administered on 08/05/16 20 :58; Admin Dose 0.25 MG; Start 07/29/16 at 23:00 Aripiprazole (Abilify) 2 mg DAILY PO Last administered on 08/06/16 08:17; Admin Dose 2 MG; Start 07/30/16 at 09:00 Aspirin (Halfprin) 81 mg DAILY PO Last administered on 08/06/16 08:18; Admin Dose 81 MG; Start 07/30/16 at 09:00 Docusate Sodium (Colace) 100 mg BID PO Last administered on 08/05/16 20:58; Admin Dose 100 MG; Start 07/30/16 at 09:00 Senna (Senokot) 1 tab HS PO Last administered on 08/05/16 20:58; Admin Dose 1 TAB; Start 07/30/16 at 21:00 Lactulose (Enulose) 20 gm DAILY PRN PO CONSTIPATION Last administered on 09:14; Admin Dose 20 GM; Start 07/29/16 at 23:00 Bisacodyl 10 mg 10 mg DAILY PRN [place] CONSTIPATION; Start 07/29/16 at 23:00 Ceftriaxone Sodium (Rocephin) 50 ml @ 100 mls/hr Q24H IVPB Last administered on 08/05/16 20:58; Admin Dose 100 MLS/HR; Start 08/05/16 at 18:00; Stop at 18:29 Benzocaine (Orajel) 1 applic TID PRN MM for toothache Last administered on 08/06 10:59; Admin Dose 1 APPLIC; Start 08/05/16 at 13:00 Assessment/Plan Additional Assessment/Plan Rehab- Right hip subcapital fracture status post hemiarthroplasty. Continue rehab program and family education Parkinson's ds Dysphagia - speech therapy History of breast cancer with bone metastases. Anemia. History of myocardial infarction and coronary artery bypass graft. Diabetes mellitus. Hypertension. Dyslipidemia. REBEKAH CRAFT MD Aug 06, 2016 13:30
[2016-08-06] MEDS ORDERED: NA POLYST SULFON 15 GM/60 ML BTL PO ONE (17:00)
[2016-08-06] MEDS: SOD CHLORIDE 0.45% 1,000 ML IV SCH (17:40)
[2016-08-06] MEDS: CEFTRIAXONE 1 GM/NS 50 ML IVPB SCH (17:40)
[2016-08-06 20:00] VITALS: BP 125/60; PULSE 93; RESP 20
[2016-08-06] MEDS: ATORVASTATIN 40 MG TAB PO SCH (20:26)
[2016-08-06] MEDS: SENNA TAB PO SCH (20:28)
[2016-08-06] MEDS: ALPRAZOLAM 0.25 MG TAB PO PRN (20:30)
[2016-08-06 22:30] VITALS: BP 129/58; PULSE 96; RESP 18
--- NOTE | 2016-08-06 22:36 | CONS ---
Date/Time of Note Date/Time of Note DATE: 08/06/16 TIME: 22:35 Assessment/Plan Assessment/Plan Chief Complaint/Hosp Course CKD w raul ANEMIA METABOLIC ACIDOSIS hyperkalemia S/P HIP SURGERY PLAN F/U BMP kayexalate dcbactrim pt/ot Problems: Consultation Date/Type/Reason Admit Date/Time Jul 29, 2016 at 21:59 Type of Consultation: renal 24 HR Interval Summary Constitutional: requiring IVF Exam/Review of Systems Vital Signs Vitals Vital Signs Date Time Temp Pulse Resp B/P Pulse Ox O2 Delivery O2 Flow Rate FiO2 08/06/16 07:30 98.8 80 18 125/60 98 08/03/16 09:16 Room Air Intake and Output 08/05/16 08/05/16 08/06/16 15:00 23:00 07:00 Intake Total 500 ml 470 ml 360 ml Balance 500 ml 470 ml 360 ml Exam Respiratory: clear to auscultation Cardiovascular: regular rate and rhythm Gastrointestinal: soft Results Result Diagram: 08/06/16 0600 08/06/16 0600 Results 24 hrs Laboratory Tests Test 08/06/16 06:00 08/06/16 07:26 08/06/16 12:02 08/06/16 17:15 White Blood Count 5.1 Red Blood Count 3.00 L Hemoglobin 8.5 L Hematocrit 28.2 L Mean Corpuscular Volume 94.0 Mean Corpuscular Hemoglobin 28.3 L Mean Corpuscular Hemoglobin Concent 30.1 L Red Cell Distribution Width 16.4 H Platelet Count 225 Mean Platelet Volume 10.6 H Neutrophils % 58.1 Lymphocytes % 23.2 Monocytes % 10.3 Eosinophils % 6.6 Basophils % 0.4 Nucleated Red Blood Cells % 0.0 Neutrophils # 3.0 Lymphocytes # 1.2 Monocytes # 0.5 Eosinophils # 0.3 Basophils # 0.0 Nucleated Red Blood Cells # 0.0 Sodium Level 143 Potassium Level 5.7 H Chloride Level 108 Carbon Dioxide Level 18 L Anion Gap 23 H Blood Urea Nitrogen 63 H Creatinine 2.93 H Glucose Level 132 Calcium Level 9.5 Phosphorus Level 4.3 Magnesium Level 1.9 Bedside Glucose 136 182 156 Test 08/06/16 20:04 Bedside Glucose 150 Medications Medications Current Medications Sertraline HCl (Zoloft) 50 mg DAILY PO Last administered on 08/06/16t 08:17; Admin Dose 50 MG; Start 07/30/16 at 09:00 Pantoprazole (Protonix Tab) 40 mg DAILY@06 PO Last administered on 08/06/16 05 :31; Admin Dose 40 MG; Start 07/30/16 at 06:00 Carbidopa/Levodopa (Sinemet (25/ 100)) 1 tab DAILY PO Last administered on 08/06 08:17; Admin Dose 1 TAB; Start 07/30/16 at 09:00 Loratadine (Claritin) 10 mg DAILY PO Last administered on 08/06/16 08:18; Admin Dose 10 MG; Start 07/30/16 at 09:00 Meclizine HCl (Antivert) 25 mg Q12H PRN PO DIZZINESS; Start 07/29/16 at 22:45 Miscellaneous Information 1 ea NOTE XX ; Start 07/29/16 at 22:45 Glucose (Glutose) 15 gm Q15M PRN PO DECREASED GLUCOSE; Start 07/29/16 at 22:45 Glucose (Glutose) 22.5 gm Q15M PRN PO DECREASED GLUCOSE; Start 07/29/16 at 22: 45 Dextrose (D50w Syringe) 25 ml Q15M PRN IV DECREASED GLUCOSE; Start 07/29/16 at 22:45 Dextrose (D50w Syringe) 50 ml Q15M PRN IV DECREASED GLUCOSE; Start 07/29/16 at 22:45 Glucagon (Glucagen) 1 mg Q15M PRN IM DECREASED GLUCOSE; Start 07/29/16 at 22:45 Glucose (Glutose) 15 gm Q15M PRN BUCCAL DECREASED GLUCOSE; Start 07/29/16 at 22 :45 Heparin Sodium (Porcine) (Heparin (5000 Units/0.5 ml)) 5,000 unit BID SC Last administered on 08/06/16 20:38; Admin Dose 5,000 UNIT; Start 07/30/16 at 09:00 Diagnostic Test (Pha) (Accucheck) 1 ea 02 XX ; Start 07/30/16 at 02:00 Fluticasone Propionate (Flonase 0.05% Nasal) 1 spray BID NASAL Last administered on 08/06/16 20:26; Admin Dose 1 SPRAY; Start 07/30/16 at 09:00 Carvedilol (Coreg) 25 mg BID PO Last administered on 08/06/16 20:28; Admin Dose 25 MG; Start 07/30/16 at 09:00 Clopidogrel Bisulfate (plaVIX) 75 mg DAILY PO Last administered on 08/06/16 08 :17; Admin Dose 75 MG; Start 07/30/16 at 09:00 Atorvastatin Calcium (Lipitor) 40 mg DAILY@21 PO Last administered on 20:26; Admin Dose 40 MG; Start 07/30/16 at 21:00 Acetaminophen (Tylenol Tab) 650 mg Q6H PRN PO PAIN AND OR ELEVATED TEMP Last administered on 08/06/16 11:02; Admin Dose 650 MG; Start 07/29/16 at 23:00 Al Hydrox/Mg Hydrox/Simethicone (Mag-Al Plus) 30 ml Q6H PRN PO GASTROINTESTINAL UPSET; Start 07/29/16 at 23:00 Alprazolam (Xanax) 0.25 mg HS PRN PO INSOMNIA Last administered on 08/06/16 20 :30; Admin Dose 0.25 MG; Start 07/29/16 at 23:00 Aripiprazole (Abilify) 2 mg DAILY PO Last administered on 08/06/16 08:17; Admin Dose 2 MG; Start 07/30/16 at 09:00 Aspirin (Halfprin) 81 mg DAILY PO Last administered on 08/06/16 08:18; Admin Dose 81 MG; Start 07/30/16 at 09:00 Docusate Sodium (Colace) 100 mg BID PO Last administered on 08/05/16 20:58; Admin Dose 100 MG; Start 07/30/16 at 09:00 Senna (Senokot) 1 tab HS PO Last administered on 08/05/16 20:58; Admin Dose 1 TAB; Start 07/30/16 at 21:00 Lactulose (Enulose) 20 gm DAILY PRN PO CONSTIPATION Last administered on 09:14; Admin Dose 20 GM; Start 07/29/16 at 23:00 Bisacodyl 10 mg 10 mg DAILY PRN [place] CONSTIPATION; Start 07/29/16 at 23:00 Ceftriaxone Sodium (Rocephin) 50 ml @ 100 mls/hr Q24H IVPB Last administered on 08/06/16 17:40; Admin Dose 100 MLS/HR; Start 08/05/16 at 18:00; Stop at 18:29 Benzocaine 1 applic 1 applic TID PRN MM for toothache Last administered on 08/06 10:59; Admin Dose 1 APPLIC; Start 08/05/16 at 13:00 Sodium Chloride (1/2 NS) 1,000 ml @ 40 mls/hr Q24H IV Last administered on 17:40; Admin Dose 40 MLS/HR; Start 08/06/16 at 17:00 PERRY ALVARES MD Aug 06, 2016 22:36
--- NOTE | 2016-08-06 22:38 | CONS ---
Date/Time of Note Date/Time of Note DATE: 08/06/16 TIME: 22:37 Assessment/Plan Assessment/Plan Chief Complaint/Hosp Course CKD w raul ANEMIA METABOLIC ACIDOSIS hyperkalemia S/P HIP SURGERY PLAN F/U BMP kayexalate dcbactrim pt/ot iv fluid Problems: Consultation Date/Type/Reason Admit Date/Time Jul 29, 2016 at 21:59 Type of Consultation: renal 24 HR Interval Summary Constitutional: improved Exam/Review of Systems Vital Signs Vitals Vital Signs Date Time Temp Pulse Resp B/P Pulse Ox O2 Delivery O2 Flow Rate FiO2 08/06/16 07:30 98.8 80 18 125/60 98 08/03/16 09:16 Room Air Intake and Output 08/05/16 08/05/16 08/06/16 15:00 23:00 07:00 Intake Total 500 ml 470 ml 360 ml Balance 500 ml 470 ml 360 ml Exam Neck: supple Respiratory: clear to auscultation Cardiovascular: regular rate and rhythm Gastrointestinal: soft Results Result Diagram: 08/06/16 0600 08/06/16 0600 Results 24 hrs Laboratory Tests Test 08/06/16 06:00 08/06/16 07:26 08/06/16 12:02 08/06/16 17:15 White Blood Count 5.1 Red Blood Count 3.00 L Hemoglobin 8.5 L Hematocrit 28.2 L Mean Corpuscular Volume 94.0 Mean Corpuscular Hemoglobin 28.3 L Mean Corpuscular Hemoglobin Concent 30.1 L Red Cell Distribution Width 16.4 H Platelet Count 225 Mean Platelet Volume 10.6 H Neutrophils % 58.1 Lymphocytes % 23.2 Monocytes % 10.3 Eosinophils % 6.6 Basophils % 0.4 Nucleated Red Blood Cells % 0.0 Neutrophils # 3.0 Lymphocytes # 1.2 Monocytes # 0.5 Eosinophils # 0.3 Basophils # 0.0 Nucleated Red Blood Cells # 0.0 Sodium Level 143 Potassium Level 5.7 H Chloride Level 108 Carbon Dioxide Level 18 L Anion Gap 23 H Blood Urea Nitrogen 63 H Creatinine 2.93 H Glucose Level 132 Calcium Level 9.5 Phosphorus Level 4.3 Magnesium Level 1.9 Bedside Glucose 136 182 156 Test 08/06/16 20:04 Bedside Glucose 150 Medications Medications Current Medications Sertraline HCl (Zoloft) 50 mg DAILY PO Last administered on 08/06/16 08:17; Admin Dose 50 MG; Start 07/30/16 at 09:00 Pantoprazole (Protonix Tab) 40 mg DAILY@06 PO Last administered on 08/06/16 05 :31; Admin Dose 40 MG; Start 07/30/16 at 06:00 Carbidopa/Levodopa (Sinemet (25/ 100)) 1 tab DAILY PO Last administered on 08/06 08:17; Admin Dose 1 TAB; Start 07/30/16 at 09:00 Loratadine (Claritin) 10 mg DAILY PO Last administered on 08/06/16 08:18; Admin Dose 10 MG; Start 07/30/16 at 09:00 Meclizine HCl (Antivert) 25 mg Q12H PRN PO DIZZINESS; Start 07/29/16 at 22:45 Miscellaneous Information 1 ea NOTE XX ; Start 07/29/16 at 22:45 Glucose (Glutose) 15 gm Q15M PRN PO DECREASED GLUCOSE; Start 07/29/16 at 22:45 Glucose (Glutose) 22.5 gm Q15M PRN PO DECREASED GLUCOSE; Start 07/29/16 at 22: 45 Dextrose (D50w Syringe) 25 ml Q15M PRN IV DECREASED GLUCOSE; Start 07/29/16 at 22:45 Dextrose (D50w Syringe) 50 ml Q15M PRN IV DECREASED GLUCOSE; Start 07/29/16 at 22:45 Glucagon (Glucagen) 1 mg Q15M PRN IM DECREASED GLUCOSE; Start 07/29/16 at 22:45 Glucose (Glutose) 15 gm Q15M PRN BUCCAL DECREASED GLUCOSE; Start 07/29/16 at 22 :45 Heparin Sodium (Porcine) (Heparin (5000 Units/0.5 ml)) 5,000 unit BID SC Last administered on 08/06/16 20:38; Admin Dose 5,000 UNIT; Start 07/30/16 at 09:00 Diagnostic Test (Pha) (Accucheck) 1 ea 02 XX ; Start 07/30/16 at 02:00 Fluticasone Propionate (Flonase 0.05% Nasal) 1 spray BID NASAL Last administered on 08/06/16 20:26; Admin Dose 1 SPRAY; Start 07/30/16 at 09:00 Carvedilol (Coreg) 25 mg BID PO Last administered on 08/06/16 20:28; Admin Dose 25 MG; Start 07/30/16 at 09:00 Clopidogrel Bisulfate (plaVIX) 75 mg DAILY PO Last administered on 08/06/16 08 :17; Admin Dose 75 MG; Start 07/30/16 at 09:00 Atorvastatin Calcium (Lipitor) 40 mg DAILY@21 PO Last administered on 20:26; Admin Dose 40 MG; Start 07/30/16 at 21:00 Acetaminophen (Tylenol Tab) 650 mg Q6H PRN PO PAIN AND OR ELEVATED TEMP Last administered on 08/06/16 11:02; Admin Dose 650 MG; Start 07/29/16 at 23:00 Al Hydrox/Mg Hydrox/Simethicone (Mag-Al Plus) 30 ml Q6H PRN PO GASTROINTESTINAL UPSET; Start 07/29/16 at 23:00 Alprazolam (Xanax) 0.25 mg HS PRN PO INSOMNIA Last administered on 08/06/16 20 :30; Admin Dose 0.25 MG; Start 07/29/16 at 23:00 Aripiprazole (Abilify) 2 mg DAILY PO Last administered on 08/06/16 08:17; Admin Dose 2 MG; Start 07/30/16 at 09:00 Aspirin (Halfprin) 81 mg DAILY PO Last administered on 08/06/16 08:18; Admin Dose 81 MG; Start 07/30/16 at 09:00 Docusate Sodium (Colace) 100 mg BID PO Last administered on 08/05/16 20:58; Admin Dose 100 MG; Start 07/30/16 at 09:00 Senna (Senokot) 1 tab HS PO Last administered on 08/05/16 20:58; Admin Dose 1 TAB; Start 07/30/16 at 21:00 Lactulose (Enulose) 20 gm DAILY PRN PO CONSTIPATION Last administered on 09:14; Admin Dose 20 GM; Start 07/29/16 at 23:00 Bisacodyl 10 mg 10 mg DAILY PRN [place] CONSTIPATION; Start 07/29/16 at 23:00 Ceftriaxone Sodium (Rocephin) 50 ml @ 100 mls/hr Q24H IVPB Last administered on 08/06/16 17:40; Admin Dose 100 MLS/HR; Start 08/05/16 at 18:00; Stop at 18:29 Benzocaine 1 applic 1 applic TID PRN MM for toothache Last administered on 08/06 10:59; Admin Dose 1 APPLIC; Start 08/05/16 at 13:00 Sodium Chloride (1/2 NS) 1,000 ml @ 40 mls/hr Q24H IV Last administered on 17:40; Admin Dose 40 MLS/HR; Start 08/06/16 at 17:00 PERRY ALVARES MD Aug 06, 2016 22:38
[2016-08-07] MEDS: ACCUCHECK AT 2AM (Patients on SS coverage) XX SCH (02:00)
[2016-08-07] MEDS: LEVALBUTEROL (HFA) 15 GM INHALER INH SCH ×4 (02:00→20:03)
[2016-08-07] MEDS: PANTOPRAZOLE (EC) 40 MG TAB PO SCH (06:17)
[2016-08-07 07:09] LABS: ADD SCAN DIFF NO
[2016-08-07 07:14] LABS: BASOPHILS % 0.6 % (0.0-2.0); EOSINOPHILS # 0.4 10^3/ul (0.0-0.5); EOSINOPHILS % 7.4 % (0.0-7.0); HEMATOCRIT 26.2 % (37.0-47.0); MEAN CORPUSCULAR HEMOGLOBIN 28.8 pg (29.0-33.0); MEAN CORPUSCULAR HGB CONC 30.5 g/dl (32.0-37.0); MEAN CORPUSCULAR VOLUME 94.2 fl (82.0-101.0); MEAN PLATELET VOLUME 11.2 fl (7.4-10.4); MONOCYTE # 0.6 10^3/ul (0.3-0.9); MONOCYTES % 11.3 % (0.0-11.0); NEUTROPHIL # 2.9 10^3/ul (1.6-7.5); NEUTROPHILS % 59.3 % (39.0-77.0); PLATELET COUNT 190 10^3/UL (140-415); RED BLOOD COUNT 2.78 10^6/ul (4.20-5.40); RED CELL DISTRIBUTION WIDTH 16.4 % (11.5-14.5); WHITE BLOOD COUNT 4.9 10^3/ul (4.8-10.8)
[2016-08-07] MEDS: Insulin NOVOLOG SS MILD Algorithm (SS with meals and bedtime) SC SCH ×4 (07:30→20:26)
[2016-08-07 07:34] LABS: IRON 66 ug/dl (35-150); POTASSIUM 4.4 mmol/L (3.5-5.1)
[2016-08-07 07:37] LABS: CREATININE 2.31 mg/dl (0.44-1.00)
[2016-08-07 07:38] LABS: CALCIUM 8.4 mg/dl (8.4-10.2); MAGNESIUM 1.6 mg/dl (1.7-2.5); PHOSPHORUS 5.1 mg/dl (2.5-4.9)
[2016-08-07 07:44] LABS: TOTAL IRON BINDING CAPACITY 272 ug/dl (241-421)
[2016-08-07 07:49] VITALS: BP 176/80; RESP 18
[2016-08-07 07:54] VITALS: BP 117/59; RESP 18
[2016-08-07] MEDS: DOCUSATE SODIUM 100 MG CAP PO SCH ×2 (09:02→21:00)
[2016-08-07] MEDS: SERTRALINE 50 MG TAB PO SCH (09:02)
[2016-08-07] MEDS: CLOPIDOGREL 75 MG TAB PO SCH (09:02)
[2016-08-07] MEDS: ARIPIPRAZOLE 2 MG TAB PO SCH (09:02)
[2016-08-07] MEDS: LORATADINE 10 MG TAB PO SCH (09:02)
[2016-08-07] MEDS: CARBIDOPA/LEVODOPA (25/100) TAB PO SCH (09:02)
[2016-08-07] MEDS: FLUTICASONE 0.05% 16 GM NAS SPRAY NASAL SCH ×2 (09:02→20:03)
[2016-08-07] MEDS: ASPIRIN (EC) 81 MG TAB PO SCH (09:03)
[2016-08-07] MEDS: ACETAMINOPHEN 325 MG TAB PO PRN ×2 (09:03→20:04)
[2016-08-07] MEDS: HEPARIN 5,000 UNIT/0.5 ML SYG SC SCH ×2 (09:04→20:25)
--- NOTE | 2016-08-07 12:54 | CONS ---
Date/Time of Note Date/Time of Note DATE: 08/07/16 TIME: 12:53 Consult Date/Type/Reason Admit Date/Time Jul 29, 2016 at 21:59 Type of Consultation: renal Subjective Patient daughter concerned regarding neck pain Objective pulm- cta abd-soft Vital Signs Date Time Temp Pulse Resp B/P Pulse Ox O2 Delivery O2 Flow Rate FiO2 08/07/16 07:54 98.5 83 18 117/59 96 08/06/16 22:30 Room Air Intake and Output 08/06/16 08/06/16 08/07/16 15:00 23:00 07:00 Intake Total 510 ml 880 ml Output Total 1 ml Balance 509 ml 880 ml Results/Medications Result Diagram: 08/07/16 0606 08/07/16 0606 Results 24 hrs Laboratory Tests Test 08/06/16 17:15 08/06/16 20:04 08/07/16 06:06 08/07/16 07:40 Bedside Glucose 156 150 123 White Blood Count 4.9 Red Blood Count 2.78 L Hemoglobin 8.0 L Hematocrit 26.2 L Mean Corpuscular Volume 94.2 Mean Corpuscular Hemoglobin 28.8 L Mean Corpuscular Hemoglobin Concent 30.5 L Red Cell Distribution Width 16.4 H Platelet Count 190 Mean Platelet Volume 11.2 H Neutrophils % 59.3 Lymphocytes % 20.0 Monocytes % 11.3 H Eosinophils % 7.4 H Basophils % 0.6 Nucleated Red Blood Cells % 0.0 Neutrophils # 2.9 Lymphocytes # 1.0 Monocytes # 0.6 Eosinophils # 0.4 Basophils # 0.0 Nucleated Red Blood Cells # 0.0 Sodium Level 143 Potassium Level 4.4 Chloride Level 107 Carbon Dioxide Level 19 L Anion Gap 21 H Blood Urea Nitrogen 56 H Creatinine 2.31 H Glucose Level 120 Calcium Level 8.4 Phosphorus Level 5.1 H Magnesium Level 1.6 L Iron Level 66 Total Iron Binding Capacity 272 Percent Iron Saturation 24 Test 08/07/16 12:06 Bedside Glucose 193 Medications Current Medications Sertraline HCl (Zoloft) 50 mg DAILY PO Last administered on 08/07/16 09:02; Admin Dose 50 MG; Start 07/30/16 at 09:00 Pantoprazole (Protonix Tab) 40 mg DAILY@06 PO Last administered on 08/07/16 06 :17; Admin Dose 40 MG; Start 07/30/16 at 06:00 Carbidopa/Levodopa (Sinemet (25/ 100)) 1 tab DAILY PO Last administered on 08/07 09:02; Admin Dose 1 TAB; Start 07/30/16 at 09:00 Loratadine (Claritin) 10 mg DAILY PO Last administered on 08/07/16 09:02; Admin Dose 10 MG; Start 07/30/16 at 09:00 Meclizine HCl (Antivert) 25 mg Q12H PRN PO DIZZINESS; Start 07/29/16 at 22:45 Miscellaneous Information 1 ea NOTE XX ; Start 07/29/16 at 22:45 Glucose (Glutose) 15 gm Q15M PRN PO DECREASED GLUCOSE; Start 07/29/16 at 22:45 Glucose (Glutose) 22.5 gm Q15M PRN PO DECREASED GLUCOSE; Start 07/29/16 at 22: 45 Dextrose (D50w Syringe) 25 ml Q15M PRN IV DECREASED GLUCOSE; Start 07/29/16 at 22:45 Dextrose (D50w Syringe) 50 ml Q15M PRN IV DECREASED GLUCOSE; Start 07/29/16 at 22:45 Glucagon (Glucagen) 1 mg Q15M PRN IM DECREASED GLUCOSE; Start 07/29/16 at 22:45 Glucose (Glutose) 15 gm Q15M PRN BUCCAL DECREASED GLUCOSE; Start 07/29/16 at 22 :45 Heparin Sodium (Porcine) (Heparin (5000 Units/0.5 ml)) 5,000 unit BID SC Last administered on 08/07/16 09:04; Admin Dose 5,000 UNIT; Start 07/30/16 at 09:00 Diagnostic Test (Pha) (Accucheck) 1 ea 02 XX ; Start 07/30/16 at 02:00 Fluticasone Propionate (Flonase 0.05% Nasal) 1 spray BID NASAL Last administered on 08/07/16 09:02; Admin Dose 1 SPRAY; Start 07/30/16 at 09:00 Carvedilol (Coreg) 25 mg BID PO Last administered on 08/06/16 20:28; Admin Dose 25 MG; Start 07/30/16 at 09:00 Clopidogrel Bisulfate (plaVIX) 75 mg DAILY PO Last administered on 08/07/16 09 :02; Admin Dose 75 MG; Start 07/30/16 at 09:00 Atorvastatin Calcium (Lipitor) 40 mg DAILY@21 PO Last administered on 20:26; Admin Dose 40 MG; Start 07/30/16 at 21:00 Acetaminophen (Tylenol Tab) 650 mg Q6H PRN PO PAIN AND OR ELEVATED TEMP Last administered on 08/07/16 09:03; Admin Dose 650 MG; Start 07/29/16 at 23:00 Al Hydrox/Mg Hydrox/Simethicone (Mag-Al Plus) 30 ml Q6H PRN PO GASTROINTESTINAL UPSET; Start 07/29/16 at 23:00 Alprazolam (Xanax) 0.25 mg HS PRN PO INSOMNIA Last administered on 08/06/16 20 :30; Admin Dose 0.25 MG; Start 07/29/16 at 23:00 Aripiprazole (Abilify) 2 mg DAILY PO Last administered on 08/07/16 09:02; Admin Dose 2 MG; Start 07/30/16 at 09:00 Aspirin (Halfprin) 81 mg DAILY PO Last administered on 08/07/16 09:03; Admin Dose 81 MG; Start 07/30/16 at 09:00 Docusate Sodium (Colace) 100 mg BID PO Last administered on 08/07/16 09:02; Admin Dose 100 MG; Start 07/30/16 at 09:00 Senna (Senokot) 1 tab HS PO Last administered on 08/05/16 20:58; Admin Dose 1 TAB; Start 07/30/16 at 21:00 Lactulose (Enulose) 20 gm DAILY PRN PO CONSTIPATION Last administered on 09:14; Admin Dose 20 GM; Start 07/29/16 at 23:00 Bisacodyl 10 mg 10 mg DAILY PRN [place] CONSTIPATION; Start 07/29/16 at 23:00 Ceftriaxone Sodium (Rocephin) 50 ml @ 100 mls/hr Q24H IVPB Last administered on 08/06/16 17:40; Admin Dose 100 MLS/HR; Start 08/05/16 at 18:00; Stop at 18:29 Benzocaine 1 applic 1 applic TID PRN MM for toothache Last administered on 08/06 10:59; Admin Dose 1 APPLIC; Start 08/05/16 at 13:00 Sodium Chloride (1/2 NS) 1,000 ml @ 40 mls/hr Q24H IV Last administered on t 17:40; Admin Dose 40 MLS/HR; Start 08/06/16 at 17:00 Assessment/Plan Additional Assessment/Plan Rehab- Right hip subcapital fracture status post hemiarthroplasty. Continue rehab activities as tolerated Neck- MRI of neck. Patient with h.o. of bony mets from breast Ca Parkinson's ds Dysphagia - speech therapy History of breast cancer with bone metastases. Anemia. History of myocardial infarction and coronary artery bypass graft. Diabetes mellitus. Hypertension. Dyslipidemia. REBEKAH CRAFT MD Aug 07, 2016 12:54
--- NOTE | 2016-08-07 15:21 | PN ---
DATE: 08/07/2016 MEDICINE FOLLOWUP SUBJECTIVE: The patient is stable this morning. Denies any toothache. Denies any neck pain. PHYSICAL EXAMINATION: VITAL SIGNS: Temperature 98, pulse 83, blood pressure 117/59, O2 saturation 96% on room air. NECK: Supple. No JVD or lymphadenopathy. CARDIAC: S1, S2, no added sounds or murmurs. CHEST: Diminished air entry bilaterally. ABDOMEN: Soft, nontender. No guarding or rebound. EXTREMITIES: No cyanosis, clubbing, edema. NEUROLOGIC: Generalized weakness. LABORATORY DATA: White count 4.6, hemoglobin 8, platelets of 190. BUN 56, creatinine 2.31. IMPRESSION: 1. History of metastatic breast cancer. 2. Renal insufficiency. 3. Recent urinary tract infection. PLAN: 1. Case was discussed with the patient's primary oncologist, Dr. Morejon. I will request MRI of t he neck to evaluate existing metastatic disease. 2. Continue physical therapy. 3. Continue with DVT and GI prophylaxis. Dictated By: JEMIMA CASTORENA/FRANCIE Conf#: [id number] DID#: [id number]
[2016-08-07] MEDS: SOD CHLORIDE 0.45% 1,000 ML IV SCH (17:25)
[2016-08-07] MEDS: CEFTRIAXONE 1 GM/NS 50 ML IVPB SCH (17:25)
[2016-08-07] MEDS ORDERED: MAGNESIUM SULFATE 4 GM in SOD CHLORIDE 0.9% 100 ML IV ONE (18:00)
--- NOTE | 2016-08-07 18:00 | CONS ---
Date/Time of Note Date/Time of Note DATE: 08/07/16 TIME: 18:00 Assessment/Plan Assessment/Plan Chief Complaint/Hosp Course CKD w raul ANEMIA METABOLIC ACIDOSIS hyperkalemia S/P HIP SURGERY PLAN F/U BMP kayexalate dcbactrim pt/ot iv fluid ck bmp Problems: Consultation Date/Type/Reason Admit Date/Time Jul 29, 2016 at 21:59 Type of Consultation: renal 24 HR Interval Summary Constitutional: improved Exam/Review of Systems Vital Signs Vitals Vital Signs Date Time Temp Pulse Resp B/P Pulse Ox O2 Delivery O2 Flow Rate FiO2 08/07/16 07:54 98.5 83 18 117/59 96 08/06/16 22:30 Room Air Intake and Output 08/06/16 08/06/16 08/07/16 15:00 23:00 07:00 Intake Total 510 ml 880 ml Output Total 1 ml Balance 509 ml 880 ml Exam Cardiovascular: regular rate and rhythm Gastrointestinal: soft Musculoskeletal: nl extremities to inspection Results Result Diagram: 08/07/16 0606 08/07/16 0606 Results 24 hrs Laboratory Tests Test 08/06/16 20:04 08/07/16 06:06 08/07/16 07:40 08/07/16 12:06 Bedside Glucose 150 123 193 White Blood Count 4.9 Red Blood Count 2.78 L Hemoglobin 8.0 L Hematocrit 26.2 L Mean Corpuscular Volume 94.2 Mean Corpuscular Hemoglobin 28.8 L Mean Corpuscular Hemoglobin Concent 30.5 L Red Cell Distribution Width 16.4 H Platelet Count 190 Mean Platelet Volume 11.2 H Neutrophils % 59.3 Lymphocytes % 20.0 Monocytes % 11.3 H Eosinophils % 7.4 H Basophils % 0.6 Nucleated Red Blood Cells % 0.0 Neutrophils # 2.9 Lymphocytes # 1.0 Monocytes # 0.6 Eosinophils # 0.4 Basophils # 0.0 Nucleated Red Blood Cells # 0.0 Sodium Level 143 Potassium Level 4.4 Chloride Level 107 Carbon Dioxide Level 19 L Anion Gap 21 H Blood Urea Nitrogen 56 H Creatinine 2.31 H Glucose Level 120 Calcium Level 8.4 Phosphorus Level 5.1 H Magnesium Level 1.6 L Iron Level 66 Total Iron Binding Capacity 272 Percent Iron Saturation 24 Test 08/07/16 16:56 Bedside Glucose 141 Medications Medications Current Medications Sertraline HCl (Zoloft) 50 mg DAILY PO Last administered on 08/07/16 09:02; Admin Dose 50 MG; Start 07/30/16 at 09:00 Pantoprazole (Protonix Tab) 40 mg DAILY@06 PO Last administered on 08/07/16 06 :17; Admin Dose 40 MG; Start 07/30/16 at 06:00 Carbidopa/Levodopa (Sinemet (25/ 100)) 1 tab DAILY PO Last administered on 08/07 09:02; Admin Dose 1 TAB; Start 07/30/16 at 09:00 Loratadine (Claritin) 10 mg DAILY PO Last administered on 08/07/16 09:02; Admin Dose 10 MG; Start 07/30/16 at 09:00 Meclizine HCl (Antivert) 25 mg Q12H PRN PO DIZZINESS; Start 07/29/16 at 22:45 Miscellaneous Information 1 ea NOTE XX ; Start 07/29/16 at 22:45 Glucose (Glutose) 15 gm Q15M PRN PO DECREASED GLUCOSE; Start 07/29/16 at 22:45 Glucose (Glutose) 22.5 gm Q15M PRN PO DECREASED GLUCOSE; Start 07/29/16 at 22: 45 Dextrose (D50w Syringe) 25 ml Q15M PRN IV DECREASED GLUCOSE; Start 07/29/16 at 22:45 Dextrose (D50w Syringe) 50 ml Q15M PRN IV DECREASED GLUCOSE; Start 07/29/16 at 22:45 Glucagon (Glucagen) 1 mg Q15M PRN IM DECREASED GLUCOSE; Start 07/29/16 at 22:45 Glucose (Glutose) 15 gm Q15M PRN BUCCAL DECREASED GLUCOSE; Start 07/29/16 at 22 :45 Heparin Sodium (Porcine) (Heparin (5000 Units/0.5 ml)) 5,000 unit BID SC Last administered on 08/07/16 09:04; Admin Dose 5,000 UNIT; Start 07/30/16 at 09:00 Diagnostic Test (Pha) (Accucheck) 1 ea 02 XX ; Start 07/30/16 at 02:00 Fluticasone Propionate (Flonase 0.05% Nasal) 1 spray BID NASAL Last administered on 08/07/16 09:02; Admin Dose 1 SPRAY; Start 07/30/16 at 09:00 Carvedilol (Coreg) 25 mg BID PO Last administered on 08/07/16 09:00; Admin Dose 25 MG; Start 07/30/16 at 09:00 Clopidogrel Bisulfate (plaVIX) 75 mg DAILY PO Last administered on 08/07/16 09 :02; Admin Dose 75 MG; Start 07/30/16 at 09:00 Atorvastatin Calcium (Lipitor) 40 mg DAILY@21 PO Last administered on 20:26; Admin Dose 40 MG; Start 07/30/16 at 21:00 Acetaminophen (Tylenol Tab) 650 mg Q6H PRN PO PAIN AND OR ELEVATED TEMP Last administered on 08/07/16 09:03; Admin Dose 650 MG; Start 07/29/16 at 23:00 Al Hydrox/Mg Hydrox/Simethicone (Mag-Al Plus) 30 ml Q6H PRN PO GASTROINTESTINAL UPSET; Start 07/29/16 at 23:00 Alprazolam (Xanax) 0.25 mg HS PRN PO INSOMNIA Last administered on 08/06/16 20 :30; Admin Dose 0.25 MG; Start 07/29/16 at 23:00 Aripiprazole (Abilify) 2 mg DAILY PO Last administered on 08/07/16 09:02; Admin Dose 2 MG; Start 07/30/16 at 09:00 Aspirin (Halfprin) 81 mg DAILY PO Last administered on 08/07/16 09:03; Admin Dose 81 MG; Start 07/30/16 at 09:00 Docusate Sodium (Colace) 100 mg BID PO Last administered on 08/07/16 09:02; Admin Dose 100 MG; Start 07/30/16 at 09:00 Senna (Senokot) 1 tab HS PO Last administered on 08/05/16 20:58; Admin Dose 1 TAB; Start 07/30/16 at 21:00 Lactulose (Enulose) 20 gm DAILY PRN PO CONSTIPATION Last administered on 09:14; Admin Dose 20 GM; Start 07/29/16 at 23:00 Bisacodyl 10 mg 10 mg DAILY PRN [place] CONSTIPATION; Start 07/29/16 at 23:00 Ceftriaxone Sodium (Rocephin) 50 ml @ 100 mls/hr Q24H IVPB Last administered on 08/07/16 17:25; Admin Dose 100 MLS/HR; Start 08/05/16 at 18:00; Stop at 18:29 Benzocaine 1 applic 1 applic TID PRN MM for toothache Last administered on 08/06 10:59; Admin Dose 1 APPLIC; Start 08/05/16 at 13:00 Sodium Chloride (1/2 NS) 1,000 ml @ 40 mls/hr Q24H IV Last administered on 17:25; Admin Dose 40 MLS/HR; Start 08/06/16 at 17:00 PERRY ALVARES MD Aug 07, 2016 18:00
[2016-08-07 19:53] VITALS: BP 124/60; RESP 20
[2016-08-07] MEDS: ALPRAZOLAM 0.25 MG TAB PO PRN (20:05)
[2016-08-07] MEDS: ATORVASTATIN 40 MG TAB PO SCH (20:05)
[2016-08-07] MEDS: SENNA TAB PO SCH (21:00)
[2016-08-08] MEDS: LEVALBUTEROL (HFA) 15 GM INHALER INH SCH ×4 (01:52→20:29)
[2016-08-08] MEDS: ACCUCHECK AT 2AM (Patients on SS coverage) XX SCH (01:52)
[2016-08-08] MEDS: PANTOPRAZOLE (EC) 40 MG TAB PO SCH (05:48)
[2016-08-08 06:56] LABS: POTASSIUM 4.9 mmol/L (3.5-5.1)
[2016-08-08 06:59] LABS: CALCIUM 8.3 mg/dl (8.4-10.2); CREATININE 2.11 mg/dl (0.44-1.00)
[2016-08-08] MEDS: Insulin NOVOLOG SS MILD Algorithm (SS with meals and bedtime) SC SCH ×4 (07:05→20:43)
[2016-08-08 08:00] VITALS: BP 119/58; RESP 15
[2016-08-08] MEDS: FLUTICASONE 0.05% 16 GM NAS SPRAY NASAL SCH ×2 (10:07→20:29)
[2016-08-08] MEDS: ARIPIPRAZOLE 2 MG TAB PO SCH (10:09)
[2016-08-08] MEDS: CLOPIDOGREL 75 MG TAB PO SCH (10:09)
[2016-08-08] MEDS: CARBIDOPA/LEVODOPA (25/100) TAB PO SCH (10:09)
[2016-08-08] MEDS: ASPIRIN (EC) 81 MG TAB PO SCH (10:09)
[2016-08-08] MEDS: DOCUSATE SODIUM 100 MG CAP PO SCH ×2 (10:09→20:28)
[2016-08-08] MEDS: LORATADINE 10 MG TAB PO SCH (10:11)
[2016-08-08] MEDS: SERTRALINE 50 MG TAB PO SCH (10:11)
[2016-08-08] MEDS: HEPARIN 5,000 UNIT/0.5 ML SYG SC SCH ×2 (10:13→20:42)
[2016-08-08] MEDS: ACETAMINOPHEN 325 MG TAB PO PRN ×2 (10:28→20:28)
[2016-08-08] MEDS: LACTULOSE 30ML CUP PO PRN (13:16)
--- NOTE | 2016-08-08 14:14 | PN ---
Date/Time of Note Date/Time of Note DATE: 08/08/16 TIME: 14:08 Assessment/Plan VTE Prophylaxis VTE Prophylaxis Intervention: heparin Lines/Catheters IV Catheter Type (from Nrsg): Peripheral IV Urinary Cath still in place: No Assessment/Plan Assessment/Plan 1. Right hip nondisplaced subcapital fracture status post hip hemiarthroplasty. With impaired mobility/gait/ADLs. Continue PT/OT. Min assist for bed mobility and transfers. 2. History of breast cancer with metastases. With neck pain- Follow up MRI cervical spine results. 3. Parkinson's disease. Continue sinemet. 4. Dysphagia. Continue speech therapy 5.Anemia. Monitor hemoglobin/hematocrit. 6. CAD with history of myocardial infarction. Continue medical management. 7. Diabetes mellitus. Blood sugars controlled. Continue medical management. 8. Hypertension. BP controlled. Continue medical management. 9. Dyslipidemia. Continue statin. 10. Acute on chronic kidney disease. Managed per nephrology.Monitor renal function. 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 Reports minimal neck and right hip pain currently. ROS: Denies chest pain, no shortness of breath, no abdominal pain, no nausea, no chills, no headache, no dizziness. Exam/Review of Systems Vital Signs Vitals Vital Signs Date Time Temp Pulse Resp B/P Pulse Ox O2 Delivery O2 Flow Rate FiO2 08/08/16 08:00 99.1 86 15 119/58 98 08/06/16 22:30 Room Air Intake and Output 08/07/16 08/07/16 08/08/16 15:00 23:00 07:00 Intake Total 480 ml 740 ml 908 ml Output Total 400 ml 200 ml 700 ml Balance 80 ml 540 ml 208 ml Exam General: Awake, alert, no acute distress CV: Regular rate, s1s2 Lungs: Symmetrical air entry bilaterally, no wheezing Abdomen soft, nontender Extremities without cyanosis, no new swelling Neuro: Follows simple commands. Wiggles toes on the right. No sensory changes. Results Result Diagram: 08/07/16 0606 08/08/16 0605 Results 24 hrs Laboratory Tests Test 08/07/16 16:56 08/07/16 20:02 08/08/16 01:50 08/08/16 06:05 Bedside Glucose 141 194 169 Sodium Level 138 Potassium Level 4.9 Chloride Level 110 Carbon Dioxide Level 16 L Anion Gap 17 H Blood Urea Nitrogen 57 H Creatinine 2.11 H Glucose Level 122 Calcium Level 8.3 L Test 08/08/16 07:27 08/08/16 12:02 Bedside Glucose 126 137 Medications Medications Current Medications Sertraline HCl (Zoloft) 50 mg DAILY PO Last administered on 08/08/16 10:11; Admin Dose 50 MG; Start 07/30/16 at 09:00 Pantoprazole (Protonix Tab) 40 mg DAILY@06 PO Last administered on 08/08/16 05 :48; Admin Dose 40 MG; Start 07/30/16 at 06:00 Carbidopa/Levodopa (Sinemet ()) 1 tab DAILY PO Last administered on 08/08 10:09; Admin Dose 1 TAB; Start 07/30/16 at 09:00 Loratadine (Claritin) 10 mg DAILY PO Last administered on 08/08/16 10:11; Admin Dose 10 MG; Start 07/30/16 at 09:00 Meclizine HCl (Antivert) 25 mg Q12H PRN PO DIZZINESS; Start 07/29/16 at 22:45 Miscellaneous Information 1 ea NOTE XX ; Start 07/29/16 at 22:45 Glucose (Glutose) 15 gm Q15M PRN PO DECREASED GLUCOSE; Start 07/29/16 at 22:45 Glucose (Glutose) 22.5 gm Q15M PRN PO DECREASED GLUCOSE; Start 07/29/16 at 22: 45 Dextrose (D50w Syringe) 25 ml Q15M PRN IV DECREASED GLUCOSE; Start 07/29/16 at 22:45 Dextrose (D50w Syringe) 50 ml Q15M PRN IV DECREASED GLUCOSE; Start 07/29/16 at 22:45 Glucagon (Glucagen) 1 mg Q15M PRN IM DECREASED GLUCOSE; Start 07/29/16 at 22:45 Glucose (Glutose) 15 gm Q15M PRN BUCCAL DECREASED GLUCOSE; Start 07/29/16 at 22 :45 Heparin Sodium (Porcine) (Heparin (5000 Units/0.5 ml)) 5,000 unit BID SC Last administered on 08/08/16 10:13; Admin Dose 5,000 UNIT; Start 07/30/16 at 09:00 Diagnostic Test (Pha) (Accucheck) 1 ea 02 XX Last administered on 08/08/16 01: 52; Admin Dose 1 EA; Start 07/30/16 at 02:00 Fluticasone Propionate (Flonase 0.05% Nasal) 1 spray BID NASAL Last administered on 08/08/16 10:07; Admin Dose 1 SPRAY; Start 07/30/16 at 09:00 Carvedilol (Coreg) 25 mg BID PO Last administered on 08/08/16 10:11; Admin Dose 25 MG; Start 07/30/16 at 09:00 Clopidogrel Bisulfate (plaVIX) 75 mg DAILY PO Last administered on 08/08/16 10 :09; Admin Dose 75 MG; Start 07/30/16 at 09:00 Atorvastatin Calcium (Lipitor) 40 mg DAILY@21 PO Last administered on 20:05; Admin Dose 40 MG; Start 07/30/16 at 21:00 Acetaminophen (Tylenol Tab) 650 mg Q6H PRN PO PAIN AND OR ELEVATED TEMP Last administered on 08/08/16 10:28; Admin Dose 650 MG; Start 07/29/16 at 23:00 Al Hydrox/Mg Hydrox/Simethicone (Mag-Al Plus) 30 ml Q6H PRN PO GASTROINTESTINAL UPSET; Start 07/29/16 at 23:00 Alprazolam (Xanax) 0.25 mg HS PRN PO INSOMNIA Last administered on 08/07/16 20 :05; Admin Dose 0.25 MG; Start 07/29/16 at 23:00 Aripiprazole (Abilify) 2 mg DAILY PO Last administered on 08/08/16 10:09; Admin Dose 2 MG; Start 07/30/16 at 09:00 Aspirin (Halfprin) 81 mg DAILY PO Last administered on 08/08/16 10:09; Admin Dose 81 MG; Start 07/30/16 at 09:00 Docusate Sodium (Colace) 100 mg BID PO Last administered on 08/08/16 10:09; Admin Dose 100 MG; Start 07/30/16 at 09:00 Senna (Senokot) 1 tab HS PO Last administered on 08/05/16 20:58; Admin Dose 1 TAB; Start 07/30/16 at 21:00 Lactulose (Enulose) 20 gm DAILY PRN PO CONSTIPATION Last administered on 13:16; Admin Dose 20 GM; Start 07/29/16 at 23:00 Bisacodyl 10 mg 10 mg DAILY PRN [place] CONSTIPATION; Start 07/29/16 at 23:00 Ceftriaxone Sodium (Rocephin) 50 ml @ 100 mls/hr Q24H IVPB Last administered on 08/07/16 17:25; Admin Dose 100 MLS/HR; Start 08/05/16 at 18:00; Stop at 18:29 Benzocaine (Orajel) 1 applic TID PRN MM for toothache Last administered on 08/06 10:59; Admin Dose 1 APPLIC; Start 08/05/16 at 13:00 CALIN LOPEZ Aug 08, 2016 14:13 CALIN LOPEZ Aug 08, 2016 14:13
--- NOTE | 2016-08-08 15:04 | RADRPT ---
PROCEDURE: MRI Cervical Spine without contrast. CLINICAL INDICATION: 80-year-old female with history of breast cancer metastasis to the neck. TECHNIQUE: An MRI of the cervical spine was performed without contrast utilizing multiple sequence s in the sagittal and axial planes. Images reviewed on a high-resolution PACS system.. COMPARISON: No prior studies are available for comparison. FINDINGS: There is mild image degradation due to motion artifact. There is heterogeneity of the marrow signal involving the C2 vertebral body (axial series image 3, sagittal series image 7), which demonstrates T1 S/T2 hyperintensity on the axial images. There is a trace amount of increased FLAIR signal in t his region. There are moderate degenerative changes of the C1/C2 lateral mass articulations bilater ally, left worse than right. The remaining vertebral body heights are maintained. There is suggest ion of a small sclerotic deformity in the anterior - left lateral aspect of the C4 vertebral body, w hich is nonspecific. There is no edema in the adjacent vertebral body. 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 There is diffuse desiccation of the intervertebral discs with moderate loss of disc-space he ight at C4-5 and C5-6. There are associated mild discogenic endplate changes at these levels. The craniocervical and cervical medullary junctions are unremarkable. The cervical cord appears normal i n caliber and signal intensity. The paravertebral soft tissues are unremarkable. Occiput-C2: The anatomic relationships are normal without canal stenosis. C2-3: There is a 1-2 mm posterior disc/osteophyte complex. The thecal sac and neural foramina are p atent. There is mild bilateral facet spondylosis. C3-4: There is a 2 mm posterior central disc/osteophyte complex. The thecal sac measures 8.5 mm mid line AP diameter. There is mild to moderate bilateral facet hypertrophy. There is mild bilateral n eural foraminal narrowing. C4-5: There is a broad-based 3-4 mm posterior disc/osteophyte complex, slightly asymmetric to the le ft paracentral/foraminal region. The thecal sac measures 6.6 mm midline AP diameter. There is effa cement of the ventral and dorsal CSF column. No evidence of myelopathic changes at this time. Ther e is mild to moderate bilateral facet hypertrophy and moderate bilateral uncovertebral joint spondyl osis. There is severe bilateral neural foraminal narrowing. C5-6: There is a 3-4 mm left paracentral/foraminal disc/osteophyte complex. The thecal sac measures 6.6 mm midline AP diameter. There is effacement of the ventral CSF column. There is a trace amoun t of CSF dorsal to the cervical spinal cord. There is moderate bilateral facet and uncovertebral anuj int spondylosis. There is severe bilateral neural foraminal narrowing. C6-7: There is a 1-2 mm posterior disc/osteophyte complex. The thecal sac is patent, measuring 8.1 mm midline AP diameter. There is mild bilateral facet hypertrophy and moderate left uncovertebral j oint spondylosis. There is severe left and mild right neural foraminal narrowing. C7-T1: The posterior margin of the disc, thecal sac and neural foramina are normal in appearance. IMPRESSION: 1. Signal heterogeneity involving the C2 vertebral body, which demonstrates T1 and T2 signal hyperi ntensity. This finding is nonspecific, and may be related to etiologies such as osseous hemangioma, however given patient history of breast cancer metastasis is not excluded. Post contrast MRI of th e cervical spine and CT of the cervical spine is recommended for further evaluation. 2. Moderate spondylosis at C4-5 and C5-6 with subsequent moderate to severe spinal stenosis at thes e levels. 3. The cervical cord is normal in signal and caliber. No evidence of myelopathic changes at this ti me. 4. Multilevel facet and uncovertebral joint spondylosis with severe narrowing of the bilateral C4-5 , bilateral C5-6 and left C6-7 foramina. Other mild to moderate foraminal narrowings as discussed a rylee. RPTAT: HGAS\ .Jaspal Galvez MD, Date Time Electronically viewed and signed by .Jaspal Galvez MD, on 08/08/2016 15:04 .S/
--- NOTE | 2016-08-08 15:06 | CONS ---
Date/Time of Note Date/Time of Note DATE: 08/08/16 TIME: 15:05 Consultation Date/Type/Reason Admit Date/Time Jul 29, 2016 at 21:59 Initial Consult Date Type of Consultation: Internal medicine 24 HR Interval Summary Free Text/Dictation Patient is doing fairly well overall denies any pain, shortness of breath. General exam; elderly lady, awake alert currently in no distress. HEENT examination; supple neck, no JVD. No lymphadenopathy. Midline trachea. No thyromegaly. No neck masses. Chest examination a micro clear to auscultation. S1-S2 audible, no murmurs. Regular rhythm. Next Abdomen examination; soft, nontender, nondistended. Bowel sounds audible. No organomegaly. Extremity exam is; no peripheral edema. There is a dressing applied to the left hip. 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 Assessment and plan; 1. Patient admitted for fall resulting in left hip fracture status post surgery. 2. Metastatic breast cancer. 3. Anemia. Continue current supportive care. Continue rehab. Exam/Review of Systems Vital Signs Vitals Vital Signs Date Time Temp Pulse Resp B/P Pulse Ox O2 Delivery O2 Flow Rate FiO2 08/08/16 08:00 99.1 86 15 119/58 98 08/06/16 22:30 Room Air Intake and Output 08/07/16 08/07/16 08/08/16 15:00 23:00 07:00 Intake Total 480 ml 740 ml 908 ml Output Total 400 ml 200 ml 700 ml Balance 80 ml 540 ml 208 ml Results Result Diagram: 08/07/16 0606 08/08/16 0605 Results 24 hrs Laboratory Tests Test 08/07/16 16:56 08/07/16 20:02 08/08/16 01:50 08/08/16 06:05 Bedside Glucose 141 194 169 Sodium Level 138 Potassium Level 4.9 Chloride Level 110 Carbon Dioxide Level 16 L Anion Gap 17 H Blood Urea Nitrogen 57 H Creatinine 2.11 H Glucose Level 122 Calcium Level 8.3 L Test 08/08/16 07:27 08/08/16 12:02 Bedside Glucose 126 137 Medications Medications Current Medications Sertraline HCl (Zoloft) 50 mg DAILY PO Last administered on 08/08/16t 10:11; Admin Dose 50 MG; Start 07/30/16 at 09:00 Pantoprazole (Protonix Tab) 40 mg DAILY@06 PO Last administered on 08/08/16 05 :48; Admin Dose 40 MG; Start 07/30/16 at 06:00 Carbidopa/Levodopa (Sinemet (25/ 100)) 1 tab DAILY PO Last administered on 08/08 10:09; Admin Dose 1 TAB; Start 07/30/16 at 09:00 Loratadine (Claritin) 10 mg DAILY PO Last administered on 08/08/16 10:11; Admin Dose 10 MG; Start 07/30/16 at 09:00 Meclizine HCl (Antivert) 25 mg Q12H PRN PO DIZZINESS; Start 07/29/16 at 22:45 Miscellaneous Information 1 ea NOTE XX ; Start 07/29/16 at 22:45 Glucose (Glutose) 15 gm Q15M PRN PO DECREASED GLUCOSE; Start 07/29/16 at 22:45 Glucose (Glutose) 22.5 gm Q15M PRN PO DECREASED GLUCOSE; Start 07/29/16 at 22: 45 Dextrose (D50w Syringe) 25 ml Q15M PRN IV DECREASED GLUCOSE; Start 07/29/16 at 22:45 Dextrose (D50w Syringe) 50 ml Q15M PRN IV DECREASED GLUCOSE; Start 07/29/16 at 22:45 Glucagon (Glucagen) 1 mg Q15M PRN IM DECREASED GLUCOSE; Start 07/29/16 at 22:45 Glucose (Glutose) 15 gm Q15M PRN BUCCAL DECREASED GLUCOSE; Start 07/29/16 at 22 :45 Heparin Sodium (Porcine) (Heparin (5000 Units/0.5 ml)) 5,000 unit BID SC Last administered on 08/08/16 10:13; Admin Dose 5,000 UNIT; Start 07/30/16 at 09:00 Diagnostic Test (Pha) (Accucheck) 1 ea 02 XX Last administered on 08/08/16 01: 52; Admin Dose 1 EA; Start 07/30/16 at 02:00 Fluticasone Propionate (Flonase 0.05% Nasal) 1 spray BID NASAL Last administered on 08/08/16 10:07; Admin Dose 1 SPRAY; Start 07/30/16 at 09:00 Carvedilol (Coreg) 25 mg BID PO Last administered on 08/08/16 10:11; Admin Dose 25 MG; Start 07/30/16 at 09:00 Clopidogrel Bisulfate (plaVIX) 75 mg DAILY PO Last administered on 08/08/16 10 :09; Admin Dose 75 MG; Start 07/30/16 at 09:00 Atorvastatin Calcium (Lipitor) 40 mg DAILY@21 PO Last administered on 20:05; Admin Dose 40 MG; Start 07/30/16 at 21:00 Acetaminophen (Tylenol Tab) 650 mg Q6H PRN PO PAIN AND OR ELEVATED TEMP Last administered on 08/08/16 10:28; Admin Dose 650 MG; Start 07/29/16 at 23:00 Al Hydrox/Mg Hydrox/Simethicone (Mag-Al Plus) 30 ml Q6H PRN PO GASTROINTESTINAL UPSET; Start 07/29/16 at 23:00 Alprazolam (Xanax) 0.25 mg HS PRN PO INSOMNIA Last administered on 08/07/16 20 :05; Admin Dose 0.25 MG; Start 07/29/16 at 23:00 Aripiprazole (Abilify) 2 mg DAILY PO Last administered on 08/08/16 10:09; Admin Dose 2 MG; Start 07/30/16 at 09:00 Aspirin (Halfprin) 81 mg DAILY PO Last administered on 08/08/16 10:09; Admin Dose 81 MG; Start 07/30/16 at 09:00 Docusate Sodium (Colace) 100 mg BID PO Last administered on 08/08/16 10:09; Admin Dose 100 MG; Start 07/30/16 at 09:00 Senna (Senokot) 1 tab HS PO Last administered on 08/05/16 20:58; Admin Dose 1 TAB; Start 07/30/16 at 21:00 Lactulose (Enulose) 20 gm DAILY PRN PO CONSTIPATION Last administered on 13:16; Admin Dose 20 GM; Start 07/29/16 at 23:00 Bisacodyl 10 mg 10 mg DAILY PRN [place] CONSTIPATION; Start 07/29/16 at 23:00 Ceftriaxone Sodium (Rocephin) 50 ml @ 100 mls/hr Q24H IVPB Last administered on 08/07/16 17:25; Admin Dose 100 MLS/HR; Start 08/05/16 at 18:00; Stop at 18:29 Benzocaine (Orajel) 1 applic TID PRN MM for toothache Last administered on 08/06t 10:59; Admin Dose 1 APPLIC; Start 08/05/16 at 13:00 HENRIK CORRALES Aug 08, 2016 15:06
[2016-08-08] MEDS: CEFTRIAXONE 1 GM/NS 50 ML IVPB SCH (17:49)
--- NOTE | 2016-08-08 18:01 | CONS ---
Date/Time of Note Date/Time of Note DATE: 08/08/16 TIME: 17:55 Assessment/Plan Assessment/Plan Chief Complaint/Hosp Course 1. S/p hip surgery, required additioanal help with ADl 2. Acute kidney injury Problems: Additional Assessment/Plan 1. Continue PT 2. Monitor BMP Consultation Date/Type/Reason Admit Date/Time Jul 29, 2016 at 21:59 Initial Consult Date 08/07/2016 Type of Consultation: Nephrology Reason for Consultation Dr Shaikh Exam/Review of Systems Vital Signs Vitals Vital Signs Date Time Temp Pulse Resp B/P Pulse Ox O2 Delivery O2 Flow Rate FiO2 08/08/16 08:00 99.1 86 15 119/58 98 08/06/16 22:30 Room Air Intake and Output 08/07/16 08/07/16 08/08/16 15:00 23:00 07:00 Intake Total 480 ml 740 ml 908 ml Output Total 400 ml 200 ml 700 ml Balance 80 ml 540 ml 208 ml Exam Constitutional: alert, oriented Psych: no complaints Head: normocephalic Eyes: nl conjunctiva ENMT: nl external ears & nose Neck: supple Respiratory: diminished breath sounds Cardiovascular: nl pulses Gastrointestinal: soft Musculoskeletal: muscle weakness, other (with walker) Results Result Diagram: 08/07/16 0606 08/08/16 0605 Results 24 hrs Laboratory Tests Test 08/07/16 20:02 08/08/16 01:50 08/08/16 06:05 08/08/16 07:27 Bedside Glucose 194 169 126 Sodium Level 138 Potassium Level 4.9 Chloride Level 110 Carbon Dioxide Level 16 L Anion Gap 17 H Blood Urea Nitrogen 57 H Creatinine 2.11 H Glucose Level 122 Calcium Level 8.3 L Test 08/08/16 12:02 08/08/16 17:16 Bedside Glucose 137 151 Medications Medications Current Medications Sertraline HCl (Zoloft) 50 mg DAILY PO Last administered on 08/08/16 10:11; Admin Dose 50 MG; Start 07/30/16 at 09:00 Pantoprazole (Protonix Tab) 40 mg DAILY@06 PO Last administered on 08/08/16 05 :48; Admin Dose 40 MG; Start 07/30/16 at 06:00 Carbidopa/Levodopa (Sinemet (25/ 100)) 1 tab DAILY PO Last administered on 08/08 10:09; Admin Dose 1 TAB; Start 07/30/16 at 09:00 Loratadine (Claritin) 10 mg DAILY PO Last administered on 08/08/16 10:11; Admin Dose 10 MG; Start 07/30/16 at 09:00 Meclizine HCl (Antivert) 25 mg Q12H PRN PO DIZZINESS; Start 07/29/16 at 22:45 Miscellaneous Information 1 ea NOTE XX ; Start 07/29/16 at 22:45 Glucose (Glutose) 15 gm Q15M PRN PO DECREASED GLUCOSE; Start 07/29/16 at 22:45 Glucose (Glutose) 22.5 gm Q15M PRN PO DECREASED GLUCOSE; Start 07/29/16 at 22: 45 Dextrose (D50w Syringe) 25 ml Q15M PRN IV DECREASED GLUCOSE; Start 07/29/16 at 22:45 Dextrose (D50w Syringe) 50 ml Q15M PRN IV DECREASED GLUCOSE; Start 07/29/16 at 22:45 Glucagon (Glucagen) 1 mg Q15M PRN IM DECREASED GLUCOSE; Start 07/29/16 at 22:45 Glucose (Glutose) 15 gm Q15M PRN BUCCAL DECREASED GLUCOSE; Start 07/29/16 at 22 :45 Heparin Sodium (Porcine) (Heparin (5000 Units/0.5 ml)) 5,000 unit BID SC Last administered on 08/08/16 10:13; Admin Dose 5,000 UNIT; Start 07/30/16 at 09:00 Diagnostic Test (Pha) (Accucheck) 1 ea 02 XX Last administered on 08/08/16 01: 52; Admin Dose 1 EA; Start 07/30/16 at 02:00 Fluticasone Propionate (Flonase 0.05% Nasal) 1 spray BID NASAL Last administered on 08/08/16 10:07; Admin Dose 1 SPRAY; Start 07/30/16 at 09:00 Carvedilol (Coreg) 25 mg BID PO Last administered on 08/08/16 10:11; Admin Dose 25 MG; Start 07/30/16 at 09:00 Clopidogrel Bisulfate (plaVIX) 75 mg DAILY PO Last administered on 08/08/16 10 :09; Admin Dose 75 MG; Start 07/30/16 at 09:00 Atorvastatin Calcium (Lipitor) 40 mg DAILY@21 PO Last administered on 20:05; Admin Dose 40 MG; Start 07/30/16 at 21:00 Acetaminophen (Tylenol Tab) 650 mg Q6H PRN PO PAIN AND OR ELEVATED TEMP Last administered on 08/08/16 10:28; Admin Dose 650 MG; Start 07/29/16 at 23:00 Al Hydrox/Mg Hydrox/Simethicone (Mag-Al Plus) 30 ml Q6H PRN PO GASTROINTESTINAL UPSET; Start 07/29/16 at 23:00 Alprazolam (Xanax) 0.25 mg HS PRN PO INSOMNIA Last administered on 08/07/16 20 :05; Admin Dose 0.25 MG; Start 07/29/16 at 23:00 Aripiprazole (Abilify) 2 mg DAILY PO Last administered on 08/08/16 10:09; Admin Dose 2 MG; Start 07/30/16 at 09:00 Aspirin (Halfprin) 81 mg DAILY PO Last administered on 08/08/16 10:09; Admin Dose 81 MG; Start 07/30/16 at 09:00 Docusate Sodium (Colace) 100 mg BID PO Last administered on 08/08/16 10:09; Admin Dose 100 MG; Start 07/30/16 at 09:00 Senna (Senokot) 1 tab HS PO Last administered on 08/05/16 20:58; Admin Dose 1 TAB; Start 07/30/16 at 21:00 Lactulose (Enulose) 20 gm DAILY PRN PO CONSTIPATION Last administered on 13:16; Admin Dose 20 GM; Start 07/29/16 at 23:00 Bisacodyl 10 mg 10 mg DAILY PRN [place] CONSTIPATION; Start 07/29/16 at 23:00 Ceftriaxone Sodium (Rocephin) 50 ml @ 100 mls/hr Q24H IVPB Last administered on 08/08/16 17:49; Admin Dose 100 MLS/HR; Start 08/05/16 at 18:00; Stop at 18:29 Benzocaine (Orajel) 1 applic TID PRN MM for toothache Last administered on 08/06 10:59; Admin Dose 1 APPLIC; Start 08/05/16 at 13:00 SHIRA WASHBURN Aug 08, 2016 18:01
[2016-08-08 20:00] VITALS: BP 124/60; RESP 20
[2016-08-08] MEDS: SENNA TAB PO SCH (20:28)
[2016-08-08] MEDS: ALPRAZOLAM 0.25 MG TAB PO PRN (20:28)
[2016-08-08] MEDS: ATORVASTATIN 40 MG TAB PO SCH (20:28)
[2016-08-09] MEDS: LEVALBUTEROL (HFA) 15 GM INHALER INH SCH ×4 (02:00→20:22)
[2016-08-09] MEDS: ACCUCHECK AT 2AM (Patients on SS coverage) XX SCH (02:15)
[2016-08-09] MEDS: ACETAMINOPHEN 325 MG TAB PO PRN ×3 (06:21→20:26)
[2016-08-09] MEDS: PANTOPRAZOLE (EC) 40 MG TAB PO SCH (06:21)
[2016-08-09] MEDS: Insulin NOVOLOG SS MILD Algorithm (SS with meals and bedtime) SC SCH ×4 (07:05→21:00)
[2016-08-09 07:36] VITALS: BP 126/58; RESP 18
[2016-08-09] MEDS: LACTULOSE 30ML CUP PO PRN (09:04)
[2016-08-09] MEDS: FLUTICASONE 0.05% 16 GM NAS SPRAY NASAL SCH ×2 (09:05→20:22)
[2016-08-09] MEDS: CLOPIDOGREL 75 MG TAB PO SCH (09:06)
[2016-08-09] MEDS: SERTRALINE 50 MG TAB PO SCH (09:06)
[2016-08-09] MEDS: HEPARIN 5,000 UNIT/0.5 ML SYG SC SCH ×2 (09:06→20:20)
[2016-08-09] MEDS: ARIPIPRAZOLE 2 MG TAB PO SCH (09:07)
[2016-08-09] MEDS: CARBIDOPA/LEVODOPA (25/100) TAB PO SCH (09:07)
[2016-08-09] MEDS: DOCUSATE SODIUM 100 MG CAP PO SCH ×2 (09:07→20:22)
[2016-08-09] MEDS: ASPIRIN (EC) 81 MG TAB PO SCH (09:07)
[2016-08-09] MEDS: LORATADINE 10 MG TAB PO SCH (09:07)
--- NOTE | 2016-08-09 15:37 | CONS ---
Date/Time of Note Date/Time of Note DATE: 08/09/16 TIME: 15:36 Assessment/Plan Assessment/Plan Chief Complaint/Hosp Course CKD w raul ANEMIA METABOLIC ACIDOSIS hyperkalemia S/P HIP SURGERY PLAN F/U BMP kayexalate dcbactrim pt/ot iv fluid ck bmp BICITRA Problems: Consultation Date/Type/Reason Admit Date/Time Jul 29, 2016 at 21:59 Type of Consultation: Nephrology 24 HR Interval Summary Constitutional: no complaints Exam/Review of Systems Vital Signs Vitals Vital Signs Date Time Temp Pulse Resp B/P Pulse Ox O2 Delivery O2 Flow Rate FiO2 08/09/16 07:36 99.0 78 18 126/58 97 08/06/16 22:30 Room Air Intake and Output 08/08/16 08/08/16 08/09/16 14:59 22:59 06:59 Intake Total 50 ml 350 ml Output Total 200 ml Balance 50 ml 350 ml -200 ml Exam Respiratory: diminished breath sounds Cardiovascular: regular rate and rhythm Gastrointestinal: soft Extremities: normal pulses Results Result Diagram: 08/07/16 0606 08/08/16 0605 Results 24 hrs Laboratory Tests Test 08/08/16 17:16 08/08/16 20:41 08/09/16 02:14 08/09/16 07:35 Bedside Glucose 151 195 146 121 Test 08/09/16 11:48 Bedside Glucose 181 Medications Medications Current Medications Sertraline HCl (Zoloft) 50 mg DAILY PO Last administered on 08/09/16 09:06; Admin Dose 50 MG; Start 07/30/16 at 09:00 Pantoprazole (Protonix Tab) 40 mg DAILY@06 PO Last administered on 08/09/16 06 :21; Admin Dose 40 MG; Start 07/30/16 at 06:00 Carbidopa/Levodopa (Sinemet (25/ 100)) 1 tab DAILY PO Last administered on 08/09 09:07; Admin Dose 1 TAB; Start 07/30/16 at 09:00 Loratadine (Claritin) 10 mg DAILY PO Last administered on 08/09/16 09:07; Admin Dose 10 MG; Start 07/30/16 at 09:00 Meclizine HCl (Antivert) 25 mg Q12H PRN PO DIZZINESS; Start 07/29/16 at 22:45 Miscellaneous Information 1 ea NOTE XX ; Start 07/29/16 at 22:45 Glucose (Glutose) 15 gm Q15M PRN PO DECREASED GLUCOSE; Start 07/29/16 at 22:45 Glucose (Glutose) 22.5 gm Q15M PRN PO DECREASED GLUCOSE; Start 07/29/16 at 22: 45 Dextrose (D50w Syringe) 25 ml Q15M PRN IV DECREASED GLUCOSE; Start 07/29/16 at 22:45 Dextrose (D50w Syringe) 50 ml Q15M PRN IV DECREASED GLUCOSE; Start 07/29/16 at 22:45 Glucagon (Glucagen) 1 mg Q15M PRN IM DECREASED GLUCOSE; Start 07/29/16 at 22:45 Glucose (Glutose) 15 gm Q15M PRN BUCCAL DECREASED GLUCOSE; Start 07/29/16 at 22 :45 Heparin Sodium (Porcine) (Heparin (5000 Units/0.5 ml)) 5,000 unit BID SC Last administered on 08/09/16 09:06; Admin Dose 5,000 UNIT; Start 07/30/16 at 09:00 Diagnostic Test (Pha) (Accucheck) 1 ea 02 XX Last administered on 08/09/16 02: 15; Admin Dose 1 EA; Start 07/30/16 at 02:00 Fluticasone Propionate (Flonase 0.05% Nasal) 1 spray BID NASAL Last administered on 08/09/16 09:05; Admin Dose 1 SPRAY; Start 07/30/16 at 09:00 Carvedilol (Coreg) 25 mg BID PO Last administered on 08/09/16 09:06; Admin Dose 25 MG; Start 07/30/16 at 09:00 Clopidogrel Bisulfate (plaVIX) 75 mg DAILY PO Last administered on 08/09/16 09 :06; Admin Dose 75 MG; Start 07/30/16 at 09:00 Atorvastatin Calcium (Lipitor) 40 mg DAILY@21 PO Last administered on 20:28; Admin Dose 40 MG; Start 07/30/16 at 21:00 Acetaminophen (Tylenol Tab) 650 mg Q6H PRN PO PAIN AND OR ELEVATED TEMP Last administered on 08/09/16 14:09; Admin Dose 650 MG; Start 07/29/16 at 23:00 Al Hydrox/Mg Hydrox/Simethicone (Mag-Al Plus) 30 ml Q6H PRN PO GASTROINTESTINAL UPSET; Start 07/29/16 at 23:00 Alprazolam (Xanax) 0.25 mg HS PRN PO INSOMNIA Last administered on 08/08/16 20 :28; Admin Dose 0.25 MG; Start 07/29/16 at 23:00 Aripiprazole (Abilify) 2 mg DAILY PO Last administered on 08/09/16 09:07; Admin Dose 2 MG; Start 07/30/16 at 09:00 Aspirin (Halfprin) 81 mg DAILY PO Last administered on 08/09/16 09:07; Admin Dose 81 MG; Start 07/30/16 at 09:00 Docusate Sodium (Colace) 100 mg BID PO Last administered on 08/09/16 09:07; Admin Dose 100 MG; Start 07/30/16 at 09:00 Senna (Senokot) 1 tab HS PO Last administered on 08/08/16 20:28; Admin Dose 1 TAB; Start 07/30/16 at 21:00 Lactulose (Enulose) 20 gm DAILY PRN PO CONSTIPATION Last administered on 09:04; Admin Dose 20 GM; Start 07/29/16 at 23:00 Bisacodyl (Dulcolax Supp) 10 mg DAILY PRN IN CONSTIPATION; Start 07/29/16 at 23 :00 Benzocaine (Orajel) 1 applic TID PRN MM for toothache Last administered on 08/06 10:59; Admin Dose 1 APPLIC; Start 08/05/16 at 13:00 PERRY ALVARES MD Aug 09, 2016 15:37
[2016-08-09] MEDS: CITRIC ACID/NA CITRATE 30 ML CUP PO SCH (20:22)
[2016-08-09] MEDS: ATORVASTATIN 40 MG TAB PO SCH (20:23)
[2016-08-09] MEDS: SENNA TAB PO SCH (20:23)
[2016-08-09] MEDS: ALPRAZOLAM 0.25 MG TAB PO PRN (20:28)
[2016-08-09 20:33] VITALS: BP 115/55; RESP 18
[2016-08-10] MEDS: ACCUCHECK AT 2AM (Patients on SS coverage) XX SCH (02:00)
[2016-08-10] MEDS: LEVALBUTEROL (HFA) 15 GM INHALER INH SCH ×4 (02:00→20:21)
[2016-08-10] MEDS: PANTOPRAZOLE (EC) 40 MG TAB PO SCH (05:55)
[2016-08-10] MEDS: Insulin NOVOLOG SS MILD Algorithm (SS with meals and bedtime) SC SCH ×4 (07:05→20:23)
[2016-08-10 07:30] VITALS: BP 139/63; RESP 18
[2016-08-10 07:46] LABS: POTASSIUM 4.8 mmol/L (3.5-5.1)
[2016-08-10 07:49] LABS: CREATININE 2.05 mg/dl (0.44-1.00)
[2016-08-10 07:50] LABS: CALCIUM 8.4 mg/dl (8.4-10.2)
[2016-08-10] MEDS: ARIPIPRAZOLE 2 MG TAB PO SCH (08:09)
[2016-08-10] MEDS: SERTRALINE 50 MG TAB PO SCH (08:10)
[2016-08-10] MEDS: FLUTICASONE 0.05% 16 GM NAS SPRAY NASAL SCH ×2 (08:10→20:26)
[2016-08-10] MEDS: ASPIRIN (EC) 81 MG TAB PO SCH (08:10)
[2016-08-10] MEDS: LORATADINE 10 MG TAB PO SCH (08:10)
[2016-08-10] MEDS: DOCUSATE SODIUM 100 MG CAP PO SCH ×2 (08:10→20:25)
[2016-08-10] MEDS: CLOPIDOGREL 75 MG TAB PO SCH (08:10)
[2016-08-10] MEDS: CARBIDOPA/LEVODOPA (25/100) TAB PO SCH (08:10)
[2016-08-10] MEDS: HEPARIN 5,000 UNIT/0.5 ML SYG SC SCH ×2 (08:12→20:23)
[2016-08-10] MEDS: CITRIC ACID/NA CITRATE 30 ML CUP PO SCH ×2 (08:12→20:22)
[2016-08-10] MEDS: ACETAMINOPHEN 325 MG TAB PO PRN (11:35)
--- NOTE | 2016-08-10 13:32 | CONS ---
Date/Time of Note Date/Time of Note DATE: 08/10/16 TIME: 13:32 Consult Date/Type/Reason Admit Date/Time Jul 29, 2016 at 21:59 Type of Consultation: Nephrology Subjective case d/w family at bedside regarding need for supervision at home Objective Vital Signs Date Time Temp Pulse Resp B/P Pulse Ox O2 Delivery O2 Flow Rate FiO2 08/09/16 20:33 98.2 86 18 115/55 98 08/06/16 22:30 Room Air Intake and Output 08/09/16 08/09/16 08/10/16 14:59 22:59 06:59 Intake Total 480 ml 240 ml 600 ml Output Total 400 ml Balance 80 ml 240 ml 600 ml INTERDISCIPLINARY TEAM CONFERENCE BOWEL- Cont BLADDER-Cont SKIN- intact OT- DRESSING-min/mod BATHING-min/mod TOILETING-min/mod PT- BED MOBILITY-min TRANSFERS-min AMBULATION-min 30 feet x 3 W.C. MOBILITY-sba A/P- Interdisciplinary team conference held today. Please see interdisciplinary sheet. Working toward d.c. on 08/13 with post discharge follow up of physical therapy, occupational therapy. Results/Medications Result Diagram: 08/07/16 0606 08/10/16 0620 Results 24 hrs Laboratory Tests Test 08/09/16 16:34 08/09/16 20:21 08/10/16 06:20 08/10/16 07:31 Bedside Glucose 221 H 161 125 Sodium Level 139 Potassium Level 4.8 Chloride Level 108 Carbon Dioxide Level 19 L Anion Gap 17 H Blood Urea Nitrogen 55 H Creatinine 2.05 H Glucose Level 127 Calcium Level 8.4 Test 08/10/16 11:55 Bedside Glucose 190 Medications Current Medications Sertraline HCl (Zoloft) 50 mg DAILY PO Last administered on 08/10/16 08:10; Admin Dose 50 MG; Start 07/30/16 at 09:00 Pantoprazole (Protonix Tab) 40 mg DAILY@06 PO Last administered on 08/10/16 05 :55; Admin Dose 40 MG; Start 07/30/16 at 06:00 Carbidopa/Levodopa (Sinemet (25/ 100)) 1 tab DAILY PO Last administered on 08/10 08:10; Admin Dose 1 TAB; Start 07/30/16 at 09:00 Loratadine (Claritin) 10 mg DAILY PO Last administered on 08/10/16 08:10; Admin Dose 10 MG; Start 07/30/16 at 09:00 Meclizine HCl (Antivert) 25 mg Q12H PRN PO DIZZINESS; Start 07/29/16 at 22:45 Miscellaneous Information 1 ea NOTE XX ; Start 07/29/16 at 22:45 Glucose (Glutose) 15 gm Q15M PRN PO DECREASED GLUCOSE; Start 07/29/16 at 22:45 Glucose (Glutose) 22.5 gm Q15M PRN PO DECREASED GLUCOSE; Start 07/29/16 at 22: 45 Dextrose (D50w Syringe) 25 ml Q15M PRN IV DECREASED GLUCOSE; Start 07/29/16 at 22:45 Dextrose (D50w Syringe) 50 ml Q15M PRN IV DECREASED GLUCOSE; Start 07/29/16 at 22:45 Glucagon (Glucagen) 1 mg Q15M PRN IM DECREASED GLUCOSE; Start 07/29/16 at 22:45 Glucose (Glutose) 15 gm Q15M PRN BUCCAL DECREASED GLUCOSE; Start 07/29/16 at 22 :45 Heparin Sodium (Porcine) (Heparin (5000 Units/0.5 ml)) 5,000 unit BID SC Last administered on 08/10/16 08:12; Admin Dose 5,000 UNIT; Start 07/30/16 at 09:00 Diagnostic Test (Pha) (Accucheck) 1 ea 02 XX Last administered on 08/09/16 02: 15; Admin Dose 1 EA; Start 07/30/16 at 02:00 Fluticasone Propionate (Flonase 0.05% Nasal) 1 spray BID NASAL Last administered on 08/10/16 08:10; Admin Dose 1 SPRAY; Start 07/30/16 at 09:00 Carvedilol (Coreg) 25 mg BID PO Last administered on 08/10/16 08:10; Admin Dose 25 MG; Start 07/30/16 at 09:00 Clopidogrel Bisulfate (plaVIX) 75 mg DAILY PO Last administered on 08/10/16 08 :10; Admin Dose 75 MG; Start 07/30/16 at 09:00 Atorvastatin Calcium (Lipitor) 40 mg DAILY@21 PO Last administered on 20:23; Admin Dose 40 MG; Start 07/30/16 at 21:00 Acetaminophen (Tylenol Tab) 650 mg Q6H PRN PO PAIN AND OR ELEVATED TEMP Last administered on 08/10/16 11:35; Admin Dose 650 MG; Start 07/29/16 at 23:00 Al Hydrox/Mg Hydrox/Simethicone (Mag-Al Plus) 30 ml Q6H PRN PO GASTROINTESTINAL UPSET; Start 07/29/16 at 23:00 Alprazolam (Xanax) 0.25 mg HS PRN PO INSOMNIA Last administered on 08/09/16 20 :28; Admin Dose 0.25 MG; Start 07/29/16 at 23:00 Aripiprazole (Abilify) 2 mg DAILY PO Last administered on 08/10/16 08:09; Admin Dose 2 MG; Start 07/30/16 at 09:00 Aspirin (Halfprin) 81 mg DAILY PO Last administered on 08/10/16 08:10; Admin Dose 81 MG; Start 07/30/16 at 09:00 Docusate Sodium (Colace) 100 mg BID PO Last administered on 08/10/16 08:10; Admin Dose 100 MG; Start 07/30/16 at 09:00 Senna (Senokot) 1 tab HS PO Last administered on 08/09/16 20:23; Admin Dose 1 TAB; Start 07/30/16 at 21:00 Lactulose (Enulose) 20 gm DAILY PRN PO CONSTIPATION Last administered on 09:04; Admin Dose 20 GM; Start 07/29/16 at 23:00 Bisacodyl (Dulcolax Supp) 10 mg DAILY PRN [place] CONSTIPATION; Start 07/29/16 at 23 :00 Benzocaine (Orajel) 1 applic TID PRN MM for toothache Last administered on 08/06 10:59; Admin Dose 1 APPLIC; Start 08/05/16 at 13:00 Citric Acid/ Sodium Citrate (Bicitra) 30 ml BID PO Last administered on 08:12; Admin Dose 30 ML; Start 08/09/16 at 21:00 REBEKAH CRAFT MD Aug 10, 2016 13:32
--- NOTE | 2016-08-10 17:04 | CONS ---
Date/Time of Note Date/Time of Note DATE: 08/10/16 TIME: 16:59 Consult Date/Type/Reason Admit Date/Time Jul 29, 2016 at 21:59 Initial Consult Date Type of Consultation: internal medicine Subjective Patient stable this morning still has mild neck pain neurologically unchanged no focal deficits Objective Vital Signs Date Time Temp Pulse Resp B/P Pulse Ox O2 Delivery O2 Flow Rate FiO2 08/10/16 07:30 98.6 79 18 139/63 98 08/06/16 22:30 Room Air Intake and Output 08/09/16 08/09/16 08/10/16 15:00 23:00 07:00 Intake Total 480 ml 240 ml 600 ml Output Total 400 ml Balance 80 ml 240 ml 600 ml Exam GENERAL: Elderly Burmese lady comfortable at rest VITAL SIGNS: per chart NECK: Supple. No JVD or lymphadenopathy. CARDIAC EXAM: S1, S2. No added sounds or murmurs. CHEST: clear bilaterally, No added sounds, rales or wheezes ABDOMEN: Soft, nontender. No guarding or rebound. EXTREMITIES: No cyanosis, clubbing or edema. NEUROLOGIC: Generalized weakness. No focal deficits. Results/Medications Result Diagram: 08/07/16 0606 08/10/16 0620 Results 24 hrs Laboratory Tests Test 08/09/16 20:21 08/10/16 06:20 08/10/16 07:31 08/10/16 11:55 Bedside Glucose 161 125 190 Sodium Level 139 Potassium Level 4.8 Chloride Level 108 Carbon Dioxide Level 19 L Anion Gap 17 H Blood Urea Nitrogen 55 H Creatinine 2.05 H Glucose Level 127 Calcium Level 8.4 IMPRESSION: 1. Signal heterogeneity involving the C2 vertebral body, which demonstrates T1 and T2 signal hyperintensity. This finding is nonspecific, and may be related to etiologies such as osseous hemangioma, however given patient history of breast cancer metastasis is not excluded. Post contrast MRI of the cervical spine and CT of the cervical spine is recommended for further evaluation. 2. Moderate spondylosis at C4-5 and C5-6 with subsequent moderate to severe spinal stenosis at these levels. 3. The cervical cord is normal in signal and caliber. No evidence of myelopathic changes at this time. 4. Multilevel facet and uncovertebral joint spondylosis with severe narrowing of the bilateral C4-5, bilateral C5-6 and left C6-7 foramina. Other mild to moderate foraminal narrowings as discussed above. Medications Current Medications Sertraline HCl (Zoloft) 50 mg DAILY PO Last administered on 08/10/16 08:10; Admin Dose 50 MG; Start 07/30/16 at 09:00 Pantoprazole (Protonix Tab) 40 mg DAILY@06 PO Last administered on 08/10/16 05 :55; Admin Dose 40 MG; Start 07/30/16 at 06:00 Carbidopa/Levodopa (Sinemet (25/ 100)) 1 tab DAILY PO Last administered on 08/10 08:10; Admin Dose 1 TAB; Start 07/30/16 at 09:00 Loratadine (Claritin) 10 mg DAILY PO Last administered on 08/10/16 08:10; Admin Dose 10 MG; Start 07/30/16 at 09:00 Meclizine HCl (Antivert) 25 mg Q12H PRN PO DIZZINESS; Start 07/29/16 at 22:45 Miscellaneous Information 1 ea NOTE XX ; Start 07/29/16 at 22:45 Glucose (Glutose) 15 gm Q15M PRN PO DECREASED GLUCOSE; Start 07/29/16 at 22:45 Glucose (Glutose) 22.5 gm Q15M PRN PO DECREASED GLUCOSE; Start 07/29/16 at 22: 45 Dextrose (D50w Syringe) 25 ml Q15M PRN IV DECREASED GLUCOSE; Start 07/29/16 at 22:45 Dextrose (D50w Syringe) 50 ml Q15M PRN IV DECREASED GLUCOSE; Start 07/29/16 at 22:45 Glucagon (Glucagen) 1 mg Q15M PRN IM DECREASED GLUCOSE; Start 07/29/16 at 22:45 Glucose (Glutose) 15 gm Q15M PRN BUCCAL DECREASED GLUCOSE; Start 07/29/16 at 22 :45 Heparin Sodium (Porcine) (Heparin (5000 Units/0.5 ml)) 5,000 unit BID SC Last administered on 08/10/16 08:12; Admin Dose 5,000 UNIT; Start 07/30/16 at 09:00 Diagnostic Test (Pha) (Accucheck) 1 ea 02 XX Last administered on 08/09/16 02: 15; Admin Dose 1 EA; Start 07/30/16 at 02:00 Fluticasone Propionate (Flonase 0.05% Nasal) 1 spray BID NASAL Last administered on 08/10/16 08:10; Admin Dose 1 SPRAY; Start 07/30/16 at 09:00 Carvedilol (Coreg) 25 mg BID PO Last administered on 08/10/16 08:10; Admin Dose 25 MG; Start 07/30/16 at 09:00 Clopidogrel Bisulfate (plaVIX) 75 mg DAILY PO Last administered on 08/10/16 08 :10; Admin Dose 75 MG; Start 07/30/16 at 09:00 Atorvastatin Calcium (Lipitor) 40 mg DAILY@21 PO Last administered on 20:23; Admin Dose 40 MG; Start 07/30/16 at 21:00 Acetaminophen (Tylenol Tab) 650 mg Q6H PRN PO PAIN AND OR ELEVATED TEMP Last administered on 08/10/16 11:35; Admin Dose 650 MG; Start 07/29/16 at 23:00 Al Hydrox/Mg Hydrox/Simethicone (Mag-Al Plus) 30 ml Q6H PRN PO GASTROINTESTINAL UPSET; Start 07/29/16 at 23:00 Alprazolam (Xanax) 0.25 mg HS PRN PO INSOMNIA Last administered on 08/09/16 20 :28; Admin Dose 0.25 MG; Start 07/29/16 at 23:00 Aripiprazole (Abilify) 2 mg DAILY PO Last administered on 08/10/16 08:09; Admin Dose 2 MG; Start 07/30/16 at 09:00 Aspirin (Halfprin) 81 mg DAILY PO Last administered on 08/10/16 08:10; Admin Dose 81 MG; Start 07/30/16 at 09:00 Docusate Sodium (Colace) 100 mg BID PO Last administered on 08/10/16 08:10; Admin Dose 100 MG; Start 07/30/16 at 09:00 Senna (Senokot) 1 tab HS PO Last administered on 08/09/16 20:23; Admin Dose 1 TAB; Start 07/30/16 at 21:00 Lactulose (Enulose) 20 gm DAILY PRN PO CONSTIPATION Last administered on 09:04; Admin Dose 20 GM; Start 07/29/16 at 23:00 Bisacodyl (Dulcolax Supp) 10 mg DAILY PRN [place] CONSTIPATION; Start 07/29/16 at 23 :00 Benzocaine (Orajel) 1 applic TID PRN MM for toothache Last administered on 08/06 10:59; Admin Dose 1 APPLIC; Start 08/05/16 at 13:00 Citric Acid/ Sodium Citrate (Bicitra) 30 ml BID PO Last administered on 08:12; Admin Dose 30 ML; Start 08/09/16 at 21:00 Assessment/Plan Chief Complaint/Hosp Course Assessment 1. 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 Anemia likely of chronic disease 3. Renal insufficiency Plan 1. Patient has declined MRI with contrast. Noncontrast study results were discussed with primary oncologist Dr. Gonzalez. At present he does not think she needs further therapy acutely 2. Continue physical therapy 3. Start iron replacement therapy 4. Hematology recommendations if hemoglobin continues to drop Problems: JEMIMA LUNA MD, [facility] Aug 10, 2016 17:04
--- NOTE | 2016-08-10 18:34 | CONS ---
Date/Time of Note Date/Time of Note DATE: 08/10/16 TIME: 18:33 Assessment/Plan Assessment/Plan Chief Complaint/Hosp Course CKD w raul ANEMIA METABOLIC ACIDOSIS hyperkalemia better S/P HIP SURGERY PLAN F/U BMP kayexalate prn pt/ot iv fluid ck bmp BICITRA Problems: Consultation Date/Type/Reason Admit Date/Time Jul 29, 2016 at 21:59 Type of Consultation: renal 24 HR Interval Summary Constitutional: no complaints Exam/Review of Systems Vital Signs Vitals Vital Signs Date Time Temp Pulse Resp B/P Pulse Ox O2 Delivery O2 Flow Rate FiO2 08/10/16 07:30 98.6 79 18 139/63 98 08/06/16 22:30 Room Air Intake and Output 08/09/16 08/09/16 08/10/16 15:00 23:00 07:00 Intake Total 480 ml 240 ml 600 ml Output Total 400 ml Balance 80 ml 240 ml 600 ml Exam Respiratory: clear to auscultation Cardiovascular: regular rate and rhythm Gastrointestinal: soft Extremities: edema (neg) Results Result Diagram: 08/07/16 0606 08/10/16 0620 Results 24 hrs Laboratory Tests Test 08/09/16 20:21 08/10/16 06:20 08/10/16 07:31 08/10/16 11:55 Bedside Glucose 161 125 190 Sodium Level 139 Potassium Level 4.8 Chloride Level 108 Carbon Dioxide Level 19 L Anion Gap 17 H Blood Urea Nitrogen 55 H Creatinine 2.05 H Glucose Level 127 Calcium Level 8.4 Test 08/10/16 16:58 Bedside Glucose 145 Medications Medications Current Medications Sertraline HCl (Zoloft) 50 mg DAILY PO Last administered on 08/10/16 08:10; Admin Dose 50 MG; Start 07/30/16 at 09:00 Pantoprazole (Protonix Tab) 40 mg DAILY@06 PO Last administered on 08/10/16 05 :55; Admin Dose 40 MG; Start 07/30/16 at 06:00 Carbidopa/Levodopa (Sinemet (25/ 100)) 1 tab DAILY PO Last administered on 08/10 08:10; Admin Dose 1 TAB; Start 07/30/16 at 09:00 Loratadine (Claritin) 10 mg DAILY PO Last administered on 08/10/16 08:10; Admin Dose 10 MG; Start 07/30/16 at 09:00 Meclizine HCl (Antivert) 25 mg Q12H PRN PO DIZZINESS; Start 07/29/16 at 22:45 Miscellaneous Information 1 ea NOTE XX ; Start 07/29/16 at 22:45 Glucose (Glutose) 15 gm Q15M PRN PO DECREASED GLUCOSE; Start 07/29/16 at 22:45 Glucose (Glutose) 22.5 gm Q15M PRN PO DECREASED GLUCOSE; Start 07/29/16 at 22: 45 Dextrose (D50w Syringe) 25 ml Q15M PRN IV DECREASED GLUCOSE; Start 07/29/16 at 22:45 Dextrose (D50w Syringe) 50 ml Q15M PRN IV DECREASED GLUCOSE; Start 07/29/16 at 22:45 Glucagon (Glucagen) 1 mg Q15M PRN IM DECREASED GLUCOSE; Start 07/29/16 at 22:45 Glucose (Glutose) 15 gm Q15M PRN BUCCAL DECREASED GLUCOSE; Start 07/29/16 at 22 :45 Heparin Sodium (Porcine) (Heparin (5000 Units/0.5 ml)) 5,000 unit BID SC Last administered on 08/10/16 08:12; Admin Dose 5,000 UNIT; Start 07/30/16 at 09:00 Diagnostic Test (Pha) (Accucheck) 1 ea 02 XX Last administered on 08/09/16 02: 15; Admin Dose 1 EA; Start 07/30/16 at 02:00 Fluticasone Propionate (Flonase 0.05% Nasal) 1 spray BID NASAL Last administered on 08/10/16 08:10; Admin Dose 1 SPRAY; Start 07/30/16 at 09:00 Carvedilol (Coreg) 25 mg BID PO Last administered on 08/10/16 08:10; Admin Dose 25 MG; Start 07/30/16 at 09:00 Clopidogrel Bisulfate (plaVIX) 75 mg DAILY PO Last administered on 08/10/16 08 :10; Admin Dose 75 MG; Start 07/30/16 at 09:00 Atorvastatin Calcium (Lipitor) 40 mg DAILY@21 PO Last administered on 20:23; Admin Dose 40 MG; Start 07/30/16 at 21:00 Acetaminophen (Tylenol Tab) 650 mg Q6H PRN PO PAIN AND OR ELEVATED TEMP Last administered on 08/10/16 11:35; Admin Dose 650 MG; Start 07/29/16 at 23:00 Al Hydrox/Mg Hydrox/Simethicone (Mag-Al Plus) 30 ml Q6H PRN PO GASTROINTESTINAL UPSET; Start 07/29/16 at 23:00 Alprazolam (Xanax) 0.25 mg HS PRN PO INSOMNIA Last administered on 08/09/16 20 :28; Admin Dose 0.25 MG; Start 07/29/16 at 23:00 Aripiprazole (Abilify) 2 mg DAILY PO Last administered on 08/10/16 08:09; Admin Dose 2 MG; Start 07/30/16 at 09:00 Aspirin (Halfprin) 81 mg DAILY PO Last administered on 08/10/16 08:10; Admin Dose 81 MG; Start 07/30/16 at 09:00 Docusate Sodium (Colace) 100 mg BID PO Last administered on 08/10/16 08:10; Admin Dose 100 MG; Start 07/30/16 at 09:00 Senna (Senokot) 1 tab HS PO Last administered on 08/09/16 20:23; Admin Dose 1 TAB; Start 07/30/16 at 21:00 Lactulose (Enulose) 20 gm DAILY PRN PO CONSTIPATION Last administered on 09:04; Admin Dose 20 GM; Start 07/29/16 at 23:00 Bisacodyl (Dulcolax Supp) 10 mg DAILY PRN [place] CONSTIPATION; Start 07/29/16 at 23 :00 Benzocaine (Orajel) 1 applic TID PRN MM for toothache Last administered on 08/06 10:59; Admin Dose 1 APPLIC; Start 08/05/16 at 13:00 Citric Acid/ Sodium Citrate (Bicitra) 30 ml BID PO Last administered on 08:12; Admin Dose 30 ML; Start 08/09/16 at 21:00 Ferrous Sulfate (Ferrous Sulfate (Ec)) 325 mg BID PO ; Start 08/10/16 at 21:00 PERRY ALVARES MD Aug 10, 2016 18:34
[2016-08-10 19:46] VITALS: BP 118/56; RESP 18
[2016-08-10] MEDS: ATORVASTATIN 40 MG TAB PO SCH (20:23)
[2016-08-10] MEDS: SENNA TAB PO SCH (20:23)
[2016-08-10] MEDS: ALPRAZOLAM 0.25 MG TAB PO PRN (20:24)
[2016-08-10] MEDS: FERROUS SULFATE (EC) 325 MG TAB PO SCH (20:27)
[2016-08-11] MEDS: ACCUCHECK AT 2AM (Patients on SS coverage) XX SCH (02:00)
[2016-08-11] MEDS: LEVALBUTEROL (HFA) 15 GM INHALER INH SCH ×4 (02:00→21:09)
[2016-08-11] MEDS: PANTOPRAZOLE (EC) 40 MG TAB PO SCH (06:27)
[2016-08-11 06:41] LABS: ADD SCAN DIFF NO
[2016-08-11 06:57] LABS: BASOPHILS % 0.7 % (0.0-2.0); EOSINOPHILS # 0.5 10^3/ul (0.0-0.5); EOSINOPHILS % 8.4 % (0.0-7.0); HEMATOCRIT 25.6 % (37.0-47.0); LYMPHOCYTES # 1.2 10^3/ul (0.8-2.9); LYMPHOCYTES % 21.9 % (15.0-51.0); MEAN CORPUSCULAR HEMOGLOBIN 29.1 pg (29.0-33.0); MEAN CORPUSCULAR HGB CONC 31.3 g/dl (32.0-37.0); MEAN CORPUSCULAR VOLUME 93.1 fl (82.0-101.0); MEAN PLATELET VOLUME 10.5 fl (7.4-10.4); MONOCYTE # 0.6 10^3/ul (0.3-0.9); MONOCYTES % 10.2 % (0.0-11.0); NEUTROPHIL # 3.1 10^3/ul (1.6-7.5); NEUTROPHILS % 57.2 % (39.0-77.0); PLATELET COUNT 172 10^3/UL (140-415); RED BLOOD COUNT 2.75 10^6/ul (4.20-5.40); RED CELL DISTRIBUTION WIDTH 16.3 % (11.5-14.5); WHITE BLOOD COUNT 5.5 10^3/ul (4.8-10.8)
[2016-08-11] MEDS: Insulin NOVOLOG SS MILD Algorithm (SS with meals and bedtime) SC SCH ×4 (07:05→21:00)
[2016-08-11 08:03] LABS: CREATININE 2.04 mg/dl (0.44-1.00); PHOSPHORUS 3.4 mg/dl (2.5-4.9)
[2016-08-11 08:04] LABS: CALCIUM 8.9 mg/dl (8.4-10.2); MAGNESIUM 2.1 mg/dl (1.7-2.5)
[2016-08-11 08:07] VITALS: BP 123/55; RESP 18
[2016-08-11] MEDS: CITRIC ACID/NA CITRATE 30 ML CUP PO SCH ×2 (08:54→21:10)
[2016-08-11] MEDS: FLUTICASONE 0.05% 16 GM NAS SPRAY NASAL SCH ×2 (08:54→21:17)
[2016-08-11] MEDS: CARBIDOPA/LEVODOPA (25/100) TAB PO SCH (08:54)
[2016-08-11] MEDS: ARIPIPRAZOLE 2 MG TAB PO SCH (08:54)
[2016-08-11] MEDS: SERTRALINE 50 MG TAB PO SCH (08:55)
[2016-08-11] MEDS: DOCUSATE SODIUM 100 MG CAP PO SCH ×2 (08:55→21:11)
[2016-08-11] MEDS: FERROUS SULFATE (EC) 325 MG TAB PO SCH ×2 (08:55→21:11)
[2016-08-11] MEDS: LORATADINE 10 MG TAB PO SCH (08:55)
[2016-08-11] MEDS: ASPIRIN (EC) 81 MG TAB PO SCH (08:55)
[2016-08-11] MEDS: CLOPIDOGREL 75 MG TAB PO SCH (08:55)
[2016-08-11] MEDS: HEPARIN 5,000 UNIT/0.5 ML SYG SC SCH ×2 (08:57→21:10)
--- NOTE | 2016-08-11 10:53 | CONS ---
Date/Time of Note Date/Time of Note DATE: 08/11/16 TIME: 10:53 Consult Date/Type/Reason Admit Date/Time Jul 29, 2016 at 21:59 Type of Consultation: renal Subjective Comfortable Objective pulm-cta min assist transfer Vital Signs Date Time Temp Pulse Resp B/P Pulse Ox O2 Delivery O2 Flow Rate FiO2 08/11/16 08:07 98.4 84 18 123/55 96 Intake and Output 08/10/16 08/10/16 08/11/16 14:59 22:59 06:59 Intake Total 480 ml 240 ml Output Total 650 ml Balance 480 ml -410 ml Results/Medications Result Diagram: 08/11/16 0610 08/11/16 0610 Results 24 hrs Laboratory Tests Test 08/10/16 11:55 08/10/16 16:58 08/10/16 20:04 08/11/16 06:10 Bedside Glucose 190 145 151 White Blood Count 5.5 Red Blood Count 2.75 L Hemoglobin 8.0 L Hematocrit 25.6 L Mean Corpuscular Volume 93.1 Mean Corpuscular Hemoglobin 29.1 Mean Corpuscular Hemoglobin Concent 31.3 L Red Cell Distribution Width 16.3 H Platelet Count 172 Mean Platelet Volume 10.5 H Neutrophils % 57.2 Lymphocytes % 21.9 Monocytes % 10.2 Eosinophils % 8.4 H Basophils % 0.7 Nucleated Red Blood Cells % 0.0 Neutrophils # 3.1 Lymphocytes # 1.2 Monocytes # 0.6 Eosinophils # 0.5 Basophils # 0.0 Nucleated Red Blood Cells # 0.0 Sodium Level 138 Potassium Level 5.0 Chloride Level 109 Carbon Dioxide Level 16 L Anion Gap 18 H Blood Urea Nitrogen 55 H Creatinine 2.04 H Glucose Level 122 Calcium Level 8.9 Phosphorus Level 3.4 Magnesium Level 2.1 Test 08/11/16 07:28 Bedside Glucose 115 Medications Current Medications Sertraline HCl (Zoloft) 50 mg DAILY PO Last administered on 08/11/16 08:55; Admin Dose 50 MG; Start 07/30/16 at 09:00 Pantoprazole (Protonix Tab) 40 mg DAILY@06 PO Last administered on 08/11/16 06 :27; Admin Dose 40 MG; Start 07/30/16 at 06:00 Carbidopa/Levodopa (Sinemet (25/ 100)) 1 tab DAILY PO Last administered on 08/11 08:54; Admin Dose 1 TAB; Start 07/30/16 at 09:00 Loratadine (Claritin) 10 mg DAILY PO Last administered on 08/11/16 08:55; Admin Dose 10 MG; Start 07/30/16 at 09:00 Meclizine HCl (Antivert) 25 mg Q12H PRN PO DIZZINESS; Start 07/29/16 at 22:45 Miscellaneous Information 1 ea NOTE XX ; Start 07/29/16 at 22:45 Glucose (Glutose) 15 gm Q15M PRN PO DECREASED GLUCOSE; Start 07/29/16 at 22:45 Glucose (Glutose) 22.5 gm Q15M PRN PO DECREASED GLUCOSE; Start 07/29/16 at 22: 45 Dextrose (D50w Syringe) 25 ml Q15M PRN IV DECREASED GLUCOSE; Start 07/29/16 at 22:45 Dextrose (D50w Syringe) 50 ml Q15M PRN IV DECREASED GLUCOSE; Start 07/29/16 at 22:45 Glucagon (Glucagen) 1 mg Q15M PRN IM DECREASED GLUCOSE; Start 07/29/16 at 22:45 Glucose (Glutose) 15 gm Q15M PRN BUCCAL DECREASED GLUCOSE; Start 07/29/16 at 22 :45 Heparin Sodium (Porcine) (Heparin (5000 Units/0.5 ml)) 5,000 unit BID SC Last administered on 08/11/16 08:57; Admin Dose 5,000 UNIT; Start 07/30/16 at 09:00 Diagnostic Test (Pha) (Accucheck) 1 ea 02 XX Last administered on 08/09/16 02: 15; Admin Dose 1 EA; Start 07/30/16 at 02:00 Fluticasone Propionate (Flonase 0.05% Nasal) 1 spray BID NASAL Last administered on 08/11/16 08:54; Admin Dose 1 SPRAY; Start 07/30/16 at 09:00 Carvedilol (Coreg) 25 mg BID PO Last administered on 08/11/16 08:55; Admin Dose 25 MG; Start 07/30/16 at 09:00 Clopidogrel Bisulfate (plaVIX) 75 mg DAILY PO Last administered on 08/11/16 08 :55; Admin Dose 75 MG; Start 07/30/16 at 09:00 Atorvastatin Calcium (Lipitor) 40 mg DAILY@21 PO Last administered on 20:23; Admin Dose 40 MG; Start 07/30/16 at 21:00 Acetaminophen (Tylenol Tab) 650 mg Q6H PRN PO PAIN AND OR ELEVATED TEMP Last administered on 08/10/16 11:35; Admin Dose 650 MG; Start 07/29/16 at 23:00 Al Hydrox/Mg Hydrox/Simethicone (Mag-Al Plus) 30 ml Q6H PRN PO GASTROINTESTINAL UPSET; Start 07/29/16 at 23:00 Alprazolam (Xanax) 0.25 mg HS PRN PO INSOMNIA Last administered on 08/10/16 20 :24; Admin Dose 0.25 MG; Start 07/29/16 at 23:00 Aripiprazole (Abilify) 2 mg DAILY PO Last administered on 08/11/16 08:54; Admin Dose 2 MG; Start 07/30/16 at 09:00 Aspirin (Halfprin) 81 mg DAILY PO Last administered on 08/11/16 08:55; Admin Dose 81 MG; Start 07/30/16 at 09:00 Docusate Sodium (Colace) 100 mg BID PO Last administered on 08/11/16 08:55; Admin Dose 100 MG; Start 07/30/16 at 09:00 Senna (Senokot) 1 tab HS PO Last administered on 08/10/16 20:23; Admin Dose 1 TAB; Start 07/30/16 at 21:00 Lactulose (Enulose) 20 gm DAILY PRN PO CONSTIPATION Last administered on 09:04; Admin Dose 20 GM; Start 07/29/16 at 23:00 Bisacodyl (Dulcolax Supp) 10 mg DAILY PRN [place] CONSTIPATION; Start 07/29/16 at 23 :00 Benzocaine (Orajel) 1 applic TID PRN MM for toothache Last administered on 08/06 10:59; Admin Dose 1 APPLIC; Start 08/05/16 at 13:00 Citric Acid/ Sodium Citrate (Bicitra) 30 ml BID PO Last administered on 08:54; Admin Dose 30 ML; Start 08/09/16 at 21:00 Ferrous Sulfate (Ferrous Sulfate (Ec)) 325 mg BID PO Last administered on 3/28/ 17at 08:55; Admin Dose 325 MG; Start 08/10/16 at 21:00 Assessment/Plan Additional Assessment/Plan Rehab- Right hip subcapital fracture status post hemiarthroplasty. Continue rehab program Neck- Patient with h.o. of bony mets from breast Ca Parkinson's ds Dysphagia - speech therapy History of breast cancer with bone metastases. Anemia. History of myocardial infarction and coronary artery bypass graft. Diabetes mellitus. Hypertension. Dyslipidemia. REBEKAH CRAFT MD Aug 11, 2016 10:53
--- NOTE | 2016-08-11 11:43 | CONS ---
Date/Time of Note Date/Time of Note DATE: 08/11/16 TIME: 11:40 Consult Date/Type/Reason Admit Date/Time Jul 29, 2016 at 21:59 Type of Consultation: internal medicine Subjective Patient remains comfortable swallowing still has mild neck discomfort Objective Vital Signs Date Time Temp Pulse Resp B/P Pulse Ox O2 Delivery O2 Flow Rate FiO2 08/11/16 08:07 98.4 84 18 123/55 96 Intake and Output 08/10/16 08/10/16 08/11/16 15:00 23:00 07:00 Intake Total 480 ml 240 ml Output Total 650 ml Balance 480 ml -410 ml Exam GENERAL: Elderly [place] lady comfortable at rest VITAL SIGNS: per chart NECK: Supple. No JVD or lymphadenopathy. CARDIAC EXAM: S1, S2. No added sounds or murmurs. CHEST: clear bilaterally, No added sounds, rales or wheezes ABDOMEN: Soft, nontender. No guarding or rebound. EXTREMITIES: No cyanosis, clubbing or edema. NEUROLOGIC: Generalized weakness. No focal deficits. Results/Medications Result Diagram: 08/11/16 0610 08/11/16 0610 Results 24 hrs Laboratory Tests Test 08/10/16 11:55 08/10/16 16:58 08/10/16 20:04 08/11/16 06:10 Bedside Glucose 190 145 151 White Blood Count 5.5 Red Blood Count 2.75 L Hemoglobin 8.0 L Hematocrit 25.6 L Mean Corpuscular Volume 93.1 Mean Corpuscular Hemoglobin 29.1 Mean Corpuscular Hemoglobin Concent 31.3 L Red Cell Distribution Width 16.3 H Platelet Count 172 Mean Platelet Volume 10.5 H Neutrophils % 57.2 Lymphocytes % 21.9 Monocytes % 10.2 Eosinophils % 8.4 H Basophils % 0.7 Nucleated Red Blood Cells % 0.0 Neutrophils # 3.1 Lymphocytes # 1.2 Monocytes # 0.6 Eosinophils # 0.5 Basophils # 0.0 Nucleated Red Blood Cells # 0.0 Sodium Level 138 Potassium Level 5.0 Chloride Level 109 Carbon Dioxide Level 16 L Anion Gap 18 H Blood Urea Nitrogen 55 H Creatinine 2.04 H Glucose Level 122 Calcium Level 8.9 Phosphorus Level 3.4 Magnesium Level 2.1 Test 08/11/16 07:28 Bedside Glucose 115 Medications Current Medications Sertraline HCl (Zoloft) 50 mg DAILY PO Last administered on 08/11/16 08:55; Admin Dose 50 MG; Start 07/30/16 at 09:00 Pantoprazole (Protonix Tab) 40 mg DAILY@06 PO Last administered on 08/11/16 06 :27; Admin Dose 40 MG; Start 07/30/16 at 06:00 Carbidopa/Levodopa (Sinemet (25/ 100)) 1 tab DAILY PO Last administered on 08/11 08:54; Admin Dose 1 TAB; Start 07/30/16 at 09:00 Loratadine (Claritin) 10 mg DAILY PO Last administered on 08/11/16 08:55; Admin Dose 10 MG; Start 07/30/16 at 09:00 Meclizine HCl (Antivert) 25 mg Q12H PRN PO DIZZINESS; Start 07/29/16 at 22:45 Miscellaneous Information 1 ea NOTE XX ; Start 07/29/16 at 22:45 Glucose (Glutose) 15 gm Q15M PRN PO DECREASED GLUCOSE; Start 07/29/16 at 22:45 Glucose (Glutose) 22.5 gm Q15M PRN PO DECREASED GLUCOSE; Start 07/29/16 at 22: 45 Dextrose (D50w Syringe) 25 ml Q15M PRN IV DECREASED GLUCOSE; Start 07/29/16 at 22:45 Dextrose (D50w Syringe) 50 ml Q15M PRN IV DECREASED GLUCOSE; Start 07/29/16 at 22:45 Glucagon (Glucagen) 1 mg Q15M PRN IM DECREASED GLUCOSE; Start 07/29/16 at 22:45 Glucose (Glutose) 15 gm Q15M PRN BUCCAL DECREASED GLUCOSE; Start 07/29/16 at 22 :45 Heparin Sodium (Porcine) (Heparin (5000 Units/0.5 ml)) 5,000 unit BID SC Last administered on 08/11/16 08:57; Admin Dose 5,000 UNIT; Start 07/30/16 at 09:00 Diagnostic Test (Pha) (Accucheck) 1 ea 02 XX Last administered on 08/09/16 02: 15; Admin Dose 1 EA; Start 07/30/16 at 02:00 Fluticasone Propionate (Flonase 0.05% Nasal) 1 spray BID NASAL Last administered on 08/11/16 08:54; Admin Dose 1 SPRAY; Start 07/30/16 at 09:00 Carvedilol (Coreg) 25 mg BID PO Last administered on 08/11/16 08:55; Admin Dose 25 MG; Start 07/30/16 at 09:00 Clopidogrel Bisulfate (plaVIX) 75 mg DAILY PO Last administered on 08/11/16 08 :55; Admin Dose 75 MG; Start 07/30/16 at 09:00 Atorvastatin Calcium (Lipitor) 40 mg DAILY@21 PO Last administered on 20:23; Admin Dose 40 MG; Start 07/30/16 at 21:00 Acetaminophen (Tylenol Tab) 650 mg Q6H PRN PO PAIN AND OR ELEVATED TEMP Last administered on 08/10/16 11:35; Admin Dose 650 MG; Start 07/29/16 at 23:00 Al Hydrox/Mg Hydrox/Simethicone (Mag-Al Plus) 30 ml Q6H PRN PO GASTROINTESTINAL UPSET; Start 07/29/16 at 23:00 Alprazolam (Xanax) 0.25 mg HS PRN PO INSOMNIA Last administered on 08/10/16 20 :24; Admin Dose 0.25 MG; Start 07/29/16 at 23:00 Aripiprazole (Abilify) 2 mg DAILY PO Last administered on 08/11/16 08:54; Admin Dose 2 MG; Start 07/30/16 at 09:00 Aspirin (Halfprin) 81 mg DAILY PO Last administered on 08/11/16 08:55; Admin Dose 81 MG; Start 07/30/16 at 09:00 Docusate Sodium (Colace) 100 mg BID PO Last administered on 08/11/16 08:55; Admin Dose 100 MG; Start 07/30/16 at 09:00 Senna (Senokot) 1 tab HS PO Last administered on 08/10/16 20:23; Admin Dose 1 TAB; Start 07/30/16 at 21:00 Lactulose (Enulose) 20 gm DAILY PRN PO CONSTIPATION Last administered on 09:04; Admin Dose 20 GM; Start 07/29/16 at 23:00 Bisacodyl (Dulcolax Supp) 10 mg DAILY PRN [place] CONSTIPATION; Start 07/29/16 at 23 :00 Benzocaine (Orajel) 1 applic TID PRN MM for toothache Last administered on 08/06 10:59; Admin Dose 1 APPLIC; Start 08/05/16 at 13:00 Citric Acid/ Sodium Citrate (Bicitra) 30 ml BID PO Last administered on 08:54; Admin Dose 30 ML; Start 08/09/16 at 21:00 Ferrous Sulfate (Ferrous Sulfate (Ec)) 325 mg BID PO Last administered on 08:55; Admin Dose 325 MG; Start 08/10/16 at 21:00 Assessment/Plan Chief Complaint/Hosp Course Assessment 1. 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 Anemia likely of chronic disease 3. Renal insufficiency with metabolic acidosis Plan 1. Patient has declined MRI with contrast. Noncontrast study results were discussed with primary oncologist Dr. Gonzalez. At present he does not think she needs further therapy acutely 2. Continue physical therapy 3. Start iron replacement therapy 4. Hematology recommendations if hemoglobin continues to drop 5. Continue renal recommendations consider replacement of bicarbonate Problems: JEMIMA LUNA MD, [facility] Aug 11, 2016 11:43
[2016-08-11] MEDS: ACETAMINOPHEN 325 MG TAB PO PRN ×2 (12:14→17:50)
--- NOTE | 2016-08-11 18:43 | CONS ---
Date/Time of Note Date/Time of Note DATE: 08/11/16 TIME: 18:43 Assessment/Plan Assessment/Plan Chief Complaint/Hosp Course CKD w raul ANEMIA METABOLIC ACIDOSIS hyperkalemia better S/P HIP SURGERY PLAN F/U BMP kayexalate prn pt/ot iv fluid ck bmp BICITRA tid Problems: Consultation Date/Type/Reason Admit Date/Time Jul 29, 2016 at 21:59 Type of Consultation: renal 24 HR Interval Summary Constitutional: no complaints Exam/Review of Systems Vital Signs Vitals Vital Signs Date Time Temp Pulse Resp B/P Pulse Ox O2 Delivery O2 Flow Rate FiO2 08/11/16 08:07 98.4 84 18 123/55 96 Intake and Output 08/10/16 08/10/16 08/11/16 15:00 23:00 07:00 Intake Total 480 ml 240 ml Output Total 650 ml Balance 480 ml -410 ml Exam Respiratory: clear to auscultation Cardiovascular: regular rate and rhythm Extremities: No edema Results Result Diagram: 08/11/16 0610 08/11/16 0610 Results 24 hrs Laboratory Tests Test 08/10/16 20:04 08/11/16 06:10 08/11/16 07:28 08/11/16 11:49 Bedside Glucose 151 115 252 H White Blood Count 5.5 Red Blood Count 2.75 L Hemoglobin 8.0 L Hematocrit 25.6 L Mean Corpuscular Volume 93.1 Mean Corpuscular Hemoglobin 29.1 Mean Corpuscular Hemoglobin Concent 31.3 L Red Cell Distribution Width 16.3 H Platelet Count 172 Mean Platelet Volume 10.5 H Neutrophils % 57.2 Lymphocytes % 21.9 Monocytes % 10.2 Eosinophils % 8.4 H Basophils % 0.7 Nucleated Red Blood Cells % 0.0 Neutrophils # 3.1 Lymphocytes # 1.2 Monocytes # 0.6 Eosinophils # 0.5 Basophils # 0.0 Nucleated Red Blood Cells # 0.0 Sodium Level 138 Potassium Level 5.0 Chloride Level 109 Carbon Dioxide Level 16 L Anion Gap 18 H Blood Urea Nitrogen 55 H Creatinine 2.04 H Glucose Level 122 Calcium Level 8.9 Phosphorus Level 3.4 Magnesium Level 2.1 Test 08/11/16 17:01 Bedside Glucose 142 Medications Medications Current Medications Sertraline HCl (Zoloft) 50 mg DAILY PO Last administered on 08/11/16t 08:55; Admin Dose 50 MG; Start 07/30/16 at 09:00 Pantoprazole (Protonix Tab) 40 mg DAILY@06 PO Last administered on 08/11/16 06 :27; Admin Dose 40 MG; Start 07/30/16 at 06:00 Carbidopa/Levodopa (Sinemet (25/ 100)) 1 tab DAILY PO Last administered on 08/11 08:54; Admin Dose 1 TAB; Start 07/30/16 at 09:00 Loratadine (Claritin) 10 mg DAILY PO Last administered on 08/11/16 08:55; Admin Dose 10 MG; Start 07/30/16 at 09:00 Meclizine HCl (Antivert) 25 mg Q12H PRN PO DIZZINESS; Start 07/29/16 at 22:45 Miscellaneous Information 1 ea NOTE XX ; Start 07/29/16 at 22:45 Glucose (Glutose) 15 gm Q15M PRN PO DECREASED GLUCOSE; Start 07/29/16 at 22:45 Glucose (Glutose) 22.5 gm Q15M PRN PO DECREASED GLUCOSE; Start 07/29/16 at 22: 45 Dextrose (D50w Syringe) 25 ml Q15M PRN IV DECREASED GLUCOSE; Start 07/29/16 at 22:45 Dextrose (D50w Syringe) 50 ml Q15M PRN IV DECREASED GLUCOSE; Start 07/29/16 at 22:45 Glucagon (Glucagen) 1 mg Q15M PRN IM DECREASED GLUCOSE; Start 07/29/16 at 22:45 Glucose (Glutose) 15 gm Q15M PRN BUCCAL DECREASED GLUCOSE; Start 07/29/16 at 22 :45 Heparin Sodium (Porcine) (Heparin (5000 Units/0.5 ml)) 5,000 unit BID SC Last administered on 08/11/16 08:57; Admin Dose 5,000 UNIT; Start 07/30/16 at 09:00 Diagnostic Test (Pha) (Accucheck) 1 ea 02 XX Last administered on 08/09/16 02: 15; Admin Dose 1 EA; Start 07/30/16 at 02:00 Fluticasone Propionate (Flonase 0.05% Nasal) 1 spray BID NASAL Last administered on 08/11/16 08:54; Admin Dose 1 SPRAY; Start 07/30/16 at 09:00 Carvedilol (Coreg) 25 mg BID PO Last administered on 08/11/16 08:55; Admin Dose 25 MG; Start 07/30/16 at 09:00 Clopidogrel Bisulfate (plaVIX) 75 mg DAILY PO Last administered on 08/11/16 08 :55; Admin Dose 75 MG; Start 07/30/16 at 09:00 Atorvastatin Calcium (Lipitor) 40 mg DAILY@21 PO Last administered on 20:23; Admin Dose 40 MG; Start 07/30/16 at 21:00 Acetaminophen (Tylenol Tab) 650 mg Q6H PRN PO PAIN AND OR ELEVATED TEMP Last administered on 08/11/16 17:50; Admin Dose 650 MG; Start 07/29/16 at 23:00 Al Hydrox/Mg Hydrox/Simethicone (Mag-Al Plus) 30 ml Q6H PRN PO GASTROINTESTINAL UPSET; Start 07/29/16 at 23:00 Alprazolam (Xanax) 0.25 mg HS PRN PO INSOMNIA Last administered on 08/10/16 20 :24; Admin Dose 0.25 MG; Start 07/29/16 at 23:00 Aripiprazole (Abilify) 2 mg DAILY PO Last administered on 08/11/16 08:54; Admin Dose 2 MG; Start 07/30/16 at 09:00 Aspirin (Halfprin) 81 mg DAILY PO Last administered on 08/11/16 08:55; Admin Dose 81 MG; Start 07/30/16 at 09:00 Docusate Sodium (Colace) 100 mg BID PO Last administered on 08/11/16 08:55; Admin Dose 100 MG; Start 07/30/16 at 09:00 Senna (Senokot) 1 tab HS PO Last administered on 08/10/16 20:23; Admin Dose 1 TAB; Start 07/30/16 at 21:00 Lactulose (Enulose) 20 gm DAILY PRN PO CONSTIPATION Last administered on 09:04; Admin Dose 20 GM; Start 07/29/16 at 23:00 Bisacodyl (Dulcolax Supp) 10 mg DAILY PRN [place] CONSTIPATION; Start 07/29/16 at 23 :00 Benzocaine (Orajel) 1 applic TID PRN MM for toothache Last administered on 08/06 10:59; Admin Dose 1 APPLIC; Start 08/05/16 at 13:00 Citric Acid/ Sodium Citrate (Bicitra) 30 ml BID PO Last administered on 08:54; Admin Dose 30 ML; Start 08/09/16 at 21:00 Ferrous Sulfate (Ferrous Sulfate (Ec)) 325 mg BID PO Last administered on 08:55; Admin Dose 325 MG; Start 08/10/16 at 21:00 PERRY ALVARES MD Aug 11, 2016 18:43
[2016-08-11 20:13] VITALS: BP 100/47; RESP 19
[2016-08-11] MEDS: ALPRAZOLAM 0.25 MG TAB PO PRN (21:11)
[2016-08-11] MEDS: ATORVASTATIN 40 MG TAB PO SCH (21:11)
[2016-08-11] MEDS: SENNA TAB PO SCH (21:11)
[2016-08-12] MEDS: LEVALBUTEROL (HFA) 15 GM INHALER INH SCH ×4 (02:00→20:00)
[2016-08-12] MEDS: ACCUCHECK AT 2AM (Patients on SS coverage) XX SCH (02:00)
[2016-08-12] MEDS: PANTOPRAZOLE (EC) 40 MG TAB PO SCH (05:43)
[2016-08-12] MEDS: Insulin NOVOLOG SS MILD Algorithm (SS with meals and bedtime) SC SCH ×4 (07:05→20:53)
[2016-08-12 07:12] LABS: POTASSIUM 5.4 mmol/L (3.5-5.1)
[2016-08-12 07:15] LABS: CREATININE 2.06 mg/dl (0.44-1.00)
[2016-08-12] MEDS: FLUTICASONE 0.05% 16 GM NAS SPRAY NASAL SCH ×2 (08:30→20:28)
[2016-08-12] MEDS: CITRIC ACID/NA CITRATE 30 ML CUP PO SCH ×3 (08:31→20:28)
[2016-08-12] MEDS: DOCUSATE SODIUM 100 MG CAP PO SCH ×2 (08:32→20:27)
[2016-08-12] MEDS: SERTRALINE 50 MG TAB PO SCH (08:32)
[2016-08-12] MEDS: FERROUS SULFATE (EC) 325 MG TAB PO SCH ×2 (08:32→20:27)
[2016-08-12] MEDS: ASPIRIN (EC) 81 MG TAB PO SCH (08:32)
[2016-08-12] MEDS: CLOPIDOGREL 75 MG TAB PO SCH (08:32)
[2016-08-12] MEDS: HEPARIN 5,000 UNIT/0.5 ML SYG SC SCH ×2 (08:32→20:53)
[2016-08-12] MEDS: CARBIDOPA/LEVODOPA (25/100) TAB PO SCH (08:32)
[2016-08-12] MEDS: LORATADINE 10 MG TAB PO SCH (08:32)
[2016-08-12] MEDS: ARIPIPRAZOLE 2 MG TAB PO SCH (08:32)
[2016-08-12] MEDS: ACETAMINOPHEN 325 MG TAB PO PRN ×3 (08:33→22:57)
[2016-08-12 09:54] VITALS: BP 114/56; RESP 18
--- NOTE | 2016-08-12 12:32 | CONS ---
Date/Time of Note Date/Time of Note DATE: 08/12/16 TIME: 12:31 Consult Date/Type/Reason Admit Date/Time Jul 29, 2016 at 21:59 Type of Consultation: renal Subjective no new complaints Objective pulm-cta min assist transfer and ambulation Vital Signs Date Time Temp Pulse Resp B/P Pulse Ox O2 Delivery O2 Flow Rate FiO2 08/12/16 09:54 98.3 85 18 114/56 97 Intake and Output 08/11/16 08/11/16 08/12/16 14:59 22:59 06:59 Intake Total 480 ml 240 ml Output Total 402 ml 250 ml Balance 78 ml -10 ml Results/Medications Result Diagram: 08/11/16 0610 08/12/16 0600 Results 24 hrs Laboratory Tests Test 08/11/16 17:01 08/11/16 21:20 08/12/16 06:00 08/12/16 07:32 Bedside Glucose 142 166 135 Sodium Level 141 Potassium Level 5.4 H Chloride Level 110 Carbon Dioxide Level 19 L Anion Gap 17 H Blood Urea Nitrogen 61 H Creatinine 2.06 H Glucose Level 125 Calcium Level 9.0 Test 08/12/16 12:13 Bedside Glucose 210 Medications Current Medications Sertraline HCl (Zoloft) 50 mg DAILY PO Last administered on 08/12/16 08:32; Admin Dose 50 MG; Start 07/30/16 at 09:00 Pantoprazole (Protonix Tab) 40 mg DAILY@06 PO Last administered on 08/12/16 05 :43; Admin Dose 40 MG; Start 07/30/16 at 06:00 Carbidopa/Levodopa (Sinemet (25/ 100)) 1 tab DAILY PO Last administered on 08/12 08:32; Admin Dose 1 TAB; Start 07/30/16 at 09:00 Loratadine (Claritin) 10 mg DAILY PO Last administered on 08/12/16 08:32; Admin Dose 10 MG; Start 07/30/16 at 09:00 Meclizine HCl (Antivert) 25 mg Q12H PRN PO DIZZINESS; Start 07/29/16 at 22:45 Miscellaneous Information 1 ea NOTE XX ; Start 07/29/16 at 22:45 Glucose (Glutose) 15 gm Q15M PRN PO DECREASED GLUCOSE; Start 07/29/16 at 22:45 Glucose (Glutose) 22.5 gm Q15M PRN PO DECREASED GLUCOSE; Start 07/29/16 at 22: 45 Dextrose (D50w Syringe) 25 ml Q15M PRN IV DECREASED GLUCOSE; Start 07/29/16 at 22:45 Dextrose (D50w Syringe) 50 ml Q15M PRN IV DECREASED GLUCOSE; Start 07/29/16 at 22:45 Glucagon (Glucagen) 1 mg Q15M PRN IM DECREASED GLUCOSE; Start 07/29/16 at 22:45 Glucose (Glutose) 15 gm Q15M PRN BUCCAL DECREASED GLUCOSE; Start 07/29/16 at 22 :45 Heparin Sodium (Porcine) (Heparin (5000 Units/0.5 ml)) 5,000 unit BID SC Last administered on 08/12/16 08:32; Admin Dose 5,000 UNIT; Start 07/30/16 at 09:00 Diagnostic Test (Pha) (Accucheck) 1 ea 02 XX Last administered on 08/09/16 02: 15; Admin Dose 1 EA; Start 07/30/16 at 02:00 Fluticasone Propionate (Flonase 0.05% Nasal) 1 spray BID NASAL Last administered on 08/12/16 08:30; Admin Dose 1 SPRAY; Start 07/30/16 at 09:00 Carvedilol (Coreg) 25 mg BID PO Last administered on 08/12/16 08:33; Admin Dose 25 MG; Start 07/30/16 at 09:00 Clopidogrel Bisulfate (plaVIX) 75 mg DAILY PO Last administered on 08/12/16 08 :32; Admin Dose 75 MG; Start 07/30/16 at 09:00 Atorvastatin Calcium (Lipitor) 40 mg DAILY@21 PO Last administered on 21:11; Admin Dose 40 MG; Start 07/30/16 at 21:00 Acetaminophen (Tylenol Tab) 650 mg Q6H PRN PO PAIN AND OR ELEVATED TEMP Last administered on 08/12/16 08:33; Admin Dose 650 MG; Start 07/29/16 at 23:00 Al Hydrox/Mg Hydrox/Simethicone (Mag-Al Plus) 30 ml Q6H PRN PO GASTROINTESTINAL UPSET; Start 07/29/16 at 23:00 Alprazolam (Xanax) 0.25 mg HS PRN PO INSOMNIA Last administered on 08/11/16 21 :11; Admin Dose 0.25 MG; Start 07/29/16 at 23:00 Aripiprazole (Abilify) 2 mg DAILY PO Last administered on 08/12/16 08:32; Admin Dose 2 MG; Start 07/30/16 at 09:00 Aspirin (Halfprin) 81 mg DAILY PO Last administered on 08/12/16 08:32; Admin Dose 81 MG; Start 07/30/16 at 09:00 Docusate Sodium (Colace) 100 mg BID PO Last administered on 08/12/16 08:32; Admin Dose 100 MG; Start 07/30/16 at 09:00 Senna (Senokot) 1 tab HS PO Last administered on 08/11/16 21:11; Admin Dose 1 TAB; Start 07/30/16 at 21:00 Lactulose (Enulose) 20 gm DAILY PRN PO CONSTIPATION Last administered on 09:04; Admin Dose 20 GM; Start 07/29/16 at 23:00 Bisacodyl (Dulcolax Supp) 10 mg DAILY PRN OR CONSTIPATION; Start 07/29/16 at 23 :00 Benzocaine (Orajel) 1 applic TID PRN MM for toothache Last administered on 08/06 10:59; Admin Dose 1 APPLIC; Start 08/05/16 at 13:00 Ferrous Sulfate (Ferrous Sulfate (Ec)) 325 mg BID PO Last administered on 08:32; Admin Dose 325 MG; Start 08/10/16 at 21:00 Citric Acid/ Sodium Citrate (Bicitra) 30 ml TID PO Last administered on 08:31; Admin Dose 30 ML; Start 08/11/16 at 21:00 Assessment/Plan Additional Assessment/Plan Rehab- Right hip subcapital fracture status post hemiarthroplasty. Continue rehab, dc planning Neck- Patient with h.o. of bony mets from breast Ca Parkinson's ds Dysphagia - speech therapy History of breast cancer with bone metastases. Anemia. History of myocardial infarction and coronary artery bypass graft. Diabetes mellitus. Hypertension. Dyslipidemia. REBEKAH CRAFT MD Aug 12, 2016 12:32
--- NOTE | 2016-08-12 14:31 | CONS ---
Date/Time of Note Date/Time of Note DATE: 08/12/16 TIME: 14:31 Consult Date/Type/Reason Admit Date/Time Jul 29, 2016 at 21:59 Type of Consultation: pulmonary Subjective Patient comfortable this morning sleeping family at bedside Objective Vital Signs Date Time Temp Pulse Resp B/P Pulse Ox O2 Delivery O2 Flow Rate FiO2 08/12/16 09:54 98.3 85 18 114/56 97 Intake and Output 08/11/16 08/11/16 08/12/16 15:00 23:00 07:00 Intake Total 480 ml 240 ml Output Total 402 ml 250 ml Balance 78 ml -10 ml Exam GENERAL: Elderly Serbian lady comfortable at rest VITAL SIGNS: per chart NECK: Supple. No JVD or lymphadenopathy. CARDIAC EXAM: S1, S2. No added sounds or murmurs. CHEST: clear bilaterally, No added sounds, rales or wheezes ABDOMEN: Soft, nontender. No guarding or rebound. EXTREMITIES: No cyanosis, clubbing or edema. NEUROLOGIC: Generalized weakness. No focal deficits. Results/Medications Result Diagram: 08/11/16 0610 08/12/16 0600 Results 24 hrs Laboratory Tests Test 08/11/16 17:01 08/11/16 21:20 08/12/16 06:00 08/12/16 07:32 Bedside Glucose 142 166 135 Sodium Level 141 Potassium Level 5.4 H Chloride Level 110 Carbon Dioxide Level 19 L Anion Gap 17 H Blood Urea Nitrogen 61 H Creatinine 2.06 H Glucose Level 125 Calcium Level 9.0 Test 08/12/16 12:13 Bedside Glucose 210 Medications Current Medications Sertraline HCl (Zoloft) 50 mg DAILY PO Last administered on 08/12/16 08:32; Admin Dose 50 MG; Start 07/30/16 at 09:00 Pantoprazole (Protonix Tab) 40 mg DAILY@06 PO Last administered on 08/12/16 05 :43; Admin Dose 40 MG; Start 07/30/16 at 06:00 Carbidopa/Levodopa (Sinemet (25/ 100)) 1 tab DAILY PO Last administered on 08/12 08:32; Admin Dose 1 TAB; Start 07/30/16 at 09:00 Loratadine (Claritin) 10 mg DAILY PO Last administered on 08/12/16 08:32; Admin Dose 10 MG; Start 07/30/16 at 09:00 Meclizine HCl (Antivert) 25 mg Q12H PRN PO DIZZINESS; Start 07/29/16 at 22:45 Miscellaneous Information 1 ea NOTE XX ; Start 07/29/16 at 22:45 Glucose (Glutose) 15 gm Q15M PRN PO DECREASED GLUCOSE; Start 07/29/16 at 22:45 Glucose (Glutose) 22.5 gm Q15M PRN PO DECREASED GLUCOSE; Start 07/29/16 at 22: 45 Dextrose (D50w Syringe) 25 ml Q15M PRN IV DECREASED GLUCOSE; Start 07/29/16 at 22:45 Dextrose (D50w Syringe) 50 ml Q15M PRN IV DECREASED GLUCOSE; Start 07/29/16 at 22:45 Glucagon (Glucagen) 1 mg Q15M PRN IM DECREASED GLUCOSE; Start 07/29/16 at 22:45 Glucose (Glutose) 15 gm Q15M PRN BUCCAL DECREASED GLUCOSE; Start 07/29/16 at 22 :45 Heparin Sodium (Porcine) (Heparin (5000 Units/0.5 ml)) 5,000 unit BID SC Last administered on 08/12/16 08:32; Admin Dose 5,000 UNIT; Start 07/30/16 at 09:00 Diagnostic Test (Pha) (Accucheck) 1 ea 02 XX Last administered on 08/09/16 02: 15; Admin Dose 1 EA; Start 07/30/16 at 02:00 Fluticasone Propionate (Flonase 0.05% Nasal) 1 spray BID NASAL Last administered on 08/12/16 08:30; Admin Dose 1 SPRAY; Start 07/30/16 at 09:00 Carvedilol (Coreg) 25 mg BID PO Last administered on 08/12/16 08:33; Admin Dose 25 MG; Start 07/30/16 at 09:00 Clopidogrel Bisulfate (plaVIX) 75 mg DAILY PO Last administered on 08/12/16 08 :32; Admin Dose 75 MG; Start 07/30/16 at 09:00 Atorvastatin Calcium (Lipitor) 40 mg DAILY@21 PO Last administered on 21:11; Admin Dose 40 MG; Start 07/30/16 at 21:00 Acetaminophen (Tylenol Tab) 650 mg Q6H PRN PO PAIN AND OR ELEVATED TEMP Last administered on 08/12/16 08:33; Admin Dose 650 MG; Start 07/29/16 at 23:00 Al Hydrox/Mg Hydrox/Simethicone (Mag-Al Plus) 30 ml Q6H PRN PO GASTROINTESTINAL UPSET; Start 07/29/16 at 23:00 Alprazolam (Xanax) 0.25 mg HS PRN PO INSOMNIA Last administered on 08/11/16 21 :11; Admin Dose 0.25 MG; Start 07/29/16 at 23:00 Aripiprazole (Abilify) 2 mg DAILY PO Last administered on 08/12/16 08:32; Admin Dose 2 MG; Start 07/30/16 at 09:00 Aspirin (Halfprin) 81 mg DAILY PO Last administered on 08/12/16 08:32; Admin Dose 81 MG; Start 07/30/16 at 09:00 Docusate Sodium (Colace) 100 mg BID PO Last administered on 08/12/16 08:32; Admin Dose 100 MG; Start 07/30/16 at 09:00 Senna (Senokot) 1 tab HS PO Last administered on 08/11/16 21:11; Admin Dose 1 TAB; Start 07/30/16 at 21:00 Lactulose (Enulose) 20 gm DAILY PRN PO CONSTIPATION Last administered on 09:04; Admin Dose 20 GM; Start 07/29/16 at 23:00 Bisacodyl (Dulcolax Supp) 10 mg DAILY PRN [place] CONSTIPATION; Start 07/29/16 at 23 :00 Benzocaine (Orajel) 1 applic TID PRN MM for toothache Last administered on 08/06 10:59; Admin Dose 1 APPLIC; Start 08/05/16 at 13:00 Ferrous Sulfate (Ferrous Sulfate (Ec)) 325 mg BID PO Last administered on 08:32; Admin Dose 325 MG; Start 08/10/16 at 21:00 Citric Acid/ Sodium Citrate (Bicitra) 30 ml TID PO Last administered on 13:04; Admin Dose 30 ML; Start 08/11/16 at 21:00 Assessment/Plan Chief Complaint/Hosp Course Assessment 1. 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 Anemia likely of chronic disease 3. Renal insufficiency with metabolic acidosis Plan 1. Patient has declined MRI with contrast. Noncontrast study results were discussed with primary oncologist Dr. Gonzalez. At present he does not think she needs further therapy acutely 2. Continue physical therapy 3. Start iron replacement therapy 4. Hematology recommendations if hemoglobin continues to drop 5. Continue renal recommendations consider replacement of bicarbonate Discharge planning Problems: JEMIMA LUNA MD, [facility] Aug 12, 2016 14:31
[2016-08-12] MEDS ORDERED: BETAMETHASONE/CLOTRIMAZOLE 15 GM CR TOP PRN (15:00)
--- NOTE | 2016-08-12 17:23 | CONS ---
DATE OF ADMISSION: 07/29/2016 DATE OF CONSULTATION: 08/12/2016 PSYCHOLOGY -- INDIVIDUAL SESSION [id number] This is a followup on a patient who was seen last week. The patient was seen up in her wheelchair. Patient reports that she is still very frustrated, depressed and confused. MOOD AND AFFECT: The patient's sister Erica is present again and did corroborate this. The patient reports that she is trying her best. DISCUSSION: The patient's sister did say that she has been depressed for a very long time, even bef ore she came into the hospital. The patient has been on medications for this. I worked with the pa ramez to try to continue to encourage her to work hard on her overall medical condition as well as t ry and deal with her underlying level of depression. Dictated By: ANGELA VALENCIA PHD RK/FRANCIE Conf#: [id number] DID#: [id number]
[2016-08-12] MEDS ORDERED: NA POLYST SULFON 15 GM/60 ML BTL PO ONE (19:30)
--- NOTE | 2016-08-12 19:32 | CONS ---
Date/Time of Note Date/Time of Note DATE: 08/12/16 TIME: 19:31 Assessment/Plan Assessment/Plan Chief Complaint/Hosp Course CKD w raul stable ANEMIA METABOLIC ACIDOSIS hyperkalemia S/P HIP SURGERY PLAN F/U BMP kayexalate prn pt/ot iv fluid ck bmp BICITRA tid Problems: Consultation Date/Type/Reason Admit Date/Time Jul 29, 2016 at 21:59 Type of Consultation: renal 24 HR Interval Summary Constitutional: no complaints Exam/Review of Systems Vital Signs Vitals Vital Signs Date Time Temp Pulse Resp B/P Pulse Ox O2 Delivery O2 Flow Rate FiO2 08/12/16 09:54 98.3 85 18 114/56 97 Intake and Output 08/11/16 08/11/16 08/12/16 15:00 23:00 07:00 Intake Total 480 ml 240 ml Output Total 402 ml 250 ml Balance 78 ml -10 ml Exam Neck: supple Respiratory: clear to auscultation Cardiovascular: regular rate and rhythm Gastrointestinal: soft Musculoskeletal: nl extremities to inspection Results Result Diagram: 08/11/16 0610 08/12/16 0600 Results 24 hrs Laboratory Tests Test 08/11/16 21:20 08/12/16 06:00 08/12/16 07:32 08/12/16 12:13 Bedside Glucose 166 135 210 Sodium Level 141 Potassium Level 5.4 H Chloride Level 110 Carbon Dioxide Level 19 L Anion Gap 17 H Blood Urea Nitrogen 61 H Creatinine 2.06 H Glucose Level 125 Calcium Level 9.0 Test 08/12/16 17:21 Bedside Glucose 152 Medications Medications Current Medications Sertraline HCl (Zoloft) 50 mg DAILY PO Last administered on 08/12/16 08:32; Admin Dose 50 MG; Start 07/30/16 at 09:00 Pantoprazole (Protonix Tab) 40 mg DAILY@06 PO Last administered on 08/12/16 05 :43; Admin Dose 40 MG; Start 07/30/16 at 06:00 Carbidopa/Levodopa (Sinemet (25/ 100)) 1 tab DAILY PO Last administered on 08/12 08:32; Admin Dose 1 TAB; Start 07/30/16 at 09:00 Loratadine (Claritin) 10 mg DAILY PO Last administered on 08/12/16 08:32; Admin Dose 10 MG; Start 07/30/16 at 09:00 Meclizine HCl (Antivert) 25 mg Q12H PRN PO DIZZINESS; Start 07/29/16 at 22:45 Miscellaneous Information 1 ea NOTE XX ; Start 07/29/16 at 22:45 Glucose (Glutose) 15 gm Q15M PRN PO DECREASED GLUCOSE; Start 07/29/16 at 22:45 Glucose (Glutose) 22.5 gm Q15M PRN PO DECREASED GLUCOSE; Start 07/29/16 at 22: 45 Dextrose (D50w Syringe) 25 ml Q15M PRN IV DECREASED GLUCOSE; Start 07/29/16 at 22:45 Dextrose (D50w Syringe) 50 ml Q15M PRN IV DECREASED GLUCOSE; Start 07/29/16 at 22:45 Glucagon (Glucagen) 1 mg Q15M PRN IM DECREASED GLUCOSE; Start 07/29/16 at 22:45 Glucose (Glutose) 15 gm Q15M PRN BUCCAL DECREASED GLUCOSE; Start 07/29/16 at 22 :45 Heparin Sodium (Porcine) (Heparin (5000 Units/0.5 ml)) 5,000 unit BID SC Last administered on 08/12/16 08:32; Admin Dose 5,000 UNIT; Start 07/30/16 at 09:00 Diagnostic Test (Pha) (Accucheck) 1 ea 02 XX Last administered on 08/09/16 02: 15; Admin Dose 1 EA; Start 07/30/16 at 02:00 Fluticasone Propionate (Flonase 0.05% Nasal) 1 spray BID NASAL Last administered on 08/12/16 08:30; Admin Dose 1 SPRAY; Start 07/30/16 at 09:00 Carvedilol (Coreg) 25 mg BID PO Last administered on 08/12/16 08:33; Admin Dose 25 MG; Start 07/30/16 at 09:00 Clopidogrel Bisulfate (plaVIX) 75 mg DAILY PO Last administered on 08/12/16 08 :32; Admin Dose 75 MG; Start 07/30/16 at 09:00 Atorvastatin Calcium (Lipitor) 40 mg DAILY@21 PO Last administered on 21:11; Admin Dose 40 MG; Start 07/30/16 at 21:00 Acetaminophen (Tylenol Tab) 650 mg Q6H PRN PO PAIN AND OR ELEVATED TEMP Last administered on 08/12/16 18:46; Admin Dose 650 MG; Start 07/29/16 at 23:00 Al Hydrox/Mg Hydrox/Simethicone (Mag-Al Plus) 30 ml Q6H PRN PO GASTROINTESTINAL UPSET; Start 07/29/16 at 23:00 Alprazolam (Xanax) 0.25 mg HS PRN PO INSOMNIA Last administered on 08/11/16 21 :11; Admin Dose 0.25 MG; Start 07/29/16 at 23:00 Aripiprazole (Abilify) 2 mg DAILY PO Last administered on 08/12/16 08:32; Admin Dose 2 MG; Start 07/30/16 at 09:00 Aspirin (Halfprin) 81 mg DAILY PO Last administered on 08/12/16 08:32; Admin Dose 81 MG; Start 07/30/16 at 09:00 Docusate Sodium (Colace) 100 mg BID PO Last administered on 08/12/16 08:32; Admin Dose 100 MG; Start 07/30/16 at 09:00 Senna (Senokot) 1 tab HS PO Last administered on 08/11/16 21:11; Admin Dose 1 TAB; Start 07/30/16 at 21:00 Lactulose (Enulose) 20 gm DAILY PRN PO CONSTIPATION Last administered on 09:04; Admin Dose 20 GM; Start 07/29/16 at 23:00 Bisacodyl (Dulcolax Supp) 10 mg DAILY PRN [place] CONSTIPATION; Start 07/29/16 at 23 :00 Benzocaine (Orajel) 1 applic TID PRN MM for toothache Last administered on 08/06 10:59; Admin Dose 1 APPLIC; Start 08/05/16 at 13:00 Ferrous Sulfate (Ferrous Sulfate (Ec)) 325 mg BID PO Last administered on 08:32; Admin Dose 325 MG; Start 08/10/16 at 21:00 Citric Acid/ Sodium Citrate (Bicitra) 30 ml TID PO Last administered on 13:04; Admin Dose 30 ML; Start 08/11/16 at 21:00 Betamethasone/ Clotrimazole (Lotrisone Cr) 1 applic BID PRN TOP WITH DIAPER CHANGES; Start 08/12/16 at 15:00 PERRY ALVARES MD Aug 12, 2016 19:32
[2016-08-12 19:43] VITALS: BP 99/50; RESP 20
[2016-08-12] MEDS: ATORVASTATIN 40 MG TAB PO SCH (20:27)
[2016-08-12] MEDS: SENNA TAB PO SCH (20:28)
[2016-08-12] MEDS: ALPRAZOLAM 0.25 MG TAB PO PRN (22:57)
[2016-08-13] MEDS: LEVALBUTEROL (HFA) 15 GM INHALER INH SCH ×3 (02:00→13:34)
[2016-08-13] MEDS: ACCUCHECK AT 2AM (Patients on SS coverage) XX SCH (02:00)
[2016-08-13] MEDS: PANTOPRAZOLE (EC) 40 MG TAB PO SCH (05:41)
[2016-08-13] MEDS: Insulin NOVOLOG SS MILD Algorithm (SS with meals and bedtime) SC SCH ×2 (07:05→12:31)
[2016-08-13 07:30] VITALS: BP 114/56; RESP 18
[2016-08-13] MEDS: FLUTICASONE 0.05% 16 GM NAS SPRAY NASAL SCH (09:25)
[2016-08-13] MEDS: CITRIC ACID/NA CITRATE 30 ML CUP PO SCH ×2 (09:25→12:32)
[2016-08-13] MEDS: HEPARIN 5,000 UNIT/0.5 ML SYG SC SCH (09:26)
[2016-08-13] MEDS: SERTRALINE 50 MG TAB PO SCH (09:27)
[2016-08-13] MEDS: CLOPIDOGREL 75 MG TAB PO SCH (09:27)
[2016-08-13] MEDS: CARBIDOPA/LEVODOPA (25/100) TAB PO SCH (09:27)
[2016-08-13] MEDS: ARIPIPRAZOLE 2 MG TAB PO SCH (09:27)
[2016-08-13] MEDS: LORATADINE 10 MG TAB PO SCH (09:27)
[2016-08-13] MEDS: ASPIRIN (EC) 81 MG TAB PO SCH (09:28)
[2016-08-13] MEDS: FERROUS SULFATE (EC) 325 MG TAB PO SCH (09:28)
[2016-08-13] MEDS: DOCUSATE SODIUM 100 MG CAP PO SCH (09:28)
--- NOTE | 2016-08-13 10:42 | CONS ---
Date/Time of Note Date/Time of Note DATE: 08/13/16 TIME: 10:42 Consult Date/Type/Reason Admit Date/Time Jul 29, 2016 at 21:59 Type of Consultation: internal medicine Subjective Patient remained stable no new events Objective Vital Signs Date Time Temp Pulse Resp B/P Pulse Ox O2 Delivery O2 Flow Rate FiO2 08/12/16 19:43 98.2 92 20 99/50 98 Intake and Output 08/12/16 08/12/16 08/13/16 15:00 23:00 07:00 Intake Total 480 ml 240 ml 500 ml Output Total 400 ml 200 ml 1 ml Balance 80 ml 40 ml 499 ml Exam GENERAL: Elderly [place] lady comfortable at rest VITAL SIGNS: per chart NECK: Supple. No JVD or lymphadenopathy. CARDIAC EXAM: S1, S2. No added sounds or murmurs. CHEST: clear bilaterally, No added sounds, rales or wheezes ABDOMEN: Soft, nontender. No guarding or rebound. EXTREMITIES: No cyanosis, clubbing or edema. NEUROLOGIC: Generalized weakness. No focal deficits. Results/Medications Result Diagram: 08/11/16 0610 08/12/16 0600 Results 24 hrs Laboratory Tests Test 08/12/16 12:13 08/12/16 17:21 08/12/16 20:33 08/13/16 01:41 Bedside Glucose 210 152 186 147 Test 08/13/16 07:43 Bedside Glucose 125 Medications Current Medications Sertraline HCl (Zoloft) 50 mg DAILY PO Last administered on 08/13/16 09:27; Admin Dose 50 MG; Start 07/30/16 at 09:00 Pantoprazole (Protonix Tab) 40 mg DAILY@06 PO Last administered on 08/13/16 05 :41; Admin Dose 40 MG; Start 07/30/16 at 06:00 Carbidopa/Levodopa (Sinemet (25/ 100)) 1 tab DAILY PO Last administered on 08/13 09:27; Admin Dose 1 TAB; Start 07/30/16 at 09:00 Loratadine (Claritin) 10 mg DAILY PO Last administered on 08/13/16 09:27; Admin Dose 10 MG; Start 07/30/16 at 09:00 Meclizine HCl (Antivert) 25 mg Q12H PRN PO DIZZINESS; Start 07/29/16 at 22:45 Miscellaneous Information 1 ea NOTE XX ; Start 07/29/16 at 22:45 Glucose (Glutose) 15 gm Q15M PRN PO DECREASED GLUCOSE; Start 07/29/16 at 22:45 Glucose (Glutose) 22.5 gm Q15M PRN PO DECREASED GLUCOSE; Start 07/29/16 at 22: 45 Dextrose (D50w Syringe) 25 ml Q15M PRN IV DECREASED GLUCOSE; Start 07/29/16 at 22:45 Dextrose (D50w Syringe) 50 ml Q15M PRN IV DECREASED GLUCOSE; Start 07/29/16 at 22:45 Glucagon (Glucagen) 1 mg Q15M PRN IM DECREASED GLUCOSE; Start 07/29/16 at 22:45 Glucose (Glutose) 15 gm Q15M PRN BUCCAL DECREASED GLUCOSE; Start 07/29/16 at 22 :45 Heparin Sodium (Porcine) (Heparin (5000 Units/0.5 ml)) 5,000 unit BID SC Last administered on 08/13/16 09:26; Admin Dose 5,000 UNIT; Start 07/30/16 at 09:00 Diagnostic Test (Pha) (Accucheck) 1 ea 02 XX Last administered on 08/09/16 02: 15; Admin Dose 1 EA; Start 07/30/16 at 02:00 Fluticasone Propionate (Flonase 0.05% Nasal) 1 spray BID NASAL Last administered on 08/13/16 09:25; Admin Dose 1 SPRAY; Start 07/30/16 at 09:00 Carvedilol (Coreg) 25 mg BID PO Last administered on 08/13/16 09:29; Admin Dose 25 MG; Start 07/30/16 at 09:00 Clopidogrel Bisulfate (plaVIX) 75 mg DAILY PO Last administered on 08/13/16 09 :27; Admin Dose 75 MG; Start 07/30/16 at 09:00 Atorvastatin Calcium (Lipitor) 40 mg DAILY@21 PO Last administered on 20:27; Admin Dose 40 MG; Start 07/30/16 at 21:00 Acetaminophen (Tylenol Tab) 650 mg Q6H PRN PO PAIN AND OR ELEVATED TEMP Last administered on 08/12/16 22:57; Admin Dose 650 MG; Start 07/29/16 at 23:00 Al Hydrox/Mg Hydrox/Simethicone (Mag-Al Plus) 30 ml Q6H PRN PO GASTROINTESTINAL UPSET; Start 07/29/16 at 23:00 Alprazolam (Xanax) 0.25 mg HS PRN PO INSOMNIA Last administered on 08/12/16 22 :57; Admin Dose 0.25 MG; Start 07/29/16 at 23:00 Aripiprazole (Abilify) 2 mg DAILY PO Last administered on 08/13/16 09:27; Admin Dose 2 MG; Start 07/30/16 at 09:00 Aspirin (Halfprin) 81 mg DAILY PO Last administered on 08/13/16 09:28; Admin Dose 81 MG; Start 07/30/16 at 09:00 Docusate Sodium (Colace) 100 mg BID PO Last administered on 08/13/16 09:28; Admin Dose 100 MG; Start 07/30/16 at 09:00 Senna (Senokot) 1 tab HS PO Last administered on 08/12/16 20:28; Admin Dose 1 TAB; Start 07/30/16 at 21:00 Lactulose (Enulose) 20 gm DAILY PRN PO CONSTIPATION Last administered on 09:04; Admin Dose 20 GM; Start 07/29/16 at 23:00 Bisacodyl (Dulcolax Supp) 10 mg DAILY PRN DE CONSTIPATION; Start 07/29/16 at 23 :00 Benzocaine (Orajel) 1 applic TID PRN MM for toothache Last administered on 08/06 10:59; Admin Dose 1 APPLIC; Start 08/05/16 at 13:00 Ferrous Sulfate (Ferrous Sulfate (Ec)) 325 mg BID PO Last administered on 09:28; Admin Dose 325 MG; Start 08/10/16 at 21:00 Citric Acid/ Sodium Citrate (Bicitra) 30 ml TID PO Last administered on 09:25; Admin Dose 30 ML; Start 08/11/16 at 21:00 Betamethasone/ Clotrimazole (Lotrisone Cr) 1 applic BID PRN TOP WITH DIAPER CHANGES; Start 08/12/16 at 15:00 Assessment/Plan Chief Complaint/Hosp Course Assessment 1. 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 Anemia likely of chronic disease 3. Renal insufficiency with metabolic acidosis Plan 1. Patient has declined MRI with contrast. Noncontrast study results were discussed with primary oncologist Dr. Gonzalez. At present he does not think she needs further therapy acutely 2. Continue physical therapy 3. Start iron replacement therapy 4. Hematology recommendations if hemoglobin continues to drop 5. Continue renal recommendations consider replacement of bicarbonate Discharge planning Problems: JEMIMA LUNA MD, [facility] Aug 13, 2016 10:42
[2016-08-13] MEDS: ACETAMINOPHEN 325 MG TAB PO PRN (11:19)
[2016-08-13 11:26] LABS: POTASSIUM 4.6 mmol/L (3.5-5.1)
[2016-08-13 11:28] LABS: CREATININE 2.03 mg/dl (0.44-1.00)
[2016-08-13 11:29] LABS: CALCIUM 8.4 mg/dl (8.4-10.2)
--- NOTE | 2016-08-18 14:02 | DS ---
DATE OF ADMISSION: 07/29/2016 DATE OF DISCHARGE: 08/13/2016 ADMISSION DIAGNOSES: 1. Right hip subcapital fracture status post hemiarthroplasty. 2. Parkinson's disease. 3. Dysphagia. 4. History of breast cancer with bone metastasis. 5. Anemia. 6. History of myocardial infarction and coronary artery bypass graft. 7. Diabetes mellitus. 8. Hypertension. 9. Dyslipidemia. 10. Impairments in self-care, mobility, and cognition. DISCHARGE DIAGNOSES: 1. Right hip subcapital fracture status post hemiarthroplasty. 2. Parkinson's disease. 3. Dysphagia. 4. History of breast cancer with bone metastasis. 5. Anemia. 6. History of myocardial infarction and coronary artery bypass graft. 7. Diabetes mellitus. 8. Hypertension. 9. Dyslipidemia. 10. Improvements in self-care, mobility, and cognition. HOSPITAL COURSE: The patient was admitted for comprehensive interdisciplinary acute rehab and did m barbara steady functional gains during the course of the stay. The patient progressed from an initial m aximal assist for self-care and mobility tasks and progressed to the point of minimal assist for vinay f-care and mobility including ambulating up to 120 feet with the use of a front-wheeled walker. Moncho pite excellent functional gains, the patient's family reports they were unable to provide the assist ance necessary at home at this time. The patient is now able to tolerate lower level of care. The patient is being discharged to intermediate facility for continued therapy at lower level of care . DISCHARGE MEDICATIONS: Per the medication reconciliation sheet. CONDITION ON DISCHARGE: Stable. Dictated By: REBEKAH MEDRANO/FRANCIE Conf#: [id number] DID#: [id number]
== END 2016-08-13 15:15 | DRG 560 ==
LOC: VRC 21:59
PROVIDERS: ADMIT Internal Medicine Pulmonary Disease; ATTEND Internal Medicine Pulmonary Disease
DX: Z47.1 Aftercare following joint replacement surgery (principal); C79.51 Secondary malignant neoplasm of bone; G20 Parkinson's disease; E11.9 Type 2 diabetes mellitus without complications; D64.9 Anemia, unspecified; I12.9 Hypertensive chronic kidney disease with stage 1 through stage 4 chronic kidney disease, or unspecified chronic kidney disease; R13.10 Dysphagia, unspecified; Z96.641 Presence of right artificial hip joint; E78.5 Hyperlipidemia, unspecified; I25.2 Old myocardial infarction; I25.10 Atherosclerotic heart disease of native coronary artery without angina pectoris; Z95.1 Presence of aortocoronary bypass graft; Z85.3 Personal history of malignant neoplasm of breast; G31.84 Mild cognitive impairment of uncertain or unknown etiology; N18.9 Chronic kidney disease, unspecified; F06.31 Mood disorder due to known physiological condition with depressive features; F06.8 Other specified mental disorders due to known physiological condition
CPT/HCPCS: 72142; 80048; 80053; 81001; 81003; 82962; 83540; 83735; 84100; 85025; 87081; 87086; 92507; 92526; 92610; 97110; 97116; 97150; 97163; 97167; 97530; 97535; 97542; J0696; J1644; J1815; J3475